=== PATIENT | male | born 1945 | race Caucasian/White ===

== ENCOUNTER → 2017-12-13 14:11 | Outpatient (CLI) | payer MEDICARE, OTHER, SELFPAY ==
[2017-12-13 16:53] LABS: Creatinine, Serum 1.09 mg/dL (0.70-1.30); EST Glomerular Filtration Rate 70 mL/min (>60); Est Glom Filt Rate - Afr Amer 85 mL/min (>60); PSA,Total- Diagnostic 5.99 ng/mL (0.0-4.0)
== END ==
PROVIDERS: Family Provider Internal Medicine; PCP Internal Medicine; Visit Provider Nurse Practitioner Adult Health
DX: R97.20 Elevated prostate specific antigen [PSA] (principal)
CPT/HCPCS: 36415; 82565; 84153

== ENCOUNTER → 2017-12-13 17:25 | Outpatient (CLI) | payer MEDICARE, OTHER, SELFPAY | PROVIDERS: Family Provider Internal Medicine; PCP Internal Medicine; Visit Provider Nurse Practitioner Adult Health | DX: R82.99 Other abnormal findings in urine (principal); R97.20 Elevated prostate specific antigen [PSA] | CPT/HCPCS: 36415; 82565; 84153; 87086; 87088 ==

== ENCOUNTER → 2017-12-17 09:19 | Outpatient (CLI) | payer MEDICARE, OTHER, SELFPAY ==
--- NOTE | 2017-12-17 09:23 | US_ITS ---
STUDY: RENAL ULTRASOUND - COMPLETE REASON FOR EXAM: Male, 72 years old. Chronic urinary retention TECHNIQUE: Ultrasound evaluation of the kidneys was performed with real-time and static aguilera-scale imaging. COMPARISON: None. FINDINGS: RIGHT KIDNEY: Normal location of the right kidney, which is normal in size. The right kidney measures 12.4 x 6 x 7.1 cm. There is a normal cortex of the right kidney. The renal cortex measures 1.6 cm. There is no right renal mass or cyst. There are no right renal calculi. There is an extra-renal pelvis of the right kidney. There is no distention of the renal calyces. DISTAL RIGHT URETER: There is non-visualization of the distal right ureter. There is no demonstrated right ureterovesical junction calculus. There is a visualized right ureteral jet. LEFT KIDNEY: Normal location of the left kidney, which is normal in size. The left kidney measures 12.9 x 4.8 x 7.2 cm. There is a normal cortex of the left kidney. The renal cortex measures 2 cm. There are 2 cysts within the left kidney, the largest measuring 2.2 cm. There are no left renal calculi. There is no left hydronephrosis. DISTAL LEFT URETER: There is non-visualization of the distal left ureter. There is no demonstrated left ureterovesical junction calculus. There is a visualized left ureteral jet. AORTA: Not imaged. I.V.C.: Not imaged. BLADDER: The distended urinary bladder has a volume of 638 ml. The empty urinary bladder has a volume of 430 ml. The bladder wall is thickened. There is no demonstrated mass within the urinary bladder. There is some internal debris within the bladder which may represent stasis or inflammatory cells. The prostate volume is measured at 58 mL. US/Kidney and Bladder IMPRESSION: Small left renal cyst. Bladder distention with a large postvoid residual. Electronically Signed: Roni Hackett DO at 10:08 EDT Tel , Service support ,
== END ==
PROVIDERS: Family Provider Internal Medicine; PCP Internal Medicine; Visit Provider Nurse Practitioner Adult Health
DX: R33.9 Retention of urine, unspecified (principal)
CPT/HCPCS: 76770

== ENCOUNTER → 2018-03-18 09:50 | Outpatient (CLI) | payer MEDICARE, OTHER, SELFPAY ==
[2018-03-18 11:08] LABS: PSA,Total- Diagnostic 5.12 ng/mL (0.0-4.0)
== END ==
PROVIDERS: Family Provider Internal Medicine; PCP Internal Medicine; Visit Provider Nurse Practitioner Adult Health
DX: R97.20 Elevated prostate specific antigen [PSA] (principal)
CPT/HCPCS: 36415; 84153

== ENCOUNTER → 2018-09-19 14:22 | Outpatient (CLI) | payer MEDICARE, OTHER, SELFPAY ==
[2015-08-30 11:07] VITALS: BMI 31.4
[2018-09-19 16:04] LABS: Creatinine, Serum 1.11 mg/dL (0.70-1.30); EST Glomerular Filtration Rate 69 mL/min (>60); Est Glom Filt Rate - Afr Amer 83 mL/min (>60); PSA,Total- Diagnostic 5.94 ng/mL (0.0-4.0)
== END ==
PROVIDERS: Family Provider Internal Medicine; PCP Internal Medicine; Referring Provider Nurse Practitioner Adult Health; Visit Provider Nurse Practitioner Adult Health
DX: R97.20 Elevated prostate specific antigen [PSA] (principal); R33.9 Retention of urine, unspecified
CPT/HCPCS: 36415; 82565; 84153

== ENCOUNTER → 2019-03-03 15:53 | Outpatient (CLI) | payer MEDICARE, OTHER, SELFPAY ==
--- NOTE | 2019-03-03 15:57 | MRI_ITS ---
STUDY: MRI LUMBAR SPINE WITHOUT CONTRAST REASON FOR EXAM: Male, 73 years old. Spinal stenosis low back pain TECHNIQUE: Standardized fat and water weighted pulse sequences were obtained in the sagittal and axial planes. COMPARISON: None FINDINGS: There is grade 1 degenerative anterolisthesis of L4 on L5. Remainder of the spine is aligned. Marrow, paraspinous soft tissues and SI joints are normal. Conus medullaris terminates at T12-L1 with normal cauda equina. Spinal canal is patent at all levels. There is [id number] bilateral L4-L5 foraminal stenosis. Remainder of the levels have no significant foraminal stenosis. Lateral recesses are patent at all levels. MRI/Spine Lumbar (Routine) IMPRESSION: 1. Patent thecal sac. 2. L4-L5 spondylolysis, grade 1 anterolisthesis and mild to moderate bilateral foraminal stenosis. Electronically Signed: Venessa Triana, at 18:02 EDT Tel , Service support ,
== END ==
PROVIDERS: Family Provider Family Medicine; PCP Family Medicine; Referring Provider Family Medicine; Visit Provider Family Medicine
DX: M48.00 Spinal stenosis, site unspecified (principal)
CPT/HCPCS: 72148

== ENCOUNTER → 2019-03-23 17:30 | Outpatient (CLI) | payer MEDICARE, OTHER, SELFPAY ==
[2015-08-30 11:07] VITALS: BMI 31.4
== END ==
PROVIDERS: Family Provider Family Medicine; PCP Family Medicine; Referring Provider Nurse Practitioner Adult Health; Visit Provider Nurse Practitioner Adult Health
DX: R82.998 Other abnormal findings in urine (principal)
CPT/HCPCS: 87086; 87088

== ENCOUNTER → 2019-03-28 13:32 | Outpatient (CLI) | payer MEDICARE, OTHER, SELFPAY ==
[2015-08-30 11:07] VITALS: BMI 31.4
--- NOTE | 2019-03-28 13:36 | CT_ITS ---
STUDY: CT ABDOMEN AND PELVIS WITH AND WITHOUT CONTRAST REASON FOR EXAM: Male, 73 years old. Hematuria RADIATION DOSAGE (If Supplied By Facility): CTDIvol = ( 27.18 ) mGy, DLP = ( 3910.70 ) mGycm TECHNIQUE: Transaxial images were obtained from the dome of the diaphragm to the symphysis pubis without oral contrast. IV Isovue 300 100 was administered. Sagittal and coronal images were reconstructed. Individualized dose optimization techniques were used for this CT. COMPARISON: None. FINDINGS: The lung bases are clear. The visualized portions of the heart and pericardium are within normal limits. There are no calcified gallstones present. The liver, spleen, pancreas and adrenal glands are within normal limits. There is a 3 mm nonobstructing stone in the collecting system of the left kidney. There are no additional urinary calculi. There is mild right hydronephrosis with no cause identified on this study. There is no left hydronephrosis. There is symmetric enhancement and excretion noted in the kidneys following contrast administration. There is a 1.4 cm simple cyst in the left kidney. There are no additional renal lesions. The urinary bladder is unremarkable. There is no bowel obstruction or inflammation. There is no abdominal or pelvic free air, free fluid or lymphadenopathy. The aorta is normal in caliber. There are no destructive osseous lesions. CT/CT Abd/Pelvis W/WO Contrast IMPRESSION: 3 mm nonobstructing stone in the collecting system of the left kidney. No additional urinary calculi. Mild right hydronephrosis with no cause identified on this study. No left hydronephrosis. Simple cyst in the left kidney. No additional renal lesions. Electronically Signed: Willy Alford, at 14:19 EDT Tel , Service support ,
[2019-03-28 13:46] LABS: CREATININE FINGERSTICK 0.8 mg/dL (0.70-1.30); EGFR FINGERSTICK > 60.0000 mL/min (>60)
== END ==
PROVIDERS: Family Provider Family Medicine; PCP Family Medicine; Referring Provider Nurse Practitioner Adult Health; Visit Provider Nurse Practitioner Adult Health
DX: R31.29 Other microscopic hematuria (principal)
CPT/HCPCS: 74178; Q9967

== ENCOUNTER 2019-04-05 15:30 | Outpatient (RCR) | payer MEDICARE, OTHER, SELFPAY ==
--- NOTE | 2019-03-15 12:45 | HP.PTEVAL_ITS ---
Patient's Visit Information ANJUM GILBERT is a 73 year old M referred to Physical Therapy by Reema Myers MD with a diagnosis of BACK PAIN AND FORAMINAL STENOSIS AT L4L5. Date of Evaluation: 03/15/19 Physical Therapist: Landy Daniels, PT, Cert MDT - Visit Plan Frequency: 2-3x /Week Duration: 4-6 Weeks Plan: PT 2X'S A WEEK X 5 VISITS TOTAL. POSTURE CORRECTION/STRENGTHENING, INSTRUCTION IN APPROPRIATE BODY MECHANICS AND ACTIVITY MODIFICATIONS. DLS ST ARTING WITH A NEUTRAL SPINE PROGRESSING ROM TOLERATED. INDY LE ROM, STRETCHING AND STRENGTHENING. FOCUS ON HEP INSTRUCTION WITH WRITTEN INSTRUCTION. - Subjective Findings: Work/Leisure: RETIRED. Disability: YES - LOST HEARING IN [place]. Present symptoms: LOW BACK PAIN. NO LE SX'S. Present since: YEARS. Pain Scale: WORST 7/10, LEAST 0/10. Currently: 0/10. Commenced as a result of: NO APPARENT REASON. Symptoms at onset: LOW BACK. Worse: STANDING AND WALKING. Better: BENDING OVER AT THE WAIST, ALEVE, SITTING. Disturbed sleep: NO. P revious history/Previous treatment: UNREMARKABLE. Coughing/sneezing/straining: NEGATIVE. Gait: DISTANCE AND TIME LIMITED. PATIENET REPORTS HE WALKS A LITTLE BENT FORWARD AND TAKES SHORT STEPS. Difficulty initiating urinatin: YES - SEEING A UROLOGIST. Accidents: NO. Unexplained weight loss: NO. Imaging: LUMBAR MRI - STENOSIS. PMH: HTN, HIGH CHOLESTEROL, HEARING LOSS. Recent major surgery: NO - Objective Sitting/Standing Posture: POOR. Lordosis: REDUCED. Lateral shift: NO. Relevant shift: N/A. Active Correction of posture: NE. Other Observations: T HIS PATIENT AMBULATES INDEP'LY INTO TO PT X APPROX 300 FEET WITH INCREASED TRUNK FLEXION AND DECREASED INDY STRIDE LENGTH. NO LOB. Motor deficit: INDY LE'S 5/5 WITH MMT'ING EXCEPT MILD WEAKNESS NOTED IN HIPS. Sensory deficit: NO. ROM deficit: TIGHT INDY HS'S AND HIP FLEXORS. Reflexes: UNABLE TO ELICIT INDY LE DTR'S. Dural Signs: NEGATIVE. Lumbar mvmt loss: flex - MIN. ext - MOD. R SG - MARINO. L SG - MARINO. Core strength: POOR - Goals Goal 1:: DECREASE C/O LOW BACK PAIN/TIGHTNESS Goal Time Frame: 4-6 Weeks Goal 2:: IMPROVE STANDING AND WALKING FUNCTION Goal Time Frame: 4-6 Weeks Goal 3:: INSTRUCT IN PROPHYLAXIS/INDEP WITH HEP FOR CONTINUED IMPROVEMENT ONCE FORMAL PHYSICAL THERAPY CONCLUDES. Goal Time Frame: 4-6 Weeks - Rehabilitation Potential Rehabilitation Potential: Fair - Anticipated Interventions Patient/Client Instruction: Educate patient on: Condition, Plan of Care, Risk Factors, Benefits of Fitness Program For the Purpose of:: To improve self management Therapeutic Exercise to Include: Strength training, Body mechanics, Postural training, Flexibilty training, Dynamic Lumbar Stabilization For the Purpose of:: To decrease pain, To improve muscle performance and motor function, To increase tolerance to activity/condition/position, To improve ability of physical actions for home/community/work/leisure, To improve gait and locomotor functions Thank you for the opportunity to evaluate your patient. For Medicare and Medicare HMO plans, please review the plan of care and approve it. It will need to be FAXED BACK to us at [phone] for Medicare purposes. For Medicare only, by signing this I certify the plan of care. Please let me know if there are questions or concerns regarding this plan of care. Physician Signature: Date:
--- NOTE | 2019-04-12 16:03 | HP.PTDCSUM ---
HP - PT D/C Summary It has been my pleasure to treat ANJUM GILBERT under orders from Reema Myers MD, for the diagnosis of BACK PAIN AND FORAMINAL STENOSIS AT L4L5 for a total of 4 visit(s). Discharge Date: Please see the following information for a summary of their discharge status. - Subjective Subjective: Pt reports that walking long distance and standing is still bothering him. Pt reports not being compliant w/any of the HEP. Too busy - Pain lumbar Pain Intensity (Out of 10): 0 - Objective Objective/Function: Pt feels that at this time, he doesn't feel like he has time to continue PT. Pt is still having pain w/walking. He hasn't been compliant w/HEP and he hasn't been in PT long enough to see as many results as we would like. Pt reports only 10% at this time. - Goals Goal 1:: DECREASE C/O LOW BACK PAIN/TIGHTNESS Goal 2:: IMPROVE STANDING AND WALKING FUNCTION Goal 3:: INSTRUCT IN PROPHYLAXIS/INDEP WITH HEP FOR CONTINUED IMPROVEMENT ONCE FORMAL PHYSICAL THERAPY CONCLUDES. - Plan Plan: PT recheck is needed but pt defers d/t busy schedule. Pt wants today to be last day d/t time restraints. - D/C Information If there are questions or concerns regarding this patient's physical therapy, please feel free to call me at [phone]. Thank you for the referral of this patient. Sincerely, Landy Daniels, PT, Cert MDT
== END 2019-04-05 19:00 | disposition home or self-care (01) ==
LOC: PT 15:30
PROVIDERS: Family Provider Family Medicine; PCP Family Medicine; Referring Provider Family Medicine; Visit Provider Family Medicine
DX: M54.9 Dorsalgia, unspecified (principal)
CPT/HCPCS: 97110; 97162; 97530

== ENCOUNTER 2019-06-07 08:29 | Day surgery (SDC) | payer MEDICARE, OTHER, SELFPAY ==
[2019-05-31 10:09] VITALS: BP 123/73; PULSE 55; RESP 18; TEMP 36.4; O2SAT 97; BMI 30.8
--- NOTE | 2019-05-31 10:29 | SDCEKG_ITS ---
Test Reason : Blood Pressure : / mmHG Vent. Rate : 055 BPM Atrial Rate : 055 BPM P-R Int : 216 ms QRS Dur : 108 ms QT Int : 424 ms P-R-T Axes : 078 053 054 degrees QTc Int : 405 ms Sinus bradycardia with 1st degree A-V block Otherwise normal ECG Confirmed by NANCY VELASQUEZ, PADMINI ([id number]), senior technical editor GIDEON MESA ([id number]) on 06/04/2019 10:06:16 AM Referred By: Hiram Christianson Confirmed By:FLAVIO CRUZ MD
[2019-05-31 10:50] LABS: Hematocrit 50.2 % (40-54); Hemoglobin 16.8 g/dL (13.0-16.5); Mean Corp Hgb Conc 33.5 g/dL (32-36); Mean Corpuscular Hgb 32.4 pg (27.0-32.0); Mean Corpuscular Volume 96.9 fL (80-94); Mean Platelet Vol. 10.7 fl (6.2-12.0); Platelet Count 143 K/mm3 (150-450); RBC Distribution Width CV 13.5 % (11.6-14.6); Red Blood Count 5.18 M/mm3 (4.6-6.2); White Blood Count 6.4 K/mm3 (4.4-11.0)
[2019-06-07] VITALS (10 sets, daily range): BP systolic 124–159; BP diastolic 66–99; PULSE 50–58; RESP 15–18; TEMP 36.4–36.8; O2SAT 95–100; BMI 30.8; BMI 30.9
[2019-06-07] MEDS: Lactated Ringers 1,000 ML 100 ML IV ×2 (09:07→13:20)
--- NOTE | 2019-06-07 10:30 | PROS_PTH ---
PATIENT: ANJUM GILBERT LOC: [facility] [place] U#:[id number] AGE/SX: 73/M ROOM: RE06/07/[address]: Dr. Hiram Christianson MD : [id number] BED: DIS: 06/08/2019 SPEC #: [id number] RECD: 06/07/19 16:47 STATUS: SHERLEY CINDY #: [id number] ARIC: 06/07/19 10:[address]: Hiram Christianson DEPT: SURGICAL PATHOLOGY RECD BY: Juan Carlos Worthy ENTERED: 06/08/19 09:56 SP TYPE: TURP OTHR DR: Dr. Reema Myers MD Tissues: Prostate, NOS Procedures: Surgery Specimen Level IV HEADER OPERATION: Cysto, TUR prostate, Olympus PRE-OP DIAGNOSIS: BPH with obstruction TISSUE SUBMITTED: Prostate tissue MICROSCOPIC DIAGNOSIS Prostate, transurethral resection: Benign nodular hyperplasia, glandular and stromal types. Mild chronic inflammation. AM:belkis 06/09/19 MICROSCOPIC DESCRIPTION Slides are reviewed. GROSS DESCRIPTION Received is one container labeled with the patient's name and designated prostate tissue. The specimen consists of multiple irregular fragments of pink-cedillo, rubbery, soft tissue that in aggregate weigh 9.3 gm and measure in aggregate 6 x 6 x 0.6 cm. The entire specimen is submitted in nine cassettes. / AM:belkis 06/08/19 TC:3 CPT: 49323
[2019-06-07] MEDS: Cefazolin 2 GM in 0.9% Normal Saline 100 ML IV (12:18)
--- NOTE | 2019-06-07 13:07 | DCINST_ITS ---
Discharge Diet: Light diet - advance as tolerated, Soft diet Discharge Activity: May not drive while taking narcotic pain medications., May Shower Lifting Restrictions: No lifting x 6 weeks. Call your doctor if your incision/area has: Sudden Increased Bleeding Call your doctor if you observe: Fever of 101 or Higher, Inability to urinate Suture Line Care: Avoid Pulling/Pushing, Avoid Pinching/Bending Instructions: Transurethral Resection of the Prostate (TURP): Home Recovery Allergies/Adverse Reactions: Allergies atorvastatin calcium [From Lipitor] Allergy (Verified 06/07/19 08:46) muscle aches Medications to take at Discharge Metoprolol Tartrate [Lopressor (beta xenia)] 25 mg PO BID 08/23/15 Simvastatin [Zocor] 80 mg PO QHS 08/23/15 [place]-3 Fatty Acids/Fish Oil [Fish Oil 1,000 mg Capsule] 3 ea PO BID 05/31/19 Ciprofloxacin [Cipro] 500 mg PO BID #14 tab 06/07/19 Hydrocodone/Acetaminophen [[place] 5-325 Tablet] 1 each PO Q4H PRN PRN 5 Days #14 tablet 06/07/19 The following prescriptions were given: Ciprofloxacin [Cipro] 500 mg PO BID #14 tab Transmission Status: Pending to [facility] Hydrocodone/Acetaminophen [[place] 5-325 Tablet] 1 each PO Q4H PRN PRN 5 Days #14 tablet PRN Reason: Pain Score 1-10/10 Transmission Status: Sent to [facility] Primary Care Physician: Reema Myers MD [Primary Care Provider] - Test Results: Test results from this visit will be discussed in further detail at your follow- up appointment, if applicable. Please Follow Up With: Hiram Christianson MD When: please call to make an appointment. Proposed Discharge Date: 06/08/19
--- NOTE | 2019-06-07 13:12 | OP.PCM_ITS ---
Report of Operation Date of Procedure: 06/07/19 Pre-Operative Diagnosis: BPH with obstruction Post-Operative Diagnosis: Same Surgery/Procedure Performed:: Transurethral resection of the prostate Description of Surgical Findings:: 73-year-old male was taken back to the operating room at the smooth induction of general anesthesia he was placed supine on the table and then in dorsolithotomy position. Legs were in stirrups were made sure the legs were properly padded and we made sure he was properly padded on the table we then prepped and draped the penis and testicle usual sterile fashion I then went into the bladder with a 21 [place] rigid cystourethroscope using a 30 degree lens the entire length urethra is normal the sphincter was intact. Identified the verumontanum. Identified bilateral hypertrophy with obstruction. Inside the bladder he did have a very distended smooth sort of floppy looking atonic bladder. The trigone was identified the right and left ureter orifice was identified there was no tumors or stones within the bladder but again is very smooth non-trabeculated floppy looking bladder when I drained the bladder, flopped over and itself it looks like it from chronic obstruction the bladder is been stretched out the muscle appeared weak. I then removed the cystoscope I went in with a 24 [place] noncontinuous flow flow bipolar resectoscope, I then started resecting the prostate resected the first the floor the prostate all the way back to the verumontanum I then resected the right lobe of the prostate over the beat all the way to the apex of the left lobe prostate all the way to the apex I then very carefully resected the apical tissue made sure that the sphincter mean Moshe remain intact I did not do any resection past the verumontanum I Ellik out all the chips obtained good hemostasis had a nice smooth resection all the way from the verumontanum into the bladder neck a wide open channel I did a flow test because of a weak flow because he had a, floppy looking bladder could not get a really strong flow but there was really no other tissues were resected a nice wide open channel. Obtain hemostasis with electrocautery placed the catheter into the bladder the prostate size a prior about 40 g size prostate resected about 40 g of tissue and then I put a catheter bladder put on continuous bladder irrigation and manually irrigated the urine was nice and clear patient was extubated transferred to the table taken back to PACU in good condition. Type of Anesthesia:: General Drains: 22fr 3 way - Admit VTE Documentation VTE Present on Admission: No VTE Mechan Device Prophylaxis: SCD's
--- NOTE | 2019-06-07 13:16 | HP.PCM_ITS ---
History of Present Illness Date of Admission: 06/07/19 Chief Complaint: bph with obstruction The patient is a 73 year old male with BPH and obstruction presents the hospital today for a TURP to hopefully alleviate urinary symptoms Past Medical History Allergies atorvastatin calcium [From Lipitor] Allergy (Verified 06/07/19 08:46) muscle aches Home Medications: Ambulatory Orders Medication Instructions Recorded Metoprolol Tartrate [Lopressor 25 mg PO BID 08/23/15 (beta xenia)] Simvastatin [Zocor] 80 mg PO QHS 08/23/15 [place]-3 Fatty Acids/Fish Oil [Fish 3 ea PO BID 05/31/19 Oil 1,000 mg Capsule] Ciprofloxacin [Cipro] 500 mg PO BID #14 tab 06/07/19 Hydrocodone/Acetaminophen [[place] 1 each PO Q4H PRN PRN 5 Days #14 06/07/19 5-325 Tablet] tablet Smoking Status: Current every day smoker Tobacco Use: Cigarettes VTE Information - Inpt Only VTE Present on Admission: No - Physical Exam Vitals/I&O's: Vital Signs Temp Pulse Resp BP Pulse Ox 97.7 F L 57 L 15 128/81 H 95 06/07/19 08:47 06/07/19 08:47 06/07/19 08:47 06/07/19 08:47 06/07/19 08:47 Oxygen Delivery Method Room Air Weight: 106.1 kg Body Mass Index (BMI) 30.8 General: Alert, Oriented x3, Cooperative HEENT: Atraumatic, PERRLA, EOMI, Normocephalic Neck: Supple, No JVD, Negative Carotid Bruits Lungs: Clear to auscultation, Normal air movement Cardiovascular: Regular rate, No murmurs Abdomen: Bowel Sounds Present, Soft, Non Tender Extremities: No edema, Capillary Refill Less than 3 Seconds Skin: No rashes, No breakdown Musculoskeletal: No Tenderness to Palpation of Joints or Extremities Neurological: Cranial nerves II-XII grossly intact Psych/Mental Status: Normal Affect, Appropriate Current Medications Acetaminophen (Tylenol) 500 mg PO Q4H PRN PRN PRN Reason: Pain Score 1-10/10 /Headache Belladonna Alkaloids/Opium (B & O) 60 mg RECTAL Q6H PRN PRN PRN Reason: Spasm Docusate Sodium (Colace) 100 mg PO BID DANIELLE Lactated Ringer's () 1,000 mls @ 100 mls/hr IV .Q10H [facility] Last Admin: 06/07/19 09:07 Dose: 100 mls/hr Documented by: Sodium Chloride () 1,000 mls @ 125 mls/hr IV .Q8H [facility] Ciprofloxacin (Cipro) 400 mg in 200 mls @ 200 mls/hr IV Q12 [facility] Stop: 06/08/19 10:59 Ibuprofen (Motrin) 600 mg PO Q6H PRN PRN PRN Reason: Pain Score 1-10/10 Magnesium Hydroxide (Milk Of Magnesia) 15 ml PO DAILY [facility] Metoclopramide HCl (Reglan) 10 mg IV Q8H PRN PRN PRN Reason: Nausea/vomiting Ondansetron HCl (Zofran) 4 mg IV Q6H PRN PRN PRN Reason: Nausea Oxycodone HCl (Oxyir) 5 mg PO Q4H PRN PRN PRN Reason: Pain Score 1-10/10 Pantoprazole Sodium (Protonix) 20 mg PO DAILY [facility] Tolterodine Tartrate (Detrol La) 4 mg PO DAILY PRN PRN PRN Reason: Spasms Assessment/Plan Plan to proceed with a TURP spoke to the patient regarding the surgery risk and benefits were discussed including the risk of incontinence damage to the sphincter, the risk of failure to cure his urinary symptoms failure to relieve symptoms with with surgery. Risk of bleeding, risk of infection he knows he n eed a catheter afterwards and has been 1 night in the hospital also we talked with the risk of anesthesia.
[2019-06-07] MEDS: 0.45% Normal Saline 1,000 ML 125 ML IV ×2 (15:00→21:33)
[2019-06-07] MEDS: Docusate Sodium 100 MG Capsule PO (21:33)
[2019-06-07] MEDS: Ciprofloxacin 400 MG/200 ML BAG 200 MG IV (21:34)
[2019-06-08 02:10] VITALS: BP 115/60; PULSE 51; RESP 16; TEMP 36.7; O2SAT 94
[2019-06-08] MEDS: 0.45% Normal Saline 1,000 ML 125 ML IV (06:22)
[2019-06-08 06:38] LABS: Hematocrit 42.9 % (40-54); Hemoglobin 14.5 g/dL (13.0-16.5); Mean Corp Hgb Conc 33.8 g/dL (32-36); Mean Corpuscular Hgb 32.4 pg (27.0-32.0); Mean Platelet Vol. 10.7 fl (6.2-12.0); Platelet Count 135 K/mm3 (150-450); RBC Distribution Width CV 13.6 % (11.6-14.6); RBC Distribution Width SD 48.5 fl (35.1-43.9); Red Blood Count 4.47 M/mm3 (4.6-6.2); White Blood Count 9.8 K/mm3 (4.4-11.0)
[2019-06-08 07:01] LABS: Anion Gap 5 (5-15); BUN 8 mg/dL (7-18); BUN/Creat Ratio 9.2 RATIO (10-20); Calcium,Total 8.2 mg/dL (8.5-10.1); Chloride 111 mmol/L (98-107); Creatinine, Serum 0.86 mg/dL (0.70-1.30); EST Glomerular Filtration Rate 91 mL/min (>60); Est Glom Filt Rate - Afr Amer 111 mL/min (>60); Estimated Creatinine Clearance 81.46 ml/min; Glucose 99 mg/dL (74-106); Potassium 3.7 mmol/L (3.5-5.1); Sodium Level 142 mmol/L (136-145)
[2019-06-08 07:30] VITALS: BP 130/72; PULSE 64; RESP 16; TEMP 36.8; O2SAT 94
[2019-06-08] MEDS: Ciprofloxacin 400 MG/200 ML BAG 200 MG IV (08:40)
[2019-06-08] MEDS: Docusate Sodium 100 MG Capsule PO (08:41)
[2019-06-08] MEDS: Pantoprazole Sodium 20 MG Tablet PO (08:41)
[2019-06-08 10:27] VITALS: PULSE 65
[2019-06-08] MEDS: Metoprolol Tartrate 25 MG Tablet PO (10:27)
[2019-06-08 12:53] VITALS: BP 152/84; PULSE 60; RESP 16; TEMP 36.3; O2SAT 97
== END 2019-06-08 12:59 | disposition home or self-care (01) ==
LOC: SDC 08:29 → AC 08:31 → MS2 13:14
PROVIDERS: Anesthesiology; Family Provider Family Medicine; PCP Family Medicine; Referring Provider Urology; Visit Provider Urology
PROC: (CPT 52601; principal; 2019-06-07 10:20)
DX: N40.1 Benign prostatic hyperplasia with lower urinary tract symptoms (principal); N13.8 Other obstructive and reflux uropathy; R33.8 Other retention of urine; I10 Essential (primary) hypertension; E78.00 Pure hypercholesterolemia, unspecified; Z79.899 Other long term (current) drug therapy; F17.210 Nicotine dependence, cigarettes, uncomplicated
CPT/HCPCS: 52601; 36415; 80048; 85027; 88305; 93005; J7120; J0744

== ENCOUNTER → 2019-12-26 13:47 | Outpatient (CLI) | payer MEDICARE, OTHER, SELFPAY ==
[2019-06-07 15:06] VITALS: BMI 30.9
[2019-12-26 16:07] LABS: Anion Gap 6 (5-15); BUN 18 mg/dL (7-18); BUN/Creat Ratio 19.8 RATIO (10-20); Calcium,Total 8.8 mg/dL (8.5-10.1); Chloride 110 mmol/L (98-107); Creatinine, Serum 0.91 mg/dL (0.70-1.30); EST Glomerular Filtration Rate 86 mL/min (>60); Est Glom Filt Rate - Afr Amer 104 mL/min (>60); Glucose 97 mg/dL (74-106); PSA,Total- Diagnostic 4.61 ng/mL (0.0-4.0); Potassium 4.1 mmol/L (3.5-5.1); Sodium Level 142 mmol/L (136-145)
== END ==
PROVIDERS: PCP Family Medicine; Referring Provider Urology; Visit Provider Urology
DX: N40.1 Benign prostatic hyperplasia with lower urinary tract symptoms (principal)
CPT/HCPCS: 36415; 80048; 84153

== ENCOUNTER → 2020-04-29 | Outpatient (CLI) | payer MEDICARE, OTHER, SELFPAY ==
[2019-06-07 15:06] VITALS: BMI 30.9
== END | disposition home or self-care (01) ==
LOC: LABSPEC 17:08
PROVIDERS: PCP Family Medicine; Visit Provider Urology
DX: N39.0 Urinary tract infection, site not specified (principal)
CPT/HCPCS: 87077; 87086; 87088; 87186

== ENCOUNTER → 2021-03-31 08:08 | Outpatient (CLI) | payer MEDICARE, OTHER, SELFPAY ==
--- NOTE | 2021-03-31 08:10 | ECHOD_ITS ---
Reason For Study: SFIB Procedure This was a 2D Doppler, Color Flow transthoracic echocardiogram. Exam performed in department. Left Ventricle Normal LV size. Left ventricular systolic function is normal. The estimated ejection fraction is 60 %. No regional wall motion abnormalities noted. Right Ventricle Normal RV size. Normal systolic function. Atria The left atrium is mildly enlarged. Normal right atrium. Mitral Valve Normal mitral valve. Tricuspid Valve Normal tricuspid valve. Normal pulmonary artery pressure. Mild tricuspid valve insufficiency. Pulmonary artery systolic pressure is 30 mmHg. Aortic Valve Trisinus/trileaflet aortic valve. Mild focal aortic valve calcification. Mild (1+) aortic valve insufficiency. Pulmonic Valve Normal pulmonic valve. Great Vessels Mild to moderately dilated aortic root. The pulmonary artery is normal size. Normal inferior vena cava. Pericardium/Pleural No pericardial effusion. MMode/2D Measurements & Calculations LVIDd: 5.0 cm IVSd: 1.1 cm Ao root diam: 4.0 cm LVIDs: 3.5 cm LVPWd: 1.1 cm RVDd: 3.3 cm FS: 31.0 % LAV(MOD-bp): 81.3 ml LVAd ap4: 24.7 cm2 LVAd ap2: 24.9 cm2 LAV(MOD-bp) Indexed: 35.5 ml/m2 LVLd ap4: 7.9 cm LVLd ap2: 8.0 cm LAV(MOD-sp2): 79.8 ml EDV(MOD-sp4): 63.5 ml EDV(MOD-sp2): 66.0 ml LAV(MOD-sp4): 81.0 ml EDV(sp4-el): 65.6 ml EDV(sp2-el): 66.3 ml LVAs ap4: 14.0 cm2 LVAs ap2: 13.5 cm2 LVLs ap4: 6.9 cm LVLs ap2: 6.6 cm ESV(MOD-sp4): 26.3 ml ESV(MOD-sp2): 23.1 ml ESV(sp4-el): 24.2 ml ESV(sp2-el): 23.6 ml EF(MOD-sp4): 58.5 % EF(MOD-sp2): 65.0 % EF(sp4-el): 63.1 % SV(MOD-sp4): 37.2 ml SV(MOD-sp2): 42.9 ml SV(sp4-el): 41.4 ml LA dimension(2D): 4.5 cm LA A4 area: 26.3 cm2 RA A4 area: 20.7 cm2 Doppler Measurements & Calculations MV E max michael: 102.3 cm/sec Ao V2 max: 129.1 cm/sec LV V1 max: 117.1 cm/sec Ao max P.7 mmHg LV V1 max P.5 mmHg PA V2 max: 87.5 cm/sec TR max michael: 258.0 cm/sec TR max P.6 mmHg ECHO/Echo Complete Interpretation Summary Normal LV size. Left ventricular systolic function is normal. The estimated ejection fraction is 60 %. Mild to moderately dilated aortic root. The left atrium is mildly enlarged. Ordering Physician: Matthew Dodd Referring Physician: NOHELIA SOLORIO Performed By: Mojgan Oliver, NAY, RVT
== END ==
PROVIDERS: PCP Family Medicine; Referring Provider Internal Medicine Cardiovascular Disease; Visit Provider Internal Medicine Cardiovascular Disease
DX: R94.31 Abnormal electrocardiogram [ECG] [EKG] (principal); I48.91 Unspecified atrial fibrillation
CPT/HCPCS: 93225; 93226; 93306

== ENCOUNTER → 2021-04-16 06:45 | Outpatient (CLI) | payer MEDICARE, OTHER, SELFPAY ==
--- NOTE | 2021-04-16 13:02 | STRESSREP ---
Stress Test Report Pharmacologic myocardial perfusion stress test. 75-year-old man with a history of new onset atrial fibrillation. Stress protocol: Resting EKG demonstrates atrial fibrillation with a rate of 79 bpm normal intervals are noted resting blood pressure is 142/92 mmHg. 0.4 mg of regadenoson was infused per usual protocol followed by rapid intravenous saline flush injection continuous EKG monitoring was performed. The maximum heart rate attained was 103 bpm which was 72% of maximum predicted heart rate the maximum workload was [address] changes were noted with noted notion of ischemia. The peak blood pressure is 142/92 mmHg. Myocardial perfusion protocol. 14.6 mCi of technetium 99m sestamibi was injected at rest. 0.4 mg of regadenoson was infused per usual protocol. At peak infusion 44.3 mCi of technetium 99m sestamibi was injected stress images were obtained stress and rest images were reconstructed and compared in the short axis vertical long and horizontal long axis. Gated images were also obtained. Perfusion SPECT analysis: Review of the stress images demonstrate normal uptake of tracer noted in all areas of the myocardium. The resting images similarly demonstrate normal uptake of tracer noted in all areas of the myocardium. No areas of reversibility are noted to suggest ischemia and no previous infarct is noted. Gated SPECT analysis: The gated ejection fraction is 58%. Conclusion: Normal pharmacologic myocardial perfusion stress test. Preserved ejection fraction. Atrial fibrillation noted.
== END ==
PROVIDERS: PCP Family Medicine; Referring Provider Internal Medicine Cardiovascular Disease; Visit Provider Internal Medicine Cardiovascular Disease
DX: I48.91 Unspecified atrial fibrillation (principal); R94.31 Abnormal electrocardiogram [ECG] [EKG]
CPT/HCPCS: 78452; 93017; A9500; A4216; J2785

== ENCOUNTER → 2021-10-31 | Outpatient (CLI) | payer MEDICARE, OTHER, SELFPAY ==
[2021-10-31 16:04] LABS: Absolute Lymphocyte Count 1.47 X10^3/uL (0.83-4.51); Absolute Neutrophil Count 3.8 X10^3/uL (2.0-7.7); Basophil# 0.07 X10^3/uL; Basophil% 1.1 % (0-1); Eosinophil# 0.44 X10^3/uL; Eosinophils% 6.6 % (0-5); Hematocrit 39.8 % (40-54); Lymphocyte # 1.47 X10^3/ul (0.83-4.51); Lymphocyte % 22.1 % (19-41); Mean Corp Hgb Conc 32.7 g/dL (32-36); Mean Corpuscular Hgb 31.9 pg (27.0-32.0); Mean Corpuscular Volume 97.5 fL (80-94); Mean Platelet Vol. 10.8 fl (6.2-12.0); Monocyte# 0.58 X10^3/uL; Monocyte% 8.7 % (0-10); NRBC Flagged by Analyzer 0 % (0-5); Neutrophil # 3.84 X10^3/uL (2.7-7.7); Neutrophil % 57.7 % (47-70); Platelet Count 161 K/mm3 (150-450); RBC Distribution Width CV 14.7 % (11.6-14.6); RBC Distribution Width SD 52.8 fl (35.1-43.9); Red Blood Count 4.08 M/mm3 (4.6-6.2); White Blood Count 6.7 K/mm3 (4.4-11.0)
[2021-10-31 17:02] LABS: Anion Gap 3 (5-15); BUN 17 mg/dL (7-18); BUN/Creat Ratio 14.5 RATIO (10-20); Calcium,Total 8.7 mg/dL (8.5-10.1); Chloride 109 mmol/L (98-107); Creatinine, Serum 1.17 mg/dL (0.70-1.30); EST Glomerular Filtration Rate 64 mL/min (>60); Est Glom Filt Rate - Afr Amer 78 mL/min (>60); Glucose 119 mg/dL (74-106); Potassium 4.1 mmol/L (3.5-5.1); Sodium Level 141 mmol/L (136-145); T4 Free Direct 1.01 ng/dL (0.76-1.46); Thyroid Stim Hormone (TSH) 1.68 uIU/mL (0.358-3.74)
== END | disposition home or self-care (01) ==
PROVIDERS: PCP Family Medicine; Referring Provider Nurse Practitioner Gerontology; Visit Provider Nurse Practitioner Gerontology
DX: R53.83 Other fatigue (principal)
CPT/HCPCS: 36415; 80048; 84439; 84443; 85025

== ENCOUNTER → 2021-11-13 | Outpatient (CLI) | payer MEDICARE, OTHER, SELFPAY ==
--- NOTE | 2021-11-13 13:01 | CDU_ITS ---
Reason For Study: dizziness Rt. Velocities/BP Lt. Velocities/BP Prox CCA 73.4/18.6 cm/sec. Prox CCA 79.6/26.7 cm/sec. Mid CCA 55.2/13.4 cm/sec. Mid CCA 77.8/20.1 cm/sec. Dist CCA 52.6/17.3 cm/sec. Dist CCA 61.7/20.1 cm/sec. Prox ICA 39.9/14.6 cm/sec. Prox ICA 54.1/24.8 cm/sec. Mid ICA 57.5/22.3 cm/sec. Mid ICA 50.4/22.0 cm/sec. Dist ICA 45.9/19.6 cm/sec. Dist ICA 77.8/33.3 cm/sec. Rt. ICA/CCA = 1.0. Lt. ICA/CCA = 1.0. Prox ECA 65.6/17.3 cm/sec. Prox ECA 60.7/14.5 cm/sec. Rt. Vert. 26.4/7.2 cm/sec. Lt. Vert. 40.0/17.3 cm/sec. Right Extracranial There is intimal thickening but no significant atherosclerotic plaque noted in the right common carotid artery. There is intimal thickening but no significant atherosclerotic plaque noted in the right internal carotid artery. There is intimal thickening but no significant atherosclerotic plaque noted in the right external carotid artery. Antegrade flow is noted in the right vertebral artery. Left Extracranial There is homogeneous, smooth atherosclerotic plaque noted in the left common carotid artery. There is intimal thickening but no significant atherosclerotic plaque noted in the left internal carotid artery. There is heterogeneous, irregular atherosclerotic plaque noted in the left external carotid artery. Antegrade flow is noted in the left vertebral artery. Procedure Carotid Duplex [id number]. This is a Carotid Duplex examination using B-mode, color flow and specral Doppler. The exam was diagnostic. Exam performed in department. VL/Carotid Duplex Ultrasound Interpretation Summary Mild thickening of the right proximal internal carotid artery with less than 50 % stenosis Less than 50% stenosis right external carotid artery Intimal thickening at the proximal left internal carotid artery with less than 50% stenosis Less than 50% stenosis left external carotid artery Patent and antegrade vertebral arteries bilaterally Ordering Physician: Erin Holland Performed By: Osmar Palumbo RVT
== END | disposition home or self-care (01) ==
LOC: CVS 12:59
PROVIDERS: PCP Family Medicine; Referring Provider Nurse Practitioner Gerontology; Visit Provider Nurse Practitioner Gerontology
DX: R42 Dizziness and giddiness (principal)
CPT/HCPCS: 93880

== ENCOUNTER 2022-02-02 10:27 | Day surgery (SDC) | payer MEDICARE, OTHER, SELFPAY ==
[2022-01-30 08:38] VITALS: BMI 30.9
--- NOTE | 2022-01-30 11:56 | RAD_ITS ---
EXAM: XR CHEST, 2 VIEWS CLINICAL INDICATION: dyspnea TECHNIQUE: Frontal and lateral views of the chest. This report was created using [employer] report generation technology. COMPARISON: None. FINDINGS: LUNGS AND PLEURAL SPACES: Unremarkable. No consolidation or edema. No pneumothorax. No effusion. HEART: Unremarkable. Cardiac silhouette not enlarged. MEDIASTINUM: Central airways and mediastinal contour are unremarkable. BONES/JOINTS: Unremarkable. SOFT TISSUES: Unremarkable. RAD/Chest PA and Lateral IMPRESSION: No radiographic evidence of acute cardiopulmonary disease. Electronically Signed: Aaron Portillo MD at 13:53 EDT ,
[2022-01-30 12:25] LABS: Anion Gap 4 (5-15); BUN 16 mg/dL (7-18); BUN/Creat Ratio 15.2 RATIO (10-20); Chloride 110 mmol/L (98-107); Creatinine, Serum 1.05 mg/dL (0.70-1.30); EST Glomerular Filtration Rate 73 mL/min (>60); Est Glom Filt Rate - Afr Amer 88 mL/min (>60); Estimated Creatinine Clearance 65.53 ml/min; Glucose 98 mg/dL (74-106); Potassium 4.3 mmol/L (3.5-5.1); Sodium Level 142 mmol/L (136-145)
--- NOTE | 2022-02-02 12:43 | PCM.OP.BLANK ---
Problems Associated Problem List Diagnoses (1) Longstanding persistent atrial fibrillation: Operative Report Date of Procedure: 02/02/22 DC cardioversion. 76-year-old man with a history of persistent atrial fibrillation. The patient was brought to the cardiac catheterization lab in the postabsorptive nonsedated state. Patient was seen by Dr. Whittington of the critical care division. Informed consent was obtained. Anterior-posterior pads were applied. 40 mg of intravenous propofol was injected and the patient received 200 J of synchronized DC cardioversion energy with prompt reversal to sinus rhythm. Patient tolerated the procedure well. Successful DC cardioversion from atrial fibrillation to sinus rhythm. Follow-up as per office protocol.
--- NOTE | 2022-02-02 13:20 | PRO.PCM_ITS ---
Procedure Report Date of Procedure: 02/02/22 CONSCIOUS SEDATION REPORT DATE OF SERVICE: February 02, 2022 BRIEF HISTORY OF PRESENT ILLNESS: The patient is a 76-year-old male who presented to [facility] for an elective outpatient cardioversion. He is currently anticoagulated on Eliquis. His last surface echocardiogram demonstrated an ejection fraction of approximately 60%. The patient has never been diagnosed with obstructive sleep apnea. He does have a prior tobacco abuse history, but has never been diagnosed with COPD or asthma. He denies any prior anesthetic complications. PHYSICAL EXAMINATION: VITAL SIGNS: Reviewed and were acceptable. GENERAL: The patient is a male, in no apparent distress, speaking in full sentences. HEENT: Normocephalic, atraumatic. Mucous membranes are moist and pink. Good mouth opening noted. Trachea is midline. MP II CHEST: S1, S2 irregularly irregular. No murmurs, rubs or gallops were noted. LUNGS: Clear to auscultation bilaterally without appreciable wheezes, rales or rhonchi. ABDOMEN: Soft, nontender, nondistended. Positive bowel sounds. EXTREMITIES: There is no clubbing, cyanosis or edema. ASA Class: II DESCRIPTION OF PROCEDURE: After confirmation of informed consent, the patient's anesthesia plan was reviewed in detail. Propofol was chosen. Risks and benefits were reviewed and the patient agreed to proceed. At 1238, the patient was given 40 mg of propofol. The patient achieved an appropriate level of sedation and was given a 200 joule synchronized cardioversion by Dr. Dodd at the bedside. This was successful in achieving normal sinus rhythm. The patient was monitored until 1250, at which time he reached his baseline mental status and function. The patient tolerated the procedure well. COMPLICATIONS: None ESTIMATED BLOOD LOSS: None RECOMMENDATIONS: Okay to recover in usual fashion. Procedures Pulmonary 9xxxx: [id number] Con Sedation
== END 2022-02-02 13:45 | disposition home or self-care (01) ==
LOC: CLSP 10:28
PROVIDERS: Physician Assistant Medical; PCP Family Medicine; Referring Provider Internal Medicine Cardiovascular Disease; Visit Provider Internal Medicine Cardiovascular Disease
DX: I48.11 Longstanding persistent atrial fibrillation (principal); N40.0 Benign prostatic hyperplasia without lower urinary tract symptoms; I10 Essential (primary) hypertension; E78.5 Hyperlipidemia, unspecified; E66.9 Obesity, unspecified; Z79.01 Long term (current) use of 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; Z79.899 Other long term (current) drug therapy; Z87.891 Personal history of nicotine dependence; Z68.31 Body mass index [BMI] 31.0-31.9, adult
CPT/HCPCS: 36415; 71046; 80048; 92960; 93005; J7040

== ENCOUNTER 2022-05-06 10:18 | Day surgery (SDC) | payer MEDICARE, OTHER, SELFPAY ==
[2022-04-27 11:50] LABS: Anion Gap 8 (5-15); BUN 16 mg/dL (7-18); BUN/Creat Ratio 13.1 RATIO (10-20); Calcium,Total 9.2 mg/dL (8.5-10.1); Chloride 107 mmol/L (98-107); Creatinine, Serum 1.22 mg/dL (0.70-1.30); EST Glomerular Filtration Rate 61 mL/min (>60); Est Glom Filt Rate - Afr Amer 74 mL/min (>60); Glucose 198 mg/dL (74-106); Potassium 4.2 mmol/L (3.5-5.1); Sodium Level 145 mmol/L (136-145)
[2022-05-05 08:53] VITALS: BMI 31.5
--- NOTE | 2022-05-06 12:19 | OP.PCM_ITS ---
Operative Report Date of Procedure: 05/06/22 DC cardioversion. 76-year-old man with a history of symptomatic atrial fibrillation. Patient has been appropriately therapeutically anticoagulated. Patient was seen by Dr. Aldrich of the critical care division informed consent was obtained. Anterior- posterior pads were applied. 60 mg of intravenous propofol was then administered. 200 J of synchronized DC cardioversion energy was applied with prompt reversal to sinus rhythm. Patient was noted to be bradycardic. Patient tolerated the procedure well. Conclusion: Successful DC cardioversion from atrial fibrillation to sinus rhythm. Continue current medications except for beta-xenia. Follow-up as per office protocol.
--- NOTE | 2022-05-06 14:55 | PCM.OP.PRO ---
Procedure Report Date of Procedure: 05/06/22 CONSCIOUS SEDATION REPORT BRIEF HISTORY OF PRESENT ILLNESS: The patient is a 76-year-old male who presented to [facility] for an elective outpatient cardioversion due to underlying atrial fibrillation. The patient reports no PO intake since midnight, but is currently therapeutic on anticoagulation. The patient does not have a history of EDEN, but does report snoring at baseline. The patient reports no history of smoking or COPD. The patient denies any recent constitutional symptoms such as fevers, chills, nausea or vomiting. The patient denies previous applicable anesthetic complications. Patient's last known ejection fraction was 60%. Patient did have a cardioversion in January and tolerated propofol well. PHYSICAL EXAMINATION: VITAL SIGNS: Reviewed and were acceptable. GENERAL: The patient is a male, in no apparent distress, speaking in full sentences. HEENT: Normocephalic, atraumatic. Mucous membranes are moist and pink. Good mouth opening noted. Trachea is midline. Good neck mobility. MP IV CHEST: S1, S2 irregularly irregular. No murmurs, rubs or gallops were noted. LUNGS: Clear to auscultation bilaterally without appreciable wheezes, rales or rhonchi. ABDOMEN: Soft, nontender, nondistended. Positive bowel sounds. EXTREMITIES: There is no clubbing, cyanosis or edema. ASA Class: II DESCRIPTION OF PROCEDURE: After confirmation of informed consent, the patient's anesthesia plan was reviewed in detail. Propofol was chosen. Risks and benefits were reviewed and the patient agreed to proceed. At 12:08 PM, the patient was given 40 mg of propofol. The patient required a total of 60 mg of propofol throughout the procedure to achieve appropriate sedation. The patient achieved an appropriate level of sedation and received 1 attempt synchronized cardioversion, at [address] Dodd at the bedside. This was successful in achieving normal sinus rhythm. The patient did have significant sinus bradycardia initially after cardioversion. The patient was monitored until 12:22 PM, at which time the patient reached their baseline mental status and function. The patient tolerated the procedure well. COMPLICATIONS: None ESTIMATED BLOOD LOSS: None RECOMMENDATIONS: Okay to recover in usual fashion. Procedures Pulmonary 9xxxx: [id number] Con Sedation
== END 2022-05-06 13:20 | disposition home or self-care (01) ==
LOC: CLSP 10:19
PROVIDERS: Physician Assistant Medical; PCP Family Medicine; Referring Provider Internal Medicine Cardiovascular Disease; Visit Provider Internal Medicine Cardiovascular Disease
DX: I48.11 Longstanding persistent atrial fibrillation (principal); E78.5 Hyperlipidemia, unspecified; I10 Essential (primary) hypertension; Z79.899 Other long term (current) drug therapy; Z79.01 Long term (current) use of 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; Z87.891 Personal history of nicotine dependence
CPT/HCPCS: 36415; 80048; 92960; 93005; J7040

== ENCOUNTER 2022-05-27 10:26 | Day surgery (SDC) | payer MEDICARE, OTHER, SELFPAY ==
--- NOTE | 2022-05-25 10:49 | PCM.HP.BLA ---
History and Physical Date of Admission: 05/27/22 Aj Serrano is a 76-year-old male that presents today for a cardioversion while on amiodarone. He has a history of? hypertension and hyperlipidemia. He presented to our office for an evaluation.? He had been talking to a friend about atrial fibrillation and mentioned whether he had ever been checked out for atrial fibrillation.? Incidentally he was noted to have an irregular heartbeat and his electrocardiogram which was performed demonstrated atrial fibrillation with a rate of 77 bpm.? His most recent Holter monitor demonstrated atrial fibrillation.? His echocardiogram and stress test results are noted below. In 01/2022, he did undergo an unsuccessful cardioversion.? He was started on amiodarone with plans to attempt a second DCCV if he did not convert to sinus rhythm. Pt does note that he is fatigued with almost anything.? He thinks that his has worsened over the last year.? He does not have any chest pain.? He does have SOB with exertion. He denies Orthopnea, and PND. He does not have bleeding issues; no blood in urine, stool or nosebleeds. He denies myalgias, or claudication.? He does not have edema, or sudden weight gain. He does have dizziness with positional changes- he attributes this to vertigo. He denies lightheadedness, syncopal or near syncopal episodes, and headaches. Intake Vital signs: See EMR Allergies No Known Allergies Allergy (Verified 04/09/22 15:53) Medications omega-3 fatty acids-fish oil 340 mg-1,000 mg capsule 3 ea PO BID supplement 05/31/19 [History Confirmed 04/09/22] apixaban 5 mg tablet (Eliquis) 5 mg PO BID #60 tabs 03/18/21 [Rx Confirmed 04/09/22] atorvastatin 40 mg tablet 40 mg PO QHS 03/18/21 [History Confirmed 04/09/22] metoprolol tartrate 50 mg tablet 25 mg PO BID 03/18/21 [History Confirmed 04/09/22] amiodarone 200 mg tablet 200 mg PO DAILY #30 tabs 02/10/22 [Rx Confirmed 04/09/22] PFSH Medical History? BPH (benign prostatic hyperplasia) Cataracts, bilateral Essential hypertension Hyperlipidemia New onset atrial fibrillation (03/14/21) Obesity Tobacco dependence Surgical History? History of appendectomy History of transurethral resection of prostate Family History? Mother Heart disease Hypertension Thyroid disorderFather Heart diseaseBrother Hypertension Social History Smoking Status:? Former smoker quit date: 02/26/21 alcohol intake:? current alcohol intake frequency: a few times a month ROS Const Const: Positive for fatigue; Negative for weakness, body ache, fever(s), headache(s), chills, frequent falls, night sweats, daytime sleepiness, difficulty sleeping, excessive sweating, weight gain, weight loss, increased appetite, poor appetite, anorexia or other Eyes Eyes: Negative for blurry vision or double vision ENT ENT: Positive for dizziness (with quick movements) and balance problems; Negative for headache(s) Cardio Palpitations: No Edema: None Muscle aches with walking: None Resp Respiratory: Positive for SOB with activity (baseline); Negative for SOB at rest, SOB orthopnea\SOB lying down, Cough, Coughing up blood/hemoptysis, chest congestion, pain on inspiration, snoring, stridor, wheezing, crackles, paroxysmal nocturnal dyspnea or other Musc Musc: Positive for joint pain (Hx arthritis bilat hands) and balance problems; Negative for muscle aches/ myalgia or muscle weakness Neuro Neuro: Positive for dizziness (with quick movements); Negative for lightheadedness, near syncope, syncope, orthostatic symptoms, frequent falls, headache(s), weakness, confusion, memory loss, restless legs, blurry vision, double vision, vertigo, seizures, lack of coordination or other Endo Endo: Positive for fatigue; Negative for excessive sweating Cardiology Exam Const Appearance: cooperative and no acute distress Orientation: alert and oriented x3 Head Head: normal to inspection Ears: hearing grossly normal bilaterally Nose: external nose normal Face and Sinus: face symmetric Eyes General: appearance normal, both eyes and all related structures Eyelids: eyelids normal Conjunctivae: conjunctivae normal Pupils: PERRL and pupil size EOM: EOM intact bilaterally Neck Neck: normal visual inspection Carotids: Negative bruit Chest Chest inspection: normal inspection of the chest and normal respiratory effort Auscultation: Bilateral: Clear to Auscultation Cardio Palpation: normal PMI Rate: regular rate Rhythm: irregularly irregular Heart sounds: S1 normal and S2 normal; Negative rub, gallop or murmur GI GI: normal to inspection and soft; Negative no hepatosplenomegaly Neuro General: patient alert, patient oriented x3 and CN's II-XI intact bilaterally Skin Skin: no rashes or lesions noted Extremities Pulses: Normal: Right Posterior Tibial Pulse, Left Posterior Tibial Pulse, Right Radial Pulse and Left Radial Pulse Lower Extremity Edema: None: Bilateral Psych Psychological: normal affect Supplemental Info Supplemental Information Echocardiogram 03/31/2021: Interpretation Summary Normal LV size. Left ventricular systolic function is normal. The estimated ejection fraction is 60 %. Mild to moderately dilated aortic root. The left atrium is mildly enlarged. Stress test 04/16/2021: Pharmacologic myocardial perfusion stress test. 75-year-old man with a history of new onset atrial fibrillation. Stress protocol: Resting EKG demonstrates atrial fibrillation with a rate of 79 bpm normal intervals are noted resting blood pressure is 142/92 mmHg.? 0.4 mg of regadenoson was infused per usual protocol followed by rapid intravenous saline flush injection continuous EKG monitoring was performed.? The maximum heart rate attained was 103 bpm which was 72% of maximum predicted heart rate the maximum workload was 1 metabolic equivalent.? Nonspecific ST changes were noted with noted notion of ischemia.? The peak blood pressure is 142/92 mmHg. Myocardial perfusion protocol. 14.6 mCi of technetium 99m sestamibi was injected at rest.? 0.4 mg of regadenoson was infused per usual protocol.? At peak infusion 44.3 mCi of technetium 99m sestamibi was injected stress images were obtained stress and rest images were reconstructed and compared in the short axis vertical long and horizontal long axis.? Gated images were also obtained. Perfusion SPECT analysis: Review of the stress images demonstrate normal uptake of tracer noted in all areas of the myocardium.? The resting images similarly demonstrate normal uptake of tracer noted in all areas of the myocardium.? No areas of reversibility are noted to suggest ischemia and no previous infarct is noted. Gated SPECT analysis: The gated ejection fraction is 58%. Conclusion: Normal pharmacologic myocardial perfusion stress test. Preserved ejection fraction. Atrial fibrillation noted. Labs: ?? ? No Data to Display Diagnostics: ?? ? Electrocardiogram ? Echocardiogram ? Stress Test NM ? Stress Test ? Chest X-Ray ? Pulmonary: ?? ? No Data to Display Assessment & Plan Assessment/Plan (1) Longstanding persistent atrial fibrillation: PLAN: Patient does continue to have fatigue, feel that his fatigue and decreased exercise tolerance could be related to his atrial fibrillation. He has been on amiodarone for at least one month since his first DCCV was unsuccessful, agreeable to proceed with a second DCCV. Patient will undergo cardioversion as scheduled. He will continue amiodarone 200mg daily, apixaban 5mg twice daily, and metoprolol 25mg twice daily. Depending on the results of the cardioversion, further recommendations will be made.
[2022-05-26 08:04] VITALS: BMI 31.5
--- NOTE | 2022-05-27 13:01 | PCM.OP.BLANK ---
Operative Report Date of Procedure: 05/27/22 DC cardioversion. 76-year-old man with a history of persistent atrial fibrillation who has been therapeutically anticoagulated. The patient presents for the procedure in the postabsorptive nonsedated state. The patient was seen by Dr. Whittington of the critical care division. Informed consent was obtained. The patient was administered 40 mg of intravenous propofol anterior-posterior pads were applied. 200 J of biphasic DC cardioversion energy were applied with prompt reversal to sinus rhythm. Patient tolerated the procedure well. Conclusion: Successful DC cardioversion from atrial fibrillation to sinus rhythm. Follow-up as per office protocol.
--- NOTE | 2022-05-27 13:03 | PCM.OP.PRO ---
Procedure Report Date of Procedure: 05/27/22 CONSCIOUS SEDATION REPORT DATE OF SERVICE: May 27, 2022 BRIEF HISTORY OF PRESENT ILLNESS: The patient is a 76-year-old male who presented to [facility] for an elective outpatient cardioversion due to underlying atrial fibrillation. The patient did undergo a prior cardioversion on May 06, during which time, he required 60 mg of propofol throughout the entire procedure. The patient denied any prior anesthetic complications. He is systemically anticoagulated on Eliquis. His last surface echocardiogram demonstrated an ejection fraction of 60%. PHYSICAL EXAMINATION: VITAL SIGNS: Reviewed and were acceptable. GENERAL: The patient is a male, in no apparent distress, speaking in full sentences. HEENT: Normocephalic, atraumatic. Mucous membranes are moist and pink. Good mouth opening noted. Trachea is midline. MP IV CHEST: S1, S2 irregularly irregular. No murmurs, rubs or gallops were noted. LUNGS: Clear to auscultation bilaterally without appreciable wheezes, rales or rhonchi. ABDOMEN: Soft, nontender, nondistended. Positive bowel sounds. EXTREMITIES: There is no clubbing, cyanosis or edema. ASA Class: II DESCRIPTION OF PROCEDURE: After confirmation of informed consent, the patient's anesthesia plan was reviewed in detail. Propofol was chosen. Risks and benefits were reviewed and the patient agreed to proceed. At 1249, the patient was given 40 mg of propofol. The patient achieved an appropriate level of sedation and was given a 200 joule synchronized cardioversion by Dr. Dodd at the bedside. This was successful in achieving normal sinus rhythm. The patient was monitored until 1302, at which time he reached his baseline mental status and function. The patient tolerated the procedure well. COMPLICATIONS: None ESTIMATED BLOOD LOSS: None RECOMMENDATIONS: Okay to recover in usual fashion. Procedures Pulmonary 9xxxx: [id number] Con Sedation
== END 2022-05-27 23:59 | disposition home or self-care (01) ==
LOC: CLSP 10:26
PROVIDERS: PCP Family Medicine; Visit Provider Internal Medicine Cardiovascular Disease
DX: I48.11 Longstanding persistent atrial fibrillation (principal); Z87.891 Personal history of nicotine dependence; F10.10 Alcohol abuse, uncomplicated; I10 Essential (primary) hypertension; E78.5 Hyperlipidemia, unspecified; Z79.01 Long term (current) use of 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; Z79.899 Other long term (current) drug therapy; N40.0 Benign prostatic hyperplasia without lower urinary tract symptoms; E66.9 Obesity, unspecified
CPT/HCPCS: 92960; 93005; J7040

== ENCOUNTER → 2022-08-27 | Outpatient (CLI) | payer MEDICARE, OTHER, SELFPAY ==
[2022-08-27 18:35] LABS: T4 Free Direct 1.33 ng/dL (0.76-1.46); Thyroid Stim Hormone (TSH) 1.39 uIU/mL (0.358-3.74)
== END | disposition home or self-care (01) ==
LOC: BFHLAB 16:22
PROVIDERS: PCP Family Medicine; Visit Provider Family Medicine
DX: Z79.899 Other long term (current) drug therapy (principal); E55.9 Vitamin D deficiency, unspecified; R53.83 Other fatigue
CPT/HCPCS: 36415; 84439; 84443

== ENCOUNTER → 2023-02-02 | Outpatient (CLI) | payer MEDICARE, OTHER, SELFPAY ==
[2023-02-02 13:43] LABS: Hematocrit 43.2 % (40-54); Hemoglobin 14.7 g/dL (13.0-16.5); Mean Corpuscular Hgb 33.3 pg (27.0-32.0); Mean Platelet Vol. 10.7 fl (6.2-12.0); Platelet Count 224 K/mm3 (150-450); RBC Distribution Width CV 14.6 % (11.6-14.6); Red Blood Count 4.41 M/mm3 (4.6-6.2); White Blood Count 11.3 K/mm3 (4.4-11.0)
[2023-02-02 14:02] LABS: Anion Gap 5 (5-15); BUN 15 mg/dL (7-18); BUN/Creat Ratio 13.9 RATIO (10-20); Calcium,Total 8.9 mg/dL (8.5-10.1); Chloride 106 mmol/L (98-107); Creatinine, Serum 1.08 mg/dL (0.70-1.30); EST Glomerular Filtration Rate 70 mL/min (>60); Est Glom Filt Rate - Afr Amer 85 mL/min (>60); Glucose 163 mg/dL (74-106); Potassium 4.1 mmol/L (3.5-5.1); Sodium Level 138 mmol/L (136-145)
[2023-02-02 14:03] LABS: BNP,B-Type NATRIURETIC PEPTIDE 115.4 pg/mL (0-100)
== END | disposition home or self-care (01) ==
LOC: LAB 13:02
PROVIDERS: PCP Family Medicine; Referring Provider Internal Medicine Cardiovascular Disease; Visit Provider Internal Medicine Cardiovascular Disease
DX: R60.0 Localized edema (principal); I48.11 Longstanding persistent atrial fibrillation; R06.02 Shortness of breath; Z79.01 Long term (current) use of 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
CPT/HCPCS: 36415; 80048; 83880; 85027

== ENCOUNTER → 2023-02-04 | Outpatient (CLI) | payer MEDICARE, OTHER, SELFPAY ==
--- NOTE | 2023-02-04 08:40 | RAD_ITS ---
STUDY: X-RAY CHEST REASON FOR EXAM: Male, 77 years old. Shortness of breath and productive cough. TECHNIQUE: Frontal and lateral views of the chest. COMPARISON: Chest dated January 2022. FINDINGS: Cardiomegaly with aortic tortuosity and calcification unchanged. Hyperinflation with new patchy opacities randomly distributed in both lung ivey, most marked in the left upper lobe peripherally. Findings compatible with early/developing pneumonia. Follow-up chest imaging to resolution recommended. No abnormality of the visualized soft tissue structures of the upper abdomen. RAD/Chest PA and Lateral IMPRESSION: Cardiomegaly, hyperinflation and patchy opacities in both lung ivey compatible with early/developing pneumonia. Follow-up chest imaging to resolution recommended. Electronically Signed: Aj Christian MD at 9:50 EDT ,
== END | disposition home or self-care (01) ==
LOC: RAD 08:28
PROVIDERS: PCP Family Medicine; Referring Provider Internal Medicine Cardiovascular Disease; Visit Provider Internal Medicine Cardiovascular Disease
DX: R06.02 Shortness of breath (principal); R05.8 Other specified cough; D72.829 Elevated white blood cell count, unspecified
CPT/HCPCS: 71046

== ENCOUNTER → 2023-02-23 | Outpatient (CLI) | payer MEDICARE, OTHER, SELFPAY ==
--- NOTE | 2023-02-23 15:45 | RAD_ITS ---
EXAM: XR CHEST, 2 VIEWS CLINICAL INDICATION: PNEUMONIA TECHNIQUE: Frontal and lateral views of the chest. COMPARISON: XR Chest dated 02/04/2023, XR Chest dated 01/30/2022 FINDINGS: LUNGS AND PLEURAL SPACES: No pneumothorax. No effusion. No significant interval change in the airspace opacification within the left upper lobe and the peribronchial infiltrates noted throughout the right lung. HEART: Heart is normal size. MEDIASTINUM: No mediastinal or hilar mass. BONES/JOINTS: No acute abnormality. RAD/Chest PA and Lateral IMPRESSION: Stable bilateral pulmonary densities consistent with pneumonia. Normal heart size. Electronically Signed: Jonathan Harp MD at 16:30 EDT ,
== END | disposition home or self-care (01) ==
LOC: RAD 15:44
PROVIDERS: PCP Family Medicine; Referring Provider Family Medicine; Visit Provider Family Medicine
DX: J18.9 Pneumonia, unspecified organism (principal)
CPT/HCPCS: 71046

== ENCOUNTER → 2023-06-24 | Outpatient (CLI) | payer MEDICARE, OTHER, SELFPAY ==
--- NOTE | 2023-06-24 14:01 | RAD_ITS ---
EXAM: XR CHEST, 2 VIEWS CLINICAL INDICATION: SOB TECHNIQUE: Frontal and lateral views of the chest. COMPARISON: XR Chest dated 02/23/2023 FINDINGS: LUNGS AND PLEURAL SPACES: Bibasilar pulmonary densities which may represent pneumonia and/or atelectasis. Resolving left upper lobe infiltrate. HEART: Normal heart size. MEDIASTINUM: No mediastinal or hilar mass. BONES/JOINTS: No acute abnormality. RAD/Chest PA and Lateral IMPRESSION: Bibasilar pneumonia/atelectasis. Electronically Signed: Jonathan Harp MD at 15:01 EST ,
--- OUTSIDE RECORDS SUMMARY | 2023-06-24 14:21 | XMS RPT_ITS | CCD ---
Author Name Unknown Address [address] [place] [address] Organization [facility] Care Team Providers Care Resume Writer Name Role Phone Olga Spears Unavailable Erin Mccracken Unavailable Unavailable Anika Umana Unavailable Unavailable Unavailable Unavailable Medications Completed/Discontinued Medications Medication Drug Class(es) Dates Sig (Normalized) Sig (Original) 200 actuat albuterol 0.09 mg/actuat metered dose inhaler (2 sources) beta2-Adrenergic Agonist Start: 07-02-2008 End: 01-04-2009 PROVENTIL HFA, 108 (90 Base)MCG/ACT (Inhalation Aerosol Solution) 2 (two) Aerosol Soln TID for 0 days Quantity: 1 {Aerosol_Soln} Refills: 0 Ordered: 02-Jul-2008 EMILY Payne Start : 02-Jul-2008 End : 04-Jan-2009 Inactive Comments: THAI Problems Active Problems Problem Classification Problem Date Documented Date Episodic/Chronic Chronic obstructive pulmonary disease and bronchiectasis (12 sources) Chronic obstructive lung disease; Translations: [Chronic obstructive pulmonary disease] 05-20-2015 Chronic Chronic obstructive pulmonary disease and bronchiectasis (2 sources) Chronic obstructive pulmonary disease and bronchiectasis Conditions associated with dizziness or vertigo (3 sources) Dizziness; Translations: [Dizziness and giddiness] Resolved: 02-18-2009 05-13-2015 Episodic Past or Other Problems Problem Classification Problem Date Documented Da te Episodic/Chronic Chronic obstructive pulmonary disease and bronchiectasis (1 source) Bronchitis; Translations: [Bronchitis] Resolved: 11-15-2008 04-02-2015 Episodic Conditions associated with dizziness or vertigo (2 sources) Conditions associated with dizziness or vertigo Other inflammatory condition of skin (1 source) Unspecified pruritic disorder; Translations: [PRURITUS OF SKIN, NOS] Resolved: 10-25-2009 07-18-2014 Episodic Results Test Name Value Interpretation Reference Range Facil ity Vital Signs Date Time Vital Sign Value Performing Clinician Facility 05-20-2015 [id number] BMI (Body Mass Index) 32.34 kg/m2 Olga Spears [facility] Work Phone: 05-20-2015 10:55-0500 Body Temperature 97.6 [degF] [facility] Work Phone: Encounters Encounter Date Encounter Type Care Provider Facility Start: 05-20-2015 End: 05-20-2015 Office outpatient visit 25 minutes [facility] Start: 01-18-2015 End: 01-26-2015 Office outpatient visit 5 minutes [facility] Start: 01-16-2015 End: 01-16-2015 Office outpatient visit 25 minutes [facility] Start: 07-18-2014 End: 07-18-2014 Office outpatient visit 25 minutes [facility] Start: 04-13-2013 End: 04-13-2013 Phone Encounter [facility] Start: 04-12-2013 End: 04-12-2013 Phone Encounter [facility] Start: 04-07-2013 End: 04-07-2013 Patient encounter procedure [facility] Start: 10-04-2012 End: 10-04-2012 Patient encounter procedure [facility] Start: 02-05-2012 End: 02-05-2012 Patient encounter procedure [facility] Start: 06-12-2011 End: 06-12-2011 Patient encounter procedure [facility] Start: 06-01-2011 End: 06-01-2011 Annotation/Addendum [facility] Start: 06-01-2011 End: 06-01-2011 Office outpatient visit 15 minutes [facility] Start: 10-27-2010 End: 10-27-2010 Patient encounter procedure [facility] Start: 08-28-2010 End: 08-28-2010 Patient encounter procedure Olga Spears [facility] Start: 04-25-2010 End: 04-25-2010 Patient encounter procedure Olga Spears [facility] Start: 01-10-2010 End: 01-10-2010 Patient encounter procedure Olga Spears [facility] Start: 10-25-2009 End: 10-25-2009 Patient encounter procedure Olga Spears [facility] Start: 04-25-2009 End: 04-25-2009 Patient encounter procedure Olga Spears [facility] Start: 03-01-2009 End: 03-01-2009 Office outpatient visit 25 minutes Olga Tory [facility] Start: 02-22-2009 End: 02-22-2009 Office outpatient visit 10 minutes Olgaannette Spears [facility] Start: 02-18-2009 End: 02-18-2009 Office outpatient visit 25 minutes Olgadave Spears [facility] Start: 01-21-2009 End: 01-21-2009 Historical Summary Olga Tory [facility] Start: 01-21-2009 End: 01-21-2009 Office outpatient visit 15 minutes Olga Tory [facility] Start: 01-04-2009 End: 01-07-2009 Patient encounter procedure Olga Spears [facility] Start: 07-02-2008 End: 07-02-2008 Patient encounter procedure Olga Spears [facility] Start: 09-23-2007 End: 09-23-2007 Office outpatient visit 25 minutes Olga Tory [facility] Start: 09-05-2007 End: 09-05-2007 Patient encounter procedure Olgaannette Spears [facility] Start: 04-12-2007 End: 04-12-2007 Historical Summary Olga Spears [facility] Start: 11-29-2006 End: 11-29-2006 Office outpatient visit 10 minutes Olga Tory [facility] Start: 11-25-2006 End: 11-25-2006 Historical Summary Olga Spears [facility] Start: 10-29-2006 End: 10-31-2006 Office outpatient visit 25 minutes Olga Spears [facility] Start: 04-23-2006 End: 04-23-2006 Office outpatient visit 25 minutes Olga Tory [facility] Start: 03-23-2006 End: 03-23-2006 Historical Summary Olga Spears [facility] Procedures Date Procedure Procedure Detail Performing Clinician Start: 12-17-2017 End: 12-18-2017 Kidney and Bladder Comments: See Note; NOTES: [facility] Imaging Services [address] [place] [address] Kidney and Bladder MR#: [id number] Acct: [id number] Name: ANJUM GILBERT Rep #: [id number] : 1945 M 72 From: Roni Hackett DO PCP: Olga Spears DO Status: REG CLI Study: Kidney and Bladder Date of Exam: 12/17/17 Exam# [id number] Ordering Dr: Grecia Swain [employer]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 Chronic urinary retention TECHNIQUE: Ultrasound evaluation of the kidneys was performed with real-time and static aguilera-scale imaging. COMPARISON: None. FINDINGS: RIGHT KIDNEY: Normal location of the right kidney, which is normal in size. The right kidney measures 12.4 x 6 x 7.1 cm. There is a normal cortex of the right kidney. The renal cortex measures 1.6 cm. There is no right renal mass or cyst. There are no right renal calculi. There is an extra-renal pelvis of the right kidney. There is no distention of the renal calyces. DISTAL RIGHT URETER: There is non-visualization of the distal right ureter. There is no demonstrated right ureterovesical junction calculus. There is a visualized right ureteral jet. LEFT KIDNEY: Normal location of the left kidney, which is normal in size. The left kidney measures 12.9 x 4.8 x 7.2 cm. There is a normal cortex of the left kidney. The renal cortex measures 2 cm. There are 2 cysts within the left kidney, the largest measuring 2.2 cm. There are no left renal calculi. There is no left hydronephrosis. DISTAL LEFT URETER: There is non-visualization of the distal left ureter. There is no demonstrated left ureterovesical junction calculus. There is a visualized left ureteral jet. AORTA: Not imaged. I.V.C.: Not imaged. BLADDER: The distended urinary bladder has a volume of 638 ml. The empty urinary bladder has a volume of 430 ml. The bladder wall is thickened. There is no demonstrated mass within the urinary bladder. There is some internal debris within the bladder which may represent stasis or inflammatory cells. The prostate volume is measured at 58 mL. US/Kidney and Bladder IMPRESSION: Small left renal cyst. Bladder distention with a large postvoid residual. Electronically Signed: Roni Hackett DO at 10:08 EDT Tel , Service support , CC: Olga Spears DO; Grecia Swain NP Creative Strategist: Signed Olga Spears Work Phone: Start: 08-31-2015 End: 08-31-2015 Operative Report Comments: See Note; NOTES: [facility] Medical Records Department [address] [place] [id number] Operative Report MR#: [id number] Acct: [id number] Name: ANJUM GILBERT Rep #: [id number] : 1945 70 From: Almas Villegas MD PCP: Olga Spears DO Status: REG [facility] DATE OF SERVICE: 08/30/2015 DATE OF SERVICE: August 30, 2015 PREOPERATIVE DIAGNOSES: Benign prostatic hypertrophy with outlet obstruction, urinary retention. POSTOPERATIVE DIAGNOSES: Benign prostatic hypertrophy with obstruction, urinary retention. PROCEDURES: Cystoscopy, transurethral resection of prostate. INDICATIONS: A 70-year-old male who has had prior TUR of the prostate, was known to have an atonic bladder. He has recently developed obstruction, retention again and cystoscopy showed significant obstruction. He is known to have somewhat of atonic bladder. DESCRIPTION OF PROCEDURE: The patient was taken to the operating room. He was placed under general anesthesia per LMA by Dr. Aquino and Margo Delaney. He was placed in lithotomy position. He had been prepped and draped in sterile technique. Scuds were in place and had been preloaded with antibiotics. Catheter was removed prior to prep and at this point, cystoscopy showed a normal urethra, significant obstructing prostatic tissue towards the apex as well as moderate vesical neck contracture and after examining the bladder with a 12 and 70-degree lens, finding no other significant pathology. As noted above, the urethra was filled with water-soluble lubricant, dilated to 28 Tajik and then a 26-Tajik resectoscopic sheath was inserted. Then, using the Olympus bipolar method with a loop, transurethral resection of all the obstructing adenomatous tissue was removed, switched over to the button for hemostasis and further electrovaporization of any residual obstructive tissue as well as opening up the vesical neck contracture. This was mostly incised at 6 o'clock as well as the edges, but at this point, all the chips were cleared from the bladder. Hemostasis was obtained. The patient had a wide open stream by Crede maneuver and then a 22 three-way Fitzpatrick catheter was placed to drainage. The patient was then taken to recovery in stable condition. Almas Villegas MD T: NTS JOB: [id number] 08/31/15 1155 <Electronically signed by Almas Villegas MD> Date Almas Villegas MD Cosigner Signature (If Indicated): Date CC: Olga Spears DO; Almas Villegas MD Date Dictated: 08/30/151325 Date Transcribed: 08/30/151325 Creative Strategist: Signed Olga Spears Start: 08-31-2015 End: 08-31-2015 Discharge Instruction Comments: See Note; NOTES: [facility] Medical Records Department [address] [place] [address] Instructions for Home/Discharge Instructions 08/31/15 1150 MR#: [id number] Acct: [id number] Name: ANJUM GILBERT Rep #: [id number] : 1945 70 From: Almas Villegas MD PCP: Olga Spears DO Status: REG [facility] Discharge Diet: No Restrictions - ENCOURAGE FLUIDS Discharge Activity: May Not Drive - FOR A FEW DAYS, May Shower, - - NO STRAINING, LIFTING ETC FOR 2 WEEKS Call your doctor if you observe: Fever of 101 or Higher, Inability to urinate, Uncontrolled pain Allergies/Adverse Reactions: Allergies atorvastatin calcium [From Lipitor] Allergy (Verified 08/30/15 20:50) muscle aches Medications to take at Discharge Aspirin [Aspirin, Baby] 81 mg PO DAILY@0800 08/23/15 Metoprolol Tartrate [Lopressor (Beta Lm)] 50 mg PO BID 08/23/15 Simvastatin [Zocor] 40 mg PO QHS 08/23/15 Please Follow Up With: Almas Villegas - [phone] When: CALL SOON FOR AN APPT IN ABOUT 2 WKS, NO CHANGES, ADDITIONS TO HOME MEDS 08/31/15 1154 <Electronically signed by Almas Villegas MD> Date Almas Villegas MD CC: Olga Martini Start: 08-26-2015 End: 08-26-2015 12 lead ECG Comments: See Note; NOTES: [facility] Cardiovascular Services [address] [place] [address] EKG - [facility] 08/23/15 1425 MR#: [id number] Acct: [id number] Name: ANJUM GILBERT Rep #: [id number] : 1945 70 From: Almas Pierce MD Attending Dr: Almas Villegas MD Status: PRE [facility] Ordering Dr: Almas Villegas MD Date: 08/23/15 Location: [facility] Sex: M C Admitted: Test Reason : Blood Pressure : / mmHG Vent. Rate : 058 BPM Atrial Rate : 058 BPM P-R Int : 192 ms QRS Dur : 098 ms QT Int : 408 ms P-R-T Axes : 045 066 062 degrees QTc Int : 400 ms Sinus bradycardia Otherwise normal ECG Confirmed by ALMAS PIERCE MD ([id number]), editor school photograph GIDEON MESA ([id number]) on 08/26/2015 1:30:14 PM Referred By: RODOLFO VILLEGAS Confirmed By:ALMAS PIERCE MD 08/26/15 5972 Date Almas Pierce MD CC: Olga Tory DO; Almsa Pierce MD Date Dictated: 08/23/15 1425 Date Transcribed: 08/23/151424 Creative Strategist: Signed Olga Perezon Work Phone: Start: 01-16-2015 End: 01-16-2015 Spmtry w/vc expiratory keira w/wo mxml vol vntj _ Olga Spears Work Phone: Plan of Treatment Date Care Activity Detail Author Start: 05-20-2015 Patient Education Flu (Influenza) *: flu shot [facility] Work Phone: Start: 05-20-2015 Provider Instructions for Treatment [facility] Work Phone: Start: 05-20-2015 Assay of prostate specific antigen total PSA (PROSTATE SPECIFIC ANTIGEN) (V76.44) [facility] Work Phone: Start: 05-20-2015 Lipid panel LIPID PANEL (37422) [facility] Work Phone: Start: 05-20-2015 TSH Qn TSH (41096) [facility] Work Phone: Start: 05-20-2015 Urnls dip stick/tablet reagent auto microscopy URINALYSIS, W/ MICRO (37988) [facility] Work Phone: Start: 05-20-2015 Urine albumin quantitative MICROALBUMIN: CREATININE RATIO (86194) AND (12546) [facility] Work Phone: Start: 05-20-2015 Comprehensive metabolic panel METABOLIC PANEL, COMPREHENSIVE (88171) [facility] Work Phone: Start: 05-20-2015 Blood count complete auto&auto difrntl wbc CBC W/AUTO DIFF WBC (14760) [facility] Work Phone: Start: 01-26-2015 Provider Instructions for Treatment *Colon Cancer Screening [facility] Work Phone: Start: 01-16-2015 TSH Qn TSH (54534) [facility] Work Phone: Start: 01-16-2015 Urnls dip stick/tablet reagent auto microscopy URINALYSIS, W/ MICRO (10340) [facility] Work Phone: Start: 01-16-2015 Urine albumin quantitative MICROALBUMIN: CREATININE RATIO (12333) AND (90456) [facility] Work Phone: Start: 01-16-2015 Comprehensive metabolic panel METABOLIC PANEL, COMPREHENSIVE (34620) [facility] Work Phone: Start: 01-16-2015 Lipid panel LIPID PANEL (00943) [facility] Work Phone: Start: 01-16-2015 Blood count complete auto&auto difrntl wbc CBC W/AUTO DIFF WBC (22400) [facility] Work Phone: Start: 01-16-2015 Patient Education Chronic Obstructive Pulmonary Disease (COPD) *: chronic obstructive pulmonary disease [facility] Work Phone: Start: 01-16-2015 Procedure Education Eprescribed prescriptions (G8553) [facility] Work Phone: Start: 01-16-2015 Provider Instructions for Treatment [facility] Work Phone: Start: 07-18-2014 Provider Instructions for Treatment [facility] Work Phone: Start: 07-18-2014 TSH Qn TSH (65109) [facility] Work Phone: Start: 07-18-2014 Urnls dip stick/tablet reagent auto microscopy URINALYSIS, W/ MICRO (48284) [facility] Work Phone: Start: 07-18-2014 Urine albumin quantitative MICROALBUMIN: CREATININE RATIO (26753) AND (69675) [facility] Work Phone: Start: 07-18-2014 Comprehensive metabolic panel METABOLIC PANEL, COMPREHENSIVE (48116) [facility] Work Phone: Start: 07-18-2014 Lipid panel LIPID PANEL (72248) [facility] Work Phone: Start: 07-18-2014 Blood count complete auto&auto difrntl wbc CBC W/AUTO DIFF WBC (77816) [facility] Work Phone: Start: 07-18-2014 Blood occult fecal hgb deter ia qual feces 1-3 FECAL OCCULT- Tubes sent home (37007) [facility] Work Phone: Start: 07-18-2014 Assay of prostate specific antigen total PSA (PROSTATE SPECIFIC ANTIGEN) (V76.44) [facility] Work Phone: Start: 04-13-2013 PSA TOTAL +%FREE 009701 (52243) PSA TOTAL +%FREE 136274 (25858) [facility] Work Phone: Start: 04-12-2013 Lipid panel Lipid Panel (29759) [facility] Work Phone: Start: 04-07-2013 Patient Education Flu (Influenza) *: flu shot [facility] Work Phone: Start: 04-07-2013 Provider Instructions for Treatment [facility] Work Phone: Start: 04-07-2013 Blood occult fecal hgb deter ia qual feces 1-3 FECAL OCCULT- Tubes sent home (26539) [facility] Work Phone: Start: 10-04-2012 Patient Education Blood Pressure: high blood pressure [facility] Work Phone: Start: 10-04-2012 Provider Instructions for Treatment [facility] Work Phone: Start: 02-05-2012 Provider Instructions for Treatment [facility] Work Phone: Start: 06-12-2011 Provider Instructions for Treatment [facility] Work Phone: Start: 06-12-2011 Assay of prostate specific antigen total PSA (PROSTATE SPECIFIC ANTIGEN) (V76.44) [facility] Work Phone: Start: 11-06-2010 Hepatic function panel HEPATIC FUNCTION PANEL (75805) [facility] Work Phone: Start: 11-06-2010 Lipid panel LIPID PANEL (11611) [facility] Work Phone: Start: 10-27-2010 Provider Instructions for Treatment *Antibiotic Usage Education - Male [facility] Work Phone: Start: 08-28-2010 Provider Instructions for Treatment [facility] Work Phone: Start: 04-25-2010 Provider Instructions for Treatment [facility] Work Phone: Start: 04-25-2010 Assay of prostate specific antigen total PSA (PROSTATE SPECIFIC ANTIGEN) (V76.44) [facility] Work Phone: Start: 04-25-2010 TSH Qn TSH (61428) [facility] Work Phone: Start: 04-25-2010 Urnls dip stick/tablet reagent auto microscopy URINALYSIS, W/ MICRO (02272) [facility] Work Phone: Start: 04-25-2010 Urine albumin quantitative MICROALBUMIN: CREATININE RATIO (11304) AND (40418) [facility] Work Phone: Start: 04-25-2010 Comprehensive metabolic panel METABOLIC PANEL, COMPREHENSIVE (81554) [facility] Work Phone: Start: 04-25-2010 Blood count manual cell count each CBC WITH MANUAL DIFF (66440) [facility] Work Phone: Start: 04-25-2010 Lipid panel LIPID PANEL (35412) [facility] Work Phone: Start: 01-10-2010 Provider Instructions for Treatment [facility] Work Phone: Start: 01-10-2010 Lipid panel LIPID PANEL (44878) [facility] Work Phone: Immunizations Immunization Date Immunization Notes Care Provider Benito kaur 03-01-2009 influenza, seasonal, injectable Olga Perezon [facility] Work Phone: Payers Date Payer Category Payer Policy ID Unknown Social History Date Type Detail Facility Alcohol Use Alcohol Use [facility] Work Phone: Instructions Name Dates Details How to access health informa tion online Indication:Need for prophylactic vaccination and inoculation against influenza Start:20-May-2015 Instruction Type:Patient Education How to access health informa tion online - Detail Indication:Need for prophylactic vaccination and inoculation against influenza Start:20-May-2015 Instruction Type:Patient Education Patient Instructions Indication:Need for prophylactic vaccination and inoculation against influenza Start:20-May-2015 Instruction Type:Provider Instructions for Treatment How to access health informa tion online Indication:Chronic obstructive pulmonary disease Start:16-Jan-2015 Instruction Type:Patient Education How to access health informa tion online - Detail Indication:Chronic obstructive pulmonary disease Start:16-Jan-2015 Instruction Type:Patient Education Patient Instructions Indication:Chronic obstructive pulmonary disease Start:16-Jan-2015 Instruction Type:Provider Instructions for Treatment obesity counseling Indication:BMI 33.0-33.9,adult Start:18-Jul-2014 Instruction Type:Provider Instructions for Treatment obesity counseling Indication:BMI 32.0-32.9,adult Start:07-Apr-2013 Instruction Type:Provider Instructions for Treatment Patient Instructions Indication:Benign essential hypertension Start:04-Oct-2012 Instruction Type:Provider Instructions for Treatment Summary Purpose Family History No Family History Records Found Advance Directives No Advanced Directives Records FoundNo Advanced Directives Records Found Additional Source Comments (unrecognized sect ion and content) No Status Records FoundNo Status Records Found INFORMATION SOURCE (unrecogn ized section and content) DATE CREATED AUTHOR AUTHOR'S ORGANIZ ATION 03/31/2020 [facility] FOR RECORDS PERTAINING TO PATIENTS WHO ARE OR HAVE BEEN ENROLLED IN A CHEMICAL DEPENDENCY/SUBSTANCEABUSE PROGRAM, SOME INFORMATION MAY BE OMITTED. This clinical summary was aggregated from multiple sources. Caution should be exercised in using it in the provision of clinical care. This summary normalizes information from multiple sources, and as a consequence, information in this document may materially change the coding, format and clinical context of patient data. In addition, data may be omitted in some cases. CLINICAL DECISIONS SHOULD BE BASED ON THE PRIMARY CLINICAL RECORDS. [facility] [employer] [facility]. provides no warranty or guarantee of the accuracy or completeness of information in this document.
== END | disposition home or self-care (01) ==
LOC: RAD 13:57
PROVIDERS: PCP Family Medicine; Referring Provider Family Medicine; Visit Provider Family Medicine
DX: R06.00 Dyspnea, unspecified (principal)
CPT/HCPCS: 71046

== ENCOUNTER → 2023-06-25 | Outpatient (CLI) | payer MEDICARE, OTHER, SELFPAY ==
--- OUTSIDE RECORDS SUMMARY | 2023-06-25 10:56 | XMS RPT_ITS | CCD ---
Author Name Unknown Address [address] [place] [address] Organization [facility] Care Team Providers Care Pullman Clerk Name Role Phone Olga Spears Unavailable Erin [...] 04-13-2013 End: 04-13-2013 Phone Encounter Olga Roberts [facility] Start: 04-12-2013 End: 04-12-2013 Phone Encounter Olga Roberts [facility] Start: 04-07-2013 End: 04-07-2013 Patient encounter procedure Ol[facility] Start: 10-04-2012 End: 10-04-2012 Patient encounter procedure Olga Roberts [facility] Start: 02-05-2012 End: 02-05-2012 Patient encounter procedure Olga Roberts [facility] Start: 06-12-2011 End: 06-12-2011 Patient encounter procedure Olga Roberts [facility] Start: 06-01-2011 End: 06-01-2011 Annotation/Addendum Olga Roberts [facility] Start: 06-01-2011 End: 06-01-2011 Office outpatient visit 15 minutes Olga Roberts [facility] Start: 10-27-2010 End: 10-27-2010 Patient encounter procedure Olga Roberts [facility] Start: 08-28-2010 End: 08-28-2010 Patient encounter procedure Olga Spears [facility] Start: 04-25-2010 End: 04-25-2010 Patient encounter procedure Olga Spears [facility] Start: 01-10-2010 End: 01-10-2010 Patient encounter procedure Olga Spears [facility] Start: 10-25-2009 End: 10-25-2009 Patient encounter procedure Olga Spears [facility] Start: 04-25-2009 End: 04-25-2009 Patient encounter procedure Olga Spears [facility] Start: 03-01-2009 End: 03-01-2009 Office outpatient visit 25 minutes Olga Tory [facility] Start: 02-22-2009 End: 02-22-2009 Office outpatient visit 10 minutes Olgaannette Spears [facility] Start: 02-18-2009 End: 02-18-2009 Office outpatient visit 25 minutes Olgadave Spears [facility] Start: 01-21-2009 End: 01-21-2009 Historical Summary Olga Tory [facility] Start: 01-21-2009 End: 01-21-2009 Office outpatient visit 15 minutes Olga Tory [facility] Start: 01-04-2009 End: 01-07-2009 Patient encounter procedure Olga Spears [facility] Start: 07-02-2008 End: 07-02-2008 Patient encounter procedure Olga Spears [facility] Start: 09-23-2007 End: 09-23-2007 Office outpatient visit 25 minutes Olga Tory [facility] Start: 09-05-2007 End: 09-05-2007 Patient encounter procedure Olgaannette pSears [facility] Start: 04-12-2007 End: 04-12-2007 Historical Summary Olga Spears [facility] Start: 11-29-2006 End: 11-29-2006 Office outpatient visit 10 minutes Olga Tory [facility] Start: 11-25-2006 End: 11-25-2006 Historical Summary Olga Spears [facility] Start: 10-29-2006 End: 10-31-2006 Office outpatient visit 25 minutes Olga Spears [facility] Start: 04-23-2006 End: 04-23-2006 Office outpatient visit 25 minutes Olga Tory [facility] Start: 03-23-2006 End: 03-23-2006 Historical Summary Olga Spears [facility] Procedures Date Procedure Procedure Detail Performing Clinician Start: 12-17-2017 End: 12-18-2017 Kidney and Bladder Comments: See Note; NOTES: [facility] Imaging Services [address] [place] [address] Kidney and Bladder MR#: [id number] Acct: [id number] Name: ANJUM GILBERT Rep #: [id number] : 1945 M 72 From: Roni Hackett DO PCP: Olga Spears DO Status: REG CLI Study: Kidney and Bladder Date of Exam: 12/17/17 Exam# [id number] Ordering Dr: Grecia Swain [employer]O REFINISHER-C STUDY: RENAL ULTRASOUND - COMPLETE REASON FOR [...] CC: Olga Spears DO; Grecia Swain NP Detention Sergeant: Signed Olga Spears Work Phone: Start: 08-31-2015 End: 08-31-2015 Operative Report Comments: See Note; NOTES: [facility] Medical Records Department [address] [place] [id number] Operative Report MR#: [id number] Acct: [id number] Name: ANJUM GILBERT Rep #: [id number] : 1945 70 From: Almas Villegas MD PCP: Olga Spears DO Status: REG [facility] DATE OF SERVICE: 08/30/2015 DATE OF SERVICE: [...] filled with water-soluble lubricant, dilated to 28 Khmer and then a 26-Khmer resectoscopic sheath was inserted. Then, using the [...] condition. Almas Villegas MD T: NTS JOB: [id number] 08/31/15 1155 <Electronically signed by Almas Villegas MD> Date Almas Villegas MD Cosigner Signature (If Indicated): Date CC: Olga Spears DO; Almas Villegas MD Date Dictated: 08/30/151325 Date Transcribed: 08/30/151325 Detention Sergeant: Signed Olga Spears Start: 08-31-2015 End: 08-31-2015 Discharge Instruction Comments: See Note; NOTES: [facility] Medical Records Department [address] [place] [address] Instructions for Home/Discharge Instructions 08/31/15 1150 MR#: [id number] Acct: [id number] Name: ANJUM GILEBRT Rep #: [id number] : 1945 70 From: Almas Villegas MD PCP: Olga Spears DO Status: REG [facility] Discharge Diet: No Restrictions - ENCOURAGE FLUIDS [...] Please Follow Up With: Almas Villegas - [phone] When: CALL SOON FOR AN APPT IN ABOUT 2 WKS, NO CHANGES, ADDITIONS TO HOME MEDS 08/31/15 1154 <Electronically signed by Almas Villegas MD> Date Almas Villegas MD CC: Olga aMrtini Start: 08-26-2015 End: 08-26-2015 12 lead ECG Comments: See Note; NOTES: [facility] Cardiovascular Services [address] [place] [address] EKG - [facility] 08/23/15 1425 MR#: [id number] Acct: [id number] Name: ANJUM GILBERT Rep #: [id number] : 1945 70 From: Almas Pierce MD Attending Dr: Almas Villegas MD Status: PRE [facility] Ordering Dr: Almas Villegas MD Date: 08/23/15 Location: [facility] Sex: M C Admitted: Test Reason : Blood Pressure : / mmHG Vent. Rate : 058 BPM Atrial Rate : 058 BPM P-R Int : 192 ms QRS Dur : 098 ms QT Int : 408 ms P-R-T Axes : 045 066 062 degrees QTc Int : 400 ms Sinus bradycardia Otherwise normal ECG Confirmed by ALMAS PIERCE MD ([id number]), pictures editor GIDEON MESA ([id number]) on 08/26/2015 1:30:14 PM Referred By: RODOLFO VILLEGAS Confirmed By:ALMAS PIERCE MD 08/26/15 6899 Date Almas Pierce MD CC: Olga Tory DO; Almas Pierce MD Date Dictated: 08/23/15 1425 Date Transcribed: 08/23/151424 Detention Sergeant: Signed Olga Perezon Work Phone: Start: 01-16-2015 [...] Phone: Start: 05-20-2015 Lipid panel LIPID PANEL (20196) [facility] Work Phone: Start: 05-20-2015 TSH Qn TSH (31203) [facility] Work Phone: Start: 05-20-2015 Urnls dip stick/tablet reagent auto microscopy URINALYSIS, W/ MICRO (04492) [facility] Work Phone: Start: 05-20-2015 Urine albumin quantitative MICROALBUMIN: CREATININE RATIO (82104) AND (69868) [facility] Work Phone: Start: 05-20-2015 Comprehensive metabolic panel METABOLIC PANEL, COMPREHENSIVE (35112) [facility] Work Phone: Start: 05-20-2015 Blood count complete auto&auto difrntl wbc CBC W/AUTO DIFF WBC (79110) [facility] Work Phone: Start: 01-26-2015 Provider Instructions for Treatment *Colon Cancer Screening [facility] Work Phone: Start: 01-16-2015 TSH Qn TSH (49781) [facility] Work Phone: Start: 01-16-2015 Urnls dip stick/tablet reagent auto microscopy URINALYSIS, W/ MICRO (28107) [facility] Work Phone: Start: 01-16-2015 Urine albumin quantitative MICROALBUMIN: CREATININE RATIO (31532) AND (60717) [facility] Work Phone: Start: 01-16-2015 Comprehensive metabolic panel METABOLIC PANEL, COMPREHENSIVE (37812) [facility] Work Phone: Start: 01-16-2015 Lipid panel LIPID PANEL (43281) [facility] Work Phone: Start: 01-16-2015 Blood count complete auto&auto difrntl wbc CBC W/AUTO DIFF WBC (98213) [facility] Work Phone: Start: 01-16-2015 Patient Education Chronic Obstructive Pulmonary Disease (COPD) *: chronic obstructive pulmonary disease [facility] Work Phone: Start: 01-16-2015 Procedure Education Eprescribed prescriptions (G8553) [facility] Work Phone: Start: 01-16-2015 Provider Instructions for Treatment [facility] Work Phone: Start: 07-18-2014 Provider Instructions for Treatment [facility] Work Phone: Start: 07-18-2014 TSH Qn TSH (27522) [facility] Work Phone: Start: 07-18-2014 Urnls dip stick/tablet reagent auto microscopy URINALYSIS, W/ MICRO (36473) [facility] Work Phone: Start: 07-18-2014 Urine albumin quantitative MICROALBUMIN: CREATININE RATIO (06718) AND (73846) [facility] Work Phone: Start: 07-18-2014 Comprehensive metabolic panel METABOLIC PANEL, COMPREHENSIVE (83523) [facility] Work Phone: Start: 07-18-2014 Lipid panel LIPID PANEL (31124) [facility] Work Phone: Start: 07-18-2014 Blood count complete auto&auto difrntl wbc CBC W/AUTO DIFF WBC (45551) [facility] Work Phone: Start: 07-18-2014 Blood occult fecal hgb deter ia qual feces 1-3 FECAL OCCULT- Tubes sent home (12142) [facility] Work Phone: Start: 07-18-2014 Assay of prostate specific antigen total PSA (PROSTATE SPECIFIC ANTIGEN) (V76.44) [facility] Work Phone: Start: 04-13-2013 PSA TOTAL +%FREE 280927 (48137) PSA TOTAL +%FREE 934821 (01653) [facility] Work Phone: Start: 04-12-2013 Lipid panel Lipid Panel (63891) [facility] Work Phone: Start: 04-07-2013 Patient Education Flu (Influenza) *: flu shot [facility] Work Phone: Start: 04-07-2013 Provider Instructions for Treatment [facility] Work Phone: Start: 04-07-2013 Blood occult fecal hgb deter ia qual feces 1-3 FECAL OCCULT- Tubes sent home (51440) [facility] Work Phone: Start: 10-04-2012 [...] 11-06-2010 Hepatic function panel HEPATIC FUNCTION PANEL (50968) [facility] Work Phone: Start: 11-06-2010 Lipid panel LIPID PANEL (84607) [facility] Work Phone: Start: 10-27-2010 Provider [...] Work Phone: Start: 04-25-2010 TSH Qn TSH (30454) [facility] Work Phone: Start: 04-25-2010 Urnls dip stick/tablet reagent auto microscopy URINALYSIS, W/ MICRO (17256) [facility] Work Phone: Start: 04-25-2010 Urine albumin quantitative MICROALBUMIN: CREATININE RATIO (97940) AND (34228) [facility] Work Phone: Start: 04-25-2010 Comprehensive metabolic panel METABOLIC PANEL, COMPREHENSIVE (91276) [facility] Work Phone: Start: 04-25-2010 Blood count manual cell count each CBC WITH MANUAL DIFF (87177) [facility] Work Phone: Start: 04-25-2010 Lipid panel LIPID PANEL (22258) [facility] Work Phone: Start: 01-10-2010 Provider Instructions for Treatment [facility] Work Phone: Start: 01-10-2010 Lipid panel LIPID PANEL (08886) [facility] Work Phone: Immunizations Immunization Date Immunization Notes Care Provider Benito kaur 03-01-2009 influenza, seasonal, injectable Olga Perezon [facility] Work Phone: Payers Date Payer [...] DATE CREATED AUTHOR AUTHOR'S ORGANIZ ATION 03/31/2020 [facility] FOR RECORDS PERTAINING TO PATIENTS WHO ARE [...] BE BASED ON THE PRIMARY CLINICAL RECORDS. [facility] [employer] [facility]. provides no warranty or guarantee of the accuracy or completeness of information in this document.
--- NOTE | 2023-06-27 06:51 | PFT ---
INTRODUCTION: The patient is a 77-year-old male who presents for pulmonary function studies secondary to a diagnosis of dyspnea. Respiratory therapy reported good patient effort. Bronchodilators were used during testing. INTERPRETATION: Forced expiration spirometry demonstrates the presence of a mild large airways obstructive ventilatory defect. There was no significant response to aerosolized bronchodilators. Body plethysmography was performed and revealed a decreased TLC to 6.21 L, 78% of predicted, indicative of a mild restrictive ventilatory impairment. Diffusing capacity by single breath CO was reduced to 41% of predicted. IMPRESSION: Irreversible mild mixed ventilatory defect with disproportionate reduction in diffusing capacity.
== END | disposition home or self-care (01) ==
LOC: PSN 10:31
PROVIDERS: PCP Family Medicine; Referring Provider Family Medicine; Visit Provider Family Medicine
DX: R06.00 Dyspnea, unspecified (principal)
CPT/HCPCS: 94060; 94726; 94729

== ENCOUNTER → 2023-06-29 | Outpatient (CLI) | payer MEDICARE, OTHER, SELFPAY ==
[2023-06-29 12:40] VITALS: PULSE 68; PULSE 77; PULSE 86; PULSE 87; O2SAT 90; O2SAT 91; O2SAT 92; O2SAT 94
--- NOTE | 2023-06-30 05:46 | PCM.PSN.6M ---
PSN 6 Minute Walk Test 6 Minute Walk Test 6 Minute Walk Test: 6 Minute Walk Test PSN:6-Minute Walk Test Start: 06/29/23 12:40 Freq: Status: Active Protocol: RESP.6MINW Document 06/29/23 12:40 [email or web address] (Rec: 06/29/23 12:49 [email or web address] [id number]) 6 Minute Walk Test Date Performed 06/29/23 Time Performed 12:30 Height 6 ft 1 in Weight: 99.79 kg Weight in Pounds 220.[address]: Reema Myers Assistive device used: None Pre-test Oxygen Delivery Method Room Air Pulse Ox 94 Pulse Rate (60-100) 77 Dyspnea Victorino Scale (0-10) 1 Exertion Victorino Scale (6-20) 6 1st minute Oxygen Delivery Method Room Air Pulse Ox 94 Pulse Rate (60-100) 87 2nd minute Oxygen Delivery Method Room Air Pulse Ox 92 Pulse Rate (60-100) 87 3rd minute Oxygen Delivery Method Room Air Pulse Ox 91 Pulse Rate (60-100) 86 4th minute Oxygen Delivery Method Room Air Pulse Ox 90 Pulse Rate (60-100) 86 5th minute Oxygen Delivery Method Room Air Pulse Ox 90 Pulse Rate (60-100) 87 6th minute Oxygen Delivery Method Room Air Pulse Ox 91 Pulse Rate (60-100) 86 Dyspnea Victorino Scale (0-10) 3 Exertion Victorino Scale (6-20) 10 Post-test Oxygen Delivery Method Room Air Pulse Ox 94 Pulse Rate (60-100) 68 Full Laps Walked 15 Partial Lap, Number of Tiles Walked 36 Total Distance Walked (ft) 921 Interpretation Interpretation: The patient was able to ambulate 921 feet over the course of 6 minutes on room air with no assistive devices or breaks. The patient did experience significant desaturation from baseline of 94% to as low as 90%, but no significant tachycardia were noted. These findings are consistent with a respiratory limitation exercise tolerance. Recommendations Recommendations: No supplemental oxygen is indicated at this time. However, patient will need to be followed closely given level of desaturation.
== END | disposition home or self-care (01) ==
LOC: PSN 12:18
PROVIDERS: PCP Family Medicine; Referring Provider Family Medicine; Visit Provider Family Medicine
DX: R06.00 Dyspnea, unspecified (principal)
CPT/HCPCS: 94618

== ENCOUNTER → 2023-07-09 | Outpatient (CLI) | payer MEDICARE, OTHER, SELFPAY ==
--- NOTE | 2023-07-09 12:54 | CT_ITS ---
STUDY: LOW DOSE CT LUNG CANCER SCREENING REASON FOR EXAM: Male, 77 years old. h/o TObacco Dependency. Patient smoke 2 packs per day for 50 years. Increasing shortness of breath. RADIATION DOSAGE (If Supplied By Facility): CTDIvol = ( 3.02 ) mGy, DLP = ( 111.36 ) mGycm TECHNIQUE: No contrast was administered. Low dose technique was utilized (average mAS-38 and kVp 120). 1.25 mm axial source images with a slice interval of 1.25-mm were reconstructed in lung windows. 2.5 mm axial source images with a slice interval of 2.5-mm were reconstructed in lung windows. 5.0 mm axial source images with a slice interval of 5.0-mm were reconstructed in soft tissue windows. COMPARISON: None. NODULES: There is a 1.1 cm x 0.8 cm nodule in the peripheral lateral aspect of the right upper lobe abutting the right minor fissure as seen on axial image #120. Scattered nodular densities also seen at the lung bases. The largest measures 9 mm in the superior aspect of the right lower lobe which abuts the pleural surface. These most likely than scarring. Emphysema: Hyperinflation. Emphysematous changes. Increased interstitial markings more prominent at the lung bases with areas of confluence. There is evidence of honeycombing at the lung bases worse in the right lung base. Endobronchial lesion: None Aorta: Atherosclerotic plaque formation. CORONARY ARTERIES: Coronary artery calcification is seen. Heart: Unremarkable Pulmonary artery: Unremarkable Mediastinal nodes: Small mediastinal lymph nodes. Other chest and abdominal findings: CT/Low Dose CT Lung Screening IMPRESSION: Lung-RADS category 3 - Continue screening with LDCT in 6 months. IMPORTANT NOTES FOR USE: ACR Lung-RADS Version 1.1 Assessment Categories Release Date: 2018 Category: Coded 0-4 bases on nodule(s) with highest degree of suspicion. Negative screen is defined as categories 1 and 2; a positive screen is defined as categories 3 and 4. Category 3 and 4A nodules that are unchanged on interval CT should be coded as category 2, and individuals returned to screening in 12 months. Category 4X: Category 3 or 4 nodules with additional imaging findings that increase the suspicion of lung cancer, such as spiculation, GGN that doubles in size in 1 year, enlarged lymph notes, etc. Category Modifiers: S (significant finding unrelated to lung cancer) Electronically Signed: Brian Duran MD at 13:40 EST ,
== END | disposition home or self-care (01) ==
LOC: CT 12:54
PROVIDERS: PCP Family Medicine; Referring Provider Internal Medicine Critical Care Medicine; Visit Provider Internal Medicine Critical Care Medicine
DX: F17.211 Nicotine dependence, cigarettes, in remission (principal)
CPT/HCPCS: 71271

== ENCOUNTER 2023-08-20 20:01 | Outpatient (CLI) | payer MEDICARE, OTHER, SELFPAY ==
--- OUTSIDE RECORDS SUMMARY | 2023-08-20 20:06 | XMS RPT_ITS | CCD ---
Author Name Unknown Address [address] [place] [address] Organization [facility] Care Team Providers Care Bacteriologist Industrial Name Role Phone Olga Spears Unavailable Erin [...] 04-13-2013 End: 04-13-2013 Phone Encounter Olga Roberts [facility] Start: 04-12-2013 End: 04-12-2013 Phone Encounter Olga Roberts [facility] Start: 04-07-2013 End: 04-07-2013 Patient encounter procedure Olga Roberts [facility] Start: 10-04-2012 End: 10-04-2012 Patient encounter procedure Olga Roberts [facility] Start: 02-05-2012 End: 02-05-2012 Patient encounter procedure Olga Roberts [facility] Start: 06-12-2011 End: 06-12-2011 Patient encounter procedure Olga Roberts [facility] Start: 06-01-2011 End: 06-01-2011 Annotation/Addendum Olga Roberts [facility] Start: 06-01-2011 End: 06-01-2011 Office outpatient visit 15 minutes Olga Roberts [facility] Start: 10-27-2010 End: 10-27-2010 Patient encounter procedure Olga Roberts [facility] Start: 08-28-2010 End: 08-28-2010 Patient encounter procedure Olga Spears [facility] Start: 04-25-2010 End: 04-25-2010 Patient encounter procedure Olga Spears [facility] Start: 01-10-2010 End: 01-10-2010 Patient encounter procedure Olga Spears [facility] Start: 10-25-2009 End: 10-25-2009 Patient encounter procedure Olga Spears [facility] Start: 04-25-2009 End: 04-25-2009 Patient encounter procedure Olga Spears [facility] Start: 03-01-2009 End: 03-01-2009 Office outpatient visit 25 minutes Olga Tory [facility] Start: 02-22-2009 End: 02-22-2009 Office outpatient visit 10 minutes Olgaannette Spears [facility] Start: 02-18-2009 End: 02-18-2009 Office outpatient visit 25 minutes Olgadave Spears [facility] Start: 01-21-2009 End: 01-21-2009 Historical Summary Olga Tory [facility] Start: 01-21-2009 End: 01-21-2009 Office outpatient visit 15 minutes Olga Tory [facility] Start: 01-04-2009 End: 01-07-2009 Patient encounter procedure Olga Spears [facility] Start: 07-02-2008 End: 07-02-2008 Patient encounter procedure Olga Spears [facility] Start: 09-23-2007 End: 09-23-2007 Office outpatient visit 25 minutes Olga Tory [facility] Start: 09-05-2007 End: 09-05-2007 Patient encounter procedure Olgaannette Spears [facility] Start: 04-12-2007 End: 04-12-2007 Historical Summary Olga Spears [facility] Start: 11-29-2006 End: 11-29-2006 Office outpatient visit 10 minutes Olga Tory [facility] Start: 11-25-2006 End: 11-25-2006 Historical Summary Olga Spears [facility] Start: 10-29-2006 End: 10-31-2006 Office outpatient visit 25 minutes Olga Spears [facility] Start: 04-23-2006 End: 04-23-2006 Office outpatient visit 25 minutes Olga Tory [facility] Start: 03-23-2006 End: 03-23-2006 Historical Summary Olga Spears [facility] Procedures Date Procedure Procedure Detail Performing Clinician Start: 12-17-2017 End: 12-18-2017 Kidney and Bladder Comments: See Note; NOTES: [facility] Imaging Services [address] [place] [address] Kidney and Bladder MR#: [id number] Acct: [id number] Name: ANJUM GILBERT Rep #: [id number] : 1945 M 72 From: Roni Hackett DO PCP: Olga Spears DO Status: REG CLI Study: Kidney and Bladder Date of Exam: 12/17/17 Exam# [id number] Ordering Dr: Grecia Swain ACCOUNT CLERK-C STUDY: RENAL ULTRASOUND - COMPLETE REASON FOR [...] CC: Olga Spears DO; Grecia Swain NP [employer] Machine Operator: Signed Olga Spears Work Phone: Start: 08-31-2015 End: 08-31-2015 Operative Report Comments: See Note; NOTES: [facility] Medical Records Department [address] [place] [id number] Operative Report MR#: [id number] Acct: [id number] Name: ANJUM GILBERT Rep #: [id number] : 1945 70 From: Almas Villegas MD PCP: Olga Spears DO Status: [place] [facility] [place] OF SERVICE: 08/30/2015 DATE OF SERVICE: [...] filled with water-soluble lubricant, dilated to 28 Korean and then a 26-Korean resectoscopic sheath was inserted. Then, using the [...] condition. Almas Villegas MD T: NTS JOB: [id number] 08/31/15 1155 <Electronically signed by Almas Villegas MD> Date Almas Villegas MD Cosigner Signature (If Indicated): Date CC: Olga Spears DO; Almas Villegas MD Date Dictated: 08/30/151325 Date Transcribed: 08/30/151325 Bearing Press Machine Operator: Signed Olga Spears Start: 08-31-2015 End: 08-31-2015 Discharge Instruction Comments: See Note; NOTES: [facility] Medical Records Department [address] [place] [address] Instructions for Home/Discharge Instructions 08/31/15 1150 MR#: [id number] Acct: [id number] Name: ANJUM GILBERT Rep #: [id number] : 1945 70 From: Almas Villegas MD PCP: Olga Spears DO Status: [place] [facility] [place] Diet: No Restrictions - ENCOURAGE FLUIDS [...] Please Follow Up With: Almas Villegas - [phone] When: CALL SOON FOR AN APPT IN ABOUT 2 WKS, NO CHANGES, ADDITIONS TO HOME MEDS 08/31/15 1154 <Electronically signed by Almas Villegas MD> Date Almas Villegas MD CC: Olga Martini Start: 08-26-2015 End: 08-26-2015 12 lead ECG Comments: See Note; NOTES: [facility] Cardiovascular Services [address] [place] [address] [place] [facility] 08/23/15 1425 MR#: [id number] Acct: [id number] Name: ANJUM GILBERT Rep #: [id number] : 1945 70 From: Almas Pierce MD Attending Dr: Almas Villegas MD Status: PRE [facility] [place]: Almas Villegas MD Date: 08/23/15 [place] [facility] Sex: M C Admitted: Test Reason : Blood Pressure : / mmHG Vent. Rate : 058 BPM Atrial Rate : 058 BPM P-R Int : 192 ms QRS Dur : 098 ms QT Int : 408 ms P-R-T Axes : 045 066 062 degrees QTc Int : 400 ms Sinus bradycardia Otherwise normal ECG Confirmed by ALMAS PIERCE MD ([id number]), tape editor GIEDON MESA ([id number]) on 08/26/2015 1:30:14 PM Referred By: RODOLFO VILLEGAS Confirmed By:ALMAS PIERCE MD 08/26/15 6404 Date Almas Pierce MD CC: Olga Tory DO; Almas Pierce MD Date Dictated: 08/23/15 1425 Date Transcribed: 08/23/151424 Bearing Press Machine Operator: Signed Olga Perezon Work Phone: Start: 01-16-2015 [...] Phone: Start: 05-20-2015 Lipid panel LIPID PANEL (38748) [facility] Work Phone: Start: 05-20-2015 TSH Qn TSH (79348) [facility] Work Phone: Start: 05-20-2015 Urnls dip stick/tablet reagent auto microscopy URINALYSIS, W/ MICRO (95877) [facility] Work Phone: Start: 05-20-2015 Urine albumin quantitative MICROALBUMIN: CREATININE RATIO (64655) AND (01791) [facility] Work Phone: Start: 05-20-2015 Comprehensive metabolic panel METABOLIC PANEL, COMPREHENSIVE (01703) [facility] Work Phone: Start: 05-20-2015 Blood count complete auto&auto difrntl wbc CBC W/AUTO DIFF WBC (74182) [facility] Work Phone: Start: 01-26-2015 Provider Instructions for Treatment *Colon Cancer Screening [facility] Work Phone: Start: 01-16-2015 TSH Qn TSH (99137) [facility] Work Phone: Start: 01-16-2015 Urnls dip stick/tablet reagent auto microscopy URINALYSIS, W/ MICRO (88083) [facility] Work Phone: Start: 01-16-2015 Urine albumin quantitative MICROALBUMIN: CREATININE RATIO (13472) AND (92937) [facility] Work Phone: Start: 01-16-2015 Comprehensive metabolic panel METABOLIC PANEL, COMPREHENSIVE (29145) [facility] Work Phone: Start: 01-16-2015 Lipid panel LIPID PANEL (83955) [facility] Work Phone: Start: 01-16-2015 Blood count complete auto&auto difrntl wbc CBC W/AUTO DIFF WBC (56562) [facility] Work Phone: Start: 01-16-2015 Patient Education Chronic Obstructive Pulmonary Disease (COPD) *: chronic obstructive pulmonary disease [facility] Work Phone: Start: 01-16-2015 Procedure Education Eprescribed prescriptions (G8553) [facility] Work Phone: Start: 01-16-2015 Provider Instructions for Treatment [facility] Work Phone: Start: 07-18-2014 Provider Instructions for Treatment [facility] Work Phone: Start: 07-18-2014 TSH Qn TSH (08115) [facility] Work Phone: Start: 07-18-2014 Urnls dip stick/tablet reagent auto microscopy URINALYSIS, W/ MICRO (08181) [facility] Work Phone: Start: 07-18-2014 Urine albumin quantitative MICROALBUMIN: CREATININE RATIO (64192) AND (51261) [facility] Work Phone: Start: 07-18-2014 Comprehensive metabolic panel METABOLIC PANEL, COMPREHENSIVE (05795) [facility] Work Phone: Start: 07-18-2014 Lipid panel LIPID PANEL (38918) [facility] Work Phone: Start: 07-18-2014 Blood count complete auto&auto difrntl wbc CBC W/AUTO DIFF WBC (42306) [facility] Work Phone: Start: 07-18-2014 Blood occult fecal hgb deter ia qual feces 1-3 FECAL OCCULT- Tubes sent home (55033) [facility] Work Phone: Start: 07-18-2014 Assay of prostate specific antigen total PSA (PROSTATE SPECIFIC ANTIGEN) (V76.44) [facility] Work Phone: Start: 04-13-2013 PSA TOTAL +%FREE 237964 (00435) PSA TOTAL +%FREE 790794 (71892) [facility] Work Phone: Start: 04-12-2013 Lipid panel Lipid Panel (39005) [facility] Work Phone: Start: 04-07-2013 Patient Education Flu (Influenza) *: flu shot [facility] Work Phone: Start: 04-07-2013 Provider Instructions for Treatment [facility] Work Phone: Start: 04-07-2013 Blood occult fecal hgb deter ia qual feces 1-3 FECAL OCCULT- Tubes sent home (01111) [facility] Work Phone: Start: 10-04-2012 [...] 11-06-2010 Hepatic function panel HEPATIC FUNCTION PANEL (54153) [facility] Work Phone: Start: 11-06-2010 Lipid panel LIPID PANEL (39562) [facility] Work Phone: Start: 10-27-2010 Provider [...] Work Phone: Start: 04-25-2010 TSH Qn TSH (71185) [facility] Work Phone: Start: 04-25-2010 Urnls dip stick/tablet reagent auto microscopy URINALYSIS, W/ MICRO (68852) [facility] Work Phone: Start: 04-25-2010 Urine albumin quantitative MICROALBUMIN: CREATININE RATIO (21916) AND (14989) [facility] Work Phone: Start: 04-25-2010 Comprehensive metabolic panel METABOLIC PANEL, COMPREHENSIVE (26992) [facility] Work Phone: Start: 04-25-2010 Blood count manual cell count each CBC WITH MANUAL DIFF (05049) [facility] Work Phone: Start: 04-25-2010 Lipid panel LIPID PANEL (63923) [facility] Work Phone: Start: 01-10-2010 Provider Instructions for Treatment [facility] Work Phone: Start: 01-10-2010 Lipid panel LIPID PANEL (11517) [facility] Work Phone: Immunizations Immunization Date Immunization Notes Care Provider Benito kaur 03-01-2009 influenza, seasonal, injectable Olga Perezon [facility] Work Phone: Payers Date Payer [...] CREATED AUTHOR AUTHOR'S ORGANIZ ATION 03/31/[address] [facility] FOR RECORDS PERTAINING TO PATIENTS WHO ARE [...] BE BASED ON THE PRIMARY CLINICAL RECORDS. [facility] [employer] [facility]. provides no warranty or guarantee of the accuracy or completeness of information in this document.
== END 2023-08-20 23:59 | disposition home or self-care (01) ==
LOC: SL 20:02
PROVIDERS: PCP Family Medicine; Referring Provider Nurse Practitioner Acute Care; Visit Provider Nurse Practitioner Acute Care
DX: G47.33 Obstructive sleep apnea (adult) (pediatric) (principal); G47.10 Hypersomnia, unspecified; R91.1 Solitary pulmonary nodule
CPT/HCPCS: 95811

== ENCOUNTER → 2023-09-09 | Outpatient (CLI) | payer MEDICARE, OTHER, SELFPAY ==
--- NOTE | 2023-09-09 12:35 | RAD_ITS ---
STUDY: X-RAY CHEST REASON FOR EXAM: Male, 78 years old. Shortness of breath. Weight gain. TECHNIQUE: Frontal and lateral views of the chest. COMPARISON: 06/24/2023 FINDINGS: Stable cardiomegaly, aortic tortuosity with calcification, prominent central pulmonary arteries, mild hyperinflation, diffuse interstitial pattern most marked on the right and bilateral pleural effusions/pleural thickening, right greater than left. No new acute or emergent findings. No abnormality of the visualized soft tissue structures of the upper abdomen. RAD/Chest PA and Lateral IMPRESSION: Stable chest with no acute superimposed finding. Electronically Signed: Aj Christian MD at 13:01 EDT ,
[2023-09-09 14:11] LABS: Basophil# 0.05 X10^3/uL; Eosinophil# 0.96 X10^3/uL; Hematocrit 31.6 % (40-54); Hemoglobin 9.8 g/dL (13.0-16.5); Mean Corpuscular Hgb 30.8 pg (27.0-32.0); Mean Corpuscular Volume 99.4 fL (80-94); Mean Platelet Vol. 10.8 fl (6.2-12.0); Monocyte# 0.73 X10^3/uL; NRBC Flagged by Analyzer 0.7 % (0-5); POSITIVE COUNT YES; POSITIVE MORPHOLOGY YES; Platelet Count 178 K/mm3 (150-450); RBC Distribution Width CV 16.8 % (11.6-14.6); RBC Distribution Width SD 61.6 fl (35.1-43.9); Red Blood Count 3.18 M/mm3 (4.6-6.2); White Blood Count 7.1 K/mm3 (4.4-11.0)
[2023-09-09 14:16] LABS: Differential Indicated SCAN CRITERIA MET
[2023-09-09 14:41] LABS: Eosinophil 10 % (0-5); Lymphocyte 19 % (19-41); Metamyelocyte 2 % (0-1); Monocyte 4 % (0-10); Myelocyte 1 % (0-0); Neutrophil-Segmented 64 % (47-70); Platelet Estimate ADEQUATE (ADEQ); Red Cell Morphology NORM C+C NORMAL (NORM C&C); Scan Smear per Review Criteria MANUAL DIFF; Total Cells Counted 100 (MANUAL DIFF)
[2023-09-09 14:42] LABS: Absolute Lymphocyte Count 1.33 X10^3/uL (0.83-4.51); Absolute Neutrophil Count 4.5 X10^3/uL (2.0-7.7); BNP,B-Type NATRIURETIC PEPTIDE 228.6 pg/mL (0-100); Lymphocyte # 1.33 X10^3/ul (0.83-4.51); Neutrophil # 4.51 X10^3/uL (2.7-7.7)
[2023-09-09 14:46] LABS: Anion Gap 6 (5-15); BUN 17 mg/dL (7-18); BUN/Creat Ratio 14.3 RATIO (10-20); Calcium,Total 8.7 mg/dL (8.5-10.1); Chloride 108 mmol/L (98-107); Creatinine, Serum 1.19 mg/dL (0.70-1.30); EST Glomerular Filtration Rate 63 mL/min (>60); Est Glom Filt Rate - Afr Amer 76 mL/min (>60); Glucose 143 mg/dL (74-106); Potassium 4.1 mmol/L (3.5-5.1); Sodium Level 140 mmol/L (136-145)
--- OUTSIDE RECORDS SUMMARY | 2023-09-09 20:41 | XMS RPT_ITS | CCD ---
Author Name Unknown Address [address] [place] [address] Organization [facility] Care Team Providers Care Sheriff'S Detective Name Role Phone Olga pSears Unavailable Erin Mccracken Unavailable Unavailable Anika Umana [...] 04-13-2013 End: 04-13-2013 Phone Encounter Olga Roberts [facility] Start: 04-12-2013 End: 04-12-2013 Phone Encounter Olga Roberts [facility] Start: 04-07-2013 End: 04-07-2013 Patient encounter procedure Olga Roberts [facility] Start: 10-04-2012 End: 10-04-2012 Patient encounter procedure Olga Roberts [facility] Start: 02-05-2012 End: 02-05-2012 Patient encounter procedure Olga Roberts [facility] Start: 06-12-2011 End: 06-12-2011 Patient encounter procedure Olga Roberts [facility] Start: 06-01-2011 End: 06-01-2011 Annotation/Addendum Olga Roberts [facility] Start: 06-01-2011 End: 06-01-2011 Office outpatient visit 15 minutes Olga Roberts [facility] Start: 10-27-2010 End: 10-27-2010 Patient encounter procedure Olga Roberts [facility] Start: 08-28-2010 End: 08-28-2010 Patient encounter procedure Olga Spears [facility] [place] [facility] Start: 04-25-2010 End: 04-25-2010 Patient encounter procedure Olga Spears [facility] [place] [facility] Start: 01-10-2010 End: 01-10-2010 Patient encounter procedure Olga Spears [facility] Start: 10-25-2009 End: 10-25-2009 Patient encounter procedure Olga Spears [facility] Start: 04-25-2009 End: 04-25-2009 Patient encounter procedure Olga Spears [facility] [place] [facility] Start: 03-01-2009 End: 03-01-2009 Office outpatient visit 25 minutes Olga Tory [facility] [place] [facility] Start: 02-22-2009 End: 02-22-2009 Office outpatient visit 10 minutes Olgaannette Spears [facility] [place] [facility] Start: 02-18-2009 End: 02-18-2009 Office outpatient visit 25 minutes Olgadave Spears [facility] [place] [facility] Start: 01-21-2009 End: 01-21-2009 Historical Summary Ogla Tory [facility] [place] Clerk Operator al Medicine Start: 01-21-2009 End: 01-21-2009 Office outpatient visit 15 minutes Olga Tory [facility] [place] [facility] Start: 01-04-2009 End: 01-07-2009 Patient encounter procedure Olga Spears [facility] [place] [facility] Start: 07-02-2008 End: 07-02-2008 Patient encounter procedure Olga Spears [facility] [place] [facility] Start: 09-23-2007 End: 09-23-2007 Office outpatient visit 25 minutes Olga Tory [facility] [place] [facility] Start: 09-05-2007 End: 09-05-2007 Patient encounter procedure Olgaannette Spears [facility] [place] [facility] Start: 04-12-2007 End: 04-12-2007 Historical Summary Olga Spears [facility] [place] Clerk Operator al Medicine Start: 11-29-2006 End: 11-29-2006 Office outpatient visit 10 minutes Olga Tory [facility] [place] [facility] Start: 11-25-2006 End: 11-25-2006 Historical Summary Olga Spears [facility] [place] Clerk Operator al Medicine Start: 10-29-2006 End: 10-31-2006 Office outpatient visit 25 minutes Olga Spears [facility] [place] [facility] Start: 04-23-2006 End: 04-23-2006 Office outpatient visit 25 minutes Olga Troy [facility] [place] [facility] Start: 03-23-2006 End: 03-23-2006 Historical Summary Olga Spears [facility] [place] Clerk Operator al Medicine Procedures Date Procedure Procedure Detail Performing Clinician Start: 12-17-2017 End: 12-18-2017 Kidney and Bladder Comments: See Note; NOTES: [facility] Imaging Services [address] [place] [address] Kidney and Bladder MR#: [id number] Acct: [id number] Name: ANJUM GILBERT Rep #: [id number] : 1945 M 72 From: Roni Hackett DO PCP: Olga Spears DO Status: REG CLI Study: Kidney and Bladder Date of Exam: 12/17/17 Exam# [id number] Ordering Dr: Grecia Swain PLANT ENGINEERING SUPERVISOR-C STUDY: RENAL ULTRASOUND - COMPLETE REASON FOR [...] CC: Olga Spears DO; Grecia Swain NP Food Service Technician: Signed Olga Spears Work Phone: Start: 08-31-2015 End: 08-31-2015 Operative Report Comments: See Note; NOTES: [facility] Medical Records Department [address] [place] [address] Operative Report MR#: [id number] Acct: [id number] Name: ANJUM GILBERT Rep #: [id number] : 1945 70 From: Almas Villegas MD PCP: Olga Spears DO Status: REG [facility] DATE OF SERVICE: 08/30/2015 DATE OF SERVICE: [...] filled with water-soluble lubricant, dilated to 28 Romanian and then a 26-Romanian resectoscopic sheath was inserted. Then, using the [...] condition. Almas Villegas MD T: NTS JOB: [id number] 08/31/15 1155 <Electronically signed by Almas Villegas MD> Date Almas Villegas MD Cosigner Signature (If Indicated): Date CC: Olga Spears DO; Almas Villegas MD Date Dictated: 08/30/151325 Date Transcribed: 08/30/151325 Food Service Technician: Signed Olga Spears Start: 08-31-2015 End: 08-31-2015 Discharge Instruction Comments: See Note; NOTES: [facility] Medical Records Department [address] [place] [address] Instructions for Home/Discharge Instructions 08/31/15 1150 MR#: [id number] Acct: [id number] Name: ANJUM GILBERT Rep #: [id number] : 1945 70 From: Almas Villegas MD PCP: Ogla Spears DO Status: REG [facility] Discharge Diet: No Restrictions - ENCOURAGE FLUIDS [...] Please Follow Up With: Almas Villegas - [phone] When: CALL SOON FOR AN APPT IN ABOUT 2 WKS, NO CHANGES, ADDITIONS TO HOME MEDS 08/31/15 1154 <Electronically signed by Almas Villegas MD> Date Almas Villegas MD CC: Olga Martini Start: 08-26-2015 End: 08-26-2015 12 lead ECG Comments: See Note; NOTES: [facility] Cardiovascular Services [address] [place] [address] EKG - [facility] 08/23/15 1425 MR#: [id number] Acct: [id number] Name: ANJUM GILBERT Rep #: [id number] : 1945 70 From: Almas Pierce MD Attending Dr: Almas Villegas MD Status: PRE [facility] Ordering Dr: Almas Villegas MD Date: 08/23/15 Location: [facility] Sex: M C Admitted: Test Reason : Blood Pressure : / mmHG Vent. Rate : 058 BPM Atrial Rate : 058 BPM P-R Int : 192 ms QRS Dur : 098 ms QT Int : 408 ms P-R-T Axes : 045 066 062 degrees QTc Int : 400 ms Sinus bradycardia Otherwise normal ECG Confirmed by ALMAS PIERCE MD ([id number]), business editor GIDEON MESA ([id number]) on 08/26/2015 1:30:14 PM Referred By: RODOLFO VILLEGAS Confirmed By:ALMAS PIERCE MD 08/26/15 1130 Date Almas Pierce MD CC: Olga Tory DO; Almas Pierce MD Date Dictated: 08/23/15 1425 Date Transcribed: 08/23/151424 Food Service Technician: Signed Olga Perezon Work Phone: Start: 01-16-2015 [...] Phone: Start: 05-20-2015 Lipid panel LIPID PANEL (10199) [facility] Work Phone: Start: 05-20-2015 TSH Qn TSH (02549) [facility] Work Phone: Start: 05-20-2015 Urnls dip stick/tablet reagent auto microscopy URINALYSIS, W/ MICRO (66363) [facility] Work Phone: Start: 05-20-2015 Urine albumin quantitative MICROALBUMIN: CREATININE RATIO (56220) AND (37715) [facility] Work Phone: Start: 05-20-2015 Comprehensive metabolic panel METABOLIC PANEL, COMPREHENSIVE (22347) [facility] Work Phone: Start: 05-20-2015 Blood count complete auto&auto difrntl wbc CBC W/AUTO DIFF WBC (53393) [facility] Work Phone: Start: 01-26-2015 Provider Instructions for Treatment *Colon Cancer Screening [facility] Work Phone: Start: 01-16-2015 TSH Qn TSH (83497) [facility] Work Phone: Start: 01-16-2015 Urnls dip stick/tablet reagent auto microscopy URINALYSIS, W/ MICRO (52597) [facility] Work Phone: Start: 01-16-2015 Urine albumin quantitative MICROALBUMIN: CREATININE RATIO (83235) AND (60964) [facility] Work Phone: Start: 01-16-2015 Comprehensive metabolic panel METABOLIC PANEL, COMPREHENSIVE (37462) [facility] Work Phone: Start: 01-16-2015 Lipid panel LIPID PANEL (92086) [facility] Work Phone: Start: 01-16-2015 Blood count complete auto&auto difrntl wbc CBC W/AUTO DIFF WBC (93561) [facility] Work Phone: Start: 01-16-2015 Patient Education Chronic Obstructive Pulmonary Disease (COPD) *: chronic obstructive pulmonary disease [facility] Work Phone: Start: 01-16-2015 Procedure Education Eprescribed prescriptions (G8553) [facility] Work Phone: Start: 01-16-2015 Provider Instructions for Treatment [facility] Work Phone: Start: 07-18-2014 Provider Instructions for Treatment [facility] Work Phone: Start: 07-18-2014 TSH Qn TSH (20508) [facility] Work Phone: Start: 07-18-2014 Urnls dip stick/tablet reagent auto microscopy URINALYSIS, W/ MICRO (62401) [facility] Work Phone: Start: 07-18-2014 Urine albumin quantitative MICROALBUMIN: CREATININE RATIO (23196) AND (99366) [facility] Work Phone: Start: 07-18-2014 Comprehensive metabolic panel METABOLIC PANEL, COMPREHENSIVE (14084) [facility] Work Phone: Start: 07-18-2014 Lipid panel LIPID PANEL (51361) [facility] Work Phone: Start: 07-18-2014 Blood count complete auto&auto difrntl wbc CBC W/AUTO DIFF WBC (98489) [facility] Work Phone: Start: 07-18-2014 Blood occult fecal hgb deter ia qual feces 1-3 FECAL OCCULT- Tubes sent home (82991) [facility] Work Phone: Start: 07-18-2014 Assay of prostate specific antigen total PSA (PROSTATE SPECIFIC ANTIGEN) (V76.44) [facility] Work Phone: Start: 04-13-2013 PSA TOTAL +%FREE 890973 (33696) PSA TOTAL +%FREE 777191 (10725) [facility] Work Phone: Start: 04-12-2013 Lipid panel Lipid Panel (21275) [facility] Work Phone: Start: 04-07-2013 Patient Education Flu (Influenza) *: flu shot [facility] Work Phone: Start: 04-07-2013 Provider Instructions for Treatment [facility] Work Phone: Start: 04-07-2013 Blood occult fecal hgb deter ia qual feces 1-3 FECAL OCCULT- Tubes sent home (87460) [facility] Work Phone: Start: 10-04-2012 [...] 11-06-2010 Hepatic function panel HEPATIC FUNCTION PANEL (44848) [facility] Work Phone: Start: 11-06-2010 Lipid panel LIPID PANEL (88820) [facility] Work Phone: Start: 10-27-2010 Provider [...] Work Phone: Start: 04-25-2010 TSH Qn TSH (67340) [facility] Work Phone: Start: 04-25-2010 Urnls dip stick/tablet reagent auto microscopy URINALYSIS, W/ MICRO (52848) [facility] Work Phone: Start: 04-25-2010 Urine albumin quantitative MICROALBUMIN: CREATININE RATIO (84645) AND (26442) [facility] Work Phone: Start: 04-25-2010 Comprehensive metabolic panel METABOLIC PANEL, COMPREHENSIVE (20094) [facility] Work Phone: Start: 04-25-2010 Blood count manual cell count each CBC WITH MANUAL DIFF (64936) [facility] Work Phone: Start: 04-25-2010 Lipid panel LIPID PANEL (45198) [facility] Work Phone: Start: 01-10-2010 Provider Instructions for Treatment [facility] Work Phone: Start: 01-10-2010 Lipid panel LIPID PANEL (71604) [facility] Work Phone: Immunizations Immunization Date Immunization Notes Care Provider Benito kaur 03-01-2009 influenza, seasonal, injectable Olga Perezon [facility] Work Phone: Payers Date Payer [...] CREATED AUTHOR AUTHOR'S ORGANIZ ATION 03/31/2020 [facility] FOR RECORDS PERTAINING TO PATIENTS WHO [...] BE BASED ON THE PRIMARY CLINICAL RECORDS. [facility] [employer] [facility]. provides no warranty or guarantee of the accuracy or completeness of information in this document.
[2023-09-10 16:07] LABS: Pathologist Review Reviewed
== END | disposition home or self-care (01) ==
LOC: LAB 12:30
PROVIDERS: PCP Family Medicine; Referring Provider Physician Assistant Medical; Visit Provider Physician Assistant Medical
DX: R63.5 Abnormal weight gain (principal); R60.9 Edema, unspecified; Z79.899 Other long term (current) drug therapy; R06.02 Shortness of breath
CPT/HCPCS: 36415; 71046; 80048; 83880; 85025

== ENCOUNTER → 2023-09-10 | Outpatient (CLI) | payer MEDICARE, OTHER, SELFPAY ==
--- OUTSIDE RECORDS SUMMARY | 2023-09-10 20:03 | XMS RPT_ITS | CCD ---
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 Name Role Phone Olga Spears Unavailable Erin [...] 04-13-2013 End: 04-13-2013 Phone Encounter Olga Roberts Inside Sales Representative [facility] Medicine Start: 04-12-2013 End: 04-12-2013 Phone Encounter Olga Roberts Inside Sales Representative [facility] Start: 04-07-2013 End: 04-07-2013 Patient encounter procedure Olga Roberts [facility] Start: 10-04-2012 End: 10-04-2012 Patient encounter procedure Olga Roberts [facility] Start: 02-05-2012 End: 02-05-2012 Patient encounter procedure Olga Roberts [facility] Start: 06-12-2011 End: 06-12-2011 Patient encounter procedure Olga Roberts [facility] Start: 06-01-2011 End: 06-01-2011 Annotation/Addendum Olga Roberts [facility] Sales [facility] Start: 06-01-2011 End: 06-01-2011 Office outpatient visit 15 minutes Olga Roberts [facility] Start: 10-27-2010 End: 10-27-2010 Patient encounter procedure Olga Roberts [facility] Start: 08-28-2010 End: 08-28-2010 Patient encounter procedure Olga Spears [facility] Start: 04-25-2010 End: 04-25-2010 Patient encounter procedure Olga Spears [facility] Start: 01-10-2010 End: 01-10-2010 Patient encounter procedure Olga Spears [facility] Start: 10-25-2009 End: 10-25-2009 Patient encounter procedure Olga Spears [facility] Start: 04-25-2009 End: 04-25-2009 Patient encounter procedure Olga Spears [facility] Start: 03-01-2009 End: 03-01-2009 Office outpatient visit 25 minutes Olga Tory [facility] Start: 02-22-2009 End: 02-22-2009 Office outpatient visit 10 minutes Olgaannette Spears [facility] Start: 02-18-2009 End: 02-18-2009 Office outpatient visit 25 minutes Olgadave Spears [facility] Start: 01-21-2009 End: 01-21-2009 Historical Summary Olga Tory [facility] Inside Sales Representative al Medicine Start: 01-21-2009 End: 01-21-2009 Office outpatient visit 15 minutes Olga Tory [facility] Start: 01-04-2009 End: 01-07-2009 Patient encounter procedure Olga Spears [facility] Start: 07-02-2008 End: 07-02-2008 Patient encounter procedure Olga Spears [facility] Start: 09-23-2007 End: 09-23-2007 Office outpatient visit 25 minutes Olga Tory [facility] Start: 09-05-2007 End: 09-05-2007 Patient encounter procedure Olgaannette Spears [facility] Internal Medicine Start: 04-12-2007 End: 04-12-2007 Historical Summary Olga Spears [facility] Inside Sales Representative al Medicine Start: 11-29-2006 End: 11-29-2006 Office outpatient visit 10 minutes Olga Tory [facility] Start: 11-25-2006 End: 11-25-2006 Historical Summary Olga Spears [facility] Inside Sales Representative al Medicine Start: 10-29-2006 End: 10-31-2006 Office outpatient visit 25 minutes Olga Spears [facility] Start: 04-23-2006 End: 04-23-2006 Office outpatient visit 25 minutes Olga Toyr [facility] Internal Medicine Start: 03-23-2006 End: 03-23-2006 Historical Summary Olga Spears [facility] Inside Sales Representative al Medicine Procedures Date Procedure Procedure Detail Performing Clinician Start: 12-17-2017 End: 12-18-2017 Kidney and Bladder Comments: See Note; NOTES: [facility] Imaging Services [address] [place] [address] Kidney and Bladder MR#: [id number] Acct: [id number] Name: ANJUM GILBERT Rep #: [id number] : 1945 M 72 From: Roni Hackett DO PCP: Olga Spears DO Status: REG CLI Study: Kidney and Bladder Date of Exam: 12/17/17 Exam# [id number] Ordering Dr: Grecia Swain FIELD [employer]ILL[employer] CANNONEER-C STUDY: RENAL ULTRASOUND - COMPLETE REASON FOR [...] CC: Olga Spears DO; Grecia Swain NP Logistics Planner: Signed Olga Spears Work Phone: Start: 08-31-2015 End: 08-31-2015 Operative Report Comments: See Note; NOTES: [facility] Medical Records Department [address] [place] [address] Operative Report MR#: [id number] Acct: [id number] Name: ANJUM GILBERT Rep #: [id number] : 1945 70 From: Almas Villegas MD PCP: Olga Spears DO Status: REG [facility] DATE OF SERVICE: 08/30/2015 DATE OF SERVICE: [...] filled with water-soluble lubricant, dilated to 28 Macanese and then a 26-Macanese resectoscopic sheath was inserted. Then, using the [...] condition. Almas Villegas MD T: NTS JOB: [id number] 08/31/15 1155 <Electronically signed by Almas Villegas MD> Date Almas Villegas MD Cosigner Signature (If Indicated): Date CC: Olga Spears DO; Almas Villegas MD Date Dictated: 08/30/151325 Date Transcribed: 08/30/151325 Logistics Planner: Signed Olga Spears Start: 08-31-2015 End: 08-31-2015 Discharge Instruction Comments: See Note; NOTES: [facility] Medical Records Department [address] [place] [address] Instructions for Home/Discharge Instructions 08/31/15 1150 MR#: [id number] Acct: [id number] Name: ANJUM GILBERT Rep #: [id number] : 1945 70 From: Almas Villegas MD PCP: Olga Spears DO Status: REG [facility] Discharge Diet: No Restrictions - ENCOURAGE FLUIDS [...] Please Follow Up With: Almas Villegas - [phone] When: CALL SOON FOR AN APPT IN ABOUT 2 WKS, NO CHANGES, ADDITIONS TO HOME MEDS 08/31/15 1154 <Electronically signed by Almas Villegas MD> Date Almas Villegas MD CC: Olga Martini Start: 08-26-2015 End: 08-26-2015 12 lead ECG Comments: See Note; NOTES: [facility] Cardiovascular Services [address] [place] [address] EKG - [facility] 08/23/15 1425 MR#: [id number] Acct: [id number] Name: ANJUM GILBERT Rep #: [id number] : 1945 70 From: Almas Pierce MD Attending Dr: Almas Villegas MD Status: PRE [facility] Ordering Dr: Almas Villegas MD Date: 08/23/15 Location: [facility] Sex: M C Admitted: Test Reason : Blood Pressure : / mmHG Vent. Rate : 058 BPM Atrial Rate : 058 BPM P-R Int : 192 ms QRS Dur : 098 ms QT Int : 408 ms P-R-T Axes : 045 066 062 degrees QTc Int : 400 ms Sinus bradycardia Otherwise normal ECG Confirmed by ALMAS PIERCE MD ([id number]), newspaper editor GIDEON MESA ([id number]) on 08/26/2015 1:30:14 PM Referred By: RODOLFO VILLEGAS Confirmed By:ALMAS PIERCE MD 08/26/15 1205 Date Almas Pierce MD CC: Olga Tory DO; Almas Pierce MD Date Dictated: 08/23/15 1425 Date Transcribed: 08/23/151424 Logistics Planner: Signed Olga Perezon Work Phone: Start: 01-16-2015 [...] Phone: Start: 05-20-2015 Lipid panel LIPID PANEL (23262) [facility] Work Phone: Start: 05-20-2015 TSH Qn TSH (42504) [facility] Work Phone: Start: 05-20-2015 Urnls dip stick/tablet reagent auto microscopy URINALYSIS, W/ MICRO (60662) [facility] Work Phone: Start: 05-20-2015 Urine albumin quantitative MICROALBUMIN: CREATININE RATIO (63036) AND (25818) [facility] Work Phone: Start: 05-20-2015 Comprehensive metabolic panel METABOLIC PANEL, COMPREHENSIVE (69262) [facility] Work Phone: Start: 05-20-2015 Blood count complete auto&auto difrntl wbc CBC W/AUTO DIFF WBC (12831) [facility] Work Phone: Start: 01-26-2015 Provider Instructions for Treatment *Colon Cancer Screening [facility] Work Phone: Start: 01-16-2015 TSH Qn TSH (54011) [facility] Work Phone: Start: 01-16-2015 Urnls dip stick/tablet reagent auto microscopy URINALYSIS, W/ MICRO (60426) [facility] Work Phone: Start: 01-16-2015 Urine albumin quantitative MICROALBUMIN: CREATININE RATIO (29967) AND (05860) [facility] Work Phone: Start: 01-16-2015 Comprehensive metabolic panel METABOLIC PANEL, COMPREHENSIVE (23614) [facility] Work Phone: Start: 01-16-2015 Lipid panel LIPID PANEL (64915) [facility] Work Phone: Start: 01-16-2015 Blood count complete auto&auto difrntl wbc CBC W/AUTO DIFF WBC (31752) [facility] Work Phone: Start: 01-16-2015 Patient Education Chronic Obstructive Pulmonary Disease (COPD) *: chronic obstructive pulmonary disease [facility] Work Phone: Start: 01-16-2015 Procedure Education Eprescribed prescriptions (G8553) [facility] Work Phone: Start: 01-16-2015 Provider Instructions for Treatment [facility] Work Phone: Start: 07-18-2014 Provider Instructions for Treatment [facility] Work Phone: Start: 07-18-2014 TSH Qn TSH (94589) [facility] Work Phone: Start: 07-18-2014 Urnls dip stick/tablet reagent auto microscopy URINALYSIS, W/ MICRO (41570) [facility] Work Phone: Start: 07-18-2014 Urine albumin quantitative MICROALBUMIN: CREATININE RATIO (73939) AND (16316) [facility] Work Phone: Start: 07-18-2014 Comprehensive metabolic panel METABOLIC PANEL, COMPREHENSIVE (53287) [facility] Work Phone: Start: 07-18-2014 Lipid panel LIPID PANEL (78798) [facility] Work Phone: Start: 07-18-2014 Blood count complete auto&auto difrntl wbc CBC W/AUTO DIFF WBC (77186) [facility] Work Phone: Start: 07-18-2014 Blood occult fecal hgb deter ia qual feces 1-3 FECAL OCCULT- Tubes sent home (88944) [facility] Work Phone: Start: 07-18-2014 Assay of prostate specific antigen total PSA (PROSTATE SPECIFIC ANTIGEN) (V76.44) [facility] Work Phone: Start: 04-13-2013 PSA TOTAL +%FREE 083260 (77847) PSA TOTAL +%FREE 499203 (27798) [facility] Work Phone: Start: 04-12-2013 Lipid panel Lipid Panel (26244) [facility] Work Phone: Start: 04-07-2013 Patient Education Flu (Influenza) *: flu shot [facility] Work Phone: Start: 04-07-2013 Provider Instructions for Treatment [facility] Work Phone: Start: 04-07-2013 Blood occult fecal hgb deter ia qual feces 1-3 FECAL OCCULT- Tubes sent home (61973) [facility] Work Phone: Start: 10-04-2012 [...] 11-06-2010 Hepatic function panel HEPATIC FUNCTION PANEL (06554) [facility] Work Phone: Start: 11-06-2010 Lipid panel LIPID PANEL (51157) [facility] Work Phone: Start: 10-27-2010 Provider [...] Work Phone: Start: 04-25-2010 TSH Qn TSH (59765) [facility] Work Phone: Start: 04-25-2010 Urnls dip stick/tablet reagent auto microscopy URINALYSIS, W/ MICRO (49726) [facility] Work Phone: Start: 04-25-2010 Urine albumin quantitative MICROALBUMIN: CREATININE RATIO (84269) AND (09305) [facility] Work Phone: Start: 04-25-2010 Comprehensive metabolic panel METABOLIC PANEL, COMPREHENSIVE (19434) [facility] Work Phone: Start: 04-25-2010 Blood count manual cell count each CBC WITH MANUAL DIFF (22244) [facility] Work Phone: Start: 04-25-2010 Lipid panel LIPID PANEL (29501) [facility] Work Phone: Start: 01-10-2010 Provider Instructions for Treatment [facility] Work Phone: Start: 01-10-2010 Lipid panel LIPID PANEL (31540) [facility] Work Phone: Immunizations Immunization Date Immunization Notes Care Provider Benito kaur 03-01-2009 influenza, seasonal, injectable Olga Perezon [facility] Work Phone: Payers Date Payer [...] DATE CREATED AUTHOR AUTHOR'S ORGANIZ ATION 03/31/2020 [facility] FOR RECORDS PERTAINING TO PATIENTS WHO ARE [...] BE BASED ON THE PRIMARY CLINICAL RECORDS. [facility] [employer] [facility]. provides no warranty or guarantee of the accuracy or completeness of information in this document.
== END | disposition home or self-care (01) ==
LOC: SL 19:47
PROVIDERS: PCP Family Medicine; Referring Provider Nurse Practitioner Acute Care; Visit Provider Nurse Practitioner Acute Care
DX: G47.10 Hypersomnia, unspecified (principal)
CPT/HCPCS: 95810

== ENCOUNTER → 2023-09-13 | Outpatient (CLI) | payer MEDICARE, OTHER, SELFPAY | END | disposition home or self-care (01) | LOC: LABSPEC 12:18 | PROVIDERS: PCP Family Medicine; Referring Provider Physician Assistant Medical; Visit Provider Physician Assistant Medical | DX: R71.0 Precipitous drop in hematocrit (principal); R19.5 Other fecal abnormalities | CPT/HCPCS: 82274 ==

== ENCOUNTER → 2023-09-17 | Outpatient (CLI) | payer MEDICARE, OTHER, SELFPAY ==
--- NOTE | 2023-09-17 15:06 | CT_ITS ---
STUDY: CT CHEST WITHOUT CONTRAST REASON FOR EXAM: Male, 78 years old. New nodule -- RADIATION DOSAGE (If Supplied By Facility): CTDIvol = ( 17.43 ) mGy, DLP = ( 679.57 ) mGycm TECHNIQUE: Transaxial imaging was performed without the administration of intravenous contrast material. Multiplanar coronal and sagittal images were reformatted. Individualized dose optimization techniques were used for this CT. COMPARISON: Comparison is made with prior study dated July 09, 2023. FINDINGS: CHEST Hyperinflation. Emphysematous changes. Persistent scarring in the upper lobes worse on the right side although there has been improvement. Centrilobular emphysematous changes seen in the right upper lobe. Stable 1.1 cm x 0.87 nodule in the peripheral lateral aspect of the right upper lobe abutting the right minor fissure. Persistent scarring with bronchiectasis and subpleural blebs in the right middle lobe and right lower lobe as well as in the left lower lobe. This is acute with chronic interstitial fibrosis. There is no demonstrated pleural abnormality. There are calcifications of the coronary arteries. Normal mediastinum. Normal hilar regions. Normal unenhanced pulmonary arteries. There is atherosclerotic calcification of the aortic arch with tortuosity and elongation of the aortic arch and descending thoracic aorta. There is demineralization of the thoracic spine. There is no demonstrated abnormality of the visualized upper abdomen. CT/Chest without Contrast IMPRESSION: Stable examination. 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 Follow-up in 12 months. Electronically Signed: Brian Duran MD at 15:24 EDT ,
== END | disposition home or self-care (01) ==
LOC: CT 14:57
PROVIDERS: PCP Family Medicine; Referring Provider Nurse Practitioner Acute Care; Visit Provider Nurse Practitioner Acute Care
DX: R91.1 Solitary pulmonary nodule (principal)
CPT/HCPCS: 71250

== ENCOUNTER → 2023-09-27 | Outpatient (CLI) | payer MEDICARE, OTHER, SELFPAY | END | disposition home or self-care (01) | LOC: SL 19:57 | PROVIDERS: PCP Family Medicine; Referring Provider Nurse Practitioner Acute Care; Visit Provider Nurse Practitioner Acute Care | DX: G47.30 Sleep apnea, unspecified (principal) | CPT/HCPCS: 95811 ==

== ENCOUNTER 2023-10-20 07:36 | Day surgery (SDC) | payer MEDICARE, OTHER, SELFPAY ==
[2023-10-20 07:54] VITALS: BP 114/71; PULSE 67; RESP 16; TEMP 36.1; O2SAT 95; BMI 31.1
[2023-10-20] MEDS: Lactated Ringers 1,000 ML 15 ML IV (07:59)
--- NOTE | 2023-10-20 08:03 | PCM.HP.BLA ---
History and Physical Date of Admission: 10/20/23 Date of Service: 09/29/23 MR#: [id number] Acct: [id number] Name: ANJUM GILBERT Rep #: [id number] : 1945 Provider: Dr. Lilly Navarrete MD Age/Sex: 78/M Location: [facility] Status: Signed Intake Vital Signs 08/13/2407:29 09/28/2412:59 Height 6 ft 1 in 6 ft 1 in Weight: 245 lb BMI 32.3 BP 101/67 Blood Pressure Location Rt brachial Position Sitting Respiration 17 Pulse 73 Pulse Source Monitor Pulse Oximetry (%) 95 Oxygen Delivery Method room air Intake Visit Reasons: ANEMIA, SCREENING COLONOSCOPY/EGD Chief Complaint: anemia,screening colonoscopy/egd Is patient in pain?: No Allergies No Known Allergies Allergy (Verified 09/29/23 14:02) Medications omega-3 fatty acids-fish oil 340 mg-1,000 mg capsule 3 ea PO BID supplement 05/31/19 [History Confirmed 09/29/23] apixaban 5 mg tablet (Eliquis) 5 mg PO BID #60 tabs 03/18/21 [Rx Confirmed 09/29/23] atorvastatin 40 mg tablet 40 mg PO QHS 03/18/21 [History Confirmed 09/29/23] amiodarone 200 mg tablet 200 mg PO DAILY #90 tabs 02/02/23 [Rx Confirmed 09/29/23] metoprolol tartrate 50 mg tablet 50 mg PO BID this is a dose increase #180 tabs 02/02/23 [Rx Confirmed 09/29/23] docusate sodium 100 mg capsule 100 mg PO BID 07/01/23 [History Confirmed 09/29/23] furosemide 40 mg tablet 40 mg PO .COMPLEX #5 tabs 09/09/23 [Rx Confirmed 09/29/23] [facility] Medical History (Reviewed 08/13/23 @ 14:05 by Lisa Madrigal WEB PRESS OPERATOR APPRENTICE, WEB PRESS OPERATOR APPRENTICE-C) BPH (benign prostatic hyperplasia) Cataracts, bilateral Essential hypertension Hyperlipidemia New onset atrial fibrillation (03/14/21) Obesity Tobacco dependence Surgical History History of appendectomy History of transurethral resection of prostate Family History Mother Heart disease Hypertension Thyroid disorderFather Heart diseaseBrother Hypertension Social History Smoking Status: Former smoker quit date: 02/26/21 alcohol intake: current alcohol intake frequency: a few times a month HPI HPI HPI: 78-year-old male presents for EGD and colonoscopy due to anemia. Patient's hemoglobin is noted to be 9.8 last check was 14.7 that was in January 2023. Patient is currently on Eliquis due to A-fib currently he is actually off Eliquis due to drop in hemoglobin. Patient states he has bowel movements every other day describes them as dark brown denies black or red stools. Patient states he does typically have problems constipation does take fish oil as well as Colace to help with this. Patient not sure how much fiber he gets in his diet does not think he drinks enough liquids mostly green tea. Patient is currently on iron. Patient does state he noticed some new abdominal bloating and weight gain from 227-240 per patient-did mention snacking could have something to do with that. Patient states he had a colonoscopy 10 or 12 years ago that was negative as far as he remembers. Patient denies any family history of colon cancer. ROS General General: Yes weight change and fatigue; No appetite, colon cancer, breast cancer or weakness HEENT HEENT: No difficulty swallowing, eye injury, eye surgery, swollen glands or hoarseness Endo Endocrine: No thyroid disease, diabetes mellitus, thyroid cancer, Hair loss, heat intolerance or cold intolerance Skin Skin: No rash or changing moles Musc Musculoskeletal: Yes back problems and arthritis; No rheumatoid arthritis, gout or joint pain Cardio Cardiovascular: Yes atrial fibrillation and high blood pressure; No murmur, pacemaker, heart disease, heart attack, heart stent, palpitations, shortness of breat with exertion or chest pain Psych Psychiatric: No depression, anxiety or hearing voices Resp Respiratory: Yes shortness of breath, Yes sleep apnea, Yes cough, Yes COPD, No asthma, No emphysema and No wheezing Gastro Gastrointestinal: No abdominal pain, No nausea or vomiting, No diarrhea, Yes constipation, Yes blood in stool, No acid reflux, No hemorrhoids, No ulcers, No gallbladder problem and No black,tarry stools Jamaal Hematologic: Yes blood thinners, No blood disorders, No bleeding, No anemia and No blood clots Neuro Neurologic: No system reviewed and no additional complaints, except as documented, No as per HPI, No abnormal gait, No abnormal hearing, No abnormal movements, No abnormal speech, No behavioral changes, No burning sensations, No confusion, No convulsions, No disequilibrium, No dizziness, No localized weakness, No frequent falls, No headache(s), No lack of coordination, No loss of vision, No memory loss, No numbness, No other visual disturbances, No radicular pain, No restless legs, No sensory deficit, No syncope, No tingling, No tremor(s), No weakness and No other Exam Const General: cooperative, healthy appearing, comfortable and no acute distress HENMT Head: normocephalic and atraumatic Neck Neck: supple Resp Effort & Inspection: normal respiratory effort Cardio Rate: regular rate GI Inspection: non-distended Palpation: soft, no hernias and nontender Skin General: no rashes or lesions noted Neuro General: CN's II-XI intact bilaterally Extrem General: normal to inspection Psych Mental Status: mental status grossly normal Attitude: cooperative Assessment and Plan Assessment and Plan (1) Anemia: Status: Acute Plan Patient is currently off his Eliquis due to the drop in hemoglobin. Will try to plan on EGD and colonoscopy shortly. Will also have him hold his fish oil. I have discussed the above with the patient. I have offered the patient esophagogastroduodenoscopy and colonoscopy for evaluation. I have explained the risks/benefits of the procedure and described the procedure. I have discussed the risks with the patient, including but not limited to: infection, bleeding, perforation of the GI tract requiring emergency surgery, inability to complete the procedure, injury to any internal organs, complications of anesthesia, etc. - the patient understands and agrees to proceed. I have answered all the patient's questions to the patient's satisfaction and the patient has no further questions. The patient has been given instructions for the colon cleansing preparation. 1 day of clears, MiraLAX Dulcolax prep. Lilly Navarrete M.D. Pager: [phone] [facility] [address] [place] [address], [facility], [address] [place] [address] Office: [phone] Coding Level of Care Code Off vis,new,level 3 Diagnoses Anemia D64.9 09/30/23 1253 <Electronically signed by Lilly Navarrete MD> Date Lilly Navarrete MD
[2023-10-20 08:53] VITALS: BP 114/71; BP 94/65; PULSE 67; RESP 16; TEMP 36.1; O2SAT 100
[2023-10-20 08:55] VITALS: BP 114/71; BP 90/57; PULSE 69; RESP 16; O2SAT 99
--- NOTE | 2023-10-20 08:57 | OP.EGD_ITS ---
Patient Name: Aj Serrano Procedure Date: 10/20/2023 8:09 AM Date of : 1945 Age: 78 Procedure: Upper GI endoscopy Indications: Iron deficiency anemia Providers: Lilly Navarrete MD Medicines: Monitored Anesthesia Care Patient Profile: This is an 78 year old male. Complications: No immediate complications. Procedure: Pre-Anesthesia Assessment: - Prior to the procedure, a History and Physical was performed, and patient medications and allergies were reviewed. The patient's tolerance of previous anesthesia was also reviewed. The risks and benefits of the procedure and the sedation options and risks were discussed with the patient. All questions were answered, and informed consent was obtained. Prior Anticoagulants: The patient has taken no anticoagulant or antiplatelet agents. ASA Grade Assessment: Per anesthesia. After reviewing the risks and benefits, the patient was deemed in satisfactory condition to undergo the procedure. After obtaining informed consent, the endoscope was passed under direct vision. Throughout the procedure, the patient's blood pressure, pulse, and oxygen saturations were monitored continuously. The Colonoscope was introduced through the mouth, and advanced to the second part of duodenum. The upper GI endoscopy was accomplished without difficulty. The patient tolerated the procedure well. Scope In: 8:19:22 AM Scope Out: 8:23:43 AM Total Procedure Duration Time 0 hours 4 minutes 21 seconds Findings: The Z-line was variable and was found 43 cm from the incisors. There was a small lipoma in the gastric antrum. Striped mildly erythematous mucosa without bleeding was found in the gastric antrum. Biopsies were taken with a cold forceps for histology. Biopsies were taken with a cold forceps for Helicobacter pylori testing. The cardia and gastric fundus were normal on retroflexion. Impression: - Z-line variable, 43 cm from the incisors. - Gastric lipoma. - Erythematous mucosa in the antrum. Biopsied. Recommendation: - Await pathology results. - Discharge patient to home. - Resume previous diet. - Continue present medications. Procedure Code(s): --- Professional --- 13958, Esophagogastroduodenoscopy, flexible, transoral; with biopsy, single or multiple Diagnosis Code(s): --- Professional --- K22.89, Other specified disease of esophagus D17.5, Benign lipomatous neoplasm of intra-abdominal organs K31.89, Other diseases of stomach and duodenum D50.9, Iron deficiency anemia, unspecified CPT copyright 2021 [employer]. All rights reserved. The codes documented in this report are preliminary and upon hcc coders review may be revised to meet current compliance requirements. MD Lilly Sebastian MD 10/20/2023 8:57:18 AM This report has been signed electronically. Number of Addenda: 0 Note Initiated On: 10/20/2023 8:09 AM
--- NOTE | 2023-10-20 08:57 | OP.CCLET_ITS ---
10/20/2023 Reema Myers [facility] [address] [address] Re : Upper GI endoscopy procedure for Aj Serrano Dear Dr. Myers This procedure was performed on Friday, October 20, 2023. My impressions and recommendations are as follows: Impressions : - Z-line variable, 43 cm from the incisors. - Gastric lipoma. - Erythematous mucosa in the antrum. Biopsied. Recommendations : - Await pathology results. - Discharge patient to home. - Resume previous diet. - Continue present medications. My findings are described in the full procedure note, which is enclosed. If I can be of further assistance, please feel free to contact me at Doctor phone number(s): , Work: . Sincerely, MD Lilly Sebastian MD 10/20/2023 8:57:18 AM This report has been signed electronically.
[2023-10-20 09:00] VITALS: BP 114/71; BP 80/50; PULSE 71; RESP 16; O2SAT 100
--- NOTE | 2023-10-20 09:03 | OP.COLON_ITS ---
Patient Name: Aj Serrano Procedure Date: 10/20/2023 8:23 AM Date of : 1945 Age: 78 Procedure: Colonoscopy Indications: Iron deficiency anemia Providers: Lilly Navarrete MD Medicines: Monitored Anesthesia Care Patient Profile: This is an 78 year old male. Last Colonoscopy: more than 10 years ago. Complications: No immediate complications. Procedure: Pre-Anesthesia Assessment: - Prior to the procedure, a History and Physical was performed, and patient medications and allergies were reviewed. The patient's tolerance of previous anesthesia was also reviewed. The risks and benefits of the procedure and the sedation options and risks were discussed with the patient. All questions were answered, and informed consent was obtained. Prior Anticoagulants: The patient has taken no anticoagulant or antiplatelet agents. ASA Grade Assessment: Per anesthesia. After reviewing the risks and benefits, the patient was deemed in satisfactory condition to undergo the procedure. After I obtained informed consent, the scope was passed under direct vision. Throughout the procedure, the patient's blood pressure, pulse, and oxygen saturations were monitored continuously. The Colonoscope was introduced through the anus and advanced to the cecum, identified by the appendiceal orifice, ileocecal valve and palpation. The colonoscopy was performed without difficulty. The patient tolerated the procedure well. The quality of the bowel preparation was good. Scope In: 8:25:27 AM Scope Withdrawal Time 0 hours 15 minutes 58 seconds Scope Out: 8:45:56 AM Total Procedure Duration Time 0 hours 20 minutes 29 seconds Findings: Hemorrhoids were found on perianal exam. Non-bleeding external and internal hemorrhoids were found. The hemorrhoids were moderate and Grade I (internal hemorrhoids that do not prolapse). Three semi-pedunculated polyps were found in the transverse colon and ascending colon. The polyps were less than 5 mm in size. These polyps were removed with a hot snare. Resection and retrieval were complete. Four sessile polyps were found in the rectum, transverse colon and ascending colon. The polyps were less than 5 mm in size. These polyps were removed with a cold biopsy forceps. Resection and retrieval were complete. A single small-mouthed diverticulum was found in the sigmoid colon. The exam was otherwise without abnormality. Impression: - Hemorrhoids found on perianal exam. - Non-bleeding external and internal hemorrhoids. - Three less than 5 mm polyps in the transverse colon and in the ascending colon, removed with a hot snare. Resected and retrieved. - Four less than 5 mm polyps in the rectum, in the transverse colon and in the ascending colon, removed with a cold biopsy forceps. Resected and retrieved. - Diverticulosis in the sigmoid colon. - The examination was otherwise normal. Recommendation: - Discharge patient to home. - Resume previous diet. - Continue present medications. - Await pathology results. - Repeat colonoscopy based on pathology and overall health at the time of repeat - Repeat colonoscopy is recommended. The colonoscopy date will be determined after pathology results from today's exam become available for review. Procedure Code(s): --- Professional --- 77007, Colonoscopy, flexible; with removal of tumor(s), polyp(s), or other lesion(s) by snare technique 18637, 59, Colonoscopy, flexible; with biopsy, single or multiple Diagnosis Code(s): --- Professional --- K64.0, First degree hemorrhoids D12.8, Benign neoplasm of rectum D12.3, Benign neoplasm of transverse colon (hepatic flexure or splenic flexure) D12.2, Benign neoplasm of ascending colon D50.9, Iron deficiency anemia, unspecified K57.30, Diverticulosis of large intestine without perforation or abscess without bleeding CPT copyright 2021 [employer]. All rights reserved. The codes documented in this report are preliminary and upon wood and wood products labourer review may be revised to meet current compliance requirements. MD Lilly Sebastian MD 10/20/2023 9:02:58 AM This report has been signed electronically. Number of Addenda: 0 Note Initiated On: 10/20/2023 8:23 AM
--- NOTE | 2023-10-20 09:03 | OP.CCLET_ITS ---
10/20/20[address]ema [address] [facility] [address] [address] Re : Colonoscopy procedure for Aj Serrano Dear Dr. Myers This procedure was performed on Friday, October 20, 2023. My impressions and recommendations are as follows: Impressions : - Hemorrhoids found on perianal exam. - Non-bleeding external and internal hemorrhoids. - Three less than 5 mm polyps in the transverse colon and in the ascending colon, removed with a hot snare. Resected and retrieved. - Four less than 5 mm polyps in the rectum, in the transverse colon and in the ascending colon, removed with a cold biopsy forceps. Resected and retrieved. - Diverticulosis in the sigmoid colon. - The examination was otherwise normal. Recommendations : - Discharge patient to home. - Resume previous diet. - Continue present medications. - Await pathology results. - Repeat colonoscopy based on pathology and overall health at the time of repeat - Repeat colonoscopy is recommended. The colonoscopy date will be determined after pathology results from today's exam become available for review. My findings are described in the full procedure note, which is enclosed. If I can be of further assistance, please feel free to contact me at Doctor phone number(s): , Work: . Sincerely, MD Lilly Sebastian MD 10/20/2023 9:02:58 AM This report has been signed electronically.
[2023-10-20 09:07] VITALS: BP 108/67; BP 114/71; PULSE 72; RESP 16; TEMP 35.9; O2SAT 94
--- NOTE | 2023-10-20 09:15 | IMM_PTH ---
PATIENT: ANJUM GILBERT LOC: EN U#:[id number] AGE/SX: 78/M ROOM: RE10/20/[address]: Dr. Lilly Navarrete MD : 1945 BED: DIS: 10/20/2023 SPEC #: [id number] RECD: 10/20/23 12:03 STATUS: SHERLEY REChelsey #: [id number] ARIC: 10/20/23 09:[address]: Lilly Navarrete DEPT: IMMUNOHISTOCHEMISTRY RECD BY: Kobe Rangel ENTERED: 10/20/23 12:05 SP TYPE: IMMUNO OTHR DR: Dr. Reema Myers MD Tissues: A - Stomach, NOS Procedures: H Pylori (initial) PHYSICIAN & INSTITUTION [place] [address] SPECIMEN INFORMATION: Tissue Source: A- Antrum biopsy Clinical Info: Anemia Specimen Number: [id number] CPT code: 85959 METHODOLOGY: Deparaffinized sections of prefer/formalin-fixed tissue or PAP/DQ stained slides are incubated with monoclonal/polyclonal antibodies/oligonucleotide probes. Localization is made via biotin free immunoperoxidase method. Appropriate controls are performed and reacted as expected. Results on target cell population are indicated in the following table: RESULTS: ANTIBODY / CLONE RESULT Block A H Pylori (polyclonal) negative These tests were developed and their performance characteristics determined by [facility]. They may not have been cleared or approved by the U.S. Food and Drug Administration. The FDA has determined that such clearance or approval is not necessary. The above immunohistochemical/dualISH markers are ordered and reviewed by the Pathologist. INTERPRETATION: A. Antrum, biopsy: Negative for Helicobacter pylori organisms. LAURA/ 10/21/2023
--- NOTE | 2023-10-20 09:15 | EGD_PTH ---
PATIENT: ANJUM GILBERT LOC: EN U#:[id number] AGE/SX: 78/M ROOM: RE10/20/[address]: Dr. Lilly Navarrete MD : 1945 BED: DIS: 10/20/2023 SPEC #: [id number] RECD: 10/20/23 10:43 STATUS: SHERLEY CINDY #: [id number] ARIC: 10/20/23 09:[address]: Lilly Navarrete DEPT: SURGICAL PATHOLOGY RECD BY: Jazmin Bowen ENTERED: 10/20/23 11:37 SP TYPE: EGD BIOPSY AIDE DR: Dr. Reema Myers MD Tissues: A - Gastric mucous membrane B - Ascending colon C - Transverse colon D - Rectum, NOS Procedures: Surgery Specimen Level IV HEADER OPERATION: Colonoscopy with biopsies and polypectomy, EGD with biopsies PRE-OP DIAGNOSIS: Anemia TISSUE SUBMITTED: A- Antrum biopsy, B- Ascending colon polyp x2, C- Transverse colon biopsies and polypectomy, D- Rectum polyp biopsy MICROSCOPIC DIAGNOSIS A. Antrum, biopsy: Mild gastritis. See microscopic description and comment. B. Ascending colon polypx2, polypectomy: Fragments of tubular adenoma. C. Transverse colon, biopsy and polypectomy: Fragments of tubular adenoma. D. Rectum polyp, biopsy: Fragments of hyperplastic polyp. LAURA/ 10/21/2023 COMMENT A. The results of immunohistochemistry for Helicobacter pylori will be reported separately ([id number]). MICROSCOPIC DESCRIPTION Slides are reviewed. A. The specimen shows fragments of gastric mucosa with chronic inflammatory cell infiltrates in the lamina propria consisting of lymphocytes and plasma cells, consistent with mild chronic gastritis. GROSS DESCRIPTION A. Received in fixative is one container labeled with the patient's name and designated Antrum biopsy. The specimen consists of one irregular fragment of light cedillo soft tissue that measures 0.4 x 0.4 x 0.1 cm. The specimen is totally submitted in one cassette. B. Received in fixative is one container labeled with the patient's name and designated Ascending colon polypx2. The specimen consists of multiple irregular fragments of light cedillo soft tissue that in aggregate measure 2.0 x 0.3 x 0.1 cm. The specimen is totally submitted in one cassette. C. Received in fixative is one container labeled with the patient's name and designated Transverse polyp biopsy x4. The specimen consists of multiple irregular fragments of light cedillo soft tissue that in aggregate measure 2.0 x 0.5 x 0.1 cm. The specimen is totally submitted in one cassette. D. Received in fixative is one container labeled with the patient's name and designated Rectum polyp biopsy. The specimen consists of multiple irregular fragments of light cedillo soft tissue that in aggregate measure 1.0 x 0.2 x 0.1 cm. The specimen is totally submitted in one cassette. Govind 10/20/23 TC:1 CPT:71093t0
[2023-10-20 09:23] VITALS: BP 114/71
== END 2023-10-20 09:46 | disposition home or self-care (01) ==
LOC: EN 07:38 → AC 07:39
PROVIDERS: PCP Family Medicine; Referring Provider Family Medicine; Visit Provider Surgery
PROC: 0DJD8ZZ Inspection of Lower Intestinal Tract, Via Natural or Artificial Opening Endoscopic (ICD-10-PCS; CPT 45378; principal; 2023-10-20 09:10)
DX: D50.9 Iron deficiency anemia, unspecified (principal); I48.91 Unspecified atrial fibrillation; Z87.891 Personal history of nicotine dependence; K57.30 Diverticulosis of large intestine without perforation or abscess without bleeding; K22.89 Other specified disease of esophagus; D17.5 Benign lipomatous neoplasm of intra-abdominal organs; K31.89 Other diseases of stomach and duodenum; K64.0 First degree hemorrhoids; D12.8 Benign neoplasm of rectum; D12.3 Benign neoplasm of transverse colon; D12.2 Benign neoplasm of ascending colon; I10 Essential (primary) hypertension; N40.0 Benign prostatic hyperplasia without lower urinary tract symptoms; E78.5 Hyperlipidemia, unspecified; K29.70 Gastritis, unspecified, without bleeding
CPT/HCPCS: 43239; 45385; 45380; 88305; 88342; J7120; J2405

== ENCOUNTER → 2023-10-21 | Outpatient (CLI) | payer MEDICARE, OTHER, SELFPAY ==
--- NOTE | 2023-10-21 13:56 | ECHOD_ITS ---
Reason For Study: SOB Procedure This was a 2D Doppler, Color Flow transthoracic echocardiogram. Exam performed in department. Left Ventricle Normal LV size. Mild concentric left ventricular hypertrophy. The estimated ejection fraction is 55 %. No regional wall motion abnormalities noted. Right Ventricle Normal RV size. Normal systolic function. Atria The left atrium is moderately enlarged. The right atrium is mildly enlarged. Mitral Valve Normal mitral valve. Tricuspid Valve Normal tricuspid valve. Mild to moderate (1-2+) tricuspid valve insufficiency. Pulmonary artery systolic pressure is 45 mmHg. Aortic Valve Trisinus/trileaflet aortic valve. Mild focal aortic valve thickening. Pulmonic Valve Normal pulmonic valve. Mild (1+) pulmonic valve insufficiency. Great Vessels Mild to moderately dilated aortic root. The pulmonary artery is normal size. Inferior vena cava collapse with respiration. Pericardium/Pleural No pericardial effusion. MMode/2D Measurements & Calculations LVIDd: 4.9 cm IVSd: 1.2 cm Ao root diam: 4.0 cm LVIDs: 3.0 cm LVPWd: 1.2 cm RVDd: 3.8 cm FS: 37.6 % LAV(MOD-bp): 121.0 ml LVAd ap4: 29.0 cm2 SV(MOD-sp4): 49.8 ml LAV(MOD-bp) Indexed: 52.6 ml/m2 LVLd ap4: 7.9 cm LAV(MOD-sp2): 118.5 ml EDV(MOD-sp4): 92.4 ml LAV(MOD-sp4): 120.1 ml EDV(sp4-el): 90.4 ml LVAs ap4: 17.8 cm2 LVLs ap4: 6.9 cm ESV(MOD-sp4): 42.7 ml ESV(sp4-el): 39.1 ml EF(MOD-sp4): 53.8 % EF(sp4-el): 56.7 % SV(sp4-el): 51.2 ml LA A4 area: 33.0 cm2 LA dimension(2D): 4.7 cm RA A4 area: 26.1 cm2 TAPSE: 1.9 cm Doppler Measurements & Calculations MV E max dom: 103.0 cm/sec Lat A' dom: 10.7 cm/sec Med Peak E' Dom: 8.6 cm/sec E/E' med: 11.9 Ao V2 max: 120.6 cm/sec LV V1 max: 99.9 cm/sec PA V2 max: 92.1 cm/sec Ao max P.8 mmHg LV V1 max P.0 mmHg PA V2 mean: 59.8 cm/sec Ao V2 mean: 87.7 cm/sec LV V1 mean P.3 mmHg Ao mean P.3 mmHg LV V1 mean: 72.3 cm/sec Ao V2 VTI: 24.7 cm LV V1 VTI: 20.1 cm AV (velocity ratio): 0.81 TR max dom: 318.5 cm/sec PI dec slope: 80.0 cm/sec2 TR max P.6 mmHg ECHO/Echo Complete Interpretation Summary Normal LV size. Mild concentric left ventricular hypertrophy. The estimated ejection fraction is 55 %. No regional wall motion abnormalities noted. Pulmonary artery systolic pressure is 45 mmHg. Mild to moderately dilated aortic root. The left atrium is moderately enlarged. Ordering Physician: Zaira Mccormack Referring Physician: Reema Myers Performed By: Unique Gupta, NAY, RVT
== END | disposition home or self-care (01) ==
LOC: CVS 13:54
PROVIDERS: PCP Family Medicine; Referring Provider Physician Assistant Medical; Visit Provider Physician Assistant Medical
DX: R06.02 Shortness of breath (principal)
CPT/HCPCS: 93306

== ENCOUNTER → 2023-11-01 | Outpatient (CLI) | payer MEDICARE, OTHER, SELFPAY ==
[2023-11-01] MEDS: Zolpidem Tartrate 5 MG Tablet PO (22:00)
== END | disposition home or self-care (01) ==
LOC: SL 20:03
PROVIDERS: PCP Family Medicine; Referring Provider Nurse Practitioner Acute Care; Visit Provider Nurse Practitioner Acute Care
DX: G47.31 Primary central sleep apnea (principal)
CPT/HCPCS: 95811

== ENCOUNTER 2023-11-04 12:15 | Inpatient (IN) | payer MEDICARE, OTHER, SELFPAY ==
[2023-11-04] VITALS (30 sets, daily range): BP systolic 87–124; BP diastolic 57–90; PULSE 63–84; RESP 12–22; TEMP 35.6–37.1; O2SAT 93–100; BMI 22.3; BMI 31.6
--- NOTE | 2023-11-04 12:55 | EX.ED.DYSGE1 ---
HPI <KRISTIAN Lyons - Last Filed: 11/04/23 15:19> History of Present Illness Chief Complaint: GI Bleed Narrative Narrative: Patient presenting due to shortness of breath. He reports that he began feeling short of breath in the summer 2022 and has gotten progressively worse since then, especially over the last few weeks. He recently had a echocardiogram that showed an EF of 55%. He reports that he is now only able to walk about 50 feet without getting short of breath, even showering makes him feel this way. He does have a PMH of hypertension, atrial fibrillation on Eliquis, and EDEN. He recently had a sleep study but has not yet started any treatment for his sleep apnea. He has had intermittent black stools over the past few weeks, he was found to have iron deficiency anemia and had both a colonoscopy and endoscopy recently, several polyps were removed but otherwise was told his tests were unremarkable. He last had a black stool yesterday and this morning it was brown. He also endorses swelling to his bilateral lower extremities that he has had over the past few weeks that started after going on a long car ride to [place]. He denies any fevers, chills, chest pain, abdominal pain, nausea, or vomiting. PFSH <KRISTIAN Lyons - Last Filed: 11/04/23 15:19> PFS Medical History Alcohol use Anemia Arthritis Back pain BPH (benign prostatic hyperplasia) Burning pain Cardiology follow-up encounter COPD (chronic obstructive pulmonary disease) Difficulty swallowing Essential hypertension High cholesterol History of cardioversion History of echocardiogram History of edema History of pain when walking History of stress test Hyperlipidemia New onset atrial fibrillation (03/14/21) Obesity Prostate disease Restless legs Self-catheterizes urinary bladder Shortness of breath on exertion Syncope Tobacco dependence Wears glasses Wears hearing aid Home Medications omega-3 fatty acids-fish oil 340 mg-1,000 mg capsule 3 ea PO BID supplement 05/31/19 [History Last Taken 10/15/23] apixaban 5 mg tablet (Eliquis) 5 mg PO BID #60 tabs 03/18/21 [Rx Last Taken 10/12/23] atorvastatin 40 mg tablet 40 mg PO QHS 03/18/21 [History Last Taken Unknown] amiodarone 200 mg tablet 200 mg PO DAILY #90 tabs 02/02/23 [Rx Last Taken Unknown] metoprolol tartrate 50 mg tablet 50 mg PO BID this is a dose increase #180 tabs 02/02/23 [Rx Last Taken 10/20/23 07:00] docusate sodium 100 mg capsule 100 mg PO BID 07/01/23 [History Last Taken Unknown] Allergy/AdvReac Type Severity Reaction Status Date / Time No Known Allergies Allergy Verified 11/04/23 12:17 Family History Mother Heart disease Hypertension Thyroid disorder Father Heart disease Brother Hypertension Surgical History History of appendectomy History of transurethral resection of prostate Hx of left cataract extraction Hx of right cataract extraction Social History (Updated 11/04/23 @ 13:58 by Suzanna Montenegro) household members: spouse housing: house Smoking Status: Former smoker quit date: 02/26/21 alcohol intake: current alcohol intake frequency: a few times a month ROS <KRISTIAN Lyons - Last Filed: 11/04/23 15:19> ROS ED Constitutional Constitutional ED: Denies chills or fever(s) Cardiovascular Cardiovascular: Denies chest pain or palpitations Respiratory/Chest Respiratory/Chest: Reports dyspnea on exertion; Denies cough or wheezing Gastrointestinal Gastrointestinal: Reports melena; Denies abdominal pain, nausea or vomiting Genitourinary Genitourinary ED: Denies dysuria, hematuria or urinary urgency Musculoskeletal Musculoskeletal: Denies arthralgias or myalgias Integumentary Denies rash Neurologic Neurologic: Denies weakness EXAM <KRISTIAN Lyons - Last Filed: 11/04/23 15:19> Physical Exam Const Vital Signs: 11/04/23 12:16 11/04/23 12:16 11/04/23 13:57 Temperature 96.1 F L Temperature Source Temporal Pulse Rate 67 71 66 Respiratory Rate 14 16 17 Blood Pressure 87/57 L 108/57 L 107/70 Blood Pressure Mean 67 74 82 Pulse Ox 100 100 100 Oxygen Delivery Method Room Air 11/04/23 14:00 11/04/23 15:00 11/04/23 15:20 Temperature 96.1 F L Temperature Source Pulse Rate 70 70 70 Respiratory Rate 20 H 17 17 Blood Pressure 104/65 119/72 119/72 Blood Pressure Mean 78 87 87 Pulse Ox 97 97 97 Oxygen Delivery Method 11/04/23 13:25 11/04/23 13:30 11/04/23 13:45 Temperature Temperature Source Pulse Rate 79 74 73 Respiratory Rate 20 H 18 18 Blood Pressure Blood Pressure Mean Pulse Ox 98 99 100 Oxygen Delivery Method 11/04/23 13:56 11/04/23 14:00 11/04/23 14:15 Temperature Temperature Source Pulse Rate 65 68 72 Respiratory Rate 18 18 20 H Blood Pressure 107/70 104/65 101/77 Blood Pressure Mean 82 77 86 Pulse Ox 100 Oxygen Delivery Method Room Air 11/04/23 14:30 11/04/23 14:45 11/04/23 15:00 Temperature Temperature Source Pulse Rate 67 73 Respiratory Rate 21 H 19 H Blood Pressure 106/77 119/90 H 119/72 Blood Pressure Mean 87 100 86 Pulse Ox Oxygen Delivery Method 11/04/23 15:15 11/04/23 15:30 11/04/23 15:45 Temperature Temperature Source Pulse Rate 79 64 Respiratory Rate 22 H 17 Blood Pressure 101/68 114/71 104/69 Blood Pressure Mean 78 83 81 Pulse Ox Oxygen Delivery Method Room Air 11/04/23 16:00 Temperature Temperature Source Pulse Rate 68 Respiratory Rate 18 Blood Pressure 111/74 Blood Pressure Mean 87 Pulse Ox 93 Oxygen Delivery Method Room Air Positive well nourished, well developed and no apparent distress General Appearance ED: well developed HEENT Reports normocephalic and head/scalp atraumatic Mouth ED: Yes moist mucous membranes normal Eyes PERRL and EOMs intact bilaterally Neck full ROM and supple Chest Wall inspection of chest normal Resp normal respiratory effort and clear to auscultation bilaterally Cardio regular rate and regular rhythm GI soft to palpation, non-tender, non-distended and no masses GI Narrative: Rectal exam: Performed with nurse in the room, normal sphincter tone, brown stool Back/Spine normal ROM and normal to inspection Extremity full ROM Extremity Narrative: Minimal equal nonpitting edema to the bilateral lower extremities at the feet and ankles. Neuro oriented x3, CN's II-XII intact bilaterally, moves all extremities, no focal motor deficits and no sensory deficits noted Sensorium / Orientation: awake and alert Psych mental status grossly normal and thought process normal Skin no rashes or lesions noted and no wounds <Dr. Fitz Олег, DO - Last Filed: 11/04/23 16:41> Physical Exam Const Vital Signs: 11/04/23 12:16 11/04/23 12:16 11/04/23 13:57 Temperature 96.1 F L Temperature Source Temporal Pulse Rate 67 71 66 Respiratory Rate 14 16 17 Blood Pressure 87/57 L 108/57 L 107/70 Blood Pressure Mean 67 74 82 Pulse Ox 100 100 100 Oxygen Delivery Method Room Air 11/04/23 14:00 11/04/23 15:00 11/04/23 15:20 Temperature 96.1 F L Temperature Source Pulse Rate 70 70 70 Respiratory Rate 20 H 17 17 Blood Pressure 104/65 119/72 119/72 Blood Pressure Mean 78 87 87 Pulse Ox 97 97 97 Oxygen Delivery Method 11/04/23 13:25 11/04/23 13:30 11/04/23 13:45 Temperature Temperature Source Pulse Rate 79 74 73 Respiratory Rate 20 H 18 18 Blood Pressure Blood Pressure Mean Pulse Ox 98 99 100 Oxygen Delivery Method 11/04/23 13:56 11/04/23 14:00 11/04/23 14:15 Temperature Temperature Source Pulse Rate 65 68 72 Respiratory Rate 18 18 20 H Blood Pressure 107/70 104/65 101/77 Blood Pressure Mean 82 77 86 Pulse Ox 100 Oxygen Delivery Method Room Air 11/04/23 14:30 11/04/23 14:45 11/04/23 15:00 Temperature Temperature Source Pulse Rate 67 73 Respiratory Rate 21 H 19 H Blood Pressure 106/77 119/90 H 119/72 Blood Pressure Mean 87 100 86 Pulse Ox Oxygen Delivery Method 11/04/23 15:15 11/04/23 15:30 11/04/23 15:45 Temperature Temperature Source Pulse Rate 79 64 Respiratory Rate 22 H 17 Blood Pressure 101/68 114/71 104/69 Blood Pressure Mean 78 83 81 Pulse Ox Oxygen Delivery Method Room Air 11/04/23 16:00 Temperature Temperature Source Pulse Rate 68 Respiratory Rate 18 Blood Pressure 111/74 Blood Pressure Mean 87 Pulse Ox 93 Oxygen Delivery Method Room Air MDM <KRISTIAN Lyons - Last Filed: 11/04/23 15:19> MDM MDM Narrative Medical decision making narrative: Patient presenting with shortness of breath on exertion he has had chronically but has gotten worse over the past few weeks. He is now only able to ambulate about 50 feet before he feels short of breath. He recently had a colonoscopy and endoscopy on 10/[address] Navarrete, I did review these reports, he had several polyps removed and a biopsy was taken. Echo was performed 10/23 with an EF of 55%. Differentials include CHF exacerbation versus GI bleed. Cardiac workup obtained, troponin WNL, BNP slightly elevated at 254, chest x-ray negative for any acute findings. I did perform a rectal examination, brown stool noted but stool occult is positive. H&H is 5.5 and 19.2, he will be transfused 2 units of blood. He is on Eliquis. The attending did speak with Dr. Hussein, he will admit patient under his service for further workup and treatment. Patient admitted in stable condition. Lab Data Attestation: I reviewed the patient's lab results. Lab results narrative: H&H 5.5 and 19.2, BUN 22, BNP 254, troponin 11 Labs: Laboratory Results - last 24 hr 11/04/23 11/04/23 13:45 15:05 WBC 8.7 RBC 1.94 L Hgb 5.5 L* Hct 19.2 L MCV 99.0 H MCH 28.4 MCHC 28.6 L RDW Std Deviation 61.5 H RDW Coeff of Christina 17.2 H Plt Count 160 MPV 10.9 Immature Gran % (Auto) [employer] Neut % (Auto) [employer] Lymph % (Auto) [employer] Hughes % (Auto) [employer] Eos % (Auto) [employer] Baso % (Auto) [employer] Absolute Neuts (auto) 6.1 Absolute Lymphs (auto) 1.00 Total Counted 100 Neutrophils % (Manual) 68 Band Neutrophils % 2 Lymphocytes % (Manual) 12 L Monocytes % (Manual) 4 Eosinophils % (Manual) 5 Basophils % (Manual) 2 H Metamyelocytes % 3 H Myelocytes % 1 H Promyelocytes % 3 H Nucleated RBC % [employer] Diff Path Review May foll Platelet Estimate ADEQUATE RBC Morphology NORM C+C Sodium 140 Potassium 4.3 Chloride 109 H Carbon Dioxide 26.0 Anion Gap 5 BUN 22 H Creatinine 1.17 Est GFR (MDRD) Af Amer 77 Est GFR (MDRD) Non-Af 64 BUN/Creatinine Ratio 18.8 Glucose 165 H Calcium 8.7 Total Bilirubin 0.50 AST 13 L ALT 21 Alkaline Phosphatase 46 Troponin I High Sens 11 B-Natriuretic Peptide 254.7 H Total Protein 6.5 Albumin 3.2 Globulin 3.3 Albumin/Globulin Ratio 1.0 Antibody Screen NEGATIVE Crossmatch See Detail Radiography X-Ray: Read by ED Physician Diagnostic Testing: Clinical Impression(s) from Imaging Studies Chest X-Ray 11/04/23 13:16 IMPRESSION: Hyperinflation. Persistent increased interstitial markings at the lung bases suggestive of scarring although there has been some improvement as compared to prior study. Electronically Signed: Brian Duran MD at 13:38 EDT , EKG Initial EKG: Comments: 76 bpm, atrial fibrillation, no ST elevation, reviewed and interpreted by attending ED physician <Dr. Fitz Denney, DO - Last Filed: 11/04/23 16:41> [facility] MDM Narrative Medical decision making narrative: Patient presenting with shortness of breath on exertion he has had chronically but has gotten worse over the past few weeks. He is now only able to ambulate about 50 feet before he feels short of breath. He recently had a colonoscopy and endoscopy on 10/[address] Navarrete, I did review these reports, he had several polyps removed and a biopsy was taken. Echo was performed 10/23 with an EF of 55%. Differentials include CHF exacerbation versus GI bleed. Cardiac workup obtained, troponin WNL, BNP slightly elevated at 254, chest x-ray negative for any acute findings. I did perform a rectal examination, brown stool noted but stool occult is positive. H&H is 5.5 and 19.2, he will be transfused 2 units of blood. He is on Eliquis. The attending did speak with Dr. Hussein, he will admit patient under his service for further workup and treatment. Patient admitted in stable condition. This patient was seen with a PA/[employer] Individually assessed they patient including history and physical. I have reviewed everything on the chart that is available and agree with the documentation provided by the PA[employer] including discussion about the assessment, treatment plan, discussion, and return precautions. Patient presenting with worsening shortness of breath. Recently had low hemoglobins and saw Dr. Cason from for this. Colonoscopy was performed and several biopsies of polyps were performed as well. Patient with acutely lower hemoglobin worsening symptoms. Patient was typed, screened, crossmatch 2 units. Hemoglobin 5.5. Patient with history of CHF so we did do cardiac evaluation and his BNP is 254.7. High-sensitivity troponin is 11. EKG sinus rhythm 76 bpm without sign ischemic change. Chest x-ray my interpretation shows nothing acute. Radiology interpretation agrees. Discussed the case with Dr. Hussein who is on-call for surgery. Patient will be admitted to medicine. Impression: 1. Acute blood loss anemia 2. GI bleed 3. Dyspnea 4. Lightheadedness Lab Data Labs: Laboratory Results - last 24 hr 11/04/23 11/04/23 13:45 15:05 WBC 8.7 RBC 1.94 L Hgb 5.5 L* Hct 19.2 L MCV 99.0 H MCH 28.4 MCHC 28.6 L RDW Std Deviation 61.5 H RDW Coeff of Christina 17.2 H Plt Count 160 MPV 10.9 Immature Gran % (Auto) [employer] Neut % (Auto) [employer] Lymph % (Auto) [employer] Hughes % (Auto) [employer] Eos % (Auto) [employer] Baso % (Auto) [employer] Absolute Neuts (auto) 6.1 Absolute Lymphs (auto) 1.00 Total Counted 100 Neutrophils % (Manual) 68 Band Neutrophils % 2 Lymphocytes % (Manual) 12 L Monocytes % (Manual) 4 Eosinophils % (Manual) 5 Basophils % (Manual) 2 H Metamyelocytes % 3 H Myelocytes % 1 H Promyelocytes % 3 H Nucleated RBC % [employer] Diff Path Review May foll Platelet Estimate ADEQUATE RBC Morphology NORM C+C Sodium 140 Potassium 4.3 Chloride 109 H Carbon Dioxide 26.0 Anion Gap 5 BUN 22 H Creatinine 1.17 Est GFR (MDRD) Af Amer 77 Est GFR (MDRD) Non-Af 64 BUN/Creatinine Ratio 18.8 Glucose 165 H Calcium 8.7 Total Bilirubin 0.50 AST 13 L ALT 21 Alkaline Phosphatase 46 Troponin I High Sens 11 B-Natriuretic Peptide 254.7 H Total Protein 6.5 Albumin 3.2 Globulin 3.3 Albumin/Globulin Ratio 1.0 Antibody Screen NEGATIVE Crossmatch See Detail Radiography Diagnostic Testing: Clinical Impression(s) from Imaging Studies Chest X-Ray 11/04/23 13:16 IMPRESSION: Hyperinflation. Persistent increased interstitial markings at the lung bases suggestive of scarring although there has been some improvement as compared to prior study. Electronically Signed: Brian Duran MD at 13:38 EDT , Discharge Plan Dx/Rx/DC Orders Clinical Impression: Leg edema, Shortness of breath, longterm current use of anticoagulant, Longstanding persistent atrial fibrillation, Acute GI bleeding Disposition Disposition: Acute Care Hospital [facility]
--- NOTE | 2023-11-04 13:16 | RAD_ITS ---
STUDY: X-RAY CHEST REASON FOR EXAM: Male, 78 years old. SOB TECHNIQUE: Single AP portable view of the chest. COMPARISON: Comparison is made with prior study dated September 09, 2023. FINDINGS: EKG electrodes are seen. Persistent increased markings at the lung bases with areas of confluence suggestive of bibasilar scarring. There has been improvement as compared to prior study. There is blunting of the posterior costophrenic angles bilaterally. Normal size heart. Normal mediastinum and michelle. There is prominence of the pulmonary hilar arteries without peripheral pulmonary vascular congestion, suggesting pulmonary hypertension. There is atherosclerotic calcification of the aortic arch with tortuosity. There are diffuse degenerative changes of the visualized thoracic spine. Normal visualized ribs, clavicles, and shoulders. There is no demonstrated abnormality of the visualized soft tissue structures of the upper abdomen. RAD/Chest PA and Lateral IMPRESSION: Hyperinflation. Persistent increased interstitial markings at the lung bases suggestive of scarring although there has been some improvement as compared to prior study. Electronically Signed: Brian Duran MD at 13:38 EDT ,
[2023-11-04 13:59] LABS: Hematocrit 19.2 % (40-54); Mean Corp Hgb Conc 28.6 g/dL (32-36); Mean Corpuscular Hgb 28.4 pg (27.0-32.0); Mean Platelet Vol. 10.9 fl (6.2-12.0); POSITIVE COUNT YES; POSITIVE MORPHOLOGY YES; Platelet Count 160 K/mm3 (150-450); RBC Distribution Width CV 17.2 % (11.6-14.6); RBC Distribution Width SD 61.5 fl (35.1-43.9); Red Blood Count 1.94 M/mm3 (4.6-6.2); White Blood Count 8.7 K/mm3 (4.4-11.0)
[2023-11-04 14:05] LABS: Hemoglobin 5.5 g/dL (13.0-16.5)
[2023-11-04 14:06] LABS: Differential Indicated MANUAL DIFF
[2023-11-04 14:15] LABS: AST(SGOT) 13 U/L (15-37); Alanine Aminotransfer ALT/SGPT 21 U/L (16-61); Albumin, Serum 3.2 g/dL (3.2-5.0); Alkaline Phosphatase 46 U/L (45-117); Anion Gap 5 (5-15); BUN 22 mg/dL (7-18); BUN/Creat Ratio 18.8 RATIO (10-20); Calcium,Total 8.7 mg/dL (8.5-10.1); Chloride 109 mmol/L (98-107); Creatinine, Serum 1.17 mg/dL (0.70-1.30); EST Glomerular Filtration Rate 64 mL/min (>60); Est Glom Filt Rate - Afr Amer 77 mL/min (>60); Globulin 3.3 g/dL (2.2-4.2); Glucose 165 mg/dL (74-106); Potassium 4.3 mmol/L (3.5-5.1); Protein, Total 6.5 g/dL (6.4-8.2); Sodium Level 140 mmol/L (136-145); Troponin-I HS 11 pg/mL (3.0-78.0)
[2023-11-04 14:29] LABS: BNP,B-Type NATRIURETIC PEPTIDE 254.7 pg/mL (0-100)
--- NOTE | 2023-11-04 14:30 | CON.PCM.HO_ITS ---
Assessment & Plan Assessment/Plan (1) Acute GI bleeding: (2) Anemia: PLAN: Plan Patient is an 78-year-old male who presented [facility] ED on 11/04/2023 with worsening shortness of breath with exertion. Found to be severely anemic presumed secondary to acute blood loss from GI bleed, admitted under the general surgery service. Medicine consulted for medical management. 1. Acute blood loss anemia presumed secondary to GI bleed ? General surgery primary. Hemoglobin 5.5 in ED. S/p 2 units of packed red blood cells, repeat hemoglobin pending. Clear liquid diet for now with plan for n.p.o. at midnight and both EGD and colonoscopy tomorrow. Trend CBC daily. SCDs for DVT prophylaxis. 2. A-fib on Eliquis ? Follows with [facility]. Home medications of amiodarone 200 mg sharmin y, Lopressor 50 mg twice daily and Eliquis. Eliquis notably has been held since August when he was found to have new onset anemia. EKG on admit showed normal sinus rhythm, no ST changes. Continue home amiodarone and Lopressor. 3. Mild COPD ? Follows with pulmonology, last office visit was in July. Was noted to have a mild mixed ventilatory defect, no indication for maintenance inhalers at this time. Stable on room air at rest in the ED, breathing comfortably, not in acute exacerbation. No need to order inhalers at this time. 4. EDEN ? Appears that this was recently diagnosed within the last few months, unclear if he is wearing home PAP therapy at this time. Can order PAP therapy as needed. 5. Obesity ? BMI 31 on admit. Complicates hospital course, care and prognosis. 6. Lung nodule ? Follows with pulmonology as noted above. CT chest in August showed stable nodule with plan for follow-up in 12 months. DVT prophylaxis: SCDs Total clinical time spent by myself addressing the patient's medical issues, reviewing all the data, and collaborating with patient's care team: 35 minutes. HPI Consult Data Date of Consult: 11/04/23 HPI Narrative Reason for Consultation: Medical management HPI Narrative: ANJUM GILBERT, is a 78 M who presented to [facility] ED on 11/04/2023 with worsening shortness of breath. Found to have a hemoglobin of 5.5 in the ED. Has history of A-fib on Eliquis. Was recently found to have iron deficiency anemia and had both colonoscopy and endoscopy done by Dr. Navarrete on 10/19. EGD showed erythematous mucosa in the antrum that was biopsied, was otherwise normal. Colonoscopy showed nonbleeding internal and external hemorrhoids, several small polyps that removed, was otherwise normal. Last hemoglobin was 9.8 back on 09/08. Patient reported intermittent black stools over the past few weeks. Last had a black stool yesterday but notes this was followed by a brown stool. Given acute blood loss anemia presumed secondary to GI bleed and that patient recently saw general surgery here, patient was admitted under the general surgery service and medicine was consulted for medical management. Saw patient at the bedside in the ED, present at bedside. Patient was sitting up comfortably in bed, conversing normally, in no acute distress. Patie nt was very pleasant with conversation. He denied any shortness of breath at rest but states that over the past few days he has had significant shortness of breath with fairly minimal exertion. He denies any other significant symptoms at this time. Denies any fevers/chills, chest pain, abdominal pain, nausea or vomiting. Vitals in ED were unremarkable, heart rate normal sinus rhythm in 60s to 70s, normotensive, good oxygen saturations on room air at rest. Labs notable for hemoglobin 5.5, MCV 99, platelets 160, WBC count 8, creatinine 1.17 (at baseline), BMP otherwise benign, HFP benign, BNP 254 (similar to previous). Chest x-ray showed hyperinflation and persistent increased interstitial markings at lung bases slightly improved from previous. Patient was admitted under general surgery service for further management. [facility] Medical History Alcohol use Anemia Arthritis Back pain BPH (benign prostatic hyperplasia) Burning pain Cardiology follow-up encounter COPD (chronic obstructive pulmonary disease) Difficulty swallowing Essential hypertension High cholesterol History of cardioversion History of echocardiogram History of edema History of pain when walking History of stress test Hyperlipidemia New onset atrial fibrillation (03/14/21) Obesity Prostate disease Restless legs Self-catheterizes urinary bladder Shortness of breath on exertion Syncope Tobacco dependence Wears glasses Wears hearing aid Home Medications omega-3 fatty acids-fish oil 340 mg-1,000 mg capsule 3 ea PO BID supplement 05/31/19 [History Last Taken 10/15/23] apixaban 5 mg tablet (Eliquis) 5 mg PO BID #60 tabs 03/18/21 [Rx Last Taken 10/12/23] atorvastatin 40 mg tablet 40 mg PO QHS 03/18/21 [History Last Taken Unknown] amiodarone 200 mg tablet 200 mg PO DAILY #90 tabs 02/02/23 [Rx Last Taken Unknown] metoprolol tartrate 50 mg tablet 50 mg PO BID this is a dose increase #180 tabs 02/02/23 [Rx Last Taken 10/20/23 07:00] docusate sodium 100 mg capsule 100 mg PO BID 07/01/23 [History Last Taken Unknown] Allergy/AdvReac Type Severity Reaction Status Date / Time No Known Allergies Allergy Verified 11/04/23 12:17 Family History Mother Heart disease Hypertension Thyroid disorder Father Heart disease Brother Hypertension Surgical History History of appendectomy History of transurethral resection of prostate Hx of left cataract extraction Hx of right cataract extraction Social History (Updated 11/04/23 @ 13:58 by Suzanna Montenegro) household members: spouse housing: house Smoking Status: Former smoker quit date: 02/26/21 alcohol intake: current alcohol intake frequency: a few times a month ROS Constitutional Constitutional: Reports fatigue; Denies chills, fever(s) or weakness Cardiovascular Cardiovascular: Reports dyspnea on exertion; Denies chest pain, edema, lightheadedness, orthopnea or palpitations Respiratory/Chest Respiratory/Chest: Denies cough, shortness of breath at rest or wheezing Gastrointestinal Gastrointestinal: Reports melena; Denies abdominal pain, hematochezia, nausea or vomiting Musculoskeletal Musculoskeletal: Denies arthralgias, back pain or myalgias Neurologic Neurologic: Denies dizziness, focal weakness or headache(s) Physical Exam Const alert, oriented x3 and no apparent distress Constitutional Narrative: Pleasant elderly male, mildly pale appearing, obese, otherwise sitting up comfortably in bed, conversing normally, in no acute distress. General Appearance: cooperative and comfortable HEENT normocephalic, head/scalp atraumatic, hearing grossly normal bilaterally and nasal mucous membranes and turbinates normal Eyes PERRL, EOMs intact bilaterally and conjunctivae normal Neck full ROM Chest inspection of chest normal Resp normal respiratory effort, normal air movement, no use of accessory muscles and clear to auscultation bilaterally Cardio regular rate, regular rhythm, no murmurs and peripheral pulses 2+ throughout GI normal to inspection, nondistended, normoactive bowel sounds, soft to palpation, non-tender and non-distended Back/Spine normal ROM Extremity normal to inspection, full ROM and no pedal edema Skin no rashes or lesions noted Neuro moves all extremities and no focal motor deficits Speech: speech normal Psych mental status grossly normal Lab / Micro Data 11/04/23 13:45 11/04/23 13:45 Labs: Laboratory Results - last 24 hr 11/04/23 13:45: WBC 8.7, RBC 1.94 L, Hgb 5.5 L*, Hct 19.2 L, MCV 99.0 H, MCH 28.4, MCHC 28.6 L, RDW Std Deviation 61.5 H, RDW Coeff of Christina 17.2 H, Plt Count 160, MPV 10.9, Immature Gran % (Auto) HEALTH CARE SOCIAL WORKER, Neut % (Auto) HEALTH CARE SOCIAL WORKER, Lymph % (Auto) HEALTH CARE SOCIAL WORKER, [place] % (Auto) HEALTH CARE SOCIAL WORKER, Eos % (Auto) HEALTH CARE SOCIAL WORKER, Baso % (Auto) HEALTH CARE SOCIAL WORKER, Nucleated RBC % HEALTH CARE SOCIAL WORKER, Sodium 140, Potassium 4.3, Chloride 109 H, Carbon Dioxide 26.0, Anion Gap 5, BUN 22 H, Creatinine 1.17, Est GFR (MDRD) Af Amer 77, Est GFR (MDRD) Non-Af 64, BUN/Creatinine Ratio 18.8, Glucose 165 H, Calcium 8.7, Total Bilirubin 0.50, AST 13 L, ALT 21, Alkaline Phosphatase 46, Troponin I High Sens 11, B-Natriuretic Peptide 254.7 H, Total Protein 6.5, Albumin 3.2, Globulin 3.3, Albumin/Globulin Ratio 1.0 Micro: Microbiology 11/04/23 12:48 Stool Stool Occult Blood (FANNY) - Final Occult Blood Positive Imaging Radiology Impression Chest X-Ray 11/04/23 13:16 IMPRESSION: Hyperinflation. Persistent increased interstitial markings at the lung bases suggestive of scarring although there has been some improvement as compared to prior study. Electronically Signed: Brian Duran MD at 13:38 EDT , Charges/Coding Visit Charges Inpatient E&M: 16736 Subs Hosp L2
[2023-11-04 14:45] LABS: Basophil 2 % (0-1); Eosinophil 5 % (0-5); Lymphocyte 12 % (19-41); Metamyelocyte 3 % (0-1); Monocyte 4 % (0-10); Myelocyte 1 % (0-0); Neutrophil-Band 2 % (0-5); Neutrophil-Segmented 68 % (47-70); Promyelocyte 3 % (0-0); Red Cell Morphology NORM C+C NORMAL (NORM C&C); Total Cells Counted 100 (MANUAL DIFF)
[2023-11-04 14:46] LABS: Absolute Neutrophil Count 6.1 X10^3/uL (2.0-7.7); Platelet Estimate ADEQUATE (ADEQ)
--- NOTE | 2023-11-04 15:30 | PCM.HP.STD ---
[facility] - General General Date of Admission: 11/04/23 Date of Service: 11/04/23 Chief Complaint: GI bleed [facility] Narrative ANJUM GILBERT, is a 78 M who presents with new onset of fatigue and shortness of breath for several days. Patient recently had an upper and lower scope by Dr. Navarrete on 10/19 for anemia. Findings included hemorrhoids, polyps and diverticulosis, erythema of the mucosa of the antrum and gastric lipoma. Pathology demonstrated mild gastritis, tubular adenoma x 2 and hyperplastic polyp. Patient notes he was diagnosed with iron deficiency anemia just prior to his scopes and was placed on iron. Patient had stopped his iron 1 week prior to the scope and has not returned to taking it. Patient is also taking Eliquis which he restarted 2 or 3 days after his scopes. Patient is on Eliquis for A fib. He denies previous myocardial infarction, stroke or blood clots. He denies abdominal pain. He notes dark, tarry stool. No bright red rectal bleeding. He notes a history of constipation. he noted last BM was today however very small. he notes feeling abdominal distention. he has a history of urinary retention and self-caths at home. Patient's Hgb is 5.5 upon admission. BNP is 254.7. [facility] Medical History Alcohol use Anemia Arthritis Back pain BPH (benign prostatic hyperplasia) Burning pain Cardiology follow-up encounter COPD (chronic obstructive pulmonary disease) Difficulty swallowing Essential hypertension High cholesterol History of cardioversion History of echocardiogram History of edema History of pain when walking History of stress test Hyperlipidemia New onset atrial fibrillation (03/14/21) Obesity Prostate disease Restless legs Self-catheterizes urinary bladder Shortness of breath on exertion Syncope Tobacco dependence Wears glasses Wears hearing aid Home Medications omega-3 fatty acids-fish oil 340 mg-1,000 mg capsule 3 ea PO BID supplement 05/31/19 [History Last Taken 10/15/23] apixaban 5 mg tablet (Eliquis) 5 mg PO BID #60 tabs 03/18/21 [Rx Last Taken 10/12/23] atorvastatin 40 mg tablet 40 mg PO QHS 03/18/21 [History Last Taken Unknown] amiodarone 200 mg tablet 200 mg PO DAILY #90 tabs 02/02/23 [Rx Last Taken Unknown] metoprolol tartrate 50 mg tablet 50 mg PO BID this is a dose increase #180 tabs 02/02/23 [Rx Last Taken 10/20/23 07:00] docusate sodium 100 mg capsule 100 mg PO BID 07/01/23 [History Last Taken Unknown] Allergy/AdvReac Type Severity Reaction Status Date / Time No Known Allergies Allergy Verified 11/04/23 12:17 Family History Mother Heart disease Hypertension Thyroid disorder Father Heart disease Brother Hypertension Surgical History History of appendectomy History of transurethral resection of prostate Hx of left cataract extraction Hx of right cataract extraction Social History (Updated 11/04/23 @ 13:58 by Suzanna Montenegro) household members: spouse housing: house Smoking Status: Former smoker quit date: 02/26/21 alcohol intake: current alcohol intake frequency: a few times a month ROS Constitutional Constitutional: Reports systems reviewed and no addt'l complaints, except as documented and fatigue Eyes Eyes: Reports systems reviewed and no addt'l complaints, except as documented ENT HEENT: Reports systems reviewed and no addt'l complaints, except as documented Cardiovascular Cardiovascular: Reports systems reviewed and no addt'l complaints, except as documented Respiratory/Chest Respiratory/Chest: Reports systems reviewed and no addt'l complaints, except as documented Gastrointestinal Gastrointestinal: Reports systems reviewed and no addt'l complaints, except as documented Genitourinary Genitourinary: Reports systems reviewed and no addt'l complaints, except as documented Musculoskeletal Musculoskeletal: Reports systems reviewed and no addt'l complaints, except as documented Integumentary Integumentary: Reports systems reviewed and no addt'l complaints, except as documented Neurologic Neurologic: Reports systems reviewed and no addt'l complaints, except as documented Psychiatric Psychiatric: Reports systems reviewed and no addt'l complaints, except as documented Endocrine Endocrinology: Reports systems reviewed and no addt'l complaints, except as documented Hematologic/Lymphatic Hematologic/Lymphatic: Reports systems reviewed and no addt'l complaints, except as documented Allergic/Immunologic Allergic/Immunologic: Reports systems reviewed and no addt'l complaints, except as documented Vital Signs Vital Signs Vital Signs: 11/04/23 12:16 11/04/23 12:16 11/04/23 13:57 Temperature 96.1 F L Temperature Source Temporal Pulse Rate 67 71 66 Respiratory Rate 14 16 17 Blood Pressure 87/57 L 108/57 L 107/70 Blood Pressure Mean 67 74 82 Pulse Ox 100 100 100 Oxygen Delivery Method Room Air 11/04/23 14:00 11/04/23 15:00 11/04/23 15:20 Temperature 96.1 F L Temperature Source Pulse Rate 70 70 70 Respiratory Rate 20 H 17 17 Blood Pressure 104/65 119/72 119/72 Blood Pressure Mean 78 87 87 Pulse Ox 97 97 97 Oxygen Delivery Method Weight Weight: 169 lb 5.04 oz Body Mass Index (BMI) 22.3 Physical Exam Const alert, oriented x3 and no apparent distress HEENT normocephalic and head/scalp atraumatic Eyes PERRL Neck full ROM Lymph Lymphatic: no lymphadenopathy noted Chest inspection of chest normal Resp normal respiratory effort, normal air movement and clear to auscultation bilaterally Cardio regular rate and regular rhythm GI Inspection: abdominal distention Auscultation: hypoactive bowel sounds Palpation: soft and firm; Negative for tender, guarding or rigid Percussion: tympanic to percussion no CVA tenderness Back/Spine no CVA tenderness Extremity normal to inspection Skin no rashes or lesions noted Neuro no focal motor deficits and no sensory deficits noted Psych mental status grossly normal, thought process normal, cooperative and affect normal Results Lab / Micro Data 11/04/23 13:45 11/04/23 13:45 Labs: Laboratory Results - last 24 hr 11/04/23 13:45: WBC 8.7, RBC 1.94 L, Hgb 5.5 L*, Hct 19.2 L, MCV 99.0 H, MCH 28.4, MCHC 28.6 L, RDW Std Deviation 61.5 H, RDW Coeff of Christina 17.2 H, Plt Count 160, MPV 10.9, Immature Gran % (Auto) SECURITY ADMINISTRATOR, Neut % (Auto) SECURITY ADMINISTRATOR, Lymph % (Auto) SECURITY ADMINISTRATOR, [place] % (Auto) SECURITY ADMINISTRATOR, Eos % (Auto) SECURITY ADMINISTRATOR, Baso % (Auto) SECURITY ADMINISTRATOR, Absolute Neuts (auto) 6.1, Absolute Lymphs (auto) 1.00, Total Counted 100, Neutrophils % (Manual) 68, Band Neutrophils % 2, Lymphocytes % (Manual) 12 L, Monocytes % (Manual) 4, Eosinophils % (Manual) 5, Basophils % (Manual) 2 H, Metamyelocytes % 3 H, Myelocytes % 1 H, Promyelocytes % 3 H, Nucleated RBC % SECURITY ADMINISTRATOR, Diff Path Review October, Platelet Estimate ADEQUATE, RBC Morphology NORM C+C, Sodium 140, Potassium 4.3, Chloride 109 H, Carbon Dioxide 26.0, Anion Gap 5, BUN 22 H, Creatinine 1.17, Est GFR (MDRD) Af Amer 77, Est GFR (MDRD) Non-Af 64, BUN/Creatinine Ratio 18.8, Glucose 165 H, Calcium 8.7, Total Bilirubin 0.50, AST 13 L, ALT 21, Alkaline Phosphatase 46, Troponin I High Sens 11, B-Natriuretic Peptide 254.7 H, Total Protein 6.5, Albumin 3.2, Globulin 3.3, Albumin/Globulin Ratio 1.0 11/04/23 15:05: Crossmatch See Detail Micro: Microbiology 11/04/23 12:48 Stool Stool Occult Blood (FANNY) - Final Occult Blood Positive Imaging Radiology Impression Chest X-Ray 11/04/23 13:16 IMPRESSION: Hyperinflation. Persistent increased interstitial markings at the lung bases suggestive of scarring although there has been some improvement as compared to prior study. Electronically Signed: Brian Duran MD at 13:38 EDT , Assessment & Plan Assessment/Plan (1) Acute GI bleeding: PLAN: I am seeing this patient in conjunction with Dr. Navarrete. She will independently evaluate this patient. Patient presents with shortness of breath and fatigue with a Hgb of 5.5. Plan to admit patient, IV fluids, bowel prep, transfuse PRBC. Plan to hold Eliquis. Patient will need straight cathed as needed per his schedule at home. Dr. Navarrete will plan to perform an upper and lower scope with possible biopsies, possible cessation of bleeding. Patient has had the opportunity to ask and have questions answered. Patient verbally understands and agrees with the plan. Thank you for allowing us to participate in this patient's care. Charges/Coding Visit Charges Office Visits / Consults: 83951 IP Consult L3
[2023-11-04] MEDS: Bisacodyl 5 MG Tablet 20 MG PO (18:45)
[2023-11-04] MEDS: Ipratropium/Albuterol Sulfate 3 ML AMPUL.NEB INHALATION (20:00)
[2023-11-04] MEDS: Polyethylene Glycol 3350 BOWEL PREP 1 BOTTLE PO (20:54)
[2023-11-04] MEDS: 0.9% Saline Lock 10 ML Syringe IV (20:54)
[2023-11-04] MEDS: 0.9% Normal Saline (1000mL) 1,000 ML 100 ML IV (23:45)
[2023-11-04] MEDS: Atorvastatin Calcium 40 MG Tablet PO (23:45)
[2023-11-04] MEDS: Metoprolol Tartrate 50 MG Tablet PO (23:45)
[2023-11-04] MEDS: Docusate Sodium 100 MG Capsule PO (23:45)
[2023-11-05] VITALS (14 sets, daily range): BP systolic 78–134; BP diastolic 46–94; PULSE 63–76; RESP 15–18; TEMP 36.2–36.8; O2SAT 94–99; BMI 31.6
[2023-11-05 00:31] LABS: Hematocrit 28.2 % (40-54); Hemoglobin 8.4 g/dL (13.0-16.5)
[2023-11-05] MEDS: Ipratropium/Albuterol Sulfate 3 ML AMPUL.NEB INHALATION ×2 (07:06→19:18)
[2023-11-05 07:31] LABS: Hematocrit 25.2 % (40-54); Hemoglobin 7.6 g/dL (13.0-16.5); Mean Corp Hgb Conc 30.2 g/dL (32-36); Mean Corpuscular Hgb 28.5 pg (27.0-32.0); Mean Corpuscular Volume 94.4 fL (80-94); Mean Platelet Vol. 10.4 fl (6.2-12.0); POSITIVE COUNT YES; POSITIVE MORPHOLOGY YES; Platelet Count 150 K/mm3 (150-450); RBC Distribution Width CV 17.7 % (11.6-14.6); RBC Distribution Width SD 59.3 fl (35.1-43.9); Red Blood Count 2.67 M/mm3 (4.6-6.2); White Blood Count 7.5 K/mm3 (4.4-11.0)
--- NOTE | 2023-11-05 07:44 | PN.SURG_ITS ---
Subjective Subjective Patient tolerated prep well clear per patient. Hemoglobin 8.4 Objective Data Objective Data Vital Signs: Vital Signs Temp Pulse Resp BP Pulse Ox O2 Del Method O2 Flow Rate 97.5 F L 63 18 133/94 H 99 Room Air 2 11/05/23 05:07 11/05/23 05:07 11/05/23 05:07 11/05/23 05:07 11/05/23 05:07 11/05/23 05:07 11/04/23 21:38 Oxygen Flow Rate (L/min) 2 Oxygen Delivery Method Room Air Weight: 240 lb 4.862 oz Body Mass Index (BMI) 31.6 Intake & Output: Intake and Output for Last 24 Hours 11/03/23 11/04/23 11/05/23 23:59 23:59 23:59 Intake Total 2401 2400 / 2400 Output Total 500 / 500 Balance 1901 1900 / 1900 Lab / Micro Data 11/05/23 00:15 11/04/23 13:45 Labs: Laboratory Results - last 24 hr 11/04/23 13:45: WBC 8.7, RBC 1.94 L, Hgb 5.5 L*, Hct 19.2 L, MCV 99.0 H, MCH 28.4, MCHC 28.6 L, RDW Std Deviation 61.5 H, RDW Coeff of Christina 17.2 H, Plt Count 160, MPV 10.9, Immature Gran % (Auto) SUPERINTENDENT ELECTRIC POWER, Neut % (Auto) SUPERINTENDENT ELECTRIC POWER, Lymph % (Auto) SUPERINTENDENT ELECTRIC POWER, [place] % (Auto) SUPERINTENDENT ELECTRIC POWER, Eos % (Auto) SUPERINTENDENT ELECTRIC POWER, Baso % (Auto) SUPERINTENDENT ELECTRIC POWER, Absolute Neuts (auto) 6.1, Absolute Lymphs (auto) 1.00, Total Counted 100, Neutrophils % (Manual) 68, Band Neutrophils % 2, Lymphocytes % (Manual) 12 L, Monocytes % (Manual) 4, Eosinophils % (Manual) 5, Basophils % (Manual) 2 H, Metamyelocytes % 3 H, Myelocytes % 1 H, Promyelocytes % 3 H, Nucleated RBC % SUPERINTENDENT ELECTRIC POWER, Diff Path Review May , Platelet Estimate ADEQUATE, RBC Morphology NORM C+C, Sodium 140, Potassium 4.3, Chloride 109 H, Carbon Dioxide 26.0, Anion Gap 5, BUN 22 H, Creatinine 1.17, Est GFR (MDRD) Af Amer 77, Est GFR (MDRD) Non-Af 64, BUN/Creatinine Ratio 18.8, Glucose 165 H, Calcium 8.7, Total Bilirubin 0.50, AST 13 L, ALT 21, Alkaline Phosphatase 46, Troponin I High Sens 11, B-Natriuretic Peptide 254.7 H, Total Protein 6.5, Albumin 3.2, Globulin 3.3, Albumin/Globulin Ratio 1.0 11/04/23 15:05: Antibody Screen NEGATIVE, Crossmatch See Detail 11/05/23 00:15: Hgb 8.4 L, Hct 28.2 L Micro: Microbiology 11/04/23 12:48 Stool Stool Occult Blood (FANNY) - Final Occult Blood Positive Radiography Diagnostic Testing: Radiology Impression Chest X-Ray 11/04/23 13:16 IMPRESSION: Hyperinflation. Persistent increased interstitial markings at the lung bases suggestive of scarring although there has been some improvement as compared to prior study. Electronically Signed: Brian Duran MD at 13:38 EDT Reading Location ID and State: [facility] / [place] , Service support , Physical Exam Const oriented x3 and no apparent distress Resp normal respiratory effort Cardio regular rate GI soft to palpation and non-tender Inspection: Negative for abdominal distention Assessment & Plan Assessment/Plan (1) Acute GI bleeding: PLAN: Plan EGD and colonoscopy scheduled this morning. Patient had no further questions this time. Eliquis held Hemoglobin 8.4 from 5.5 after 2 units packed red blood cells?AM labs pending Lilly Navarrete M.D. Pager: [phone] [facility] [address] [place] [address], Outpatient [facility]ilion, [address] [place] [address] Office: [phone]
[2023-11-05 08:07] LABS: AST(SGOT) 11 U/L (15-37); Alanine Aminotransfer ALT/SGPT 19 U/L (16-61); Albumin, Serum 3.2 g/dL (3.2-5.0); Alkaline Phosphatase 47 U/L (45-117); Anion Gap 4 (5-15); BUN 14 mg/dL (7-18); BUN/Creat Ratio 12.7 RATIO (10-20); Bilirubin, Direct 0.25 mg/dL (0.00-0.30); Calcium,Total 8.4 mg/dL (8.5-10.1); Chloride 111 mmol/L (98-107); EST Glomerular Filtration Rate 68 mL/min (>60); Est Glom Filt Rate - Afr Amer 83 mL/min (>60); Estimated Creatinine Clearance 69.35 ml/min; Globulin 3.2 g/dL (2.2-4.2); Glucose 112 mg/dL (74-106); Potassium 3.9 mmol/L (3.5-5.1); Protein, Total 6.4 g/dL (6.4-8.2); Sodium Level 141 mmol/L (136-145)
[2023-11-05 08:20] LABS: Differential Indicated MANUAL DIFF
[2023-11-05 08:43] LABS: Eosinophil 6 % (0-5); Lymphocyte 17 % (19-41); Metamyelocyte 2 % (0-1); Monocyte 9 % (0-10); Myelocyte 4 % (0-0); Neutrophil-Band 3 % (0-5); Neutrophil-Segmented 59 % (47-70); Total Cells Counted 100 (MANUAL DIFF)
[2023-11-05 08:44] LABS: Platelet Estimate ADEQUATE (ADEQ)
[2023-11-05 08:45] LABS: Anisocytosis 1+; Red Cell Morphology N CHROM NORMAL (NORM C&C)
[2023-11-05 08:46] LABS: Absolute Neutrophil Count 4.7 X10^3/uL (2.0-7.7); Neutrophil # 4.65 X10^3/uL (2.7-7.7)
[2023-11-05 08:47] LABS: Absolute Lymphocyte Count 1.27 X10^3/uL (0.83-4.51); Lymphocyte # 1.27 X10^3/ul (0.83-4.51)
--- NOTE | 2023-11-05 08:49 | PCM.PN.HOSP ---
Reason for Visit Reason for Visit: Shortness of breath Subjective Subjective Patient has no complaints at this time. He is complaining about the diet that surgery has him on. No other acute needs at this time. Objective Data Objective Data Vital Signs: Vital Signs Temp Pulse Resp BP Pulse Ox O2 Del Method O2 Flow Rate 97.6 F L 63 18 113/71 98 Room Air 2 11/05/23 07:58 11/05/23 07:58 11/05/23 07:58 11/05/23 07:58 11/05/23 07:58 11/05/23 07:58 11/04/23 21:38 Oxygen Flow Rate (L/min) 2 Oxygen Delivery Method Room Air Weight: 109 kg Body Mass Index (BMI) 31.6 Intake & Output: Intake and Output for Last 24 Hours 11/03/23 11/04/23 11/05/23 23:59 23:59 23:59 Intake Total 2401 2400 / 2400 Output Total 500 / 500 Balance 1901 1900 / 1900 Lab / Micro Data 11/05/23 07:20 11/05/23 07:20 Labs: Laboratory Results - last 24 hr 11/04/23 13:45: WBC 8.7, RBC 1.94 L, Hgb 5.5 L*, Hct 19.2 L, MCV 99.0 H, MCH 28.4, MCHC 28.6 L, RDW Std Deviation 61.5 H, RDW Coeff of Christina 17.2 H, Plt Count 160, MPV 10.9, Immature Gran % (Auto) GROOVING MACHINE OPERATOR, Neut % (Auto) GROOVING MACHINE OPERATOR, Lymph % (Auto) GROOVING MACHINE OPERATOR, [place] % (Auto) GROOVING MACHINE OPERATOR, Eos % (Auto) GROOVING MACHINE OPERATOR, Baso % (Auto) GROOVING MACHINE OPERATOR, Absolute Neuts (auto) 6.1, Absolute Lymphs (auto) 1.00, Total Counted 100, Neutrophils % (Manual) 68, Band Neutrophils % 2, Lymphocytes % (Manual) 12 L, Monocytes % (Manual) 4, Eosinophils % (Manual) 5, Basophils % (Manual) 2 H, Metamyelocytes % 3 H, Myelocytes % 1 H, Promyelocytes % 3 H, Nucleated RBC % GROOVING MACHINE OPERATOR, Diff Path Review May , Platelet Estimate ADEQUATE, RBC Morphology NORM C+C, Sodium 140, Potassium 4.3, Chloride 109 H, Carbon Dioxide 26.0, Anion Gap 5, BUN 22 H, Creatinine 1.17, Est GFR (MDRD) Af Amer 77, Est GFR (MDRD) Non-Af 64, BUN/Creatinine Ratio 18.8, Glucose 165 H, Calcium 8.7, Total Bilirubin 0.50, AST 13 L, ALT 21, Alkaline Phosphatase 46, Troponin I High Sens 11, B-Natriuretic Peptide 254.7 H, Total Protein 6.5, Albumin 3.2, Globulin 3.3, Albumin/Globulin Ratio 1.0 11/04/23 15:05: Antibody Screen NEGATIVE, Crossmatch See Detail 11/05/23 00:15: Hgb 8.4 L, Hct 28.2 L 11/05/23 07:20: WBC 7.5, RBC 2.67 L, Hgb 7.6 L, Hct 25.2 L, MCV 94.4 H, MCH 28.5, MCHC 30.2 L D, RDW Std Deviation 59.3 H, RDW Coeff of Christina 17.7 H, Plt Count 150, MPV 10.4, Neut % (Auto) Not Reportable, Absolute Neuts (auto) 4.7, Absolute Lymphs (auto) 1.27, Total Counted 100, Neutrophils % (Manual) 59, Band Neutrophils % 3, Lymphocytes % (Manual) 17 L, Monocytes % (Manual) 9, Eosinophils % (Manual) 6 H, Metamyelocytes % 2 H, Myelocytes % 4 H, Diff Path Review May foll, Platelet Estimate ADEQUATE, RBC Morphology N CHROM, Anisocytosis 1+, Sodium 141, Potassium 3.9, Chloride 111 H, Carbon Dioxide 26.0, Anion Gap 4 L, BUN 14, Creatinine 1.10, Estim Creat Clear Calc 69.35, Est GFR (MDRD) Af Amer 83, Est GFR (MDRD) Non-Af 68, BUN/Creatinine Ratio 12.7, Glucose 112 H, Calcium 8.4 L, Total Bilirubin 0.90, Direct Bilirubin 0.25, AST 11 L, ALT 19, Alkaline Phosphatase 47, Total Protein 6.4, Albumin 3.2, Globulin 3.2 Micro: Microbiology 11/04/23 12:48 Stool Stool Occult Blood (FANNY) - Final Occult Blood Positive Radiography Diagnostic Testing: Radiology Impression Chest X-Ray 11/04/23 13:16 IMPRESSION: Hyperinflation. Persistent increased interstitial markings at the lung bases suggestive of scarring although there has been some improvement as compared to prior study. Electronically Signed: Brian Duran MD at 13:38 EDT , Physical Exam Const alert, oriented x3, no apparent distress, healthy appearing and well nourished Constitutional Narrative: Elderly, obese, white male, sitting up on the edge of the bed, appears comfortable nontoxic HEENT head/scalp atraumatic and moist oral mucous membranes HEENT Narrative: Mallampati 3, no thrush Head and Scalp: normocephalic Resp normal respiratory effort, no retractions, no use of accessory muscles and clear to auscultation bilaterally Auscultation: Negative for rales, rhonchi or wheezes Cardio regular rate, regular rhythm, S1 normal heart sound, S2 normal heart sound, no rub, no gallops and no clicks GI normal to inspection, nondistended, normoactive bowel sounds, soft to palpation and non-tender Extremity no clubbing, cyanosis or edema Extremity Narrative: Pedal pulses are 2+ Neuro oriented x3, moves all extremities and no focal motor deficits Speech: speech normal Psych affect normal Psych Narrative: Eye contact is good, patient interacts appropriately Assessment & Plan Assessment/Plan (1) Acute GI bleeding: (2) Exertional dyspnea: (3) Chronic anticoagulation: PLAN: Plan Acute blood loss anemia secondary to suspected GI bleed -Hemoglobin 5.5 on presentation -Baseline hemoglobin appears to run between 13 and 15 -Status post 2 units packed red blood cells--> hemoglobin now 7.6 -Plan for EGD and colonoscopy today -Hold home Eliquis--> takes for atrial fibrillation -Had recent EGD on 10/20/[address] Navarrete that showed erythematous mucosa in the antrum that was biopsied but was otherwise normal and the colonoscopy done on the same day showed nonbleeding internal and external hemorrhoids, several small polyps that were removed -May need capsule endoscopy as an outpatient if EGD and colonoscopy are not helpful Atrial fibrillation -Patient on top chronic anticoagulation with Eliquis -Continue home metoprolol 50 mg twice daily -Continue home amiodarone -Had recent echocardiogram on 10/24/2023 that showed an EF of 55% with no regional wall motion abnormalities, mild concentric LVH, pulmonary systolic pressure 45 mmHg and mild to moderately dilated aortic root Hypertension/hyperlipidemia -Continue home atorvastatin -Continue home metoprolol Chronic constipation -Continue home docusate EDEN -Continue home CPAP Pulmonary nodules -Continue outpatient pulmonary follow-up -CT from August showed stable nodules with plan for repeat follow-up in 12 months History of tobacco abuse -Continue ongoing cessation BPH without obstruction -Monitor clinically -No current issues DVT prophylaxis -SCDs -Any chemoprophylaxis will be initiated per primary service Charges/Coding Visit Charges Inpatient E&M: 50507 Subs Hosp L2
[2023-11-05 09:28] LABS: International Normalized Ratio 1.2; Partial Thromboplast Time 26.8 Seconds (24.1-36.2); Prothrombin Time (Protime)PT. 15.5 SECONDS (11.7-14.9)
--- NOTE | 2023-11-05 11:55 | OP.EGD_ITS ---
Patient Name: Aj Serrano Procedure Date: 11/05/2023 11:14 AM Date of : 1945 Age: 78 Procedure: Upper GI endoscopy Indications: Heme positive stool, Melena Providers: Lilyl Navarrete MD Medicines: Monitored Anesthesia Care Patient Profile: This is an 78 year old male. Complications: No immediate complications. Procedure: Pre-Anesthesia Assessment: - Prior to the procedure, a History and Physical was performed, and patient medications and allergies were reviewed. The patient's tolerance of previous anesthesia was also reviewed. The risks and benefits of the procedure and the sedation options and risks were discussed with the patient. All questions were answered, and informed consent was obtained. Prior Anticoagulants: The patient has taken Eliquis (apixaban), last dose was 1 day prior to procedure. ASA Grade Assessment: Per anesthesia. After reviewing the risks and benefits, the patient was deemed in satisfactory condition to undergo the procedure. After obtaining informed consent, the endoscope was passed under direct vision. Throughout the procedure, the patient's blood pressure, pulse, and oxygen saturations were monitored continuously. The Colonoscope was introduced through the mouth, and advanced to the second part of duodenum. The upper GI endoscopy was accomplished without difficulty. The patient tolerated the procedure well. Scope In: 11:27:50 AM Scope Out: 11:30:13 AM Total Procedure Duration Time 0 hours 2 minutes 23 seconds Findings: The Z-line was variable and was found 43 cm from the incisors. The examined duodenum was normal. The cardia and gastric fundus were normal on retroflexion. There is no endoscopic evidence of bleeding in the entire examined stomach. Impression: - Z-line variable, 43 cm from the incisors. - Normal examined duodenum. - No specimens collected. Recommendation: - Return patient to hospital [facility] for observation. - Clear liquid diet. - hold anticoagulation - Continue present medications. Procedure Code(s): --- Professional --- 14581, Esophagogastroduodenoscopy, flexible, transoral; diagnostic, including collection of specimen(s) by brushing or washing, when performed (separate procedure) Diagnosis Code(s): --- Professional --- K22.89, Other specified disease of esophagus R19.5, Other fecal abnormalities K92.1, Melena (includes Hematochezia) CPT copyright 2021 [employer]. All rights reserved. The codes documented in this report are preliminary and upon manager unix review may be revised to meet current compliance requirements. MD Lilly Sebastian MD 11/05/2023 11:54:42 AM This report has been signed electronically. Number of Addenda: 0 Note Initiated On: 11/05/2023 11:14 AM
--- NOTE | 2023-11-05 11:55 | OP.CCLET_ITS ---
11/05/2023 Reema Myers [place] [id number] [address] Re : Upper GI endoscopy procedure for Aj Serrano Dear Dr. Myers This procedure was performed on Sunday, November 05, 2023. My impressions and recommendations are as follows: Impressions : - Z-line variable, 43 cm from the incisors. - Normal examined duodenum. - No specimens collected. Recommendations : - Return patient to hospital [facility] for observation. - Clear liquid diet. - hold anticoagulation - Continue present medications. My findings are described in the full procedure note, which is enclosed. If I can be of further assistance, please feel free to contact me at Doctor phone number(s): , Work: . Sincerely, MD Lilly Sebastian MD 11/05/2023 11:54:42 AM This report has been signed electronically.
--- NOTE | 2023-11-05 12:00 | OP.CCLET_ITS ---
11/05/2023 Reema Myers [place] [address] [address] Re : Colonoscopy procedure for Aj Serrano Dear Dr. Myers This procedure was performed on Sunday, November 05, 2023. My impressions and recommendations are as follows: Impressions : - Hemorrhoids found on perianal exam. - Non-bleeding external and internal hemorrhoids. - The examination was otherwise normal on direct and retroflexion views. - The examined portion of the ileum was normal. - No specimens collected. Recommendations : - Return patient to hospital [facility] for ongoing care. - Clear liquid diet. - Continue present medications. - hold anticoagulation - To visualize the small bowel, perform video capsule endoscopy at appointment to be scheduled. - No recommendation at this time regarding repeat colonoscopy. My findings are described in the full procedure note, which is enclosed. If I can be of further assistance, please feel free to contact me at Doctor phone number(s): , Work: . Sincerely, MD Lilly Sebastian MD 11/05/2023 11:59:46 AM This report has been signed electronically.
--- NOTE | 2023-11-05 12:00 | OP.COLON_ITS ---
Patient Name: Aj Serrano Procedure Date: 11/05/2023 11:30 AM Date of : 1945 Age: 78 Procedure: Colonoscopy Indications: Heme positive stool, Melena Providers: Lilly Navarrete MD Medicines: Monitored Anesthesia Care Patient Profile: This is an 78 year old male. Last Colonoscopy: 2 weeks ago. Complications: No immediate complications. Procedure: Pre-Anesthesia Assessment: - Prior to the procedure, a History and Physical was performed, and patient medications and allergies were reviewed. The patient's tolerance of previous anesthesia was also reviewed. The risks and benefits of the procedure and the sedation options and risks were discussed with the patient. All questions were answered, and informed consent was obtained. Prior Anticoagulants: The patient has taken Eliquis (apixaban), last dose was 1 day prior to procedure. ASA Grade Assessment: Per anesthesia. After reviewing the risks and benefits, the patient was deemed in satisfactory condition to undergo the procedure. After I obtained informed consent, the scope was passed under direct vision. Throughout the procedure, the patient's blood pressure, pulse, and oxygen saturations were monitored continuously. The Colonoscope was introduced through the anus and advanced to the terminal ileum. The colonoscopy was performed without difficulty. The patient tolerated the procedure well. The quality of the bowel preparation was good. Scope In: 11:31:56 AM Scope Withdrawal Time 0 hours 11 minutes 5 seconds Scope Out: 11:47:56 AM Total Procedure Duration Time 0 hours 16 minutes 0 seconds Findings: Hemorrhoids were found on perianal exam. Non-bleeding external and internal hemorrhoids were found. The hemorrhoids were small and Grade I (internal hemorrhoids that do not prolapse). The exam was otherwise without abnormality on direct and retroflexion views. The terminal ileum appeared normal. There is no endoscopic evidence of bleeding in the entire colon. Impression: - Hemorrhoids found on perianal exam. - Non-bleeding external and internal hemorrhoids. - The examination was otherwise normal on direct and retroflexion views. - The examined portion of the ileum was normal. - No specimens collected. Recommendation: - Return patient to hospital [facility] for ongoing care. - Clear liquid diet. - Continue present medications. - hold anticoagulation - To visualize the small bowel, perform video capsule endoscopy at appointment to be scheduled. - No recommendation at this time regarding repeat colonoscopy. Procedure Code(s): --- Professional --- 74836, Colonoscopy, flexible; diagnostic, including collection of specimen(s) by brushing or washing, when performed (separate procedure) Diagnosis Code(s): --- Professional --- K64.0, First degree hemorrhoids R19.5, Other fecal abnormalities K92.1, Melena (includes Hematochezia) CPT copyright 2021 [employer]. All rights reserved. The codes documented in this report are preliminary and upon medical records coder review may be revised to meet current compliance requirements. MD Lilly Sebastian MD 11/05/2023 11:59:46 AM This report has been signed electronically. Number of Addenda: 0 Note Initiated On: 11/05/2023 11:30 AM
--- NOTE | 2023-11-05 13:15 | CASEMGMT ---
RN?CM?TEAROOM HOSTESS?CM?to room to meet with patient for initial transition planning/care coordination?assessment.?RN?CM?introduced self and role at [facility].? Pt voices understanding and consents to?assessment?at this time.? Pt resting in bed in no distress at this time.? Pt is A/O at this time and answers all questions appropriately.?? Care providers, pharmacy, and demographics verified/updated at this time. PCP: Dr Myers. Pt also goes to [facility] Specialists: PALAK/cardiology, Dr Christianson-uro, Lsia Madrigal/ELECTRICIAN MANAGER-pulm Preferred Pharmacy: [facility] [place] @ [facility]. Uses [facility] for long-term medications. Insurance: [facility], [place] [employer] [place] Prescription Benefit:?Pt states, I don't know. Rama, MS3 RN CM, made aware. 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 He states if he did do HCPOA, that his would be his POA. LNOK: , Nan. 3 adult children Living Arrangements: Lives w/his in one-story home w/6 steps to enter and pt states he does okay with them. Pt manages his own medications. does most of the home tasks. Transportation:?Pt states drives self and states no transportation concerns at this time.? also drives. DME: Pt states he is in the process of getting a PAP. He S/C's himself, gets the supplies via mail-order, and the [facility] covers the cost. He states has all supplies needed at this time. Pt states no need for further DME at this time.? HHC/SNF: No hx of either. Pt has done OP therapy in the past. Pt declines need for HHC or OP therapy an no needs identified at this time. Pt wishes to return home and states has no concerns with going home at time of discharge. ?CM?to follow for any discharge planning/needs.? Pt voices no further concerns/needs at this time.? Advised pt to ask for?CM?if any further questions/concerns/needs arise.? Voices understanding. PLAN:??Home w/spousal support and discharge plans in place. Sheron BSN?RN?CM
[2023-11-05 14:38] LABS: Pathologist Review Reviewed
[2023-11-05] MEDS: Atorvastatin Calcium 40 MG Tablet PO (23:23)
[2023-11-05] MEDS: Metoprolol Tartrate 50 MG Tablet PO (23:24)
[2023-11-06 03:00] VITALS: RESP 15
[2023-11-06 03:47] VITALS: BP 110/71; PULSE 65; RESP 15; TEMP 36.8; O2SAT 96
[2023-11-06 07:04] LABS: Hematocrit 23.3 % (40-54); Mean Corpuscular Hgb 27.8 pg (27.0-32.0); Mean Corpuscular Volume 92.5 fL (80-94); Mean Platelet Vol. 10.6 fl (6.2-12.0); POSITIVE COUNT YES; POSITIVE MORPHOLOGY YES; Platelet Count 132 K/mm3 (150-450); RBC Distribution Width CV 17.1 % (11.6-14.6); RBC Distribution Width SD 57.5 fl (35.1-43.9); Red Blood Count 2.52 M/mm3 (4.6-6.2)
[2023-11-06 07:18] VITALS: PULSE 80; RESP 18; O2SAT 98
[2023-11-06] MEDS: Ipratropium/Albuterol Sulfate 3 ML AMPUL.NEB INHALATION ×2 (07:18→13:35)
[2023-11-06 08:25] LABS: Differential Indicated MANUAL DIFF
[2023-11-06 08:29] LABS: Basophil 1 % (0-1); Eosinophil 7 % (0-5); Lymphocyte 20 % (19-41); Metamyelocyte 5 % (0-1); Monocyte 8 % (0-10); Myelocyte 11 % (0-0); Neutrophil-Segmented 48 % (47-70); Total Cells Counted 100 (MANUAL DIFF)
[2023-11-06 08:31] LABS: Polychromasia 2+
[2023-11-06 08:32] LABS: Anisocytosis 2+; Ovalocyte 2+; Platelet Estimate SLT DEC (ADEQ); Stomatocyte RARE
[2023-11-06 08:34] LABS: Absolute Neutrophil Count 2.4 X10^3/uL (2.0-7.7)
[2023-11-06 09:00] VITALS: BP 104/80; PULSE 75; RESP 16; TEMP 36.8; O2SAT 98
[2023-11-06] MEDS: Amiodarone 200 MG Tablet PO (09:31)
[2023-11-06] MEDS: Docusate Sodium 100 MG Capsule PO (09:37)
--- NOTE | 2023-11-06 10:00 | PN.SURG_ITS ---
Subjective Subjective Patient seen and examined during AM rounds. He is found sitting out of bed in the chair. He shares that he had a loose bowel movement at approximately 6 PM last evening and has had no further bowel activity. He describes his bowel movement as characterized by mild incontinence and nonbloody. He confirms that he is tolerating his liquid diet without difficulty. Further, he denies any lightheadedness today. Objective Data Objective Data Vital Signs: Vital Signs Temp Pulse Resp BP Pulse Ox O2 Del Method O2 Flow Rate 98.2 F 80 18 110/71 98 Room Air 2 11/06/23 03:47 11/06/23 07:18 11/06/23 07:18 11/06/23 03:47 11/06/23 07:18 11/06/23 07:18 11/04/23 21:38 Oxygen Flow Rate (L/min) 2 Oxygen Delivery Method Room Air Weight: 240 lb 4.862 oz Body Mass Index (BMI) 31.6 Intake & Output: Intake and Output for Last 24 Hours 11/04/23 11/05/23 11/06/23 23:59 23:59 23:59 Intake Total 2 2402 4200.00 / 4200.00 Output Total 1200 / 1200 Balance 2 1902 3000.00 / 3000.00 Lab / Micro Data 11/06/23 06:11 11/05/23 07:20 Labs: Laboratory Results - last 24 hr 11/04/23 13:45: Diff Path Review Reviewed 11/06/23 06:11: WBC 5.0, RBC 2.52 L, Hgb 7.0 L, Hct 23.3 L, MCV 92.5, MCH 27.8, MCHC 30.0 L, RDW Std Deviation 57.5 H, RDW Coeff of Christina 17.1 H, Plt Count 132 L, MPV 10.6, Neut % (Auto) Not Reportable, Absolute Neuts (auto) 2.4, Absolute Lymphs (auto) 1.00, Total Counted 100, Neutrophils % (Manual) 48, Lymphocytes % (Manual) 20, Monocytes % (Manual) 8, Eosinophils % (Manual) 7 H, Basophils % (Manual) 1, Metamyelocytes % 5 H, Myelocytes % 11 H, Diff Path Review May foll, Platelet Estimate SLT DEC, Polychromasia 2+, Anisocytosis 2+, Ovalocytes 2+, Sto matocytes RARE Micro: Microbiology 11/04/23 12:48 Stool Stool Occult Blood (FANNY) - Final Occult Blood Positive Physical Exam Const oriented x3 and no apparent distress Resp normal respiratory effort GI GI Narrative: Mildly distended, tympanic, soft, nontender to palpation x 4 quadrants Assessment & Plan Assessment/Plan (1) Acute GI bleeding: PLAN: Patient admitted for GI bleed status post colonoscopy and EGD with Dr. Landon keane yesterday 11/05/2023. These were negative and their findings, however, patient's hemoglobin has further down trended today (7.6 to 7.0). He is clinically stable and asymptomatic. There are no clinical signs of ongoing blood loss and this may be simply reflected as a late indicator. I have shared this impression with Mr. Serrano and recommended that we would simply repeat his hemoglobin this afternoon. If it is stable at that point we can advance his diet further. However, he is cautioned that if it falls further then we would b e looking for transfer to outside facility and probable transfusion. Transfusion threshold discussed with hospitalist service and they are in agreement that in the absence of ischemic heart disease he does not warrant a transfusion at this time. Will continue to hold patient's Eliquis and have sta rted Protonix empirically. Will reassess this afternoon. Shawn Moore MD General Surgery Endocrine Surgery Pager: [facility] [address] [place] [address], [facility], [address] [place] [address] Office: [phone] Charges/Coding Visit Charges Inpatient E&M: 52629 Subs Hosp L2
--- NOTE | 2023-11-06 11:16 | PN.HOSP_ITS ---
Reason for Visit Reason for Visit: Shortness of breath Subjective Subjective No complaints at this time. Nursing is at the bedside and notes his blood pressure is systolic 107 and he has metoprolol 50 mg do. At this point the patient states he is unclear why he is on 50 mg. 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 I reviewed the most recent cardiology note and there was no indication that the dose was to be increased. The patient states t hat he had not been having elevated blood pressure or heart rate issues and the most recent cardiology note reflects this. I will go ahead and decrease his metoprolol to 25 mg daily and I did discuss this with Dr. Moore so the discharge dose of metoprolol should be 25 mg. Objective Data Objective Data Vital Signs: Vital Signs Temp Pulse Resp BP Pulse Ox O2 Del Method O2 Flow Rate 98.3 F 75 16 104/80 98 Room Air 2 11/06/23 09:00 11/06/23 09:00 11/06/23 09:00 11/06/23 09:00 11/06/23 09:00 11/06/23 09:00 11/04/23 21:38 Oxygen Flow Rate (L/min) 2 Oxygen Delivery Method Room Air Weight: 109 kg Body Mass Index (BMI) 31.6 Intake & Output: Intake and Output for Last 24 Hours 11/04/23 11/05/23 11/06/23 23:59 23:59 23:59 Intake Total 2 2402 4200.00 / 4200.00 Output Total 1200 / 1200 Balance 2 1902 3000.00 / 3000.00 Lab / Micro Data 11/06/23 06:11 11/05/23 07:20 Labs: Laboratory Results - last 24 hr 11/04/23 13:45: Diff Path Review Reviewed 11/06/23 06:11: WBC 5.0, RBC 2.52 L, Hgb 7.0 L, Hct 23.3 L, MCV 92.5, MCH 27.8, MCHC 30.0 L, RDW Std Deviation 57.5 H, RDW Coeff of Christina 17.1 H, Plt Count 132 L, MPV 10.6, Neut % (Auto) Not Reportable, Absolute Neuts (auto) 2.4, Absolute Lymphs (auto) 1.00, Total Counted 100, Neutrophils % (Manual) 48, Lymphocytes % (Manual) 20, Monocytes % (Manual) 8, Eosinophils % (Manual) 7 H, Basophils % (Manual) 1, Metamyelocytes % 5 H, Myelocytes % 11 H, Diff Path Review May foll, Platelet Estimate SLT DEC, Polychromasia 2+, Anisocytosis 2+, Ovalocytes 2+, Stomatocytes RARE Micro: Microbiology 11/04/23 12:48 Stool Stool Occult Blood (FANNY) - Final Occult Blood Positive Physical Exam Const alert, oriented x3, no apparent distress, healthy appearing and well nourished; Negative for average body habitus Constitutional Narrative: Elderly, obese, white male, sitting up on the edge of the bed, appears comfortable, nontoxic, nursing at bedside HEENT normocephalic, head/scalp atraumatic, hearing grossly normal bilaterally and moist oral mucous membranes HEENT Narrative: Mallampati 3, no thrush Resp normal respiratory effort, normal air movement, no retractions, no use of accessory muscles and clear to auscultation bilaterally Auscultation: Negative for rales, rhonchi or wheezes Cardio regular rate, regular rhythm, S1 normal heart sound, S2 normal heart sound, no murmurs, no rub, no gallops and no clicks GI normal to inspection, nondistended, normoactive bowel sounds, soft to palpation and non-tender Extremity no clubbing, cyanosis or edema Extremity Narrative: Pedal pulses are 2+ Neuro oriented x3, moves all extremities and no focal motor deficits Speech: speech normal Psych affect normal Psych Narrative: Eye contact is good, patient interacts appropriately Assessment & Plan Assessment/Plan (1) Acute GI bleeding: (2) Exertional dyspnea: (3) Chronic anticoagulation: PLAN: Plan Acute blood loss anemia secondary to suspected GI bleed -Hemoglobin 5.5 on presentation -Baseline hemoglobin appears to run between 13 and 15 -Status post 2 units packed red blood cells--> posttransfusion hemoglobin was 8.4--> 7.6--> now 7.0 this morning -EGD and colonoscopy done on 11/05/2023 were unremarkable for any identifiable bleeding -Suspect small bowel is recommended however if his hemoglobin is not stabilizing he may need a bleeding scan versus transfer to tertiary center for interventional radiology intervention -Repeat hemoglobin pending for this afternoon and then general surgery w ill make further decision from there -Continue to hold home Eliquis--> takes for atrial fibrillation Atrial fibrillation -Continue to hold Eliquis -Continue metoprolol but decrease to 25 mg p.o. twice daily and I would recommend this being the discharge dose -Patient it is unclear why he is on this dose and appears from his last cardiology note the recommended dose was 25 mg p.o. twice daily -Blood pressures have been soft so holding the 50 mg this morning -Continue home amiodarone -Had recent echocardiogram on 10/24/2023 that showed an EF of 55% with no regional wall motion abnormalities, mild concentric LVH, pulmonary systolic pressure 45 mmHg and mild to moderately dilated aortic root Hypertension/hyperlipidemia -Continue home atorvastatin -Continue home metoprolol but decrease dose as noted above Chronic constipation -Continue home docusate EDEN -Continue home CPAP Pulmonary nodules -Continue outpatient pulmonary follow-up -CT from August showed stable nodules with plan for repeat follow-up in 12 months History of tobacco abuse -Continue ongoing cessation BPH without obstruction -Monitor clinically -No current issues DVT prophylaxis -SCDs -Any chemoprophylaxis will be initiated per primary service Charges/Coding Visit Charges Inpatient E&M: 59035 Subs Hosp L2
[2023-11-06 13:09] LABS: Hematocrit 24.5 % (40-54); Hemoglobin 7.4 g/dL (13.0-16.5); Mean Corp Hgb Conc 30.2 g/dL (32-36); Mean Corpuscular Hgb 28.7 pg (27.0-32.0); Mean Platelet Vol. 10.4 fl (6.2-12.0); POSITIVE COUNT YES; POSITIVE MORPHOLOGY YES; Platelet Count 138 K/mm3 (150-450); RBC Distribution Width SD 58.3 fl (35.1-43.9); Red Blood Count 2.58 M/mm3 (4.6-6.2); White Blood Count 6.1 K/mm3 (4.4-11.0)
[2023-11-06 13:10] LABS: Differential Indicated MANUAL DIFF
[2023-11-06 13:31] LABS: Eosinophil 5 % (0-5); Lymphocyte 16 % (19-41); Metamyelocyte 2 % (0-1); Monocyte 5 % (0-10); Myelocyte 4 % (0-0); Neutrophil-Band 2 % (0-5); Neutrophil-Segmented 66 % (47-70); Total Cells Counted 100 (MANUAL DIFF)
[2023-11-06 13:32] LABS: Platelet Estimate SLT DEC (ADEQ)
[2023-11-06 13:34] LABS: Absolute Lymphocyte Count 0.97 X10^3/uL (0.83-4.51); Absolute Neutrophil Count 4.2 X10^3/uL (2.0-7.7)
[2023-11-06 13:35] VITALS: PULSE 68; RESP 16
--- NOTE | 2023-11-06 15:56 | DCINST_ITS ---
Discharge Instructions Diet Discharge Diet: No restrictions Dressing / Incision Call your doctor if you observe: Inability to have a bowel movement, Uncontrolled pain and - (Sudden bloody or dark stools) Follow Up Care Test Results: Test results from this visit will be discussed in further detail at your follow- up appointment, if applicable. Discharge Plan Admission Admit Date/Time: 11/04/23 14:24 Primary Reason for Your Visit: Acute blood loss anemia with suspected GI source Attending Provider: Roberto Hussein Primary Care Provider: Reema Myers Consulting Providers: Freddie Ortiz; Amber Fang Instructions Additional Instructions / Restrictions: Continue to hold Eliquis and follow-up with PCP early in the week for repeat lab studies (versus order will be placed through hospital) Discharge Orders/Prescriptions Prescriptions: Continued atorvastatin 40 mg tablet 40 mg PO QHS docusate sodium 100 mg capsule 100 mg PO BID omega-3 fatty acids-fish oil 1 EACH capsule 3 ea PO BID metoprolol tartrate 50 mg tablet 50 mg PO BID Qty: 180 11RF Rx Instructions: Decrease to 25mg until follow up with cardiology amiodarone 200 mg tablet 200 mg PO DAILY Qty: 90 3RF Held Eliquis 5 mg tablet 5 mg PO BID Qty: 60 3RF Hold Instructions: Hold until discuss further with PCP, Dr. Villar Other Ambulatory Orders: CBC W/Diff, Automated (Routine) Timeframe: 1 Week Facility: [facility] - Location: Laboratory Ordered By: Dr. Shawn Moore Referrals / Follow Up: Reema Myers MD [Primary Care Provider] - Disposition Disposition (needs filled in before D/C Order can be placed): Home, Self Care
[2023-11-06 16:04] VITALS: BP 119/76; PULSE 80; RESP 18; TEMP 37; O2SAT 98
--- NOTE | 2023-11-06 16:06 | PCM.DC.SUM ---
Providers Date of Admission: 11/04/23 Primary Care Physician: Dr. Reema Myers MD Consultations 11/04/23 18:14 Consult: Hospitalist Routine Consulting Provider: Freddie Ortiz Reason for Consult: medical management EMERGENT Consult: No MD Notified: Yes Date Notified: 11/04/23 Time Notified: 18:14 Method of Notification: Verbal Reason For Visit: GI BLEED Diagnosis Discharge Diagnosis (1) Acute GI bleeding: Status: Acute Code(s): K92.2 - Gastrointestinal hemorrhage, unspecified Plan: Patient admitted for GI bleed status post colonoscopy and EGD with Dr. Landon keane yesterday 11/05/2023. These were negative and their findings, however, patient's hemoglobin has further down trended today (7.6 to 7.0). He is clinically stable and asymptomatic. There are no clinical signs of ongoing blood loss and this may be simply reflected as a late indicator. I have shared this impression with Mr. Serrano and recommended that we would simply repeat his hemoglobin this afternoon. If it is stable at that point we can advance his diet further. However, he is cautioned that if it falls further then we would be looking for transfer to outside facility and probable transfusion. Transfusion threshold discussed with hospitalist service and they are in agreement that in the absence of ischemic heart disease he does not warrant a transfusion at this time. Will continue to hold patient's Eliquis and have started Protonix empirically. Will reassess this afternoon. Shawn Moore MD General Surgery Endocrine Surgery Pager: [facility] [address] [place] [address], [facility], [address] [place] [address] Office: [phone] (2) Exertional dyspnea: Status: Acute Code(s): R06.09 - Other forms of dyspnea (3) Chronic anticoagulation: Status: Acute Code(s): Z79.01 - intermodal customer service (current) use of 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 Medications at Discharge Home Medications omega-3 fatty acids-fish oil 340 mg-1,000 mg capsule 3 ea PO BID supplement 05/31/19 apixaban 5 mg tablet (Eliquis) 5 mg PO BID #60 tabs 03/18/21 atorvastatin 40 mg tablet 40 mg PO QHS 03/18/21 amiodarone 200 mg tablet 200 mg PO DAILY #90 tabs 02/02/23 docusate sodium 100 mg capsule 100 mg PO BID 07/01/23 metoprolol tartrate 50 mg tablet 50 mg PO BID this is a dose increase #180 tabs 11/06/23 Hospital Course Operations None Procedures Colonoscopy (11/05/2023) and EGD (11/05/2023) Summary of Care Provided Hospital Course: Patient 78-year-old male who is admitted 11/04/2023 after presentation to ER with complaints of acute onset shortness of breath, fatigue, and laboratory findings showing profound anemia with hemoglobin of 5.5. Patient was recently status post EGD and colonoscopy with Dr. Landon keane on 10/20/2023 and it was felt that he may have a GI bleed related to these prior scopes and his use of chronic anticoagulation. Thus he was asked to complete a bowel prep and underwent repeat double endoscopy on 11/05/2023. However, the findings of these repeated studies were negative and patient was simply returned to the hospital marks with a diet advancement and continued hold of his anticoagulation. Hospital day 3 patient's hemoglobin had slightly down trended from its posttransfusion level to a hemoglobin of 7 but he was asymptomatic for this anemia and had no clinical signs of ongoing losses. Thus I discussed simply repeating his level later that day and maintained his diet at his present level but also advised him that a further drop in his hemoglobin would warrant transfer to a tertiary facility with advanced endoscopy capabilities plus minus interventional radiology. Patient's hemoglobin on recheck returned higher than the morning draw and he remained asymptomatic without signs of GI distress or bloody output. In fact, patient developed some mild abdominal distention but no abdominal pain. Follow-up investigation with x-ray or prescription of a bowel regimen were both discussed, but patient declined both interventions and wished to allow things to happen naturally. Patient did go on to have a normal?appearing bowel movement and copious flatus. He reported improvements in his abdominal distention and comfort with our discussion on discharge with outpatient follow-up with his PCP. Upon discharge he was advised to continue holding his anticoagulation and present for recheck of his hemoglobin. An outpatient order for this lab was placed, the patient was advised he could just as well follow-up with his PCP if that was his desire. Physical Exam Const alert, oriented x3, no apparent distress and well nourished Resp normal respiratory effort GI GI Narrative: Mild to moderately distended and tympanic without tenderness. Weight / BMI Weight Weight: 240 lb 4.862 oz Body Mass Index (BMI) 31.6 ABG / Lab / Microbiology Data 11/06/23 12:57 11/05/23 07:20 Laboratory: Laboratory Results - last 24 hr 11/06/23 06:11: WBC 5.0, RBC 2.52 L, Hgb 7.0 L, Hct 23.3 L, MCV 92.5, MCH 27.8, MCHC 30.0 L, RDW Std Deviation 57.5 H, RDW Coeff of Christina 17.1 H, Plt Count 132 L, MPV 10.6, Neut % (Auto) Not Reportable, Absolute Neuts (auto) 2.4, Absolute Lymphs (auto) 1.00, Total Counted 100, Neutrophils % (Manual) 48, Lymphocytes % (Manual) 20, Monocytes % (Manual) 8, Eosinophils % (Manual) 7 H, Basophils % (Manual) 1, Metamyelocytes % 5 H, Myelocytes % 11 H, Diff Path Review May nate, Platelet Estimate SLT DEC, Polychromasia 2+, Anisocytosis 2+, Ovalocytes 2+, Stomatocytes RARE 11/06/23 12:57: WBC 6.1, RBC 2.58 L, Hgb 7.4 L, Hct 24.5 L, MCV 95.0 H, MCH 28.7, MCHC 30.2 L, RDW Std Deviation 58.3 H, RDW Coeff of Christina 17.0 H, Plt Count 138 L, MPV 10.4, Neut % (Auto) Not Reportable, Absolute Neuts (auto) 4.2, Absolute Lymphs (auto) 0.97, Total Counted 100, Neutrophils % (Manual) 66, Band Neutrophils % 2, Lymphocytes % (Manual) 16 L, Monocytes % (Manual) 5, Eosinophils % (Manual) 5, Metamyelocytes % 2 H, Myelocytes % 4 H, Diff Path Review May nate, Platelet Estimate SLT DEC Microbiology: Microbiology 11/04/23 12:48 Stool Stool Occult Blood (FANNY) - Final Occult Blood Positive D/C Instructions Discharge Diet: No restrictions Call your doctor if you observe: Inability to have a bowel movement, Uncontrolled pain and - (Sudden bloody or dark stools) Meaningful Use Info Meaningful Use Meaningful Use Diagnoses (Choose all that apply): None applicable Ischemic Stroke Statin Dosing Therapy Reference: STATIN DOSE THERAPY REFERENCE: * Patients > 75 years receive moderate or high dose statin therapy. * Patients 75 years or YOUNGER should receive HIGH intensity statin dose unless contraindicated. You will be required to document reason for non-treatment if statin daily dose does not meet guidelines. HIGH DOSE STATIN THERAPY DAILY Atorvastatin > than or = to 40 mg Rosuvastatin > than or = to 20 mg Amlodipine + Atorvastatin > than or = to 2.5/40 mg Ezetimibe + Simvastatin 10/80 mg Simvastatin 80mg Discharge Plan Admission Admit Date/Time: 11/04/23 14:24 Primary Reason for Your Visit: Acute blood loss anemia with suspected GI source Attending Provider: Roberto Hussein Primary Care Provider: Reema Myers Consulting Providers: Freddie Ortiz; Amber Fang Instructions Additional Instructions / Restrictions: Continue to hold Eliquis and follow-up with PCP early in the week for repeat lab studies (versus order will be placed through hospital) Discharge Orders/Prescriptions Prescriptions: Continued atorvastatin 40 mg tablet 40 mg PO QHS docusate sodium 100 mg capsule 100 mg PO BID omega-3 fatty acids-fish oil 1 EACH capsule 3 ea PO BID metoprolol tartrate 50 mg tablet 50 mg PO BID Qty: 180 11RF Rx Instructions: Decrease to 25mg until follow up with cardiology amiodarone 200 mg tablet 200 mg PO DAILY Qty: 90 3RF Held Eliquis 5 mg tablet 5 mg PO BID Qty: 60 3RF Hold Instructions: Hold until discuss further with PCP, Dr. Villar Other Ambulatory Orders: CBC W/Diff, Automated (Routine) Timeframe: 1 Week Facility: [facility] - Location: Laboratory Ordered By: Dr. Shawn Moore Referrals / Follow Up: Reema Myers MD [Primary Care Provider] - Disposition Disposition (needs filled in before D/C Order can be placed): Home, Self Care Charges/Coding Visit Charges Inpatient E&M: 10938 Disch Hosp
[2023-11-09 10:18] LABS: Pathologist Review Reviewed
[2023-11-09 10:20] LABS: Pathologist Review Reviewed
[2023-11-09 10:33] LABS: Pathologist Review Reviewed
== END 2023-11-06 18:05 | disposition home or self-care (01) | DRG 812 ==
LOC: ED 15:19 → MS3 16:53
PROVIDERS: Anesthesiology; Physician Assistant; Surgery; Admitting Provider Surgery; Emergency Provider Student in an Organized Health Care Education/Training Program; PCP Family Medicine; Visit Provider Surgery
PROC: 0DJD8ZZ Inspection of Lower Intestinal Tract, Via Natural or Artificial Opening Endoscopic (ICD-10-PCS; CPT 45378; principal; 2023-11-05 10:40)
DX: D62 Acute posthemorrhagic anemia (principal); I48.11 Longstanding persistent atrial fibrillation; J44.9 Chronic obstructive pulmonary disease, unspecified; I10 Essential (primary) hypertension; G47.33 Obstructive sleep apnea (adult) (pediatric); E78.5 Hyperlipidemia, unspecified; K59.09 Other constipation; R19.5 Other fecal abnormalities; K22.89 Other specified disease of esophagus; K64.0 First degree hemorrhoids; E66.9 Obesity, unspecified; R60.0 Localized edema; Z87.891 Personal history of nicotine dependence; Z68.31 Body mass index [BMI] 31.0-31.9, adult; Z79.01 Long term (current) use of 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; R91.1 Solitary pulmonary nodule; N40.0 Benign prostatic hyperplasia without lower urinary tract symptoms
CPT/HCPCS: 36415; 71046; 80048; 80053; 80076; 82274; 83880; 84484; 85014; 85018; 85025; 85610; 85730; 86850; 86900; 86901; 86920; 86922; 93005; 94640; 94668; 95811; 99284; J7030; J7040; J7050; J7120; P9016; A4216; J2405

== ENCOUNTER → 2023-11-08 | Outpatient (CLI) | payer MEDICARE, OTHER, SELFPAY ==
[2023-11-08 11:16] LABS: Absolute Lymphocyte Count 0.71 X10^3/uL (0.83-4.51); Basophil# 0.03 X10^3/uL; Basophil% 0.5 % (0-1); Eosinophil# 0.74 X10^3/uL; Eosinophils% 11.9 % (0-5); Hematocrit 27.6 % (40-54); Lymphocyte # 0.71 X10^3/ul (0.83-4.51); Lymphocyte % 11.4 % (19-41); Mean Corpuscular Hgb 27.7 pg (27.0-32.0); Mean Corpuscular Volume 95.5 fL (80-94); Mean Platelet Vol. 11.1 fl (6.2-12.0); NRBC Flagged by Analyzer 1.4 % (0-5); Neutrophil # 3.99 X10^3/uL (2.7-7.7); Platelet Count 166 K/mm3 (150-450); RBC Distribution Width CV 16.1 % (11.6-14.6); RBC Distribution Width SD 55.9 fl (35.1-43.9); Red Blood Count 2.89 M/mm3 (4.6-6.2); White Blood Count 6.2 K/mm3 (4.4-11.0)
== END | disposition home or self-care (01) ==
LOC: LAB 10:28
PROVIDERS: PCP Family Medicine; Referring Provider Surgery; Visit Provider Surgery
DX: K92.2 Gastrointestinal hemorrhage, unspecified (principal)
CPT/HCPCS: 36415; 85025

== ENCOUNTER → 2023-11-09 | Outpatient (CLI) | payer MEDICARE, OTHER, SELFPAY ==
[2023-11-09 10:03] LABS: Platelet Count 185 K/mm3 (150-450); RET-HE 19.3 pg (30-35); Reticulocyte Count 3.77 % (0.5-1.5)
[2023-11-09 10:41] LABS: Erythrocyte Sedimentation Rate 9 mm/hr (0-20)
[2023-11-09 11:09] LABS: CRP < 2.90 mg/L (0.0-3.0); Ferritin 11 ng/mL (26-388); Iron 21 ug/dL (65-175); Iron Binding Capacity,Total 550 ug/dL (250-450); LDH 248 U/L (87-241); Thyroid Stim Hormone (TSH) 2.64 uIU/mL (0.358-3.74)
[2023-11-10 14:10] LABS: Anti-Centromere B Ab <0.2 AI (0.0-0.9); Anti-Chromatin <0.2 AI (0.0-0.9); Anti-Jo <0.2 AI (0.0-0.9); Anti-Mitochondrial AB <20.0 Units (0.0-20.0); Anti-Scleroderma-70 AB <0.2 AI (0.0-0.9); Anti-dsDNA Ab <1 IU/mL (0-9); RNP Ab <0.2 AI (0.0-0.9); SJOGREN'S Anti-SS-A test < 0.2 AI (0.0-0.9); SJOGREN'S Anti-SS-B test < 0.2 AI (0.0-0.9); Smith Ab <0.2 AI (0.0-0.9)
[2023-11-12 19:07] LABS: Albumin 3.7 g/dL (2.9-4.4); Alpha-1-Globulins 0.2 g/dL (0.0-0.4); Alpha-2-Globulins 0.8 g/dL (0.4-1.0); Anti-Smooth Muscle ABS 13 Units (0-19); Cytoplasmic Ab (C-ANCA) <1:20 titer (Neg:<1:20); Endomysial Antibody IgA Negative (Negative); Gamma Globulin 0.7 g/dL (0.4-1.8); Gastrin, Serum 35 pg/mL (0-115); Haptoglobin 164 mg/dL (34-355); Immunoglobulin A 324 mg/dL (61-437); Immunoglobulin E 190 IU/mL (6-495); Immunoglobulin G 818 mg/dL (603-1613); Immunoglobulin M 46 mg/dL (15-143); PROEL- TOTAL PROTEIN 6.6 g/dL (6.0-8.5); Perinuclear Ab (P-ANCA) <1:20 titer (Neg:<1:20); t-Transglutaminase IgA <2 U/mL (0-3)
== END | disposition home or self-care (01) ==
LOC: LAB 09:26
PROVIDERS: PCP Family Medicine; Referring Provider Internal Medicine Gastroenterology; Visit Provider Internal Medicine Gastroenterology
DX: D64.9 Anemia, unspecified (principal)
CPT/HCPCS: 36415; 82728; 82784; 82785; 82941; 83010; 83516; 83540; 83550; 83615; 84165; 84443; 85045; 85652; 86140; 86225; 86235; 86255; 86256; 86334; 86340

== ENCOUNTER → 2023-11-17 | Outpatient (CLI) | payer MEDICARE, OTHER, SELFPAY ==
--- NOTE | 2023-11-17 09:47 | US_ITS ---
STUDY: ABDOMINAL ULTRASOUND - RIGHT UPPER QUADRANT; ELASTOGRAPHY REASON FOR VISIT: Male, 78 years old. Fatty infiltration of the liver. TECHNIQUE: Ultrasound evaluation of the right upper quadrant was performed with real-time and static shipman-scale imaging. Point quantification shear wave elastography was performed ([employer]). TECHNICAL QUALITY: Adequate. COMPARISON: None. FINDINGS: Liver: The liver measures 16.9 cm. There is normal echogenicity of the liver. The bile ducts are within normal limits. There is hepatic color flow. The direction of portal flow is hepatopetal. There is no demonstrated mass lesion. Median liver stiffness measured 6.4 kPa. Gallbladder: Normal distended gallbladder. The gallbladder wall measures 2.1 mm. There is a negative sonographic Eze''s sign. There is no pericholecystic fluid. There are no gallstones. Common Bile Duct (C.B.D.): The common bile duct measures 2.7 mm. Pancreas: There is normal echogenicity of the visualized pancreas. There is no demonstrated pancreatic mass or cyst. Right Kidney: Normal size of the right kidney. The right kidney measures 11.7 cm x 6 cm x 6.2 cm. Normal renal cortex. The right cortex measures 1.5 cm. There is an 8 mm x 6 mm x 6 mm cyst in the midpole. There is no right hydronephrosis. US/ABD Limited w/ Elastography IMPRESSION: 1. Liver stiffness measures 6.4 kPa compatible with F2-F3 (Mild to moderate liver fibrosis) Metavir score. Electronically Signed: Brian Duran MD at 10:56 EDT ,
== END | disposition home or self-care (01) ==
LOC: US 09:46
PROVIDERS: PCP Family Medicine; Referring Provider Internal Medicine Gastroenterology; Visit Provider Internal Medicine Gastroenterology
DX: D64.9 Anemia, unspecified (principal)
CPT/HCPCS: 76705; 76981

== ENCOUNTER → 2023-11-23 | Outpatient (CLI) | payer MEDICARE, OTHER, SELFPAY | END | disposition home or self-care (01) | LOC: SL 13:57 | PROVIDERS: PCP Family Medicine; Visit Provider Nurse Practitioner Acute Care | DX: Z00.00 Encounter for general adult medical examination without abnormal findings (principal) ==

== ENCOUNTER → 2023-12-23 | Outpatient (CLI) | payer MEDICARE, OTHER, SELFPAY ==
[2023-12-23 16:18] LABS: Absolute Lymphocyte Count 0.89 X10^3/uL (0.83-4.51); Absolute Neutrophil Count 2.9 X10^3/uL (2.0-7.7); Basophil# 0.06 X10^3/uL; Eosinophil# 1.06 X10^3/uL; Eosinophils% 18.3 % (0-5); Hematocrit 37.9 % (40-54); Lymphocyte # 0.89 X10^3/ul (0.83-4.51); Lymphocyte % 15.4 % (19-41); Mean Corpuscular Hgb 28.1 pg (27.0-32.0); Mean Corpuscular Volume 96.9 fL (80-94); Mean Platelet Vol. 11.4 fl (6.2-12.0); Monocyte# 0.58 X10^3/uL; NRBC Flagged by Analyzer 0.3 % (0-5); Neutrophil # 2.91 X10^3/uL (2.7-7.7); Neutrophil % 50.5 % (47-70); POSITIVE MORPHOLOGY YES; Platelet Count 159 K/mm3 (150-450); RBC Distribution Width CV 23.5 % (11.6-14.6); Red Blood Count 3.91 M/mm3 (4.6-6.2); White Blood Count 5.8 K/mm3 (4.4-11.0)
[2023-12-23 16:31] LABS: Ferritin 40 ng/mL (26-388); Iron 147 ug/dL (65-175); Iron Binding Capacity,Total 428 ug/dL (250-450); PERCENT IRON SATURATION 34.3 % (15.0-55.0)
[2023-12-23 16:33] LABS: Differential Indicated SCAN CRITERIA MET
[2023-12-23 16:43] LABS: Anisocytosis 2+; Differential Comment SCANNED
[2023-12-23 16:44] LABS: Macrocytosis 1+; Microcytosis 1+; Ovalocyte RARE; Polychromasia RARE
== END | disposition home or self-care (01) ==
LOC: LAB 14:50
PROVIDERS: Internal Medicine Hematology & Oncology; PCP Family Medicine; Visit Provider Internal Medicine Gastroenterology
DX: D50.0 Iron deficiency anemia secondary to blood loss (chronic) (principal)
CPT/HCPCS: 36415; 82728; 83540; 83550; 85025

== ENCOUNTER → 2024-01-10 | Outpatient (CLI) | payer MEDICARE, OTHER, SELFPAY | END | disposition home or self-care (01) | LOC: SL 13:28 | PROVIDERS: PCP Family Medicine; Referring Provider Nurse Practitioner Acute Care; Visit Provider Nurse Practitioner Acute Care | DX: Z46.89 Encounter for fitting and adjustment of other specified devices (principal) ==

== ENCOUNTER → 2024-01-24 | Outpatient (CLI) | payer MEDICARE, OTHER, SELFPAY ==
[2024-01-24 16:03] LABS: Absolute Lymphocyte Count 0.86 X10^3/uL (0.83-4.51); Absolute Neutrophil Count 3.8 X10^3/uL (2.0-7.7); Basophil# 0.04 X10^3/uL; Basophil% 0.6 % (0-1); Eosinophils% 14.1 % (0-5); Hematocrit 36.2 % (40-54); Hemoglobin 11.3 g/dL (13.0-16.5); Lymphocyte # 0.86 X10^3/ul (0.83-4.51); Lymphocyte % 13.5 % (19-41); Mean Corp Hgb Conc 31.2 g/dL (32-36); Mean Corpuscular Volume 99.5 fL (80-94); Mean Platelet Vol. 11.1 fl (6.2-12.0); Monocyte# 0.51 X10^3/uL; NRBC Flagged by Analyzer 0.3 % (0-5); Neutrophil # 3.83 X10^3/uL (2.7-7.7); Neutrophil % 59.9 % (47-70); POSITIVE MORPHOLOGY YES; Platelet Count 129 K/mm3 (150-450); RBC Distribution Width SD 72.4 fl (35.1-43.9); Red Blood Count 3.64 M/mm3 (4.6-6.2); White Blood Count 6.4 K/mm3 (4.4-11.0)
[2024-01-24 16:08] LABS: Differential Indicated SCAN CRITERIA MET
[2024-01-24 16:36] LABS: Ferritin 36 ng/mL (26-388); Iron 59 ug/dL (65-175); Iron Binding Capacity,Total 377 ug/dL (250-450); PERCENT IRON SATURATION 15.6 % (15.0-55.0)
[2024-01-24 17:49] LABS: Anisocytosis 2+
== END | disposition home or self-care (01) ==
LOC: LAB 14:46
PROVIDERS: PCP Family Medicine; Referring Provider Family Medicine; Visit Provider Family Medicine
DX: I48.91 Unspecified atrial fibrillation (principal); K92.2 Gastrointestinal hemorrhage, unspecified
CPT/HCPCS: 36415; 82728; 83540; 83550; 85025

== ENCOUNTER → 2024-04-04 | Outpatient (CLI) | payer MEDICARE, OTHER, SELFPAY ==
[2024-04-04 17:53] LABS: Free T3 8.1 pg/mL (2.18-3.98); Thyroid Stim Hormone (TSH) < 0.005 uIU/mL (0.358-3.740)
[2024-04-06 16:10] LABS: Thyroglobulin Antibody < 1.0 IU/mL (0.0-0.9); Thyroid Peroxidase AB < 9 IU/mL (0-34)
== END | disposition home or self-care (01) ==
LOC: BFHLAB 15:40
PROVIDERS: PCP Family Medicine; Referring Provider Family Medicine; Visit Provider Family Medicine
DX: E05.90 Thyrotoxicosis, unspecified without thyrotoxic crisis or storm (principal)
CPT/HCPCS: 36415; 84439; 84443; 84481; 86376; 86800

== ENCOUNTER → 2024-04-12 | Outpatient (CLI) | payer MEDICARE, OTHER, SELFPAY ==
--- NOTE | 2024-04-12 07:47 | NM_ITS ---
CLINICAL: 78-year-old male with history of clinical hyperthyroidism. I-123 THYROID UPTAKE and SCAN COMPARISON: None available FINDINGS: The patient was administered a 329 uCi I-123 capsule by mouth. The 4-hour I-123 radioactive iodine thyroidal uptake was calculated to be 1.1% (normal 5 to 25 %). The 24-hour I-123 radioactive iodine thyroidal uptake was calculated to be 0.7 % (normal 5 to [dv]%). The I-123 thyroid scan demonstrates relative nonvisualization of the thyroid colloid commensurate with the uptake values. NM/Thyroid Uptake Single or Mult IMPRESSION: 1. ABNORMAL DECREASED 4- and 24-hour I-123 radioactive iodine thyroidal uptakes. 2. The I-123 thyroid scan is consistent with the presence of the injurious phase of subacute or chronic thyroiditis in the setting of clinical hyperthyroidism. (Kenia et al, Endocrinol Rev 1: 411, 1980). Pending Final Proof Editing
== END | disposition home or self-care (01) ==
PROVIDERS: PCP Family Medicine; Referring Provider Family Medicine; Visit Provider Family Medicine
DX: E05.90 Thyrotoxicosis, unspecified without thyrotoxic crisis or storm (principal)
CPT/HCPCS: 78012; A9516

== ENCOUNTER → 2024-05-08 | Outpatient (CLI) | payer MEDICARE, OTHER, SELFPAY ==
[2024-05-08 13:27] LABS: Free T3 1.8 pg/mL (2.18-3.98); T4 Free Direct 1.21 ng/dL (0.76-1.46); Thyroid Stim Hormone (TSH) < 0.005 uIU/mL (0.358-3.740)
== END | disposition home or self-care (01) ==
LOC: LAB 11:23
PROVIDERS: PCP Family Medicine; Referring Provider Internal Medicine Endocrinology, Diabetes & Metabolism; Visit Provider Internal Medicine Endocrinology, Diabetes & Metabolism
DX: E05.90 Thyrotoxicosis, unspecified without thyrotoxic crisis or storm (principal)
CPT/HCPCS: 36415; 84439; 84443; 84481

== ENCOUNTER → 2024-06-15 | Outpatient (CLI) | payer MEDICARE, OTHER, SELFPAY ==
[2024-06-15 13:32] LABS: Free T3 1.8 pg/mL (2.18-3.98); T4 Free Direct 1.03 ng/dL (0.76-1.46)
== END | disposition home or self-care (01) ==
LOC: LAB 12:28
PROVIDERS: PCP Family Medicine; Referring Provider Internal Medicine Endocrinology, Diabetes & Metabolism; Visit Provider Internal Medicine Endocrinology, Diabetes & Metabolism
DX: E05.90 Thyrotoxicosis, unspecified without thyrotoxic crisis or storm (principal)
CPT/HCPCS: 36415; 84439; 84443; 84481

== ENCOUNTER → 2024-08-16 | Outpatient (CLI) | payer MEDICARE, OTHER, SELFPAY ==
[2024-08-16 09:39] LABS: Cholesterol 149 mg/dL (200); High Density Lipoprotein 55 mg/dL; Triglycerides 123 mg/dL; Very Low Density Lipoprotein 25 mg/dL (5-40)
== END | disposition home or self-care (01) ==
PROVIDERS: PCP Family Medicine; Referring Provider Student in an Organized Health Care Education/Training Program; Visit Provider Student in an Organized Health Care Education/Training Program
DX: E78.5 Hyperlipidemia, unspecified (principal)
CPT/HCPCS: 36415; 80061

== ENCOUNTER → 2024-10-23 | Outpatient (CLI) | payer OTHER, SELFPAY ==
--- NOTE | 2024-10-23 18:52 | CT_ITS ---
PROCEDURE: CHEST WITHOUT CONTRAST 10/23/2024 REASON FOR EXAM: LUNG NODULE TECHNIQUE: Chest CT without contrast. Coronal and Sagittal reconstruction series were provided. One or more dose reduction techniques were used (e.g., Automated exposure control, adjustment of the mA and/or kV according to patient size, use of iterative reconstruction technique FINDINGS: Hardware: None Lymph nodes: Unremarkable. Heart and Vasculature: No cardiomegaly. Atherosclerotic calcifications of the thoracic aorta. Thoracic aorta and pulmonary arteries have normal contours; noncontrast technique limits evaluation. Coronary Artery Calcifications: Present Lungs and Airways: Mild emphysema. No change in the 4 mm noncalcified nodule in the periphery of the lingula on image 92 consistent with a noncalcified granuloma. Also no change in the 6 mm noncalcified nodule in the periphery of the left lower lobe of the lungs on image 96 consistent with a noncalcified granuloma. No new noncalcified nodule or mass. Pleura: No pleural effusion. Upper Abdomen: Unremarkable. Bones: Unremarkable. CT/Chest without Contrast IMPRESSION: Coronary artery calcification (CAC) is is present No active disease. Reading Location: [id number]
== END | disposition home or self-care (01) ==
LOC: CT 18:50
PROVIDERS: PCP Family Medicine; Referring Provider Nurse Practitioner Gerontology; Visit Provider Nurse Practitioner Gerontology
DX: R91.1 Solitary pulmonary nodule (principal)
CPT/HCPCS: 71250

== ENCOUNTER → 2024-12-25 | Outpatient (CLI) | payer MEDICARE, OTHER, SELFPAY ==
--- OUTSIDE RECORDS SUMMARY | 2024-12-25 06:39 | XMS RPT_ITS | CCD ---
Author Organization [facility] [place] [facility] Care Team Providers Care Matting Press Tender Name Role Phone Olga Spears Unavailable Erin Mccracken Unavailable Unavailable Anika Umana Unavailable Unavailable Unavailable Unavailable Dr. Reema Myers Primary Care Provider [phone] Skyler NEEDLEWORKER, NEEDLEWORKER-C Erin Attending Provider Dr. Reema Myers Referring Provider [phone] Dr. Patel Luna Attending Provider Skyler NEEDLEWORKER, NEEDLEWORKER-C Erin Referring Provider KRISTIAN Buckley Attending Provider Dr. Matthew Dodd Attending Provider [phone] Matthew Dodd Referring Provider [phone] Matthew Dodd Other Provider KRISTIAN Buckley Other Provider [phone] Dr. Ramesh Whittington Attending Provider Dr. Reema Myers Primary Care Provider [phone] Dr. Reema Myers Referring Provider KRISTIAN Buckley Attending Provider Dr. Matthew Dodd Attending Provider [phone] Matthew Dodd Referring Provider [phone] Matthew Dodd Other Provider KRISTIAN Buckley Other Provider Dr. Ramesh Whittington Attending Provider Dr. Reema Myers Primary Care Provider [phone] Dr. Reema Myers Referring Provider KRISTIAN Buckley Attending Provider Dr. Chemo Aldrich Attending Provider Ruth Bravo Attending Provider Unavailable Skyler NUR, NEEDLEWORKER-C Erin Attending Provider Dr. Reema Myers Primary Care Provider [phone] Dr. Reema Myers Referring Provider Dr. Matthew Dodd Attending Provider [phone] KRISTIAN Buckley Attending Provider Dr. Reema Myers Primary Care Provider [phone] Reema Myers Referring Provider Dr. Reema Myers Other Provider Dr. Ramesh Whittington Attending Provider Dr. Chemo Aldrich Attending Provider Rohan NEEDLEWORKER, NEEDLEWORKER-C Lisa Attending Provider Dr. Reema Myers Primary Care Provider [phone] Dr. Reema Myers Referring Provider Dr. Reema Myers Other Provider Dr. Ramesh Whittington Attending Provider Dr. Chemo Aldrich Attending Provider Rohan NUR, NEEDLEWORKER-C Lisa Attending Provider [phone] Dr. Lilly Navarrete Attending Provider Dr. Lilly Navarrete Other Provider Dr. Reema Myers Primary Care Provider [phone] Dr. Reema Myers Referring Provider Dr. Reema Myers Other Provider Dr. Ramesh Whittington Attending Provider Dr. Matthew Dodd Attending Provider Dr. Reema Myers Primary Care Provider Dr. Reema Myers Referring Provider Dr. Fitz Denney Emergency Provider Maikol TOWNSEND PA-C Marcela Attending Provider Dr. Fitz Denney Emergency Provider [phone] Robreto Hussein Admit Provider Dr. Roberto Hussein Other Provider Dr. Freddie Ortiz Attending Provider Dr. Freddie Ortiz Other Provider Dr. Amber Fang Other Provider Dr. Amber Fang Attending Provider Dr. Shawn Moore Attending Provider REEMA MYERS Primary Care Unavailable JACQUELINE SULLIVAN Referring Unavailab RICK Brooke Attending Unavailable Dr. Reema Myers MD Primary Care Provider Buck Sweeney Attending Provider Buck Sweeney Referring Provider Dr. Reema Myers MD Referring Provider Dr. Tamie Coleman MD Attending Provider Dr. Tamie Coleman MD Referring Provider Rohan NUR-CLisa Other Provider Nate NUR-CJacqueline Attending Provider Nate NUR-CJacqueline Referring Provider Lázaro NUR-CPayal Attending Provider Miedel, Reema Referring Unavailable Payal Sesay Attending Unavailable Miedel, Reema Primary Care Unavailable Miedel, Reema Referring Unavailable Chet, Tariq Attending Unavailable Miedel, Reema Primary Care Unavailable Miedel, Reema Referring Unavailable Buck Larsen Attending Unavailable Miedel, Reema Primary Care Unavailable NateJacqueline N Referring Unavailable Jacqueline Sullivan N Attending Unavailable Rohan NEEDLEWORKER, Lisa Consulting Unavailable Miedel, Reema Primary Care Unavailable Isckarus, Mansour Referring Unavailable Isckarus, Mansour Attending Unavailable Miedel, Reema Primary Care Unavailable Easton PA, Rick Peterson Referring Unavail able Rick Buckley Attending Unavail able Miedel, Reema Attending Unavailable Miedel, Erema Primary Care Unavailable Miedel, Reema Referring Unavailable Chet, Tariq Attending Unavailable Miedel, Reema Primary Care Unavailable Chet, Tariq Referring Unavailable Friend, Kaushal Attending Unavailable Miedel, Reema Primary Care Unavailable Miedel, Reema Referring Unavailable Miedel, Reema Primary Care Unavailable Rohan NEEDLEWORKER, Lisa Attending Unavailable Miedel, Reema Primary Care Unavailable Miedel, Reema Referring Unavailable Isckarus, Mansour Attending Unavailable Miedel, Reema Primary Care Unavailable Chet, Tariq Attending Unavailable Miedel, Reema Referring Unavailable Miedel, Reema Primary Care Unavailable Chet, Tariq Attending Unavailable Miedel, Reema Referring Unavailable Miedel, Reema Primary Care Unavailable Rohan NEEDLEWORKER, Lisa Attending Unavailable Miedel, Reema Referring Unavailable Miedel, Reema Referring Unavailable Miedel, Reema Primary Care Unavailable Erin Holland NP Attending Unavailable Miedel, Reema Referring Unavailable Friend, Kaushal Attending Unavailable Miedel, Reema Primary Care Unavailable Miedel, Reema Primary Care Unavailable Miedel, Reema Referring Unavailable Isckarus, Mansour Attending Unavailable Miedel, Reema Primary Care Unavailable Rohan NEEDLEWORKER, Lisa Referring Unavailable Rohan NEEDLEWORKER, Lisa Attending Unavailable Miedel, Reema Primary Care Unavailable Chet, Tariq Referring Unavailable Chet, Tariq Attending Unavailable Miedel, Reema Attending Unavailable Miedel, Reema Referring Unavailable InReema cervantes Primary Care Unavailable Reema yMers Attending Unavailable InReema cervantes Primary Care Unavailable Reema Myers Referring Unavailable InReema cervantes Primary Care Unavailable Buck Larsen Referring Unavailable Buck Larsen Attending Unavailable Reema Myers Attending Unavailable Reema Myers Primary Care Unavailable Reema Myers Referring Unavailable Medications Current Medications Medication Drug Class(es) Dates Sig (Normalized) Sig (Original) albuterol 0.833 mg/ml / ipratropium bromide 0.167 mg/ml inhalation solution (2 sources) Anticholinergic, beta2-Adrenergic Agonist Start: 12-13-2024 Ipratropium-Albute rol (Combivent Respimat) 20-100 mcg/actuation mist Active INHALATION December 13, 2024 12:00am Start: 12-13-2024 Ipratropium-Al buterol 0.5 mg-3 mg(2.5 mg base)/3 mL solution for nebulization Active mL INHALATION December 13, 2024 12:00am apixaban 2.5 mg oral tablet (20 sources) Factor Xa Inhibitor Start: 03-06-2024 take 1 tablet by mouth twice daily Apixaban (Eliquis) 2.5 mg tablet Active 2.5 mg PO TWICE A DAY March 06, 2024 12:00am Start: 02-10-2024 End: 03-06-2024 take 1 tablet by mouth twice daily Apixaban (Eliquis) 5 mg tablet Discontinued 5 mg PO TWICE A DAY 60 February 10, 2024 3:43pm March 06, 2024 4:22pm Start: 03-18-2021 End: 02-02-2024 take 1 tablet by mouth twice daily Apixaban (Eliquis) 5 mg tablet Discontinued 5 mg PO TWICE A DAY 60 March 18, 2021 12:00am February 02, 2024 10:23am atorvastatin 40 mg oral tablet (20 sources) HMG-CoA Reductase Inhibitor Start: 03-18-2021 take 1 tablet by mouth at bedtime Atorvastatin 40 mg tablet Active 40 mg PO AT BEDTIME March 18, 2021 12:00am Start: 04-29-2011 End: 02-05-2012 take 1 tablet by mouth once daily LIPITOR, 10MG (Oral Tablet) 1 Tablet qd for 0 days Quantity: 90 {Tablet} Refills: 3 Ordered: 29-Apr-2011 Bell Thomas RN Start : 29-Apr-2011 End : 05-Feb-2012 Discontinued docusate sodium 100 mg oral capsule (14 sources) Start: 07-01-2023 take 1 capsule by mouth twice daily Docusate Sodium 100 mg capsule Active 100 mg PO TWICE A DAY July 01, 2023 1:00am ferrous sulfate (2 sources) Start: 12-13-2023 take 1 tablet by mouth once daily Ferrous Sulfate (Feosol) 325 mg (65 mg iron) tablet Active 650 mg PO DAILY December 13, 2023 9:33am Start: 12-08-2023 End: 12-13-2023 take 1 tablet by mouth once daily Ferrous Sulfate (Feosol) 325 mg (65 mg iron) tablet Discontinued 325 mg PO DAILY December 08, 2023 12:00am December 13, 2023 9:34am metoprolol tartrate 25 mg oral tablet (20 sources) beta-Adrenergic Lm Start: 01-11-2024 take 1 tablet by mouth twice daily Metoprolol Tartrate 25 mg tablet Active 25 mg PO TWICE A DAY January 11, 2024 12:00am Start: 11-06-2023 End: 01-11-2024 Metoprolol Tartrate 50 mg ta blet Discontinued 25 mg PO TWICE A DAY November 12, 2023 1:03pm January 11, 2024 9:51am Decrease to 25mg until follow up with cardiology Start: 02-02-2023 End: 11-06-2023 take 1 tablet by mouth twice daily Metoprolol Tartrate 50 mg tablet Discontinued 50 mg PO TWICE A DAY February 02, 2023 12:00am November 06, 2023 4:03pm Start: 03-18-2021 End: 03-18-2021 take 1 tablet by mouth twice daily Metoprolol Tartrate 25 mg tablet Discontinued 25 mg PO TWICE A DAY March 18, 2021 12:00am March 18, 2021 1:08pm Start: 08-23-2015 End: 02-02-2023 Metoprolol Tartrate 50 mg ta blet Discontinued 25 mg PO TWICE A DAY March 18, 2021 12:00am February 02, 2023 10:12am Start: 08-23-2015 End: 02-02-2023 take 25 mg by mouth twice daily Metoprolol Tartrate Di scontinued 25 MG PO TWICE A DAY March 18, 2021 12:00am February 02, 2023 10:12am Start: 02-18-2015 take 0.5 tablet by m outh twice daily LOPRESSOR, 50MG (Oral Tablet) 1/2 Tablet bid for 0 days Quantity: 30 {Tablet} Refills: 6 Ordered: 18-Feb-2015 Olga Spears DO, DO, Kathleen Start : 18-Feb-2015 Active Cherokee-3 Fatty Acids-Fish Oil (20 sources) Start: 05-31-2019 Cherokee-3 Fatty Acids-Fish Oil Active 3 EACH PO TWICE A DAY May 31, 2019 11:06am Start: 05-31-2019 Cherokee-3 Fatty Acids-Fish Oil Active 3 EACH PO TWICE A DAY May 31, 2019 12:00am Start: 05-31-2019 Cherokee-3 Fatty Acids-Fish Oil Active 3 EACH PO TWICE A DAY May 31, 2019 1:00am SITagliptin 50 mg oral tablet (1 source) Dipeptidyl Peptidase 4 Inhibitor Start: 12-13-2024 take 1 tablet by mouth once daily Sitagliptin Phosphate 50 mg tablet Active 50 mg PO DAILY December 13, 2024 12:00am Completed/Discontinued Medications Medication Drug Class(es) Dates Sig (Normalized) Sig (Original) acetaminophen 325 mg / HYDROcodone bitartrate 5 mg oral tablet (20 sources) Opioid Agonist Start: 06-07-2019 End: 06-14-2019 Hydrocodone-Acetami nophen 1 EACH tablet Discontinued 1 NMA PO EVERY 4 HOURS NEEDED as needed for Pain Score 1-10/10 14 5 June 07, 2019 June 11, 2019 1:00am June 14, 2019 1:12am Start: 06-07-2019 End: 06-14-2019 Hydrocodone-Acetaminophen Di scontinued 1 EACH PO EVERY 4 HOURS NEEDED 14 June 07, 2019 June 14, 2019 1:12am 200 actuat albuterol 0.09 mg/actuat metered dose inhaler (2 sources) beta2-Adrenergic Agonist Start: 07-02-2008 End: 01-04-2009 PROVENTIL HFA, 108 (90 Base)MCG/ACT (Inhalation Aerosol Solution) 2 (two) Aerosol Soln TID for 0 days Quantity: 1 {Aerosol_Soln} Refills: 0 Ordered: 02-Jul-2008 EMILY Payne Start : 02-Jul-2008 End : 04-Jan-2009 Inactive Comments: THAI Start: 09-05-2007 End: 09-23-2007 PROAIR HFA, 108 (90 Base)MCG /ACT (Inhalation Aerosol Solution) 2 (two) Aerosol Soln TID PRN for 0 days Quantity: 1 {Aerosol_Soln} Refills: 0 Ordered: 05-Sep-2007 Erin Mccracken LPN Start : 05-Sep-2007 End : 23-Sep-2007 Inactive Comment on above: THAI amiodarone hydrochloride 200 mg oral tablet (20 sources) Antiarrhythmic Start: 02-11-20 End: 11-12-19 24 take 1 tablet by mouth once daily Amiodarone 200 mg tablet Discontinued 200 mg PO DAILY February 02, 2023 4:54pm November 12, 2023 1:17pm amitriptyline hydrochloride 50 mg oral tablet (1 source) Tricyclic Antidepressant End: 10-30-19 07 take 1 tablet by mouth once daily at bedtime AMITRIPTYLINE HCL, 50MG (Oral Tablet) 1 QHS / HS for 0 days Refills: 0 Ordered: 31-Oct-2006 Mast Bell HINES End : 29-Oct-2006 Discontinued amoxicillin 875 mg / clavulanate 125 mg oral tablet (18 sources) Penicillin-class Antibacterial Start: 02-05-20 23 End: 07-01-19 24 Amoxicillin-Pot Clavulanate 875-125 mg tablet Discontinued 1 {tbl} PO TWICE A DAY February 04, 2023 12:00am July 01, 2023 1:41pm Start: 02-04-2023 End: 07-01-2023 take 1 tablet by mouth twice daily Amoxicillin-Pot Clavulanate Discontinued 1 TABLET PO TWICE A DAY February 04, 2023 12:00am July 01, 2023 1:41pm Start: 06-01-2011 End: 06-15-2011 take 1 tablet by mouth twice daily AUGMENTIN, 875-125MG (Oral Tablet) 1 Tablet bid for 14 days Quantity: 28 {Tablet} Refills: 0 Ordered: 01-Jun-2011 Erin Mccracken LPN Start : 01-Jun-2011 End : 15-Jun-2011 Inactive aspirin 81 mg delayed release oral tablet (20 sources) Platelet Aggregation Inhibitor, Nonsteroidal Anti-inflammatory Drug Start: 03-18-2021 End: 03-18-2021 take 1 tablet by mouth once daily Aspirin (Adult Aspirin Regimen) 81 mg tablet,delayed release (DR/EC) Discontinued 81 mg PO DAILY March 18, 2021 12:00am March 18, 2021 1:51pm Start: 05-31-2019 End: 06-07-2019 take 1 tablet by mouth once daily Aspirin 81 MG tablet,delayed release (DR/EC) Discontinued 81 mg PO DAILY May 31, 2019 1:00am June 07, 2019 2:07pm azithromycin 250 mg oral tablet (1 source) Macrolide Antimicrobial Start: 02-02-2024 End: 02-10-2024 take 2-5 tablets by mouth once daily Azithromycin 250 mg tablet Discontinued 0 PO .COMPLEX 6 February 02, 2024 12:00am February 10, 2024 2:36pm take 500 mg today (day 1), then 250 mg for 4 days (days 2-5) PO Blood-Glucose Sensor (Freestyle Kel 3 Plus Sensor) device (1 source) Start: 07-10-2024 End: 07-10-2024 Blood-Glucose Sensor (Freestyle Kel 3 Plus Sensor) device Discontinued 0 .Route 2 July 10, 2024 1:00am July 10, 2024 4:50pm As directed ciprofloxacin 500 mg oral tablet (20 sources) Quinolone Antimicrobial Start: 06-07-2019 End: 03-18-2021 take 1 tablet by mouth twice daily Ciprofloxacin Hcl 500 MG tablet Discontinued 500 mg PO TWICE A DAY June 07, 2019 1:00am March 18, 2021 6:53am diphenhydrAMINE hydrochloride 25 mg oral capsule (1 source) Histamine-1 Receptor Antagonist Start: 04-23-2006 End: 09-23-2007 take 1 capsule by mouth once daily at bedtime BENADRYL, 25MG (Oral Capsule) 1 (one) Capsule QHS / HS for 0 days Refills: 0 Ordered: 23-Apr-2006 Erin Mccracken LPN Start : 23-Apr-2006 End : 23-Sep-2007 Inactive furosemide 40 mg oral tablet (11 sources) Loop Diuretic Start: 09-09-2023 End: 10-19-2023 take 1 tablet by mouth once daily Furosemide 40 mg tablet Discontinued 40 mg PO .COMPLEX 5 September 09, 2023 12:00am October 19, 2023 8:45am 40 mg orally daily for 5 days.; levoFLOXacin 500 mg oral tablet (1 source) Quinolone Antimicrobial Start: 07-02-2008 End: 01-04-2009 take 1 tablet by mouth once daily LEVAQUIN, 500MG (Oral Tablet) 1 Tablet Daily for 0 days Quantity: 14 {Tablet} Refills: 0 Ordered: 02-Jul-2008 EMILY Payne Start : 02-Jul-2008 End : 04-Jan-2009 Inactive nabumetone 750 mg oral tablet (1 source) Nonsteroidal Anti-inflammatory Drug End: 10-29-2006 take 2 tablets by mouth once daily NABUMETONE, 750MG (Oral Tablet) 2 QD for 0 days Refills: 0 Ordered: 31-Oct-2006 Bell Thomas RN End : 29-Oct-2006 Discontinued olmesartan medoxomil 20 mg oral tablet (1 source) Angiotensin 2 Receptor Lm Start: 04-29-2011 End: 02-05-2012 take 1 tablet by mouth once daily BENICAR, 20MG (Oral Tablet) 1 Tablet QD for 0 days Quantity: 90 {Tablet} Refills: 3 Ordered: 29-Apr-2011 Bell Thomas RN Start : 29-Apr-2011 End : 05-Feb-2012 Discontinued Cherokee-3 Fatty Acids-Fish Oil 1 EACH capsule (1 source) Start: 05-31-2019 End: 05-18-2024 Cherokee-3 Fatty Acids-Fish Oil 1 EACH capsule Discontinued 3 NMA PO TWICE A DAY May 31, 2019 1:00am May 18, 2024 3:27pm predniSONE 10 mg oral tablet (3 sources) Start: 04-13-2024 End: 06-06-2024 take 1 tablet by mouth once daily Prednisone 10 mg tablet Discontinued 10 mg PO .COMPLEX 40 April 13, 2024 12:00am June 06, 2024 9:28am 10 mg orally 2 tablets daily for 10 days, then one tablet daily; see taper instructions Start: 02-02-2024 End: 02-10-2024 take 3 tablets by mouth once daily at mealtime Prednisone 20 mg tablet Discontinued 60 mg PO daily February 02, 2024 12:00am February 10, 2024 2:36pm administer with food or milk Start: 09-05-2007 End: 09-23-2007 take 1 tablet by mouth once daily PREDNISONE, 20MG (Oral Tablet) 1 Tablet Daily for 0 days Quantity: 3 {Tablet} Refills: 0 Ordered: 05-Sep-2007 Erin Mccracken LPN Start : 05-Sep-2007 End : 23-Sep-2007 Inactive simvastatin 40 mg oral tablet (20 sources) HMG-CoA Reductase Inhibitor Start: 08-23-2015 End: 03-18-2021 take 2 tablets by mouth at bedtime Simvastatin 40 MG tablet Discontinued 80 mg PO AT BEDTIME August 23, 2015 1:00am March 18, 2021 6:54am Start: 08-23-2015 End: 03-18-2021 take 80 mg by mouth at bedtime Simvastatin Discontinue d 80 MG PO AT BEDTIME August 23, 2015 1:00am March 18, 2021 6:54am Start: 02-18-2015 take 1 tablet by carlitos th once daily at bedtime SIMVASTATIN, 80MG (Oral Tablet) 1 (one) Tablet QHS / HS for 0 days Quantity: 30 {Tablet} Refills: 6 Ordered: 18-Feb-2015 Olga Spears DO, DO, Kathleen Start : 18-Feb-2015 Active tamsulosin hydrochloride 0.4 mg oral capsule (1 source) alpha-Adrenergic Lm End: 09-23-2007 take 2 capsules by mouth once daily FLOMAX, 0.4MG (Oral Capsule Extended Release 24 Hour) 2 qd for 0 days Refills: 0 Ordered: 23-Sep-2007 Erin Mccracken LPN End : 23-Sep-2007 Inactive tiotropium 0.018 mg inhalant powder (1 source) Anticholinergic Start: 08-28-2010 End: 10-04-2012 take 1 capsule by inhalation once daily SPIRIVA HANDIHALER, 18MCG (Inhalation Capsule) 1 Capsule qd for 0 days Quantity: 30 {Capsule} Refills: 3 Ordered: 04-Oct-2012 Erin Mccracken LPN Start : 28-Aug-2010 End : 04-Oct-2012 Inactive Problems Active Problems Problem Classification Problem Date Documented Da te Episodic/Chronic Cardiac dysrhythmias (20 sources) Atrial fibrillation; Translations: [Unspecified atrial fibrillation] Onset: Chronic Chronic obstructive pulmonary disease and bronchiectasis (20 sources) Chronic obstructive lung disease; Translations: [Chronic obstructive pulmonary disease, unspecified] 05-20-2015 Chronic Chronic obstructive pulmonary disease and bronchiectasis (2 sources) Chronic obstructive pulmonary disease and bronchiectasis Conditions associated with dizziness or vertigo (20 sources) Dizziness; Translations: [Dizziness and giddiness] Resolved: 9 05-13-2015 Episodic Comment on above: some orthostatis rae k about increase fliuds some vertigo signs and symptoms and getting better Coronary atherosclerosis and other heart disease (2 sources) Calcification of coronary artery; Translations: [Atherosclerotic heart disease of [place] coronary artery without angina pectoris] Onset: 5 11-24-2024 Chronic Deficiency and other anemia (2 sources) Iron deficiency anemia due to blood loss; Translations: [Iron deficiency anemia secondary to blood loss (chronic)] 12-08-2023 Chronic Deficiency and other anemia (2 sources) Iron deficiency anemia secondary to blood loss (chronic); Translations: [Iron deficiency anemia secondary to blood loss (chronic)] Onset: Chronic Deficiency and other anemia (7 sources) Anemia; Translations: [Anemia, unspecified] 09-29-2023 Episodic Deficiency and other anemia (9 sources) Anemia, unspecified; Translations: [Anemia, unspecified] Onset: 5 09-29-2023 Episodic Diabetes mellitus without complication (7 sources) Abnormal glucose tolerance test; Translations: [Hyperglycemia] Onset: 5 05-20-2015 Episodic Comment on above: new dx-- pt doing ph ase 1diet and dietary chg before meds Diseases of white blood cells (17 sources) Leukocytosis; Translations: [Elevated white blood cell count, unspecified] 02-03-2023 Chronic Disorders of lipid metabolism (20 sources) Hypercholesterolemia; Translations: [Hyperlipidemia] Onset: 5 05-20-2015 Chronic Essential hypertension (20 sources) Benign essential hypertension; Translations: [Essential hypertension] Onset: 05-20-2015 Chronic Comment on above: CONTROLLED WITH MED Gastrointestinal hemorrhage (7 sources) Acute gastrointestinal hemorrhage; Translations: [Gastrointestinal hemorrhage, unspecified] 11-04-2023 Episodic Hyperplasia of prostate (8 sources) Benign prostatic hypertrophy without outflow obstruction; Translations: [Benign prostatic hyperplasia] 05-20-2015 Chronic Comment on above: stable Immunizations and screening for infectious disease (5 sources) Need for prophylactic vaccination and inoculation against influenza Episodic Malaise and fatigue (20 sources) Fatigue; Translations: [Other fatigue] Onset: Episodic Other aftercare (20 sources) Long-term current use of anticoagulant; Translations: [custodial (current) use of 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] 02-02-2023 Episodic Other aftercare (17 sources) Drug therapy finding; Translations: [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) drug therapy] 02-04-2023 Episodic Other aftercare (3 sources) continuing education specialist (current) use of 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; Translations: [Long-term (current) use of 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] 11-04-2023 Episodic Other circulatory disease (1 source) Elevated blood-pressure reading without diagnosis of hypertension; Translations: [Elevated blood-pressure reading without diagnosis of hypertension] 05-20-2015 Episodic Other circulatory disease (2 sources) Abnormal chest sounds; Translations: [Abnormal lung sounds] Resolved: 05-20-2015 Episodic Other gastrointestinal disorders (11 sources) Dark stools; Translations: [Other fecal abnormalities] 09-10-2023 Episodic Other gastrointestinal disorders (4 sources) Swollen abdomen; Translations: [Abdominal distension (gaseous)] 11-04-2023 Episodic Other hematologic conditions (1 source) Secondary polycythemia; Translations: [Polycythemia, secondary] 06-06-2015 Episodic Other hematologic conditions (11 sources) Hemoglobin low; Translations: [Precipitous drop in hematocrit] 09-10-2023 Episodic Other lower respiratory disease (19 sources) Dyspnea; Translations: [Shortness of breath] 05-20-2015 Episodic Other lower respiratory disease (17 sources) Productive cough ; Translations: [Productive cough] 02-03-2023 Episodic Other lower respiratory disease (13 sources) Nodule of lung; Translations: [Solitary pulmonary nodule] 08-13-2023 Episodic Comment on above: 07/09/23 nodules iden tified on LDCT Other lower respiratory disease (12 sources) Solitary pulmonary nodule; Translations: [Solitary pulmonary nodule] Onset: 5 08-13-2023 Episodic Other lower respiratory disease (4 sources) Dyspnea on exertion; Translations: [Other forms of dyspnea] 11-04-2023 Episodic Other lower respiratory disease (4 sources) Shortness of breath; Translations: [Shortness of breath] Onset: 5 11-04-2023 Episodic Other lower respiratory disease (2 sources) Other forms of dyspnea; Translations: [Other respiratory abnormalities] 11-04-2023 Episodic Other male genital disorders (4 sources) Impotence; Translations: [Erectile dysfunction] 05-20-2015 Chronic Other nervous system disorders (2 sources) Tremor Episodic Other nervous system disorders (1 source) Abnormal involuntary movement; Translations: [Unspecified abnormal involuntary movements] 05-22-2015 Episodic Other nutritional; endocrine; and metabolic disorders (2 sources) Body mass index 30+ - obesity; Translations: [BMI 33.0-33.9,adult] 05-21-2015 Chronic Other nutritional; endocrine; and metabolic disorders (20 sources) Obesity; Translations: [Obesity, unspecified] 03-18-2021 Chronic Other nutritional; endocrine; and metabolic disorders (1 source) Excessive thirst; Translations: [Polydipsia] 08-08-2015 Episodic Other nutritional; endocrine; and metabolic disorders (10 sources) Weight gain; Translations: [Abnormal weight gain] 09-09-2023 Episodic Other nutritional; endocrine; and metabolic disorders (1 source) Weight increased; Translations: [Abnormal weight gain] 09-09-2023 Episodic Other screening for suspected conditions (not mental disorders or infectious disease) (2 sources) Blood chemistry abnormal; Translations: [Raised prostate specific antigen] 05-20-2015 Episodic Other upper respiratory disease (2 sources) Allergic rhinitis; Translations: [Allergic rhinitis] 05-20-2015 Chronic Other upper respiratory infections (5 sources) Acute sinusitis; Translations: [Acute sinusitis, unspecified] Onset: 1 05-20-2015 Episodic Pneumonia (except that caused by tuberculosis or sexually transmitted disease) (2 sources) Pneumonia due to other specified bacteria; Translations: [Bacterial pneumonia] Resolved: 9 07-18-2014 Episodic Comment on above: WALKING Rehabilitation care; fitting of prostheses; and adjustment of devices (1 source) Encounter for fitting and adjustment of other specified devices; Translations: [Encounter for fitting and adjustment of other specified devices] Onset: 4 Chronic Residual codes; unclassified (1 source) Organic insomnia, unspecified; Translations: [DISORDERS, ORGANIC INSOMNIA, UNSPECIFIED] 05-20-2015 Chronic Residual codes; unclassified (1 source) Tobacco user; Translations: [Tobacco abuse] 05-20-2015 Chronic Residual codes; unclassified (12 sources) Daytime hypersomnia; Translations: [Hypersomnia, unspecified] 08-13-2023 Chronic Residual codes; unclassified (11 sources) Hypersomnia, unspecified; Translations: [Hypersomnia, unspecified] 08-13-2023 Chronic Residual codes; unclassified (8 sources) Sleep apnea; Translations: [Sleep apnea, unspecified] 09-21-2023 Chronic Residual codes; unclassified (5 sources) Central sleep apnea syndrome; 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] 10-26-2023 Chronic Residual codes; unclassified (1 source) Needs influenza immunization; Translations: [Need for prophylactic vaccination and inoculation against influenza] 05-20-2015 Episodic Residual codes; unclassified (19 sources) History of cardioversion; Translations: [Other specified postprocedural states] 02-09-2022 Episodic Residual codes; unclassified (17 sources) Edema of lower extremity; Translations: [Localized edema] 02-02-2023 Episodic Residual codes; unclassified (3 sources) Localized edema; Translations: [Edema] 11-04-2023 Episodic Substance-related disorders (20 sources) Tobacco dependence syndrome; Translations: [Nicotine dependence, unspecified, uncomplicated] 01-28-2022 Chronic Comment on above: quit 02/2021 Thyroid disorders (3 sources) Thyrotoxicosis; Translations: [Thyrotoxicosis, unspecified without thyrotoxic crisis or storm] 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) Unclassified (4 sources) SCREENING FOR CANCER OF THE PROSTATE (V76.44) Unclassified (2 sources) Screening status; Translations: [Screening for prostate cancer] 05-20-2015 Past or Other Problems Problem Classification Problem Date Documented Date Episodic/Chronic Chronic obstructive pulmonary disease and bronchiectasis (1 source) Bronchitis; Translations: [Bronchitis] Resolved: 11-15-2008 04-02-2015 Episodic Conditions associated with dizziness or vertigo (2 sources) Conditions associated with dizziness or vertigo Other inflammatory condition of skin (1 source) Unspecified pruritic disorder; Translations: [PRURITUS OF SKIN, NOS] Resolved: 10-25-2009 07-18-2014 Episodic Comment on above: i think itching from polycythemia -- rec derm to eval any other etiology - pt declined and will entertain if persistent Pneumonia (except that caused by tuberculosis or sexually transmitted disease) (1 source) Pneumonia (except that caused by tuberculosis or sexually transmitted disease) Residual codes; unclassified (1 source) Requires vaccination; Translations: [Need for vaccination against Streptococcus pneumoniae] 05-20-2015 Unclassified (1 source) Patient encounter status; Translations: [Annual Medicare Physical] 05-20-2015 Unclassified (2 sources) Prostate sx 05-20-2015 Comment on above: 2006 Unclassified (3 sources) PRURITUS OF SKIN, NOS (698.9) Unclassified (1 source) Tobacco abuse (305.1) Unclassified (1 source) DISORDERS, ORGANIC INSOMNIA, UNSPECIFIED (327.00) Unclassified (3 sources) Annual Medicare Physical (V70.0) Unclassified (1 source) BMI 33.0-33.9, ADULT (V85.33) Unclassified (1 source) BMI 32.0-32.9, ADULT (V85.32) Results Test Name Value Interpretation Reference Range Facility Pulmonary Visit Reporton Pulmonary Visit Report [facility] [address] [place] [address] OFFICE VISIT Date of Service: 12/13/24 MR#: [id number] Acct: [id number] Name: ANJUM SERRANO Rep #: [id number] : 1945 Provider: Payal Sesay NP Age/Sex: 79/M Location: [facility].PM[facility] Status: Signed Assessment and Plan Assessment and Plan (1) Central sleep apnea: Status: Acute Plan: Uncontrolled today. I believe that his apnea index is elevated due to the leak identified on the compliance download. I have recommended that he change out his supplies now. If this does not improve the leak then he should follow-up with RT for a mask fit. PAP education has been ordered accordingly. I have also recommended a nocturnal oximetry prior to follow-up in 3 months along with repeating the compliance download at that time. I have discussed the relationship between the cardiovascular disease that is present and sleep apnea. The patient understands the importance of good control of sleep disordered breathing. He is encouraged to continue with good compliance with therapy. (2) COPD (chronic obstructive pulmonary disease): Status: Chronic Qualifiers: COPD type: emphysema Emphysema type: centrilobular Qualified Code(s): J43.2 - Centrilobular emphysema Plan: Not requiring daily maintenance medications at this time. No indication for antibiotics or steroids. No additional testing at this time. He has been encouraged contact the office with any acute symptoms. (3) Lung nodule: Status: Acute Comment: 07/09/23 nodules identified on LDCT Plan: Stable CT. Repeat the noncontrasted chest CT in September 2025, ordered accordingly today, and this will complete the monitoring for the lung nodules that have been identified. Orders: Orders Self Mgmnt Educ Training 01/04/25 G47.31 - Primary central sleep apnea Chest without Contrast 09/26/25 R91.1 - Solitary pulmonary nodule Plan Continue to follow with cardiology. The patient does report that his blood pressure is lower than it usually falls on today's visit. The patient indicates that there are plans to proceed with further cardiac workup. I have recommended that he continue to monitor his blood pressure at home. Plan Details Follow Up: 3 Months (LMR) HPI HPI Comments Details: This patient presents to the office today to discuss test results. He is ambulatory and currently on room air. He has not recently been seen in the ED or urgent care for any respiratory illness. He has not required any antibiotics or prednisone for any breathing problems. He is not currently on any maintenance inhalers. He does use Combivent on occasion. He denies shortness of breath on exertion. He has a cough that is productive of clear-colored sputum. He denies any wheezing, chest tightness, chest pain or palpitations. He denies any fever, chills or body aches. He wakes up feeling rested and refreshed. He has not required naps. He does report some difficulty with mask leaks and dry mouth. He denies morning headaches. He has a urinary catheter. He does nap when he sits down. He is using a FFM. He reports that his supplies are old and outdated and need to be replaced. He has a different style of facemask available at home to utilize. Former smoker and quit 30 years ago then 10 years ago he started again. He has since stopped for 2-3 years. Documentation reviewed with patient today includes: Chest CT without contrast from October 23, 2024 shows coronary artery calcification present, no active pulmonary disease. There is mild emphysema. No change in the 4 mm noncalcified nodule in the peripheral lingula on image 92. Consistent with a noncalcified granuloma. No change of the 6 mm noncalcified nodule in the peripheral left lower lobe consistent with a noncalcified granuloma. Compliance download from December 12, 2023 shows use of ASV device at EPAP of 8 cm, pressure support 6 to 17 cm. 100% compliant with therapy, using the device 6 hours and 58 minutes nightly average. There is a large air leak present. AHI is 14.4. Intake Vital Signs 06/06/24 08:23 12/13/24 08:20 Height 6 ft 1 in 6 ft 1 in Weight: 231 lb BMI 30.4 BP 95/64 Blood Pressure Location Lt brachial Position Sitting Respiration 16 Pulse 74 Pulse Source Monitor Temp 97.4 F L Temperature Source Temporal Artery Pulse Oximetry (%) 93 Oxygen Delivery Method room air Intake Visit Reasons: 6 M FU Chief Complaint: thyrotoxicosis Media Production Support Manager Required: No DME Vendor: [employer] Accompanied by: Self Is patient in pain?: No Allergies No Known Allergies Allergy (Verified 12/13/24 14:15) Medications ???Medication ???Instructions ???Recorded ???Confirmed ???Type atorvastatin 40 mg tablet 40 mg PO QHS 03/18/21 12/13/24 His tory docusate sodi (more content not included)... Normal [facility] Chest without Contraston Chest without Contrast [facility] Imaging Services [facility] [address] [place], [place] [address] Chest without Contrast MR#: [id number] Acct: [id number] Name: ANJUM SERRANO Rep #: [id number] : 1945 M 79 From: William Peter MD PCP: Dr. Reema Myers MD Status: REG CLI Study: Chest without Contrast Date of Exam: 10/23/24 Exam# [id number] Ordering Dr: Lisa Madrigal NP NEEDLEWORKER-C PROCEDURE: CHEST WITHOUT CONTRAST 10/23/2024 REASON FOR EXAM: LUNG NODULE TECHNIQUE: Chest CT without contrast. Coronal and Sagittal reconstruction series were provided. One or more dose reduction techniques were used (e.g., Automated exposure control, adjustment of the mA and/or kV according to patient size, use of iterative reconstruction technique FINDINGS: Hardware: None Lymph nodes: Unremarkable. Heart and Vasculature: No cardiomegaly. Atherosclerotic calcifications of the thoracic aorta. Thoracic aorta and pulmonary arteries have normal contours; noncontrast technique limits evaluation. Coronary Artery Calcifications: Present Lungs and Airways: Mild emphysema. No change in the 4 mm noncalcified nodule in the periphery of the lingula on image 92 consistent with a noncalcified granuloma. Also no change in the 6 mm noncalcified nodule in the periphery of the left lower lobe of the lungs on image 96 consistent with a noncalcified granuloma. No new noncalcified nodule or mass. Pleura: No pleural effusion. Upper Abdomen: Unremarkable. Bones: Unremarkable. CT/Chest without Contrast IMPRESSION: Coronary artery calcification (CAC) is is present No active disease. Reading Location: [facility] CC: NEEDLEWORKER-C Lisa Madrigal; Dr. Reema Myers MD Grocery Department Manager: Signed Normal [facility] BETA-HYDROXYBUTYRATEon 09-26 BETA-HYDROXYBUTYRATE 0.1 mmol/L Normal 0.0-0.3 [facility] Comment on above: Performed By: #### [id number] #### [facility] [address] [place], [place] [address] Jose Francisco Olmstead M.D. [id number] CBC WITH AUTO DIFFERENTIALon 09-26-2024 AUTO NRBC 0.0 % Normal [facility] Comment on above: Performed By: #### L [id number] #### LAB [address] [place] [address] Jose Francisco Olmstead M.D. [id number] AUTO NRBC ABS COUNT 0.00 K/mcL Normal 0.00-0.00 [facility] Comment on above: Performed By: #### L [id number] #### LAB [address] [place] [address] Jose Francisco Olmstead M.D. [id number] Erythrocyte distribution width (RBC) [Ratio] 13.6 % Normal 11.6-14.8 [facility] Comment on above: Performed By: #### L [id number] #### LAB [address] [place] [address] Jose Francisco Olmtsead M.D. [id number] Hematocrit (Bld) [Volume fraction] 42.2 % Normal 41.0-53.0 [facility] Comment on above: Performed By: #### L [id number] #### LAB [address] [place] [address] Jose Francisco Olmstead M.D. [id number] Hemoglobin (Bld) [Mass/Vol] 14.0 g/dL Normal 13.5-17.5 [facility] Comment on above: Performed By: #### L [id number] #### LAB [address] [place] [address] Jose Francisco Olmstead M.D. [id number] MCH (RBC) [Entitic mass] 33.7 pg Normal 26.0-34.0 [facility] Comment on above: Performed By: #### L [id number] #### [facility] [address] [place] [address] Jose Francisco Olmstead M.D. [id number] MCV (RBC) [Entitic vol] 101.7 fL High 80.0-100.0 [facility] Comment on above: Performed By: #### L [id number] #### [facility] [address] [place] [address] Jose Francisco Olmstead M.D. [id number] MEAN CORPUSCULAR HEMOGLOBIN CONC 33.2 g/dL Normal 31.0-37.0 [facility] Comment on above: Performed By: #### L [id number] #### [facility] [address] [place] [address] Jose Francisco Olmstead M.D. [id number] Platelet mean volume (Bld) [Entitic vol] 11.4 fL Normal 9.4-12.4 [facility] Comment on above: Performed By: #### L [id number] #### [facility] [address] [place] [address] Jose Francisco Olmstead M.D. [id number] Platelets (Bld) [#/Vol] 142 10*3/uL Low 150-400 [facility] Comment on above: Performed By: #### L [id number] #### [facility] [address] [place] [address] Jose Francisco Olmstead M.D. [id number] RBC (Bld) [#/Vol] 4.15 10*6/uL Low 4.50-5.90 [facility] Comment on above: Performed By: #### L [id number] #### [facility] [address] [place] [address] Jose Francisco Olmstead M.D. [id number] WBC (Bld) [#/Vol] 7.87 10*3/uL Normal 4.50-11.00 [facility] Comment on above: Performed By: #### L [id number] #### [facility] [address] [place] [address] Jose Francisco Olmstead M.D. [id number] COMPREHENSIVE METABOLIC PANE [facility] 09-26-2024 Albumin [Mass/Vol] 4.4 g/dL Normal 3.2-5.2 [facility] Comment on above: Order Comment: [facility] has implemented the eGFR calculation approach that does not have a coefficient for race that conforms to the NKF-ASN Task Force Recommendations. Performed By: #### [id number] #### [facility] [address] [place] [address] Jose Francisco Olmstead M.D. [id number] ALP [Catalytic activity/Vol] 64 U/L Normal 40-150 [facility] Comment on above: Order Comment: [facility] has implemented the eGFR calculation approach that does not have a coefficient for race that conforms to the NKF-ASN Task Force Recommendations. Performed By: #### 4 [id number] #### LAB [address] [place] [address] Jose Francisco Olmstead M.D. [id number] ALT [Catalytic activity/Vol] 42 U/L Normal 0-50 U/L [facility] Comment on above: Order Comment: [facility] has implemented the eGFR calculation approach that does not have a coefficient for race that conforms to the NKF-ASN Task Force Recommendations. Performed By: #### 4 [id number] #### LAB [address] [place] [address] Jose Francisco Olmstead M.D. [id number] Anion gap [Moles/Vol] 19 mmol/L Normal 10-20 [facility] Comment on above: Order Comment: [facility] has implemented the eGFR calculation approach that does not have a coefficient for race that conforms to the NKF-ASN Task Force Recommendations. Performed By: #### 4 [id number] #### LAB [address] [place] [address] Jose Francisco Olmstead M.D. [id number] AST [Catalytic activity/Vol] 21 U/L Normal 0-50 U/L [facility] Comment on above: Order Comment: [facility] has implemented the eGFR calculation approach that does not have a coefficient for race that conforms to the NKF-ASN Task Force Recommendations. Performed By: #### 4 [id number] #### LAB [address] [place] [address] Jose Francisco Olmstead M.D. [id number] Bilirubin [Mass/Vol] 0.8 mg/dL Normal 0.0-1.3 [facility] Comment on above: Order Comment: [facility] has implemented the eGFR calculation approach that does not have a coefficient for race that conforms to the NKF-ASN Task Force Recommendations. Performed By: #### 4 [id number] #### [facility] [address] [place], [place] [address] Jose Francisco Olmstead M.D. [id number] Calcium [Mass/Vol] 9.3 mg/dL Normal 8.4-10.2 [facility] Comment on above: Order Comment: [facility] has implemented the eGFR calculation approach that does not have a coefficient for race that conforms to the NKF-ASN Task Force Recommendations. Performed By: #### 4 [id number] #### LAB [address] [place] [address] Jose Francisco Olmstead M.D. [id number] Chloride [Moles/Vol] 100 mmol/L Normal 98-108 [facility] Comment on above: Order Comment: [facility] has implemented the eGFR calculation approach that does not have a coefficient for race that conforms to the NKF-ASN Task Force Recommendations. Performed By: #### 4 [id number] #### LAB [address] [place] [address] Jose Francisco Olmstead M.D. [id number] Creatinine [Mass/Vol] 1.24 mg/dL Normal 0.80-1.30 [facility] Comment on above: Order Comment: [facility] has implemented the eGFR calculation approach that does not have a coefficient for race that conforms to the NKF-ASN Task Force Recommendations. Performed By: #### 4 [id number] #### LAB [address] [place] [address] Jose Francisco Olmstead M.D. [id number] EGFR 58 mL/min/1.73 m2 Low >=60 [facility] Comment on above: Order Comment: [facility] has implemented the eGFR calculation approach that does not have a coefficient for race that conforms to the NKF-ASN Task Force Recommendations. Result Comment: Lisa mated GFR was calculated using the 2020 CKD-EPI creatinine equation. Performed By: #### 4 [id number] #### LAB [address] [place] [address] Jose Francisco Olmstead M.D. [id number] Glucose [Mass/Vol] 365 mg/dL High 65-99 [facility] Comment on above: Order Comment: [facility] has implemented the eGFR calculation approach that does not have a coefficient for race that conforms to the NKF-ASN Task Force Recommendations. Performed By: #### 4 [id number] #### LAB [address] [place] [address] Jose Francisco Olmstead M.D. [id number] HCO3 (Bld) [Moles/Vol] 24 mmol/L Normal 21-32 [facility] Comment on above: Order Comment: [facility] has implemented the eGFR calculation approach that does not have a coefficient for race that conforms to the NKF-ASN Task Force Recommendations. Performed By: #### 4 [id number] #### LAB [address] [place] [address] Jose Francisco Olmstead M.D. [id number] Potassium [Moles/Vol] 4.5 mmol/L Normal 3.5-5.1 [facility] Comment on above: Order Comment: [facility] has implemented the eGFR calculation approach that does not have a coefficient for race that conforms to the NKF-ASN Task Force Recommendations. Performed By: #### 4 [id number] #### LAB [address] [place] [address] Jose Francisco Olmstead M.D. [id number] Protein [Mass/Vol] 6.5 g/dL Normal 6.0-8.0 [facility] Comment on above: Order Comment: [facility] has implemented the eGFR calculation approach that does not have a coefficient for race that conforms to the NKF-ASN Task Force Recommendations. Performed By: #### 4 [id number] #### [facility] [address] [place] [address] Jose Francisco Olmstead M.D. [id number] Sodium [Moles/Vol] 138 mmol/L Normal 135-145 [facility] Comment on above: Order Comment: [facility] has implemented the eGFR calculation approach that does not have a coefficient for race that conforms to the NKF-ASN Task Force Recommendations. Performed By: #### 4 [id number] #### LAB [address] [place] [address] Jose Francisco Olmstead M.D. [id number] Urea nitrogen [Mass/Vol] 22 mg/dL Normal 8-25 [facility] Comment on above: Order Comment: [facility] has implemented the eGFR calculation approach that does not have a coefficient for race that conforms to the NKF-ASN Task Force Recommendations. Performed By: #### 4 [id number] #### LAB [address] [place], [place] [address] Jose Francisco Olmstead M.D. [id number] Urea nitrogen/Creatinine [Mass ratio] 17.7 mg/mg Normal 10.0-20.0 [facility] Comment on above: Order Comment: [facility] has implemented the eGFR calculation approach that does not have a coefficient for race that conforms to the NKF-ASN Task Force Recommendations. Performed By: #### 4 [id number] #### LAB [address] [place], [place] [address] Jose Francisco Olmstead M.D. [id number] ED Prov Noteon 09-26-2024 ED Prov Note ED PROVIDER NOTE [facility] EMERGENCY DEPARTMENT NAME: Anjum Serrano AGE: 79 y.o. : 1945 VISIT DATE: 09/26/2024 CSN: [id number] PCP: Reema Myers MD Chief Complaint Patient presents with Hyperglycemia Patient was referred [facility] this ED [facility]. Reports blood sugar at that office was 419. Patient has no history of diabetes. He denies any complaints at this time. He does report that he recently had a cough and just finished several days of prednisone therapy yesterday. Past Medical History: Diagnosis Date Atrial fibrillation (HCC) No past surgical history on file. History reviewed. No pertinent family history. Social History [1] No current outpatient medications on file prior to encounter. Allergies[2] Review of Systems Constitutional: Negative. HENT: Negative. Respiratory: Negative. Cardiovascular: Negative. Gastrointestinal: Negative. Endocrine: Negative. Genitourinary: Negative. Musculoskeletal: Negative. Skin: Negative. Neurological: Negative. Psychiatric/Behavioral: Negative. Patient Vitals for the past 24 hrs: BP Temp Temp src Pulse Resp SpO2 Height Weight 09/26/24 1900 (!) 152/98 -- -- 70 16 -- -- -- 09/26/24 1751 (!) 145/74 -- -- 77 17 97 % -- -- 09/26/24 1436 (!) 143/85 97.5 degrees F (36.4 degrees C) Oral 84 18 95 % -- -- 09/26/24 1428 -- -- -- -- -- -- 6' 1 106.1 kg (234 lb) Physical Exam Constitutional: Appearance: Normal appearance. HENT: Head: Normocephalic. Nose: Nose normal. Mouth/Throat: Mouth: Mucous membranes are moist. Pharynx: Oropharynx is clear. Eyes: Conjunctiva/sclera: Conjunctivae normal. Pupils: Pupils are equal, round, and reactive to light. Cardiovascular: Rate and Rhythm: Normal rate and regular rhythm. Pulses: Normal pulses. Heart sounds: Normal heart sounds. Musculoskeletal: General: Normal range of motion. Cervical back: Normal range of motion and neck supple. Pulmonary: Effort: Pulmonary effort is normal. Breath sounds: Normal breath sounds. Abdominal: General: Bowel sounds are normal. Palpations: Abdomen is soft. Tenderness: There is no abdominal tenderness. Skin: General: Skin is warm and dry. Capillary Refill: Capillary refill takes less than 2 seconds. Neurological: General: No focal deficit present. Mental Status: He is alert and oriented to person, place, and time. Laboratory & Radiographic Imaging (if done): Results for orders placed or performed during the hospital encounter of 09/26/24 Comprehensive Metabolic Panel Result Value Ref Range Sodium 138 135 - 145 mmol/L Potassium 4.5 3.5 - 5.1 mmol/L Chloride 100 98 - 108 mmol/L Bicarbonate 24 21 - 32 mmol/L Anion Gap 19 10 - 20 mmol/L Glucose 365 (H) 65 - 99 mg/dL BUN 22 8 - 25 mg/dL Creatinine 1.24 0.80 - 1.30 mg/dL eGFR 58 (L) >=60 mL/min/1.73 m2 BUN/Creatinine Ratio 17.7 10.0 - 20.0 Total Protein 6.5 6.0 - 8.0 g/dL Albumin 4.4 3.2 - 5.2 g/dL Calcium 9.3 8.4 - 10.2 mg/dL Alkaline Phosphatase 64 40 - 150 U/L AST 21 0-50 U/L U/L ALT 42 0-50 U/L U/L Total Bilirubin 0.8 0.0 - 1.3 mg/dL Beta-Hydroxybutyrate Result Value Ref Range Beta-Hydroxybutyrate 0.1 0.0 - 0.3 mmol/L POC Glucose Result Value Ref Range Glucose 331 (A) 65 - 99 mg/dL POC Glucose Result Value Ref Range Glucose 331 (H) 65 - 99 mg/dL POC Glucose Result Value Ref Range Glucose 187 (H) 65 - 99 mg/dL CBC Auto Differential Result Value Ref Range WBC 7.87 4.50 - 11.00 K/mcL RBC 4.15 (L) 4.50 - 5.90 M/mcL Hemoglobin 14.0 13.5 - 17.5 g/dL Hematocrit 42.2 41.0 - 53.0 % MCV 101.7 (H) 80.0 - 100.0 fL MCH 33.7 26.0 - 34.0 pg MCHC 33.2 31.0 - 37.0 g/dL Platelets 142 (L) 150 - 400 K/mcL RDW - CV 13.6 11.6 - 14.8 % MPV 11.4 9.4 - 12.4 fL Nucleated RBC 0.0 % Nucleated RBC Abs 0.00 0.00 - 0.00 K/mcL CBC and Diff Morphology Result Value Ref Range Platelet Estimate Decreased (A) Normal Polychromia Few Ovalocytes Few RBC Morphology See Comment Manual Differential Result Value Ref Range Neutrophils 70.0 % Lymphocytes 17.0 % Monocytes 7.0 % Eosinophils 0.0 % Basophils 0.0 % Metamyelocytes 1.0 % Myelocyte 5.0 % Neutrophils Abs 5.98 1.70 - 7.00 K/mcL Lymphocytes Abs 1.34 0.90 - 4.00 K/mcL Monocytes Abs 0.55 0.30 - 0.90 K/mcL Eosinophils Abs 0.00 0.00 - 0.50 K/mcL Basophils Abs 0.00 0.00 - 0.30 K/mcL No orders to display Procedures Medical Decision Making Upon examination, patient sitting up in bed, no distress noted. Alert and oriented answer questions appropriate. Vital signs are stable. Patient was referred to this ED by his [place] provider of record for hyperglycemia. Reports blood sugar at that office was 419. Patient has no history of diabetes. He denies any complaints at this time. He does report that he recently had a cough and just finished several days of prednisone therapy yesterday. Differential diagnosis include (more content not included)... Normal [facility] MANUAL DIFFERENTIALon 2024 BASOPHILS - ABS (DIFF) 0.00 K/mcL Normal 0.00-0.30 [facility] Comment on above: Performed By: #### 4 8327 #### LAB [address] [address] Jose Francisco Olmstead M.D. [id number] BASOPHILS - REL (DIFF) 0.0 % Normal [facility] Comment on above: Performed By: #### 4 2089 #### LAB [address] [address] Jose Francisco Olmstead M.D. [id number] EOSINOPHILS - ABS (DIFF) 0.00 K/mcL Normal 0.00-0.50 [facility] Comment on above: Performed By: #### 4 1399 #### LAB [address] [address] Jose Francisco Olmstead M.D. [id number] EOSINOPHILS - REL (DIFF) 0.0 % [facility] Comment on above: Performed By: #### 4 8329 #### LAB [address] [address] Jose Francisco Olmstead M.D. [id number] LYMPHOCYTES - ABS (DIFF) 1.34 K/mcL Normal 0.90-4.00 [facility] Comment on above: Performed By: #### 4 5207 #### LAB [address] [address] Jose Francisco Olmstead M.D. [id number] LYMPHOCYTES - REL (DIFF) 17.0 % [facility] Comment on above: Performed By: #### 4 5246 #### LAB [address] [place] [address] Jose Francisco Olmstead M.D. [id number] METAMYELOCYTES-REL (DIFF) 1.0 % [facility] Comment on above: Performed By: #### 4 3556 #### LAB [address] [address] Jose Francisco Olmstead M.D. [id number] MONOCYTES - ABS (DIFF) 0.55 K/mcL Normal 0.30-0.90 [facility] Comment on above: Performed By: #### 4 5456 #### LAB [address] [address] Jose Francisco Olmstead M.D. [id number] MONOCYTES - REL (DIFF) 7.0 % Normal [facility] Comment on above: Performed By: #### 4 5456 #### LAB [address] [address] Jose Francisco Olmstead M.D. [id number] MYELOCYTES RELATIVE PERCENT 5.0 % [facility] Comment on above: Performed By: #### 4 5456 #### LAB [address] [address] Jose Francisco Olmstead M.D. [id number] NEUTROPHILS - ABS (DIFF) 5.98 K/mcL Normal 1.70-7.00 [facility] Comment on above: Performed By: #### 4 5456 #### LAB [address] [address] Jose Francisco Olmstead M.D. [id number] NEUTROPHILS - REL (DIFF) 70.0 % [facility] Comment on above: Performed By: #### 4 5456 #### LAB [address] [address] Jose Francisco Olmstead M.D. [id number] MORPHOLOGYon 09-26-2024 OVAL SCAN [facility] Comment on above: Performed By: #### L AB295 #### MH LAB [address] [address] Jose Francisco Olmstead M.D. [id number] PLATELET ESTIMATE Decreased Abnormal Normal [facility] Comment on above: Performed By: #### L AB295 #### MH LAB [address] [address] Jose Francisco Olmstead M.D. [id number] POLY SCAN Few [facility] Comment on above: Performed By: #### L AB295 #### MH LAB [address] [place], [place] [address] Jose Francisco Olmstead M.D. [id number] RBC MORPH SCAN See Comment Normal [facility] Comment on above: Result Comment: RBC Indices confirmed with manual peripheral smear review. Performed By: #### L AB295 #### MH LAB [address] [place], [place] [address] Jose Francisco Olmstead M.D. [id number] POC GLUCOSE - [facility] 025 Glucose [Mass/Vol] 187 mg/dL High [address] [place] [address] Comment on above: Performed By: #### 4 6932 #### MH LAB [address] [id number] Jose Francisco Olmstead M.D. [id number] Glucose [Mass/Vol] 331 mg/dL High [address] [place] [address] Comment on above: Performed By: #### 4 6932 #### LAB [address] [address] Jose Francisco Olmstead M.D. [id number] Absolute lymphocyte countOrd ered By: Tamie Coleman on 08-30-2024 Lymphocytes Auto (Unsp spec) [#/Vol] 1.01 10*3/uL 0.83-4.[address] [facility] Absolute neutrophil countOrd ered By: Tamie Coleman on 08-30-2024 Neutrophils (Bld) [#/Vol] 3.4 10*3/uL 2.0-7.[address] [facility] Automated lymphocyte count a s percentage of total leukocytesOrdered By: Tamie Coleman on 08-30-2024 Lymphocytes/100 WBC Auto (Unsp spec) 17.3 % Low 19-[address] [facility] Basophil percentageOrdered B y: Tamie Coleman on 08-30-2024 Basophils/100 WBC (Bld) 0.5 % 0-[address] [facility] CBC W/Diff, Automatedon Absolute Lymph 1.01 X10 3/uL Normal 0.83-4.[address] [facility] Comment on above: Order Comment: DR Jericho ROSENBERG ORDERED TSH, FT4ALL OTHER LABS ARE FOR DR COLEMAN Performed By: #### L 506.0400, L100.0100, L501.9520, L503.6550, L503.6030, L100.9950 ####[facility] [address] [place], [address] Absolute Neut 3.4 X10 3/uL Normal 2.0-7.[address] [facility] Comment on above: Order Comment: DR Jericho ROSENBERG ORDERED TSH, FT4ALL OTHER LABS ARE FOR DR COLEMAN Performed By: #### L 506.0400, L100.0100, L501.9520, L503.6550, L503.6030, L100.9950 ####[facility] [address] [place], [address] Basophils/100 WBC (Bld) 0.5 % Normal 0-[address] [facility] Comment on above: Order Comment: DR Jericho ROSENBERG ORDERED TSH, FT4ALL OTHER LABS ARE FOR DR COLEMAN Performed By: #### L 506.0400, L100.0100, L501.9520, L503.6550, L503.6030, L100.9950 ####[facility] [address] [place], [address] Eosinophils/100 WBC (Bld) 9.4 % High 0-[address] [facility] Comment on above: Order Comment: DR Jericho ROSENBERG ORDERED TSH, FT4ALL OTHER LABS ARE FOR DR COLEMAN Performed By: #### L 506.0400, L100.0100, L501.9520, L503.6550, L503.6030, L100.9950 ####[facility] [address] [place], [address] Erythrocyte distribution width (RBC) [Ratio] 13.1 % Normal 11.6-14.[address] [facility] Comment on above: Order Comment: DR Jericho ROSENBERG ORDERED TSH, FT4ALL OTHER LABS ARE FOR DR COLEMAN Performed By: #### L 506.0400, L100.0100, L501.9520, L503.6550, L503.6030, L100.9950 ####[facility] [address] [place], [address] Hematocrit (Bld) [Volume fraction] 40.9 % Normal 40-[address] [facility] Comment on above: Order Comment: DR Jericho ROSENBERG ORDERED TSH, FT4ALL OTHER LABS ARE FOR DR COLEMAN Performed By: #### L 506.0400, L100.0100, L501.9520, L503.6550, L503.6030, L100.9950 ####[facility] [address] [place], [address] Hemoglobin (Bld) [Mass/Vol] 13.7 g/dL Normal 13.0-16.[address] [facility] Comment on above: Order Comment: DR Jericho ROSENBERG ORDERED TSH, FT4ALL OTHER LABS ARE FOR DR COLEMAN Performed By: #### L 506.0400, L100.0100, L501.9520, L503.6550, L503.6030, L100.9950 ####[facility] [address] [place], [address] IG% 4.300 High 0.0-0.[address] [facility] Comment on above: Order Comment: DR Jericho ROSENBERG ORDERED TSH, FT4ALL OTHER LABS ARE FOR DR COLEMAN Result Comment: IG% - Immature Granulocytes (promyelocytes, myelocytes and metamyelocytes) > 1% indicates that a LEFT SHIFT is Present. Performed By: #### L 506.0400, L100.0100, L501.9520, L503.6550, L503.6030, L100.9950 ####[facility] [address] [place], [address] Lymphocytes/100 WBC (Bld) 17.3 % Low 19-[address] [facility] Comment on above: Order Comment: DR Jericho ROSENBERG ORDERED TSH, FT4ALL OTHER LABS ARE FOR DR COLEMAN Performed By: #### L 506.0400, L100.0100, L501.9520, L503.6550, L503.6030, L100.9950 ####[facility] [address] [place], [address] MCH (RBC) [Entitic mass] 34.0 pg High 27.0-32.[address] [facility] Comment on above: Order Comment: DR Jericho ROSENBERG ORDERED TSH, FT4ALL OTHER LABS ARE FOR DR COLEMAN Performed By: #### L 506.0400, L100.0100, L501.9520, L503.6550, L503.6030, L100.9950 ####[facility] [address] [place], [address] MCHC (RBC) [Mass/Vol] 33.5 g/dL Normal 32-36 [facility] Comment on above: Order Comment: DR Jericho ROSENBERG ORDERED TSH, FT4ALL OTHER LABS ARE FOR DR COLEMAN Performed By: #### L 506.0400, L100.0100, L501.9520, L503.6550, L503.6030, L100.9950 ####[facility] [address] [place], [address] MCV (RBC) [Entitic vol] 101.5 fL High 80-[address] [facility] Comment on above: Order Comment: DR Jericho ROSENBERG ORDERED TSH, FT4ALL OTHER LABS ARE FOR DR COLEMAN Performed By: #### L 506.0400, L100.0100, L501.9520, L503.6550, L503.6030, L100.9950 ####[facility] [address] [place], [address] Monocytes/100 WBC (Bld) 9.4 % Normal 0-[address] [facility] Comment on above: Order Comment: DR Jericho ROSENBERG ORDERED TSH, FT4ALL OTHER LABS ARE FOR DR COLEMAN Performed By: #### L 506.0400, L100.0100, L501.9520, L503.6550, L503.6030, L100.9950 ####[facility] [address] [place], [address] Neutrophils/100 WBC (Bld) 59.1 % Normal 47-[address] [facility] Comment on above: Order Comment: DR Jericho ROSENBERG ORDERED TSH, FT4ALL OTHER LABS ARE FOR DR COLEMAN Performed By: #### L 506.0400, L100.0100, L501.9520, L503.6550, L503.6030, L100.9950 ####[facility] [address] [place], [address] Nucleated RBC (Bld) [#/Vol] 0.3 10*3/uL Normal 0-[address] [facility] Comment on above: Order Comment: DR Jericho ROSENBERG ORDERED TSH, FT4ALL OTHER LABS ARE FOR DR COLEMAN Performed By: #### L 506.0400, L100.0100, L501.9520, L503.6550, L503.6030, L100.9950 ####[facility] [address] [place], [address] Platelet mean volume (Bld) [Entitic vol] 11.4 fL Normal 6.2-12.[address] [facility] Comment on above: Order Comment: DR Jericho ROSENBREG ORDERED TSH, FT4ALL OTHER LABS ARE FOR DR COLEMAN Performed By: #### L 506.0400, L100.0100, L501.9520, L503.6550, L503.6030, L100.9950 ####[facility] [address] [place], [address] Platelets (Bld) [#/Vol] 114 10*3/uL Low 150-[address] [facility] Comment on above: Order Comment: DR Jericho ROSENBERG ORDERED TSH, FT4ALL OTHER LABS ARE FOR DR COLEMAN Performed By: #### L 506.0400, L100.0100, L501.9520, L503.6550, L503.6030, L100.9950 ####[facility] [address] [place], [address] RBC (Bld) [#/Vol] 4.03 10*6/uL Low 4.6-6.2 [facility] Comment on above: Order Comment: DR Jericho ROSENBERG ORDERED TSH, FT4ALL OTHER LABS ARE FOR DR COLEMAN Performed By: #### L 506.0400, L100.0100, L501.9520, L503.6550, L503.6030, L100.9950 ####[facility] [address] [place], [address] RDW SD 48.6 fl High 35.1-43.[address] [facility] Comment on above: Order Comment: DR Jericho ROSENBERG ORDERED TSH, FT4ALL OTHER LABS ARE FOR DR COLEMAN Performed By: #### L 506.0400, L100.0100, L501.9520, L503.6550, L503.6030, L100.9950 ####[facility] [address] [facility], [address] WBC (Bld) [#/Vol] 5.8 10*3/uL Normal 4.4-11.0 [facility] Comment on above: Order Comment: DR Jericho ROSENBERG ORDERED TSH, FT4ALL OTHER LABS ARE FOR DR COLEMAN Performed By: #### L 506.0400, L100.0100, L501.9520, L503.6550, L503.6030, L100.9950 ####[facility] [address] [place], [address] Eosinophil percentageOrdered By: Tamie Coleman on 08-30-2024 Eosinophils/100 WBC (Bld) 9.4 % High 0-[address] [facility] Erythrocyte distribution wid th ratioOrdered By: Tamie Coleman on 08-30-2024 Erythrocyte distribution width (RBC) [Ratio] 13.1 % 11.6-14.[address] [facility] Erythrocyte distribution wid th standard deviationOrdered By: Tamie Coleman on 08-30-2024 Erythrocyte distribution width (RBC) [Ratio] 48.6 fl High 35.1-43.[address] [facility] Ferritinon 08-30-2024 Ferritin [Mass/Vol] 50 ng/mL Normal 37-417 [facility] Comment on above: Order Comment: DR Jericho ROSENBERG ORDERED TSH, FT4ALL OTHER LABS ARE FOR DR COLEMAN Performed By: #### L 506.0400, L100.0100, L501.9520, L503.6550, L503.6030, L100.9950 ####[facility] [address] [place], [place], [address] Hematocrit Auto (Bld) [Volum e fraction]Ordered By: Tamie Coleman on 08-30-2024 Hematocrit (Bld) [Volume fraction] 40.9 % 40-[address] [facility] Hemoglobin measurementOrdere d By: Tamie Coleman on 08-30-2024 Hemoglobin (Bld) [Mass/Vol] 13.7 g/dL 13.0-16.[address] [facility] Immature granulocytes/100 WB C Auto (Bld)Ordered By: Tamie Coleman on 08-30-2024 Immature granulocytes/100 WBC (Bld) 4.300 % High 0.0-0.[address] [facility] Comment on above: IG% - Immature Granu locytes (promyelocytes, myelocytes and metamyelocytes) > 1% indicates that a LEFT SHIFT is Present. Iron measurement (mass/mass) Ordered By: Tamie Coleman on 08-30-2024 Iron (Unsp spec) [Mass/Mass] 67 ug/dL 65-[address] [facility] Iron+Iron Binding Capacityon 08-30-2024 Iron [Mass/Vol] 67 ug/dL Normal 65-[address] [facility] Comment on above: Order Comment: DR Jericho ROSENBERG ORDERED TSH, FT4 ALL OTHER LABS ARE FOR DR COLEMAN Performed By: #### L 506.0400, L100.0100, L501.9520, L503.6550, L503.6030, L100.9950 #### [facility] [address] [place], [place], [id number] ([phone]) IRON SATURATION 18.0 Normal 15.0-55.[address] [facility] Comment on above: Order Comment: DR Jericho ROSENBERG ORDERED TSH, FT4 ALL OTHER LABS ARE FOR DR COLEMAN Performed By: #### L 506.0400, L100.0100, L501.9520, L503.6550, L503.6030, L100.9950 #### [facility] [address] [place], [address] TIBC 378 ug/dL Normal 250-[address] [facility] Comment on above: Order Comment: DR Jericho ROSENBERG ORDERED TSH, FT4 ALL OTHER LABS ARE FOR DR COLEMAN Performed By: #### L 506.0400, L100.0100, L501.9520, L503.6550, L503.6030, L100.9950 #### [facility] [address] [place], [address] UIBC 311 ug/dL Normal 228-[address] [facility] Comment on above: Order Comment: DR Jericho ROSENBERG ORDERED TSH, FT4 ALL OTHER LABS ARE FOR DR COLEMAN Performed By: #### L 506.0400, L100.0100, L501.9520, L503.6550, L503.6030, L100.9950 #### [facility] [address] [place], [address] MCV (mean corpuscular volume ) determinationOrdered By: Tamie Coleman on 08-30-2024 MCV (RBC) [Entitic vol] 101.5 fL High 80-[address] [facility] Mean corpuscular hemoglobin (MCH) determinationOrdered By: Tamie Coleman on 08-30-2024 MCH (RBC) [Entitic mass] 34.0 pg High 27.0-32.[address] [facility] Mean corpuscular hemoglobin concentration (MCHC) determinationOrdered By: Tamie Coleman on 08-30-2024 MCHC (RBC) [Mass/Vol] 33.5 g/dL 32-36 [facility] Mean platelet volume determi nationOrdered By: Tamie Coleman on 08-30-2024 Platelet mean volume (Bld) [Entitic vol] 11.4 fL 6.2-12.[address] [facility] Monocyte percentageOrdered B y: Tamie Coleman on 08-30-2024 Monocytes/100 WBC (Bld) 9.4 % 0-[address] [facility] Neutrophil percentageOrdered By: Tamie Coleman on 08-30-2024 Neutrophils/100 WBC (Bld) 59.1 % 47-[address] [facility] No Panel InformationOrdered By: Tamie Coleman on 08-30-2024 Unsaturated Iron Binding Capacity 311 ug/dL 228-[address] [facility] Nucleated red blood cell per centageOrdered By: Tamie Coleman on 08-30-2024 Nucleated RBC/100 WBC (Bld) [Ratio] 0.3 % 0-[address] [facility] Oncology Visit Reporton Oncology Visit Report [facility] [address] [place] [address] OFFICE VISIT Date of Service: 08/30/24 1402 MR#: [id number] Acct: [id number] Name: ANJUM SERRANO Rep #: [id number] : 1945 From: Tamie Coleman MD Age/Sex: 79/M [place] [facility] [place] HPI Subjective Chief Complaint thyrotoxicosis PFSH Medical History Thyrotoxicosis Iron deficiency anemia due to chronic blood loss Wears hearing aid Wears glasses Alcohol use Burning pain Arthritis Self-catheterizes urinary bladder Prostate disease Anemia High cholesterol Restless legs Back pain Syncope Difficulty swallowing COPD (chronic obstructive pulmonary disease) Shortness of breath on exertion History of pain when walking History of edema History of echocardiogram History of stress test Cardiology follow-up encounter History of cardioversion Obesity New onset atrial fibrillation (03/14/21) BPH (benign prostatic hyperplasia) Tobacco dependence Essential hypertension Hyperlipidemia Surgical History Hx of right cataract extraction Hx of left cataract extraction History of transurethral resection of prostate History of appendectomy Family History Mother Heart disease Hypertension Thyroid disorder Father Heart disease Brother Hypertension Social History household members: spouse housing: house Smoking Status: Former smoker quit date: 02/26/21 alcohol intake: current alcohol intake frequency: a few times a month PILAR Patiño Feels well, unaware of any external bleeding Intake Vital Signs 03/02/24 14:27 08/30/24 14:03 08/30/24 14:04 Height 6 ft 1 in 6 ft 1 in 6 ft 1 in Weight: 107.955 kg BMI 31.4 BP 110/72 Blood Pressure Location Lt brachial Position Sitting Respiration 16 Pulse 99 Pulse Source Monitor Temp 97.8 F Temperature Source Temporal Artery Pulse Oximetry (%) 93 Oxygen Delivery Method room air Intake Is patient in pain?: No Allergies No Known Allergies Allergy (Verified 08/30/24 14:02) Medications ???Medication ???Instructions ???Recorded ???Confirmed ???Type atorvastatin 40 mg tablet 40 mg PO QHS 03/18/21 08/30/24 His tory docusate sodium 100 mg capsule 100 mg PO BID 07/01/23 08/30/24 Hi story ferrous sulfate 325 mg (65 mg 650 mg PO DAILY 12/13/23 08/30/24 History iron) tablet (Feosol) metoprolol tartrate 25 mg tablet 25 mg PO BID 01/11/24 08/30/24 His tory apixaban 2.5 mg tablet (Eliquis) 2.5 mg PO BID 03/06/24 08/30/24 Hi story Have you fallen in the past year?: No Central Venous Access Central Venous Access: No Laboratory Tests 02/02/23 09/09/23 11/04/23 13:04 12:49 13:45 Hgb 14.7 9.8 L 5.5 L* Retic Count TIBC Iron Saturation Ferritin Vitamin B12 11/05/23 11/05/23 11/06/23 00:15 07:20 06:11 Hgb 8.4 L 7.6 L 7.0 L Retic Count TIBC Iron Saturation Ferritin Vitamin B12 11/06/23 11/08/23 11/09/23 12:57 10:38 09:29 Hgb 7.4 L 8.0 L Retic Count 3.77 H TIBC 550 H Iron Saturation Ferritin 11 L Vitamin B12 12/08/23 12/23/23 01/24/24 16:10 15:19 14:53 Hgb 7.7 L 11.0 L 11.3 L Retic Count TIBC Iron Saturation 7.2 L 34.3 15.6 Ferritin 18 L 40 36 Vitamin B12 03/02/24 08/30/24 13:15 13:04 Hgb 11.0 L 13.7 Retic Count TIBC Iron Saturation 24.2 18.0 Ferritin 28 50 Vitamin B12 1092 H Exam Physical Exam Narrative ECOG 1 Const alert, oriented x3 and no apparent distress Nutritional Appearance: obese Coding Level of Care Code Off vis,est,level 3 Exam Problem Focused Diagnoses Iron deficiency anemia due to chronic blood loss D50.0 Assessment and Plan Assessment and Plan (1) Iron deficiency anemia due to chronic blood loss: Status: Chronic Plan 79-year-old gentleman with iron deficiency anemia secondary to chronic GI blood loss with episodic acute bleed (October 2023). Despite extensive GI workup including upper and lower GI endoscopies twice and a capsule study in October 2023 the source of bleeding has not been identified. The patient had been on systemic anticoagulation with Eliquis due to atrial fibrillation. Anticoagulation was temporarily October 2023 because of the bleeding then resume. He has started on oral iron supplement, turned his stools black and caused him some constipation but is managing with a laxative. Anemia has significantly improved Chronic comorbid conditions: Chronic atrial fibrillation, obesity, sleep apnea, COPD secondary to previous smo (more content not included)... Normal [facility] Platelet countOrdered By: Carla Coleman on 08-30-2024 Platelets (Bld) [#/Vol] 114 10*3/uL Low 150-[address] [facility] RBC Auto (Bld) [#/Vol]Ordere d By: Tamie Coleman on 08-30-2024 RBC (Bld) [#/Vol] 4.03 10*6/uL Low 4.6-6.2 [facility] Retic Panelon 08-30-2024 IM RET FRACTION 21.90 High 3.00-15.[address] [facility] Comment on above: Order Comment: DR Jericho ROSENBERG ORDERED TSH, FT4ALL OTHER LABS ARE FOR DR COLEMAN Performed By: #### L 506.0400, L100.0100, L501.9520, L503.6550, L503.6030, L100.9950 ####[facility] [address] [place], [place], [id number] RET-HE 38.0 pg High 30-[address] [facility] Comment on above: Order Comment: DR Jericho ROSENBERG ORDERED TSH, FT4ALL OTHER LABS ARE FOR DR COLEMAN Performed By: #### L 506.0400, L100.0100, L501.9520, L503.6550, L503.6030, L100.9950 ####[facility] [address] [place], [address] Retic Count 2.79 High 0.5-1.[address] [facility] Comment on above: Order Comment: DR Jericho ROSENBERG ORDERED TSH, FT4ALL OTHER LABS ARE FOR DR COLEMAN Performed By: #### L 506.0400, L100.0100, L501.9520, L503.6550, L503.6030, L100.9950 ####[facility] [address] [place], [place], [id number] Reticulocyte hemoglobin equi valent (RET-He) measurementOrdered By: Tamie Coleman on 08-30-2024 Hemoglobin (Reticulocytes) [Entitic mass] 38.0 pg High 30-[address] [facility] Reticulocytes Auto (Bld) [#/ Vol]Ordered By: Tamie Coleman on 08-30-2024 Reticulocytes/100 RBC (Bld) 2.79 % High 0.5-1.[address] [facility] Serum or plasma ferritin sandra surement (mass/volume)Ordered By: Tamie Coleman on 08-30-2024 Ferritin [Mass/Vol] 50 ng/mL 37-417 [facility] Serum or plasma iron saturat ion measurement (mass fraction)Ordered By: Tamie Coleman on 08-30-2024 Iron saturation [Mass fraction] 18.0 % 15.0-55.[address] [facility] T4 Free Directon 08-30-2024 T4 FREE DIRECT 1.10 ng/dL Normal 0.76-1.[address] [facility] Comment on above: Order Comment: DR Jericho ROSENBERG ORDERED TSH, FT4ALL OTHER LABS ARE FOR DR COLEMAN Performed By: #### L 506.0400, L100.0100, L501.9520, L503.6550, L503.6030, L100.9950 ####[facility] [address] [place], [address] T4 freeOrdered By: Tariq Rosenberg on 08-30-2024 Free T4 [Mass/Vol] 1.10 ng/dL 0.76-1.46 [facility] TSH DL <= 0.005 mIU/L QnOrde red By: Tariq Rosenberg on 08-30-2024 TSH Qn 2.840 uIU/mL 0.300-4.[address] [facility] Thyroid Stim Hormone (TSH)on 08-30-2024 TSH 2.840 uIU/mL Normal 0.300-4.[address] [facility] Comment on above: Order Comment: DR Jericho ROSENBERG ORDERED TSH, FT4 ALL OTHER LABS ARE FOR DR COLEMAN Performed By: #### L 506.0400, L100.0100, L501.9520, L503.6550, L503.6030, L100.9950 #### [facility] [address] [place], [place], [id number] White blood cell (WBC) count Ordered By: Tamie Coleman on 08-30-2024 WBC (Bld) [#/Vol] 5.8 10*3/uL 4.4-11.0 [facility] High density lipoprotein (HD L) measurementOrdered By: Buck Larsen on 08-16-2024 Cholesterol in HDL [Mass/Vol] 55 mg/dL >[address] [facility] Comment on above: The drugs N-Acetylcy steine and Metamizole may falsely depress this assay. Reference Range HDL <40 mg/dL Low HDL Cholesterol HDL >or= 60 mg/dL High HDL Cholesterol Lipid Profileon 08-16-2024 Cholesterol [Mass/Vol] 149 mg/dL Normal 200 [facility] Comment on above: Result Comment: <200 mg/dL Desirable 200-240 mg/dL Borderline >240 mg/dL High Risk Performed By: #### L 500.4100 #### [facility] [address] [place], [address] Cholesterol in HDL [Mass/Vol] 55 mg/dL Normal [facility] Comment on above: Result Comment: The drugs N-Acetylcysteine and Metamizole may falsely depress this assay. Reference Range HDL <40 mg/dL Low HDL Cholesterol HDL >or= 60 mg/dL High HDL Cholesterol Performed By: #### L 500.4100 #### [facility] [address] [place], [address] Cholesterol in LDL [Mass/Vol] 69 mg/dL Normal 0-[address] [facility] Comment on above: Performed By: #### L 500.4100 #### [facility] [address] [place], [address] Cholesterol in VLDL [Mass/Vol] 25 mg/dL Normal 5-[address] [facility] Comment on above: Performed By: #### L 500.4100 #### [facility] [address] [place], [address] Triglyceride [Mass/Vol] 123 mg/dL Normal [facility] Comment on above: Result Comment: The drugs N-Acetylcysteine and Metamizole may falsely depress this assay. Serum Triglycerides Reference Interval Normal <150 mg/dL Borderline high 150 - 199 mg/dL High 200 - 499 mg/dL Very High > or = 500 mg/dL Performed By: #### L 500.4100 #### [facility] [address] [place], [address] Low density lipoprotein (LDL ) cholesterol measurementOrdered By: Buck Larsen on 08-16-2024 Cholesterol in LDL [Mass/Vol] 69 mg/dL 0-[address] [facility] Serum or plasma cholesterol measurement (mass/volume)Ordered By: Buck Larsen on 08-16-2024 Cholesterol [Mass/Vol] 149 mg/dL <200 [facility] Comment on above: <200 mg/dL Desirable 200-240 mg/dL Borderline >240 mg/dL High Risk Triglycerides measurementOrd ered By: Buck Larsen on 08-16-2024 Triglyceride [Mass/Vol] 123 mg/dL <[address] [facility] Comment on above: The drugs N-Acetylcy steine and Metamizole may falsely depress this assay.Serum Triglycerides Reference Interval Normal <150 mg/dL Borderline high 150 - 199 mg/dL High 200 - 499 mg/dL Very High > or = 500 mg/dL Very low density lipoprotein (VLDL) cholesterol measurementOrdered By: Buck Larsen on 08-16-2024 Very low density lipoprotein (VLDL) cholesterol measurement 25 mg/dL 5-[address] [facility] Cardiology Visit Reporton Cardiology Visit Report [facility] [address] [place] [address] OFFICE VISIT Date of Service: 08/09/24 MR#: [id number] Acct: [id number] Name: ANJUM SERRANO Rep #: [id number] : 1945 Provider: KRISTIAN Weinstein Age/Sex: 79/M Location: [facility] Status: Signed HPI HPI History of Present Illness Details: Anjum Serrano is a 79-year-old male who presents to the office today for a cardiovascular follow up visit. He has a history of hypertension and hyperlipidemia and atrial fibrillation. He was noted to have a stress test and an echocardiogram both of which were normal attempt at DC cardioversion was performed twice which was unsuccessful. Patient mentioned previously discussing an ablation and is interested in further discussing with Dr Dodd at next visit. Per physical exam, patient remains in irregular rhythm. Patient is asymptomatic. From a cardiac standpoint, the patient is doing well. Patient reports several other comorbidities/medical conditions that he has been following with other doctors with over the last 1 year; however, reports today that this is the best he has felt in a while. See further ROS below. 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: No Is patient in pain?: No Allergies No Known Allergies Allergy (Verified 08/09/24 15:22) Medications ???Medication ???Instructions ???Recorded ???Confirmed ???Type atorvastatin 40 mg tablet 40 mg PO QHS 03/18/21 08/09/24 His tory docusate sodium 100 mg capsule 100 mg PO BID 07/01/23 08/09/24 Hi story ferrous sulfate 325 mg (65 mg 650 mg PO DAILY 12/13/23 08/09/24 History iron) tablet (Feosol) metoprolol tartrate 25 mg tablet 25 mg PO BID 01/11/24 08/09/24 His tory apixaban 2.5 mg tablet (Eliquis) 2.5 mg PO BID 03/06/24 08/09/24 Hi story Ejection fraction %: 55 Have you fallen in the past year?: Yes PFSH Medical History Thyrotoxicosis Iron deficiency anemia due to chronic blood loss Wears hearing aid Wears glasses Alcohol use Burning pain Arthritis Self-catheterizes urinary bladder Prostate disease Anemia High cholesterol Restless legs Back pain Syncope Difficulty swallowing COPD (chronic obstructive pulmonary disease) Shortness of breath on exertion History of pain when walking History of edema History of echocardiogram History of stress test Cardiology follow-up encounter History of cardioversion Obesity New onset atrial fibrillation (03/14/21) BPH (benign prostatic hyperplasia) Tobacco dependence Essential hypertension Hyperlipidemia Surgical History Hx of right cataract extraction Hx of left cataract extraction History of transurethral resection of prostate History of appendectomy Family History Mother Heart disease Hypertension Thyroid disorder Father Heart disease Brother Hypertension Social History household members: spouse housing: house Smoking Status: Former smoker quit date: 02/26/21 alcohol intake: current alcohol intake frequency: a few times a month ROS Const Const: Positive for other (+ occasional lightheadedness when standing too fast); Negative for fatigue, weakness, headache(s) or frequent falls Eyes Eyes: Negative for blurry vision or change in vision ENT ENT: Negative for headache(s), dizziness or Nosebleed/epistaxis Cardio Chest Pain: No Palpitations: No Edema: None Muscle aches with walking: None Resp Respiratory: Negative for SOB with activity, SOB at rest or SOB orthopnea SOB lying down GI GI: Negative nausea, vomiting or bright, red blood in stools : Negative for hematuria Musc Musc: Negative for muscle aches/ myalgia Neuro Neuro: Negative for dizziness, frequent falls, headache(s), weakness or blurry vision Endo Endo: Negative for fatigue Cardiology Exam Const Appearance: no acute distress and well developed; Negative diaphoretic or ill appearing Orientation: alert and oriented x3 Head Head: normocephalic and atraumatic Eyes General: appearance normal, both eyes and all related structures Conjunctivae: Negative scleral icterus EOM: EOM intact bilaterally Neck Carotids: normal carotid upstroke; Negative bruit Chest Chest inspection: normal respiratory effort; Negative respiratory distress, audible wheeze (more content not included)... Normal [facility] Endocrinology Visit Reporton 07-10-2024 Endocrinology Visit Report [facility] [address] [place] [address] OFFICE VISIT Date of Service: 07/10/24 MR#: [id number] Acct: [id number] Name: ANJUM SERRANO Rep #: [id number] : 1945 Provider: Kristen Oleary Age/Sex: 78/M Location: [facility] Status: Signed Intake Vital Signs 04/10/24 11:05 06/06/24 08:23 07/10/24 14:53 Height 6 ft 1 in 6 ft 1 in 6 ft 1 in Weight: 235 lb 240 lb BMI 30.9 31.6 BP 112/76 115/77 Blood Pressure Location Lt brachial Lt brachial Position Sitting Sitting Respiration 20 H Pulse 85 64 Pulse Source Monitor Monitor Temp 96.6 F L Pulse Oximetry (%) 96 95 Oxygen Delivery Method room air room air Intake Visit Reasons: 3 M FU Chief Complaint: thyrotoxicosis Is patient in pain?: No Allergies No Known Allergies Allergy (Verified 07/10/24 14:55) Medications ???Medication ???Instructions ???Recorded ???Confirmed ???Type atorvastatin 40 mg tablet 40 mg PO QHS 03/18/21 07/10/24 History docusate sodium 100 mg capsule 100 mg PO BID 07/01/23 07/10/24 History ferrous sulfate 325 mg (65 mg 650 mg PO DAILY 12/13/23 07/10/24 History iron) tablet (Feosol) metoprolol tartrate 25 mg tablet 25 mg PO BID 01/11/24 07/10/24 History apixaban 2.5 mg tablet (Eliquis) 2.5 mg PO BID 03/06/24 07/10/24 History Have you fallen in the past year?: No PFSH Medical History Thyrotoxicosis Iron deficiency anemia due to chronic blood loss Wears hearing aid Wears glasses Alcohol use Burning pain Arthritis Self-catheterizes urinary bladder Prostate disease Anemia High cholesterol Restless legs Back pain Syncope Difficulty swallowing COPD (chronic obstructive pulmonary disease) Shortness of breath on exertion History of pain when walking History of edema History of echocardiogram History of stress test Cardiology follow-up encounter History of cardioversion Obesity New onset atrial fibrillation (03/14/21) BPH (benign prostatic hyperplasia) Tobacco dependence Essential hypertension Hyperlipidemia Surgical History Hx of right cataract extraction Hx of left cataract extraction History of transurethral resection of prostate History of appendectomy Family History Mother Heart disease Hypertension Thyroid disorder Father Heart disease Brother Hypertension Social History household members: spouse housing: house Smoking Status: Former smoker quit date: 02/26/21 alcohol intake: current alcohol intake frequency: a few times a month HPI HPI Chief Complaint: thyrotoxicosis Details: ANJUM SERRANO, is a 78 M who presents to the office today for His thyrotoxicosis has resolved. No need for this appointment ROS Const Constitutional: No fatigue or weight change ENT ENT: No dizziness/vertigo Cardio Cardiology: No chest pain at rest, chest pain with exertion, shortness of breath or palpitations Skin Skin: No wounds Endo Endocrine: No fatigue or weight change Clinical Quality Measures Falls Risk Screening/Assistive Devices Have you fallen in the past year?: No Assessment and Plan Assessment and Plan Orders: Orders T4 Free Direct 07/10/24 E05.90 - Thyrotoxicosis, unspecified without thyrotoxic crisis or storm Thyroid Stim Hormone (TSH) 07/10/24 E05.90 - Thyrotoxicosis, unspecified without thyrotoxic crisis or storm Coding Level of Care Code No Charge 07/14/24 1422 Date Tariq Rosario Signature: Date (if applicable) CC: Normal [facility] Free T3on 06-15-2024 Free T3 [Mass/Vol] 1.8 pg/mL Low 2.18-3.98 [facility] Comment on above: Performed By: #### L 506.0400, L501.69244, L501.9520 ####[facility] [address] [place], [place], [address] T4 Free Directon 06-15-2024 T4 FREE DIRECT 1.03 ng/dL Normal 0.76-1.[address] [facility] Comment on above: Performed By: #### L 506.0400, L501.59666, L501.9520 ####[facility] [address] [place], [address] Thyroid Stim Hormone (TSH)on 06-15-2024 TSH 2.090 uIU/mL Normal 0.358-3.[address] [facility] Comment on above: Performed By: #### L 506.0400, L501.89049, L501.9520 ####[facility] [address] [place], [address] Pulmonary Visit Reporton Pulmonary Visit Report [facility] [address] [place] [address] OFFICE VISIT Date of Service: 06/06/24 MR#: [id number] Acct: [id number] Name: ANJUM SERRANO Rep #: [id number] : 1945 Provider: SHIRA Madrigal Age/Sex: 78/M Location: [facility] Status: Signed Assessment and Plan Assessment and Plan (1) Central sleep apnea: Status: Acute Plan: Stable, the patient is using and benefiting from PAP therapy. Switching DME company so that the patient will get replacement supplies in a timely manner. I believe that the recent leak on his compliance report is related to the fact that his interface is worn out. No indication for titration study at this time. Follow-up in the office in 6 months. He has been encouraged contact the office with any new or worsening symptoms in the meantime. (2) COPD (chronic obstructive pulmonary disease): Status: Chronic Qualifiers: COPD type: emphysema Emphysema type: centrilobular Qualified Code(s): J43.2 - Centrilobular emphysema Plan: Not requiring maintenance medications at this time. No indication for antibiotics or steroids. No additional testing at this time. He has been encouraged contact the office with any acute symptoms. Follow-up in the office in 6 months. Plan Details Follow Up: 6 Months (LMR) HPI 4 M FU Chief Complaint: Dry mouth HPI Comments Details: This patient presents to the office today to discuss test results. He is ambulatory and currently on room air. He has not recently been seen in the ED or urgent care for any respiratory illness. He has not required any antibiotics or prednisone for any breathing problems. He is not currently on any maintenance inhalers. He does have shortness of breath on exertion. He has a cough that is productive of clear-colored sputum. He denies any wheezing, chest tightness, chest pain or palpitations. He denies any fever, chills or body aches. He does have chronic sinus drainage, not problematic. He wakes up feeling rested and refreshed. He has not required naps. He does report some difficulty with mask leaks and dry mouth. Patient is currently using a nasal interface and it sometimes becomes dislodged when sleeping at night. He reports that is difficult to get appropriate supplies from his current DME company. Compliance report for the past 30 days shows 100% compliance with average use of 6 hours and 51 minutes per night. Current setting is ASV EPAP 8, minimum pressure support 6, maximum pressure support 17. Residual AHI of 14.0 events per hour. Leaks do appear to be problematic. 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 Required: No DME Vendor: pap- Accompanied by: Self Is patient in pain?: No Allergies No Known Allergies Allergy (Verified 05/18/24 14:26) Medications ???Medication ???Instructions ???Recorded ???Confirmed ???Type atorvastatin 40 mg tablet 40 mg PO QHS 03/18/21 06/06/24 History docusate sodium 100 mg capsule 100 mg PO BID 07/01/23 06/06/24 History ferrous sulfate 325 mg (65 mg 650 mg PO DAILY 12/13/23 06/06/24 History iron) tablet (Feosol) metoprolol tartrate 25 mg tablet 25 mg PO BID 01/11/24 06/06/24 History apixaban 2.5 mg tablet (Eliquis) 2.5 mg PO BID 03/06/24 06/06/24 History Have you fallen in the past year?: Yes [facility] Medical History Thyrotoxicosis Iron deficiency anemia due to chronic blood loss Wears hearing aid Wears glasses Alcohol use Burning pain Arthritis Self-catheterizes urinary bladder Prostate disease Anemia High cholesterol Restless legs Back pain Syncope Difficulty swallowing COPD (chronic obstructive pulmonary disease) Shortness of breath on exertion History of pain when walking History of edema History of echocardiogram History of stress test Cardiology follow-up encounter History of cardioversion Obesity New onset atrial fibrillation (03/14/21) BPH (benign prostatic hyperplasia) Tobacco dependence Essential hypertension Hyperlipidemia Surgical History Hx of right cataract extraction Hx of left cataract extraction History of transurethral resection of prostate History of appendectomy Family History Mother Heart disease Hyperte (more content not included)... Normal [facility] Endocrinology Visit Reporton 05-18-2024 Endocrinology Visit Report [facility] [address] [place] [address] OFFICE VISIT Date of Service: 05/18/24 MR#: [id number] Acct: [id number] Name: ANJUM SERRANO Rep #: [id number] : 1945 Provider: Kristen Oleary Age/Sex: 78/M Location: [facility] Status: Signed Intake Vital Signs 04/10/24 11:05 05/18/24 14:22 Height 6 ft 1 in 6 ft 1 in Weight: 242 lb 6 oz 235 lb 6 oz BMI 31.9 31.0 BP 112/71 109/74 Blood Pressure Location Rt brachial Rt brachial Position Sitting Sitting Pulse 93 77 Pulse Source Monitor Monitor Pulse Oximetry (%) 92 96 Oxygen Delivery Method room air room air Intake Visit Reasons: Hyperthyroidism Chief Complaint: thyrotoxicosis Allergies No Known Allergies Allergy (Verified 05/18/24 14:26) Medications ???Medication ???Instructions ???Recorded ???Confirmed ???Type atorvastatin 40 mg tablet 40 mg PO QHS 03/18/21 05/18/24 History docusate sodium 100 mg capsule 100 mg PO BID 07/01/23 05/18/24 History ferrous sulfate 325 mg (65 mg 650 mg PO DAILY 12/13/23 05/18/24 History iron) tablet (Feosol) metoprolol tartrate 25 mg tablet 25 mg PO BID 01/11/24 05/18/24 History apixaban 2.5 mg tablet (Eliquis) 2.5 mg PO BID 03/06/24 05/18/24 History prednisone 10 mg tablet 10 mg PO .COMPLEX #40 tabs 04/13/24 05/18/24 Rx Have you fallen in the past year?: No PFSH Medical History Thyrotoxicosis Iron deficiency anemia due to chronic blood loss Wears hearing aid Wears glasses Alcohol use Burning pain Arthritis Self-catheterizes urinary bladder Prostate disease Anemia High cholesterol Restless legs Back pain Syncope Difficulty swallowing COPD (chronic obstructive pulmonary disease) Shortness of breath on exertion History of pain when walking History of edema History of echocardiogram History of stress test Cardiology follow-up encounter History of cardioversion Obesity New onset atrial fibrillation (03/14/21) BPH (benign prostatic hyperplasia) Tobacco dependence Essential hypertension Hyperlipidemia Surgical History Hx of right cataract extraction Hx of left cataract extraction History of transurethral resection of prostate History of appendectomy Family History Mother Heart disease Hypertension Thyroid disorder Father Heart disease Brother Hypertension Social History household members: spouse housing: house Smoking Status: Former smoker quit date: 02/26/21 alcohol intake: current alcohol intake frequency: a few times a month HPI HPI Chief Complaint: thyrotoxicosis Details: ANJUM SERRANO, is a 78 M who presents to the office today for follow up. 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 He is off of amiodarone. I gave him a course of prednisone and his levels have normalized. He has 2 days left of prednisone 5 mg. He is feeling well. ROS Const Constitutional: No fatigue or weight change ENT ENT: Positive for ear pressure, hearing loss and sinus pressure; No dizziness/vertigo Cardio Cardiology: No chest pain at rest, chest pain with exertion, shortness of breath or palpitations Skin Skin: No wounds Endo Endocrine: No fatigue or weight change Exam Const General: cooperative, healthy appearing, comfortable, no acute distress, well developed and not cushingoid Nutritional Appearance: well nourished Orientation: alert, awake and oriented x3 HENMT Head: normal to inspection Ears: hearing grossly normal bilaterally Nose: external nose normal Mouth: oral mucosae normal Eyes General: appearance normal, both eyes and all related structures Alignment and Position: alignment normal Periorbital: periorbital findings normal Eyelids: eyelids normal Conjunctivae: conjunctivae normal Neck Neck: normal visual inspection Neck mass: No Thyroid: diffusely enlarged Carotids: no bruits Lymphatic: no lymphadenopathy noted Chest Chest palpation inspection: normal inspection of the chest Resp Effort Inspection: normal respiratory effort, able to speak in complete sentences, symmetric chest movement, no audible wheezes and no cough Auscultation: Bilateral: Clear to Auscultation Cardio Rate: regular rate Rhythm: regular rhythm Pulses: posterior tibial pulses present GI Inspection: normal to inspection Auscultation: normal bowel sounds Palpation: soft and no hepatosplenomegaly Skin General: no rashes or lesions noted Neuro General: patient alert, patient awake and patient oriented x3 Cranial Nerves: CN's II-XI intact bilaterally Co (more content not included)... Normal [facility] Free T3on 05-08-2024 Free T3 [Mass/Vol] 1.8 pg/mL Low 2.18-3.98 [facility] Comment on above: Performed By: #### L 506.0400, L501.46713, L501.9520 ####[facility] [address] [place], [address] T4 Free Directon 05-08-2024 T4 FREE DIRECT 1.21 ng/dL Normal 0.76-1.[address] [facility] Comment on above: Performed By: #### L 506.0400, L501.24709, L501.9520 ####[facility] [address] [place], [address] Thyroid Stim Hormone (TSH)on 05-08-2024 TSH Qn m[IU]/L Low 0.358-3.[address] [facility] Comment on above: Performed By: #### L 506.0400, L501.71293, L501.9520 ####[facility] [address] [place], [address] Thyroid Uptake Single or Mul ton 04-12-2024 Thyroid Uptake Single or Mult [facility] [address] [place] [address] Thyroid Uptake Single or Mult MR#: [id number] Acct: [id number] Name: ANJUM SERRANO Rep #: [id number] : 1945 M 78 From: William Arango PCP: Dr. Reema Myers MD Status: REG CLI Study: Thyroid Uptake Single or Mult Date of Exam: 1 Exam# [id number] Ordering [place]: [place] [id number] CLINICAL: 78-year-old male with history of clinical hyperthyroidism. I-123 THYROID UPTAKE and SCAN COMPARISON: None available FINDINGS: The patient was administered a 329 uCi I-123 capsule by mouth. The 4-hour I-123 radioactive iodine thyroidal uptake was calculated to be 1.1% (normal 5 to 25 %). The 24-hour I-123 radioactive iodine thyroidal uptake was calculated to be 0.7 % (normal 5 to [dv]%). The I-123 thyroid scan demonstrates relative nonvisualization of the thyroid colloid commensurate with the uptake values. NM/Thyroid Uptake Single or Mult IMPRESSION: 1. ABNORMAL DECREASED 4- and 24-hour I-123 radioactive iodine thyroidal uptakes. 2. The I-123 thyroid scan is consistent with the presence of the injurious phase of subacute or chronic thyroiditis in the setting of clinical hyperthyroidism. (Kenia et al, Endocrinol Rev 1: 411, 1980). Pending Final Proof Editing CC: Dr. Reema Myers MD Grocery Department Manager: Signed Normal [facility] Endocrinology Visit Reporton 04-10-2024 Endocrinology Visit Report [facility] [address] [place] [address]. [address] [place] [address] OFFICE VISIT Date of Service: 04/10/24 MR#: [id number] Acct: [id number] Name: ANJUM SERRANO Rep #: [id number] : 1945 Provider: Kristen Oleary Age/Sex: 78/M Location: [facility] Status: Signed Intake Vital Signs 03/02/24 14:27 04/10/24 11:05 Height 6 ft 1 in 6 ft 1 in Weight: 236 lb 242 lb 6 oz BMI 31.1 31.9 BP 120/71 112/71 Blood Pressure Location Lt brachial Rt brachial Position Sitting Sitting Respiration 16 Pulse 96 93 Pulse Source Monitor Monitor Temp 97.9 F Pulse Oximetry (%) 96 92 Oxygen Delivery Method room air room air Intake Visit Reasons: Hyperthyroidism Chief Complaint: thyrotoxicosis Allergies No Known Allergies Allergy (Verified 03/02/24 14:26) Medications ???Medication ???Instructions ???Recorded ???Confirmed ???Type omega-3 fatty acids-fish oil 340 3 ea PO BID supplement 05/31/19 04/10/24 History mg-1,000 mg capsule atorvastatin 40 mg tablet 40 mg PO QHS 03/18/21 04/10/24 History docusate sodium 100 mg capsule 100 mg PO BID 07/01/23 04/10/24 History ferrous sulfate 325 mg (65 mg 650 mg PO DAILY 12/13/23 04/10/24 History iron) tablet (Feosol) metoprolol tartrate 25 mg tablet 25 mg PO BID 01/11/24 04/10/24 History apixaban 2.5 mg tablet (Eliquis) 2.5 mg PO BID 03/06/24 04/10/24 History Have you fallen in the past year?: No PFSH Medical History (Updated 04/10/24 @ 12:[address] Tariq Rosenberg MD) Thyrotoxicosis Iron deficiency anemia due to chronic blood loss Wears hearing aid Wears glasses Alcohol use Burning pain Arthritis Self-catheterizes urinary bladder Prostate disease Anemia High cholesterol Restless legs Back pain Syncope Difficulty swallowing COPD (chronic obstructive pulmonary disease) Shortness of breath on exertion History of pain when walking History of edema History of echocardiogram History of stress test Cardiology follow-up encounter History of cardioversion Obesity New onset atrial fibrillation (03/14/21) BPH (benign prostatic hyperplasia) Tobacco dependence Essential hypertension Hyperlipidemia Surgical History Hx of right cataract extraction Hx of left cataract extraction History of transurethral resection of prostate History of appendectomy Family History Mother Heart disease Hypertension Thyroid disorder Father Heart disease Brother Hypertension Social History household members: spouse housing: house Smoking Status: Former smoker quit date: 02/26/21 alcohol intake: current alcohol intake frequency: a few times a month HPI HPI Chief Complaint: thyrotoxicosis Details: ANJUM SERRANO, is a 78 M who presents to the office today for evaluation and management of thyroid disease. He has a family history of Phillip's thyroiditis. His daughter and his mother are/were both on levothyroxine. He has history of a-fib and CHF. He was on Amiodarone last year. He thinks he stopped it in December. He was having blood loss and this was attributed to the medication. He experienced worsening shortness of breath around June. He has been attributing this to anemia. His thyroid levels have been carefully monitored. In Oct, 2023 his TSH was 2.69 This month, his TSH is suppressed T4 is 3.6 and T3 is 8.1. He also reports difficulty falling asleep (also new to CPAP) He reports edema and leg weakness. He has chronic constipation. He is taking metoprolol 25 mg bid. He states this dose is 1/2 of what he used to take. ROS Const Constitutional: Positive for fatigue and decreased energy; No weight change or change in appetite Eyes Eyes: No change in vision ENT ENT: No dizziness/vertigo or difficulty swallowing Cardio Cardiology: Positive for shortness of breath, dyspnea on exertion and generalized swelling; No chest pain at rest, chest pain with exertion or palpitations Musc Musculoskeletal: Positive for muscle weakness; No abnormal gait, joint pain, numbness or tingling Neuro Neurology: Positive for memory loss; No abnormal gait, numbness or tingling Psych Psychiatric: No change in appetite, Positive for memory loss and No Thoughts of harming yourself/Others Resp Respiratory: No cough, chest congestion or shortness of breath Gastro GI: Positive for constipation; No abdominal pain, diarrhea or difficulty swallowing Genitourinary Male: No burning urination Skin Skin: No itchy eyes or wounds Endo Endocrine: Positive for fatigue; No weight change Aller/Imm Allergy/Immunologic: No itchy eyes Exam Const Gener (more content not included)... Normal [facility] Thyroid Antibodieson 10-10-2 024 TG AB < 1.0 Normal 0.0-0.[address] [facility] Comment on above: Result Comment: Thyr oglobulin Antibody measured by [employer] It should be noted that the presence of thyroglobulin antibodies may not be pathogenic nor diagnostic, especially at very low levels. The assay [employer] has found that four percent of individuals without evidence of thyroid disease or autoimmunity will have positive TgAb levels up to 4 IU/mL. Performed at: [address] [id number] [employer] Operator: Prince Ho PhD, Phone: [phone] Performed By: #### L 501.59950, L501.9520, L506.0400, L3300.6750 #### [facility] [address] [place], [address] THYR PEROX AB < 9 Normal 0-[address] [facility] Comment on above: Performed By: #### L 501.10463, L501.9520, L506.0400, L3300.6750 #### [facility] [address] [place], [address] Free T3on 04-04-2024 Free T3 [Mass/Vol] 8.1 pg/mL High 2.18-3.98 [facility] Comment on above: Performed By: #### L 501.45648, L501.9520, L506.0400, L3300.6750 #### [facility] [address] [place], [address] T4 Free Directon 04-04-2024 T4 FREE DIRECT 3.60 ng/dL High 0.76-1.[address] [facility] Comment on above: Performed By: #### L 501.84053, L501.9520, L506.0400, L3300.6750 #### [facility] [address] [place], [address] Thyroid Stim Hormone (TSH)on 04-04-2024 TSH Qn m[IU]/L Low 0.358-3.[address] [facility] Comment on above: Performed By: #### L 501.95514, L501.9520, L506.0400, L3300.6750 #### [facility] [address] [place], [address] CBC W/Diff, Automatedon 09-0 5-4 Absolute Lymph 0.88 X10 3/uL Normal 0.83-4.[address] [facility] Comment on above: Performed By: #### L 100.0100, L503.6550, L503.6030, L503.0105 ####[facility] [address] [place], [address] Absolute Neut 2.4 X10 3/uL Normal 2.0-7.[address] [facility] Comment on above: Performed By: #### L 100.0100, L503.6550, L503.6030, L503.0105 ####[facility] [address] [place], [address] Basophils/100 WBC (Bld) 1.3 % High 0-[address] [facility] Comment on above: Performed By: #### L 100.0100, L503.6550, L503.6030, L503.0105 ####[facility] [address] [place], [address] Eosinophils/100 WBC (Bld) 9.7 % High 0-[address] [facility] Comment on above: Performed By: #### L 100.0100, L503.6550, L503.6030, L503.0105 ####[facility] [address] [place], [address] Erythrocyte distribution width (RBC) [Ratio] 16.2 % High 11.6-14.[address] [facility] Comment on above: Performed By: #### L 100.0100, L503.6550, L503.6030, L503.0105 ####[facility] [address] [place], [address] Hematocrit (Bld) [Volume fraction] 34.0 % Low 40-[address] [facility] Comment on above: Performed By: #### L 100.0100, L503.6550, L503.6030, L503.0105 ####[facility] [address] [place], [address] Hemoglobin (Bld) [Mass/Vol] 11.0 g/dL Low 13.0-16.[address] [facility] Comment on above: Performed By: #### L 100.0100, L503.6550, L503.6030, L503.0105 ####[facility] [address] [place], [address] IG% 4.300 High 0.0-0.[address] [facility] Comment on above: Result Comment: IG% - Immature Granulocytes (promyelocytes, myelocytes and metamyelocytes) > 1% indicates that a LEFT SHIFT is Present. Performed By: #### L 100.0100, L503.6550, L503.6030, L503.0105 ####[facility] [address] [place], [address] Lymphocytes/100 WBC (Bld) 19.8 % Normal 19-[address] [facility] Comment on above: Performed By: #### L 100.0100, L503.6550, L503.6030, L503.0105 ####[facility] [address] [place], [address] MCH (RBC) [Entitic mass] 32.4 pg High 27.0-32.[address] [facility] Comment on above: Performed By: #### L 100.0100, L503.6550, L503.6030, L503.0105 ####[facility] [address] [place], [address] MCHC (RBC) [Mass/Vol] 32.4 g/dL Normal 32-36 [facility] Comment on above: Performed By: #### L 100.0100, L503.6550, L503.6030, L503.0105 ####[facility] [address] [place], [address] MCV (RBC) [Entitic vol] 100.0 fL High 80-[address] [facility] Comment on above: Performed By: #### L 100.0100, L503.6550, L503.6030, L503.0105 ####[facility] [address] [place], [address] Monocytes/100 WBC (Bld) 10.6 % High 0-[address] [facility] Comment on above: Performed By: #### L 100.0100, L503.6550, L503.6030, L503.0105 ####[facility] [address] [place], [address] Neutrophils/100 WBC (Bld) 54.3 % Normal 47-[address] [facility] Comment on above: Performed By: #### L 100.0100, L503.6550, L503.6030, L503.0105 ####[facility] [address] [place], [address] Nucleated RBC (Bld) [#/Vol] 0.4 10*3/uL Normal 0-[address] [facility] Comment on above: Performed By: #### L 100.0100, L503.6550, L503.6030, L503.0105 ####[facility] [address] [place], [address] Platelet mean volume (Bld) [Entitic vol] 10.2 fL Normal 6.2-12.[address] [facility] Comment on above: Performed By: #### L 100.0100, L503.6550, L503.6030, L503.0105 ####[facility] [address] [place], [address] Platelets (Bld) [#/Vol] 135 10*3/uL Low 150-[address] [facility] Comment on above: Performed By: #### L 100.0100, L503.6550, L503.6030, L503.0105 ####[facility] [address] [place], [address] RBC (Bld) [#/Vol] 3.40 10*6/uL Low 4.6-6.2 [facility] Comment on above: Performed By: #### L 100.0100, L503.6550, L503.6030, L503.0105 ####[facility] [address] [place], [address] RDW SD 57.2 fl High 35.1-43.[address] [facility] Comment on above: Performed By: #### L 100.0100, L503.6550, L503.6030, L503.0105 ####[facility] [address] [place], [address] WBC (Bld) [#/Vol] 4.5 10*3/uL Normal 4.4-11.0 [facility] Comment on above: Performed By: #### L 100.0100, L503.6550, L503.6030, L503.0105 ####[facility] [address] [place], [address] Ferritinon 03-02-2024 Ferritin [Mass/Vol] 28 ng/mL Normal 26-388 [facility] Comment on above: Performed By: #### L 100.0100, L503.6550, L503.6030, L503.0105 ####[facility] [address] [place], [address] Iron+Iron Binding Capacityon 03-02-2024 Iron [Mass/Vol] 93 ug/dL Normal 65-[address] [facility] Comment on above: Performed By: #### L 100.0100, L503.6550, L503.6030, L503.0105 ####[facility] [address] [place], [address] IRON SATURATION 24.2 Normal 15.0-55.[address] [facility] Comment on above: Performed By: #### L 100.0100, L503.6550, L503.6030, L503.0105 ####[facility] [address] [place], [address] TIBC 384 ug/dL Normal 250-[address] [facility] Comment on above: Performed By: #### L 100.0100, L503.6550, L503.6030, L503.0105 ####[facility] [address] [place], [address] Oncology Visit Reporton Oncology Visit Report [facility] [address] [place] [address] OFFICE VISIT Date of Service: 03/02/24 1419 MR#: [id number] Acct: [id number] Name: ANJUM SERRANO Rep #: [id number] : 1945 From: Tamie Coleman MD Age/Sex: 78/M [place] [facility] [place]: Signed HPI Subjective Date of Service 03/02/24 Chief Complaint anemia History of Present Illness 78-year-old gentleman medical history notable for chronic atrial fibrillation on chronic anticoagulation with Eliquis (on hold since October 2023) who presented with severe symptomatic anemia hemoglobin down to 5 g per DL and melena. He underwent upper and lower GI endoscopies twice and no active bleeding lesion was identified. Eventually he underwent a capsule study that he was told showed nol bleeding lesion (official report not yet in EMR). During hospital stay he was transfused with packed red blood cells and has started on oral iron supplement, experienced constipation and black discoloration of the stool since then. [facility] Medical History Iron deficiency anemia due to chronic blood loss Wears hearing aid Wears glasses Alcohol use Burning pain Arthritis Self-catheterizes urinary bladder Prostate disease Anemia High cholesterol Restless legs Back pain Syncope Difficulty swallowing COPD (chronic obstructive pulmonary disease) Shortness of breath on exertion History of pain when walking History of edema History of echocardiogram History of stress test Cardiology follow-up encounter History of cardioversion Obesity New onset atrial fibrillation (03/14/21) BPH (benign prostatic hyperplasia) Tobacco dependence Essential hypertension Hyperlipidemia Surgical History Hx of right cataract extraction Hx of left cataract extraction History of transurethral resection of prostate History of appendectomy Family History Mother Heart disease Hypertension Thyroid disorder Father Heart disease Brother Hypertension Social History household members: spouse housing: house Smoking Status: Former smoker quit date: 02/26/21 alcohol intake: current alcohol intake frequency: a few times a month ROS Constitutional Constitutional: Reports systems reviewed and no addt'l complaints, except as documented; Denies fatigue Eyes Eyes: Reports systems reviewed and no addt'l complaints, except as documented ENT HEENT: Reports systems reviewed and no addt'l complaints, except as documented; Denies bleeding gums or epistaxis Cardiovascular Cardiovascular: Reports systems reviewed and no addt'l complaints, except as documented; Denies chest pain Respiratory/Chest Respiratory/Chest: Denies dyspnea Gastrointestinal Gastrointestinal: Reports systems reviewed and no addt'l complaints, except as documented and other Details: Stools have been dark-colored since he started oral iron ; Denies hematochezia or melena Genitourinary Genitourinary: Denies hematuria Integumentary Integumentary: Denies bleeding lesions Intake Vital Signs 12/08/23 15:29 03/02/24 14:20 03/02/24 14:27 Height 6 ft 1 in 6 ft 1 in 6 ft 1 in Weight: 107.048 kg BMI 31.1 BP 120/71 Blood Pressure Location Lt brachial Position Sitting Respiration 16 Pulse 96 Pulse Source Monitor Temp 97.9 F Temperature Source Temporal Artery Pulse Oximetry (%) 96 Oxygen Delivery Method room air Intake Is patient in pain?: No Allergies No Known Allergies Allergy (Verified 03/02/24 14:26) Medications ???Medication ???Instructions ???Recorded ???Confirmed ???Type omega-3 fatty acids-fish oil 340 3 ea PO BID supplement 05/31/19 03/02/24 History mg-1,000 mg capsule atorvastatin 40 mg tablet 40 mg PO QHS 03/18/21 03/02/24 History docusate sodium 100 mg capsule 100 mg PO BID 07/01/23 03/02/24 History ferrous sulfate 325 mg (65 mg 650 mg PO DAILY 12/13/23 03/02/24 History iron) tablet (Feosol) metoprolol tartrate 25 mg tablet 25 mg PO BID 01/11/24 03/02/24 History apixaban 5 mg tablet (Eliquis) 5 mg PO BID #60 tabs 02/10/24 03/02/24 Rx Have you fallen in the past year?: No Central Venous Access Central Venous Access: No Laboratory Results 03/02/24 01/24/24 12/23/23 13:15 14:53 15:19 Hgb 11.0 L 11.3 L 11.0 L Retic Count TIBC Iron Saturation 24.2 Ferritin 28 36 Vitamin B12 1092 H 12/08/23 11/09/23 11/08/23 16:10 09:29 10:38 Hgb 7.7 L 8.0 L Retic Count 3.77 H TIBC 550 H Iron Saturation Ferritin 18 L 11 L Vitamin B12 11/06/23 11/06/23 11/05/23 12:57 06:11 07:20 Hgb 7.4 L 7.0 L (more content not included)... Normal [facility] Vitamin B12on 03-02-2024 Cobalamin (Vitamin B12) [Mass/Vol] 1092 pg/mL High 211-[address] [facility] Comment on above: Performed By: #### L 100.0100, L503.6550, L503.6030, L503.0105 ####[facility] [address] [place], [place], [id number] Vitamin B12 measurementOrder ed By: Tamie Coleman on 03-02-2024 Cobalamin (Vitamin B12) [Mass/Vol] 1092 pg/mL High 211-[address] [facility] Cardiology Visit Reporton Cardiology Visit Report [facility] [address] [place] [address] OFFICE VISIT Date of Service: 02/10/24 MR#: [id number] Acct: [id number] Name: ANJUM SERRANO Rep #: [id number] : 1945 Provider: SHIRA ray Age/Sex: 78/M Location: [facility] Status: Signed HPI HPI History of Present Illness Details: Anjum Serrano is a 78-year-old male who presents to the office today for a cardiovascular follow up visit. He has a history of hypertension and hyperlipidemia and atrial fibrillation. He was noted to have a stress test and an echocardiogram both of which were normal attempt at DC cardioversion was performed twice which was unsuccessful. He currently is maintaining atrial fibrillation but with a controlled ventricular response rate. He is completely asymptomatic. We had mentioned the possibility of an ablation but he does not appear to be particularly interested. From a cardiac standpoint, the patient is doing well. He denies any palpitations, chest pain, pressure or heaviness. He states breathing has improved. He denies SOB, Orthopnea, and PND. He does not have bleeding issues; no blood in urine, stool or nosebleeds. He denies any decrease in energy level, myalgias, or claudication. He does not have edema, or sudden weight gain. He does acknowledge occasional lightheadedness with quick positional changes. He denies dizziness, syncopal or near syncopal episodes, and headaches. Intake Vital Signs 11/12/23 12:57 02/02/24 08:20 02/10/24 15:25 Height 6 ft 1 in 6 ft 1 in 6 ft 1 in Weight: 236 lb BMI 31.1 BP 111/67 Blood Pressure Location Lt brachial Position Sitting Respiration 18 Pulse 87 Pulse Source Monitor Pulse Oximetry (%) 94 Intake Visit Reasons: 3 M FU Media Production Support Manager Required: No Is patient in pain?: No Allergies No Known Allergies Allergy (Verified 02/10/24 15:40) Medications ???Medication ???Instructions ???Recorded ???Confirmed ???Type omega-3 fatty acids-fish oil 340 3 ea PO BID supplement 05/31/19 02/10/24 History mg-1,000 mg capsule atorvastatin 40 mg tablet 40 mg PO QHS 03/18/21 02/10/24 History docusate sodium 100 mg capsule 100 mg PO BID 07/01/23 02/10/24 History ferrous sulfate 325 mg (65 mg 650 mg PO DAILY 12/13/23 02/10/24 History iron) tablet (Feosol) metoprolol tartrate 25 mg tablet 25 mg PO BID 01/11/24 02/10/24 History apixaban 5 mg tablet (Eliquis) 5 mg PO BID #60 tabs 02/10/24 02/10/24 Rx Have you fallen in the past year?: No PFSH Medical History Iron deficiency anemia due to chronic blood loss Wears hearing aid Wears glasses Alcohol use Burning pain Arthritis Self-catheterizes urinary bladder Prostate disease Anemia High cholesterol Restless legs Back pain Syncope Difficulty swallowing COPD (chronic obstructive pulmonary disease) Shortness of breath on exertion History of pain when walking History of edema History of echocardiogram History of stress test Cardiology follow-up encounter History of cardioversion Obesity New onset atrial fibrillation (03/14/21) BPH (benign prostatic hyperplasia) Tobacco dependence Essential hypertension Hyperlipidemia Surgical History Hx of right cataract extraction Hx of left cataract extraction History of transurethral resection of prostate History of appendectomy Family History Mother Heart disease Hypertension Thyroid disorder Father Heart disease Brother Hypertension Social History household members: spouse housing: house Smoking Status: Former smoker quit date: 02/26/21 alcohol intake: current alcohol intake frequency: a few times a month ROS Const Const: Negative for fatigue, weakness, fever(s), headache(s), chills, frequent falls, weight gain or weight loss Eyes Eyes: Negative for blind spots, loss of peripheral vision, transient loss of vision, blurry vision, change in vision, double vision, floaters or tunnel vision ENT ENT: Negative for headache(s), dizziness, Nosebleed/epistaxis, balance problems or neck pain Cardio Chest Pain: No Palpitations: No Edema: None Muscle aches with walking: None Resp Respiratory: Negative for SOB with activity, SOB at rest or SOB orthopnea SOB lying down GI GI: Negative nausea, vomiting, heartburn, bloating, vomiting blood/hematemesis, bright, red blood in stools or black,tarry stools Musc Musc: Negative for muscle aches/ myalgia, muscle weakness, joint pain or balance problems Neuro Neuro: Positive for lightheadedness (occasional with quick positional changes); Negative for dizzine (more content not included)... Normal [facility] Gastroenterology Visit Repor ton 02-10-2024 Gastroenterology Visit Report [facility] [address] [place] [address] OFFICE VISIT Date of Service: 02/10/24 MR#: [id number] Acct: [id number] Name: ANJUM SERRANO Rep #: [id number] : 1945 Provider: Kaushal Jarvis DO Age/Sex: 78/M Location: [facility] [place] Status: Signed Intake Vital Signs 11/09/23 08:16 02/02/24 08:20 Height 6 ft 1 in 6 ft 1 in Weight: 233 lb BMI 30.7 BP 87/64 L Blood Pressure Location Lt brachial Position Sitting Respiration 20 H Pulse 73 Pulse Source Monitor Temp 97.1 F L Pulse Oximetry (%) 95 Oxygen Delivery Method room air Intake Visit Reasons: 3 M FU Chief Complaint: anemia Allergies No Known Allergies Allergy (Verified 02/10/24 15:40) Medications ???Medication ???Instructions ???Recorded ???Confirmed ???Type omega-3 fatty acids-fish oil 340 3 ea PO BID supplement 05/31/19 02/10/24 History mg-1,000 mg capsule atorvastatin 40 mg tablet 40 mg PO QHS 03/18/21 02/10/24 History docusate sodium 100 mg capsule 100 mg PO BID 07/01/23 02/10/24 History ferrous sulfate 325 mg (65 mg 650 mg PO DAILY 12/13/23 02/10/24 History iron) tablet (Feosol) metoprolol tartrate 25 mg tablet 25 mg PO BID 01/11/24 02/10/24 History apixaban 5 mg tablet (Eliquis) 5 mg PO BID #60 tabs 02/10/24 02/10/24 Rx Have you fallen in the past year?: No PFSH Medical History Iron deficiency anemia due to chronic blood loss Wears hearing aid Wears glasses Alcohol use Burning pain Arthritis Self-catheterizes urinary bladder Prostate disease Anemia High cholesterol Restless legs Back pain Syncope Difficulty swallowing COPD (chronic obstructive pulmonary disease) Shortness of breath on exertion History of pain when walking History of edema History of echocardiogram History of stress test Cardiology follow-up encounter History of cardioversion Obesity New onset atrial fibrillation (03/14/21) BPH (benign prostatic hyperplasia) Tobacco dependence Essential hypertension Hyperlipidemia Surgical History Hx of right cataract extraction Hx of left cataract extraction History of transurethral resection of prostate History of appendectomy Family History Mother Heart disease Hypertension Thyroid disorder Father Heart disease Brother Hypertension Social History household members: spouse housing: house Smoking Status: Former smoker quit date: 02/26/21 alcohol intake: current alcohol intake frequency: a few times a month HPI HPI Chief Complaint: anemia Details: ANJUM SERRANO, is a 78 M who presents to the office today for follow up. OV 5.14.24 pt reports a bowel movement every other day to every 3rd day; pt notes dark stool and sometimes notes blood. Pt reports taking daily stool softener and fish oil. Pt notes an increase in gas and bloating, but reports that he is eating less. OV 8.15.24 pt reports that since returning from [place] 2 weeks ago he has been feeling good. States that he has more energy and that he has not had any blood in his stool. Pt states that he has an appointment with Dr Dodd after this appt to discuss restarting Eliquis. ROS Const Constitutional: Positive for fatigue and weakness; No fever(s) or weight change ENT ENT: No difficulty swallowing Gastro GI: Positive for Blood in stool; No abdominal pain, belching, bloating, change in bowel habits, change in stool character, coffee ground emesis, constipation, cramping, diarrhea, heartburn, difficulty swallowing, feeling full early, excessive flatus, incontinent of stools, Vomiting blood/hematemesis, loose stools, Black,tarry stools, nausea/dyspepsia, pain with swallowing, vomiting or other Musc Musculoskeletal: No joint pain Skin Skin: No yellowing of the eye or itchy eyes Neuro Neurology: Positive for weakness Psych Psychiatric: No anxiety and No depression Endo Endocrine: Positive for fatigue; No weight change Aller/Imm Allergy/Immunologic: No itchy eyes Jamaal/Lymp Hematologic/Lymphatic: No easy bleeding or easy bruising Exam Const General: cooperative and comfortable Nutritional Appearance: average body habitus and well nourished HENAL Head: normal to inspection Ears: hearing grossly normal bilaterally Nose: external nose normal Face and sinus: normal facial exam Mouth: oral mucosae normal Throat: posterior oropharynx normal Eyes General: appearance normal, both eyes and all related structures Neck Neck: normal visual inspection Chest Chest palpation inspection: normal inspection of the chest and normal palpatio (more content not included)... Normal [facility] Pulmonary Visit Reporton Pulmonary Visit Report [facility] [place] [address] [place] [address] OFFICE VISIT Date of Service: 02/02/24 MR#: [id number] Acct: [id number] Name: ANJUM SERRANO Rep #: [id number] : 1945 Provider: SHIRA Madrigal Age/Sex: 78/M [facility] Status: Signed Assessment and Plan Assessment and Plan (1) Central sleep apnea: Status: Acute Plan: Improved with the use of ASV ventilation. Continue to monitor with a 4-month follow-up visit. No indication for titration study. The patient is using and benefiting from PAP therapy. (2) Lung nodule: Status: Acute Plan: Stable. Consider repeating CT of the chest in 12 months. (3) COPD (chronic obstructive pulmonary disease): Status: Chronic Qualifiers: COPD type: emphysema Emphysema type: centrilobular Qualified Code(s): J43.2 - Centrilobular emphysema Plan: Deteriorated. The patient appears to be an exacerbation of COPD today. Treating with azithromycin and a prednisone burst. Follow-up in the office in 4 months. No additional testing at this time. He has been encouraged to contact the office if symptoms do not improve after completing the recommended therapies. He conveys understanding. Medications: New azithromycin take 500 mg today (day 1), then 250 mg for 4 days (days 2-5) PO 6 tabs 0RF prednisone administer with food or milk 60 mg (3 x 20 mg) PO QDAY 15 tabs 0RF Plan Details Follow Up: 4 Months ([facility]) HPI 3 M FU Chief Complaint: Routine follow-up HPI Comments Details: This patient presents to the office today to discuss test results. He is ambulatory and currently on room air. He has not recently been seen in the ED or urgent care for any respiratory illness. He has not required any antibiotics or prednisone for any breathing problems. He is not currently on any maintenance inhalers. He does have shortness of breath on exertion, however he believes it has improved recently. He has a cough that is productive of yellow-colored sputum, this has been on and off for a month. It started and he was treated with an antibiotic by his primary care doctor. Symptoms did improve, however he did travel to [facility] and became symptomatic upon his return. He also reports wheezing. He denies any chest tightness, chest pain or palpitations. He denies any fever, chills or body aches. He reports excellent compliance with his PAP device. He does admit that he did not take it to [facility] on vacation, this explains the 1 week of 0 use. Since he has had it for 2 months, he typically uses it every night. He wakes up feeling rested and refreshed. He is not having difficulty with dry mouth or headaches. Test results personally reviewed with the patient: Titration study completed on November 01, 2023. Impression is treatment emergent central sleep apnea. Recommendation is ASV EPAP 8 cmH2O, pressure support minimum 6 cmH2O, pressure support maximum 17 cm of water with auto rate. CT of the chest without contrast completed on September 17, 2023. Noted is hyperinflation. Emphysematous changes. Persistent scarring in the right upper lobe is worse on the right side although there has been improvement. Central lobar emphysematous changes seen in the right upper lobe. Stable 1.1 cm x 0.8 cm nodule in the peripheral lateral aspect of the right upper lobe. Stable examination. Follow-up in 12 months. Compliance report for the past 30 days shows 73% compliance with average use of 6 hours and 9 minutes per night. Current setting is ASV EPAP 8, minimum pressure support 6, maximum pressure support 17. Residual AHI of 8.1 events per hour. Leaks do appear to be problematic. Intake Vital Signs 10/20/23 07:54 12/08/23 15:29 02/02/24 08:20 Height 6 ft 1 in 6 ft 1 in 6 ft 1 in Weight: 233 lb BMI 30.7 BP 87/64 L Blood Pressure Location Lt brachial Position Sitting Respiration 20 H Pulse 73 Pulse Source Monitor Temp 97.1 F L Temperature Source Temporal Artery Pulse Oximetry (%) 95 Oxygen Delivery Method room air Intake Visit Reasons: 3 M FU Chief Complaint: anemia Media Production Support Manager Required: No DME Vendor: pap- Accompanied by: Self Is patient in pain?: No Allergies No Known Allergies Allergy (Verified 02/02/24 10:22) Medications ???Medication ???Instructions ???Recorded ???Confirmed ???Type omega-3 fatty acids-fish oil 340 3 ea PO BID supplement 05/31/19 02/02/24 History mg-1,000 mg capsule atorvastatin 40 mg tablet 40 mg PO QHS 03/18/21 02/02/24 History docusate sodium 100 mg capsule 100 mg PO BID 07/01/23 02/02/24 History ferrous sulfate 325 mg (65 mg 650 mg PO DAILY 12/13/23 02/02/24 History iron) tablet (Feosol) metoprolol tartrate 25 mg tablet 25 mg PO BID 01/11/24 02/02/24 History azithromycin 250 mg tablet S (more content not included)... Normal [facility] CBC W/Diff, Automatedon 12-27 Anisocytosis Ql (Bld) 2+ Normal [facility] Comment on above: Performed By: #### L 100.0100, L503.6550, L503.6030 ####[facility] [address] [place], [address] Ferritinon 01-24-2024 Ferritin [Mass/Vol] 36 ng/mL Normal 26-388 [facility] Comment on above: Performed By: #### L 100.0100, L503.6550, L503.6030 ####[facility] [address] [place], [address] Iron+Iron Binding Capacityon 01-24-2024 Iron [Mass/Vol] 59 ug/dL Low 65-[address] [facility] Comment on above: Performed By: #### L 100.0100, L503.6550, L503.6030 ####[facility] [address] [place], [address] IRON SATURATION 15.6 Normal 15.0-55.[address] [facility] Comment on above: Performed By: #### L 100.0100, [id number], L503.6030 ####[facility] [address] [place], [address] TIBC 377 ug/dL Normal 250-[address] [facility] Comment on above: Performed By: #### L 100.0100, [id number], L503.6030 ####[facility] [address] [place], [address] CBC W/Diff, Automatedon 11-27 MACROCYTOSIS 1+ Normal [facility] Comment on above: Performed By: #### L 500.4100 #### [facility] [address] [place], [address] MICROCYTIC 1+ Normal [facility] Comment on above: Performed By: #### L 500.4100 #### [facility] [address] [place], [address] OVALOCYTE RARE Normal [facility] Comment on above: Performed By: #### L 500.4100 #### [facility] [address] [place], [address] POLYCHROMASIA RARE Normal [facility] Comment on above: Performed By: #### L 500.4100 #### [facility] [address] [place], [address] Anisocytosis Ql (Bld) 2+ Normal [facility] Comment on above: Performed By: #### L 500.4100 #### [facility] [address] [place], [address] SMEAR COMMENT SCANNED Normal [facility] Comment on above: Performed By: #### L 500.4100 #### [facility] [address] [place], [address] Absolute Neut Normal 2.0-7.[address] [facility] Comment on above: Result Comment: DUPL ICATE Performed By: #### L 100.0100 ####[facility] [address] [place], [address] HCT Normal 40-[address] [facility] Comment on above: Result Comment: DUPL ICATE Performed By: #### L 100.0100 ####[facility] [address] [place], [address] HGB Normal 13.0-16.[address] [facility] Comment on above: Result Comment: DUPL ICATE Performed By: #### L 100.0100 ####[facility] [address] [place], [address] MCH Normal 27.0-32.[address] [facility] Comment on above: Result Comment: DUPL ICATE Performed By: #### L 100.0100 ####[facility] [address] [place], [address] MCHC Normal 32-[address] [facility] Comment on above: Result Comment: DUPL ICATE Performed By: #### L 100.0100 ####[facility] [address] [place], [address] MCV Normal 80-[address] [facility] Comment on above: Result Comment: DUPL ICATE Performed By: #### L 100.0100 ####[facility] [address] [place], [address] NEUT% Normal 47-[address] [facility] Comment on above: Result Comment: DUPL ICATE Performed By: #### L 100.0100 ####[facility] [address] [place], [address] PLT Normal 150-[address] [facility] Comment on above: Result Comment: DUPL ICATE Performed By: #### L 100.0100 ####[facility] [address] [place], [address] RBC Normal 4.6-6.[address] [facility] Comment on above: Result Comment: DUPL ICATE Performed By: #### L 100.0100 ####[facility] [address] [place], [address] RDW CV Normal 11.6-14.[address] [facility] Comment on above: Result Comment: DUPL ICATE Performed By: #### L 100.0100 ####[facility] [address] [place], [address] RDW SD Normal 35.1-43.[address] [facility] Comment on above: Result Comment: DUPL ICATE Performed By: #### L 100.0100 ####[facility] [address] [place], [address] WBC Normal 4.4-11.[address] [facility] Comment on above: Result Comment: DUPL ICATE Performed By: #### L 100.0100 ####[facility] [address] [place], [address] Ferritinon 12-23-2023 Ferritin [Mass/Vol] 40 ng/mL Normal 26-388 [facility] Comment on above: Order Comment: DR. Camilo CRAIG ORDERED CBCD Performed By: #### L 500.4100 #### [facility] [address] [place], [address] Iron+Iron Binding Capacityon 12-23-2023 Iron [Mass/Vol] 147 ug/dL Normal 65-[address] [facility] Comment on above: Order Comment: DR. Camilo CRAIG ORDERED CBCD Performed By: #### L 500.4100 #### [facility] [address] [place], [address] IRON SATURATION 34.3 Normal 15.0-55.[address] [facility] Comment on above: Order Comment: DR. Camilo CRAIG ORDERED CBCD Performed By: #### L 500.4100 #### [facility] [address] [place], [address] TIBC 428 ug/dL Normal 250-[address] [facility] Comment on above: Order Comment: DR. Camilo CRAIG ORDERED CBCD Performed By: #### L 500.4100 #### [facility] [address] [place], [address] Absolute lymphocyte countOrd ered By: Shawn Moore on 11-06-2023 Lymphocytes Auto (Unsp spec) [#/Vol] 0.97 10*3/uL 0.83-4.[address] [facility] Basophil percentageOrdered B y: Shawn Moore on 11-06-2023 Basophil percentage Not Reportable [facility] Hemoglobin (Bld) [Mass/Vol] 7.4 g/dL 13.0-16.[address] [facility] Neutrophils (Bld) [#/Vol] 4.2 10*3/uL 2.0-7.[address] [facility] WBC (Bld) [#/Vol] 6.1 10*3/uL 4.4-11.0 [facility] Blood band neutrophil count as percentage of total leukocytesOrdered By: Shawn Moore on 11-06-2023 Band form neutrophils/100 WBC (Bld) 2 % 0-[address] [facility] Blood basophils/100 leukocyt esOrdered By: Lilly Navarrete on 11-06-2023 Basophils/100 WBC (Bld) 1 % 0-[address] [facility] Blood eosinophils/100 leukoc ytesOrdered By: Shawn Moore on 11-06-2023 Eosinophils/100 WBC (Bld) 5 % 0-[address] [facility] Blood lymphocytes/100 leukoc ytesOrdered By: Shawn Moore on 11-06-2023 Lymphocytes/100 WBC (Bld) 16 % 19-[address] [facility] Blood metamyelocytes/100 ken kocytesOrdered By: Shawn Moore on 11-06-2023 Metamyelocytes/100 WBC (Bld) 2 % 0-[address] [facility] Blood monocytes/100 leukocyt esOrdered By: Shawn Moore on 11-06-2023 Monocytes/100 WBC (Bld) 5 % 0-[address] [facility] Blood platelet adequacy dete ction by light microscopyOrdered By: Shawn Moore on 11-06-2023 Platelets LM Ql (Bld) SLT DEC ADEQ [facility] Blood polychromasia detectio n by light microscopyOrdered By: Lilly Navarrete on 11-06-2023 Polychromasia LM Ql (Bld) 2+ [facility] Blood segmented neutrophils/ 100 leukocytesOrdered By: Shawn Moore on 11-06-2023 Segmented neutrophils/100 WBC (Bld) 66 % 47-[address] [facility] Determination of erythrocyte mean corpuscular volume (MCV)Ordered By: Shawn Moore on 11-06-2023 MCV (RBC) [Entitic vol] 95.0 fL 80-[address] [facility] Erythrocyte distribution wid th ratioOrdered By: Shawn Moore on 11-06-2023 Erythrocyte distribution width (RBC) [Ratio] 17.0 % 11.6-14.[address] [facility] Erythrocyte distribution wid th standard deviationOrdered By: Shawn Moore on 11-06-2023 Erythrocyte distribution width (RBC) [Entitic vol] 58.3 fL 35.1-43.[address] [facility] Hematocrit Auto (Bld) [Volum e fraction]Ordered By: Shawn Moore on 11-06-2023 Hematocrit (Bld) [Volume fraction] 24.5 % 40-[address] [facility] - Hematology and Cell countsOrdered By: Shawn Moore on 11-06-2023 MCH (RBC) [Entitic mass] 28.7 pg 27.0-32.[address] [facility] MCHC (RBC) [Mass/Vol] 30.2 g/dL 32-36 [facility] Myelocytes/100 WBC (Bld) 4 % 0-[address] [facility] Platelet mean volume (Bld) [Entitic vol] 10.4 fL 6.2-12.[address] [facility] Platelets (Bld) [#/Vol] 138 10*3/uL 150-[address] [facility] - Hematology and Cell countsOrdered By: Lilly Navarrete on 11-06-2023 Anisocytosis Ql (Bld) 2+ [facility] Ovalocyte detectionOrdered B y: Lilly Navarrete on 11-06-2023 Ovalocytes LM Ql (Bld) 2+ [facility] RBC Auto (Bld) [#/Vol]Ordere d By: Shawn Moore on 11-06-2023 RBC (Bld) [#/Vol] 2.58 10*6/uL 4.6-6.2 [facility] Red blood cell stomatocyte d etectionOrdered By: Lilly Navarrete on 11-06-2023 Stomatocytes LM Ql (Bld) RARE [facility] Review by pathologistOrdered By: Shawn Moore on 11-06-2023 Pathologist review Marcos (Unsp spec) [Interp] October [facility] Total cell countOrdered By: Shawn Moore on 11-06-2023 Cells counted Molgen (Bld/Tiss) [#] [address] [facility] Absolute lymphocyte countOrd ered By: Roberto Hussein on 11-05-2023 Lymphocytes Auto (Unsp spec) [#/Vol] 1.27 10*3/uL 0.83-4.[address] [facility] Activated partial thrombopla stin time (aPTT) in platelet poor plasma by coagulation aOrdered By: Gilberto Aquino on 11-05-2023 aPTT Coag (PPP) [Time] 26.8 s 24.1-36.2 [facility] Basophil percentageOrdered B y: Roberto Hussein on 11-05-2023 Basophil percentage Not Reportable [facility] Chloride [Moles/Vol] 111 mmol/L 98-107 [facility] Glucose [Mass/Vol] 112 mg/dL 74-106 [facility] Comment on above: Fasting Glucose resu lt from 100 to 125 mg/dL suggests IMPAIRED HOMEOSTASIS per A.D.A. criteria. Hemoglobin (Bld) [Mass/Vol] 7.6 g/dL 13.0-16.[address] [facility] Neutrophils (Bld) [#/Vol] 4.7 10*3/uL 2.0-7.[address] [facility] Potassium [Moles/Vol] 3.9 mmol/L 3.5-5.1 [facility] Sodium [Moles/Vol] 141 mmol/L 136-145 [facility] WBC (Bld) [#/Vol] 7.5 10*3/uL 4.4-11.0 [facility] Basophil percentageOrdered B y: Gilberto Aquino on 11-05-2023 Bilirubin [Mass/Vol] 0.90 mg/dL 0.20-1.00 [facility] Comment on above: For patients on eltr ombopag therapy, use of Dimension [place] TBIL is not recommended. Protein [Mass/Vol] 6.4 g/dL 6.4-8.2 [facility] Blood band neutrophil count as percentage of total leukocytesOrdered By: Roberto Hussein on 11-05-2023 Band form neutrophils/100 WBC (Bld) 3 % 0-[address] [facility] Blood eosinophils/100 leukoc ytesOrdered By: Roberto Hussein on 11-05-2023 Eosinophils/100 WBC (Bld) 6 % 0-[address] [facility] Blood lymphocytes/100 leukoc ytesOrdered By: Roberto Hussein on 11-05-2023 Lymphocytes/100 WBC (Bld) 17 % 19-[address] [facility] Blood metamyelocytes/100 ken kocytesOrdered By: Roberto Hussein on 11-05-2023 Metamyelocytes/100 WBC (Bld) 2 % 0-[address] [facility] Blood monocytes/100 leukocyt esOrdered By: Roberto Hussein on 11-05-2023 Monocytes/100 WBC (Bld) 9 % 0-[address] [facility] Blood platelet adequacy dete ction by light microscopyOrdered By: Roberto Hussein on 11-05-2023 Platelets LM Ql (Bld) ADEQUATE ADEQ [facility] Blood segmented neutrophils/ 100 leukocytesOrdered By: Roberto Hussein on 11-05-2023 Segmented neutrophils/100 WBC (Bld) 59 % 47-[address] [facility] Determination of erythrocyte mean corpuscular volume (MCV)Ordered By: Roberto Hussein on 11-05-2023 MCV (RBC) [Entitic vol] 94.4 fL 80-[address] [facility] Direct bilirubinOrdered By: Gilberto Aquino on 11-05-2023 Bilirubin.direct [Mass/Vol] 0.25 mg/dL 0.00-0.[address] [facility] Erythrocyte distribution wid th ratioOrdered By: Roberto Hussein on 11-05-2023 Erythrocyte distribution width (RBC) [Ratio] 17.7 % 11.6-14.[address] [facility] Erythrocyte distribution wid th standard deviationOrdered By: Roberto Hussein on 11-05-2023 Erythrocyte distribution width (RBC) [Entitic vol] 59.3 fL 35.1-43.[address] [facility] Hematocrit Auto (Bld) [Volum e fraction]Ordered By: Roberto Hussein on 11-05-2023 Hematocrit (Bld) [Volume fraction] 25.2 % 40-[address] [facility] - Chemistry and C hemistry - challengeOrdered By: Gilberto Aquino on 11-05-2023 ALP [Catalytic activity/Vol] 47 U/L 45-[address] [facility] ALT [Catalytic activity/Vol] 19 U/L 16-[address] [facility] Globulin (S) [Mass/Vol] 3.2 g/dL 2.2-4.[address] [facility] - Chemistry and C hemistry - challengeOrdered By: Roberto Hussein on 11-05-2023 CO2 [Moles/Vol] 26.0 mmol/L 21.0-32.[address] [facility] Urea nitrogen/Creatinine [Mass ratio] 12.7 mg/mg 10-[address] [facility] - CoagulationOrde red By: Gilberto Aquino on 11-05-2023 INR Coag (Bld) [Relative time] 1.2 {INR} [facility] PT Coag (PPP) [Time] 15.5 s 11.7-14.9 [facility] - Hematology and Cell countsOrdered By: Roberto Hussein on 11-05-2023 Anisocytosis Ql (Bld) 1+ [facility] MCH (RBC) [Entitic mass] 28.5 pg 27.0-32.[address] [facility] MCHC (RBC) [Mass/Vol] 30.2 g/dL 32-36 [facility] Comment on above: Delta: 28.6 on 11/03-1345 Myelocytes/100 WBC (Bld) 4 % 0-[address] [facility] Platelet mean volume (Bld) [Entitic vol] 10.4 fL 6.2-12.[address] [facility] Platelets (Bld) [#/Vol] 150 10*3/uL 150-[address] [facility] No Panel InformationOrdered By: Roberto Hussein on 11-05-2023 Estimated Creatinine Clearance Calc 69.35 ml/min [facility] Estimated GFR (MDRD) Amer 83 mL/min >[address] [facility] Comment on above: GFR Calc Estimated GFR (MDRD) Non-Af Amer 68 mL/min >[address] [facility] Comment on above: Non- GFR Calc RBC Auto (Bld) [#/Vol]Ordere d By: Roberto Hussein on 11-05-2023 RBC (Bld) [#/Vol] 2.67 10*6/uL 4.6-6.2 [facility] RBC morphologyOrdered By: Negrita Hussein on 11-05-2023 RBC morphology finding Nom (Bld) N CHROM NORMAL NORM C&C [facility] Review by pathologistOrdered By: Roberto Hussein on 11-05-2023 Pathologist review Marcos (Unsp spec) [Interp] May foll [facility] Serum or plasma calcium aditya urement (mass/volume)Ordered By: Roberto Hussein on 11-05-2023 Calcium [Mass/Vol] 8.4 mg/dL 8.5-10.1 [facility] Serum or plasma creatinine m easurement (mass/volume)Ordered By: Roberto Hussein on 11-05-2023 Creatinine [Mass/Vol] 1.10 mg/dL 0.70-1.30 [facility] Comment on above: The validity of the calculated GFR & GFRAA in patients over 70 years has not been determined. Clinical correlation is essential. Serum or plasma urea nitroge n measurement (mass/volume)Ordered By: Roberto Hussein on 11-05-2023 Urea nitrogen [Mass/Vol] 14 mg/dL 7-[address] [facility] Thin prep Papanicolaou smear with manual screeningOrdered By: Gilberto Aquino on 11-05-2023 Thin prep Papanicolaou smear with manual screening 3.2 g/dL 3.2-5.[address] [facility] Thin prep Papanicolaou smear with manual screening 11 U/L 15-[address] [facility] Thin prep Papanicolaou smear with manual screeningOrdered By: Roberto Hussein on 11-05-2023 Thin prep Papanicolaou smear with manual screening 4 5-[address] [facility] Total cell countOrdered By: Roberto Hussein on 11-05-2023 Cells counted Molgen (Bld/Tiss) [#] [address] [facility] Absolute lymphocyte countOrd ered By: Rhea Rao on 11-04-2023 Lymphocytes Auto (Unsp spec) [#/Vol] 1.00 10*3/uL 0.83-4.[address] [facility] Comment on above: Previous reported re sult: 1.12 X10^3/uLEdited by: BETTE on 11/04/23:1406 Automated lymphocyte count a s percentage of total leukocytesOrdered By: Rhea Rao on 11-04-2023 Lymphocytes/100 WBC Auto (Unsp spec) [employer] [facility] Comment on above: Previous reported re sult: 12.9 %Edited by: BETTE on 11/04/23:1406 Basophil percentageOrdered B y: Rhea Rao on 11-04-2023 Basophil percentage [employer] [facility] Comment on above: Previous reported re sult: 60.8 %Edited by: BETTE on 11/04/23:1406 Previous reported re sult: 10.5 %Edited by: BETTE on 11/04/23:1406 Previous reported re sult: 7.8 %Edited by: BETTE on 11/04/23:1406 Previous reported re sult: 0.6 %Edited by: BETTE on 11/04/23:1406 Bilirubin [Mass/Vol] 0.50 mg/dL 0.20-1.00 [facility] Comment on above: For patients on eltr ombopag therapy, use of Dimension [place] TBIL is not recommended. Chloride [Moles/Vol] 109 mmol/L 98-107 [facility] Glucose [Mass/Vol] 165 mg/dL 74-106 [facility] Comment on above: Fasting Glucose resu lt greater than or equal to 126 mg/dL suggests DIABETES MELLITUS per A.D.A. criteria. Hemoglobin (Bld) [Mass/Vol] 5.5 g/dL 13.0-16.[address] [facility] Comment on above: RESULTS CALLED TO [facility] 11/04/23 1404 eDnia Grace.REPORT READ BACK BY [facility] Neutrophils (Bld) [#/Vol] 6.1 10*3/uL 2.0-7.[address] [facility] Comment on above: Previous reported re sult: 5.3 X10^3/uLEdited by: BETTE on 11/04/23:140 Potassium [Moles/Vol] 4.3 mmol/L 3.5-5.1 [facility] Protein [Mass/Vol] 6.5 g/dL 6.4-8.2 [facility] Sodium [Moles/Vol] 140 mmol/L 136-145 [facility] WBC (Bld) [#/Vol] 8.7 10*3/uL 4.4-11.0 [facility] Blood band neutrophil count as percentage of total leukocytesOrdered By: Rhea Rao on 11-04-2023 Band form neutrophils/100 WBC (Bld) 2 % 0-[address] [facility] Blood basophils/100 leukocyt esOrdered By: Rhea Rao on 11-04-2023 Basophils/100 WBC (Bld) 2 % 0-[address] [facility] Blood eosinophils/100 leukoc ytesOrdered By: Rhea Rao on 11-04-2023 Eosinophils/100 WBC (Bld) 5 % 0-[address] [facility] Blood lymphocytes/100 leukoc ytesOrdered By: Rhea Rao on 11-04-2023 Lymphocytes/100 WBC (Bld) 12 % 19-[address] [facility] Blood metamyelocytes/100 ken kocytesOrdered By: Rhea Rao on 11-04-2023 Metamyelocytes/100 WBC (Bld) 3 % 0-[address] [facility] Blood monocytes/100 leukocyt esOrdered By: Rhea Rao on 11-04-2023 Monocytes/100 WBC (Bld) 4 % 0-[address] [facility] Blood platelet adequacy dete ction by light microscopyOrdered By: Rhea Rao on 11-04-2023 Platelets LM Ql (Bld) ADEQUATE ADEQ [facility] Blood promyelocytes/100 leuk ocytesOrdered By: Rhea Rao on 11-04-2023 Promyelocytes/100 WBC (Bld) 3 % 0-[address] [facility] Blood segmented neutrophils/ 100 leukocytesOrdered By: Rhea Rao on 11-04-2023 Segmented neutrophils/100 WBC (Bld) 68 % 47-[address] [facility] Determination of erythrocyte mean corpuscular volume (MCV)Ordered By: Rhea Rao on 11-04-2023 MCV (RBC) [Entitic vol] 99.0 fL 80-[address] [facility] Erythrocyte distribution wid th ratioOrdered By: Reha Rao on 11-04-2023 Erythrocyte distribution width (RBC) [Ratio] 17.2 % 11.6-14.[address] [facility] Erythrocyte distribution wid th standard deviationOrdered By: Rhea Rao on 11-04-2023 Erythrocyte distribution width (RBC) [Entitic vol] 61.5 fL 35.1-43.[address] [facility] Hematocrit Auto (Bld) [Volum e fraction]Ordered By: Rhea Rao on 11-04-2023 Hematocrit (Bld) [Volume fraction] 19.2 % 40-[address] [facility] Immature granulocytes/100 WB C Auto (Bld)Ordered By: Rhea Rao on 11-04-2023 Immature granulocytes/100 WBC (Bld) NEEDLEWORKER [facility] Comment on above: Previous reported re sult: 7.400 %Edited by: BETTE on 11/04/23:1406IG% - Immature Granulocytes (promyelocytes, myelocytes and metamyelocytes) > 1% indicates that a LEFT SHIFT is Present. Laboratory - Chemistry and C hemistry - challengeOrdered By: Rhea Rao on 11-04-2023 Albumin/Globulin [Mass ratio] 1.0 {ratio} 0.9-2.[address] [facility] ALP [Catalytic activity/Vol] 46 U/L 45-[address] [facility] ALT [Catalytic activity/Vol] 21 U/L 16-[address] [facility] CO2 [Moles/Vol] 26.0 mmol/L 21.0-32.[address] [facility] Globulin (S) [Mass/Vol] 3.3 g/dL 2.2-4.[address] [facility] Natriuretic peptide B (Bld) [Mass/Vol] 254.7 pg/mL 0-[address] [facility] Urea nitrogen/Creatinine [Mass ratio] 18.8 mg/mg 10-[address] [facility] Laboratory - Hematology and Cell countsOrdered By: Rhea Rao on 11-04-2023 MCH (RBC) [Entitic mass] 28.4 pg 27.0-32.[address] [facility] MCHC (RBC) [Mass/Vol] 28.6 g/dL 32-36 [facility] Myelocytes/100 WBC (Bld) 1 % 0-[address] [facility] Platelet mean volume (Bld) [Entitic vol] 10.9 fL 6.2-12.[address] [facility] Platelets (Bld) [#/Vol] 160 10*3/uL 150-[address] [facility] Lower GI hemoglobin IA Ql (S tl)Ordered By: Rhea Rao on 11-04-2023 Stool Occult Blood (FANNY) Positive [facility] No Panel InformationOrdered By: Rhea Rao on 11-04-2023 Estimated GFR (MDRD) Amer 77 mL/min >[address] [facility] Comment on above: GFR Calc Estimated GFR (MDRD) Non-Af Amer 64 mL/min >[address] [facility] Comment on above: Non- GFR Calc Nucleated Red Blood Cells % NEEDLEWORKER [facility] Comment on above: Previous reported re sult: 1.2 %Edited by: BETTE on 11/04/23:1406 Troponin I High Sensitivity 11 pg/mL 3.0-78.[address] [facility] Comment on above: Please Note: New Laila t Units and Gender Specific Reference Ranges. For more information see Policy Stat Procedure [place] High Sensitivity Troponin (TNIH) and attachments. RBC Auto (Bld) [#/Vol]Ordere d By: Rhea Rao on 11-04-2023 RBC (Bld) [#/Vol] 1.94 10*6/uL 4.6-6.2 [facility] RBC morphologyOrdered By: Isa Rao on 11-04-2023 RBC morphology finding Nom (Bld) NORM C+C NORMAL NORM C&C [facility] Review by pathologistOrdered By: Rhea Rao on 11-04-2023 Pathologist review Marcos (Unsp spec) [Interp] May foll [facility] Serum or plasma calcium aditya urement (mass/volume)Ordered By: Rhea Rao on 11-04-2023 Calcium [Mass/Vol] 8.7 mg/dL 8.5-10.1 [facility] Serum or plasma creatinine m easurement (mass/volume)Ordered By: Rhea Rao on 11-04-2023 Creatinine [Mass/Vol] 1.17 mg/dL 0.70-1.30 [facility] Comment on above: The validity of the calculated GFR & GFRAA in patients over 70 years has not been determined. Clinical correlation is essential. Serum or plasma urea nitroge n measurement (mass/volume)Ordered By: Rhea Rao on 11-04-2023 Urea nitrogen [Mass/Vol] 22 mg/dL 7-[address] [facility] Thin prep Papanicolaou smear with manual screeningOrdered By: Rhea Rao on 11-04-2023 Thin prep Papanicolaou smear with manual screening 3.2 g/dL 3.2-5.[address] [facility] Thin prep Papanicolaou smear with manual screening 13 U/L 15-[address] [facility] Thin prep Papanicolaou smear with manual screening 5 5-[address] [facility] Total cell countOrdered By: Rhea Rao on 11-04-2023 Cells counted Molgen (Bld/Tiss) [#] [address] [facility] Lower GI hemoglobin IA Ql (S tl)Ordered By: Rick Mccormack on 09-13-2023 Stool Occult Blood (FANNY) Positive [facility] Absolute lymphocyte countOrd ered By: Rick Mccormack on 09-09-2023 Lymphocytes Auto (Unsp spec) [#/Vol] 1.33 10*3/uL 0.83-4.[address] [facility] Comment on above: Previous reported re sult: 0.92 X10^3/uLEdited by: DOM on 09/09/23:1442 AMENDED REPORT 09/09/23 144 Absolute Lymph previously reported as: 0.92 X10^3/uL Automated lymphocyte count a s percentage of total leukocytesOrdered By: Rick Mccormack on 09-09-2023 Lymphocytes/100 WBC Auto (Unsp spec) NEEDLEWORKER [facility] Comment on above: Previous reported re sult: 13.0 %Edited by: DOM on 09/09/23:1441 AMENDED REPORT 09/09/23 1441 LY% previously reported as: 13.0 L % Basophil percentageOrdered B y: Rick Mccormack on 09-09-2023 Basophil percentage NEEDLEWORKER [facility] Comment on above: Previous reported re sult: 56.3 %Edited by: DOM on 09/09/23:1441 AMENDED REPORT 09/09/23 1441 NEUT% previously reported as: 56.3 % Previous reported re sult: 10.4 %Edited by: DOM on 09/09/23:1441 AMENDED REPORT 09/09/23 1441 MONO% previously reported as: 10.4 H % Previous reported re sult: 13.6 %Edited by: DOM on 09/09/23:1442 AMENDED REPORT 09/09/23 1442 EO% previously reported as: 13.6 H % Previous reported re sult: 0.7 %Edited by: DOM on 09/09/23:1442 AMENDED REPORT 09/09/23 144 BASO% previously reported as: 0.7 % Chloride [Moles/Vol] 108 mmol/L 98-107 [facility] Glucose [Mass/Vol] 143 mg/dL 74-106 [facility] Comment on above: Fasting Glucose resu lt greater than or equal to 126 mg/dL suggests DIABETES MELLITUS per A.D.A. criteria. Hemoglobin (Bld) [Mass/Vol] 9.8 g/dL 13.0-16.[address] [facility] Neutrophils (Bld) [#/Vol] 4.5 10*3/uL 2.0-7.[address] [facility] Comment on above: Previous reported re sult: 4.0 X10^3/uLEdited by: DOM on 09/09/23:1442 AMENDED REPORT 09/09/23 1442 Absolute Neut previously reported as: 4.0 X10^3/uL Potassium [Moles/Vol] 4.1 mmol/L 3.5-5.1 [facility] Sodium [Moles/Vol] 140 mmol/L 136-145 [facility] WBC (Bld) [#/Vol] 7.1 10*3/uL 4.4-11.0 [facility] Blood eosinophils/100 leukoc ytesOrdered By: Rick Mccormack on 09-09-2023 Eosinophils/100 WBC (Bld) 10 % 0-[address] [facility] Blood lymphocytes/100 leukoc ytesOrdered By: Rick Mccormack on 09-09-2023 Lymphocytes/100 WBC (Bld) 19 % 19-[address] [facility] Blood metamyelocytes/100 ken kocytesOrdered By: Rick Mccormack on 09-09-2023 Metamyelocytes/100 WBC (Bld) 2 % 0-[address] [facility] Blood monocytes/100 leukocyt esOrdered By: Rick Mccormack on 09-09-2023 Monocytes/100 WBC (Bld) 4 % 0-[address] [facility] Blood platelet adequacy dete ction by light microscopyOrdered By: Rick Mccormack on 09-09-2023 Platelets LM Ql (Bld) ADEQUATE ADEQ [facility] Blood segmented neutrophils/ 100 leukocytesOrdered By: Rick Mccormack on 09-09-2023 Segmented neutrophils/100 WBC (Bld) 64 % 47-[address] [facility] Determination of erythrocyte mean corpuscular volume (MCV)Ordered By: Rick Mccormack on 09-09-2023 MCV (RBC) [Entitic vol] 99.4 fL 80-[address] [facility] Erythrocyte distribution wid th ratioOrdered By: Rick Mccormack on 09-09-2023 Erythrocyte distribution width (RBC) [Ratio] 16.8 % 11.6-14.[address] [facility] Erythrocyte distribution wid th standard deviationOrdered By: Rick Mccormack on 09-09-2023 Erythrocyte distribution width (RBC) [Entitic vol] 61.6 fL 35.1-43.[address] [facility] Hematocrit Auto (Bld) [Volum e fraction]Ordered By: Rick Mccormack on 09-09-2023 Hematocrit (Bld) [Volume fraction] 31.6 % 40-[address] [facility] Immature granulocytes/100 WB C Auto (Bld)Ordered By: Rick Mccormack on 09-09-2023 Immature granulocytes/100 WBC (Bld) NEEDLEWORKER [facility] Comment on above: Previous reported re sult: 6.000 %Edited by: DOM on 09/09/23:1442 AMENDED REPORT 09/09/23 1442 IM GRAN % previously reported as: 6.000 H % IG% - Immature Granulocytes (promyelocytes, myelocytes and metamyelocytes) > 1% indicates that a LEFT SHIFT is Present. Laboratory - Chemistry and C hemistry - challengeOrdered By: Rick Mccormack on 09-09-2023 CO2 [Moles/Vol] 26.0 mmol/L 21.0-32.[address] [facility] Natriuretic peptide B (Bld) [Mass/Vol] 228.6 pg/mL 0-[address] [facility] Urea nitrogen/Creatinine [Mass ratio] 14.3 mg/mg 10-[address] [facility] Laboratory - Hematology and Cell countsOrdered By: Rick Mccormack on 09-09-2023 MCH (RBC) [Entitic mass] 30.8 pg 27.0-32.[address] [facility] MCHC (RBC) [Mass/Vol] 31.0 g/dL 32-36 [facility] Myelocytes/100 WBC (Bld) 1 % 0-[address] [facility] Nucleated RBC/100 WBC (Bld) [Ratio] 0.7 % 0-[address] [facility] Platelet mean volume (Bld) [Entitic vol] 10.8 fL 6.2-12.[address] [facility] Platelets (Bld) [#/Vol] 178 10*3/uL 150-[address] [facility] No Panel InformationOrdered By: Rick Mccormack on 09-09-2023 Estimated GFR (MDRD) Amer 76 mL/min >[address] [facility] Comment on above: GFR Calc Estimated GFR (MDRD) Non-Af Amer 63 mL/min >[address] [facility] Comment on above: Non- GFR Calc RBC Auto (Bld) [#/Vol]Ordere d By: Rick Mccormack on 09-09-2023 RBC (Bld) [#/Vol] 3.18 10*6/uL 4.6-6.2 [facility] RBC morphologyOrdered By: Letty Mccormack on 09-09-2023 RBC morphology finding Nom (Bld) NORM C+C NORMAL NORM C&C [facility] Review by pathologistOrdered By: Rick Mccormack on 09-09-2023 Pathologist review Marcos (Unsp spec) [Interp] Reviewed [facility] Comment on above: Previous reported re sult: Tatum sullivan Edited by: RGOOD on 09/10/23:1607Macrocytic anemia.Clinical correlation necessary.Randell Blanchard M.D. 09/10/23 AMENDED REPORT 09/10/23 1607 PATH REV previously reported as: Tatum sullivan Serum or plasma calcium aditya urement (mass/volume)Ordered By: Rick Mccormack on 09-09-2023 Calcium [Mass/Vol] 8.7 mg/dL 8.5-10.1 [facility] Serum or plasma creatinine m easurement (mass/volume)Ordered By: Rick Mccormack on 09-09-2023 Creatinine [Mass/Vol] 1.19 mg/dL 0.70-1.30 [facility] Comment on above: The validity of the calculated GFR & GFRAA in patients over 70 years has not been determined. Clinical correlation is essential. Serum or plasma urea nitroge n measurement (mass/volume)Ordered By: Rick Mccormack on 09-09-2023 Urea nitrogen [Mass/Vol] 17 mg/dL 7-[address] [facility] Thin prep Papanicolaou smear with manual screeningOrdered By: Rick Mccormack on 09-09-2023 Thin prep Papanicolaou smear with manual screening 6 5-[address] [facility] Total cell countOrdered By: Rick Mccormack on 09-09-2023 Cells counted Molgen (Bld/Tiss) [#] [address] [facility] Basophil percentageOrdered B y: Matthew Dodd on 02-02-2023 Chloride [Moles/Vol] 106 mmol/L 98-107 [facility] Glucose [Mass/Vol] 163 mg/dL 74-106 [facility] Comment on above: Fasting Glucose resu lt greater than or equal to 126 mg/dL suggests DIABETES MELLITUS per A.D.A. criteria. Potassium [Moles/Vol] 4.1 mmol/L 3.5-5.1 [facility] Sodium [Moles/Vol] 138 mmol/L 136-145 [facility] WBC (Bld) [#/Vol] 11.3 10*3/uL 4.4-11.0 [facility] Blood erythrocytes count (nu mber/volume)Ordered By: Matthew Dodd on 02-02-2023 RBC (Bld) [#/Vol] 4.41 10*6/uL 4.6-6.2 [facility] Blood hemoglobin measurement (mass/volume)Ordered By: Matthew Dodd on 02-02-2023 Hemoglobin (Bld) [Mass/Vol] 14.7 g/dL 13.0-16.[address] [facility] Blood platelet mean volumeOr dered By: Matthew Dodd on 02-02-2023 Platelet mean volume (Bld) [Entitic vol] 10.7 fL 6.2-12.[address] [facility] Determination of erythrocyte mean corpuscular volume (MCV)Ordered By: Matthew Dodd on 02-02-2023 MCV (RBC) [Entitic vol] 98.0 fL 80-[address] [facility] Hematocrit Auto (Bld) [Volum e fraction]Ordered By: Matthew Dodd on 02-02-2023 Hematocrit (Bld) [Volume fraction] 43.2 % 40-[address] [facility] Laboratory - Chemistry and C hemistry - challengeOrdered By: Matthew Dodd on 02-02-2023 CO2 [Moles/Vol] 27.0 mmol/L 21.0-32.[address] [facility] Natriuretic peptide B (Bld) [Mass/Vol] 115.4 pg/mL 0-[address] [facility] Urea nitrogen/Creatinine [Mass ratio] 13.9 mg/mg 10-[address] [facility] Laboratory - Hematology and Cell countsOrdered By: Matthew Dodd on 02-02-2023 Erythrocyte distribution width (RBC) [Entitic vol] 53.0 fL 35.1-43.[address] [facility] Erythrocyte distribution width (RBC) [Ratio] 14.6 % 11.6-14.[address] [facility] MCH (RBC) [Entitic mass] 33.3 pg 27.0-32.[address] [facility] MCHC Auto (RBC) [Mass/Vol]Or dered By: Matthew Dodd on 02-02-2023 MCHC (RBC) [Mass/Vol] 34.0 g/dL 32-36 [facility] No Panel InformationOrdered By: Matthew Dodd on 02-02-2023 Estimated GFR (MDRD) Amer 85 mL/min >[address] [facility] Comment on above: GFR Calc Estimated GFR (MDRD) Non-Af Amer 70 mL/min >[address] [facility] Comment on above: Non- GFR Calc Platelets bldOrdered By: Kobe Dodd on 02-02-2023 Platelets (Bld) [#/Vol] 224 10*3/uL 150-[address] [facility] Serum or plasma calcium aditya urement (mass/volume)Ordered By: Matthew Dodd on 02-02-2023 Calcium [Mass/Vol] 8.9 mg/dL 8.5-10.1 [facility] Serum or plasma creatinine m easurement (mass/volume)Ordered By: Matthew Dodd on 02-02-2023 Creatinine [Mass/Vol] 1.08 mg/dL 0.70-1.30 [facility] Comment on above: The validity of the calculated GFR & GFRAA in patients over 70 years has not been determined. Clinical correlation is essential. Serum or plasma urea nitroge n measurement (mass/volume)Ordered By: Matthew Dodd on 02-02-2023 Urea nitrogen [Mass/Vol] 15 mg/dL 7-[address] [facility] Thin prep Papanicolaou smear with manual screeningOrdered By: Matthew Dodd on 02-02-2023 Thin prep Papanicolaou smear with manual screening 5 5-[address] [facility] Basophil percentageon 2021 Chloride [Moles/Vol] 107 mmol/L 98-107 [facility] Work Phone: Glucose [Mass/Vol] 198 mg/dL 74-106 [facility] Work Phone: Comment on above: Fasting Glucose resu lt greater than or equal to 126 mg/dL suggests DIABETES MELLITUS per A.D.A. criteria. Potassium [Moles/Vol] 4.2 mmol/L 3.5-5.1 [facility] Work Phone: Sodium [Moles/Vol] 145 mmol/L 136-145 [facility] Work Phone: Laboratory - Chemistry and C hemistry - challengeon 04-27-2022 CO2 [Moles/Vol] 30.0 mmol/L 21.0-32.[address] [facility] Work Phone: Urea nitrogen/Creatinine [Mass ratio] 13.1 mg/mg 10-[address] [facility] Work Phone: No Panel Informationon 04-27 Estimated GFR (MDRD) Amer 74 mL/min >[address] [facility] Work Phone: Comment on above: GFR Calc Estimated GFR (MDRD) Non-Af Amer 61 mL/min >[address] [facility] Work Phone: Comment on above: Non- GFR Calc Serum or plasma calcium adtiya urement (mass/volume)on 04-27-2022 Calcium [Mass/Vol] 9.2 mg/dL 8.5-10.1 [facility] Work Phone: Serum or plasma creatinine m easurement (mass/volume)on 04-27-2022 Creatinine [Mass/Vol] 1.22 mg/dL 0.70-1.30 [facility] Work Phone: Comment on above: The validity of the calculated GFR & GFRAA in patients over 70 years has not been determined. Clinical correlation is essential. Serum or plasma urea nitroge n measurement (mass/volume)on 04-27-2022 Urea nitrogen [Mass/Vol] 16 mg/dL 7-[address] [facility] Work Phone: Thin prep Papanicolaou smear with manual screeningon 04-27-2022 Thin prep Papanicolaou smear with manual screening 8 5-[address] [facility] Work Phone: Basophil percentageon 2021 Chloride [Moles/Vol] 110 mmol/L 98-107 [facility] Work Phone: Glucose [Mass/Vol] 98 mg/dL 74-106 [facility] Work Phone: Potassium [Moles/Vol] 4.3 mmol/L 3.5-5.1 [facility] Work Phone: Sodium [Moles/Vol] 142 mmol/L 136-145 [facility] Work Phone: Laboratory - Chemistry and C hemistry - challengeon 01-30-2022 CO2 [Moles/Vol] 28.0 mmol/L 21.0-32.[address] [facility] Work Phone: Urea nitrogen/Creatinine [Mass ratio] 15.2 mg/mg 10-[address] [facility] Work Phone: No Panel Informationon 01-30 Estimated Creatinine Clearance Calc 65.53 ml/min [facility] Work Phone: Estimated GFR (MDRD) Amer 88 mL/min >[address] [facility] Work Phone: Comment on above: GFR Calc Estimated GFR (MDRD) Non-Af Amer 73 mL/min >[address] [facility] Work Phone: Comment on above: Non- GFR Calc Serum or plasma calcium aditya urement (mass/volume)on 01-30-2022 Calcium [Mass/Vol] 9.0 mg/dL 8.5-10.1 [facility] Work Phone: Serum or plasma creatinine m easurement (mass/volume)on 01-30-2022 Creatinine [Mass/Vol] 1.05 mg/dL 0.70-1.30 [facility] Work Phone: Comment on above: The validity of the calculated GFR & GFRAA in patients over 70 years has not been determined. Clinical correlation is essential. Serum or plasma urea nitroge n measurement (mass/volume)on 01-30-2022 Urea nitrogen [Mass/Vol] 16 mg/dL 7-[address] [facility] Work Phone: Thin prep Papanicolaou smear with manual screeningon 01-30-2022 Thin prep Papanicolaou smear with manual screening 4 5-[address] [facility] Work Phone: Absolute lymphocyte counton 10-31-2021 Lymphocytes Auto (Unsp spec) [#/Vol] 1.47 10*3/uL 0.83-4.[address] [facility] Work Phone: Basophil percentageon 2021 Basophils/100 WBC (Bld) 1.1 % 0-[address] [facility] Work Phone: Chloride [Moles/Vol] 109 mmol/L 98-107 [facility] Work Phone: Eosinophils/100 WBC (Bld) 6.6 % 0-[address] [facility] Work Phone: Glucose [Mass/Vol] 119 mg/dL 74-106 [facility] Work Phone: Comment on above: Fasting Glucose resu lt from 100 to 125 mg/dL suggests IMPAIRED HOMEOSTASIS per A.D.A. criteria. Neutrophils (Bld) [#/Vol] 3.8 10*3/uL 2.0-7.[address] [facility] Work Phone: Neutrophils/100 WBC (Bld) 57.7 % 47-[address] [facility] Work Phone: Potassium [Moles/Vol] 4.1 mmol/L 3.5-5.1 [facility] [place] [place] Work Phone: Sodium [Moles/Vol] 141 mmol/L 136-145 [facility] [place] [place] Work Phone: WBC (Bld) [#/Vol] 6.7 10*3/uL 4.4-11.0 [facility] Work Phone: Blood erythrocytes count (nu mber/volume)on 10-31-2021 RBC (Bld) [#/Vol] 4.08 10*6/uL 4.6-6.2 [facility] [place] [place] Work Phone: Blood hemoglobin measurement (mass/volume)on 10-31-2021 Hemoglobin (Bld) [Mass/Vol] 13.0 g/dL 13.0-16.[address] [facility] Work Phone: Blood lymphocytes/100 leukoc yteson 10-31-2021 Lymphocytes/100 WBC (Bld) 22.1 % 19-[address] [facility] Work Phone: Blood monocytes/100 leukocyt eson 10-31-2021 Monocytes/100 WBC (Bld) 8.7 % 0-[address] [facility] Work Phone: Blood platelet mean volumeon 10-31-2021 Platelet mean volume (Bld) [Entitic vol] 10.8 fL 6.2-12.[address] [facility] Work Phone: Determination of erythrocyte mean corpuscular volume (MCV)on 10-31-2021 MCV (RBC) [Entitic vol] 97.5 fL 80-[address] [facility] Work Phone: Hematocrit Auto (Bld) [Volum e fraction]on 10-31-2021 Hematocrit (Bld) [Volume fraction] 39.8 % 40-[address] [facility] Work Phone: Laboratory - Chemistry and C hemistry - challengeon 10-31-2021 CO2 [Moles/Vol] 29.0 mmol/L 21.0-32.[address] [facility] Work Phone: Free T4 [Mass/Vol] 1.01 ng/dL 0.76-1.46 [facility] Work Phone: Urea nitrogen/Creatinine [Mass ratio] 14.5 mg/mg 10-[address] [facility] Work Phone: Laboratory - Hematology and Cell countson 10-31-2021 Erythrocyte distribution width (RBC) [Entitic vol] 52.8 fL 35.1-43.[address] [facility] Work Phone: Erythrocyte distribution width (RBC) [Ratio] 14.7 % 11.6-14.[address] [facility] Work Phone: Immature granulocytes/100 WBC (Bld) 3.800 % 0.0-0.[address] [facility] Work Phone: Comment on above: IG% - Immature Granu locytes (promyelocytes, myelocytes and metamyelocytes) > 1% indicates that a LEFT SHIFT is Present. MCH (RBC) [Entitic mass] 31.9 pg 27.0-32.[address] [facility] Work Phone: Nucleated RBC/100 WBC (Bld) [Ratio] 0 % 0-[address] [facility] Work Phone: MCHC Auto (RBC) [Mass/Vol]on 10-31-2021 MCHC (RBC) [Mass/Vol] 32.7 g/dL 32-36 [facility] Work Phone: No Panel Informationon 10-31 Estimated GFR (MDRD) Amer 78 mL/min >[address] [facility] Work Phone: Comment on above: GFR Calc Estimated GFR (MDRD) Non-Af Amer 64 mL/min >[address] [facility] Work Phone: Comment on above: Non- GFR Calc Thyroid Stimulating Hormone (TSH) 1.68 uIU/mL 0.358-3.[address] [facility] Work Phone: Platelets bldon 10-31-2021 Platelets (Bld) [#/Vol] 161 10*3/uL 150-[address] [facility] Work Phone: Serum or plasma calcium aditya urement (mass/volume)on 10-31-2021 Calcium [Mass/Vol] 8.7 mg/dL 8.5-10.1 [facility] Work Phone: Serum or plasma creatinine m easurement (mass/volume)on 10-31-2021 Creatinine [Mass/Vol] 1.17 mg/dL 0.70-1.30 [facility] Work Phone: Comment on above: The validity of the calculated GFR & GFRAA in patients over 70 years has not been determined. Clinical correlation is essential. Serum or plasma urea nitroge n measurement (mass/volume)on 10-31-2021 Urea nitrogen [Mass/Vol] 17 mg/dL 7-[address] [facility] Work Phone: Thin prep Papanicolaou smear with manual screeningon 10-31-2021 Thin prep Papanicolaou smear with manual screening 3 5-[address] [facility] Work Phone: HEPATIC FUNCTION PANELon Albumin [Mass/Vol] 4.3 g/dL Normal 3.4 - 5.0 [facility] Comment on above: Performed By: #### H EPFP #### [address] [id number] ALP [Catalytic activity/Vol] 52 U/L Normal 33 - 136 [facility] Comment on above: Performed By: #### H EPFP #### [address] [address] ALT [Catalytic activity/Vol] 22 U/L Normal 10 - 52 [facility] Comment on above: Result Comment: Shantell ents treated with Sulfasalazine may generate falsely decreased results for ALT. Performed By: #### H EPFP #### [address] [address] AST [Catalytic activity/Vol] 15 U/L Normal 9 - 39 [facility] Comment on above: Performed By: #### H EPFP #### [address] [address] Bilirubin [Mass/Vol] 0.7 mg/dL Normal 0.0 - 1.2 [facility] Comment on above: Performed By: #### H EPFP #### [address] [address] Bilirubin.direct [Mass/Vol] 0.1 mg/dL Normal 0.0 - 0.3 [facility] Comment on above: Performed By: #### H EPFP #### [address] [address] Protein [Mass/Vol] 6.4 g/dL Normal 6.4 - 8.2 [facility] Comment on above: Performed By: #### H EPFP #### [place] [id number] CBC AND DIFFERENTIALon 02-28 Basophils (Bld) [#/Vol] 0.00 10*3/uL Normal 0.00 - 0.10 [facility] Comment on above: Performed By: #### C BCDF #### [place] [id number] Basophils/100 WBC (Bld) 0.5 % Normal 0.0 - 2.0 [facility] Comment on above: Performed By: #### C BCDF #### [address] [address] Eosinophils (Bld) [#/Vol] 0.60 10*3/uL High 0.00 - 0.40 [facility] Comment on above: Performed By: #### C BCDF #### [place] [id number] Eosinophils/100 WBC (Bld) 10.1 % Normal 0.0 - 6.0 [facility] Comment on above: Performed By: #### C BCDF #### [address] [address] Erythrocyte distribution width (RBC) [Ratio] 15.4 % High 11.5 - 14.5 [facility] Comment on above: Performed By: #### C BCDF #### [address] [address] Hematocrit (Bld) [Volume fraction] 48.7 % Normal 41.0 - 52.0 [facility] Comment on above: Performed By: #### C BCDF #### [address] [address] Hemoglobin (Bld) [Mass/Vol] 16.3 g/dL Normal 13.5 - 17.5 [facility] Comment on above: Performed By: #### C BCDF #### [address] [address] Lymphocytes (Bld) [#/Vol] 1.30 10*3/uL Normal 0.80 - 3.00 [facility] Comment on above: Performed By: #### C BCDF #### [address] [address] Lymphocytes/100 WBC (Bld) 21.9 % Normal 13.0 - 44.0 [facility] Comment on above: Performed By: #### C BCDF #### [address] [address] MCHC (RBC) [Mass/Vol] 33.5 g/dL Normal 32.0 - 36.0 [facility] Comment on above: Performed By: #### C BCDF #### [address] [address] MCV (RBC) [Entitic vol] 99 fL Normal 80 - 100 [facility] Comment on above: Performed By: #### C BCDF #### [address] [address] Monocytes (Bld) [#/Vol] 0.50 10*3/uL Normal 0.05 - 0.80 [facility] Comment on above: Performed By: #### C BCDF #### [address] [address] Monocytes/100 WBC (Bld) 8.0 % Normal 2.0 - 10.0 [facility] Comment on above: Performed By: #### C BCDF #### [address] [address] Neutrophils (Bld) [#/Vol] 3.60 10*3/uL Normal 1.60 - 5.50 [facility] Comment on above: Result Comment: Perc ent differential counts (%) should be interpreted in the context of the absolute cell counts (cells/L). Performed By: #### C BCDF #### [address] [address] Neutrophils/100 WBC (Bld) 59.5 % Normal 40.0 - 80.0 [facility] Comment on above: Performed By: #### C BCDF #### [address] [address] Nucleated RBC/100 WBC (Bld) [Ratio] 0.1 /100 WBC Normal [facility] Comment on above: Performed By: #### C BCDF #### [address] [address] Platelets (Bld) [#/Vol] 157 10*3/uL Normal 150 - 450 [facility] Comment on above: Performed By: #### C BCDF #### [address] [address] RBC (Bld) [#/Vol] 4.93 x10E12/L Normal 4.50 - 5.90 [facility] Comment on above: Performed By: #### C BCDF #### [address] [address] WBC (Bld) [#/Vol] 6.0 10*3/uL Normal 4.4 - 11.3 [facility] Comment on above: Performed By: #### C BCDF #### [address] [address] COMPREHENSIVE PANELon 2019 Albumin [Mass/Vol] 4.4 g/dL Normal 3.4 - 5.0 [facility] Comment on above: Performed By: #### C MP #### [address] [address] ALP [Catalytic activity/Vol] 51 U/L Normal 33 - 136 [facility] Comment on above: Performed By: #### C MP #### [address] [address] ALT [Catalytic activity/Vol] 21 U/L Normal 10 - 52 [facility] Comment on above: Result Comment: Shantell ents treated with Sulfasalazine may generate falsely decreased results for ALT. Performed By: #### C MP #### [address] [address] Anion gap [Moles/Vol] 10 mmol/L Normal 10 - 20 [facility] Comment on above: Performed By: #### C MP #### [address] [address] AST [Catalytic activity/Vol] 18 U/L Normal 9 - 39 [facility] Comment on above: Performed By: #### C MP #### [address] [address] Bilirubin [Mass/Vol] 0.7 mg/dL Normal 0.0 - 1.2 [facility] Comment on above: Performed By: #### C MP #### [address] [address] Calcium [Mass/Vol] 9.3 mg/dL Normal 8.6 - 10.3 [facility] Comment on above: Performed By: #### C MP #### [address] [address] Chloride [Moles/Vol] 109 mmol/L High 98 - 107 [facility] Comment on above: Performed By: #### C MP #### [address] [address] Creatinine [Mass/Vol] 0.92 mg/dL Normal 0.50 - 1.30 [facility] Comment on above: Performed By: #### C MP #### [address] [address] GFR- AM. >60 Normal >60 [facility] Comment on above: Result Comment: CALC ULATIONS OF ESTIMATED GFR ARE PERFORMED USING THE MDRD STUDY EQUATION FOR THE IDMS-TRACEABLE CREATININE METHODS. CLIN CHEM 2007;53:766-72 Performed By: #### C MP #### [address] [address] GFR-NON AM. >60 Normal >60 [facility] Comment on above: Performed By: #### C MP #### [address] [address] Glucose [Mass/Vol] 118 mg/dL High 74 - 99 [facility] Comment on above: Performed By: #### C MP #### [address] [address] HCO3 (Bld) [Moles/Vol] 28 mmol/L Normal 21 - 32 [facility] Comment on above: Performed By: #### C MP #### [address] [address] Potassium [Moles/Vol] 4.1 mmol/L Normal 3.5 - 5.3 [facility] Comment on above: Performed By: #### C MP #### [address] [address] Protein [Mass/Vol] 6.5 g/dL Normal 6.4 - 8.2 [facility] Comment on above: Performed By: #### C MP #### [address] [address] Sodium [Moles/Vol] 143 mmol/L Normal 136 - 145 [facility] Comment on above: Performed By: #### C MP #### [address] [address] Urea nitrogen [Mass/Vol] 14 mg/dL Normal 6 - 23 [facility] Comment on above: Performed By: #### C MP #### [address] [address] HEMOGLOBIN A1Con 02-29-2020 HbA1c (Bld) [Mass fraction] 128 MG/DL Normal [facility] Comment on above: Performed By: #### H BA1E #### [address] [address] HbA1c (Bld) [Mass fraction] 6.1 % Normal [facility] Comment on above: Result Comment: Diag nosis of Diabetes-Adults Non-Diabetic: < or = 5.6% Increased risk for developing diabetes: 5.7-6.4% Diagnostic of diabetes: > or = 6.5% . Monitoring of Diabetes Age (y) Therapeutic Goal (%) Adults: >18 <7.0 Pediatrics: 13-18 <7.5 7-12 <8.0 0- 6 7.5-8.5 [employer] [employer]. Diabetes Care 33(S1), Jun 2009. Performed By: #### H BA1E #### [address] [address] LIPID PANEL (CORONARY RISK 2 )on 02-29-2020 Cholesterol [Mass/Vol] 169 mg/dL Normal 0 - 199 [facility] Comment on above: Result Comment: . AGE DESIRABLE BORDERLINE HIGH HIGH 0-19 Y 0 - 169 170 - 199 >/= 200 20-24 Y 0 - 189 190 - 224 >/= 225 >24 Y 0 - 199 200 - 239 >/= 240 All ranges are based on fasting samples. Specific therapeutic targets will vary based on patient-specific cardiac risk. . Pediatric guidelines reference:Pediatrics 2011, 128(S5). Adult guidelines reference: NCEP ATPIII Guidelines, ALLAN 2001, 258:2486-97 . Venipuncture immediately after or during the administration of Metamizole may lead to falsely low results. Testing should be performed immediately prior to Metamizole dosing. Performed By: #### L IPID #### [address] [address] Cholesterol in HDL [Mass/Vol] 44.0 mg/dL Normal [facility] Comment on above: Result Comment: . AGE VERY LOW LOW NORMAL HIGH 0-19 Y < 35 < 40 40-45 ---- 20-24 Y ---- < 40 >45 ---- >24 Y ---- < 40 40-60 >60 . Performed By: #### L IPID #### [address] [address] Cholesterol in LDL [Mass/Vol] 103 mg/dL High 0 - 99 [facility] Comment on above: Result Comment: . NEAR BORD AGE DESIRABLE OPTIMAL HIGH HIGH VERY HIGH 0-19 Y 0 - 109 --- 110-129 >/= 130 ---- 20-24 Y 0 - 119 --- 120-159 >/= 160 ---- >24 Y 0 - 99 100-129 130-159 160-189 >/=190 . Performed By: #### L IPID #### [place] [id number] Cholesterol in VLDL [Mass/Vol] 22 mg/dL Normal 0 - 40 [facility] Comment on above: Performed By: #### L IPID #### [place] [id number] Cholesterol.total/Chol esterol in HDL [Mass ratio] 3.8 {ratio} Normal [facility] Comment on above: Result Comment: REF VALUES DESIRABLE < 3.4 HIGH RISK > 5.0 Performed By: #### L IPID #### [place] [address] Triglyceride [Mass/Vol] 110 mg/dL Normal 0 - 149 [facility] Comment on above: Result Comment: . AGE DESIRABLE BORDERLINE HIGH HIGH VERY HIGH 0 D-90 D 19 - 174 ---- ---- ---- 91 D- 9 Y 0 - 74 75 - 99 >/= 100 ---- 10-19 Y 0 - 89 90 - 129 >/= 130 ---- 20-24 Y 0 - 114 115 - 149 >/= 150 ---- >24 Y 0 - 149 150 - 199 200- 499 >/= 500 . Venipuncture immediately after or during the administration of Metamizole may lead to falsely low results. Testing should be performed immediately prior to Metamizole dosing. Performed By: #### L IPID #### [place] [address] .Manual Abson 02-24-2019 Segs Abs Man 4.69 10x3/ Normal 1.4-6.5 [facility] Comment on above: Order Comment: Order Added by Discern Expert. Performed By: #### 3 [id number] #### CY Adhikari [address] [place], [place] [id number] Basophil Abs Man 0.0 10x3/ Normal 0.0-0.2 [facility] Comment on above: Order Comment: Order Added by Discern Expert. Performed By: #### 3 [id number] #### CY DiazHemo [address] [place] [address] Eos Abs Man 0.3 10x3/ Normal 0.0-0.5 [facility] Comment on above: Order Comment: Order Added by Discern Expert. Performed By: #### 3 [id number] #### CY DiazHemo [address] [place] [address] Lymph Abs Man 1.3 10x3/ Normal 1.2-3.4 [facility] Comment on above: Order Comment: Order Added by Discern Expert. Performed By: #### 3 [id number] #### CY RemHemo [address] [place] [address] Hockley Abs Man 0.3 10x3/ Normal 0.0-0.7 [facility] Comment on above: Order Comment: Order Added by Discern Expert. Performed By: #### 3 [id number] #### CY DiazHemo [address] [place] [address] CBC w/ Auto Diffon 9 Erythrocyte distribution width (RBC) [Ratio] 14.7 % High 11.5-14.5 [facility] Comment on above: Performed By: #### 2 [id number] #### CY DiazHemo [address] [place] [address] Hematocrit (Bld) [Volume fraction] 48.5 % Normal 42.0-52.0 [facility] Comment on above: Performed By: #### 2 [id number] #### CY DiazHemo [address] [place] [address] Hemoglobin (Bld) [Mass/Vol] 16.4 g/dL Normal 13.5-18.0 [facility] Comment on above: Performed By: #### 2 [id number] #### CY RemHemo [address] [place] [address] MCH (RBC) [Entitic mass] 32.8 pg High 27.0-31.0 [facility] Comment on above: Performed By: #### 2 [id number] #### CY RemHemo [address] [place] [address] MCHC (RBC) [Mass/Vol] 33.8 g/dL Normal 33.0-37.0 [facility] Comment on above: Performed By: #### 2 [id number] #### CY RemHemo [address] [place] [address] MCV (RBC) [Entitic vol] 97.2 fL Normal 78.0-100.0 [facility] Comment on above: Performed By: #### 2 [id number] #### CY RemHemo [address] [place] [address] Platelet mean volume (Bld) [Entitic vol] 10.0 fL Normal 7.4-11.0 [facility] Comment on above: Performed By: #### 2 [id number] #### CY RemHemo [facility] [place] [address] Platelets (Bld) [#/Vol] 157 E3/mcL Normal 130-400 [facility] Comment on above: Performed By: #### 2 [id number] #### CY RemHemo [address] [place] [address] RBC (Bld) [#/Vol] 4.99 E6/mcL Normal 3.90-6.10 [facility] Comment on above: Performed By: #### 2 706365 #### CY RemHemo [address] [place] [address] WBC (Bld) [#/Vol] 6.7 E3/mcL Normal 3.6-11.0 [facility] Comment on above: Performed By: #### 2 [id number] #### CY RemHemo [address] [place] [address] CMPon 02-24-2019 Albumin [Mass/Vol] 4.2 g/dL Normal 3.4-5.0 [facility] Comment on above: Performed By: #### 2 [id number] #### CY [employer] [address] [place] [address] Albumin/Globulin [Mass ratio] 2.1 {ratio} High 1.1-1.9 [facility] Comment on above: Performed By: #### 2 [id number] #### CY [employer] [address] [place] [address] Alk Phos 48 Int._Unit/L Normal 33-136 [facility] Comment on above: Performed By: #### 2 [id number] #### CY [employer] [address] [place] [address] ALT [Catalytic activity/Vol] 22 Int._Unit/L Normal 10-52 [facility] Comment on above: Performed By: #### 2 [id number] #### CY [employer] [address] [place] [address] Anion gap [Moles/Vol] 10 mmol/L Normal 10-20 [facility] Comment on above: Performed By: #### 2 [id number] #### [facility] [employer] [address] [place] [address] AST [Catalytic activity/Vol] 18 Int._Unit/L Normal 9-39 [facility] Comment on above: Performed By: #### 2 [id number] #### [facility] [employer] [address] [place] [address] Bili Total 0.82 mg/dL Normal 0.00-1.20 [facility] Comment on above: Performed By: #### 2 726745 #### [facility] [employer] [address] [place] [address] Calcium [Mass/Vol] 9.1 mg/dL Normal 8.6-10.3 [facility] Comment on above: Performed By: #### 2 [id number] #### [facility] [employer] [address] [place] [address] Chloride [Moles/Vol] 110 mmol/L High 98-[address] [facility] Comment on above: Performed By: #### 2 240106 #### [facility] [employer] [address] [place] [address] CO2 [Moles/Vol] 25.0 mmol/L Normal 21.0-32.0 [facility] Comment on above: Performed By: #### 2 826860 #### [facility] [employer] [address] [place] [address] Creatinine [Mass/Vol] 0.8 mg/dL Normal 0.5-1.3 [facility] Comment on above: Performed By: #### 2 072762 #### CY [employer] [address] [place] [address] Globulin (S) [Mass/Vol] 2.0 g/dL Normal 2.0-4.0 [facility] Comment on above: Performed By: #### 2 [id number] #### CY [employer] [address] [place] [address] Glucose [Mass/Vol] 122 mg/dL High 70-99 [facility] Comment on above: Performed By: #### 2 184911 #### CY [employer] [address] [place] [address] Potassium [Moles/Vol] 3.8 mmol/L Normal 3.5-5.3 [facility] Comment on above: Performed By: #### 2 836778 #### CY [employer] [address] [place] [address] Protein [Mass/Vol] 6.2 g/dL Low 6.4-8.2 [facility] Comment on above: Performed By: #### 2 [id number] #### CY [employer] [address] [place] [address] Sodium [Moles/Vol] 141 mmol/L Normal 136-145 [facility] Comment on above: Performed By: #### 2 002048 #### CY [employer] [address] [place] [address] Urea nitrogen [Mass/Vol] 14 mg/dL Normal 6-23 [facility] Comment on above: Performed By: #### 2 [id number] #### CY [employer] [address] [place] [address] Urea nitrogen/Creatinine [Mass ratio] 17.5 ratio Normal 5.4-30.0 [facility] Comment on above: Performed By: #### 2 073753 #### CY [employer] [address] [place] [address] Lipid Profileon 02-24-2019 Cholesterol [Mass/Vol] 159 mg/dL Normal 0-199 [facility] Comment on above: Result Comment: TOTA L CHOLEESTEROL: <200 NORMAL 200 - 239 BORDERLINE HIGH >240 HIGH Performed By: #### 3 [id number] #### CY [employer] [address] [place] [address] Cholesterol in HDL [Mass/Vol] 52 mg/dL Normal 40-60 [facility] Comment on above: Performed By: #### 3 [id number] #### CY [employer] [address] [place] [address] Cholesterol in LDL [Mass/Vol] 76 mg/dL Normal 0-130 [facility] Comment on above: Result Comment: <100 OPTIMAL 100-129 NEAR / ABOVE OPTIMAL 130-159 BORDERLINE HIGH 160-189 HIGH >190 VERY HIGH CALC LDL NOT VALID WHEN TRIGLYCERIDE IS >400 MG/DL Performed By: #### 3 [id number] #### CY [employer] [facility] [place] [address] Cholesterol in VLDL [Mass/Vol] 31 mg/dL Normal 0-40 [facility] Comment on above: Performed By: #### 3 [id number] #### CY [employer] [facility] [place] [address] Triglyceride [Mass/Vol] 156 mg/dL High 0-149 [facility] Comment on above: Result Comment: AGE DESIRABLE BORDERLINE HIGH 91 D - 9 Y 0 - 74 75 - 99 > 100 10 - 19 Y 0 - 89 90 - 129 > 130 20 -24 Y 0 - 114 115 - 149 > 150 > 25 0 - 149 150 - 199 200 - 499 Performed By: #### 3 [id number] #### CY [employer] [address] [place] [address] Manual Diffon 02-24-2019 Basophil Man 0 % Normal 0-1 [facility] Comment on above: Order Comment: Order Added by Discern Expert. Performed By: #### 2 [id number] #### CY RemHemo [address] [place] [address] Eosinophils/100 WBC (Bld) 5 % Normal 0-5 [facility] Comment on above: Order Comment: Order Added by Discern Expert. Performed By: #### 2 420181 #### CY RemHemo [address] [place] [address] Lymphocytes/100 WBC (Bld) 20 % Normal 14-48 [facility] Comment on above: Order Comment: Order Added by Discern Expert. Performed By: #### 2 960786 #### CY RemHemo [address] [place] [address] Monocyte Man 5 % Normal 1-11 [facility] Comment on above: Order Comment: Order Added by Discern Expert. Performed By: #### 2 079142 #### CY RemHemo [address] [place] 9486205 RBC morphology finding Nom (Bld) NORMAL Normal [facility] Comment on above: Order Comment: Order Added by Discern Expert. Performed By: #### 2 [id number] #### CY RemHemo [address] [place] 9486205 Segs Man 70 % Normal 37-75 [facility] Comment on above: Order Comment: Order Added by Discern Expert. Performed By: #### 2 140885 #### CY RemHemo [address] [place] [address]486205 eGFRon 02-24-2019 GFR/1.73 sq M predicted among non-blacks MDRD (S/P/Bld) [Vol rate/Area] mL/min/{1.73_m2} Normal [facility] Comment on above: Order Comment: Order added by Discern Expert. Performed By: #### 1 [id number] #### CY [employer] [address] [place] [address] zzplt morphon 02-24-2019 Platelet morphology finding Nom (Bld) NORMAL Normal [facility] Comment on above: Performed By: #### 9 [id number] #### CY RemHemo [facility] [place] [address]486205 Platelets (Bld) [#/Vol] NORMAL Normal [facility] Comment on above: Performed By: #### 9 [id number] #### CY RemHemo [address] [place] [address]486205 Blood Glucose , Office ([phone])Ordered By: Erin Mccracken on 05-20-2015 Glucose Glucometer (BldC) [Moles/Vol] 175 1 Normal [facility] Work Phone: HgA1C , Office ([phone])Ordere d By: Erin Mccracken on 05-20-2015 HbA1c (Bld) [Mass fraction] 6.0 % Normal 4.6 - 7.1 [facility] Work Phone: OCCULT BLOOD FECES SCREEN ([phone])on 01-18-2015 Hemoglobin.gastrointes tinal Ql (Stl) negitive Normal [facility] Work Phone: HgA1C , Office ([phone])on HbA1c (Bld) [Mass fraction] 6.1 % Normal 4.6 - 7.1 [facility] Work Phone: CBC WITH MANUAL DIFF ([phone]) Ordered By: Software Release Manager on 04-07-2013 Basophils (Bld) [#/Vol] 0.0 {x10E3/uL} Normal 0.0-0.2 [facility] Work Phone: Comment on above: PATIENT WAS FASTINGP ERFORMED BY: [place] [id number] [facility] [id number] Information: [id number] Basophils/100 WBC (Bld) 0 % Normal 0-3 [facility] Work Phone: Comment on above: PATIENT WAS FASTINGP ERFORMED BY: Lab[address] [id number] Information: [id number] Eosinophils (Bld) [#/Vol] 0.4 {x10E3/uL} Normal 0.0-0.4 [facility] Work Phone: Comment on above: PATIENT WAS FASTINGP ERFORMED BY: [facility]6370 [facility] [id number] Information: [id number] Eosinophils/100 WBC (Bld) 6 % Abnormal 0-5 [facility] Work Phone: Comment on above: PATIENT WAS FASTINGP ERFORMED BY: [place] [id number] [facility] [id number] Information: [id number] Erythrocyte distribution width (RBC) [Ratio] 13.8 % Normal 12.3-15.4 [facility] Work Phone: Comment on above: PATIENT WAS FASTINGP ERFORMED BY: [facility]6370 [facility] [id number] Information: [id number] Hematocrit (Bld) [Volume fraction] 48.4 % Normal 37.5-51.0 [facility] Work Phone: Comment on above: PATIENT WAS FASTINGP ERFORMED BY: [place] [id number] [facility] [id number] Information: [id number] Hemoglobin (Bld) [Mass/Vol] 16.6 g/dL Normal 12.6-17.7 [facility] Work Phone: Comment on above: PATIENT WAS FASTINGP ERFORMED BY: [address] [id number] Information: [id number] Immature granulocytes (Bld) [#/Vol] 0.0 {x10E3/uL} Normal 0.0-0.1 [facility] Work Phone: Comment on above: PATIENT WAS FASTINGP ERFORMED BY: [address] [id number] Information: [id number] Immature granulocytes/100 WBC (Bld) 0 % Normal 0-2 [facility] Work Phone: Comment on above: PATIENT WAS FASTINGP ERFORMED BY: [address] [id number] Information: [id number] Lymphocytes (Bld) [#/Vol] 1.9 {x10E3/uL} Normal 0.7-3.1 [facility] Work Phone: Comment on above: PATIENT WAS FASTINGP ERFORMED BY: [address] [id number] Information: [id number] Lymphocytes/100 WBC (Bld) 28 % Normal 14-46 [facility] Work Phone: Comment on above: PATIENT WAS FASTINGP ERFORMED BY: [address] [id number] Information: [id number] MCH (RBC) [Entitic mass] 32.0 pg Normal 26.6-33.0 [facility] Work Phone: Comment on above: PATIENT WAS FASTINGP ERFORMED BY: [place] 1858370 [facility] [id number] Information: [id number] MCHC (RBC) [Mass/Vol] 34.3 g/dL Normal 31.5-35.7 [facility] Work Phone: Comment on above: PATIENT WAS FASTINGP ERFORMED BY: [address] [id number] Information: [id number] MCV (RBC) [Entitic vol] 93 fL Normal 79-97 [facility] Work Phone: Comment on above: PATIENT WAS FASTINGP ERFORMED BY: [address] [id number] Information: [id number] Monocytes (Bld) [#/Vol] 0.5 {x10E3/uL} Normal 0.1-0.9 [facility] Work Phone: Comment on above: PATIENT WAS FASTINGP ERFORMED BY: [address] [id number] Information: [id number] Monocytes/100 WBC (Bld) 7 % Normal 4-12 [facility] Work Phone: Comment on above: PATIENT WAS FASTINGP ERFORMED BY: [address] [id number] Information: [id number] Neutrophils (Bld) [#/Vol] 3.9 {x10E3/uL} Normal 1.4-7.0 [facility] Work Phone: Comment on above: PATIENT WAS FASTINGP ERFORMED BY: [place] 1858370 [facility] [id number] Information: [id number] Neutrophils/100 WBC (Bld) 59 % Normal 40-74 [facility] Work Phone: Comment on above: PATIENT WAS FASTINGP ERFORMED BY: L[facility] [id number] [place] [facility] [place] [id number] Information: [id number] Platelets (Bld) [#/Vol] 228 {x10E3/uL} Normal 155-379 [facility] Work Phone: Comment on above: PATIENT WAS FASTINGP ERFORMED BY: CB [facility] Cmtttm3730 [place] [facility] [place] [id number] Information: [id number] RBC (Bld) [#/Vol] 5.19 {x10E6/uL} Normal 4.14-5.80 [facility] Work Phone: Comment on above: PATIENT WAS FASTINGP ERFORMED BY: LARON [facility] [id number] [place] [facility] [place] [id number] Information: [id number] WBC (Bld) [#/Vol] 6.7 {x10E3/uL} Normal 3.4-10.8 [facility] Internal Medicine Work Phone: Comment on above: PATIENT WAS FASTINGP ERFORMED BY: LARON [facility] Qnfxgn65[address] [facility] [place] [id number] Information: [id number] LIPID PANEL ([id number])Ordered B y: Software Release Manager on 04-07-2013 Cholesterol [Mass/Vol] 199 mg/dL Normal 100-199 [facility] Internal Medicine Work Phone: Comment on above: PATIENT WAS FASTINGP ERFORMED BY: CB [facility] Veytbo9781 [facility]in [place] [id number] Cholesterol in HDL [Mass/Vol] 57 mg/dL Normal [facility] Internal Medicine Work Phone: Comment on above: According to ATP-III Guidelines, HDL-C >59 mg/dL is considered anegative risk factor for CHD. PATIENT WAS FASTINGP ERFORMED BY: CB [facility] Swrdfx0974 [facility] [place] [id number] Cholesterol in LDL [Mass/Vol] 111 mg/dL Abnormal 0-99 [facility] Work Phone: Comment on above: PATIENT WAS FASTINGP ERFORMED BY: LARON [facility] Hynjzy4875 Leon RoadDublin [place] [id number] Cholesterol in LDL/Cholesterol in HDL [Mass ratio] 1.9 {ratio_units} Normal 0.0-3.6 [facility] Work Phone: Comment on above: PATIENT WAS FASTINGP ERFORMED BY: LARON [facility] Hcwstl0626 Leon RoadDublin [place] [id number] Cholesterol in VLDL [Mass/Vol] 31 mg/dL Normal 5-40 [facility] Work Phone: Comment on above: PATIENT WAS FASTINGP ERFORMED BY: LARON LabCodarlene Mprawh6698 Leon RoadDublin [place] [id number] Triglyceride [Mass/Vol] 154 mg/dL Abnormal 0-149 [facility] Work Phone: Comment on above: PATIENT WAS FASTINGP ERFORMED BY: LARON [facility] Wbgaot0365 Leon RoadDublin [place] [id number] METABOLIC PANEL, COMPREHENSI VE ([id number])Ordered By: Software Release Manager on 04-07-2013 Albumin [Mass/Vol] 4.7 g/dL Normal 3.6-4.8 [facility] Internal Medicine Work Phone: Comment on above: PATIENT WAS FASTINGP ERFORMED BY: LARON [facility] Dnfazo0665 Leon RoadDublin [place] [id number] Albumin/Globulin [Mass ratio] 2.0 {ratio} Normal 1.1-2.5 [facility] Work Phone: Comment on above: PATIENT WAS FASTINGP ERFORMED BY: LARON [facility] Ewctlz5754 Leon RoadDublin [place] [id number] ALP [Catalytic activity/Vol] 59 [iU]/L Normal 44-103 [facility] Work Phone: Comment on above: PATIENT WAS FASTINGP ERFORMED BY: LARON [facility] Swmslf4965 Leon RoadDublin [place] [id number] ALT [Catalytic activity/Vol] 30 [iU]/L Normal 0-44 [facility] Work Phone: Comment on above: PATIENT WAS FASTINGP ERFORMED BY: [facility] Shngsj8971 Leon RoadDublin [place] [id number] AST [Catalytic activity/Vol] 25 [iU]/L Normal 0-40 [facility] Work Phone: Comment on above: PATIENT WAS FASTINGP ERFORMED BY: [facility] Getqde8270 [address] Roadblin [place] [id number] Bilirubin [Mass/Vol] 0.8 mg/dL Normal 0.0-1.2 [facility] Work Phone: Comment on above: PATIENT WAS FASTINGP ERFORMED BY: [facility] Nogaor5660 Leon RoadNovant Health Mint [facility] Medical Centerin [place] [id number] Calcium [Mass/Vol] 9.9 mg/dL Normal 8.6-10.2 [facility] Internal Medicine Work Phone: Comment on above: PATIENT WAS FASTINGP ERFORMED BY: [facility] Sahajd3592 [facility]in [place] [id number] Chloride [Moles/Vol] 103 mmol/L Normal 97-108 [facility] Work Phone: Comment on above: PATIENT WAS FASTINGP ERFORMED BY: [facility] Xbffcd7274 [facility]in [place] [id number] CO2 [Moles/Vol] 24 mmol/L Normal 19-28 [facility] Internal Medicine Work Phone: Comment on above: PATIENT WAS FASTINGP ERFORMED BY: [facility] Vvrwmc8243 Leon RoadNovant Health Mint [facility] Medical Centerin [place] [id number] Creatinine [Mass/Vol] 1.07 mg/dL Normal 0.76-1.27 [facility] Internal [facility] Work Phone: Comment on above: PATIENT WAS FASTINGP ERFORMED BY: [facility] Bnwdbl1510 [facility] [place] [id number] GFR/1.73 sq M predicted among blacks CKD-EPI (S/P/Bld) [Vol rate/Area] 81 mL/min/1.73 Normal [facility] Internal Medicine Work Phone: Comment on above: PATIENT WAS FASTINGP ERFORMED BY: [facility] Qgmujl1613 [address] RoadDublin [place] [id number] GFR/1.73 sq M predicted among non-blacks CKD-EPI (S/P/Bld) [Vol rate/Area] 70 mL/min/1.73 Normal [facility] Internal Medicine Work Phone: Comment on above: PATIENT WAS FASTINGP ERFORMED BY: [facility] Bgpvkc3880 [address] RoadDublin [place] [id number] Globulin (S) [Mass/Vol] 2.3 g/dL Normal 1.5-4.5 [facility] Internal Medicine Work Phone: Comment on above: PATIENT WAS FASTINGP ERFORMED BY: [facility] Nlsjvd7251 [address] RoadDublin [place] [id number] Glucose [Mass/Vol] 88 mg/dL Normal 65-99 [facility] Internal Medicine Work Phone: Comment on above: PATIENT WAS FASTINGP ERFORMED BY: [facility] Sdmhfp1148 [address] RoadDublin [place] [id number] Potassium [Moles/Vol] 4.3 mmol/L Normal 3.5-5.2 [facility] Internal Medicine Work Phone: Comment on above: PATIENT WAS FASTINGP ERFORMED BY: [facility] Ifmrjy7229 [address] RoadDublin [place] [id number] Protein [Mass/Vol] 7.0 g/dL Normal 6.0-8.5 [facility] Internal Medicine Work Phone: Comment on above: PATIENT WAS FASTINGP ERFORMED BY: [facility] Rprzbh7898 [address] RoadDublin [place] [id number] Sodium [Moles/Vol] 141 mmol/L Normal 134-144 [facility] Internal Medicine Work Phone: Comment on above: PATIENT WAS FASTINGP ERFORMED BY: [facility] Xxqvzo8008 [address] RoadDublin [place] [id number] Urea nitrogen [Mass/Vol] 14 mg/dL Normal 8-27 [facility] Work Phone: Comment on above: PATIENT WAS FASTINGP ERFORMED BY: [employer] Jswkcp6739 Leon Catalog SpreeNovant Health Mint [facility] Medical Centerin [place] [id number] Urea nitrogen/Creatinine [Mass ratio] 13 mg/mg Normal - [facility] Medicine Work Phone: Comment on above: PATIENT WAS FASTINGP ERFORMED BY: [facility] Yguwzs7202 [address] Catalog SpreeNovant Health Mint [facility] Medical Centerin [place] [id number] MICROALBUMINOrdered By: Syst em Survey Project Manager on 04-07-2013 Albumin DL <= 20 mg/L (U) [Mass/Vol] 20.4 ug/mL Abnormal 0.0-17.0 [facility] Work Phone: Comment on above: PATIENT WAS FASTINGP ERFORMED BY: LabSynerZ Medical Acmaae3378 [place] Catalog SpreeCape [facility] [id number] Albumin/Creatinine (U) [Mass ratio] 16.1 {mg/g_creat} Normal 0.0-30.0 [facility] Work Phone: Comment on above: PATIENT WAS FASTINGP ERFORMED BY: LabSynerZ Medical Trljjl4237 [facility]in [place] [id number] Creatinine (U) [Mass/Vol] 126.7 mg/dL Normal 22.0-328.0 [facility] Work Phone: Comment on above: PATIENT WAS FASTINGP ERFORMED BY: LabSy[facility]Z Medical Xiflft[address] [facility] [address]in [place] [id number] PSA (PROSTATE SPECIFIC ANTIG EN) (V76.44)Ordered By: Software Release Manager on 04-07-2013 Prostate specific Ag [Mass/Vol] 4.9 ng/mL Abnormal 0.0-4.0 [facility] Work Phone: Comment on above: Jolanta ECLIA methodol ogy. .According to the [place] [employer], Serum PSA shoulddecrease and remain at undetectable levels after radicalprostatectomy. The AUA defines biochemical recurrence as an initialPSA value 0.2 ng/mL or greater followed by a subsequent confirmatoryPSA value 0.2 ng/mL or greater.Values obtained with different assay methods or kits cannot be usedinterchangeably. Results cannot be interpreted as absolute evidenceof the presence or absence of malignant disease. send dr villegas a co py; PATIENT WAS FASTINGPERFORMED BY: CB [facility] Nrfagh7807 [address] RoadDublin [place] [id number] TSH ([id number])Ordered By: BOLD Guidancee m Survey Project Manager on 04-07-2013 TSH Qn 1.790 {uIU/mL} Normal 0.450-4.500 Comprehen sive Internal Medicine Work Phone: Comment on above: PATIENT WAS FASTINGP ERFORMED BY: CB [facility] Uxxdtl0721 [address] RoadDublin [place] [id number] URINALYSIS, W/ MICRO ([id number]) Ordered By: Software Release Manager on 04-07-2013 Appearance (U) Clear Normal Comprehens kurtis Internal Medicine Work Phone: Comment on above: PATIENT WAS FASTINGP ERFORMED BY: CB [facility] Rxylwo7425 [address] RoadDublin [place] [id number] Bilirubin Ql (U) Negative Normal Comprehe nsive Internal Medicine Work Phone: Comment on above: PATIENT WAS FASTINGP ERFORMED BY: CB [facility] Owmjbc5679 [address] RoadDublin [place] [id number] Color (U) Yellow Normal [facility] Work Phone: Comment on above: PATIENT WAS FASTINGP ERFORMED BY: CB [facility] Uhgbdz9440 [address] RoadDublin [place] [id number] Glucose Ql (U) Negative Normal Comprehens kurtis Internal Medicine Work Phone: Comment on above: PATIENT WAS FASTINGP ERFORMED BY: CB [facility] Jgbvdl6354 [address] RoadDublin [place] [id number] Hemoglobin Ql (U) Negative Normal Compreh ensive Internal Medicine Work Phone: Comment on above: PATIENT WAS FASTINGP ERFORMED BY: CB [facility] Auldoh2022 [address] RoadDublin [place] [id number] Ketones Ql (U) Negative Normal Comprehens kurtis Internal Medicine Work Phone: Comment on above: PATIENT WAS FASTINGP ERFORMED BY: CB [facility] Oorbog3606 [facility]in [place] [id number] Leukocyte esterase Test strip Ql (U) Negative Normal [facility] Work Phone: Comment on above: PATIENT WAS FASTINGP ERFORMED BY: KaylieAscension Standish Hospital6370 [facility]bl[facility] [place] [id number] Microscopic observation LM Nom (Urine sed) MICRON Normal [facility] Work Phone: Comment on above: Microscopic follows if indicated. PATIENT WAS FASTINGP ERFORMED BY: [place] 1858370 [facility]in [place] [id number] Microscopic observation LM Nom (Urine sed) See below: Normal [facility] Work Phone: Comment on above: PATIENT WAS FASTINGP ERFORMED BY: [facility] Ajqgvf9346 [facility]in [place] [id number] Nitrite Ql (U) Negative Normal Comprehens kurtis Internal Medicine Work Phone: Comment on above: PATIENT WAS FASTINGP ERFORMED BY: [place] 1858370 [facility]in [place] [id number] pH (U) 6.5 [pH] Normal 5.0-7.5 [facility] Work Phone: Comment on above: PATIENT WAS FASTINGP ERFORMED BY: [facility]6370 [facility]in [place] [id number] Protein Ql (U) Negative Normal Comprehens kurtis Internal Medicine Work Phone: Comment on above: PATIENT WAS FASTINGP ERFORMED BY: [facility] [facility]in [place] [id number] Specific gravity (U) [Rel density] 1.019 1 Normal 1.005-1.030 [facility] Work Phone: Comment on above: PATIENT WAS FASTINGP ERFORMED BY: [facility]6370 [facility] [place] [id number] Urobilinogen Test strip (U) [Mass/Vol] 1.0 mg/dL Normal 0.0-1.9 Comprehensi ve Internal Medicine Work Phone: Comment on above: PATIENT WAS FASTINGP ERFORMED BY: LARON [place] [id number] [facility] [id number] CBC WITH MANUAL DIFF ([id number]) Ordered By: Software Release Manager on 02-05-2012 Basophils (Bld) [#/Vol] 0.0 {x10E3/uL} Normal 0.0-0.2 [facility] Work Phone: Comment on above: PATIENT NOT FASTINGP ERFORMED BY: LARON LottKayla [place] 0444470 [facility] [id number] Information: [id number] Basophils/100 WBC (Bld) 0 % Normal 0-3 [facility] Work Phone: Comment on above: PATIENT NOT FASTINGP ERFORMED BY: [address] [id number] Information: [id number] Eosinophils (Bld) [#/Vol] 0.7 {x10E3/uL} Abnormal 0.0-0.4 [facility] Work Phone: Comment on above: PATIENT NOT FASTINGP ERFORMED BY: [facility]Gold[facility] Hnrdov0586 [facility] [id number] Information: 552371,Q03840 Eosinophils/100 WBC (Bld) 9 % Abnormal 0-7 [facility] Work Phone: Comment on above: PATIENT NOT FASTINGP ERFORMED BY: [place] 1858370 [facility] [id number] Information: [id number] Erythrocyte distribution width (RBC) [Ratio] 14.2 % Normal 12.3-15.4 [facility] Work Phone: Comment on above: PATIENT NOT FASTINGP ERFORMED BY: [facility]6370 [facility] [id number] Information: [id number],V02224 Hematocrit (Bld) [Volume fraction] 51.3 % Abnormal 37.5-51.0 [facility] Work Phone: Comment on above: PATIENT NOT FASTINGP ERFORMED BY: LARON Garcia Bstokd6036 [facility] [id number] Information: 076243,[id number] Hemoglobin (Bld) [Mass/Vol] 17.7 g/dL Normal 12.6-17.7 [facility] Work Phone: Comment on above: PATIENT NOT FASTINGP ERFORMED BY: LARON LottCo Ojinde504[address] [id number] Information: [id number],[id number] Immature granulocytes (Bld) [#/Vol] 0.0 {x10E3/uL} Normal 0.0-0.1 [facility] Work Phone: Comment on above: PATIENT NOT FASTINGP ERFORMED BY: LARON Garcia Datmkd5396 [facility] [id number] Information: 811221,D14856 Immature granulocytes/100 WBC (Bld) 0 % Normal 0-2 [facility] Work Phone: Comment on above: PATIENT NOT FASTINGP ERFORMED BY: LARON LottGold[facility] Jeidee6308 [facility] [id number] Information: [id number] Lymphocytes (Bld) [#/Vol] 1.8 {x10E3/uL} Normal 0.7-4.5 [facility] Work Phone: Comment on above: PATIENT NOT FASTINGP ERFORMED BY: LARON LottKayla [place] 0444470 [facility] [id number] Information: 522046,[id number] Lymphocytes/100 WBC (Bld) 25 % Normal 14-46 [facility] Work Phone: Comment on above: PATIENT NOT FASTINGP ERFORMED BY: LARON Garcia Jwvlwp1849 [facility] [id number] Information: [id number],[id number] MCH (RBC) [Entitic mass] 32.4 pg Normal 26.6-33.0 [facility] Work Phone: Comment on above: PATIENT NOT FASTINGP ERFORMED BY: LARON Garcia Rmuezy1613 [facility] [id number] Information: [id number] MCHC (RBC) [Mass/Vol] 34.5 g/dL Normal 31.5-35.7 [facility] Internal Medicine Work Phone: Comment on above: PATIENT NOT FASTINGP ERFORMED BY: LARON Garcia Cvkptb[address] [id number] Information: 134950,[id number] MCV (RBC) [Entitic vol] 94 fL Normal 79-97 [facility] Work Phone: Comment on above: PATIENT NOT FASTINGP ERFORMED BY: LARON Yulin6370 [facility] [id number] Information: [id number] Monocytes (Bld) [#/Vol] 0.7 {x10E3/uL} Normal 0.1-1.0 [facility] Work Phone: Comment on above: PATIENT NOT FASTINGP ERFORMED BY: LARON Garcia Iifcro2649 [facility] [id number] Information: [id number],[id number] Monocytes/100 WBC (Bld) 9 % Normal 4-13 [facility] Work Phone: Comment on above: PATIENT NOT FASTINGP ERFORMED BY: LARON GarciaJoseph [place] 8282470 [facility] [id number] Information: 297692,[id number] Neutrophils (Bld) [#/Vol] 4.0 {x10E3/uL} Normal 1.8-7.8 [facility] Work Phone: Comment on above: PATIENT NOT FASTINGP ERFORMED BY: LARON Garcia Fxvcfl5148 [facility] [id number] Information: [id number] Neutrophils/100 WBC (Bld) 57 % Normal 40-74 [facility] Work Phone: Comment on above: PATIENT NOT FASTINGP ERFORMED BY: LARON LabCodarlene YuJlvkow1277 [facility]in [place] [id number] Information: [id number] Platelets (Bld) [#/Vol] 217 {x10E3/uL} Normal 140-415 [facility] Work Phone: Comment on above: PATIENT NOT FASTINGP ERFORMED BY: CB LabCodarlene YuGqqmxg5620 [facility]in [place] [id number] Information: 087001,K18660 RBC (Bld) [#/Vol] 5.47 {x10E6/uL} Normal 4.14-5.80 Co [facility] systemsensive Internal Medicine Work Phone: Comment on above: PATIENT NOT FASTINGP ERFORMED BY: LARON LottCodarlene YuYwdqrs8533 [facility]in [place] [id number] Information: 105559,Q07915 WBC (Bld) [#/Vol] 7.2 {x10E3/uL} Normal 4.0-10.5 [facility] Internal Medicine Work Phone: Comment on above: PATIENT NOT FASTINGP ERFORMED BY: LARON LottCodarlene ParraKvmihv7354 [facility] [id number] Information: 330603,H31617 LIPID PANEL (96541)Ordered B y: Software Release Manager on 02-05-2012 Cholesterol [Mass/Vol] 181 mg/dL Normal 100-199 [facility] Internal Medicine Work Phone: Comment on above: PATIENT NOT FASTINGP ERFORMED BY: CB [facility] Wsmhyh4624 [facility]in [place] [id number] Cholesterol in HDL [Mass/Vol] 47 mg/dL Normal [facility] Internal Medicine Work Phone: Comment on above: According to ATP-III Guidelines, HDL-C >59 mg/dL is considered anegative risk factor for CHD. PATIENT NOT FASTINGP ERFORMED BY: CB [facility] Eiknxu9522 [facility]in [place] [id number] Cholesterol in LDL [Mass/Vol] 98 mg/dL Normal 0-99 [facility] Work Phone: Comment on above: PATIENT NOT FASTINGP ERFORMED BY: CB [facility] Iizthu0988 [address] RoadDublin [place] [id number] Cholesterol in LDL/Cholesterol in HDL [Mass ratio] 2.1 {ratio_units} Normal 0.0-3.6 [facility] Work Phone: Comment on above: PATIENT NOT FASTINGP ERFORMED BY: CB [facility] Qevxqj5242 Leon RoadDublin [place] [id number] Cholesterol in VLDL [Mass/Vol] 36 mg/dL Normal 5-40 [facility] Work Phone: Comment on above: PATIENT NOT FASTINGP ERFORMED BY: CB [facility] Ojhsuh8530 [address] RoadDublin [place] [id number] Triglyceride [Mass/Vol] 179 mg/dL Abnormal 0-149 [facility] Work Phone: Comment on above: PATIENT NOT FASTINGP ERFORMED BY: CB [facility] Raojik2993 [address] RoadDublin [place] [id number] METABOLIC PANEL, COMPREHENSI VE ([id number])Ordered By: Software Release Manager on 02-05-2012 Albumin [Mass/Vol] 4.4 g/dL Normal 3.6-4.8 [facility] Internal Medicine Work Phone: Comment on above: PATIENT NOT FASTINGP ERFORMED BY: CB [facility] Egbham9915 [address] RoadDublin [place] [id number] Albumin/Globulin [Mass ratio] 1.9 {ratio} Normal 1.1-2.5 [facility] Work Phone: Comment on above: PATIENT NOT FASTINGP ERFORMED BY: CB [facility] Wlckew2171 [address] RoadDublin [place] [id number] ALP [Catalytic activity/Vol] 62 [iU]/L Normal 25-160 [facility] Work Phone: Comment on above: PATIENT NOT FASTINGP ERFORMED BY: CB [facility] Euarem8248 [address] RoadDublin [place] [id number] ALT [Catalytic activity/Vol] 28 [iU]/L Normal 0-55 [facility] Work Phone: Comment on above: PATIENT NOT FASTINGP ERFORMED BY: CB [facility] Swktuy4807 [address] RoadDublin [place] [id number] AST [Catalytic activity/Vol] 23 [iU]/L Normal 0-40 [facility] Work Phone: Comment on above: PATIENT NOT FASTINGP ERFORMED BY: CB [facility] Lyoasw2575 [address] RoadDublin [place] [id number] Bilirubin [Mass/Vol] 0.7 mg/dL Normal 0.0-1.2 Comp rehensive Internal Medicine Work Phone: Comment on above: PATIENT NOT FASTINGP ERFORMED BY: CB [facility] Qsmeem3183 [address] RoadDublin [place] [id number] Calcium [Mass/Vol] 9.3 mg/dL Normal 8.6-10.2 [facility] Internal Medicine Work Phone: Comment on above: PATIENT NOT FASTINGP ERFORMED BY: CB [facility] Pvsnym6448 [facility] RoadC[facility] [id number] Chloride [Moles/Vol] 105 mmol/L Normal 97-108 [facility] Work Phone: Comment on above: PATIENT NOT FASTINGP ERFORMED BY: CB [facility] Ckemdn3722 Leon RoadNovant Health Mint [facility] Centerin [place] [id number] CO2 [Moles/Vol] 23 mmol/L Normal 20-32 [facility] Internal Medicine Work Phone: Comment on above: PATIENT NOT FASTINGP ERFORMED BY: CB [facility] Xrrniy9753 Leon RoadNovant Health Mint [facility] Medical Centerin [place] [id number] Creatinine [Mass/Vol] 1.04 mg/dL Normal 0.76-1.27 [facility]erens[facility] Work Phone: Comment on above: PATIENT NOT FASTINGP ERFORMED BY: CB [facility] Rhildf9805 [address] Roadblin [place] [id number] GFR/1.73 sq M predicted among blacks CKD-EPI (S/P/Bld) [Vol rate/Area] 85 mL/min/1.73 Normal [facility] Work Phone: Comment on above: PATIENT NOT FASTINGP ERFORMED BY: CB [facility] Aghyqs0783 [address] RoadDublin [place] [id number] GFR/1.73 sq M predicted among non-blacks CKD-EPI (S/P/Bld) [Vol rate/Area] 73 mL/min/1.73 Normal [facility] Internal Medicine Work Phone: Comment on above: PATIENT NOT FASTINGP ERFORMED BY: CB [facility] Dkzlqb1472 [address] RoadDublin [place] [id number] Globulin (S) [Mass/Vol] 2.3 g/dL Normal 1.5-4.5 [facility] Internal Medicine Work Phone: Comment on above: PATIENT NOT FASTINGP ERFORMED BY: CB [facility] Tqdifb3313 [address] RoadDublin [place] [id number] Glucose [Mass/Vol] 86 mg/dL Normal 65-99 [facility] Internal Medicine Work Phone: Comment on above: PATIENT NOT FASTINGP ERFORMED BY: CB [facility] Hdfuxm3525 [address] RoadDublin [place] [id number] Potassium [Moles/Vol] 4.1 mmol/L Normal 3.5-5.2 [facility] Internal Medicine Work Phone: Comment on above: PATIENT NOT FASTINGP ERFORMED BY: CB [facility] Esjlyo0118 [address] RoadDublin [place] [id number] Protein [Mass/Vol] 6.7 g/dL Normal 6.0-8.5 [facility] Internal Medicine Work Phone: Comment on above: PATIENT NOT FASTINGP ERFORMED BY: CB [facility] Gvbagc3313 [address] RoadDublin [place] [id number] Sodium [Moles/Vol] 142 mmol/L Normal 134-144 [facility] Internal Medicine Work Phone: Comment on above: PATIENT NOT FASTINGP ERFORMED BY: CB [facility] Waxpqw6515 [address] RoadDublin [place] [id number] Urea nitrogen [Mass/Vol] 12 mg/dL Normal 8-27 [facility] Internal Medicine Work Phone: Comment on above: PATIENT NOT FASTINGP ERFORMED BY: LARON LabWestley Fytcyy7002 [facility]in [place] [id number] Urea nitrogen/Creatinine [Mass ratio] 12 mg/mg Normal 10-22 [facility] Work Phone: Comment on above: PATIENT NOT FASTINGP ERFORMED BY: LARON LabEstefani Culhsu5556 [facility]in [place] [id number] MICROALBUMINOrdered By: Syst em Survey Project Manager on 02-05-2012 Albumin DL <= 20 mg/L (U) [Mass/Vol] 21.3 ug/mL Abnormal 0.0-17.0 [facility] Work Phone: Comment on above: PATIENT NOT FASTINGP ERFORMED BY: LARON Yulin6370 [facility] [id number] Albumin/Creatinine (U) [Mass ratio] 18.1 {mg/g_creat} Normal 0.0-30.0 [facility] Work Phone: Comment on above: PATIENT NOT FASTINGP ERFORMED BY: LARON Yulin6370 [address] [facility] [id number] Creatinine (U) [Mass/Vol] 117.9 mg/dL Normal 22.0-328.0 [facility] Internal Medicine Work Phone: Comment on above: PATIENT NOT FASTINGP ERFORMED BY: LARON Yulin6370 [address] [facility] [id number] TSH ([id number])Ordered By: Syste m Survey Project Manager on 02-05-2012 TSH Qn 1.960 {uIU/mL} Normal 0.450-4.500 Comprehen sive Internal Medicine Work Phone: Comment on above: PATIENT NOT FASTINGP ERFORMED BY: LARON LabEstefani Vznljg4564 [facility]in [place] [id number] URINALYSIS, W/ MICRO ([id number]) Ordered By: Software Release Manager on 02-05-2012 Appearance (U) Clear Normal [facility]prehens [facility] Work Phone: Comment on above: PATIENT NOT FASTINGP ERFORMED BY: CB Richard Parra6[address] Leon RoadDublin [place] [id number] Bilirubin Ql (U) Negative Normal Comprehe nsive Internal Medicine Work Phone: Comment on above: PATIENT NOT FASTINGP ERFORMED BY: LARON Yulin6[address] Roadblin [place] [id number] Color (U) Yellow Normal [facility] Work Phone: Comment on above: PATIENT NOT FASTINGP ERFORMED BY: LARON Richard Omkmuw5370 Leon Roadblin [place] [id number] Glucose Ql (U) Negative Normal [facility] Work Phone: Comment on above: PATIENT NOT FASTINGP ERFORMED BY: LARON Richard Zcyznd3436 Leon RoadNovant Health Mint [facility] Medical Centerin [place] [id number] Hemoglobin Ql (U) Negative Normal Compreh ensive Internal Medicine Work Phone: Comment on above: PATIENT NOT FASTINGP ERFORMED BY: LARON Richard Wiqhov6771 [address] [facility] [id number] Ketones Ql (U) Negative Normal [facility] Work Phone: Comment on above: PATIENT NOT FASTINGP ERFORMED BY: LARON Richard Hejmaa3529 [address] [facility] [id number] Leukocyte esterase Test strip Ql (U) Negative Normal [facility] Work Phone: Comment on above: PATIENT NOT FASTINGP ERFORMED BY: LARON Josedarlene YuCbmtyl6311 [address] [facility] [id number] Microscopic observation LM Nom (Urine sed) MICRON Normal [facility] Work Phone: Comment on above: Microscopic follows if indicated. PATIENT NOT FASTINGP ERFORMED BY: LARON Josedarlene Nxbevy7441 Leon RoadDublin [place] [id number] Microscopic observation LM Nom (Urine sed) See below: Normal [facility] Work Phone: Comment on above: PATIENT NOT FASTINGP ERFORMED BY: LARON KaylieWestley YuTgcfxv3388 [address] Roadblin [place] [id number] Nitrite Ql (U) Negative Normal [facility] Work Phone: Comment on above: PATIENT NOT FASTINGP ERFORMED BY: LARON [facility] Plkkuc3204 [facility] [id number] pH (U) 6.5 [pH] Normal 5.0-7.5 [facility] Work Phone: Comment on above: PATIENT NOT FASTINGP ERFORMED BY: LARON [facility] Yxyjpq9199 [address] [facility] [id number] Protein Ql (U) Negative Normal [facility] Work Phone: Comment on above: PATIENT NOT FASTINGP ERFORMED BY: LARON [facility] Geojzk8427 [facility] [id number] Specific gravity (U) [Rel density] 1.016 1 Normal 1.005-1.030 [facility] Work Phone: Comment on above: PATIENT NOT FASTINGP ERFORMED BY: LARON [facility] Xceoae2612 [facility] [id number] Urobilinogen Test strip (U) [Mass/Vol] 0.2 mg/dL Normal 0.0-1.9 [facility]prehen[facility] Medicine Work Phone: Comment on above: PATIENT NOT FASTINGP ERFORMED BY: LARON [facility] Kjxjfm8511 [facility] [id number] Glucose, PP/2 Hour (32463)Or dered By: Software Release Manager on 01-22-2010 Glucose 2 Hr post meal [Mass/Vol] 134 mg/dL Normal 65-139 [facility] Work Phone: Comment on above: SOON POSSIBLE; PATIENT WAS FASTINGPERFORMED BY: LARON [facility] Zkzfvm8123 [facility] [id number] Information: [id number] 75G DRAWN@ 1030AM CARBON MONOXIDE ([id number])Order ed By: Andie Erazo on 04-19-2009 Carboxyhemoglobin (Bld) [Mass fraction] 5.3 % Abnormal 0.0-1.9 [facility] Work Phone: Comment on above: Environmental Exposu re: Nonsmokers <2.0 Smokers <9.0 Occupational Exposure: LINDA 3.5 . Detection Limit = 0.1 PATIENT NOT FASTINGP ERFORMED BY: [employer] [address] [id number] CBC (Auto) (81708)Ordered By : Andie Erazo on 04-19-2009 Erythrocyte distribution width (RBC) [Ratio] 14.4 % Normal 11.7-15.0 [facility] Internal Medicine Work Phone: Comment on above: PATIENT NOT FASTINGC linical Information: [id number] PERFORMED BY: [employer] [id number] Hematocrit (Bld) [Volume fraction] 51.5 % Abnormal 36.0-50.0 [facility] Internal Medicine Work Phone: Comment on above: PATIENT NOT FASTINGC linical Information: [id number] PERFORMED BY: [employer] [id number] Hemoglobin (Bld) [Mass/Vol] 17.3 g/dL Abnormal 12.5-17.0 [facility] Internal Medicine Work Phone: Comment on above: PATIENT NOT FASTINGC linical Information: [id number] PERFORMED BY: [employer] [id number] MCH (RBC) [Entitic mass] 32.3 pg Normal 27.0-34.0 [facility] Internal Medicine Work Phone: Comment on above: PATIENT NOT FASTINGC linical Information: [id number] PERFORMED BY: [employer] [id number] MCHC (RBC) [Mass/Vol] 33.6 g/dL Normal 32.0-36.0 [facility] Internal Medicine Work Phone: Comment on above: PATIENT NOT FASTINGC linical Information: [id number] PERFORMED BY: [employer] [id number] MCV (RBC) [Entitic vol] 96 fL Normal 80-98 [facility] Work Phone: Comment on above: PATIENT NOT FASTINGC linical Information: [id number] PERFORMED BY: [employer] [address] [id number] Platelets (Bld) [#/Vol] 203 {x10E3/uL} Normal 140-415 [facility] Work Phone: Comment on above: PATIENT NOT FASTINGC linical Information: [id number] PERFORMED BY: [employer] [address] [id number] RBC (Bld) [#/Vol] 5.36 {x10E6/uL} Normal 4.10-5.60 [facility] Internal Medicine Work Phone: Comment on above: PATIENT NOT FASTINGC linical Information: [id number] PERFORMED BY: [employer] [address] [id number] WBC (Bld) [#/Vol] 5.8 {x10E3/uL} Normal 4.0-10.5 [facility] Internal Medicine Work Phone: Comment on above: PATIENT NOT FASTINGC linical Information: [id number] PERFORMED BY: [employer] [address] [id number] HEPATIC FUNCTION PANEL (8007 6)Ordered By: Andie Erazo on 04-19-2009 Albumin [Mass/Vol] 4.6 g/dL Normal 3.6-4.8 [facility] Internal Medicine Work Phone: Comment on above: PATIENT NOT FASTINGP ERFORMED BY: [employer] [address] [id number] ALP [Catalytic activity/Vol] 70 [iU]/L Normal 25-160 [facility] Internal Medicine Work Phone: Comment on above: PATIENT NOT FASTINGP ERFORMED BY: [employer] [address] [id number] ALT [Catalytic activity/Vol] 36 [iU]/L Normal 0-55 [facility] Work Phone: Comment on above: PATIENT NOT FASTINGP ERFORMED BY: Lab[address] [id number] AST [Catalytic activity/Vol] 24 [iU]/L Normal 0-40 [facility] Work Phone: Comment on above: PATIENT NOT FASTINGP ERFORMED BY: [facility] [address] [id number] Bilirubin [Mass/Vol] 0.6 mg/dL Normal 0.1-1.2 [facility] Internal Medicine Work Phone: Comment on above: PATIENT NOT FASTINGP ERFORMED BY: Lab[address] [id number] Bilirubin.direct [Mass/Vol] 0.14 mg/dL Normal 0.00-0.40 [facility] Work Phone: Comment on above: PATIENT NOT FASTINGP ERFORMED BY: Lab[address] [id number] Protein [Mass/Vol] 7.1 g/dL Normal 6.0-8.5 [facility] Internal Medicine Work Phone: Comment on above: PATIENT NOT FASTINGP ERFORMED BY: [employer] [id number] Lipid Panel ([id number])Ordered B y: Andie Kacey on 04-19-2009 Cholesterol [Mass/Vol] 248 mg/dL Abnormal 100-199 [facility] Internal Medicine Work Phone: Comment on above: PATIENT NOT FASTINGP ERFORMED BY: Lab[address] [id number] Cholesterol in HDL [Mass/Vol] 46 mg/dL Normal [facility] Internal Medicine Work Phone: Comment on above: According to ATP-III Guidelines, HDL-C >59 mg/dL is considered anegative risk factor for CHD. PATIENT NOT FASTINGP ERFORMED BY: Lab[address] [id number] Cholesterol in LDL [Mass/Vol] 158 mg/dL Abnormal 0-99 [facility] Work Phone: Comment on above: PATIENT NOT FASTINGP ERFORMED BY: [employer] [address] [id number] Cholesterol in LDL/Cholesterol in HDL [Mass ratio] 3.4 {ratio_units} Normal 0.0-3.6 [facility] Work Phone: Comment on above: PATIENT NOT FASTINGP ERFORMED BY: [employer] [address] [id number] Cholesterol in VLDL [Mass/Vol] 44 mg/dL Abnormal 5-40 [facility] Work Phone: Comment on above: PATIENT NOT FASTINGP ERFORMED BY: [employer] [address] [id number] Triglyceride [Mass/Vol] 219 mg/dL Abnormal 0-149 [facility] Work Phone: Comment on above: PATIENT NOT FASTINGP ERFORMED BY: [employer] [address] [id number] CARBON MONOXIDE ([id number])Order ed By: Olga Spears on 02-18-2009 Carboxyhemoglobin (Bld) [Mass fraction] 8.7 % Abnormal 0.0-1.9 [facility] Internal Medicine Work Phone: Comment on above: Environmental Exposu re: Nonsmokers <2.0 Smokers <9.0 Occupational Exposure: LINDA 3.5 . Detection Limit = 0.1 PATIENT NOT FASTINGP ERFORMED BY: [employer] [address] [id number] CBC WITH MANUAL DIFF ([id number]) Ordered By: Olga Spears on 02-18-2009 Basophils (Bld) [#/Vol] 0.0 {x10E3/uL} Normal 0.0-0.2 [facility] Work Phone: Comment on above: PATIENT NOT FASTINGC linical Information: ADD [id number] PERFORMED BY: [employer] [address] [id number] Basophils/100 WBC (Bld) 0 % Normal 0-3 [facility] Work Phone: Comment on above: PATIENT NOT FASTINGC linical Information: ADD [id number] PERFORMED BY: [employer] [address] [id number] Eosinophils (Bld) [#/Vol] 0.6 {x10E3/uL} Abnormal 0.0-0.4 [facility] Work Phone: Comment on above: PATIENT NOT FASTINGC linical Information: ADD [id number] PERFORMED BY: [employer] [address] [id number] Eosinophils/100 WBC (Bld) 8 % Abnormal 0-7 [facility] Work Phone: Comment on above: PATIENT NOT FASTINGC linical Information: ADD [id number] PERFORMED BY: [employer] [address] [id number] Erythrocyte distribution width (RBC) [Ratio] 14.3 % Normal 11.7-15.0 [facility] Work Phone: Comment on above: PATIENT NOT FASTINGC linical Information: ADD [id number],[id number] PERFORMED BY: [employer] [address] [id number] Hematocrit (Bld) [Volume fraction] 52.8 % Abnormal 36.0-50.0 [facility] Work Phone: Comment on above: PATIENT NOT FASTINGC linical Information: ADD [id number] PERFORMED BY: [employer] [address] [id number] Hemoglobin (Bld) [Mass/Vol] 18.0 g/dL Abnormal 12.5-17.0 [facility] Work Phone: Comment on above: PATIENT NOT FASTINGC linical Information: ADD 259636,[id number] PERFORMED BY: [employer] [address] [id number] Lymphocytes (Bld) [#/Vol] 1.7 {x10E3/uL} Normal 0.7-4.5 [facility] Work Phone: Comment on above: PATIENT NOT FASTINGC linical Information: ADD [id number] PERFORMED BY: [employer] [address] [id number] Lymphocytes/100 WBC (Bld) 24 % Normal 14-46 [facility] Work Phone: Comment on above: PATIENT NOT FASTINGC linical Information: ADD [id number] PERFORMED BY: [employer] [address] [id number] MCH (RBC) [Entitic mass] 32.7 pg Normal 27.0-34.0 [facility] Work Phone: Comment on above: PATIENT NOT FASTINGC linical Information: ADD [id number],[id number] PERFORMED BY: [employer] [address] [id number] MCHC (RBC) [Mass/Vol] 34.2 g/dL Normal 32.0-36.0 [facility] Internal Medicine Work Phone: Comment on above: PATIENT NOT FASTINGC linical Information: ADD [id number] PERFORMED BY: [employer] [address] [id number] MCV (RBC) [Entitic vol] 96 fL Normal 80-98 [facility] Work Phone: Comment on above: PATIENT NOT FASTINGC linical Information: ADD [id number],[id number] PERFORMED BY: [employer] [address] [id number] Monocytes (Bld) [#/Vol] 0.4 {x10E3/uL} Normal 0.1-1.0 [facility] Work Phone: Comment on above: PATIENT NOT FASTINGC linical Information: ADD [id number],[id number] PERFORMED BY: [employer] [address] [id number] Monocytes/100 WBC (Bld) 6 % Normal 4-13 [facility] Work Phone: Comment on above: PATIENT NOT FASTINGC linical Information: ADD [id number] PERFORMED BY: [employer] [address] [id number] Neutrophils (Bld) [#/Vol] 4.3 {x10E3/uL} Normal 1.8-7.8 [facility] Work Phone: Comment on above: PATIENT NOT FASTINGC linical Information: ADD [id number],[id number] PERFORMED BY: [employer] [address] [id number] Neutrophils/100 WBC (Bld) 62 % Normal 40-74 [facility] Work Phone: Comment on above: PATIENT NOT FASTINGC linical Information: ADD [id number],[id number] PERFORMED BY: [employer] [id number] Platelets (Bld) [#/Vol] 189 {x10E3/uL} Normal 140-415 [facility] Internal Medicine Work Phone: Comment on above: PATIENT NOT FASTINGC linical Information: ADD [id number] PERFORMED BY: [employer] [address] [id number] RBC (Bld) [#/Vol] 5.51 {x10E6/uL} Normal 4.10-5.60 [facility] Internal Medicine Work Phone: Comment on above: PATIENT NOT FASTINGC linical Information: ADD [id number],[id number] PERFORMED BY: [employer] [address] [id number] WBC (Bld) [#/Vol] 7.0 {x10E3/uL} Normal 4.0-10.5 [facility] Internal Medicine Work Phone: Comment on above: PATIENT NOT FASTINGC linical Information: ADD [id number] PERFORMED BY: [employer] [address] [id number] METABOLIC PANEL, COMPREHENSI VE (75217)Ordered By: Olga Spears on 02-18-2009 Albumin [Mass/Vol] 4.5 g/dL Normal 3.6-4.8 [facility] Internal Medicine Work Phone: Comment on above: PATIENT NOT FASTINGP ERFORMED BY: [facility] [address] [id number] Albumin/Globulin [Mass ratio] 1.8 {ratio} Normal 1.1-2.5 [facility] Work Phone: Comment on above: PATIENT NOT FASTINGP ERFORMED BY: [facility] [address] [id number] ALP [Catalytic activity/Vol] 76 [iU]/L Normal 25-160 [facility] Work Phone: Comment on above: PATIENT NOT FASTINGP ERFORMED BY: [employer] [address] [id number] ALT [Catalytic activity/Vol] 41 [iU]/L Normal 0-55 [facility] Work Phone: Comment on above: PATIENT NOT FASTINGP ERFORMED BY: [employer] [address] [id number] AST [Catalytic activity/Vol] 27 [iU]/L Normal 0-40 [facility] Work Phone: Comment on above: PATIENT NOT FASTINGP ERFORMED BY: [employer] [address] [id number] Bilirubin [Mass/Vol] 0.8 mg/dL Normal 0.1-1.2 Comp rehensive Internal Medicine Work Phone: Comment on above: PATIENT NOT FASTINGP ERFORMED BY: [employer] [address] [id number] Calcium [Mass/Vol] 9.8 mg/dL Normal 8.5-10.6 [facility] Internal Medicine Work Phone: Comment on above: PATIENT NOT FASTINGP ERFORMED BY: [facility] [facility] [id number] Chloride [Moles/Vol] 105 mmol/L Normal 97-108 Comp rehensive Internal Medicine Work Phone: Comment on above: PATIENT NOT FASTINGP ERFORMED BY: [employer] MCI [facility] Stximhbmii[address] [id number] CO2 [Moles/Vol] 24 mmol/L Normal 20-32 Comprehen [facility] Internal Medicine Work Phone: Comment on above: PATIENT NOT FASTINGP ERFORMED BY: [employer]CI LabAltSchoolTfldowveyv[address] [id number] Creatinine [Mass/Vol] 1.20 mg/dL Normal 0.76-1.27 [facility] Internal Medicine Work Phone: Comment on above: PATIENT NOT FASTINGP ERFORMED BY: [employer]CI LabAltSchoolWscadebmlh[address] [id number] GFR/1.73 sq M predicted among blacks MDRD (S/P/Bld) [Vol rate/Area] mL/min/{1.73_m2} Normal [facility] Work Phone: Comment on above: Note: Persistent red uction for 3 months or more in an eGFR<60 mL/min/1.73 m2 defines CKD. Patients with eGFR values>/=60 mL/min/1.73 m2 may also have CKD if evidence of persistentproteinuria is present. Additional information may be found [email or web address]. PATIENT NOT FASTINGP ERFORMED BY: [employer] MCI [facility] Xrtsmfnpnx[address] [id number] GFR/1.73 sq M.predicted MDRD (S/P/Bld) [Vol rate/Area] mL/min/{1.73_m2} Normal [facility] Work Phone: Comment on above: PATIENT NOT FASTINGP ERFORMED BY: [employer] Snliievkkx94[address] [id number] Globulin (S) [Mass/Vol] 2.5 g/dL Normal 1.5-4.5 [facility] Internal Medicine Work Phone: Comment on above: PATIENT NOT FASTINGP ERFORMED BY: [employer] LabAltSchoolDupjlaoeag[address] [id number] Glucose [Mass/Vol] 89 mg/dL Normal 65-99 [facility] Internal Medicine Work Phone: Comment on above: PATIENT NOT FASTINGP ERFORMED BY: [facility] [address] [id number] Potassium [Moles/Vol] 4.3 mmol/L Normal 3.5-5.2 [facility] Internal Medicine Work Phone: Comment on above: PATIENT NOT FASTINGP ERFORMED BY: BN [facility] [address] [id number] Protein [Mass/Vol] 7.0 g/dL Normal 6.0-8.5 [facility] Internal Medicine Work Phone: Comment on above: PATIENT NOT FASTINGP ERFORMED BY: BN [facility] [address] [id number] Sodium [Moles/Vol] 140 mmol/L Normal 135-145 [facility] Internal Medicine Work Phone: Comment on above: PATIENT NOT FASTINGP ERFORMED BY: BN [facility] [address] [id number] Urea nitrogen [Mass/Vol] 14 mg/dL Normal 5-26 [facility] Internal Medicine Work Phone: Comment on above: PATIENT NOT FASTINGP ERFORMED BY: [facility] [address] [id number] Urea nitrogen/Creatinine [Mass ratio] 12 mg/mg Normal 8-27 [facility] Internal Medicine Work Phone: Comment on above: PATIENT NOT FASTINGP ERFORMED BY: [facility] [address] [id number] PSA (PROSTATE SPECIFIC ANTIG EN) (V76.44)Ordered By: Olga Spears on 02-18-2009 Prostate specific Ag [Mass/Vol] 2.8 ng/mL Normal 0.0-4.0 [facility] Internal Medicine Work Phone: Comment on above: Jolanta ECLIA methodol ogy. .According to the [place] [employer], PSA should beundetectable after radical prostatectomy. A PSA of less than0.5 ng/mL (or undetectable) is not likely to be associated withdisease recurrence within five years of treatment.Values obtained with different assay methods or kits cannot be usedinterchangeably. Results cannot be interpreted as absolute evidenceof the presence or absence of malignant disease. PATIENT NOT FASTINGP ERFORMED BY: [employer] Xhllsadlep7368 [facility] [id number] TSH ([id number])Ordered By: Estrellita Spears on 02-18-2009 TSH Qn 1.960 {uIU/mL} Normal 0.450-4.500 [facility] Internal Medicine Work Phone: Comment on above: Effective January 282008, TSH will be changing to the [employer] ECLIA methodology. The reference interval will be changing to: Age (uIU/mL) 0 - 3 days 5.170 - 14.600 4 - 30 days 0.430 - 16.100 31 day - 12 mon 0.620 - 8.050 13 mon - 5 yrs 0.540 - 4.530 6 - 10 yrs 0.660 - 4.140 11 - 19 yrs 0.530 - 3.590 > 19 yrs 0.450 - 4.500 PATIENT NOT FASTINGP ERFORMED BY: [employer]ton1447 [facility] [id number] CBC WITH MANUAL DIFF ([id number]) Ordered By: Andie Erazo on 01-04-2009 Basophils (Bld) [#/Vol] 0.0 {x10E3/uL} Normal 0.0-0.2 [facility] Work Phone: Comment on above: PATIENT WAS FASTINGC linical Information: ADD DRAW FEE 004598 ADD J 18189 PERFORMED BY: Box[employer]6370 [facility] [id number] Basophils/100 WBC (Bld) 0 % Normal 0-3 [facility] Work Phone: Comment on above: PATIENT WAS FASTINGC linical Information: ADD DRAW FEE 909533 ADD J 30797 PERFORMED BY: Boxed6370 [employer] [facility] CompanySouthern [facility] [id number] Eosinophils (Bld) [#/Vol] 0.6 {x10E3/uL} Abnormal 0.0-0.4 [facility] Work Phone: Comment on above: PATIENT WAS FASTINGC linical Information: ADD DRAW FEE [id number] ADD J 85018 PERFORMED BY: [place] 1858370 [facility] [id number] Eosinophils/100 WBC (Bld) 9 % Abnormal 0-7 [facility] Work Phone: Comment on above: PATIENT WAS FASTINGC linical Information: ADD DRAW FEE 007840 ADD J PERFORMED BY: [address] [id number] Erythrocyte distribution width (RBC) [Ratio] 14.5 % Normal 11.7-15.0 [facility] Work Phone: Comment on above: PATIENT WAS FASTINGC linical Information: ADD DRAW FEE 280575 ADD J PERFORMED BY: [address] [id number] Hematocrit (Bld) [Volume fraction] 52.7 % Abnormal 36.0-50.0 [facility] Work Phone: Comment on above: PATIENT WAS FASTINGC linical Information: ADD DRAW FEE 231318 ADD J 30511 PERFORMED BY: [address] [id number] Hemoglobin (Bld) [Mass/Vol] 17.7 g/dL Abnormal 12.5-17.0 [facility] Work Phone: Comment on above: PATIENT WAS FASTINGC linical Information: ADD DRAW FEE 212049 ADD J 73705 PERFORMED BY: [address] [id number] Lymphocytes (Bld) [#/Vol] 1.5 {x10E3/uL} Normal 0.7-4.5 [facility] Work Phone: Comment on above: PATIENT WAS FASTINGC linical Information: ADD DRAW FEE 207931 ADD J 13598 PERFORMED BY: [address] [id number] Lymphocytes/100 WBC (Bld) 23 % Normal 14-46 [facility] Work Phone: Comment on above: PATIENT WAS FASTINGC linical Information: ADD DRAW FEE 527872 ADD J PERFORMED BY: LARON [place] [id number] [facility] [id number] MCH (RBC) [Entitic mass] 32.5 pg Normal 27.0-34.0 [facility] Internal Medicine Work Phone: Comment on above: PATIENT WAS FASTINGC linical Information: ADD DRAW FEE 510692 ADD J PERFORMED BY: LARON [address] [id number] MCHC (RBC) [Mass/Vol] 33.6 g/dL Normal 32.0-36.0 [facility] Internal Medicine Work Phone: Comment on above: PATIENT WAS FASTINGC linical Information: ADD DRAW FEE 299608 ADD J PERFORMED BY: LARON [address] [id number] MCV (RBC) [Entitic vol] 97 fL Normal 80-98 [facility] Work Phone: Comment on above: PATIENT WAS FASTINGC linical Information: ADD DRAW FEE [id number] ADD J PERFORMED BY: LARON [address] [id number] Monocytes (Bld) [#/Vol] 0.4 {x10E3/uL} Normal 0.1-1.0 [facility] Internal Medicine Work Phone: Comment on above: PATIENT WAS FASTINGC linical Information: ADD DRAW FEE 685651 ADD J PERFORMED BY: LARON [place] [id number] [facility] [id number] Monocytes/100 WBC (Bld) 6 % Normal 4-13 [facility] Work Phone: Comment on above: PATIENT WAS FASTINGC linical Information: ADD DRAW FEE [id number] ADD J PERFORMED BY: LARON [address] [id number] Neutrophils (Bld) [#/Vol] 4.0 {x10E3/uL} Normal 1.8-7.8 [facility] Internal Medicine Work Phone: Comment on above: PATIENT WAS FASTINGC linical Information: ADD DRAW FEE 232282 ADD J 48265 PERFORMED BY: LARON [facility]Gold[facility] Bewdjr4488 [address] [employer] [facility]reeC[facility] [id number] Neutrophils/100 WBC (Bld) 62 % Normal 40-74 [facility] Internal Medicine Work Phone: Comment on above: PATIENT WAS FASTINGC linical Information: ADD DRAW FEE 515187 ADD J 62696 PERFORMED BY: LARON BioRelixAsc[facility] Hospital[address] [place] [address] [id number] Platelets (Bld) [#/Vol] 211 {x10E3/uL} Normal 140-415 [facility] Internal Medicine Work Phone: Comment on above: Please note refere nce interval change PATIENT WAS FASTINGC linical Information: ADD DRAW FEE [id number] ADD J [id number] PERFORMED BY: LARON Garcia [id number] [place] [facility] [id number] RBC (Bld) [#/Vol] 5.44 {x10E6/uL} Normal 4.10-5.60 [facility] Internal Medicine Work Phone: Comment on above: PATIENT WAS FASTINGC linical Information: ADD DRAW FEE [id number] ADD J [id number] PERFORMED BY: LARON [employer] Krihrk1682 [place] [facility] [id number] WBC (Bld) [#/Vol] 6.5 {x10E3/uL} Normal 4.0-10.5 [facility] Internal Medicine Work Phone: Comment on above: PATIENT WAS FASTINGC linical Information: ADD DRAW FEE [id number] ADD J [id number] PERFORMED BY: LARON [facility] [place] [address] [id number] LIPID PANEL ([id number])Ordered B y: Andie Gonzalezjackie on 01-04-2009 Cholesterol [Mass/Vol] 225 mg/dL Abnormal 100-199 [facility] Internal Medicine Work Phone: Comment on above: PATIENT WAS FASTINGP ERFORMED BY: LARON LabCoEast Orange VA Medical CenterZmasjs1063 [place] [facility] [id number] Cholesterol in HDL [Mass/Vol] 46 mg/dL Normal [facility] Work Phone: Comment on above: According to ATP-III Guidelines, HDL-C >59 mg/dL is considered anegative risk factor for CHD. PATIENT WAS FASTINGP ERFORMED BY: CB [facility] Ubjiqc6760 [place] [facility] [id number] Cholesterol in LDL [Mass/Vol] 140 mg/dL Abnormal 0-99 [facility] Work Phone: Comment on above: PATIENT WAS FASTINGP ERFORMED BY: CB [facility] Qoppre8321 [place] [facility] [id number] Cholesterol in LDL/Cholesterol in HDL [Mass ratio] 3.0 {ratio_units} Normal 0.0-3.6 [facility] Work Phone: Comment on above: PATIENT WAS FASTINGP ERFORMED BY: CB [facility] Ksizps3026 [place] [facility] [id number] Cholesterol in VLDL [Mass/Vol] 39 mg/dL Normal 5-40 [facility] Work Phone: Comment on above: PATIENT WAS FASTINGP ERFORMED BY: CB [facility] Ctxiom5329 [place] [facility] [id number] Triglyceride [Mass/Vol] 196 mg/dL Abnormal 0-149 [facility] Work Phone: Comment on above: PATIENT WAS FASTINGP ERFORMED BY: CB [facility] Pesamk7465 [place] [facility] [id number] METABOLIC PANEL, COMPREHENSI VE ([id number])Ordered By: Andie Erazo on 01-04-2009 Albumin [Mass/Vol] 4.6 g/dL Normal 3.6-4.8 [facility] Internal Medicine Work Phone: Comment on above: PATIENT WAS FASTINGP ERFORMED BY: CB [facility] Mribpq4057 [place] [facility] [id number] Albumin/Globulin [Mass ratio] 1.8 {ratio} Normal 1.1-2.5 [facility] Work Phone: Comment on above: PATIENT WAS FASTINGP ERFORMED BY: LARON [facility] Yovvnl0299 Leon RoadDublin [place] [id number] ALP [Catalytic activity/Vol] 79 [iU]/L Normal 25-160 [facility] Work Phone: Comment on above: PATIENT WAS FASTINGP ERFORMED BY: LARON [facility] Rmtnbb9860 Leon RoadDublin [place] [id number] ALT [Catalytic activity/Vol] 33 [iU]/L Normal 0-55 [facility] Work Phone: Comment on above: PATIENT WAS FASTINGP ERFORMED BY: [facility] Yfmypt2681 Leon RoadDublin [place] [id number] AST [Catalytic activity/Vol] 24 [iU]/L Normal 0-40 [facility] Work Phone: Comment on above: PATIENT WAS FASTINGP ERFORMED BY: LARON [facility] Etfnkv4706 Leon RoadDublin [place] [id number] Bilirubin [Mass/Vol] 0.7 mg/dL Normal 0.1-1.2 [facility] Work Phone: Comment on above: PATIENT WAS FASTINGP ERFORMED BY: LARON [facility] Nrvtam1987 Leon RoadDublin [place] [id number] Calcium [Mass/Vol] 10.0 mg/dL Normal 8.5-10.6 [facility] Internal Medicine Work Phone: Comment on above: PATIENT WAS FASTINGP ERFORMED BY: CB [facility] Lvfxer1364 Leon RoadDublin [place] [id number] Chloride [Moles/Vol] 103 mmol/L Normal 97-108 [facility] Work Phone: Comment on above: PATIENT WAS FASTINGP ERFORMED BY: CB [facility] Wvpkxs7526 [address] RoadDublin [place] [id number] CO2 [Moles/Vol] 23 mmol/L Normal 20-32 [facility] Internal Medicine Work Phone: Comment on above: PATIENT WAS FASTINGP ERFORMED BY: CB [facility] Zposiw5361 Leon RoadDublin [place] [id number] Creatinine [Mass/Vol] 1.23 mg/dL Normal 0.76-1.27 [facility] prehensive Internal Medicine Work Phone: Comment on above: PATIENT WAS FASTINGP ERFORMED BY: [facility]6370 [facility] [id number] GFR/1.73 sq M predicted among blacks MDRD (S/P/Bld) [Vol rate/Area] mL/min/{1.73_m2} Normal [facility] Work Phone: Comment on above: Note: Persistent red uction for 3 months or more in an eGFR<60 mL/min/1.73 m2 defines CKD. Patients with eGFR values>/=60 mL/min/1.73 m2 may also have CKD if evidence of persistentproteinuria is present. Additional information may be found [email or web address]. PATIENT WAS FASTINGP ERFORMED BY: LabAsc[facility]6370 [facility] [id number] GFR/1.73 sq M.predicted MDRD (S/P/Bld) [Vol rate/Area] 59 mL/min/{1.73_m2} Abnormal Comprehensiv e Internal Medicine Work Phone: Comment on above: PATIENT WAS FASTINGP ERFORMED BY: [facility]RelixAsc[facility] Hospital6370 [facility] [id number] Globulin (S) [Mass/Vol] 2.5 g/dL Normal 1.5-4.5 [facility] Work Phone: Comment on above: PATIENT WAS FASTINGP ERFORMED BY: [facility] Rdzcug1163 [facility] [id number] Glucose [Mass/Vol] 98 mg/dL Normal 65-99 [facility] Internal Medicine Work Phone: Comment on above: PATIENT WAS FASTINGP ERFORMED BY: [facility]Asc[facility]6370 [facility] [id number] Potassium [Moles/Vol] 4.3 mmol/L Normal 3.5-5.2 [facility] prehensive Internal Medicine Work Phone: Comment on above: PATIENT WAS FASTINGP ERFORMED BY: CB [facility] Uatmmr3253 [address] RoadDublin [place] [id number] Protein [Mass/Vol] 7.1 g/dL Normal 6.0-8.5 [facility] Internal Medicine Work Phone: Comment on above: PATIENT WAS FASTINGP ERFORMED BY: CB [facility] Eowtdn1819 Leon RoadDublin [place] [id number] Sodium [Moles/Vol] 141 mmol/L Normal 135-145 [facility] Internal Medicine Work Phone: Comment on above: PATIENT WAS FASTINGP ERFORMED BY: CB [facility] Fapoem0220 [address] RoadDublin [place] [id number] Urea nitrogen [Mass/Vol] 11 mg/dL Normal 5-26 [facility] Work Phone: Comment on above: PATIENT WAS FASTINGP ERFORMED BY: CB [facility] Frxdid0810 [address] RoadD[address] [place] [id number] Urea nitrogen/Creatinine [Mass ratio] 9 mg/mg Normal 8-27 [facility] Work Phone: Comment on above: PATIENT WAS FASTINGP ERFORMED BY: CB [facility] Xycwvn0085 Leon RoadDublin [place] [id number] MICROALBUMINOrdered By: Andie Erazo on 01-04-2009 Albumin DL <= 20 mg/L (U) [Mass/Vol] 25.9 ug/mL Abnormal 0.0-17.0 [facility] Work Phone: Comment on above: PATIENT WAS FASTINGP ERFORMED BY: CB [facility] Yctxwo0622 [address] RoadDublin [place] [id number] Albumin/Creatinine DL <= 20 mg/L (U) [Mass ratio] 15.3 {ug/mg_creat} Normal 0.0-30.0 [facility] Work Phone: Comment on above: PATIENT WAS FASTINGP ERFORMED BY: CB [facility] Qtwxlb8364 Leon RoadDublin [place] [id number] Creatinine (U) [Mass/Vol] 169.4 mg/dL Normal 22.0-328.0 [facility] Work Phone: Comment on above: PATIENT WAS FASTINGP ERFORMED BY: [facility] Cbzcnz8824 [facility] [id number] TSH ([id number])Ordered By: Andie Erazo on 01-04-2009 TSH Qn 1.340 {uIU/mL} Normal 0.450-4.500 [facility] Internal Medicine Work Phone: Comment on above: PATIENT WAS FASTINGP ERFORMED BY: [facility] Uowdka9432 [address] [facility] [id number] Vital Signs Date Time Vital Sign Value Performing Clinician Facility 12-13-2024 08:20-0400 Body mass index (BMI) [Ratio] 30.4 kg/m2 Dr. Reema Myers MD Work Phone: [facility] 12-13-2024 08:20-0400 Body temperature 97.4 [degF] Dr. Reema Myers MD Work Phone: [facility] 12-13-2024 08:20-0400 Body weight 104.[address] Reema Myers MD Work Phone: [facility] 12-13-2024 08:20-0400 Diastolic blood pressure 64 mm[Hg] Dr. Reema Myers MD Work Phone: [facility] 12-13-2024 08:20-0400 Heart rate 74 /min Dr. Reema Myers MD Work Phone: [facility] 12-13-2024 08:20-0400 Respiratory rate 16 /min Dr. Reema Myers MD Work Phone: [facility] 12-13-2024 08:20-0400 SaO2% (BldA) [Mass fraction] 93 % Dr. Reema Myers MD Work Phone: [facility] 12-13-2024 08:20-0400 Systolic blood pressure 95 mm[Hg] Dr. Reema Myers MD Work Phone: [facility] 08-30-2024 14:04-0500 Body height 185.[address] Reema Myers MD Work Phone: [facility] 08-30-2024 14:03-0500 Body mass index (BMI) [Ratio] 31.4 kg/m2 Dr. Reema Myers MD Work Phone: [facility] 08-30-2024 14:03-0500 Body temperature 97.8 [degF] Dr. Reema Myers MD Work Phone: [facility] 08-30-2024 14:03-0500 Body weight 107.[address] Reema Myesr MD Work Phone: [facility] 08-30-2024 14:03-0500 Diastolic blood pressure 72 mm[Hg] Dr. Reema Myers MD Work Phone: [facility] 08-30-2024 14:03-0500 Heart rate 99 /min Dr. Reema Myers MD Work Phone: [facility] 08-30-2024 14:03-0500 Respiratory rate 16 /min Dr. Reema Myers MD Work Phone: [facility] 08-30-2024 14:03-0500 SaO2% (BldA) [Mass fraction] 93 % Dr. Reema Myers MD Work Phone: [facility] 08-30-2024 14:03-0500 Systolic blood pressure 110 mm[Hg] Dr. Reema Myers MD Work Phone: [facility] 11-06-2023 16:04-0400 Body temperature 98.6 [degF] Dr. Reema Myers Work Phone: [facility] 11-06-2023 16:04-0400 Diastolic blood pressure 76 mm[Hg] Dr. Reema Myers Work Phone: [facility] 11-06-2023 16:04-0400 Heart rate 80 /min Dr. Reema Myers Work Phone: [facility] 11-06-2023 16:04-0400 Respiratory rate 18 /min Dr. Reema Myers Work Phone: [facility] 11-06-2023 16:04-0400 SaO2% (BldA) [Mass fraction] 98 % Dr. Reema Myers Work Phone: [facility] 11-06-2023 16:04-0400 Systolic blood pressure 119 mm[Hg] Dr. Reema Myers Work Phone: [facility] 11-05-2023 15:19-0400 Body height 185.[address] Reema Myers Work Phone: [facility] 11-05-2023 15:19-0400 Body weight [address] Reema Myers Work Phone: [facility] 11-05-2023 08:04-0400 Body height 185.[address] Reema Myers Work Phone: [facility] 11-05-2023 08:04-0400 Body mass index (BMI) [Ratio] 31.6 kg/m2 Dr. Reema Myers Work Phone: [facility] 11-05-2023 08:04-0400 Body weight [address] Reema Myers Work Phone: [facility] 11-05-2023 07:58-0400 Body temperature 97.6 [degF] Dr. Reema Myers Work Phone: [facility] 11-05-2023 07:58-0400 Diastolic blood pressure 71 mm[Hg] Dr. Reema Myers Work Phone: [facility] 11-05-2023 07:58-0400 Heart rate 63 /min Dr. Reema Myers Work Phone: [facility] 11-05-2023 07:58-0400 Respiratory rate 18 /min Dr. Reema Myers Work Phone: [facility] 11-05-2023 07:58-0400 SaO2% (BldA) [Mass fraction] 98 % Dr. Reema Myers Work Phone: [facility] 11-05-2023 07:58-0400 Systolic blood pressure 113 mm[Hg] Dr. Reema Myers Work Phone: [facility] 11-04-2023 21:38-0400 Inhaled oxygen flow rate 2 L/min Dr. Reema Myers Work Phone: [facility] 11-04-2023 17:30-0400 Body temperature 97.9 [degF] Dr. Reema Myers Work Phone: [facility] 11-04-2023 17:30-0400 Diastolic blood pressure 58 mm[Hg] Dr. Reema Myers Work Phone: [facility] 11-04-2023 17:30-0400 Heart rate 65 /min Dr. Reema Myers Work Phone: [facility] 11-04-2023 17:30-0400 Respiratory rate 18 /min Dr. Reema Myers Work Phone: [facility] 11-04-2023 17:30-0400 SaO2% (BldA) [Mass fraction] 98 % Dr. Reema Myers Work Phone: [facility] 11-04-2023 17:30-0400 Systolic blood pressure 90 mm[Hg] Dr. Reema Myers Work Phone: [facility] 05-09-2024 14:58-0400 Body mass index (BMI) [Ratio] 22.3 kg/m2 Dr. Reema Myers Work Phone: [facility] 11-04-2023 14:58-0400 Body weight 76.[address] Reema Myers Work Phone: [facility] 11-04-2023 12:16-0400 Body height 185.[address] Reema Myers Work Phone: [facility] 10-20-2023 09:07-0400 Body temperature 96.7 [degF] Dr. Reema Myers Work Phone: [facility] 10-20-2023 09:07-0400 Diastolic blood pressure 67 mm[Hg] Dr. Reema Myers Work Phone: [facility] 10-20-2023 09:07-0400 Heart rate 72 /min Dr. Reema Myers Work Phone: [facility] 10-20-2023 09:07-0400 Respiratory rate 16 /min Dr. Reema Myers Work Phone: [facility] 10-20-2023 09:07-0400 SaO2% (BldA) [Mass fraction] 94 % Dr. Reema Myers Work Phone: [facility] 10-20-2023 09:07-0400 Systolic blood pressure 108 mm[Hg] Dr. Reema Myers Work Phone: [facility] 10-20-2023 07:54-0400 Body height 185.[address] Reema Myers Work Phone: [facility] 10-20-2023 07:54-0400 Body mass index (BMI) [Ratio] 31.1 kg/m2 Dr. Reema Myers Work Phone: [facility] 10-20-2023 07:54-0400 Body weight [address] Reema Myers Work Phone: [facility] 09-29-2023 13:59-0400 Body height 185.[address] Reema Myers Work Phone: [facility] 09-29-2023 13:59-0400 Body mass index (BMI) [Ratio] 32.3 kg/m2 Dr. Reema Myers Work Phone: [facility] 09-29-2023 13:59-0400 Body weight 111.[address] Reema Myers Work Phone: [facility] 09-29-2023 13:59-0400 Diastolic blood pressure 67 mm[Hg] Dr. Reema Myers Work Phone: [facility] 09-29-2023 13:59-0400 Heart rate 73 /min Dr. Reema Myers Work Phone: [facility] 09-29-2023 13:59-0400 Respiratory rate 17 /min Dr. Reema Myers Work Phone: [facility] 09-29-2023 13:59-0400 SaO2% (BldA) [Mass fraction] 95 % Dr. Reema Myers Work Phone: [facility] 09-29-2023 13:59-0400 Systolic blood pressure 101 mm[Hg] Dr. Reema Myers Work Phone: [facility] 08-13-2023 08:29-0500 Body height 185.[address] Reema Myers Work Phone: [facility] 08-13-2023 08:29-0500 Body mass index (BMI) [Ratio] 30.7 kg/m2 Dr. Reema Myers Work Phone: [facility] 08-13-2023 08:29-0500 Body temperature 97.8 [degF] Dr. Reema Myers Work Phone: [facility] 08-13-2023 08:29-0500 Body weight 105.[address] Reema Myers Work Phone: [facility] 08-13-2023 08:29-0500 Diastolic blood pressure 83 mm[Hg] Dr. Reema Myers Work Phone: [facility] 08-13-2023 08:29-0500 Heart rate 76 /min Dr. Reema Myers Work Phone: [facility] 08-13-2023 08:29-0500 Respiratory rate 18 /min Dr. Reema Myers Work Phone: [facility] 08-13-2023 08:29-0500 SaO2% (BldA) [Mass fraction] 95 % Dr. Reema Myers Work Phone: [facility] 08-13-2023 08:29-0500 Systolic blood pressure 124 mm[Hg] Dr. Reema Myers Work Phone: [facility] 07-01-2023 11:33-0500 Body height 185.[address] Reema Myers Work Phone: [facility] 07-01-2023 11:33-0500 Body mass index (BMI) [Ratio] 29.9 kg/m2 Dr. Reema Myers Work Phone: [facility] 07-01-2023 11:33-0500 Body temperature 96.9 [degF] Dr. Reema Myers Work Phone: [facility] 07-01-2023 11:33-0500 Body weight 103.[address] Reema Myers Work Phone: [facility] 07-01-2023 11:33-0500 Diastolic blood pressure 68 mm[Hg] Dr. Reema Myers Work Phone: [facility] 07-01-2023 11:33-0500 Heart rate 84 /min Dr. Reema Myers Work Phone: [facility] 07-01-2023 11:33-0500 Respiratory rate 18 /min Dr. Reema Myers Work Phone: [facility] 07-01-2023 11:33-0500 SaO2% (BldA) [Mass fraction] 94 % Dr. Reema Myers Work Phone: [facility] 07-01-2023 11:33-0500 Systolic blood pressure 107 mm[Hg] Dr. Reema Myers Work Phone: [facility] 06-29-2023 12:40-0500 Body height 185.[address] Reema Myers Work Phone: [facility] 06-29-2023 12:40-0500 Body weight 99.[address] Reema Myers Work Phone: [facility] 06-29-2023 12:40-0500 Heart rate 77 /min Dr. Reema Myers Work Phone: [facility] 06-29-2023 12:40-0500 SaO2% (BldA) [Mass fraction] 94 % Dr. Reema Myers Work Phone: [facility] 02-03-2023 18:23-0400 Body height 185.[address] Reema Myers Work Phone: [facility] 11-26-2022 08:58-0400 Body weight 106.[address] Reema Myers Work Phone: [facility] 11-26-2022 08:58-0400 Diastolic blood pressure 73 mm[Hg] Dr. Reema Myers Work Phone: [facility] 11-26-2022 08:58-0400 Heart rate 79 /min Dr. Reema Myers Work Phone: [facility] 11-26-2022 08:58-0400 Respiratory rate 24 /min Dr. Reema Myers Work Phone: [facility] 11-26-2022 08:58-0400 Systolic blood pressure 113 mm[Hg] Dr. Reema Myers Work Phone: [facility] 05-27-2022 10:42-0500 Body height 185.[address] Reema Myers Work Phone: [facility] Work Phone: 05-27-2022 10:42-0500 Body weight 108.[address] Reema Myers Work Phone: [facility] Work Phone: 05-26-2022 08:04-0500 Body mass index (BMI) [Ratio] 31.5 kg/m2 Dr. Reema Myers Work Phone: [facility] Work Phone: 05-06-2022 10:43-0500 Body height 185.[address] Reema Myers Work Phone: [facility] Work Phone: 05-06-2022 10:43-0500 Body weight 108.[address] Reema Myers Work Phone: [facility] Work Phone: 05-05-2022 08:53-0500 Body mass index (BMI) [Ratio] 31.5 kg/m2 Dr. Reema Myers Work Phone: [facility] Work Phone: 04-09-2022 15:50-0400 Body mass index (BMI) [Ratio] 31.5 kg/m2 Dr. Reema Myers Work Phone: [facility] Work Phone: 04-09-2022 15:50-0400 Body weight 108.[address] Reema Myers Work Phone: [facility] Work Phone: 04-09-2022 15:50-0400 Diastolic blood pressure 83 mm[Hg] Dr. Reema Myers Work Phone: [facility] Work Phone: 04-09-2022 15:50-0400 Heart rate 73 /min Dr. Reema Myers Work Phone: [facility] Work Phone: 04-09-2022 15:50-0400 Respiratory rate 18 /min Dr. Reema Myers Work Phone: [facility] Work Phone: 04-09-2022 15:50-0400 SaO2% (BldA) [Mass fraction] 95 % Dr. Reema Myers Work Phone: [facility] Work Phone: 04-09-2022 15:50-0400 Systolic blood pressure 131 mm[Hg] Dr. Reema Myers Work Phone: [facility] Work Phone: 02-09-2022 11:24-0400 Diastolic blood pressure 80 mm[Hg] Dr. Reema Myers Work Phone: [facility] Work Phone: 02-09-2022 11:24-0400 Heart rate 81 /min Dr. Reema Myers Work Phone: [facility] Work Phone: 02-09-2022 11:24-0400 Respiratory rate 18 /min Dr. Reema Myers Work Phone: [facility] Work Phone: 02-09-2022 11:24-0400 Systolic blood pressure 126 mm[Hg] Dr. Reema Myers Work Phone: [facility] Work Phone: 02-02-2022 10:58-0400 Body height 185.[address] Reema Myers Work Phone: [facility] Work Phone: 02-02-2022 10:58-0400 Body weight 106.[address] Reema Myers Work Phone: [facility] Work Phone: 01-30-2022 08:38-0400 Body mass index (BMI) [Ratio] 30.9 kg/m2 Dr. Reema Myers Work Phone: [facility] Work Phone: 01-26-2022 15:14-0400 Body mass index (BMI) [Ratio] 31 kg/m2 Dr. Reema Myers Work Phone: [facility] Work Phone: 01-26-2022 15:14-0400 Body weight 106.[address] Reema Myers Work Phone: [facility] Work Phone: 01-26-2022 15:14-0400 Diastolic blood pressure 62 mm[Hg] Dr. Reema Myers Work Phone: [facility] Work Phone: 01-26-2022 15:14-0400 Heart rate 76 /min Dr. Reema Myers Work Phone: [facility] Work Phone: 01-26-2022 15:14-0400 Respiratory rate 16 /min Dr. Reema Myers Work Phone: [facility] Work Phone: 01-26-2022 15:14-0400 Systolic blood pressure 108 mm[Hg] Dr. Reema Myers Work Phone: [facility] Work Phone: 10-31-2021 14:54-0400 Body mass index (BMI) [Ratio] 31.5 kg/m2 Dr. Reema Myers Work Phone: [facility] Work Phone: 10-31-2021 14:54-0400 Body weight 108.[address] Reema Myers Work Phone: [facility] Work Phone: 10-31-2021 14:54-0400 Diastolic blood pressure 77 mm[Hg] Dr. Reema Myers Work Phone: [facility] Work Phone: 10-31-2021 14:54-0400 Heart rate 85 /min Dr. Reema Myers Work Phone: [facility] Work Phone: 10-31-2021 14:54-0400 Respiratory rate 18 /min Dr. Reema Myers Work Phone: [facility] Work Phone: 10-31-2021 14:54-0400 SaO2% (BldA) [Mass fraction] 95 % Dr. Reema Myers Work Phone: [facility] Work Phone: 10-31-2021 14:54-0400 Systolic blood pressure 121 mm[Hg] Dr. Reema Myers Work Phone: [facility] Work Phone: 10-31-2021 14:54-0400 Body height 185.[address] Reema Myers Work Phone: [facility] Work Phone: 10-31-2021 14:54-0400 Body mass index (BMI) [Ratio] 31.5 kg/m2 Dr. Reema Myers Work Phone: [facility] Work Phone: 10-31-2021 14:54-0400 Body weight 108.[address] Reema Myers Work Phone: [facility] Work Phone: 10-31-2021 14:54-0400 Diastolic blood pressure 77 mm[Hg] Dr. Reema Myers Work Phone: [facility] Work Phone: 10-31-2021 14:54-0400 Heart rate 85 /min Dr. Reema Myers Work Phone: [facility] Work Phone: 10-31-2021 14:54-0400 Respiratory rate 18 /min Dr. Reema Myers Work Phone: [facility] Work Phone: 10-31-2021 14:54-0400 SaO2% (BldA) [Mass fraction] 95 % Dr. Reema Myers Work Phone: [facility] Work Phone: 10-31-2021 14:54-0400 Systolic blood pressure 121 mm[Hg] Dr. Reema Myers Work Phone: [facility] Work Phone: 05-20-2015 10:55-0500 BMI (Body Mass Index) 32.34 kg/m2 Olga Spears [facility] Internal Medicine Work Phone: 05-20-2015 10:55-0500 Body Temperature 97.6 [degF] Olga Spears [facility] Work Phone: Comment on above: Method: Oral 05-20-2015 10:55-0500 Body weight 104.44 kg Olga Spears [facility] Internal Medicine Work Phone: 05-20-2015 10:55-0500 BP Diastolic 70 mm[Hg] Olga Spears [facility] Internal Medicine Work Phone: Comment on above: Patient Position: Sitting; Cuff Location : Left Arm; Cuff Size: Large 05-20-2015 10:55-0500 BP Systolic 115 mm[Hg] Olga Spears [facility] Internal Medicine Work Phone: Comment on above: Patient Position: Sitting; Cuff Location : Left Arm; Cuff Size: Large 05-20-2015 10:55-0500 BSA (Body Surface Area) 2.23 m2 Olga Spears [facility] Internal Medicine Work Phone: 05-20-2015 10:55-0500 Height 179.71 cm Olga Spears [facility] Internal Medicine Work Phone: 05-20-2015 10:55-0500 Pulse (Heart Rate) 57 /min Olga Spears [facility] Internal Medicine Work Phone: Comment on above: Pattern: Regular 05-20-2015 10:55-0500 Pulse Oximetry 96 % Olga Spears [facility] Internal Medicine Work Phone: Comment on above: Room air 05-20-2015 10:55-0500 Respiratory Rate 18 /min Olga Spears [facility] Internal Medicine Work Phone: Comment on above: Pattern: Unlabored 01-16-2015 15:15-0400 BMI (Body Mass Index) 33.18 kg/m2 Olga Spears [facility] Internal Medicine Work Phone: 01-16-2015 15:15-0400 Body Temperature 97.9 [degF] Olga Spears [facility] Internal Medicine Work Phone: Comment on above: Method: Temporal 01-16-2015 15:15-0400 Body weight 107.16 kg Olga Spears [facility] Internal Medicine Work Phone: 01-16-2015 15:15-0400 BP Diastolic 62 mm[Hg] Olga Spears [facility] Internal Medicine Work Phone: Comment on above: Patient Position: Sitting; Cuff Location : Left Arm; Cuff Size: Standard 01-16-2015 15:15-0400 BP Systolic 132 mm[Hg] Olga Spears [facility] Internal Medicine Work Phone: Comment on above: Patient Position: Sitting; Cuff Location : Left Arm; Cuff Size: Standard 01-16-2015 15:15-0400 BSA (Body Surface Area) 2.26 m2 Olga Spears [facility] Internal Medicine Work Phone: 01-16-2015 15:15-0400 Height 179.71 cm Olga Spears [facility] Internal Medicine Work Phone: 01-16-2015 15:15-0400 Pulse (Heart Rate) 65 /min Olga Spears [facility] Internal Medicine Work Phone: Comment on above: Pattern: Regular 01-16-2015 15:15-0400 Pulse Oximetry 96 % Olga Spears [facility] Internal Medicine Work Phone: Comment on above: Room air 01-16-2015 15:15-0400 Respiratory Rate 18 /min Olga Spears [facility] Internal Medicine Work Phone: Comment on above: Pattern: Unlabored 07-18-2014 12:04-0500 BMI (Body Mass Index) 33.34 kg/m2 Olga Spears [facility] Internal Medicine Work Phone: Comment on above: hearing impairedhas an eye doc but don't know the name DR. Carr 07-18-2014 12:04-0500 Body Temperature 97.3 [degF] Olga Spears [facility] Internal Medicine Work Phone: Comment on above: Method: Oral hearing impairedhas an eye doc but don't know the name DR. Carr 07-18-2014 12:04-0500 Body weight 107.67 kg Olga Spears [facility] Internal Medicine Work Phone: Comment on above: hearing impairedhas an eye doc but don't know the name DR. Carr 07-18-2014 12:04-0500 BP Diastolic 72 mm[Hg] Olga Spears [facility] Internal Medicine Work Phone: Comment on above: Patient Position: Sitting; Cuff Location : Left Arm; Cuff Size: Large hearing impairedhas an eye doc but don't know the name DR. Carr 07-18-2014 12:04-0500 BP Systolic 110 mm[Hg] Olga Tory [facility] Internal Medicine Work Phone: Comment on above: Patient Position: Sitting; Cuff Location : Left Arm; Cuff Size: Large hearing impairedhas an eye doc but don't know the name DR. Carr 07-18-2014 12:04-0500 BSA (Body Surface Area) 2.26 m2 Olga Tory [facility] Internal Medicine Work Phone: Comment on above: hearing impairedhas an eye doc but don't know the name DR. Carr 07-18-2014 12:04-0500 Height 179.71 cm Olga Tory [facility] Internal Medicine Work Phone: Comment on above: hearing impairedhas an eye doc but don't know the name DR. Carr 07-18-2014 12:04-0500 Pulse (Heart Rate) 50 /min Olga Spears [facility] Internal Medicine Work Phone: Comment on above: Pattern: Regular hearing impairedhas an eye doc but don't know the name DR. Carr 07-18-2014 12:04-0500 Pulse Oximetry 97 % Olga Tory [facility] Internal Medicine Work Phone: Comment on above: Room air hearing impairedhas an eye doc but don't know the name DR. Carr 07-18-2014 12:04-0500 Respiratory Rate 18 /min Olga Spears [facility] Internal Medicine Work Phone: Comment on above: Pattern: Unlabored hearing impairedhas an eye doc but don't know the name DR. Carr 04-07-2013 10:31-0400 BMI (Body Mass Index) 32.31 kg/m2 Olga Spears [facility] Internal Medicine Work Phone: 04-07-2013 10:31-0400 Body weight 104.33 kg Olga Spears [facility] Internal Medicine Work Phone: 04-07-2013 10:31-0400 BP Diastolic 82 mm[Hg] Olga Spears [facility] Internal Medicine Work Phone: Comment on above: Patient Position: Sitting; Cuff Location : Left Arm; Cuff Size: Large 04-07-2013 10:31-0400 BP Systolic 120 mm[Hg] Olga Spears [facility] Internal Medicine Work Phone: Comment on above: Patient Position: Sitting; Cuff Location : Left Arm; Cuff Size: Large 04-07-2013 10:31-0400 BSA (Body Surface Area) 2.23 m2 Olga Spears [facility] Internal Medicine Work Phone: 04-07-2013 10:31-0400 Height 179.71 cm Olga Spears [facility] Internal Medicine Work Phone: 04-07-2013 10:31-0400 Pulse (Heart Rate) 53 /min Olga Spears [facility] Internal Medicine Work Phone: Comment on above: Pattern: Regular 04-07-2013 10:31-0400 Pulse Oximetry 95 % Olga Spears [facility] Internal Medicine Work Phone: Comment on above: Room air 04-07-2013 10:31-0400 Respiratory Rate 18 /min Olga Spears [facility] Internal Medicine Work Phone: Comment on above: Pattern: Unlabored 10-04-2012 09:34-0400 BMI (Body Mass Index) 32.75 kg/m2 Olga Spears [facility] Internal Medicine Work Phone: 10-04-2012 09:34-0400 Body Temperature 97.8 [degF] Olga Spears [facility] Internal Medicine Work Phone: Comment on above: Method: Oral 10-04-2012 09:34-0400 Body weight 105.77 kg Olga Spears [facility] Internal Medicine Work Phone: 10-04-2012 09:34-0400 BP Diastolic 62 mm[Hg] Olga Spears [facility] Internal Medicine Work Phone: Comment on above: Patient Position: Sitting; Cuff Location : Left Arm; Cuff Size: Large 10-04-2012 09:34-0400 BP Systolic 122 mm[Hg] Olga Spears [facility] Medicine Work Phone: Comment on above: Patient Position: Sitting; Cuff Location : Left Arm; Cuff Size: Large 10-04-2012 09:34-0400 BSA (Body Surface Area) 2.25 m2 Olga Spears [facility] Internal Medicine Work Phone: 10-04-2012 09:34-0400 Height 179.71 cm Olga Spears [facility] Medicine Work Phone: 10-04-2012 09:34-0400 Pulse (Heart Rate) 64 /min Olga Spears [facility] Internal Medicine Work Phone: Comment on above: Pattern: Regular 10-04-2012 09:34-0400 Respiratory Rate 20 /min Olga Spears [facility] Internal Medicine Work Phone: Comment on above: Pattern: Unlabored 02-05-2012 09:52-0400 BMI (Body Mass Index) 31.6 kg/m2 Olga Spears [facility] Internal Medicine Work Phone: 02-05-2012 09:52-0400 Body weight 102.06 kg Olga Spears [facility] Medicine Work Phone: 02-05-2012 09:52-0400 BP Diastolic 78 mm[Hg] Olga Spears [facility] Medicine Work Phone: Comment on above: Patient Position: Sitting; Cuff Location : Left Arm; Cuff Size: Large 02-05-2012 09:52-0400 BP Systolic 110 mm[Hg] [facility]: Comment on above: Patient Position: Sitting; Cuff Location : Left Arm; Cuff Size: Large 02-05-2012 09:52-0400 BSA (Body Surface Area) 2.21 m2 Olga Spears [facility] Work Phone: 02-05-2012 09:52-0400 Height 179.71 cm Olga Spears [facility] Medicine Work Phone: 02-05-2012 09:52-0400 Pulse (Heart Rate) 60 /[facility]: Comment on above: Pattern: Regular 02-05-2012 09:52-0400 Respiratory Rate 16 /min Olga Spears [facility] Internal Medicine Work Phone: Comment on above: Pattern: Unlabored 06-12-2011 11:11-0500 BMI (Body Mass Index) 31.68 kg/m2 Olga Spears [facility] Internal Medicine Work Phone: 06-12-2011 11:11-0500 Body Temperature 97.9 [degF] Olga Spears [facility] Internal Medicine Work Phone: Comment on above: Method: Oral 06-12-2011 11:11-0500 Body weight 102.32 kg Olga Spears [facility] Work Phone: 06-12-2011 11:11-0500 BP Diastolic 80 mm[Hg] Olga Spears [facility] Medicine Work Phone: Comment on above: Patient Position: Sitting; Cuff Location : Left Arm; Cuff Size: Large 06-12-2011 11:11-0500 BP Systolic 124 mm[Hg] Olga Spears [facility] Internal Medicine Work Phone: Comment on above: Patient Position: Sitting; Cuff Location : Left Arm; Cuff Size: Large 06-12-2011 11:11-0500 BSA (Body Surface Area) 2.21 m2 Olga Spears [facility] Internal Medicine Work Phone: 06-12-2011 11:11-0500 Height 179.71 cm Olga Spears [facility] Internal Medicine Work Phone: 06-12-2011 11:11-0500 Pulse (Heart Rate) 72 /min Olga Spears [facility] Internal Medicine Work Phone: Comment on above: Pattern: Regular 06-12-2011 11:11-0500 Respiratory Rate 20 /min Olga Spears [facility] Internal Medicine Work Phone: Comment on above: Pattern: Unlabored 06-01-2011 13:40-0500 BMI (Body Mass Index) 32.16 kg/m2 [facility] Work Phone: 06-01-2011 13:40-0500 Body Temperature 98.4 [degF] Olga Spears [facility] Internal Medicine Work Phone: Comment on above: Method: Oral 06-01-2011 13:40-0500 Body weight 103.87 kg Olga Spears [facility] Internal Medicine Work Phone: 06-01-2011 13:40-0500 BP Diastolic 76 mm[Hg] Olga Spears [facility] Internal Medicine Work Phone: Comment on above: Patient Position: Sitting; Cuff Location : Left Arm; Cuff Size: Standard 06-01-2011 13:40-0500 BP Systolic 116 mm[Hg] Olga Spears [facility] Internal Medicine Work Phone: Comment on above: Patient Position: Sitting; Cuff Location : Left Arm; Cuff Size: Standard 06-01-2011 13:40-0500 BSA (Body Surface Area) 2.23 m2 Olga Spears [facility] Internal Medicine Work Phone: 06-01-2011 13:40-0500 Height 179.71 cm Olga Spears [facility] Internal Medicine Work Phone: 06-01-2011 13:40-0500 Pulse (Heart Rate) 62 /min Olga Spears [facility] Internal Medicine Work Phone: Comment on above: Pattern: Regular 06-01-2011 13:40-0500 Pulse Oximetry 95 % Olga Spears [facility] Internal Medicine Work Phone: Comment on above: Room air 06-01-2011 13:40-0500 Respiratory Rate 17 /min Olga Spears [facility] Internal Medicine Work Phone: 10-27-2010 13:45-0400 BMI (Body Mass Index) 32.16 kg/m2 Olga Spears [facility] Internal Medicine Work Phone: 10-27-2010 13:45-0400 Body Temperature 96.5 [degF] Olga Spears [facility] Internal Medicine Work Phone: 10-27-2010 13:45-0400 Body weight 103.87 kg Olga Spears [facility] Internal Medicine Work Phone: 10-27-2010 13:45-0400 BP Diastolic 78 mm[Hg] Olga Spears [facility] Internal Medicine Work Phone: Comment on above: Patient Position: Sitting; Cuff Location : Left Arm; Cuff Size: Large 10-27-2010 13:45-0400 BP Systolic 120 mm[Hg] Olga Spears [facility] Internal Medicine Work Phone: Comment on above: Patient Position: Sitting; Cuff Location : Left Arm; Cuff Size: Large 10-27-2010 13:45-0400 BSA (Body Surface Area) 2.23 m2 Olga Spears [facility] Internal Medicine Work Phone: 10-27-2010 13:45-0400 Height 179.71 cm Olga Spears [facility] Internal Medicine Work Phone: 10-27-2010 13:45-0400 Pulse (Heart Rate) 68 /min Olga Spears [facility] Internal Medicine Work Phone: Comment on above: Pattern: Regular 10-27-2010 13:45-0400 Pulse Oximetry 94 % Olga Spears [facility] Internal Medicine Work Phone: Comment on above: Room air 10-27-2010 13:45-0400 Respiratory Rate 20 /min Olga Spears [facility] Internal Medicine Work Phone: Comment on above: Pattern: Unlabored 08-28-2010 09:21-0500 BMI (Body Mass Index) 29.72 kg/m2 Olga Spears [facility] Internal Medicine Work Phone: 08-28-2010 09:21-0500 Body Temperature 97.2 [degF] Olga Spears [facility] Internal Medicine Work Phone: Comment on above: Method: Oral 08-28-2010 09:21-0500 Body weight 102.17 kg Olga Spears [facility] Internal Medicine Work Phone: 08-28-2010 09:21-0500 BP Diastolic 78 mm[Hg] Olga Spears [facility] Internal Medicine Work Phone: Comment on above: Patient Position: Sitting; Cuff Location : Left Arm; Cuff Size: Large 08-28-2010 09:21-0500 BP Systolic 122 mm[Hg] Olga Spears [facility] Internal Medicine Work Phone: Comment on above: Patient Position: Sitting; Cuff Location : Left Arm; Cuff Size: Large 08-28-2010 09:21-0500 BSA (Body Surface Area) 2.26 m2 Olga Spears [facility] Internal Medicine Work Phone: 08-28-2010 09:21-0500 Height 185.42 cm Olga Spears [facility] Internal Medicine Work Phone: 08-28-2010 09:21-0500 Pulse (Heart Rate) 60 /min Olga Spears [facility] Internal Medicine Work Phone: Comment on above: Pattern: Regular 08-28-2010 09:21-0500 Respiratory Rate 18 /min Olga Spears [facility] Internal Medicine Work Phone: Comment on above: Pattern: Unlabored 04-25-2010 11:07-0400 Body Temperature 97.3 [degF] Olga Spears [facility] Internal Medicine Work Phone: Comment on above: Method: Oral 04-25-2010 11:07-0400 Body weight 100.25 kg Olga Spears [facility] Internal Medicine Work Phone: 04-25-2010 11:07-0400 BP Diastolic 82 mm[Hg] Olga Spears [facility] Internal Medicine Work Phone: Comment on above: Patient Position: Sitting; Cuff Location : Left Arm; Cuff Size: Standard 04-25-2010 11:07-0400 BP Systolic 126 mm[Hg] [facility] Work Phone: Comment on above: Patient Position: Sitting; Cuff Location : Left Arm; Cuff Size: Standard 04-25-2010 11:07-0400 Pulse (Heart Rate) 60 /min Olga Spears [facility] Internal Medicine Work Phone: Comment on above: Pattern: Regular 04-25-2010 11:07-0400 Respiratory Rate 16 /min Olga Spears [facility] Internal Medicine Work Phone: Comment on above: Pattern: Unlabored 01-10-2010 10:37-0400 BMI (Body Mass Index) 29.58 kg/m2 [facility] Work Phone: 01-10-2010 10:37-0400 Body weight 101.69 kg Olga Spears [facility] Internal Medicine Work Phone: 01-10-2010 10:37-0400 BP Diastolic 72 mm[Hg] Olga Spears [facility] Internal Medicine Work Phone: Comment on above: Patient Position: Sitting; Cuff Location : Left Arm; Cuff Size: Large 01-10-2010 10:37-0400 BP Systolic 128 mm[Hg] Olga Spears [facility] Internal Medicine Work Phone: Comment on above: Patient Position: Sitting; Cuff Location : Left Arm; Cuff Size: Large 01-10-2010 10:37-0400 BSA (Body Surface Area) 2.26 m2 Olga Spears [facility] Internal Medicine Work Phone: 01-10-2010 10:37-0400 Height 185.42 cm [facility]: 01-10-2010 10:37-0400 Pulse (Heart Rate) 64 /min Olga Spears [facility] Internal Medicine Work Phone: Comment on above: Pattern: Regular 01-10-2010 10:37-0400 Respiratory Rate 20 /min Olga Spears [facility] Internal Medicine Work Phone: Comment on above: Pattern: Unlabored 10-25-2009 09:57-0400 BMI (Body Mass Index) 29.5 kg/m2 [facility] Work Phone: 10-25-2009 09:57-0400 Body weight 101.41 kg Olga Spears [facility] Internal Medicine Work Phone: 10-25-2009 09:57-0400 BP Diastolic 82 mm[Hg] [facility] Work [facility]: Comment on above: Patient Position: Sitting; Cuff Location : Left Arm; Cuff Size: Large 10-25-2009 09:57-0400 BP Systolic 122 mm[Hg] Olga Spears [facility] Internal Medicine Work Phone: Comment on above: Patient Position: Sitting; Cuff Location : Left Arm; Cuff Size: Large 10-25-2009 09:57-0400 BSA (Body Surface Area) 2.26 m2 Olga Spears [facility] Internal Medicine Work Phone: 10-25-2009 09:57-0400 Height 185.42 cm [facility] Work [facility]: 10-25-2009 09:57-0400 Pulse (Heart Rate) 60 /min Olga Spears [facility] Internal Medicine Work Phone: Comment on above: Pattern: Regular 10-25-2009 09:57-0400 Respiratory Rate 20 /min Olga Spears [facility] Internal Medicine Work Phone: Comment on above: Pattern: Unlabored 04-25-2009 10:36-0400 BMI (Body Mass Index) 30.09 kg/m2 Olga Spears [facility] Internal Medicine Work Phone: 04-25-2009 10:36-0400 Body weight 103.45 kg Olga Spears [facility] Internal Medicine Work Phone: 04-25-2009 10:36-0400 BP Diastolic 82 mm[Hg] Olga Spears [facility] Internal Medicine Work Phone: Comment on above: Patient Position: Sitting; Cuff Location : Left Arm; Cuff Size: Standard 04-25-2009 10:36-0400 BP Systolic 128 mm[Hg] [facility] Work [facility]: Comment on above: Patient Position: Sitting; Cuff Location : Left Arm; Cuff Size: Standard 04-25-2009 10:36-0400 BSA (Body Surface Area) 2.28 m2 Olga Spears [facility] Internal Medicine Work Phone: 04-25-2009 10:36-0400 Head Circumference 0 cm [facility] Work Phone: 04-25-2009 10:36-0400 Height 185.42 cm Olga Spears [facility] Internal Medicine Work Phone: 04-25-2009 10:36-0400 Pulse (Heart Rate) 60 /min Olga Spears [facility] Internal Medicine Work Phone: Comment on above: Pattern: Regular 04-25-2009 10:36-0400 Respiratory Rate 18 /min Olga Spears [facility] Internal Medicine Work Phone: Comment on above: Pattern: Unlabored 03-01-2009 10:56-0400 BMI (Body Mass Index) 29.27 kg/m2 Olga Spears [facility] Internal Medicine Work Phone: 03-01-2009 10:56-0400 Body weight 99.96 kg Olga Spears [facility] Internal Medicine Work Phone: 03-01-2009 10:56-0400 BP Diastolic 84 mm[Hg] Olga Spears [facility] Internal Medicine Work Phone: Comment on above: Patient Position: Sitting; Cuff Location : Left Arm; Cuff Size: Large 03-01-2009 10:56-0400 BP Systolic 118 mm[Hg] Olga Spears [facility] Internal Medicine Work Phone: Comment on above: Patient Position: Sitting; Cuff Location : Left Arm; Cuff Size: Large 03-01-2009 10:56-0400 BSA (Body Surface Area) 2.24 m2 Olga Spears [facility] Internal Medicine Work Phone: 03-01-2009 10:56-0400 Head Circumference 0 cm Olga Spears [facility] Internal Medicine Work Phone: 03-01-2009 10:56-0400 Height 184.78 cm Olga Spears [facility] Internal Medicine Work Phone: 03-01-2009 10:56-0400 Pulse (Heart Rate) 64 /min Olga Spears [facility] Internal Medicine Work Phone: Comment on above: Pattern: Regular 03-01-2009 10:56-0400 Respiratory Rate 20 /min Olga Spears [facility] Internal Medicine Work Phone: Comment on above: Pattern: Unlabored 02-22-2009 11:02-0400 BMI (Body Mass Index) 29.27 kg/m2 Olga Spears [facility] Internal Medicine Work Phone: 02-22-2009 11:02-040 Body weight 99.96 kg Olga Spears [facility] Internal Medicine Work Phone: 02-22-2009 11:02-0400 BP Diastolic 80 mm[Hg] Olga Spears [facility] Internal Medicine Work Phone: Comment on above: Patient Position: Sitting; Cuff Location : Left Arm; Cuff Size: Large 02-22-2009 11:02-0400 BP Systolic 128 mm[Hg] Olga Spears [facility] Internal Medicine Work Phone: Comment on above: Patient Position: Sitting; Cuff Location : Left Arm; Cuff Size: Large 02-22-2009 11:020400 BSA (Body Surface Area) 2.24 m2 Olga Spears [facility] Internal Medicine Work Phone: 02-22-2009 11:02-0400 Head Circumference 0 cm Olga Spears [facility] Internal Medicine Work Phone: 02-22-2009 11:02-0400 Height 184.78 cm Olga Spears [facility] Work Phone: 02-22-2009 11:02-0400 Pulse (Heart Rate) 72 /min Olga Spears [facility] Internal Medicine Work Phone: Comment on above: Pattern: Regular 02-22-2009 11:02-0400 Respiratory Rate 20 /min Olga Spears [facility] Internal Medicine Work Phone: Comment on above: Pattern: Unlabored 02-18-2009 12:09-0400 Body weight 100.25 kg Olga Spears [facility] Internal Medicine Work Phone: 02-18-2009 12:09-0400 BP Diastolic 86 mm[Hg] Olga Spears [facility] Internal Medicine Work Phone: Comment on above: Patient Position: Sitting; Cuff Location : Left Arm; Cuff Size: Large 02-18-2009 12:09-0400 BP Systolic 130 mm[Hg] Olga Spears [facility] Internal Medicine Work Phone: Comment on above: Patient Position: Sitting; Cuff Location : Left Arm; Cuff Size: Large 02-18-2009 12:09-0400 Head Circumference 0 cm Olga Spears [facility] Internal Medicine Work Phone: 02-18-2009 12:09-0400 Height 0 cm Olga Spears [facility] Work Phone: 02-18-2009 12:09-0400 Pulse (Heart Rate) 68 /min Olga Spears [facility] Internal Medicine Work Phone: Comment on above: Pattern: Regular 02-18-2009 12:09-0400 Respiratory Rate 18 /min Olga Spears [facility] Internal Medicine Work Phone: Comment on above: Pattern: Unlabored 01-21-2009 09:58-0400 Body weight 100.25 kg Olga Spears [facility] Internal Medicine Work Phone: 01-21-2009 09:58-0400 BP Diastolic 94 mm[Hg] Olga Spears [facility] Internal Medicine Work Phone: Comment on above: Patient Position: Sitting; Cuff Location : Left Arm; Cuff Size: Standard 01-21-2009 09:58-0400 BP Systolic 136 mm[Hg] Olga Spears [facility] Internal Medicine Work Phone: Comment on above: Patient Position: Sitting; Cuff Location : Left Arm; Cuff Size: Standard 01-21-2009 09:58-0400 Head Circumference 0 cm Olga Spears [facility] Internal Medicine Work Phone: 01-21-2009 09:58-0400 Height 0 cm Olga Spears [facility] Work Phone: 01-21-2009 09:58-0400 Pulse (Heart Rate) 68 /min Olga Spears [facility] Internal Medicine Work Phone: Comment on above: Pattern: Regular 01-21-2009 09:58-0400 Respiratory Rate 16 /min Olga Spears [facility] Internal Medicine Work Phone: Comment on above: Pattern: Unlabored 01-04-2009 09:14-0400 Body weight 0 kg Olga Spears [facility] Internal Medicine Work Phone: 01-04-2009 09:14-0400 BP Diastolic 84 mm[Hg] Olga Spears [facility] Internal Medicine Work Phone: Comment on above: Patient Position: Standing; Cuff Locatio n: Left Arm; Cuff Size: Standard 01-04-2009 09:14-0400 BP Systolic 110 mm[Hg] [facility] Work Phone: Comment on above: Patient Position: Standing; Cuff Locatio n: Left Arm; Cuff Size: Standard 01-04-2009 09:140400 Head Circumference 0 cm [facility] Work Phone: 01-04-2009 09:14-0400 Height 0 cm [facility] Work Phone: 01-04-2009 09:14-0400 Pulse (Heart Rate) 74 /min [facility] Work Phone: Comment on above: Pattern: Regular 01-04-2009 09:13-0400 Body weight 0 kg Olga Spears [facility] Medicine Work Phone: 01-04-2009 09:13-0400 BP Diastolic 100 mm[Hg] Olga Spears [facility] Internal Medicine Work Phone: Comment on above: Patient Position: Supine; Cuff Location: Left Arm; Cuff Size: Standard Patient Position: Si tting; Cuff Location: Left Arm; Cuff Size: Standard 01-04-2009 09:13-0400 BP Systolic 134 mm[Hg] [facility] Work Phone: Comment on above: Patient Position: Supine; Cuff Location: Left Arm; Cuff Size: Standard 01-04-2009 09:13-0400 BP Systolic 140 mm[Hg] [facility] Work Phone: Comment on above: Patient Position: Sitting; Cuff Location : Left Arm; Cuff Size: Standard 01-04-2009 09:13-0400 Head Circumference 0 cm Olga Spears [facility] Medicine Work Phone: 01-04-2009 09:13-0400 Height 0 cm Olga Spears [facility] Work Phone: 01-04-2009 09:13-0400 Pulse (Heart Rate) 64 /min Olga Spears [facility] [facility] Work Phone: Comment on above: Pattern: Regular 01-04-2009 09:13-0400 Pulse (Heart Rate) 66 /min Olga Spears [facility] Internal Medicine Work Phone: Comment on above: Pattern: Regular 01-04-2009 09:13-0400 Respiratory Rate 16 /min Olga Spears [facility] Internal Medicine Work Phone: Comment on above: Pattern: Unlabored 07-02-2008 15:59-0500 BMI (Body Mass Index) 29.27 kg/m2 Olga Spears [facility] Internal Medicine Work Phone: 07-02-2008 15:59-0500 Body Temperature 96.9 [degF] Olga Spears [facility] Internal Medicine Work Phone: Comment on above: Method: Oral 07-02-2008 15:59-0500 Body weight 99.96 kg Olga Spears [facility] Internal Medicine Work Phone: 07-02-2008 15:59-0500 BP Diastolic 78 mm[Hg] [facility]: Comment on above: Patient Position: Sitting; Cuff Location : Left Arm; Cuff Size: Large 07-02-2008 15:59-0500 BP Systolic 128 mm[Hg] Olga Spears [facility] Internal Medicine Work Phone: Comment on above: Patient Position: Sitting; Cuff Location : Left Arm; Cuff Size: Large 07-02-2008 15:59-0500 BSA (Body Surface Area) 2.24 m2 Olga Spears [facility] Internal Medicine Work Phone: 07-02-2008 15:59-0500 Head Circumference 0 cm [facility] Phone: 07-02-2008 15:59-0500 Height 184.78 cm Olga Spears [facility] Internal Medicine Work Phone: 07-02-2008 15:59-0500 Pulse (Heart Rate) 64 /min Olga Spears [facility] Internal Medicine Work Phone: Comment on above: Pattern: Regular 07-02-2008 15:59-0500 Respiratory Rate 20 /min Olga Spears [facility] Internal Medicine Work Phone: Comment on above: Pattern: Unlabored 09-23-2007 13:21-0400 BMI (Body Mass Index) 29.27 kg/m2 Olga Spears [facility] Internal Medicine Work Phone: 09-23-2007 13:21-0400 Body weight 99.96 kg Olga Spears [facility] Internal Medicine Work Phone: 09-23-2007 13:21-0400 BP Diastolic 82 mm[Hg] Olga Spears [facility] Internal Medicine Work Phone: Comment on above: Patient Position: Sitting; Cuff Location : Right Arm; Cuff Size: Large 09-23-2007 13:21-0400 BP Systolic 128 mm[Hg] Olga Spears [facility] Internal Medicine Work Phone: Comment on above: Patient Position: Sitting; Cuff Location : Right Arm; Cuff Size: Large 09-23-2007 13:21-0400 BSA (Body Surface Area) 2.24 m2 Olga Spears [facility] Internal Medicine Work Phone: 09-23-2007 13:21-0400 Head Circumference 0 cm Olga Spears [facility] Internal Medicine Work Phone: 09-23-2007 13:21-0400 Height 184.78 cm Olga Spears [facility] Internal Medicine Work Phone: 09-23-2007 13:21-0400 Pulse (Heart Rate) 72 /min Olga Spears [facility] Internal Medicine Work Phone: Comment on above: Pattern: Regular 09-23-2007 13:21-0400 Respiratory Rate 16 /min Olga Spears [facility] Internal Medicine Work Phone: Comment on above: Pattern: Unlabored 09-05-2007 17:14-0400 BMI (Body Mass Index) 29.09 kg/m2 Olga Gardner [employer] [employer] [facility] Internal Medicine Work Phone: 09-05-2007 17:14-0400 Body Temperature 99.2 [degF] Olga Spears [facility] Internal Medicine Work Phone: Comment on above: Method: Oral 09-05-2007 17:14-0400 Body weight 99.34 kg Olga Spears [facility] Internal Medicine Work Phone: 09-05-2007 17:14-0400 BP Diastolic 76 mm[Hg] Olga Spears [facility] Internal Medicine Work Phone: Comment on above: Patient Position: Sitting; Cuff Location : Left Arm; Cuff Size: Standard 09-05-2007 17:14-0400 BP Systolic 122 mm[Hg] Olga Spears [facility] Internal Medicine Work Phone: Comment on above: Patient Position: Sitting; Cuff Location : Left Arm; Cuff Size: Standard 09-05-2007 17:14-0400 BSA (Body Surface Area) 2.23 m2 Olga Spears [facility] Internal Medicine Work Phone: 09-05-2007 17:14-0400 Head Circumference 0 cm Olga Spears [facility] Internal Medicine Work Phone: 09-05-2007 17:14-0400 Height 184.78 cm Olga Spears [facility] Internal Medicine Work Phone: 09-05-2007 17:14-0400 Pulse (Heart Rate) 72 /min Olga Spears [facility] Internal Medicine Work Phone: Comment on above: Pattern: Regular 09-05-2007 17:14-0400 Respiratory Rate 20 /min Olga Spears [facility] Internal Medicine Work Phone: Comment on above: Pattern: Unlabored 11-29-2006 14:39-0400 BMI (Body Mass Index) 29.09 kg/m2 Olga Gardner [employer] [facility] Internal Medicine Work Phone: 11-29-2006 14:39-0400 Body Temperature 97.9 [degF] Olga Spears [facility] Internal Medicine Work Phone: Comment on above: Method: Oral 11-29-2006 14:39-0400 Body weight 99.34 kg Olga Spears [facility] Internal Medicine Work Phone: 11-29-2006 14:39-0400 BP Diastolic 82 mm[Hg] Olga Spears [facility] Internal Medicine Work Phone: Comment on above: Patient Position: Sitting; Cuff Location : Left Arm; Cuff Size: Standard 11-29-2006 14:39-0400 BP Systolic 124 mm[Hg] Olga Spears [facility] Internal Medicine Work Phone: Comment on above: Patient Position: Sitting; Cuff Location : Left Arm; Cuff Size: Standard 11-29-2006 14:39-0400 BSA (Body Surface Area) 2.23 m2 Olga Spears [facility] Internal Medicine Work Phone: 11-29-2006 14:39-0400 Head Circumference 0 cm lOga Spears [facility] Work Phone: 11-29-2006 14:39-0400 Height 184.78 cm Olga Spears [facility] Internal Medicine Work Phone: 11-29-2006 14:39-0400 Pulse (Heart Rate) 88 /min Olga Spears [facility] Internal Medicine Work Phone: Comment on above: Pattern: Regular 11-29-2006 14:39-0400 Respiratory Rate 20 /min Olga Spears [facility] Internal Medicine Work Phone: Comment on above: Pattern: Unlabored 10-29-2006 12:04-0400 BMI (Body Mass Index) 29.76 kg/m2 Olga Spears [facility] Internal Medicine Work Phone: 10-29-2006 12:04-0400 Body Temperature 97.9 [degF] Olga Spears [facility] Internal Medicine Work Phone: Comment on above: Method: Oral 10-29-2006 12:04-0400 Body weight 101.61 kg Olga Spears [facility] Work Phone: 10-29-2006 12:04-0400 BP Diastolic 86 mm[Hg] Olga Spears [facility] Internal Medicine Work Phone: Comment on above: Patient Position: Sitting; Cuff Location : Left Arm; Cuff Size: Standard 10-29-2006 12:04-0400 BP Systolic 160 mm[Hg] Olga Spears [facility] Internal Medicine Work Phone: Comment on above: Patient Position: Sitting; Cuff Location : Left Arm; Cuff Size: Standard 10-29-2006 12:04-0400 BSA (Body Surface Area) 2.25 m2 Olga Spears [facility] Internal Medicine Work Phone: 10-29-2006 12:04-0400 Head Circumference 0 cm Olga Spears [facility] Medicine Work Phone: 10-29-2006 12:04-0400 Height 184.78 cm Olga Spears [facility] Medicine Work Phone: 10-29-2006 12:04-0400 Pulse (Heart Rate) 68 /min Olga Spears [facility] Internal Medicine Work Phone: Comment on above: Pattern: Regular 10-29-2006 12:04-0400 Respiratory Rate 16 /min Olga Spears [facility] Internal Medicine Work Phone: Comment on above: Pattern: Unlabored 04-23-2006 13:12-0400 Body Temperature 98.7 [degF] Olga Separs [facility] Internal Medicine Work Phone: Comment on above: Method: Undefined 04-23-2006 13:12-0400 Body weight 99.54 kg Olga Spears [facility] Internal Medicine Work Phone: 04-23-2006 13:12-0400 BP Diastolic 82 mm[Hg] Olga Spears [facility] Internal Medicine Work Phone: Comment on above: Patient Position: Sitting; Cuff Location : Right Arm; Cuff Size: Standard 04-23-2006 13:12-0400 BP Systolic 118 mm[Hg] Olga Spears [facility] Internal Medicine Work Phone: Comment on above: Patient Position: Sitting; Cuff Location : Right Arm; Cuff Size: Standard 04-23-2006 13:120400 Head Circumference 0 cm [facility] Work Phone: 04-23-2006 13:120400 Height 0 cm Olga Spears [facility] Medicine Work Phone: 04-23-2006 13:120400 Pulse (Heart Rate) 72 /min [facility] Work Phone: Comment on above: Pattern: Regular 04-23-2006 13:12-0400 Respiratory Rate 16 /min Olga Spears [facility] Internal Medicine Work Phone: Comment on above: Pattern: Undefined Encounters Encounter Date Encounter Type Care Provider Facility Start: 12-13-2024 End: 12-13-2024 Patient encounter procedure NEEDLEWORKER Payal Sesay -[facility] Work Phone: Start: 12-13-2024 End: 12-13-[address] Reema Myers MD Work Phone: [facility] Work Phone: Start: 10-23-2024 End: 10-23-2024 Patient encounter procedure Jacqueline Sullivan NEEDLEWORKER-C -Cat Scan [facility] Work Phone: Start: 10-23-2024 End: 10-23-2024 ambulatory [facility] Facility:[facility] Start: 09-26-2024 End: 09-26-2024 Emergency department patient visit [facility] Start: 08-30-[address] Gloira Coleman MD -[facility] Start: 08-30-2024 End: 08-30-[address] Tamie Coleman MD -[facility] Work Phone: Start: 08-30-2024 End: 08-30-2024 ambulatory [facility] Facility:[facility] Start: 08-16-2024 End: 08-16-2024 Patient encounter procedure Buck Larsen PA -Laboratory Work Phone: Start: 08-16-2024 End: 08-16-2024 ambulatory Reema Miedel Facility:[facility] Start: 08-09-2024 End: 08-09-2024 ambulatory Reema Miedel Facility:[facility] Start: 07-10-2024 ambulatory Reema Miedel Facility: [facility] Start: 06-15-2024 End: 06-15-2024 ambulatory Tariq Chet Facility:[facility] Start: 06-06-2024 End: 06-06-2024 ambulatory Reema Miedel Facility:[facility] Start: 05-18-2024 End: 05-18-2024 ambulatory Reema Miedel Facility:[facility] Start: 05-08-2024 End: 05-08-2024 ambulatory Reema Miedel Facility:[facility] Start: 04-13-2024 ambulatory Reema Miedel Facility: [facility] Start: 04-12-2024 End: 04-12-2024 ambulatory Reema Miedel Facility:[facility] Start: 04-10-2024 End: 04-10-2024 ambulatory Reema Miedel Facility:[facility] Start: 04-04-2024 End: 04-04-2024 ambulatory Reema Miedel Facility:[facility] Start: 03-02-2024 End: 03-02-2024 ambulatory Reema Miedel Facility:[facility] Start: 02-10-2024 End: 02-10-2024 ambulatory Reema Miedel Facility:[facility] Start: 02-02-2024 End: 02-02-2024 ambulatory Reema Miedel Facility:[facility] Start: 01-24-2024 End: 01-24-2024 ambulatory Reema Miedel Facility:[facility] Start: 01-10-2024 End: 01-10-2024 ambulatory Reema Miedel Facility:[facility] Start: 12-23-2023 End: 12-23-2023 ambulatory Kaushal Matheus Facility:[facility] Start: 11-06-2023 Non-patient / Non-visit Dr. Reema Myers Work Phone: [facility] Work Phone: Start: 11-05-2023 Non-patient / Non-visit Dr. Reema Myers Work Phone: [facility] Work Phone: Start: 11-05-2023 Non-patient / Non-visit Dr. Reema Myers Work Phone: [facility] Start: 11-04-2023 Non-patient / Non-visit Dr. Reema Myers Work Phone: [facility] Start: 11-04-2023 End: 11-06-2023 Evaluation and management of inpatient [facility] Work Phone: Start: 11-01-2023 End: 11-01-[address] Reema Myers Work Phone: [facility] Work Phone: Start: 11-01-2023 End: 11-01-[address] Reema Myers Work Phone: [facility]-Sleep Lab Work Phone: Start: 10-21-2023 Non-patient / Non-visit Dr. Reema Myers Work Phone: [facility] Start: 10-21-2023 End: 10-21-[address] Reema Myers Work Phone: [facility] Work Phone: Start: 10-21-2023 End: 10-21-[address] [facility] Work [facility]: Start: 10-20-2023 Non-patient / Non-visit Dr. Reema Myers Work Phone: [facility] Start: 10-20-2023 End: 10-20-2023 Admission to same day surgery center Dr. Reema Myers Work Phone: [facility]-Endoscopy Work Phone: Start: 10-20-2023 End: 10-20-[address] Reema Myers Work Phone: [facility] Work Phone: Start: 09-29-2023 End: 09-29-[address] Reema Myers Work Phone: [facility] Work Phone: Start: 09-27-2023 End: 09-27-[address] Reema Myers Work Phone: [facility] Work Phone: Start: 09-27-2023 End: 09-27-[address] Reema Myers Work Phone: [facility]-Sleep Lab Work Phone: Start: 09-17-2023 End: 09-17-[address] Reema Myers Work Phone: [facility] Work Phone: Start: 09-17-2023 End: 09-17-[address] Reema Myers Work Phone: [facility] Work Phone: Start: 09-13-2023 End: 09-13-[address] Reema Myers Work Phone: [facility] Work Phone: Start: 09-13-2023 End: 09-13-[address] Reema Myers Work Phone: [facility]-Laboratory, Specimen Work Phone: Start: 09-10-2023 End: 09-10-[address] Reema Myers Work Phone: [facility] Work Phone: Start: 09-10-2023 End: 09-10-[address] Reema Myers Work Phone: [facility]-Sleep Lab Work Phone: Start: 09-09-2023 End: 09-09-[address] Reema Myers Work Phone: [facility] Work Phone: Start: 09-09-2023 End: 09-09-[address] Reema Myers Work Phone: [facility]-Laboratory Work Phone: Start: 08-20-2023 End: 08-20-[address] Reema Myers Work Phone: [facility] Work Phone: Start: 08-20-2023 End: 08-20-[address] Reema Myers Work Phone: [facility]-Sleep Lab Work Phone: Start: 08-13-2023 End: 08-13-[address] Reema Myers Work Phone: [facility] [place] Work Phone: Start: 07-09-2023 End: 07-09-[address] Reema Myers Work Phone: [facility] Work Phone: Start: 07-09-2023 End: 07-09-[address] Reema Myers Work Phone: [facility]-Cat Scan, [facility] Work Phone: Start: 07-01-2023 End: 07-01-[address] Reema Myers Work Phone: [facility]-Pulmonary Medicine [facility] Work Phone: Start: 06-30-2023 Non-patient / Non-visit Dr. Reema Myers Work Phone: [facility] Start: 06-29-2023 End: 06-29-[address] Reema Myers Work Phone: [facility] Work Phone: Start: 06-29-2023 End: 06-29-[address] Reema Myers Work Phone: [facility]-Pulmonary Services/Neurology Work Phone: Start: 06-27-2023 Non-patient / Non-visit Dr. Reema Myers Work Phone: [facility] Start: 06-25-2023 End: 06-25-[address] Reema Myers Work Phone: [facility] Work Phone: Start: 06-25-2023 End: 06-25-[address] Reema Myers Work Phone: [facility]-Pulmonary Services/Neurology Work Phone: Start: 06-24-2023 End: 06-24-[address] Reema Myers Work Phone: [facility] Work Phone: Start: 06-24-2023 End: 06-24-[address] Reema Myers Work Phone: [facility]-Radiology, [facility] Work Phone: Start: 02-04-2023 End: 02-04-[address] Reema Myers Work Phone: [facility] Work Phone: Start: 02-04-2023 End: 02-04-[address] Reema Myers Work Phone: [facility] Work Phone: Start: 02-02-2023 End: 02-02-[address] Reema Myers Work Phone: [facility]-Laboratory Work Phone: Start: 11-26-2022 End: 11-26-[address] Reema Myers Work Phone: [facility] Work Phone: Start: 05-27-2022 Non-patient / Non-visit Dr. Reema Myers Work Phone: [facility] Start: 05-27-2022 End: 05-27-2022 Admission to same day surgery center Dr. Reema Myers Work Phone: [facility]-Farm Worker/Special Procedures Start: 05-27-2022 End: 05-27-[address] Reema Myers Work Phone: [facility] Work Phone: Start: 05-25-2022 Non-patient / Non-visit Dr. Reema Myers Work Phone: [facility] Start: 05-13-2022 End: 05-13-[address] Reema Myers Work Phone: [facility] Start: 05-06-2022 Non-patient / Non-visit Dr. Reema Myers Work Phone: [facility] Start: 05-06-2022 Non-patient / Non-visit Dr. Reema Myers Work Phone: [facility] Start: 05-06-2022 End: 05-06-2022 Admission to same day surgery center [facility] Start: 05-06-2022 End: 05-06-[address] Reema Myers Work Phone: [facility] Work Phone: Start: 04-09-2022 End: 04-09-[address] Reema Myers Work Phone: [facility] Start: 02-09-2022 End: 02-09-[address] Reema Myers Work Phone: [facility] Start: 02-02-2022 Non-patient / Non-visit Dr. Reema Myers Work Phone: [facility] Start: 02-02-2022 End: 02-02-2022 Admission to same day surgery center [facility] Reema Myers [facility] Start: 01-26-2022 End: 01-26-[address] Reema Myers Work Phone: [facility] Start: 11-13-2021 Non-patient / Non-visit Dr. Reema Myers Work Phone: [facility] Start: 11-13-2021 End: 11-13-[address] Reema Myers Work Phone: [facility]-Cardiovascular Services Start: 10-31-2021 End: 10-31-[address] Reema Myers Work Phone: [facility] Start: 10-30-2021 Non-patient / Non-visit Dr. Reema Myers Work Phone: [facility] Start: 05-20-2015 End: 05-20-2015 Office outpatient visit 25 minutes Olga Roberts [facility] Start: 01-18-2015 End: 01-26-2015 Office outpatient visit 5 minutes Olga Roberts [facility] Start: 01-16-2015 End: 01-16-2015 Office outpatient visit 25 minutes Olga Roberts [facility] Start: 07-18-2014 End: 07-18-2014 Office outpatient visit 25 minutes Olga Roberts [facility] Start: 04-13-2013 End: 04-13-2013 Phone Encounter Olga Roberts Ob/Gyn Physician al Medicine Start: 04-12-2013 End: 04-12-2013 Phone Encounter Olga Roberts [facility]/G[facility] Physician al Medicine Start: 04-07-2013 End: 04-07-2013 Patient encounter procedure Olga Roberts [facility] Start: 10-04-2012 End: 10-04-2012 Patient encounter procedure Olga Roberts [facility] Start: 02-05-2012 End: 02-05-2012 Patient encounter procedure Olga Roberts [facility] Start: 06-12-2011 End: 06-12-2011 Patient encounter procedure Olga Roberts [facility] Start: 06-01-2011 End: 06-01-2011 Annotation/Addendum Olga Roberts [facility] Physician [facility] Medicine Start: 06-01-2011 End: 06-01-2011 Office outpatient visit 15 minutes Olga Roberts [facility] Start: 10-27-2010 End: 10-27-2010 Patient encounter procedure Olga Roberts [facility] Start: 08-28-2010 End: 08-28-2010 Patient encounter procedure Olga Roberts [facility] Start: 04-25-2010 End: 04-25-2010 Patient encounter procedure Olga Roberts [facility] Start: 01-10-2010 End: 01-10-2010 Patient encounter procedure Olga Roberts [facility] Start: 10-25-2009 End: 10-25-2009 Patient encounter procedure Olga Spears [facility] Start: 04-25-2009 End: 04-25-2009 Patient encounter procedure Olga Spears [facility] Start: 03-01-2009 End: 03-01-2009 Office outpatient visit 25 minutes Olgaannette Perezon [facility] Start: 02-22-2009 End: 02-22-2009 Office outpatient visit 10 minutes Olga Tory [facility] Start: 02-18-2009 End: 02-18-2009 Office outpatient visit 25 minutes Olga Spears [facility] Start: 01-21-2009 End: 01-21-2009 Historical Summary Olga Tory [facility]/Gyn Physician al Medicine Start: 01-21-2009 End: 01-21-2009 Office outpatient visit 15 minutes Olgaannette Perezon [facility] Start: 01-04-2009 End: 01-07-2009 Patient encounter procedure Olgaannette Perezon [facility] Start: 07-02-2008 End: 07-02-2008 Patient encounter procedure Olga Perezon [facility] Start: 09-23-2007 End: 09-23-2007 Office outpatient visit 25 minutes Olgaannette Perezon [facility] Start: 09-05-2007 End: 09-05-2007 Patient encounter procedure Olgaannette Perezon [facility] Start: 04-12-2007 End: 04-12-2007 Historical Summary Olga Tory [facility]/Gyn Physician al Medicine Start: 11-29-2006 End: 11-29-2006 Office outpatient visit 10 minutes Olga Tory [facility] Start: 11-25-2006 End: 11-25-2006 Historical Summary Olga Spears [facility] Ob/Gyn Physician al Medicine Start: 10-29-2006 End: 10-31-2006 Office outpatient visit 25 minutes Olga Tory [facility] Start: 04-23-2006 End: 04-23-2006 Office outpatient visit 25 minutes Olga Tory [facility] Start: 03-23-2006 End: 03-23-2006 Historical Summary Olga Spears [facility] Ob/Gyn Physician al Medicine Procedures Date Procedure Procedure Detail Performing Clinician Start: 10-23-2024 CT of chest without contrast Dr. Reema Myers MD Work Phone: Start: 08-30-[address] fraction Dr. Reema Myers MD Work Phone: Start: 08-30-2024 Total iron binding capacity measurement Dr. Reema Myers MD Work Phone: Start: 11-05-[address] Reema Myers Work Phone: Start: 11-04-2023 Measurement of occul t blood in stool specimen using immunoassay Dr. Reema Myers Work Phone: Start: 11-04-2023 Plain chest X-ray Dr. Quinton Myers Work Phone: Start: 10-20-[address] Reema Myers Work Phone: Start: 09-17-2023 CT of chest without contrast Dr. Reema Myers Work Phone: Start: 09-13-2023 Measurement of occul t blood in stool specimen using immunoassay Dr. Reema Myers Work Phone: Start: 09-09-2023 Plain chest X-ray Dr. Quinton Myers Work Phone: Start: 07-09-[address] Reema Myers Work Phone: Start: 06-24-2023 Plain chest X-ray Dr. Quinton Myers Work Phone: Start: 02-04-2023 Plain chest X-ray Dr. Quinton Myers Work Phone: Start: 01-30-2022 Plain chest X-ray Dr. Quinton Myers Work Phone: Start: 12-17-2017 End: 12-18-2017 Kidney and Bladder Comments: See Note; NOTES: [facility] Imaging Services [address] [place] [address] Kidney and Bladder MR#: [id number] Acct: [id number] Name: ANJUM SERRANO Rep #: [id number] : [id number] M [id number] From: Roni Hackett DO PCP: Olga Spears DO Status: REG CLI Study: Kidney and Bladder Date of Exam: 12/17/17 Exam# [id number] Ordering Dr: Grecia Swain NEEDLEWORKER-C STUDY: RENAL ULTRASOUND - COMPLETE REASON FOR [...] a large postvoid residual. Electronically Signed: Roni HackettDO at 10:08 EDT Tel , Service support , CC: Olga Spears DO; Gercia Swain NP Grocery Department Manager: Signed Olga Tory Work Phone: Start: 08-31-2015 End: 08-31-2015 Operative Report Comments: See Note; NOTES: [facility] Medical Records Department [address] [place] [id number] Operative Report MR#: [id number] Acct: [id number] Name: ANJUM SERRANO Rep #: [id number] : 1945 70 From: Almas Villegas MD PCP: Olga Spears DO Status: REG [facility] DATE OF SERVICE: 08/30/2015 DATE [...] filled with water-soluble lubricant, dilated to 28 Senegalese and then a 26-Senegalese resectoscopic sheath was inserted. Then, using the [...] condition. Almas Villegas MD T: NTS JOB: [id number] 08/31/15 1155 <Electronically signed by Almas Villegas MD> Date Almas Villegas MD Cosigner Signature (If Indicated): Date CC: Olga Spears DO; Almas Villegas MD Date Dictated: 08/30/15 132 Date Transcribed: 08/30/151325 Grocery Department Manager: Signed Olga Spears Start: 08-31-2015 End: 08-31-2015 Discharge Instruction Comments: See Note; NOTES: [facility] Medical Records Department [address] [place] [address] Instructions for Home/Discharge Instructions 08/31/15 1150 MR#: [id number] Acct: [id number] Name: ANJUM SERRANO Rep #: [id number] : 1945 70 From: Almas Villegas MD PCP: Olga Spears DO Status: REG [facility] Discharge Diet: No Restrictions - [...] Please Follow Up With: Almas Villegas - [phone] When: CALL SOON FOR AN APPT IN ABOUT 2 WKS, NO CHANGES, ADDITIONS TO HOME MEDS 08/31/15 1154 <Electronically signed by Almas Villegas MD> Date Almas Villegas MD CC: Olga Martini Start: 08-26-2015 End: 08-26-2015 12 lead ECG Comments: See Note; NOTES: [facility] Cardiovascular Services [address] [place] [address] EKG - SDC 08/23/15 1425 MR#: [id number] Acct: [id number] Name: ANJUM SERRANO Rep #: [id number] : 1945 70 From: Almas Rodriguez MD Attending Dr: Almas Villegas MD Status: PRE [facility] Ordering Dr: Almas Villegas MD Date: 08/23/15 Location: [facility] Sex: M C Admitted: Test Reason : Blood Pressure : / mmHG Vent. Rate : 058 BPM Atrial Rate : 058 BPM P-R Int : 192 ms QRS Dur : 098 ms QT Int : 408 ms P-R-T Axes : 045 066 062 degrees QTc Int : 400 ms Sinus bradycardia Otherwise normal ECG Confirmed by KARI VELASQUEZ, ALMAS ([id number]), assistant production editor GIDEON MESA ([id number]) on 08/26/2015 1:30:14 PM Referred By: RODOLFO VILLEGAS Confirmed By:ALMAS RODRIGUEZ MD 08/26/15 9800 Date Almas Rodriguez MD CC: Olga Spears DO; Almas Rodriguez MD Date Dictated: 08/23/151424 Date Transcribed: 08/23/151424 Grocery Department Manager: Signed Olga Spears Work Phone: Start: 01-16-2015 End: 01-16-2015 Spmtry w/vc expiratory keira w/wo mxml vol vntj _ Olga Spears Work Phone: Comment on above: obtruction present Start: 07-18-2014 End: 07-18-2014 Spmtry w/vc expiratory keira w/wo mxml vol vntj _ Olga Spears Work Phone: Comment on above: mild obstruction - a sx Sigmoidoscopy Sigmoidoscopy Olga espinoza Comment on above: 1999 Plan of Treatment Date Care Activity Detail Author Start: 12-25-2024 ambulatory Ambulatory Facility:[facility] Start: 11-06-2023 Patient discharge [facility] Start: 11-05-2023 Referral to occupati onal therapist [facility] Start: 11-05-2023 Referral to service [facility] Start: 11-05-2023 Colonoscopy Colonoscopy,EG D (Not Applicable) [facility] Start: 11-05-2023 Partial thromboplast in time, activated [facility] Start: 11-05-2023 Prothrombin time [facility] Start: 11-05-[address] [facility] Start: 11-05-2023 Application of intermittent pneumatic compression device [facility] Start: 11-04-2023 Following clinical pathway protocol [facility] Start: 11-04-2023 Transfusion of blood product [facility] Start: 11-04-2023 Consultation [facility] Start: 11-04-2023 Ambulation without limitation [facility] Start: 11-04-2023 Following clinical pathway protocol [facility] Start: 11-04-2023 Incentive spirometry [facility] Start: 11-04-2023 Inhalation therapy procedure [facility] Start: 11-04-2023 Introduction of urin prosper catheter [facility] Start: 11-04-2023 Taking patient vital signs [facility] Start: 11-04-2023 [facility] Start: 11-04-2023 Administration of bl ood product [facility] Start: 11-04-2023 Leukocyte reduced re d blood cells [facility] Start: 11-04-2023 End: 11-04-[address] [facility] Start: 11-04-2023 Admission procedure [facility] Start: 11-04-2023 End: 11-04-2023 Administration of blood product [facility] Start: 10-20-2023 Colonoscopy w/biopsy single/multiple COLONOSCOPY AND BIOPSY [facility] Start: 10-20-2023 Colsc flx w/rmvl of tumor polyp lesion snare tq COLONOSCOPY W/LESION REMOVAL [facility] Start: 10-20-2023 Egd transoral biopsy single/multiple EGD BIOPSY SINGLE/MULTIPLE [facility] Start: 10-20-2023 Patient discharge [facility] Start: 05-20-2015 Patient Education Flu (Influen za) *: flu shot [facility] Work Phone: Start: 05-20-2015 Provider Instruction s for Treatment [facility] Work Phone: Start: 05-20-2015 Assay of prostate specific antigen total PSA (PROSTATE SPECIFIC ANTIGEN) (V76.44) [facility] Work Phone: Start: 05-20-2015 Lipid panel LIPID PANEL (20506) [facility] Work Phone: Start: 05-20-2015 TSH Qn TSH (03641) [facility] Work Phone: Start: 05-20-2015 Urnls dip stick/tabl et reagent auto microscopy URINALYSIS, W/ MICRO (23890) [facility] Work Phone: Start: 05-20-2015 Urine albumin quantitative MICROALBUMIN: CREATININE RATIO (61921) AND (99700) [facility] Work Phone: Start: 05-20-2015 Comprehensive metabo lic panel METABOLIC PANEL, COMPREHENSIVE (13852) [facility] Work Phone: Start: 05-20-2015 Blood count complete auto&auto difrntl wbc CBC W/AUTO DIFF WBC (21490) [facility] Work Phone: Start: 01-26-2015 Provider Instruction s for Treatment *Colon Cancer Screening [facility] Work Phone: Start: 01-16-2015 TSH Qn TSH (62293) [facility] Work Phone: Start: 01-16-2015 Urnls dip stick/tabl et reagent auto microscopy URINALYSIS, W/ MICRO (81403) [facility] Work Phone: Start: 01-16-2015 Urine albumin quantitative MICROALBUMIN: CREATININE RATIO (70216) AND (71985) [facility] Work Phone: Start: 01-16-2015 Comprehensive metabo lic panel METABOLIC PANEL, COMPREHENSIVE (52629) [facility] Work Phone: Start: 01-16-2015 Lipid panel LIPID PANEL (92472) [facility] Work Phone: Start: 01-16-2015 Blood count complete auto&auto difrntl wbc CBC W/AUTO DIFF WBC (62374) [facility] Work Phone: Start: 01-16-2015 Patient Education Chronic Obst ructive Pulmonary Disease (COPD) *: chronic obstructive pulmonary disease [facility] Work Phone: Start: 01-16-2015 Procedure Education Eprescribe d prescriptions (G8553) [facility] Work Phone: Start: 01-16-2015 Provider Instruction s for Treatment [facility] Work Phone: Start: 07-18-2014 Provider Instruction s for Treatment [facility] Work Phone: Start: 07-18-2014 TSH Qn TSH (06768) [facility] Work Phone: Start: 07-18-2014 Urnls dip stick/tabl et reagent auto microscopy URINALYSIS, W/ MICRO (69768) [facility] Work Phone: Start: 07-18-2014 Urine albumin quantitative MICROALBUMIN: CREATININE RATIO (62281) AND (47809) [facility] Work Phone: Start: 07-18-2014 Comprehensive metabo lic panel METABOLIC PANEL, COMPREHENSIVE (03765) [facility] Work Phone: Start: 07-18-2014 Lipid panel LIPID PANEL (83118) [facility] Work Phone: Start: 07-18-2014 Blood count complete auto&auto difrntl wbc CBC W/AUTO DIFF WBC (33525) [facility] Work Phone: Start: 07-18-2014 Blood occult fecal h gb deter ia qual feces 1-3 FECAL OCCULT- Tubes sent home (54328) [facility] Work Phone: Start: 07-18-2014 Assay of prostate specific antigen total PSA (PROSTATE SPECIFIC ANTIGEN) (V76.44) [facility] Work Phone: Start: 04-13-2013 PSA TOTAL +%FREE [phone] (12639) PSA TOTAL +%FREE 109344 (73740) [facility] Work Phone: Start: 04-12-2013 Lipid panel Lipid Panel (68072) [facility] Work Phone: Start: 04-07-2013 Patient Education Flu (Influen za) *: flu shot [facility] Work Phone: Start: 04-07-2013 Provider Instruction s for Treatment [facility] Work Phone: Start: 04-07-2013 Blood occult fecal h gb deter ia qual feces 1-3 FECAL OCCULT- Tubes sent home (63190) [facility] Work Phone: Start: 10-04-2012 Patient Education Blood Pressu re: high blood pressure [facility] Work Phone: Start: 10-04-2012 Provider Instruction s for Treatment [facility] Work Phone: Start: 02-05-2012 Provider Instruction s for Treatment [facility] Work Phone: Start: 06-12-2011 Provider Instruction s for Treatment [facility] Work Phone: Start: 06-12-2011 Assay of prostate specific antigen total PSA (PROSTATE SPECIFIC ANTIGEN) (V76.44) [facility] Work Phone: Start: 11-06-2010 Hepatic function panel HEPATIC FUNCTION PANEL (80598) [facility] Work Phone: Start: 11-06-2010 Lipid panel LIPID PANEL (97054) [facility] Work Phone: Start: 10-27-2010 Provider Instruction s for Treatment *Antibiotic Usage Education - Male [facility] Work Phone: Start: 08-28-2010 Provider Instruction s for Treatment [facility] Work Phone: Start: 04-25-2010 Provider Instruction s for Treatment [facility] Work Phone: Start: 04-25-2010 Assay of prostate specific antigen total PSA (PROSTATE SPECIFIC ANTIGEN) (V76.44) [facility] Work Phone: Start: 04-25-2010 TSH Qn TSH (63068) [facility] Work Phone: Start: 04-25-2010 Urnls dip stick/tabl et reagent auto microscopy URINALYSIS, W/ MICRO (10088) [facility] Work Phone: Start: 04-25-2010 Urine albumin quantitative MICROALBUMIN: CREATININE RATIO (82509) AND (08599) [facility] Work Phone: Start: 04-25-2010 Comprehensive metabo lic panel METABOLIC PANEL, COMPREHENSIVE (91711) [facility] Work Phone: Start: 04-25-2010 Blood count manual c ell count each CBC WITH MANUAL DIFF (28271) [facility] Work Phone: Start: 04-25-2010 Lipid panel LIPID PANEL (18854) [facility] Work Phone: Start: 01-10-2010 Provider Instruction s for Treatment [facility] Work Phone: Start: 01-10-2010 Lipid panel LIPID PANEL (78112) [facility] Work Phone: Comment on above: DO IN 6 MONTHS Start: 10-25-2009 Provider Instruction s for Treatment [facility] Work Phone: Start: 10-25-2009 TSH Qn TSH (35658) [facility] Work Phone: Start: 10-25-2009 Urnls dip stick/tabl et reagent auto microscopy URINALYSIS, W/ MICRO (31277) [facility] Work Phone: Start: 10-25-2009 Urine albumin quantitative MICROALBUMIN: CREATININE RATIO (73877) AND (05730) [facility] Work Phone: Start: 10-25-2009 Comprehensive metabo lic panel METABOLIC PANEL, COMPREHENSIVE (77065) [facility] Work Phone: Start: 10-25-2009 Lipid panel LIPID PANEL (64136) [facility] Work Phone: Start: 10-25-2009 Blood count manual c ell count each CBC WITH MANUAL DIFF (70690) [facility] Work Phone: Start: 04-25-2009 Provider Instruction s for Treatment [facility] Work Phone: Start: 04-25-2009 Hepatic function panel HEPATIC FUNCTION PANEL (33432) [facility] Work Phone: Start: 04-25-2009 Lipid panel LIPID PANEL (90328) [facility] Work Phone: Comment on above: do in 3 months Start: 02-22-2009 Provider Instruction s for Treatment Reviewed Lab [facility] Work Phone: Start: 02-22-2009 Blood gases any combination ph pco2 po2 co2 hco3 BLOOD GAS PH PCO2 PO2 H/CO2 (ABG) (00396) [facility] Work Phone: Start: 07-02-2008 Provider Instruction s for Treatment [facility] Work Phone: Start: 09-23-2007 Provider Instruction s for Treatment [facility] Work Phone: Start: 09-23-2007 TSH Qn TSH (68864) [facility] Work Phone: Start: 09-23-2007 Hepatic function panel HEPATIC FUNCTION PANEL (52757) [facility] Work Phone: Start: 09-23-2007 Lipid panel LIPID PANEL (13177) [facility] Work Phone: Start: 09-05-2007 Provider Instruction s for Treatment [facility] Work Phone: Start: 10-29-2006 Provider Instruction s for Treatment [facility] Work Phone: Start: 10-29-2006 Glucose [Mass/Vol] Glucose, PP /2 Hour (41269) [facility] Work Phone: Start: 04-23-2006 Assay of prostate specific antigen total PSA (PROSTATE SPECIFIC ANTIGEN) (23416) [facility] Work Phone: Start: 04-23-2006 TSH Qn TSH (65440) [facility] Work Phone: Start: 04-23-2006 Lipid panel LIPID PANEL (98270) [facility] Work Phone: Start: 04-23-2006 Hepatic function panel HEPATIC FUNCTION PANEL (35728) [facility] Work Phone: Anion gap measurement [facility] BUN/Creatinine ratio [facility] Calcium [Mass/volume ] in Serum or Plasma [facility] Carbon dioxide, tota l [Moles/volume] in Serum or Plasma [facility] Cardioversion [facility] Work Phone: CBC W Auto Different ial panel - Blood [facility] Chloride [Moles/volu me] in Serum or Plasma [facility] Colonoscopy [facility] Creatinine [Moles/volume] in Serum or Plasma [facility] CT Chest [facility] CT Chest WO contrast [facility] Erythrocyte mean corpuscular volume determination [facility] Glucose [Mass/volume ] in Serum or Plasma [facility] Hematocrit [Volume Fraction] of Blood [facility] Hematocrit [Volume Fraction] of Blood [facility] Hemoglobin [Mass/vol ume] in Blood [facility] Hemoglobin [Mass/vol ume] in Blood [facility] INR in Blood by Coagulation assay [facility] Leukocytes [#/volume ] in Blood [facility] Mean corpuscular hemoglobin concentration determination [facility] Mean corpuscular hemoglobin determination [facility] Measurement of renal function [facility] Neutrophil count [facility] Neutrophil percent differential count [facility] Patient referral [facility] Work Phone: Platelets [#/volume] in Blood [facility] Potassium [Moles/vol ume] in Serum or Plasma [facility] Red blood cell count [facility] Red cell distributio n width determination [facility] Sodium [Moles/volume ] in Serum or Plasma [facility] Urea nitrogen [Mass/volume] in Serum or Plasma [facility] Work Phone: [facility] Work Phone: [facility] Work Phone: [facility] Work Phone: [facility] Work Phone: [facility] Work Phone[facility] Work Phone: [facility] Work Phone: [facility] Work Phone: [facility] Work Phone: [facility] Work Phone: [facility] Work Phone: [facility] Work Phone: [facility] Work Phone: [facility] Work Phone: [facility] Work Phone: [facility] Work Phone: [facility] Work Phone: [facility] Work Phone[facility] Work Phone: [facility] Work Phone: [facility] Work Phone: [facility] Work Phone: [facility] Immunizations Immunization Date Immunization Notes Care Provider Fa vincent 05-11-2023 Covid (Spikevax) Dr. Reema Myers Work Phone: [facility] 05-11-2023 RSV Adult BiValent (Abrysvo) Dr. Reema Myers Work Phone: [facility] 03-25-2023 Influenza High-Dose Quadrivalent Dr. Reema Myers Work Phone: [facility] 04-22-2022 Covid Pfizer Bivalen t Booster Dr. Reema Myers Work Phone: [facility] 04-07-2022 influenza, injectabl e, quadrivalent, preservative free Dr. Reema Myers Work Phone: [facility] 10-27-2021 Covid (Pfizer) Dr. Reema cervantes Work Phone: [facility] 03-27-2021 Covid (Pfizer) Dr. Reema cervantes Work Phone: [facility] 08-21-2020 Covid (Pfizer) Dr. Reema cervantes Work Phone: [facility] 08-02-2020 Covid (Pfizer) Dr. Reema cervantes Work Phone: [facility] 08-01-2019 Influenza, high dose seasonal Dr. Reema Myers MD Work Phone: [facility] 08-01-2019 influenza, high dose seasonal, preservative-free Dr. Reema Myers Work Phone: [facility] 07-04-2009 novel [id number], preservative-free, injectable Dr. Reema Myers Work Phone: [facility] 03-01-2009 influenza, seasonal, injectable Olga Spears [facility] Work Phone: Comment on above: Given in right delto idLot # [id number] 10/2009[facility] Payers Date Payer Category Payer Unknown [id number] 18 2023 Self-pay [id number] 2023 Unknown [id number] 2008 Medicare [id number] 1945 Unknown [id number] 2.16. [id number] Unknown Unknown [id number] Unknown [id number] 2.16.8 40.1.463982.3.579.2.462 Unknown [id number] 2.16.8 40.1.260881.3.579.2.462 Unknown [id number] 2.16.8 40.1.189703.3.579.2.462 Unknown [id number] 2.16.8 40.1.134783.3.579.2.462 Unknown [id number] 2.16.8 40.1.942664.3.579.2.462 Unknown [id number] 2.16.8 40.1.045854.3.579.2.462 Unknown [id number] 2.16.8 40.1.929921.3.579.2.462 Unknown [id number] 2.16.8 40.1.158804.3.579.2.462 Unknown [id number] 2.16.8 40.1.745840.3.579.2.462 Unknown [id number] 2.16.8 40.1.804289.3.579.2.462 Unknown [id number] 2.16.8 40.1.459263.3.579.2.462 Unknown [id number] 2.16.8 40.1.736630.3.579.2.462 Unknown [id number] 2.16.8 40.1.721337.3.579.2.462 Unknown [id number] 2.16.8 40.1.122657.3.579.2.462 Unknown [id number] 2.16.8 40.1.303425.3.579.2.462 Unknown [id number] 2.16.8 40.1.954273.3.579.2.462 Unknown [id number] 2.16.8 40.1.531001.3.579.2.462 Unknown [id number] 2.16.8 40.1.223626.3.579.2.462 Unknown [id number] 2.16.8 40.1.955971.3.579.2.462 Unknown [id number] 2.16.8 40.1.215784.3.579.2.462 Unknown [id number] 2.16.8 40.1.045472.3.579.2.462 Unknown [id number] 2.16.8 40.1.509422.3.579.2.462 Unknown [id number] 2.16.8 40.1.656160.3.579.2.462 Social History Date Type Detail Facility Alcohol Use [facility] Work Phone: Comment on above: Drinks wine, Drinks beer. 1 glass wine with dinner and couple beers a week 6-8 cups coffee qd Self-employed Inactive , lives with spouse Smokes < 1 pack of c igarettes per day, recently fell off the wagon started again 01-04-09 Tobacco use: Tobacco use: [facility] Work Phone: Comment on above: 06/12/11 Start: 10-31-2021 End: 11-04-2023 Tobacco smoking status NHIS Unknown if ever smoked [facility] Start: 05-31-2019 Cigarettes [facility] Start: 1945 Sex Assigned At Male W [facility] Start: 08-09-2024 Tobacco smoking stat us NHIS Ex-smoker (finding) [facility] Medical Equipment Procedure Code Equipment Code Equipment Origin al Text Equipment Identifier Dates Blood Sugar Diagnostic (Onetouch Verio Test Strips) strip Start: 07-10-2024 End: 07-10-2024 Goals Date Patient Goal Desired Activity /State Functional Status Date Assessment Result Facility 11-06-2023 [facility]: 11-05-2023 Functional status Ambulates;Bedside [facility] Work Phone: Mental Status Date Assessment Result Facility 11-06-2023 Cognitive function Appropriate;[facility] Work Phone: 11-04-2023 Cognitive function Appropriate;[facility] Work Phone: 10-20-2023 Cognitive function Voice/Name [facility] Work Phone: Clinical Notes 03-14-2021 to 08-30-2024 Note Date & Type Note Facility 08-30-2024 Evaluation note Diagnosis Onset Date Resolution Iron deficiency anemia due to chronic blood loss chronic August 30, 2024 1:01pm Central sleep apnea acute December 13, 2024 2:06pm Lung nodule acute December 13 2:06pm COPD (chronic obstructive pulmonary disease) chronic December 13, 2024 2:06pm [facility] Work Phone: 1(637) 475-662905-11-2024 Progress note Author Amber Fang [facility] November 06, 2023 11:23am Note Date/Time November 06, 2023 11:24 am [facility] Medical Records Department [address] [place] [address] Progress Note - Hospitalist 11/06/23 1116 MR#: [id number] Acct: [id number] Name: ANJUM SERRANO Rep #:[id number] : 1945 78 From: Amber Fang DO PCP: Dr. Reema Myers MD Status:ADM IN Location: [place] [id number] Reason for Visit Reason for Visit: Shortness of breath Subjective Subjective No complaints at this time. Nursing is at the bedside and notes his blood pressure is systolic 107 and he has metoprolol 50 mg do. At this point the patient states he is unclear why he is on 50 mg. He is not sure why his prescription benefit specialist increase the dose. I reviewed the most recent cardiology note and there was no indication that the dose was to be increased. The patient states that he had not been having elevated blood pressure or heart rate issues and the most recentcardiology note reflects this. I will go ahead and decrease his metoprolol to 25 mg daily and I did discuss this with Dr. Moore so the discharge dose of metoprolol should be 25 mg. Objective Data Objective Data Vital Signs: Vital Signs Temp Pulse Resp BP Pulse Ox O2 Del Method O2 Flow Rate 98.3 F 75 16 104/80 98 Room Air 2 11/06/23 09:00 11/06/23 09:00 11/06/23 09:00 11/06/23 09:00 11/06/23 09:00 11/06/23 09:00 11/04/23 21:38 Oxygen Flow Rate (L/min) 2 Oxygen Delivery Method Room Air Weight: 109 kg Body Mass Index (BMI) 31.6 Intake & Output: Intake and Output for Last 24 Hours 11/04/23 11/05/23 11/06/23 23:59 23:59 23:59 Intake Total 2402 4200.00 / 4200.00 Output Total 1200 / 1200 Balance 1902 3000.00 / 3000.00 Lab / Micro Data 11/06/23 06:11 11/05/23 07:20 Labs: Laboratory Results - last 24 hr 11/04/23 13:45: Diff Path Review Reviewed 11/06/23 06:11: WBC 5.0, RBC 2.52 L, Hgb 7.0 L, Hct 23.3 L, MCV 92.5, MCH 27.8, MCHC 30.0 L, RDW Std Deviation 57.5 H, RDW Coeff of Christina 17.1 H, Plt Count 132 L,MPV 10.6, Neut % (Auto) Not Reportable, Absolute Neuts (auto) 2.4, Absolute Lymphs (auto) 1.00, Total Counted 100, Neutrophils % (Manual) 48, Lymphocytes % (Manual) 20, Monocytes % (Manual) 8, Eosinophils % (Manual) 7 H, Basophils % (Manual) 1, Metamyelocytes % 5 H, Myelocytes % 11 H, Diff Path Review October foll, Platelet Estimate SLT DEC, Polychromasia 2+, Anisocytosis 2+, Ovalocytes 2+, Stomatocytes RARE Micro: Microbiology 11/04/23 12:48 Stool Stool Occult Blood (FANNY) - Final Occult Blood Positive Physical Exam Const alert, oriented x3, no apparent distress, healthy appearing and well nourished; Negative for average body habitus Constitutional Narrative: Elderly, obese, white male, sitting up on the edge of the bed, appears comfortable, nontoxic, nursing at bedside HEENT normocephalic, head/scalp atraumatic, hearing grossly normal bilaterally and moist oral mucous membranes HEENT Narrative: Mallampati 3, no thrush Resp normal respiratory effort, normal air movement, no retractions, no use of accessory muscles and clear to auscultation bilaterally Auscultation: Negative for rales, rhonchi or wheezes Cardio regular rate, regular rhythm, S1 normal heart sound, S2 normal heart sound, no murmurs, no rub, no gallops and no clicks GI normal to inspection, nondistended, normoactive bowel sounds, soft to palpation and non-tender Extremity no clubbing, cyanosis or edema Extremity Narrative: Pedal pulses are 2+ Neuro oriented x3, moves all extremities and no focal motor deficits Speech: speech normal Psych affect normal Psych Narrative: Eye contact is good, patient interacts appropriately Assessment & Plan Assessment/Plan (1) Acute GI bleeding: (2) Exertional dyspnea: (3) Chronic anticoagulation: PLAN: Plan Acute blood loss anemia secondary to suspected GI bleed -Hemoglobin 5.5 on presentation -Baseline hemoglobin appears to run between 13 and 15 -Status post 2 units packed red blood cells--> posttransfusion hemoglobin was 8.4--> 7.6--> now 7.0 this morning -EGD and colonoscopy done on 11/05/2023 were unremarkable for any identifiable bleeding -Suspect small bowel is recommended however if his hemoglobin is not stabilizing he may need a bleeding scan versus transfer to tertiary center for interventional radiology intervention -Repeat hemoglobin pending for this afternoon and then general surgery will make further decision from there -Continue to hold home Eliquis--> takes for atrial fibrillation Atrial fibrillation -Continue to hold Eliquis -Continue metoprolol but decrease to 25 mg p.o. twice daily and I would recommend this being the discharge dose -Patient it is unclear why he is on this dose and appears from his last cardiology note the recommended dose was 25 mg p.o. twice daily -Blood pressures have been soft so holding the 50 mg this morning -Continue home amiodarone -Had recent echocardiogram on 10/24/2023 that showed an EF of 55% with no regional wall motion abnormalities, mild concentric LVH, pulmonary systolic pressure 45mmHg and mild to moderately dilated aortic root Hypertension/hyperlipidemia -Continue home atorvastatin -Continue home metoprolol but decrease dose as noted above Chronic constipation -Continue home docusate EDEN -Continue home CPAP Pulmonary nodules -Continue outpatient pulmonary follow-up -CT from August showed stable nodules with plan for repeat follow-up in 12 months History of tobacco abuse -Continue ongoing cessation BPH without obstruction -Monitor clinically -No current issues DVT prophylaxis -SCDs -Any chemoprophylaxis will be initiated per primary service Charges/Coding Visit Charges Inpatient E&M: 60228 Subs Hosp L2 11/06/23 1123 <Electronically signed by Amber Fang DO> Cosigner Signature (if applicable): CC: ~ Signed [facility] Work Phone: 1(608) 472-911605-11-2024 Progress note Author Shawn Moore [facility] November 06, 2023 11:17am Note Date/Time November 06, 2023 10:[address] [facility] Medical Records Department [address] [place] [address] Progress Note - Surgery 11/06/23 1000 MR#: [id number] Acct: [id number] Name: ANJUM SERRANO Rep #:[id number] : 1945 78 From: Shawn Couch PCP: Dr. Reema Myers MD Status:ADM IN [place] [facility] [id number] Subjective Subjective Patient seen and examined during AM rounds. He is found sitting out of bed in the chair. He shares that he had a loose bowel movement at approximately 6 PM last evening and has had no further bowel activity. He describes his bowel movement as characterized by mild incontinence and nonbloody. He confirms that he is tolerating his liquid diet without difficulty. Further, he denies any lightheadedness today. Objective Data Objective Data Vital Signs: Vital Signs Temp Pulse Resp BP Pulse Ox O2 Del Method O2 Flow Rate 98.2 F 80 18 110/71 98 Room Air 2 11/06/23 03:47 11/06/23 07:18 11/06/23 07:18 11/06/23 03:47 11/06/23 07:18 11/06/23 07:18 11/04/23 21:38 Oxygen Flow Rate (L/min) 2 Oxygen Delivery Method Room Air Weight: 240 lb 4.862 oz Body Mass Index (BMI) 31.6 Intake & Output: Intake and Output for Last 24 Hours 11/04/23 11/05/23 11/06/23 23:59 23:59 23:59 Intake Total 2 2402 4200.00 / 4200.00 Output Total 1200 / 1200 Balance 2 1902 3000.00 / 3000.00 Lab / Micro Data 11/06/23 06:11 11/05/23 07:20 Labs: Laboratory Results - last 24 hr 11/04/23 13:45: Diff Path Review Reviewed 11/06/23 06:11: WBC 5.0, RBC 2.52 L, Hgb 7.0 L, Hct 23.3 L, MCV 92.5, MCH 27.8, MCHC 30.0 L, RDW Std Deviation 57.5 H, RDW Coeff of Christina 17.1 H, Plt Count 132 L,MPV 10.6, Neut % (Auto) Not Reportable, Absolute Neuts (auto) 2.4, Absolute Lymphs (auto) 1.00, Total Counted 100, Neutrophils % (Manual) 48, Lymphocytes % (Manual) 20, Monocytes % (Manual) 8, Eosinophils % (Manual) 7 H, Basophils % (Manual) 1, Metamyelocytes % 5 H, Myelocytes % 11 H, Diff Path Review May foll, Platelet Estimate SLT DEC, Polychromasia 2+, Anisocytosis 2+, Ovalocytes 2+, Stomatocytes RARE Micro: Microbiology 11/04/23 12:48 Stool Stool Occult Blood (FANNY) - Final Occult Blood Positive Physical Exam Const oriented x3 and no apparent distress Resp normal respiratory effort GI GI Narrative: Mildly distended, tympanic, soft, nontender to palpation x 4 quadrants Assessment & Plan Assessment/Plan (1) Acute GI bleeding: PLAN: Patient admitted for GI bleed status post colonoscopy and EGD with Dr. Landon keane yesterday 11/05/2023. These were negative and their findings, however, patient's hemoglobin has further down trended today (7.6 to 7.0). He is clinically stable and asymptomatic. There are no clinical signs of ongoing blood loss and this may be simply reflected as a late indicator. I have shared this impression with Mr. Serrano and recommended that we would simply repeat his hemoglobin this afternoon. If it is stable at that point we can advance hisdiet further. However, he is cautioned that if it falls further then we would be looking for transfer to outside facility and probable transfusion. Transfusion threshold discussed with hospitalist service and they are in agreement that in the absence of ischemic heart disease he does not warrant a transfusion at this time. Will continue to hold patient's Eliquis and have started Protonix empirically. Will reassess this afternoon. Shawn Moore MD General Surgery Endocrine Surgery Pager: [facility] [address] [place] [address], [address] [place] [address] Office: [phone] Charges/Coding Visit Charges Inpatient E&M: 26662 Subs Hosp L2 11/06/23 1117 <Electronically signed by Shawn Moore MD> Cosigner Signature (if applicable): CC: ~ Signed [facility] Work Phone: 1(152) 926-152405-10-2024 Progress note Author Amber Fang [facility] November 05, 2023 5:34pm Note Date/Time November 05, 2023 8:56a m [facility] Medical Records Department [address] [place], [place] [id number] Progress Note - Hospitalist 11/05/23 0849 MR#: [id number] Acct: [id number] Name: ANJUM SERRANO Rep #:[id number] : 1945 78 From: Amber Fang DO PCP: Dr. Reema Myers MD Status:ADM IN Location: MS3 AK525-2 Reason for Visit Reason for Visit: Shortness of breath Subjective Subjective Patient has no complaints at this time. He is complaining about the diet that surgery has him on. No other acute needs at this time. Objective Data Objective Data Vital Signs: Vital Signs Temp Pulse Resp BP Pulse Ox O2 Del Method O2 Flow Rate 97.6 F L 63 18 113/71 98 Room Air 2 11/05/23 07:58 11/05/23 07:58 11/05/23 07:58 11/05/23 07:58 11/05/23 07:58 11/05/23 07:58 11/04/23 21:38 Oxygen Flow Rate (L/min) 2 Oxygen Delivery Method Room Air Weight: 109 kg Body Mass Index (BMI) 31.6 Intake & Output: Intake and Output for Last 24 Hours 11/03/23 11/04/23 11/05/23 23:59 23:59 23:59 Intake Total 2402 2400 / 2400 Output Total 500 / 500 Balance 2 1902 1900 / 1900 Lab / Micro Data 11/05/23 07:20 11/05/23 07:20 Labs: Laboratory Results - last 24 hr 11/04/23 13:45: WBC 8.7, RBC 1.94 L, Hgb 5.5 L*, Hct 19.2 L, MCV 99.0 H, MCH 28.4, MCHC 28.6 L, RDW Std Deviation 61.5 H, RDW Coeff of Christina 17.2 H, Plt Count 160, MPV 10.9, Immature Gran % (Auto) NEEDLEWORKER, Neut % (Auto) NEEDLEWORKER, Lymph % (Auto) NEEDLEWORKER, Hockley % (Auto) NEEDLEWORKER, Eos % (Auto) NEEDLEWORKER, Baso % (Auto) NEEDLEWORKER, Absolute Neuts (auto) 6.1, Absolute Lymphs (auto) 1.00, Total Counted 100, Neutrophils % (Manual) 68, Band Neutrophils % 2, Lymphocytes % (Manual) 12 L, Monocytes % (Manual) 4, Eosinophils % (Manual) 5, Basophils % (Manual) 2 H, Metamyelocytes % 3 H, Myelocytes % 1 H, Promyelocytes % 3 H, Nucleated RBC % NEEDLEWORKER, Diff Path Review May nate, Platelet Estimate ADEQUATE, RBC Morphology NORM C+C, Sodium 140, Potassium4.3, Chloride 109 H, Carbon Dioxide 26.0, Anion Gap 5, BUN 22 H, Creatinine 1.17, Est GFR (MDRD) Af Amer 77, Est GFR (MDRD) Non-Af 64, BUN/Creatinine Ratio 18.8, Glucose 165 H, Calcium 8.7, Total Bilirubin 0.50, AST 13 L, ALT 21, Alkaline Phosphatase 46, Troponin I High Sens 11, B-Natriuretic Peptide 254.7 H,Total Protein 6.5, Albumin 3.2, Globulin 3.3, Albumin/Globulin Ratio 1.0 11/04/23 15:05: Antibody Screen NEGATIVE, Crossmatch See Detail 11/05/23 00:15: Hgb 8.4 L, Hct 28.2 L 11/05/23 07:20: WBC 7.5, RBC 2.67 L, Hgb 7.6 L, Hct 25.2 L, MCV 94.4 H, MCH 28.5, MCHC 30.2 L D, RDW Std Deviation 59.3 H, RDW Coeff of Christina 17.7 H, Plt Count 150, MPV 10.4, Neut % (Auto) Not Reportable, Absolute Neuts (auto) 4.7, Absolute Lymphs (auto) 1.27, Total Counted 100, Neutrophils % (Manual) 59, Band Neutrophils % 3, Lymphocytes % (Manual) 17 L, Monocytes % (Manual) 9, Eosinophils % (Manual) 6 H, Metamyelocytes % 2 H, Myelocytes % 4 H, Diff Path Review October nate Platelet Estimate ADEQUATE, RBC Morphology N CHROM, Anisocytosis 1+, Sodium 141, Potassium 3.9, Chloride 111 H, Carbon Dioxide 26.0, Anion Gap 4 L, BUN 14, Creatinine 1.10, Estim Creat Clear Calc 69.35, Est GFR (MDRD) Af Amer83, Est GFR (MDRD) Non-Af 68, BUN/Creatinine Ratio 12.7, Glucose 112 H, Calcium 8.4 L, Total Bilirubin 0.90, Direct Bilirubin 0.25, AST 11 L, ALT 19, Alkaline Phosphatase 47, Total Protein 6.4, Albumin 3.2, Globulin 3.2 Micro: Microbiology 11/04/23 12:48 Stool Stool Occult Blood (FANNY) - Final Occult Blood Positive Radiography Diagnostic Testing: Radiology Impression Chest X-Ray 11/04/23 13:16 IMPRESSION: Hyperinflation. Persistent increased interstitial markings at the lung bases suggestive of scarring although there has been some improvement as compared to prior study. Electronically Signed: Brian Duran MD at 13:38 EDT , Physical Exam Const alert, oriented x3, no apparent distress, healthy appearing and well nourished Constitutional Narrative: Elderly, obese, white male, sitting up on the edge of the bed, appears comfortable nontoxic HEENT head/scalp atraumatic and moist oral mucous membranes HEENT Narrative: Mallampati 3, no thrush Head and Scalp: normocephalic Resp normal respiratory effort, no retractions, no use of accessory muscles and clearto auscultation bilaterally Auscultation: Negative for rales, rhonchi or wheezes Cardio regular rate, regular rhythm, S1 normal heart sound, S2 normal heart sound, no rub, no gallops and no clicks GI normal to inspection, nondistended, normoactive bowel sounds, soft to palpation and non-tender Extremity no clubbing, cyanosis or edema Extremity Narrative: Pedal pulses are 2+ Neuro oriented x3, moves all extremities and no focal motor deficits Speech: speech normal Psych affect normal Psych Narrative: Eye contact is good, patient interacts appropriately Assessment & Plan Assessment/Plan (1) Acute GI bleeding: (2) Exertional dyspnea: (3) Chronic anticoagulation: PLAN: Plan Acute blood loss anemia secondary to suspected GI bleed -Hemoglobin 5.5 on presentation -Baseline hemoglobin appears to run between 13 and 15 -Status post 2 units packed red blood cells--> hemoglobin now 7.6 -Plan for EGD and colonoscopy today -Hold home Eliquis--> takes for atrial fibrillation -Had recent EGD on 10/20/[address] Navarrete that showed erythematous mucosa in the antrum that was biopsied but was otherwise normal and the colonoscopy done on the same day showed nonbleeding internal and external hemorrhoids, several small polyps that were removed -May need capsule endoscopy as an outpatient if EGD and colonoscopy are not helpful Atrial fibrillation -Patient on top chronic anticoagulation with Eliquis -Continue home metoprolol 50 mg twice daily -Continue home amiodarone -Had recent echocardiogram on 10/24/2023 that showed an EF of 55% with no regional wall motion abnormalities, mild concentric LVH, pulmonary systolic pressure 45 mmHg and mild to moderately dilated aortic root Hypertension/hyperlipidemia -Continue home atorvastatin -Continue home metoprolol Chronic constipation -Continue home docusate EDEN -Continue home CPAP Pulmonary nodules -Continue outpatient pulmonary follow-up -CT from August showed stable nodules with plan for repeat follow-up in 12 months History of tobacco abuse -Continue ongoing cessation BPH without obstruction -Monitor clinically -No current issues DVT prophylaxis -SCDs -Any chemoprophylaxis will be initiated per primary service Charges/Coding Visit Charges Inpatient E&M: 46554 Subs Hosp L2 11/05/23 6274 <Electronically signed by Amber Fang DO> Cosigner Signature (if applicable): CC: ~ Signed [facility] Work Phone: 1(547) 197-447405-10-2024 Procedure [facility] 11-05-2023 Procedure [facility]05-10-[address] [facility]05-10-2024 Procedure [facility] 11-05-2023 Progress note Author Lilly Navarrete [facility] November 05, 2023 7:47am Note Date/Time November 05, 2023 7:46a m [facility] Medical Records Department [address] [place] [id number] Progress Note - Surgery 11/05/23 0744 MR#: [id number] Acct: [id number] Name: ANJUM SERRANO Rep #:[id number] : 1945 78 From: Lilly Navarrete MD PCP: Dr. Reema Myers MD Status:ADM IN [id number] Subjective Subjective Patient tolerated prep well clear per patient. Hemoglobin 8.4 Objective Data Objective Data Vital Signs: Vital Signs Temp Pulse Resp BP Pulse Ox O2 Del Method O2 Flow Rate 97.5 F L 63 18 133/94 H 99 Room Air 2 11/05/23 05:07 11/05/23 05:07 11/05/23 05:07 11/05/23 05:07 11/05/23 05:07 11/05/23 05:07 11/04/23 21:38 Oxygen Flow Rate (L/min) 2 Oxygen Delivery Method Room Air Weight: 240 lb 4.862 oz Body Mass Index (BMI) 31.6 Intake & Output: Intake and Output for Last 24 Hours 11/03/23 11/04/23 11/05/23 23:59 23:59 23:59 Intake Total 2401 240 / 240 Output Total 500 / 500 Balance 1901 190 / 1899 Lab / Micro Data 11/05/23 00:15 11/04/23 13:45 Labs: Laboratory Results - last 24 hr 11/04/23 13:45: WBC 8.7, RBC 1.94 L, Hgb 5.5 L*, Hct 19.2 L, MCV 99.0 H, MCH 28.4, MCHC 28.6 L, RDW Std Deviation 61.5 H, RDW Coeff of Christina 17.2 H, Plt Count 160, MPV 10.9, Immature Gran % (Auto) NEEDLEWORKER, Neut % (Auto) NEEDLEWORKER, Lymph % (Auto) NEEDLEWORKER, [place]ock[place] % (Auto) NEEDLEWORKER, Eos % (Auto) NEEDLEWORKER, Baso % (Auto) NEEDLEWORKER, Absolute Neuts (auto) 6.1, Absolute Lymphs (auto) 1.00, Total Counted 100, Neutrophils % (Manual) 68, Band Neutrophils % 2, Lymphocytes % (Manual) 12 L, Monocytes % (Manual) 4, Eosinophils % (Manual) 5, Basophils % (Manual) 2 H, Metamyelocytes % 3 H, Myelocytes % 1 H, Promyelocytes % 3 H, Nucleated RBC % NEEDLEWORKER, Diff Path Review October, Platelet Estimate ADEQUATE, RBC Morphology NORM C+C, Sodium 140, Potassium4.3, Chloride 109 H, Carbon Dioxide 26.0, Anion Gap 5, BUN 22 H, Creatinine 1.17, Est GFR (MDRD) Af Amer 77, Est GFR (MDRD) Non-Af 64, BUN/Creatinine Ratio 18.8, Glucose 165 H, Calcium 8.7, Total Bilirubin 0.50, AST 13 L, ALT 21, Alkaline Phosphatase 46, Troponin I High Sens 11, B-Natriuretic Peptide 254.7 H,Total Protein 6.5, Albumin 3.2, Globulin 3.3, Albumin/Globulin Ratio 1.0 11/04/23 15:05: Antibody Screen NEGATIVE, Crossmatch See Detail 11/05/23 00:15: Hgb 8.4 L, Hct 28.2 L Micro: Microbiology 11/04/23 12:48 Stool Stool Occult Blood (FANNY) - Final Occult Blood Positive Radiography Diagnostic Testing: Radiology Impression Chest X-Ray 11/04/23 13:16 IMPRESSION: Hyperinflation. Persistent increased interstitial markings at the lung bases suggestive of scarring although there has been some improvement as compared to prior study. Electronically Signed: Brian Duran MD at 13:38 EDT , Physical Exam Const oriented x3 and no apparent distress Resp normal respiratory effort Cardio regular rate GI soft to palpation and non-tender Inspection: Negative for abdominal distention Assessment & Plan Assessment/Plan (1) Acute GI bleeding: PLAN: Plan EGD and colonoscopy scheduled this morning. Patient had no further questions this time. Eliquis held Hemoglobin 8.4 from 5.5 after 2 units packed red blood cells?AM labs pending Lilly Navarrete M.D. Pager: [phone] [facility] [address] [place] [address], [address] [place] [address] Office: [phone] 11/05/23 0747 <Electronically signed by Lilly Navarrete MD> Cosigner Signature (if applicable): CC: ~ Signed [facility] Work Phone: 1(815) 284-533905-10-2024 Consult note Author Freddie Ortiz [facility] November 04, 2023 10:15pm Note Date/Time November 04, 2023 2:30pm [facility] Medical Records Department [address] [place], [place] [id number] Consultation - Hospitalist 11/04/23 1430 MR#: [id number] Acct: [id number] Name: ANJUM SERRANOD Rep #:[id number] : 1945 78 From: Freddie anderson DO PCP: Dr. Reema Myers MD Status:ADM IN Location: [facility] [id number] Assessment & Plan Assessment/Plan (1) Acute GI bleeding: (2) Anemia: PLAN: Plan Patient is an 78-year-old male who presented [facility] ED on 11/04/2023 with worsening shortness of breath with exertion. Found to be severelyanemic presumed secondary to acute blood loss from GI bleed, admitted under the general surgery service. Medicine consulted for medical management. 1. Acute blood loss anemia presumed secondary to GI bleed ? General surgery primary. Hemoglobin 5.5 in ED. S/p 2 units of packed red blood cells, repeat hemoglobin pending. Clear liquid diet for now with plan forn.p.o. at midnight and both EGD and colonoscopy tomorrow. Trend CBC daily. SCDs for DVT prophylaxis. 2. A-fib on Eliquis ? Follows with [facility]. Home medications of amiodarone 200 mg daily, Lopressor 50 mg twice daily and Eliquis. Eliquis notably has been held since August when he was found to have new onset anemia. EKG on admit showed normal sinus rhythm, no ST changes. Continue home amiodarone and Lopressor. 3. Mild COPD ? Follows with pulmonology, last office visit was in July. Was noted to have a mild mixed ventilatory defect, no indication for maintenance inhalers at this time. Stable on room air at rest in the ED, breathing comfortably, not in acute exacerbation. No need to order inhalers at this time. 4. EDEN ? Appears that this was recently diagnosed within the last few months, unclear if he is wearing home PAP therapy at this time. Can order PAP therapy as needed. 5. Obesity ? BMI 31 on admit. Complicates hospital course, care and prognosis. 6. Lung nodule ? Follows with pulmonology as noted above. CT chest in August showed stable nodule with plan for follow-up in 12 months. DVT prophylaxis: SCDs Total clinical time spent by myself addressing the patient's medical issues, reviewing all the data, and collaborating with patient's care team: 35 minutes. HPI Consult Data Date of Consult: 11/04/23 HPI Narrative Reason for Consultation: Medical management HPI Narrative: ANJUM SERRANO, is a 78 M who presented to [facility] ED on 11/04/2023 with worsening shortness of breath. Found to have a hemoglobin of 5.5 in the ED. Has history of A-fib on Eliquis. Was recently found to have iron deficiency anemia and had both colonoscopy and endoscopy done by Dr. Navarrete on10/19. EGD showed erythematous mucosa in the antrum that was biopsied, was otherwise normal. Colonoscopy showed nonbleeding internal and external hemorrhoids, several small polyps that removed, was otherwise normal. Last hemoglobin was 9.8 back on 09/08. Patient reported intermittent black stools over the past few weeks. Last had a black stool yesterday but notes this was followed by a brown stool. Given acute blood loss anemia presumed secondary to GI bleed and that patient recently saw general surgery here, patient was admitted under the general surgery service and medicine was consulted for medical management. Saw patient at the bedside in the ED, present at bedside. Patient was sitting up comfortably in bed, conversing normally, in no acute distress. Patient was very pleasant with conversation. He denied any shortness of breath at rest but states that over the past few days he has had significant shortness of breath with fairly minimal exertion. He denies any other significant symptoms at this time. Denies any fevers/chills, chest pain, abdominal pain, nausea or vomiting. Vitals in ED were unremarkable, heart rate normal sinus rhythm in 60s to 70s, normotensive, good oxygen saturations on room air at rest. Labs notable for hemoglobin 5.5, MCV 99, platelets 160, WBC count 8, creatinine 1.17 (at baseline), BMP otherwise benign, HFP benign, BNP 254 (similar to previous). Chest x-ray showed hyperinflation and persistent increased interstitial markingsat lung bases slightly improved from previous. Patient was admitted under general surgery service for further management. [facility] Medical History Alcohol use Anemia Arthritis Back pain BPH (benign prostatic hyperplasia) Burning pain Cardiology follow-up encounter COPD (chronic obstructive pulmonary disease) Difficulty swallowing Essential hypertension High cholesterol History of cardioversion History of echocardiogram History of edema History of pain when walking History of stress test Hyperlipidemia New onset atrial fibrillation (03/14/21) Obesity Prostate disease Restless legs Self-catheterizes urinary bladder Shortness of breath on exertion Syncope Tobacco dependence Wears glasses Wears hearing aid Home Medications omega-3 fatty acids-fish oil 340 mg-1,000 mg capsule 3 ea PO BID supplement 05/31/19 [History Last Taken 10/15/23] apixaban 5 mg tablet (Eliquis) 5 mg PO BID #60 tabs 03/18/21 [Rx Last Taken 10/12/23] atorvastatin 40 mg tablet 40 mg PO QHS 03/18/21 [History Last Taken Unknown] amiodarone 200 mg tablet 200 mg PO DAILY #90 tabs 02/02/23 [Rx Last Taken Unknown] metoprolol tartrate 50 mg tablet 50 mg PO BID this is a dose increase #180 tabs 02/02/23 [Rx Last Taken 10/20/23 07:00] docusate sodium 100 mg capsule 100 mg PO BID 07/01/23 [History Last Taken Unknown] Allergy/AdvReac Type Severity Reaction Status Date / Time No Known Allergies Allergy Verified 11/04/23 12:17 Family History Mother Heart disease Hypertension Thyroid disorder Father Heart disease Brother Hypertension Surgical History History of appendectomy History of transurethral resection of prostate Hx of left cataract extraction Hx of right cataract extraction Social History (Updated 11/04/23 @ 13:58 by Suzanna Montenegro) household members: spouse housing: house Smoking Status: Former smoker quit date: 02/26/21 alcohol intake: current alcohol intake frequency: a few times a month ROS Constitutional Constitutional: Reports fatigue; Denies chills, fever(s) or weakness Cardiovascular Cardiovascular: Reports dyspnea on exertion; Denies chest pain, edema, lightheadedness, orthopnea or palpitations Respiratory/Chest Respiratory/Chest: Denies cough, shortness of breath at rest or wheezing Gastrointestinal Gastrointestinal: Reports melena; Denies abdominal pain, hematochezia, nausea orvomiting Musculoskeletal Musculoskeletal: Denies arthralgias, back pain or myalgias Neurologic Neurologic: Denies dizziness, focal weakness or headache(s) Physical Exam Const alert, oriented x3 and no apparent distress Constitutional Narrative: Pleasant elderly male, mildly pale appearing, obese, otherwise sitting up comfortably in bed, conversing normally, in no acute distress. General Appearance: cooperative and comfortable HEENT normocephalic, head/scalp atraumatic, hearing grossly normal bilaterally and nasal mucous membranes and turbinates normal Eyes PERRL, EOMs intact bilaterally and conjunctivae normal Neck full ROM Chest inspection of chest normal Resp normal respiratory effort, normal air movement, no use of accessory muscles and clear to auscultation bilaterally Cardio regular rate, regular rhythm, no murmurs and peripheral pulses 2+ throughout GI normal to inspection, nondistended, normoactive bowel sounds, soft to palpation,non-tender and non-distended Back/Spine normal ROM Extremity normal to inspection, full ROM and no pedal edema Skin no rashes or lesions noted Neuro moves all extremities and no focal motor deficits Speech: speech normal Psych mental status grossly normal Lab / Micro Data 11/04/23 13:45 11/04/23 13:45 Labs: Laboratory Results - last 24 hr 11/04/23 13:45: WBC 8.7, RBC 1.94 L, Hgb 5.5 L*, Hct 19.2 L, MCV 99.0 H, MCH 28.4, MCHC 28.6 L, RDW Std Deviation 61.5 H, RDW Coeff of Christina 17.2 H, Plt Count 160, MPV 10.9, Immature Gran % (Auto) NEEDLEWORKER, Neut % (Auto) NEEDLEWORKER, Lymph % (Auto) NEEDLEWORKER, Hockley % (Auto) NEEDLEWORKER, Eos % (Auto) NEEDLEWORKER, Baso % (Auto) NEEDLEWORKER, Nucleated RBC % NEEDLEWORKER, Sodium 140, Potassium 4.3, Chloride 109 H, Carbon Dioxide 26.0, Anion Gap 5, BUN 22 H, Creatinine 1.17, Est GFR (MDRD) Af Amer 77, Est GFR (MDRD) Non-Af 64, BUN/Creatinine Ratio 18.8, Glucose 165 H, Calcium 8.7, Total Bilirubin 0.50, AST13 L, ALT 21, Alkaline Phosphatase 46, Troponin I High Sens 11, B-Natriuretic Peptide 254.7 H, Total Protein 6.5, Albumin 3.2, Globulin 3.3, Albumin/Globulin Ratio 1.0 Micro: Microbiology 11/04/23 12:48 Stool Stool Occult Blood (FANNY) - Final Occult Blood Positive Imaging Radiology Impression Chest X-Ray 11/04/23 13:16 IMPRESSION: Hyperinflation. Persistent increased interstitial markings at the lung bases suggestive of scarring although there has been some improvement as compared to prior study. Electronically Signed: Brian Duran MD at 13:38 EDT , Charges/Coding Visit Charges Inpatient E&M: 44677 Subs Hosp L2 11/04/23 2215 <Electronically signed by Freddie Ortiz DO> Cosigner Signature (if applicable): CC: Dr. Reema Myers MD~ Signed [facility] Work Phone: 1(709) 663-266905-09-2024 Discharge summary Author Fitz Denney [facility] November 04, 2023 4:41pm Note Date/Time November 04, 2023 1:00pm [facility] Medical Records Department [address] [place] [address] Emergency Department Summary 11/04/23 MR#: [id number] Acct: [id number] Name: ANJUM SERRANO Rep #:[id number] : 1945 78 From: Rhea TOWNSEND PCP: Dr. Reema Myers MD Status:REG ER Location: ED HPI <KRISTIAN Lyons - Last Filed: 11/04/23 15:19> History of Present Illness Chief Complaint: GI Bleed Narrative Narrative: Patient presenting due to shortness of breath. He reports that he began feelingshort of breath in the summer 2022 and has gotten progressively worse since then, especially over the last few weeks. He recently had a echocardiogram thatshowed an EF of 55%. He reports that he is now only able to walk about 50 feet without getting short of breath, even showering makes him feel this way. He does have a PMH of hypertension, atrial fibrillation on Eliquis, and EDEN. He recently had a sleep study but has not yet started any treatment for his sleep apnea. He has had intermittent black stools over the past few weeks, he was found to have iron deficiency anemia and had both a colonoscopy and endoscopy recently, several polyps were removed but otherwise was told his tests were unremarkable. He last had a black stool yesterday and this morning it was brown. He also endorses swelling to his bilateral lower extremities that he hashad over the past few weeks that started after going on a long car ride to [place]. He denies any fevers, chills, chest pain, abdominal pain, nausea, or vomiting. [facility] <KRISTIAN Lyons - Last Filed: 11/04/23 15:19> [facility] Medical History Alcohol use Anemia Arthritis Back pain BPH (benign prostatic hyperplasia) Burning pain Cardiology follow-up encounter COPD (chronic obstructive pulmonary disease) Difficulty swallowing Essential hypertension High cholesterol History of cardioversion History of echocardiogram History of edema History of pain when walking History of stress test Hyperlipidemia New onset atrial fibrillation (03/14/21) Obesity Prostate disease Restless legs Self-catheterizes urinary bladder Shortness of breath on exertion Syncope Tobacco dependence Wears glasses Wears hearing aid Home Medications omega-3 fatty acids-fish oil 340 mg-1,000 mg capsule 3 ea PO BID supplement 05/31/19 [History Last Taken 10/15/23] apixaban 5 mg tablet (Eliquis) 5 mg PO BID #60 tabs 03/18/21 [Rx Last Taken 10/12/23] atorvastatin 40 mg tablet 40 mg PO QHS 03/18/21 [History Last Taken Unknown] amiodarone 200 mg tablet 200 mg PO DAILY #90 tabs 02/02/23 [Rx Last Taken Unknown] metoprolol tartrate 50 mg tablet 50 mg PO BID this is a dose increase #180 tabs 02/02/23 [Rx Last Taken 10/20/23 07:00] docusate sodium 100 mg capsule 100 mg PO BID 07/01/23 [History Last Taken Unknown] Allergy/AdvReac Type Severity Reaction Status Date / Time No Known Allergies Allergy Verified 11/04/23 12:17 Family History Mother Heart disease Hypertension Thyroid disorder Father Heart disease Brother Hypertension Surgical History History of appendectomy History of transurethral resection of prostate Hx of left cataract extraction Hx of right cataract extraction Social History (Updated 11/04/23 @ 13:58 by Suzanna Montenegro) household members: spouse housing: house Smoking Status: Former smoker quit date: 02/26/21 alcohol intake: current alcohol intake frequency: a few times a month ROS <KRISTIAN Lyons - Last Filed: 11/04/23 15:19> ROS ED Constitutional Constitutional ED: Denies chills or fever(s) Cardiovascular Cardiovascular: Denies chest pain or palpitations Respiratory/Chest Respiratory/Chest: Reports dyspnea on exertion; Denies cough or wheezing Gastrointestinal Gastrointestinal: Reports melena; Denies abdominal pain, nausea or vomiting Genitourinary Genitourinary ED: Denies dysuria, hematuria or urinary urgency Musculoskeletal Musculoskeletal: Denies arthralgias or myalgias Integumentary Denies rash Neurologic Neurologic: Denies weakness EXAM <KRISTIAN Lyons - Last Filed: 11/04/23 15:19> Physical Exam Const Vital Signs: 11/04/23 12:16 11/04/23 12:16 11/04/23 13:57 Temperature 96.1 F L Temperature Source Temporal Pulse Rate 67 71 66 Respiratory Rate 14 16 17 Blood Pressure 87/57 L 108/57 L 107/70 Blood Pressure Mean 67 74 82 Pulse Ox 100 100 100 Oxygen Delivery Method Room Air 11/04/23 14:00 11/04/23 15:00 11/04/23 15:20 Temperature 96.1 F L Temperature Source Pulse Rate 70 70 70 Respiratory Rate 20 H 17 17 Blood Pressure 104/65 119/72 119/72 Blood Pressure Mean 78 87 87 Pulse Ox 97 97 97 Oxygen Delivery Method 11/04/23 13:25 11/04/23 13:30 11/04/23 13:45 Temperature Temperature Source Pulse Rate 79 74 73 Respiratory Rate 20 H 18 18 Blood Pressure Blood Pressure Mean Pulse Ox 98 99 100 Oxygen Delivery Method 11/04/23 13:56 11/04/23 14:00 11/04/23 14:15 Temperature Temperature Source Pulse Rate 65 68 72 Respiratory Rate 18 18 20 H Blood Pressure 107/70 104/65 101/77 Blood Pressure Mean 82 77 86 Pulse Ox 100 Oxygen Delivery Method Room Air 11/04/23 14:30 11/04/23 14:45 11/04/23 15:00 Temperature Temperature Source Pulse Rate 67 73 Respiratory Rate 21 H 19 H Blood Pressure 106/77 119/90 H 119/72 Blood Pressure Mean 87 100 86 Pulse Ox Oxygen Delivery Method 11/04/23 15:15 11/04/23 15:30 11/04/23 15:45 Temperature Temperature Source Pulse Rate 79 64 Respiratory Rate 22 H 17 Blood Pressure 101/68 114/71 104/69 Blood Pressure Mean 78 83 81 Pulse Ox Oxygen Delivery Method Room Air 11/04/23 16:00 Temperature Temperature Source Pulse Rate 68 Respiratory Rate 18 Blood Pressure 111/74 Blood Pressure Mean 87 Pulse Ox 93 Oxygen Delivery Method Room Air Positive well nourished, well developed and no apparent distress General Appearance ED: well developed HEENT Reports normocephalic and head/scalp atraumatic Mouth ED: Yes moist mucous membranes normal Eyes PERRL and EOMs intact bilaterally Neck full ROM and supple Chest Wall inspection of chest normal Resp normal respiratory effort and clear to auscultation bilaterally Cardio regular rate and regular rhythm GI soft to palpation, non-tender, non-distended and no masses GI Narrative: Rectal exam: Performed with nurse in the room, normal sphincter tone, brown stool Back/Spine normal ROM and normal to inspection Extremity full ROM Extremity Narrative: Minimal equal nonpitting edema to the bilateral lower extremities at the feet and ankles. Neuro oriented x3, CN's II-XII intact bilaterally, moves all extremities, no focal motor deficits and no sensory deficits noted Sensorium / Orientation: awake and alert Psych mental status grossly normal and thought process normal Skin no rashes or lesions noted and no wounds <Dr. Fitz Denney, DO - Last Filed: 11/04/23 16:41> Physical Exam Const Vital Signs: 11/04/23 12:16 11/04/23 12:16 11/04/23 13:57 Temperature 96.1 F L Temperature Source Temporal Pulse Rate 67 71 66 Respiratory Rate 14 16 17 Blood Pressure 87/57 L 108/57 L 107/70 Blood Pressure Mean 67 74 82 Pulse Ox 100 100 100 Oxygen Delivery Method Room Air 11/04/23 14:00 11/04/23 15:00 11/04/23 15:20 Temperature 96.1 F L Temperature Source Pulse Rate 70 70 70 Respiratory Rate 20 H 17 17 Blood Pressure 104/65 119/72 119/72 Blood Pressure Mean 78 87 87 Pulse Ox 97 97 97 Oxygen Delivery Method 11/04/23 13:25 11/04/23 13:30 11/04/23 13:45 Temperature Temperature Source Pulse Rate 79 74 73 Respiratory Rate 20 H 18 18 Blood Pressure Blood Pressure Mean Pulse Ox 98 99 100 Oxygen Delivery Method 11/04/23 13:56 11/04/23 14:00 11/04/23 14:15 Temperature Temperature Source Pulse Rate 65 68 72 Respiratory Rate 18 18 20 H Blood Pressure 107/70 104/65 101/77 Blood Pressure Mean 82 77 86 Pulse Ox 100 Oxygen Delivery Method Room Air 11/04/23 14:30 11/04/23 14:45 11/04/23 15:00 Temperature Temperature Source Pulse Rate 67 73 Respiratory Rate 21 H 19 H Blood Pressure 106/77 119/90 H 119/72 Blood Pressure Mean 87 100 86 Pulse Ox Oxygen Delivery Method 11/04/23 15:15 11/04/23 15:30 11/04/23 15:45 Temperature Temperature Source Pulse Rate 79 64 Respiratory Rate 22 H 17 Blood Pressure 101/68 114/71 104/69 Blood Pressure Mean 78 83 81 Pulse Ox Oxygen Delivery Method Room Air 11/04/23 16:00 Temperature Temperature Source Pulse Rate 68 Respiratory Rate 18 Blood Pressure 111/74 Blood Pressure Mean 87 Pulse Ox 93 Oxygen Delivery Method Room Air [facility] <KRISTIAN Lyons - Last Filed: 11/04/23 15:19> [facility] Narrative Medical decision making narrative: Patient presenting with shortness of breath on exertion he has had chronically but has gotten worse over the past few weeks. He is now only able to ambulate about 50 feet before he feels short of breath. He recently had a colonoscopy and endoscopy on 10/[address] Navarrete, I did review these reports, he had several polyps removed and a biopsy was taken. Echo was performed 10/23 with an EF of 55%. Differentials include CHF exacerbation versus GI bleed. Cardiac workup obtained, troponin WNL, BNP slightly elevated at 254, chest x-ray negative for any acute findings. I did perform a rectal examination, brown stoolnoted but stool occult is positive. H&H is 5.5 and 19.2, he will be transfused 2 units of blood. He is on Eliquis. The attending did speak with Dr. Hussein, he will admit patient under his service for further workup and treatment. Patient admitted in stable condition. Lab Data Attestation: I reviewed the patient's lab results. Lab results narrative: H&H 5.5 and 19.2, BUN 22, BNP 254, troponin 11 Labs: Laboratory Results - last 24 hr 11/04/23 11/04/23 13:45 15:05 WBC 8.7 RBC 1.94 L Hgb 5.5 L* Hct 19.2 L MCV 99.0 H MCH 28.4 MCHC 28.6 L RDW Std Deviation 61.5 H RDW Coeff of Christina 17.2 H Plt Count 160 MPV 10.9 Immature Gran % (Auto) NEEDLEWORKER Neut % (Auto) NEEDLEWORKER Lymph % (Auto) NEEDLEWORKER Hockley % (Auto) NEEDLEWORKER Eos % (Auto) NEEDLEWORKER Baso % (Auto) NEEDLEWORKER Absolute Neuts (auto) 6.1 Absolute Lymphs (auto) 1.00 Total Counted 100 Neutrophils % (Manual) 68 Band Neutrophils % 2 Lymphocytes % (Manual) 12 L Monocytes % (Manual) 4 Eosinophils % (Manual) 5 Basophils % (Manual) 2 H Metamyelocytes % 3 H Myelocytes % 1 H Promyelocytes % 3 H Nucleated RBC % NEEDLEWORKER Diff Path Review May foll Platelet Estimate ADEQUATE RBC Morphology NORM C+C Sodium 140 Potassium 4.3 Chloride 109 H Carbon Dioxide 26.0 Anion Gap 5 BUN 22 H Creatinine 1.17 Est GFR (MDRD) Af Amer 77 Est GFR (MDRD) Non-Af 64 BUN/Creatinine Ratio 18.8 Glucose 165 H Calcium 8.7 Total Bilirubin 0.50 AST 13 L ALT 21 Alkaline Phosphatase 46 Troponin I High Sens 11 B-Natriuretic Peptide 254.7 H Total Protein 6.5 Albumin 3.2 Globulin 3.3 Albumin/Globulin Ratio 1.0 Antibody Screen NEGATIVE Crossmatch See Detail Radiography X-Ray: Read by ED Physician Diagnostic Testing: Clinical Impression(s) from Imaging Studies Chest X-Ray 11/04/23 13:16 IMPRESSION: Hyperinflation. Persistent increased interstitial markings at the lung bases suggestive of scarring although there has been some improvement as compared to prior study. Electronically Signed: Brian Duran MD at 13:38 EDT , EKG Initial EKG: Comments: 76 bpm, atrial fibrillation, no ST elevation, reviewed and interpreted by attending ED physician <Dr. Fitz Denney, DO - Last Filed: 11/04/23 16:41> [facility] Narrative Medical decision making narrative: Patient presenting with shortness of breath on exertion he has had chronically but has gotten worse over the past few weeks. He is now only able to ambulate about 50 feet before he feels short of breath. He recently had a colonoscopy and endoscopy on 10/[address] Navarrete, I did review these reports, he had several polyps removed and a biopsy was taken. Echo was performed 10/23 with an EF of 55%. Differentials include CHF exacerbation versus GI bleed. Cardiac workup obtained, troponin WNL, BNP slightly elevated at 254, chest x-ray negative for any acute findings. I did perform a rectal examination, brown stoolnoted but stool occult is positive. H&H is 5.5 and 19.2, he will be transfused 2 units of blood. He is on Eliquis. The attending did speak with Dr. Hussein, he will admit patient under his service for further workup and treatment. Patient admitted in stable condition. This patient was seen with a PA/NEEDLEWORKER Individually assessed they patient including history and physical. I have reviewed everything on the chart that is availableand agree with the documentation provided by the PA/NEEDLEWORKER including discussion about the assessment, treatment plan, discussion, and return precautions. Patient presenting with worsening shortness of breath. Recently had low hemoglobins and saw Dr. Cason from for this. Colonoscopy was performed and several biopsies of polyps were performed as well. Patient with acutely lower hemoglobin worsening symptoms. Patient was typed, screened, crossmatch 2 units. Hemoglobin 5.5. Patient with history of CHF so we did do cardiac evaluation and his BNP is 254.7. High-sensitivity troponin is 11. EKG sinus rhythm 76 bpmwithout sign ischemic change. Chest x-ray my interpretation shows nothing acute. Radiology interpretation agrees. Discussed the case with Dr. Husseinwho is on-call for surgery. Patient will be admitted to medicine. Impression: 1. Acute blood loss anemia 2. GI bleed 3. Dyspnea 4. Lightheadedness Lab Data Labs: Laboratory Results - last 24 hr 11/04/23 11/04/23 13:45 15:05 WBC 8.7 RBC 1.94 L Hgb 5.5 L* Hct 19.2 L MCV 99.0 H MCH 28.4 MCHC 28.6 L RDW Std Deviation 61.5 H RDW Coeff of Christina 17.2 H Plt Count 160 MPV 10.9 Immature Gran % (Auto) NEEDLEWORKER Neut % (Auto) NEEDLEWORKER Lymph % (Auto) NEEDLEWORKER [place]ockley % (Auto) NEEDLEWORKER Eos % (Auto) NEEDLEWORKER Baso % (Auto) NEEDLEWORKER Absolute Neuts (auto) 6.1 Absolute Lymphs (auto) 1.00 Total Counted 100 Neutrophils % (Manual) 68 Band Neutrophils % 2 Lymphocytes % (Manual) 12 L Monocytes % (Manual) 4 Eosinophils % (Manual) 5 Basophils % (Manual) 2 H Metamyelocytes % 3 H Myelocytes % 1 H Promyelocytes % 3 H Nucleated RBC % NEEDLEWORKER Diff Path Review May foll Platelet Estimate ADEQUATE RBC Morphology NORM C+C Sodium 140 Potassium 4.3 Chloride 109 H Carbon Dioxide 26.0 Anion Gap 5 BUN 22 H Creatinine 1.17 Est GFR (MDRD) Af Amer 77 Est GFR (MDRD) Non-Af 64 BUN/Creatinine Ratio 18.8 Glucose 165 H Calcium 8.7 Total Bilirubin 0.50 AST 13 L ALT 21 Alkaline Phosphatase 46 Troponin I High Sens 11 B-Natriuretic Peptide 254.7 H Total Protein 6.5 Albumin 3.2 Globulin 3.3 Albumin/Globulin Ratio 1.0 Antibody Screen NEGATIVE Crossmatch See Detail Radiography Diagnostic Testing: Clinical Impression(s) from Imaging Studies Chest X-Ray 11/04/23 13:16 IMPRESSION: Hyperinflation. Persistent increased interstitial markings at the lung bases suggestive of scarring although there has been some improvement as compared to prior study. 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 Call [facility] ([phone]) or report to the closest Emergency Room. Call 911 if necessary. 11/04/23 1519 <Electronically signed by Rhea TOWNSEND> Cosigner Signature (if applicable): 11/04/23 1641 <Electronically signed by Fitz Denney DO> CC: Dr. Reema Myers MD ~ Signed [facility] Work Phone: [phone]) 813-588205-09-2024 History and physical note Author Marcela Lassiter [facility] November 04, 2023 3:52pm Note Date/Time November 04, 2023 3:48pm [facility] Medical Records Department [address] [place] [address] History & Physical Exam 11/04/23 1530 MR#: [id number] Acct: [id number] Name: ANJUM SERRANO Rep #:[id number] : 1945 78 From: Marcela TOWNSEND PA-C PCP: Dr. Reema Myers MD Status:REG ER Location: ED HPI - General General Date of Admission: 11/04/23 Date of Service: 11/04/23 Chief Complaint: GI bleed HPI Narrative ANJUM SERRANO, is a 78 M who presents with new onset of fatigue and shortness of breath for several days. Patient recently had an upper and lower scope by on 10/19 for anemia. Findings included hemorrhoids, polyps and diverticulosis, erythema of the mucosa of the antrum and gastric lipoma. Pathology demonstrated mild gastritis, tubular adenoma x 2 and hyperplastic polyp. Patient notes he was diagnosed with iron deficiency anemia just prior to his scopes and was placed on iron. Patient had stopped his iron 1 week prior to the scope and has not returned to taking it. Patient is also taking Eliquis which he restarted 2 or 3 days after his scopes. Patient is on Eliquis for A fib. He denies previous myocardial infarction, stroke or blood clots. He denies abdominal pain. He notes dark, tarry stool. No bright red rectal bleeding. He notes a history of constipation. he noted last BM was today however very small. he notes feeling abdominal distention. he has a history of urinary retention andself-caths at home. Patient's Hgb is 5.5 upon admission. BNP is 254.7. PFSH Medical History Alcohol use Anemia Arthritis Back pain BPH (benign prostatic hyperplasia) Burning pain Cardiology follow-up encounter COPD (chronic obstructive pulmonary disease) Difficulty swallowing Essential hypertension High cholesterol History of cardioversion History of echocardiogram History of edema History of pain when walking History of stress test Hyperlipidemia New onset atrial fibrillation (03/14/21) Obesity Prostate disease Restless legs Self-catheterizes urinary bladder Shortness of breath on exertion Syncope Tobacco dependence Wears glasses Wears hearing aid Home Medications omega-3 fatty acids-fish oil 340 mg-1,000 mg capsule 3 ea PO BID supplement 05/31/19 [History Last Taken 10/15/23] apixaban 5 mg tablet (Eliquis) 5 mg PO BID #60 tabs 03/18/21 [Rx Last Taken 10/12/23] atorvastatin 40 mg tablet 40 mg PO QHS 03/18/21 [History Last Taken Unknown] amiodarone 200 mg tablet 200 mg PO DAILY #90 tabs 02/02/23 [Rx Last Taken Unknown] metoprolol tartrate 50 mg tablet 50 mg PO BID this is a dose increase #180 tabs 02/02/23 [Rx Last Taken 10/20/23 07:00] docusate sodium 100 mg capsule 100 mg PO BID 07/01/23 [History Last Taken Unknown] Allergy/AdvReac Type Severity Reaction Status Date / Time No Known Allergies Allergy Verified 11/04/23 12:17 Family History Mother Heart disease Hypertension Thyroid disorder Father Heart disease Brother Hypertension Surgical History History of appendectomy History of transurethral resection of prostate Hx of left cataract extraction Hx of right cataract extraction Social History (Updated 11/04/23 @ 13:58 by Suzanna Montenegro) household members: spouse housing: house Smoking Status: Former smoker quit date: 02/26/21 alcohol intake: current alcohol intake frequency: a few times a month ROS Constitutional Constitutional: Reports systems reviewed and no addt'l complaints, except as documented and fatigue Eyes Eyes: Reports systems reviewed and no addt'l complaints, except as documented ENT HEENT: Reports systems reviewed and no addt'l complaints, except as documented Cardiovascular Cardiovascular: Reports systems reviewed and no addt'l complaints, except as documented Respiratory/Chest Respiratory/Chest: Reports systems reviewed and no addt'l complaints, except as documented Gastrointestinal Gastrointestinal: Reports systems reviewed and no addt'l complaints, except as documented Genitourinary Genitourinary: Reports systems reviewed and no addt'l complaints, except as documented Musculoskeletal Musculoskeletal: Reports systems reviewed and no addt'l complaints, except as documented Integumentary Integumentary: Reports systems reviewed and no addt'l complaints, except as documented Neurologic Neurologic: Reports systems reviewed and no addt'l complaints, except as documented Psychiatric Psychiatric: Reports systems reviewed and no addt'l complaints, except as documented Endocrine Endocrinology: Reports systems reviewed and no addt'l complaints, except as documented Hematologic/Lymphatic Hematologic/Lymphatic: Reports systems reviewed and no addt'l complaints, exceptas documented Allergic/Immunologic Allergic/Immunologic: Reports systems reviewed and no addt'l complaints, except as documented Vital Signs Vital Signs Vital Signs: 11/04/23 12:16 11/04/23 12:16 11/04/23 13:57 Temperature 96.1 F L Temperature Source Temporal Pulse Rate 67 71 66 Respiratory Rate 14 16 17 Blood Pressure 87/57 L 108/57 L 107/70 Blood Pressure Mean 67 74 82 Pulse Ox 100 100 100 Oxygen Delivery Method Room Air 11/04/23 14:00 11/04/23 15:00 11/04/23 15:20 Temperature 96.1 F L Temperature Source Pulse Rate 70 70 70 Respiratory Rate 20 H 17 17 Blood Pressure 104/65 119/72 119/72 Blood Pressure Mean 78 87 87 Pulse Ox 97 97 97 Oxygen Delivery Method Weight Weight: 169 lb 5.04 oz Body Mass Index (BMI) 22.3 Physical Exam Const alert, oriented x3 and no apparent distress HEENT normocephalic and head/scalp atraumatic Eyes PERRL Neck full ROM Lymph Lymphatic: no lymphadenopathy noted Chest inspection of chest normal Resp normal respiratory effort, normal air movement and clear to auscultation bilaterally Cardio regular rate and regular rhythm GI Inspection: abdominal distention Auscultation: hypoactive bowel sounds Palpation: soft and firm; Negative for tender, guarding or rigid Percussion: tympanic to percussion no CVA tenderness Back/Spine no CVA tenderness Extremity normal to inspection Skin no rashes or lesions noted Neuro no focal motor deficits and no sensory deficits noted Psych mental status grossly normal, thought process normal, cooperative and affect normal Results Lab / Micro Data 11/04/23 13:45 11/04/23 13:45 Labs: Laboratory Results - last 24 hr 11/04/23 13:45: WBC 8.7, RBC 1.94 L, Hgb 5.5 L*, Hct 19.2 L, MCV 99.0 H, MCH 28.4, MCHC 28.6 L, RDW Std Deviation 61.5 H, RDW Coeff of Christina 17.2 H, Plt Count 160, MPV 10.9, Immature Gran % (Auto) NEEDLEWORKER, Neut % (Auto) NEEDLEWORKER, Lymph % (Auto) NEEDLEWORKER, Hockley % (Auto) NEEDLEWORKER, Eos % (Auto) NEEDLEWORKER, Baso % (Auto) NEEDLEWORKER, Absolute Neuts (auto) 6.1, Absolute Lymphs (auto) 1.00, Total Counted 100, Neutrophils % (Manual) 68, Band Neutrophils % 2, Lymphocytes % (Manual) 12 L, Monocytes % (Manual) 4, Eosinophils % (Manual) 5, Basophils % (Manual) 2 H, Metamyelocytes % 3 H, Myelocytes % 1 H, Promyelocytes % 3 H, Nucleated RBC % NEEDLEWORKER, Diff Path Review May foll, Platelet Estimate ADEQUATE, RBC Morphology NORM C+C, Sodium 140, Potassium4.3, Chloride 109 H, Carbon Dioxide 26.0, Anion Gap 5, BUN 22 H, Creatinine 1.17, Est GFR (MDRD) Af Amer 77, Est GFR (MDRD) Non-Af 64, BUN/Creatinine Ratio 18.8, Glucose 165 H, Calcium 8.7, Total Bilirubin 0.50, AST 13 L, ALT 21, Alkaline Phosphatase 46, Troponin I High Sens 11, B-Natriuretic Peptide 254.7 H,Total Protein 6.5, Albumin 3.2, Globulin 3.3, Albumin/Globulin Ratio 1.0 11/04/23 15:05: Crossmatch See Detail Micro: Microbiology 11/04/23 12:48 Stool Stool Occult Blood (FANNY) - Final Occult Blood Positive Imaging Radiology Impression Chest X-Ray 11/04/23 13:16 IMPRESSION: Hyperinflation. Persistent increased interstitial markings at the lung bases suggestive of scarring although there has been some improvement as compared to prior study. Electronically Signed: Brian Duran MD at 13:38 EDT , Assessment & Plan Assessment/Plan (1) Acute GI bleeding: PLAN: I am seeing this patient in conjunction with Dr. Navarrete. She will independently evaluate this patient. Patient presents with shortness of breath and fatigue with a Hgb of 5.5. Plan to admit patient, IV fluids, bowel prep, transfuse PRBC. Plan to hold Eliquis. Patient will need straight cathed as needed per his schedule at home. Dr. Navarrete will plan to perform an upper and lower scope with possible biopsies, possible cessation of bleeding. Patient has had the opportunity to ask and have questions answered. Patient verbally understands and agrees with the plan. Thank you for allowing us to participate in this patient's care. Charges/Coding Visit Charges Office Visits / Consults: 37027 IP Consult L3 11/04/23 8160 <Electronically signed by Marcela TOWNSEND PA-C> Cosigner Signature (if applicable): CC: MOLLY Lassiter; Dr. Reema Myers MD~ Signed [facility] Work Phone: [phone]) 493-758405-09-2024 History and physical note Author Marcela Lassiter [facility] November 04, 2023 3:52pm Note Date/Time November 04, 2023 3:48pm [facility] Medical Records Department [address] [place] [address] History & Physical Exam 11/04/23 1530 MR#: [id number] Acct: [id number] Name: ANJUM SERRANO Rep #:[id number] : 1945 78 From: Marcela TOWNSEND PA-C PCP: Dr. Reema Myers MD Status:REG ER Location: ED HPI - General General Date of Admission: 11/04/23 Date of Service: 11/04/23 Chief Complaint: GI bleed HPI Narrative ANJUM SERRANO, is a 78 M who presents with new onset of fatigue and shortness of breath for several days. Patient recently had an upper and lower scope by on 10/19 for anemia. Findings included hemorrhoids, polyps and diverticulosis, erythema of the mucosa of the antrum and gastric lipoma. Pathology demonstrated mild gastritis, tubular adenoma x 2 and hyperplastic polyp. Patient notes he was diagnosed with iron deficiency anemia just prior to his scopes and was placed on iron. Patient had stopped his iron 1 week prior to the scope and has not returned to taking it. Patient is also taking Eliquis which he restarted 2 or 3 days after his scopes. Patient is on Eliquis for A fib. He denies previous myocardial infarction, stroke or blood clots. He denies abdominal pain. He notes dark, tarry stool. No bright red rectal bleeding. He notes a history of constipation. he noted last BM was today however very small. he notes feeling abdominal distention. he has a history of urinary retention andself-caths at home. Patient's Hgb is 5.5 upon admission. BNP is 254.7. [facility] Medical History Alcohol use Anemia Arthritis Back pain BPH (benign prostatic hyperplasia) Burning pain Cardiology follow-up encounter COPD (chronic obstructive pulmonary disease) Difficulty swallowing Essential hypertension High cholesterol History of cardioversion History of echocardiogram History of edema History of pain when walking History of stress test Hyperlipidemia New onset atrial fibrillation (03/14/21) Obesity Prostate disease Restless legs Self-catheterizes urinary bladder Shortness of breath on exertion Syncope Tobacco dependence Wears glasses Wears hearing aid Home Medications omega-3 fatty acids-fish oil 340 mg-1,000 mg capsule 3 ea PO BID supplement 05/31/19 [History Last Taken 10/15/23] apixaban 5 mg tablet (Eliquis) 5 mg PO BID #60 tabs 03/18/21 [Rx Last Taken 10/12/23] atorvastatin 40 mg tablet 40 mg PO QHS 03/18/21 [History Last Taken Unknown] amiodarone 200 mg tablet 200 mg PO DAILY #90 tabs 02/02/23 [Rx Last Taken Unknown] metoprolol tartrate 50 mg tablet 50 mg PO BID this is a dose increase #180 tabs 02/02/23 [Rx Last Taken 10/20/23 07:00] docusate sodium 100 mg capsule 100 mg PO BID 07/01/23 [History Last Taken Unknown] Allergy/AdvReac Type Severity Reaction Status Date / Time No Known Allergies Allergy Verified 11/04/23 12:17 Family History Mother Heart disease Hypertension Thyroid disorder Father Heart disease Brother Hypertension Surgical History History of appendectomy History of transurethral resection of prostate Hx of left cataract extraction Hx of right cataract extraction Social History (Updated 11/04/23 @ 13:58 by Suzanna Montenegro) household members: spouse housing: house Smoking Status: Former smoker quit date: 02/26/21 alcohol intake: current alcohol intake frequency: a few times a month ROS Constitutional Constitutional: Reports systems reviewed and no addt'l complaints, except as documented and fatigue Eyes Eyes: Reports systems reviewed and no addt'l complaints, except as documented ENT HEENT: Reports systems reviewed and no addt'l complaints, except as documented Cardiovascular Cardiovascular: Reports systems reviewed and no addt'l complaints, except as documented Respiratory/Chest Respiratory/Chest: Reports systems reviewed and no addt'l complaints, except as documented Gastrointestinal Gastrointestinal: Reports systems reviewed and no addt'l complaints, except as documented Genitourinary Genitourinary: Reports systems reviewed and no addt'l complaints, except as documented Musculoskeletal Musculoskeletal: Reports systems reviewed and no addt'l complaints, except as documented Integumentary Integumentary: Reports systems reviewed and no addt'l complaints, except as documented Neurologic Neurologic: Reports systems reviewed and no addt'l complaints, except as documented Psychiatric Psychiatric: Reports systems reviewed and no addt'l complaints, except as documented Endocrine Endocrinology: Reports systems reviewed and no addt'l complaints, except as documented Hematologic/Lymphatic Hematologic/Lymphatic: Reports systems reviewed and no addt'l complaints, exceptas documented Allergic/Immunologic Allergic/Immunologic: Reports systems reviewed and no addt'l complaints, except as documented Vital Signs Vital Signs Vital Signs: 11/04/23 12:16 11/04/23 12:16 11/04/23 13:57 Temperature 96.1 F L Temperature Source Temporal Pulse Rate 67 71 66 Respiratory Rate 14 16 17 Blood Pressure 87/57 L 108/57 L 107/70 Blood Pressure Mean 67 74 82 Pulse Ox 100 100 100 Oxygen Delivery Method Room Air 11/04/23 14:00 11/04/23 15:00 11/04/23 15:20 Temperature 96.1 F L Temperature Source Pulse Rate 70 70 70 Respiratory Rate 20 H 17 17 Blood Pressure 104/65 119/72 119/72 Blood Pressure Mean 78 87 87 Pulse Ox 97 97 97 Oxygen Delivery Method Weight Weight: 169 lb 5.04 oz Body Mass Index (BMI) 22.3 Physical Exam Const alert, oriented x3 and no apparent distress HEENT normocephalic and head/scalp atraumatic Eyes PERRL Neck full ROM Lymph Lymphatic: no lymphadenopathy noted Chest inspection of chest normal Resp normal respiratory effort, normal air movement and clear to auscultation bilaterally Cardio regular rate and regular rhythm GI Inspection: abdominal distention Auscultation: hypoactive bowel sounds Palpation: soft and firm; Negative for tender, guarding or rigid Percussion: tympanic to percussion no CVA tenderness Back/Spine no CVA tenderness Extremity normal to inspection Skin no rashes or lesions noted Neuro no focal motor deficits and no sensory deficits noted Psych mental status grossly normal, thought process normal, cooperative and affect normal Results Lab / Micro Data 11/04/23 13:45 11/04/23 13:45 Labs: Laboratory Results - last 24 hr 11/04/23 13:45: WBC 8.7, RBC 1.94 L, Hgb 5.5 L*, Hct 19.2 L, MCV 99.0 H, MCH 28.4, MCHC 28.6 L, RDW Std Deviation 61.5 H, RDW Coeff of Christina 17.2 H, Plt Count 160, MPV 10.9, Immature Gran % (Auto) NEEDLEWORKER, Neut % (Auto) NEEDLEWORKER, Lymph % (Auto) NEEDLEWORKER, [place]ock[place] % (Auto) NEEDLEWORKER, Eos % (Auto) NEEDLEWORKER, Baso % (Auto) NEEDLEWORKER, Absolute Neuts (auto) 6.1, Absolute Lymphs (auto) 1.00, Total Counted 100, Neutrophils % (Manual) 68, Band Neutrophils % 2, Lymphocytes % (Manual) 12 L, Monocytes % (Manual) 4, Eosinophils % (Manual) 5, Basophils % (Manual) 2 H, Metamyelocytes % 3 H, Myelocytes % 1 H, Promyelocytes % 3 H, Nucleated RBC % NEEDLEWORKER, Diff Path Review May foll, Platelet Estimate ADEQUATE, RBC Morphology NORM C+C, Sodium 140, Potassium4.3, Chloride 109 H, Carbon Dioxide 26.0, Anion Gap 5, BUN 22 H, Creatinine 1.17, Est GFR (MDRD) Af Amer 77, Est GFR (MDRD) Non-Af 64, BUN/Creatinine Ratio 18.8, Glucose 165 H, Calcium 8.7, Total Bilirubin 0.50, AST 13 L, ALT 21, Alkaline Phosphatase 46, Troponin I High Sens 11, B-Natriuretic Peptide 254.7 H,Total Protein 6.5, Albumin 3.2, Globulin 3.3, Albumin/Globulin Ratio 1.0 11/04/23 15:05: Crossmatch See Detail Micro: Microbiology 11/04/23 12:48 Stool Stool Occult Blood (FANNY) - Final Occult Blood Positive Imaging Radiology Impression Chest X-Ray 11/04/23 13:16 IMPRESSION: Hyperinflation. Persistent increased interstitial markings at the lung bases suggestive of scarring although there has been some improvement as compared to prior study. Electronically Signed: Brian Duran MD at 13:38 EDT , Assessment & Plan Assessment/Plan (1) Acute GI bleeding: PLAN: I am seeing this patient in conjunction with Dr. Navarrete. She will independently evaluate this patient. Patient presents with shortness of breath and fatigue with a Hgb of 5.5. Plan to admit patient, IV fluids, bowel prep, transfuse PRBC. Plan to hold Eliquis. Patient will need straight cathed as needed per his schedule at home. Dr. Navarrete will plan to perform an upper and lower scope with possible biopsies, possible cessation of bleeding. Patient has had the opportunity to ask and have questions answered. Patient verbally understands and agrees with the plan. Thank you for allowing us to participate in this patient's care. Charges/Coding Visit Charges Office Visits / Consults: 99472 IP Consult L3 11/04/23 9705 <Electronically signed by Marcela TOWNSEND PA-C> Cosigner Signature (if applicable): CC: MOLLY Lassiter; Dr. Reema Myers MD~ Signed [facility] Work Phone: 1(104) 304-510305-09-2024 Discharge summary Author Fitz Denney [facility] November 04, 2023 4:41pm Note Date/Time November 04, 2023 1:00pm [facility] Medical Records Department [address] [place] [address] Emergency Department Summary 11/04/23 MR#: [id number] Acct: [id number] Name: ANJUM SERRANO Rep #:[id number] : 1945 78 From: Rhea TOWNSEND PCP: Dr. Reema Myers MD Status:REG ER Location: ED HPI <KRISTIAN Lyons - Last Filed: 11/04/23 15:19> History of Present Illness Chief Complaint: GI Bleed Narrative Narrative: Patient presenting due to shortness of breath. He reports that he began feelingshort of breath in the summer 2022 and has gotten progressively worse since then, especially over the last few weeks. He recently had a echocardiogram thatshowed an EF of 55%. He reports that he is now only able to walk about 50 feet without getting short of breath, even showering makes him feel this way. He does have a PMH of hypertension, atrial fibrillation on Eliquis, and EDEN. He recently had a sleep study but has not yet started any treatment for his sleep apnea. He has had intermittent black stools over the past few weeks, he was found to have iron deficiency anemia and had both a colonoscopy and endoscopy recently, several polyps were removed but otherwise was told his tests were unremarkable. He last had a black stool yesterday and this morning it was brown. He also endorses swelling to his bilateral lower extremities that he hashad over the past few weeks that started after going on a long car ride to [place]. He denies any fevers, chills, chest pain, abdominal pain, nausea, or vomiting. PFSH <KRISTIAN Lyons - Last Filed: 11/04/23 15:19> [facility] Medical History Alcohol use Anemia Arthritis Back pain BPH (benign prostatic hyperplasia) Burning pain Cardiology follow-up encounter COPD (chronic obstructive pulmonary disease) Difficulty swallowing Essential hypertension High cholesterol History of cardioversion History of echocardiogram History of edema History of pain when walking History of stress test Hyperlipidemia New onset atrial fibrillation (03/14/21) Obesity Prostate disease Restless legs Self-catheterizes urinary bladder Shortness of breath on exertion Syncope Tobacco dependence Wears glasses Wears hearing aid Home Medications omega-3 fatty acids-fish oil 340 mg-1,000 mg capsule 3 ea PO BID supplement 05/31/19 [History Last Taken 10/15/23] apixaban 5 mg tablet (Eliquis) 5 mg PO BID #60 tabs 03/18/21 [Rx Last Taken 10/12/23] atorvastatin 40 mg tablet 40 mg PO QHS 03/18/21 [History Last Taken Unknown] amiodarone 200 mg tablet 200 mg PO DAILY #90 tabs 02/02/23 [Rx Last Taken Unknown] metoprolol tartrate 50 mg tablet 50 mg PO BID this is a dose increase #180 tabs 02/02/23 [Rx Last Taken 10/20/23 07:00] docusate sodium 100 mg capsule 100 mg PO BID 07/01/23 [History Last Taken Unknown] Allergy/AdvReac Type Severity Reaction Status Date / Time No Known Allergies Allergy Verified 11/04/23 12:17 Family History Mother Heart disease Hypertension Thyroid disorder Father Heart disease Brother Hypertension Surgical History History of appendectomy History of transurethral resection of prostate Hx of left cataract extraction Hx of right cataract extraction Social History (Updated 11/04/23 @ 13:58 by Suzanna Montenegro) household members: spouse housing: house Smoking Status: Former smoker quit date: 02/26/21 alcohol intake: current alcohol intake frequency: a few times a month ROS <KRISTIAN Lyons - Last Filed: 11/04/23 15:19> ROS ED Constitutional Constitutional ED: Denies chills or fever(s) Cardiovascular Cardiovascular: Denies chest pain or palpitations Respiratory/Chest Respiratory/Chest: Reports dyspnea on exertion; Denies cough or wheezing Gastrointestinal Gastrointestinal: Reports melena; Denies abdominal pain, nausea or vomiting Genitourinary Genitourinary ED: Denies dysuria, hematuria or urinary urgency Musculoskeletal Musculoskeletal: Denies arthralgias or myalgias Integumentary Denies rash Neurologic Neurologic: Denies weakness EXAM <KRISTIAN Lyons - Last Filed: 11/04/23 15:19> Physical Exam Const Vital Signs: 11/04/23 12:16 11/04/23 12:16 11/04/23 13:57 Temperature 96.1 F L Temperature Source Temporal Pulse Rate 67 71 66 Respiratory Rate 14 16 17 Blood Pressure 87/57 L 108/57 L 107/70 Blood Pressure Mean 67 74 82 Pulse Ox 100 100 100 Oxygen Delivery Method Room Air 11/04/23 14:00 11/04/23 15:00 11/04/23 15:20 Temperature 96.1 F L Temperature Source Pulse Rate 70 70 70 Respiratory Rate 20 H 17 17 Blood Pressure 104/65 119/72 119/72 Blood Pressure Mean 78 87 87 Pulse Ox 97 97 97 Oxygen Delivery Method 11/04/23 13:25 11/04/23 13:30 11/04/23 13:45 Temperature Temperature Source Pulse Rate 79 74 73 Respiratory Rate 20 H 18 18 Blood Pressure Blood Pressure Mean Pulse Ox 98 99 100 Oxygen Delivery Method 11/04/23 13:56 11/04/23 14:00 11/04/23 14:15 Temperature Temperature Source Pulse Rate 65 68 72 Respiratory Rate 18 18 20 H Blood Pressure 107/70 104/65 101/77 Blood Pressure Mean 82 77 86 Pulse Ox 100 Oxygen Delivery Method Room Air 11/04/23 14:30 11/04/23 14:45 11/04/23 15:00 Temperature Temperature Source Pulse Rate 67 73 Respiratory Rate 21 H 19 H Blood Pressure 106/77 119/90 H 119/72 Blood Pressure Mean 87 100 86 Pulse Ox Oxygen Delivery Method 11/04/23 15:15 11/04/23 15:30 11/04/23 15:45 Temperature Temperature Source Pulse Rate 79 64 Respiratory Rate 22 H 17 Blood Pressure 101/68 114/71 104/69 Blood Pressure Mean 78 83 81 Pulse Ox Oxygen Delivery Method Room Air 11/04/23 16:00 Temperature Temperature Source Pulse Rate 68 Respiratory Rate 18 Blood Pressure 111/74 Blood Pressure Mean 87 Pulse Ox 93 Oxygen Delivery Method Room Air Positive well nourished, well developed and no apparent distress General Appearance ED: well developed HEENT Reports normocephalic and head/scalp atraumatic Mouth ED: Yes moist mucous membranes normal Eyes PERRL and EOMs intact bilaterally Neck full ROM and supple Chest Wall inspection of chest normal Resp normal respiratory effort and clear to auscultation bilaterally Cardio regular rate and regular rhythm GI soft to palpation, non-tender, non-distended and no masses GI Narrative: Rectal exam: Performed with nurse in the room, normal sphincter tone, brown stool Back/Spine normal ROM and normal to inspection Extremity full ROM Extremity Narrative: Minimal equal nonpitting edema to the bilateral lower extremities at the feet and ankles. Neuro oriented x3, CN's II-XII intact bilaterally, moves all extremities, no focal motor deficits and no sensory deficits noted Sensorium / Orientation: awake and alert Psych mental status grossly normal and thought process normal Skin no rashes or lesions noted and no wounds <Dr. Fitz Denney, DO - Last Filed: 11/04/23 16:41> Physical Exam Const Vital Signs: 11/04/23 12:16 11/04/23 12:16 11/04/23 13:57 Temperature 96.1 F L Temperature Source Temporal Pulse Rate 67 71 66 Respiratory Rate 14 16 17 Blood Pressure 87/57 L 108/57 L 107/70 Blood Pressure Mean 67 74 82 Pulse Ox 100 100 100 Oxygen Delivery Method Room Air 11/04/23 14:00 11/04/23 15:00 11/04/23 15:20 Temperature 96.1 F L Temperature Source Pulse Rate 70 70 70 Respiratory Rate 20 H 17 17 Blood Pressure 104/65 119/72 119/72 Blood Pressure Mean 78 87 87 Pulse Ox 97 97 97 Oxygen Delivery Method 11/04/23 13:25 11/04/23 13:30 11/04/23 13:45 Temperature Temperature Source Pulse Rate 79 74 73 Respiratory Rate 20 H 18 18 Blood Pressure Blood Pressure Mean Pulse Ox 98 99 100 Oxygen Delivery Method 11/04/23 13:56 11/04/23 14:00 11/04/23 14:15 Temperature Temperature Source Pulse Rate 65 68 72 Respiratory Rate 18 18 20 H Blood Pressure 107/70 104/65 101/77 Blood Pressure Mean 82 77 86 Pulse Ox 100 Oxygen Delivery Method Room Air 11/04/23 14:30 11/04/23 14:45 11/04/23 15:00 Temperature Temperature Source Pulse Rate 67 73 Respiratory Rate 21 H 19 H Blood Pressure 106/77 119/90 H 119/72 Blood Pressure Mean 87 100 86 Pulse Ox Oxygen Delivery Method 11/04/23 15:15 11/04/23 15:30 11/04/23 15:45 Temperature Temperature Source Pulse Rate 79 64 Respiratory Rate 22 H 17 Blood Pressure 101/68 114/71 104/69 Blood Pressure Mean 78 83 81 Pulse Ox Oxygen Delivery Method Room Air 11/04/23 16:00 Temperature Temperature Source Pulse Rate 68 Respiratory Rate 18 Blood Pressure 111/74 Blood Pressure Mean 87 Pulse Ox 93 Oxygen Delivery Method Room Air [facility] <KRISTIAN Lyons - Last Filed: 11/04/23 15:19> [facility] Narrative Medical decision making narrative: Patient presenting with shortness of breath on exertion he has had chronically but has gotten worse over the past few weeks. He is now only able to ambulate about 50 feet before he feels short of breath. He recently had a colonoscopy and endoscopy on 10/[address] Navarrete, I did review these reports, he had several polyps removed and a biopsy was taken. Echo was performed 10/23 with an EF of 55%. Differentials include CHF exacerbation versus GI bleed. Cardiac workup obtained, troponin WNL, BNP slightly elevated at 254, chest x-ray negative for any acute findings. I did perform a rectal examination, brown stoolnoted but stool occult is positive. H&H is 5.5 and 19.2, he will be transfused 2 units of blood. He is on Eliquis. The attending did speak with Dr. Hussein, he will admit patient under his service for further workup and treatment. Patient admitted in stable condition. Lab Data Attestation: I reviewed the patient's lab results. Lab results narrative: H&H 5.5 and 19.2, BUN 22, BNP 254, troponin 11 Labs: Laboratory Results - last 24 hr 11/04/23 11/04/23 13:45 15:05 WBC 8.7 RBC 1.94 L Hgb 5.5 L* Hct 19.2 L MCV 99.0 H MCH 28.4 MCHC 28.6 L RDW Std Deviation 61.5 H RDW Coeff of Christina 17.2 H Plt Count 160 MPV 10.9 Immature Gran % (Auto) NEEDLEWORKER Neut % (Auto) NEEDLEWORKER Lymph % (Auto) NEEDLEWORKER Hockley % (Auto) NEEDLEWORKER Eos % (Auto) NEEDLEWORKER Baso % (Auto) NEEDLEWORKER Absolute Neuts (auto) 6.1 Absolute Lymphs (auto) 1.00 Total Counted 100 Neutrophils % (Manual) 68 Band Neutrophils % 2 Lymphocytes % (Manual) 12 L Monocytes % (Manual) 4 Eosinophils % (Manual) 5 Basophils % (Manual) 2 H Metamyelocytes % 3 H Myelocytes % 1 H Promyelocytes % 3 H Nucleated RBC % NEEDLEWORKER Diff Path Review May foll Platelet Estimate ADEQUATE RBC Morphology NORM C+C Sodium 140 Potassium 4.3 Chloride 109 H Carbon Dioxide 26.0 Anion Gap 5 BUN 22 H Creatinine 1.17 Est GFR (MDRD) Af Amer 77 Est GFR (MDRD) Non-Af 64 BUN/Creatinine Ratio 18.8 Glucose 165 H Calcium 8.7 Total Bilirubin 0.50 AST 13 L ALT 21 Alkaline Phosphatase 46 Troponin I High Sens 11 B-Natriuretic Peptide 254.7 H Total Protein 6.5 Albumin 3.2 Globulin 3.3 Albumin/Globulin Ratio 1.0 Antibody Screen NEGATIVE Crossmatch See Detail Radiography X-Ray: Read by ED Physician Diagnostic Testing: Clinical Impression(s) from Imaging Studies Chest X-Ray 11/04/23 13:16 IMPRESSION: Hyperinflation. Persistent increased interstitial markings at the lung bases suggestive of scarring although there has been some improvement as compared to prior study. Electronically Signed: Brian Duran MD at 13:38 EDT , EKG Initial EKG: Comments: 76 bpm, atrial fibrillation, no ST elevation, reviewed and interpreted by attending ED physician <Dr. Fitz Denney, DO - Last Filed: 11/04/23 16:41> [facility] MDM Narrative Medical decision making narrative: Patient presenting with shortness of breath on exertion he has had chronically but has gotten worse over the past few weeks. He is now only able to ambulate about 50 feet before he feels short of breath. He recently had a colonoscopy and endoscopy on 10/[address] Navarrete, I did review these reports, he had several polyps removed and a biopsy was taken. Echo was performed 10/23 with an EF of 55%. Differentials include CHF exacerbation versus GI bleed. Cardiac workup obtained, troponin WNL, BNP slightly elevated at 254, chest x-ray negative for any acute findings. I did perform a rectal examination, brown stoolnoted but stool occult is positive. H&H is 5.5 and 19.2, he will be transfused 2 units of blood. He is on Eliquis. The attending did speak with Dr. Hussein, he will admit patient under his service for further workup and treatment. Patient admitted in stable condition. This patient was seen with a PA/NEEDLEWORKER Individually assessed they patient including history and physical. I have reviewed everything on the chart that is availableand agree with the documentation provided by the PA/NEEDLEWORKER including discussion about the assessment, treatment plan, discussion, and return precautions. Patient presenting with worsening shortness of breath. Recently had low hemoglobins and saw Dr. Cason from for this. Colonoscopy was performed and several biopsies of polyps were performed as well. Patient with acutely lower hemoglobin worsening symptoms. Patient was typed, screened, crossmatch 2 units. Hemoglobin 5.5. Patient with history of CHF so we did do cardiac evaluation and his BNP is 254.7. High-sensitivity troponin is 11. EKG sinus rhythm 76 bpmwithout sign ischemic change. Chest x-ray my interpretation shows nothing acute. Radiology interpretation agrees. Discussed the case with Dr. Husseinwho is on-call for surgery. Patient will be admitted to medicine. Impression: 1. Acute blood loss anemia 2. GI bleed 3. Dyspnea 4. Lightheadedness Lab Data Labs: Laboratory Results - last 24 hr 11/04/23 11/04/23 13:45 15:05 WBC 8.7 RBC 1.94 L Hgb 5.5 L* Hct 19.2 L MCV 99.0 H MCH 28.4 MCHC 28.6 L RDW Std Deviation 61.5 H RDW Coeff of Christina 17.2 H Plt Count 160 MPV 10.9 Immature Gran % (Auto) NEEDLEWORKER Neut % (Auto) NEEDLEWORKER Lymph % (Auto) NEEDLEWORKER Hockley % (Auto) NEEDLEWORKER Eos % (Auto) NEEDLEWORKER Baso % (Auto) NEEDLEWORKER Absolute Neuts (auto) 6.1 Absolute Lymphs (auto) 1.00 Total Counted 100 Neutrophils % (Manual) 68 Band Neutrophils % 2 Lymphocytes % (Manual) 12 L Monocytes % (Manual) 4 Eosinophils % (Manual) 5 Basophils % (Manual) 2 H Metamyelocytes % 3 H Myelocytes % 1 H Promyelocytes % 3 H Nucleated RBC % NEEDLEWORKER Diff Path Review May foll Platelet Estimate ADEQUATE RBC Morphology NORM C+C Sodium 140 Potassium 4.3 Chloride 109 H Carbon Dioxide 26.0 Anion Gap 5 BUN 22 H Creatinine 1.17 Est GFR (MDRD) Af Amer 77 Est GFR (MDRD) Non-Af 64 BUN/Creatinine Ratio 18.8 Glucose 165 H Calcium 8.7 Total Bilirubin 0.50 AST 13 L ALT 21 Alkaline Phosphatase 46 Troponin I High Sens 11 B-Natriuretic Peptide 254.7 H Total Protein 6.5 Albumin 3.2 Globulin 3.3 Albumin/Globulin Ratio 1.0 Antibody Screen NEGATIVE Crossmatch See Detail Radiography Diagnostic Testing: Clinical Impression(s) from Imaging Studies Chest X-Ray 11/04/23 13:16 IMPRESSION: Hyperinflation. Persistent increased interstitial markings at the lung bases suggestive of scarring although there has been some improvement as compared to prior study. Electronically Signed: Brian uDran MD at 13:38 EDT Reading Location ID and State: [facility] / [place] , Service support , Discharge Plan Dx/Rx/DC Orders Clinical Impression: Leg edema, Shortness of breath, custodial current use of anticoagulant, Longstanding persistent atrial fibrillation, Acute GI bleeding Disposition Disposition: Acute Care Hospital [facility] What to do if you have Problems For any increased pain, shortness of breath, bleeding, nausea or vomiting, chestpain, or any unexpected problems, contact your Primary Care Provider. Call [facility] ([phone]) or report to the closest Emergency Room. Call 911 if necessary. 11/04/23 1519 <Electronically signed by Rhea TOWNSEND> Cosigner Signature (if applicable): 11/04/23 1641 <Electronically signed by Fitz Denney DO> CC: Dr. Reema Myers MD ~ Signed [facility] Work Phone: 1(480) 124-866704-24-2024 Procedure [facility] 10-20-2023 Procedure [facility]04-24-[address] [facility]04-24-2024 Procedure [facility] 06-30-2023 Procedure [facility]12-31-[address] [facility]09-17-2021 Evaluation note* Diagnosis Onset Date Resolution Status Dizziness acute Fatigue acute New onset atrial fibrillation March 14, 2021 acute Essential hypertension chron ic Hyperlipidemia [facility] Work Phone: 1(419) 317-993909-17-2021 Evaluation note* Diagnosis Onset Date Resolution Status Dizziness acute Fatigue acute New onset atrial fibrillation March 14, 2021 acute Essential hypertension chron ic Hyperlipidemia chronic Longstanding persistent atrial fibrillation acute Essential hypertension chron ic Hyperlipidemia chronic Longstanding persistent atrial fibrillation acute [facility] Work Phone: 1(833) 221-146409-17-2021 Evaluation note* Diagnosis Onset Date Resolution Status Daytime hypersomnia acute Lung nodule acute COPD (chronic obstructive pulmonary disease) chronic New onset atrial fibrillation March 14, 2021 chronic Anemia acute Acute GI bleeding acute Leg edema acute 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 acute Longstanding persistent atrial fibrillation acute Shortness of breath acute [facility] Work Phone: 1(485) 822-923709-17-2021 Evaluation note* Diagnosis Onset Date Resolution Status Daytime hypersomnia acute Lung nodule acute COPD (chronic obstructive pulmonary disease) chronic New onset atrial fibrillation March 14, 2021 chronic Anemia acute Acute GI bleeding acute Anemia acute custodial current use of anticoagulant acute Exertional dyspnea acute Leg edema acute Longstanding persistent atrial fibrillation acute Shortness of breath acute [facility] Work Phone: Evaluation note* Diagnosis Onset Date Resolution Status Longstanding persistent atrial fibrillation acute Essential hypertension chron ic Hyperlipidemia chronic Longstanding persistent atrial fibrillation acute Longstanding persistent atrial fibrillation acute Essential hypertension chron ic Hyperlipidemia [facility] Work Phone: Evaluation note* Diagnosis Onset Date Resolution Status Longstanding persistent atrial fibrillation acute Longstanding persistent atrial fibrillation acute Essential hypertension chron ic Hyperlipidemia chronic Longstanding persistent atrial fibrillation acute [facility] Work Phone: Evaluation note* Diagnosis Onset Date Resolution Status Longstanding persistent atrial fibrillation acute Essential hypertension chron ic Hyperlipidemia [facility] Work Phone: Evaluation noteNo assessment information available [facility] Work Phone: Evaluation note* Diagnosis Onset Date Resolution Status Longstanding persistent atrial fibrillation acute COPD (chronic obstructive pulmonary disease) chronic Nicotine dependence, cigarettes, in remission chronic [facility] Work Phone: Evaluation note* Diagnosis Onset Date Resolution Status Longstanding persistent atrial fibrillation acute COPD (chronic obstructive pulmonary disease) chronic Nicotine dependence, cigarettes, in remission chronic Daytime hypersomnia acute Lung nodule acute COPD (chronic obstructive pulmonary disease) chronic New onset atrial fibrillation March 14, [address] [facility] Work Phone: Evaluation note* Diagnosis Onset Date Resolution Status Longstanding persistent atrial fibrillation acute COPD (chronic obstructive pulmonary disease) chronic Nicotine dependence, cigarettes, in remission chronic Daytime hypersomnia acute Lung nodule acute COPD (chronic obstructive pulmonary disease) chronic New onset atrial fibrillation March 14, 2021 chronic [address] acute [facility] Work Phone: History and physical note Author Lilly Navarrete [facility] October 20, 2023 8:03am Note Date/Time October 20, 2023 8:0 3am [facility] Medical Records Department [address] [place] [id number] History & Physical Exam 10/20/23 0803 MR#: [id number] Acct: [id number] Name: ANJUM SERRANO Rep #:[id number] : 1945 78 From: Lilly Navarrete MD PCP: Dr. Reema Myers MD Status:[facility] Location: [place] [address] History and Physical Date of Admission: 10/20/23 Date of Service: 09/29/23 MR#: [id number] Acct: [id number] Name: ANJUM SERRANO Rep #: [id number] : 1945 Provider: Dr. Lilly Navarrete MD Age/Sex: 78/M Location: [facility] Status: Signed Intake Vital Signs 08/13/2407:29 09/28/2412:59 Height 6 ft 1 in 6 ft 1 in Weight: 245 lb BMI 32.3 BP 101/67 Blood Pressure Location Rt brachial Position Sitting Respiration 17 Pulse 73 Pulse Source Monitor Pulse Oximetry (%) 95 Oxygen Delivery Method room air Intake Visit Reasons: ANEMIA, SCREENING COLONOSCOPY/EGD Chief Complaint: anemia,screening colonoscopy/egd Is patient in pain?: No Allergies No Known Allergies Allergy (Verified 09/29/23 14:02) Medications omega-3 fatty acids-fish oil 340 mg-1,000 mg capsule 3 ea PO BID supplement 05/31/19 [History Confirmed 09/29/23] apixaban 5 mg tablet (Eliquis) 5 mg PO BID #60 tabs 03/18/21 [Rx Confirmed 09/29/23] atorvastatin 40 mg tablet 40 mg PO QHS 03/18/21 [History Confirmed 09/29/23] amiodarone 200 mg tablet 200 mg PO DAILY #90 tabs 02/02/23 [Rx Confirmed 09/29/23] metoprolol tartrate 50 mg tablet 50 mg PO BID this is a dose increase #180 tabs 02/02/23 [Rx Confirmed 09/29/23] docusate sodium 100 mg capsule 100 mg PO BID 07/01/23 [History Confirmed 09/29/23] furosemide 40 mg tablet 40 mg PO .COMPLEX #5 tabs 09/09/23 [Rx Confirmed 09/29/23] PFSH Medical History BPH (benign prostatic hyperplasia) Cataracts, bilateral Essential hypertension Hyperlipidemia New onset atrial fibrillation (03/14/21) Obesity Tobacco dependence Surgical History History of appendectomy History of transurethral resection of prostate Family History Mother Heart disease Hypertension Thyroid disorderFather Heart diseaseBrother Hypertension Social History Smoking Status: Former smoker quit date: 02/26/21 alcohol intake: current alcohol intake frequency: a few times a month HPI HPI HPI: 78-year-old male presents for EGD and colonoscopy due to anemia. Patient's hemoglobin is noted to be 9.8 last check was 14.7 that was in January 2023. Patient is currently on Eliquis due to A-fib currently he is actually off Eliquis due to drop in hemoglobin. Patient states he has bowel movements every other day describes them as dark brown denies black or red stools. Patient states he does typically have problems constipation does take fish oil as well as Colace to help with this. Patient not sure how much fiber he gets in his diet does not think he drinks enough liquids mostly green tea. Patient is currently on iron. Patient does state he noticed some new abdominal bloating and weight gain from 227-240 per patient-did mention snacking could have something to do with that. Patient states he had a colonoscopy 10 or 12 years ago that was negative as far as he remembers. Patient denies any family historyof colon cancer. ROS General General: Yes weight change and fatigue; No appetite, colon cancer, breast cancer or weakness HEENT HEENT: No difficulty swallowing, eye injury, eye surgery, swollen glands or hoarseness Endo Endocrine: No thyroid disease, diabetes mellitus, thyroid cancer, Hair loss, heat intolerance or cold intolerance Skin Skin: No rash or changing moles Musc Musculoskeletal: Yes back problems and arthritis; No rheumatoid arthritis, gout or joint pain Cardio Cardiovascular: Yes atrial fibrillation and high blood pressure; No murmur, pacemaker, heart disease, heart attack, heart stent, palpitations, shortness of breat with exertion or chest pain Psych Psychiatric: No depression, anxiety or hearing voices Resp Respiratory: Yes shortness of breath, Yes sleep apnea, Yes cough, Yes COPD, No asthma, No emphysema and No wheezing Gastro Gastrointestinal: No abdominal pain, No nausea or vomiting, No diarrhea, Yes constipation, Yes blood in stool, No acid reflux, No hemorrhoids, No ulcers, No gallbladder problem and No black,tarry stools Jamaal Hematologic: Yes blood thinners, No blood disorders, No bleeding, No anemia and No blood clots Neuro Neurologic: No system reviewed and no additional complaints, except as documented, No as per HPI, No abnormal gait, No abnormal hearing, No abnormal movements, No abnormal speech, No behavioral changes, No burning sensations, No confusion, No convulsions, No disequilibrium, No dizziness, No localized weakness, No frequent falls, No headache(s), No lack of coordination, No loss ofvision, No memory loss, No numbness, No other visual disturbances, No radicular pain, No restless legs, No sensory deficit, No syncope, No tingling, No tremor(s), No weakness and No other Exam Const General: cooperative, healthy appearing, comfortable and no acute distress [facility] Head: normocephalic and atraumatic Neck Neck: supple Resp Effort & Inspection: normal respiratory effort Cardio Rate: regular rate GI Inspection: non-distended Palpation: soft, no hernias and nontender Skin General: no rashes or lesions noted Neuro General: CN's II-XI intact bilaterally Extrem General: normal to inspection Psych Mental Status: mental status grossly normal Attitude: cooperative Assessment and Plan Assessment and Plan (1) Anemia: Status: Acute Plan Patient is currently off his Eliquis due to the drop in hemoglobin. Will try toplan on EGD and colonoscopy shortly. Will also have him hold his fish oil. I have discussed the above with the patient. I have offered the patient esophagogastroduodenoscopy and colonoscopy for evaluation. I have explained the risks/benefits of the procedure and described the procedure. I have discussed the risks with the patient, including but not limited to: infection, bleeding, perforation of the GI tract requiring emergency surgery, inability to complete the procedure, injury to any internal organs, complications of anesthesia, etc. - the patient understands and agrees to proceed. I have answered all the patient's questions to the patient's satisfaction and the patient has no further questions. The patient has been given instructions for the colon cleansing preparation. 1 day of clears, MiraLAX Dulcolax prep. Lilly Navarrete M.D. Pager: [phone] [facility] [address] [place] [address], [facility], [address] [place] [address] Office: [phone] Coding Level of Care Code Off vis,new,level 3 Diagnoses Anemia D64.9 09/30/23 1253 <Electronically signed by Lilly Navarrete MD> Date Lilly Navarrete MD 10/20/23 08 <Electronically signed by Lilly Navarrete MD> Cosigner Signature (if applicable): CC: Dr. Reema Myers MD; Dr. Lilly Navarrete MD~ Signed ADDENDUM by Dr. Lilly Navarrete MD on 10/20/23 at 0803 Addendum I have examined the patient and the H&P has been reviewed. There are no clinicalchanges since date of exam. 10/20/23802<Electronically signed by Lilly Navarrete MD> Cosigner Signature (if applicable): cc: Dr. Reema Myers MD; Dr. Lilly Navarrete MD ~* Signed [facility] Work Phone: Reason for referral (narrative)No reason for referral [facility]: Instructions Name Dates Details How [...] Instructions for Treatment Summary Purpose Family History Relationship Condition Age at Onset Recorded Date/T quentin mother Cardiac disease Unknown Hypertension Unknown Disorder of thyroid Unknown father Cardiac disease Unknown brother Hypertension Unknown No Family History Records Found Advance Directives No Advanced Directives Records Found Advance Directive Response Recorded Date/ Time Advance Directives No July 3:15pm Living Will No June 07 019 4:04pm Power of Solutions Architect Consultant No June 07, 2019 4:04pm Advance Directive Response Recorded Date/ Time Advance Directives on File Yes 2021 10:58am Name of Medical Power of Solutions Architect Consultant Nan Montano n- February 02, 2022 10:58am Advance Directives Yes February 02 022 10:58am Living Will Yes February 02, 2022 10:58am Power of Solutions Architect Consultant Yes February 02 10:58am Advance Directive Response Recorded Date/ Time Advance Directives on File Yes 2021 9:58am Name of Medical Power of Solutions Architect Consultant Nan Montano n- February 02, 2022 9:58am Advance Directives No May 06, 2022 10:43am Living Will No May 06 10:43am Power of Solutions Architect Consultant No May 06, 2022 10:43am Advance Directive Response Recorded Date/ Time Advance Directives on File Yes Augus t 2021 9:58am Name of Medical Power of Solutions Architect Consultant Nan Montano n- February 02, 2022 9:58am Advance Directives No April 10:42am Living Will No May 27 10:42am Power of Solutions Architect Consultant No May 27, 2022 10:42am Advance Directive Response Recorded Date/ Time Advance Directives No February 03 6:23pm Living Will No February 03, 2023 6:23pm Power of Solutions Architect Consultant No February 03 6:23pm Advance Directive Response Recorded Date/ Time Advance Directives No February 03 5:23pm Living Will No February 03, 2023 5:23pm Power of Solutions Architect Consultant No February 03 5:23pm Advance Directive Response Recorded Date/ Time Name of Medical Power of Solutions Architect Consultant SPOUSE October 19, 2023 8:46am Advance Directives No February 03 6:23pm Living Will Yes October 19, 2023 8:46am Power of Solutions Architect Consultant Yes October 18 8:46am Advance Directive Response Recorded Date/ Time Name of Medical Power of Solutions Architect Consultant SPOUSE October 19, 2023 8:46am Name of Medical Power of Solutions Architect Consultant November 04, 2023 3:20pm Advance Directives No February 03 6:23pm Living Will Yes November 04, 2023 3: 20pm Power of Solutions Architect Consultant Yes November 04, 2023 3:20pm Advance Directive Response Recorded Date/ Time Name of Medical Power of Solutions Architect Consultant SPOUSE October 19, 2023 8:46am Name of Medical Power of Solutions Architect Consultant November 04, 2023 6:23pm Advance Directives No February 03 6:23pm Living Will Yes November 04, 2023 6: 23pm Power of Solutions Architect Consultant Yes November 04, 2023 6:23pm Advance Directive Response Recorded Date/ Time Living Will Yes November 04, 2023 6: 23pm Do you have a Healthcare Power of Solutions Architect Consultant? Yes November 04, 2023 6:23pm Advance Directives No February 03 6:23pm Chief Complaint and Reason for Visit Chief Complaint Amb Documentation 6 M FU/WE RS FROM MANAGER EMERGENCY 4/5 E-ORDER Reason for Visit Dizziness Fatigue New onset atrial fibrillation Essential hypertension Hyperlipidemia Chief Complaint Amb Documentation 6 M FU/WE RS FROM MANAGER EMERGENCY 4/5 E-ORDER DIZZINESS Reason for Visit Dizziness Fatigue New onset atrial fibrillation Essential hypertension Hyperlipidemia Chief Complaint Amb Documentation 6 M FU/WE RS FROM MANAGER EMERGENCY 4/5 E-ORDER DIZZINESS 2-3 MO F/U PERSISTENT A-FIB PERSISTENT A-FIB PERSISTENT A-FIB Reason for Visit Dizziness Fatigue New onset atrial fibrillation Essential hypertension Hyperlipidemia Longstanding persistent atrial fibrillation Essential hypertension Hyperlipidemia Longstanding persistent atrial fibrillation Chief Complaint 2-3 MO F/U PERSISTENT A-FIB PERSISTENT A-FIB PERSISTENT A-FIB repeat ekg PER MSG FROM MMM AFIB Atrial fibrillation Reason for Visit Longstanding persist ent atrial fibrillation Essential hypertension Hyperlipidemia Longstanding persistent atrial fibrillation Longstanding persistent atrial fibrillation Essential hypertension Hyperlipidemia Chief Complaint PERSISTENT A-FIB PERSISTENT A-FIB PERSISTENT A-FIB repeat ekg PER MSG FROM MMM AFIB Atrial fibrillation Atrial fibrillation 1 wk ekg s/p DCCV afib afib afib afib Reason for Visit Longstanding persist ent atrial fibrillation Longstanding persistent atrial fibrillation Essential hypertension Hyperlipidemia Longstanding persistent atrial fibrillation Chief Complaint 1 Y FU E ORDER eorder BP and ekg Geremias Reason for Visit Longstanding persist ent atrial fibrillation Essential hypertension Hyperlipidemia Chief Complaint Dyspnea, unspecified Dyspnea, unspecified Dyspnea, unspecified Dyspnea, unspecified Dyspnea, unspecified Chief Complaint Dyspnea, unspecified Dyspnea, unspecified Dyspnea, unspecified Dyspnea, unspecified Dyspnea, unspecified Abnormal PFT Reason for Visit Longstanding persist ent atrial fibrillation COPD (chronic obstructive pulmonary disease) Nicotine dependence, cigarettes, in remission Chief Complaint Dyspnea, unspecified Dyspnea, unspecified Dyspnea, unspecified Dyspnea, unspecified Dyspnea, unspecified Abnormal PFT SMOKER Reason for Visit Longstanding persist ent atrial fibrillation COPD (chronic obstructive pulmonary disease) Nicotine dependence, cigarettes, in remission Chief Complaint Dyspnea, unspecified Dyspnea, unspecified Dyspnea, unspecified Dyspnea, unspecified Dyspnea, unspecified Abnormal PFT SMOKER 6 wk FU Hypersomnia, unspecified Reason for Visit Longstanding persist ent atrial fibrillation COPD (chronic obstructive pulmonary disease) Nicotine dependence, cigarettes, in remission Daytime hypersomnia Lung nodule COPD (chronic obstructive pulmonary disease) New onset atrial fibrillation Chief Complaint Dyspnea, unspecified Dyspnea, unspecified Dyspnea, unspecified Dyspnea, unspecified Dyspnea, unspecified Abnormal PFT SMOKER 6 wk FU Hypersomnia, unspecified E ORDERS HYPERSOMNIA E ORDER Reason for Visit Longstanding persist ent atrial fibrillation COPD (chronic obstructive pulmonary disease) Nicotine dependence, cigarettes, in remission Daytime hypersomnia Lung nodule COPD (chronic obstructive pulmonary disease) New onset atrial fibrillation Chief Complaint Dyspnea, unspecified Dyspnea, unspecified Dyspnea, unspecified Dyspnea, unspecified Dyspnea, unspecified Abnormal PFT SMOKER 6 wk FU Hypersomnia, unspecified E ORDERS HYPERSOMNIA E ORDER R91.1 Solitary pulmonary nodule Reason for Visit Longstanding persist ent atrial fibrillation COPD (chronic obstructive pulmonary disease) Nicotine dependence, cigarettes, in remission Daytime hypersomnia Lung nodule COPD (chronic obstructive pulmonary disease) New onset atrial fibrillation Chief Complaint Dyspnea, unspecified Dyspnea, unspecified Dyspnea, unspecified Dyspnea, unspecified Dyspnea, unspecified Abnormal PFT SMOKER 6 wk FU Hypersomnia, unspecified E ORDERS HYPERSOMNIA E ORDER R91.1 Solitary pulmonary nodule Sleep apnea, unspecified ANEMIA, SCREENING COLONOSCOPY/EGD Reason for Visit Longstanding persist ent atrial fibrillation COPD (chronic obstructive pulmonary disease) Nicotine dependence, cigarettes, in remission Daytime hypersomnia Lung nodule COPD (chronic obstructive pulmonary disease) New onset atrial fibrillation Anemia Chief Complaint Dyspnea, unspecified Dyspnea, unspecified Abnormal PFT SMOKER 6 wk FU Hypersomnia, unspecified E ORDERS HYPERSOMNIA E ORDER R91.1 Solitary pulmonary nodule Sleep apnea, unspecified ANEMIA, SCREENING COLONOSCOPY/EGD SOB Reason for Visit Longstanding persist ent atrial fibrillation COPD (chronic obstructive pulmonary disease) Nicotine dependence, cigarettes, in remission Daytime hypersomnia Lung nodule COPD (chronic obstructive pulmonary disease) New onset atrial fibrillation Anemia Chief Complaint SMOKER 6 wk FU Hypersomnia, unspecified E ORDERS HYPERSOMNIA E ORDER R91.1 Solitary pulmonary nodule Sleep apnea, unspecified ANEMIA, SCREENING COLONOSCOPY/EGD SOB SLEEP APNEA GI BLEED Shortness of breath Reason for Visit Daytime hypersomnia Lung nodule COPD (chronic obstructive pulmonary disease) New onset atrial fibrillation Anemia Acute GI bleeding Leg edema 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 Longstanding persistent atrial fibrillation Shortness of breath Chief Complaint SMOKER 6 wk FU Hypersomnia, unspecified E ORDERS HYPERSOMNIA E ORDER R91.1 Solitary pulmonary nodule Sleep apnea, unspecified ANEMIA, SCREENING COLONOSCOPY/EGD SOB SLEEP APNEA GI BLEED GI BLEED Shortness of breath GI BLEED Reason for Visit Daytime hypersomnia Lung nodule COPD (chronic obstructive pulmonary disease) New onset atrial fibrillation Anemia Acute GI bleeding Anemia 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 Exertional dyspnea Leg edema Longstanding persistent atrial fibrillation Shortness of breath Chief Complaint SMOKER 6 wk FU Hypersomnia, unspecified E ORDERS HYPERSOMNIA E ORDER R91.1 Solitary pulmonary nodule Sleep apnea, unspecified ANEMIA, SCREENING COLONOSCOPY/EGD SOB SLEEP APNEA GI BLEED GI BLEED Shortness of breath GI BLEED GI BLEED GI BLEED GI BLEED Reason for Visit Daytime hypersomnia Lung nodule COPD (chronic obstructive pulmonary disease) New onset atrial fibrillation Anemia Acute GI bleeding Anemia custodial current use of anticoagulant Exertional dyspnea Leg edema Longstanding persistent atrial fibrillation Shortness of breath Chief Complaint Admit Date INT LABS August 16, 2024 8:32am 6 MO - LABS August 30, 2024 1:01 pm 3 MO - LABS August 30, 2024 1:15 pm LUNG NODULE October 23, 2024 6:5 0pm 6 M FU December 13, 2024 2:06 pm Reason for Visit Admit Date Iron deficiency anemia due to chronic bl ood loss August 30, 2024 1:01pm Central sleep apnea December 13, 2024 2:06 pm Lung nodule December 13, 2024 2:06 pm COPD (chronic obstructive pulmonary dise ase) December 13, 2024 2:06pm Additional Source Comments (unrecognized sect ion and content) No Status Records FoundNo Status Records FoundNo Status Records FoundNo Status Records Found INFORMATION SOURCE (unrecogn ized section and content) DATE CREATED AUTHOR 02/26/2019 [facility] DATE CREATED AUTHOR AUTHOR'S ORGANIZ ATION 03/31/2020 [facility] DATE CREATED AUTHOR AUTHOR'S ORGANIZ ATION 09/29/2024 [facility] DATE CREATED AUTHOR AUTHOR'S ORGANIZ ATION 12/15/2024 [facility] Goals (unrecognized section and content) Goals may be documented in a n alternate sectionGoals may be documented in an alternate sectionGoals may be documented in an alternate sectionGoals may be documented in an alternate sectionGoals may be documented in an alternate sectionGoals may be documented in an alternate sectionGoals may be documented in an alternate sectionGoals may be documented in an alternate sectionGoals may be documented in an alternate sectionGoals may be documented in an alternate sectionGoals may be documented in an alternate sectionGoals may be documented in an alternate sectionGoals may be documented in an alternate sectionGoals may be documented in an alternate sectionGoals may be documented in an alternate sectionGoals may be documented in an alternate sectionGoals may be documented in an alternate section Care Teams (unrecognized sec tion and content) Team Status: Active Member Role Status Dates Dr. Reema Myers MD Family Provider Active Dr. Reema Myers MD Primary Care Provider Active Team Status: Inactive Member Role Status Dates Dr. Reema Myers MD Primary Care Provider, Referrin g Provider Active Dr. Matthew Dodd MD Attending Provider Active Team Status: Inactive Member Role Status Dates Dr. Reema Myers MD Primary Care Provider, Referrin g Provider Active Rick Mccormack PA, PA Attending Provider Active Team Status: Inactive Member Role Status Dates Dr. Reema Myers MD Primary Care Provider Active Dr. Matthew Dodd MD Attending Provider, Referring Pro vider Active Team Status: Active Member Role Status Dates Dr. Reema Myers MD Primary Care Prov ider, Referring Provider, Other Provider Active Dr. Ramesh Whittington DO Attending Provider Active Team Status: Active Member Role Status Dates Dr. Reema Myers MD Primary Care Prov ider, Referring Provider, Other Provider Active Dr. Chemo Aldrich MD Attending Provider Active Team Status: Active Member Role Status Dates Dr. Reema Myers MD Primary Care Prov ider, Attending Provider, Referring Provider Active Team Status: Inactive Member Role Status Dates Dr. Reema Myers MD Primary Care Prov ider, Attending Provider, Referring Provider Active Team Status: Inactive Member Role Status Dates Dr. Reema Myers MD Primary Care Provider, Referrin g Provider Active Dr. Ramesh Whittington DO Attending Provider Active Team Status: Inactive Member Role Status Dates Dr. Reema Myers MD Primary Care Provider Active Dr. Ramesh Whittington DO Attending Provider, Referring Pro vider Active Team Status: Inactive Member Role Status Dates Dr. Reema Myers MD Primary Care Provider, Referrin g Provider Active Lisa Madrigal NEEDLEWORKER, NEEDLEWORKER-C Attending Provider Active Team Status: Inactive Member Role Status Dates Dr. Reema Myers MD Primary Care Provider Active Lisa Madrigal NEEDLEWORKER, NEEDLEWORKER-C Attending Provider, Referrin g Provider Active Team Status: Active Member Role Status Dates Dr. Reema Myers MD Primary Care Provider Active Lisa Madrigal NEEDLEWORKER, NEEDLEWORKER-C Attending Provider, Referrin g Provider Active Team Status: Inactive Member Role Status Dates Dr. Reema Myers MD Primary Care Provider Active Rick Mccormack PA, PA Attending Provider, Referr ing Provider Active Team Status: Active Member Role Status Dates Dr. Reema Myers MD Primary Care Provider Active Rick Mccormack PA, PA Attending Provider, Referr ing Provider Active Team Status: Inactive Member Role Status Dates Dr. Reema Myers MD Primary Care Provider, Referrin g Provider Active Dr. Lilly Navarrete MD Attending Provider Active Team Status: Active Member Role Status Dates Dr. Reema Myers MD Primary Care Provider, Referrin g Provider Active Dr. Lilly Navarrete MD Attending Provider, Other Pro vider Active Team Status: Active Member Role Status Dates Dr. Reema Myers MD Primary Care Provider Active Dr. Matthew Dodd MD Attending Provider Active Team Status: Active Member Role Status Dates Dr. Reema Myers MD Primary Care Provider Active Dr. Fitz Denney DO Emergency Provider Active Marcela TOWNSEND PA-C Attending Provider Active Team Status: Active Member Role Status Dates Dr. Reema Myers MD Primary Care Provider Active Dr. Fitz Denney , Emergency Provider Active Dr. Roberto Hussein MD Admit Provider, Attending Provider Active Dr. Freddie Ortiz , DO Other Provider Active Team Status: Active Member Role Status Dates Dr. Reema Myers MD Primary Care Provider Active Dr. Fitz Denney , DO Emergency Provider Active Dr. Roberto Husseni MD Admit Provider, Other Prov ider Active Dr. Freddie Ortiz , DO Attending Provider, Other Provider Active Team Status: Active Member Role Status Dates Dr. Reema Myers MD Primary Care Provider Active Dr. Fitz Denney DO Emergency Provider Active Dr. Roberto Hussein MD Admit Provider, Other Prov ider Active Dr. Freddie Ortiz , DO Other Provider Active Dr. Amber Fang , DO Other Provider Active Dr. Lilly Navarrete MD Attending Provider Active Team Status: Active Member Role Status Dates Dr. Reema Myers MD Primary Care Provider Active Dr. Fitz Denney , DO Emergency Provider Active Dr. Roberto Hussein MD Admit Provider, Attending Provider Active Dr. Freddie Ortiz , DO Other Provider Active Dr. Amber Fang , DO Other Provider Active Team Status: Active Member Role Status Dates Dr. Reema Myers MD Primary Care Provider Active Dr. Fitz Denney , DO Emergency Provider Active Dr. Roberto Hussein MD Admit Provider, Other Prov ider Active Dr. Freddie Ortiz , DO Other Provider Active Dr. Amber Fang , DO Attending Provider, Other Provide r Active Team Status: Active Member Role Status Dates Dr. Reema Myers MD Primary Care Provider Active Dr. Fitz Denney , DO Emergency Provider Active Dr. Roberto Hussein MD Admit Provider, Other Prov ider Active Dr. Freddie Ortiz , DO Other Provider Active Dr. Amber Fang , DO Other Provider Active Dr. Shawn Moore MD Attending Provider Active Team Status: Inactive Member Role Status Dates Dr. Reema Myers MD Primary Care Provider Active Dr. Fitz Denney , DO Emergency Provider Active Dr. Roberto Hussein MD Admit Provider, Attending Provider Active Dr. Freddie Ortiz , DO Other Provider Active Dr. Amber Fang , DO Other Provider Active Team Status: Inactive Member Role Status Dates Dr. Reema Myers MD Primary Care Provider Active Start: August 16, 2024 End: August 16, 2024 KRISTIAN Weinstein Attending Provider Active St art: August 16, 2024 End: August 16, 2024 KRISTIAN Weinstein Referring Provider Active St art: August 16, 2024 End: August 16, 2024 Team Status: Inactive Member Role Status Dates Dr. Reema Myers MD Primary Care Provider Active Start: August 30, 2024 End: August 30, 2024 Dr. Reema Myers MD Referring Provider Active Start: August 30, 2024 End: August 30, 2024 Dr. Tamie Coleman MD Attending Provider Active Start: August 30, 2024 End: August 30, 2024 Team Status: Active Member Role Status Dates Dr. Reema Myers MD Primary Care Provider Active Start: August 30, 2024 Dr. Tamie Coleman MD Attending Provider Active Start: August 30, 2024 Dr. Tamie Coleman MD Referring Provider Active Start: August 30, 2024 Team Status: Inactive Member Role Status Dates Dr. Reema Myers MD Primary Care Provider Active Start: October 23, 2024 End: October 23, 2024 Lisa Madrigal NP, NEEDLEWORKER-C Other Provider Active Start: October 23, 2024 End: October 23, 2024 SHIRA Yates Attending Provider Active Start: October 23, 2024 End: October 23, 2024 SHIRA Yates Referring Provider Active Start: October 23, 2024 End: October 23, 2024 Team Status: Inactive Member Role Status Dates Dr. Reema Myers MD Referring Provider Active Start: December 13, 2024 End: December 13, 2024 SHIRA Bonilla Attending Provider Active Start: December 13, 2024 End: December 13, 2024 FOR RECORDS PERTAINING TO PATIENTS WHO ARE [...] BE BASED ON THE PRIMARY CLINICAL RECORDS. [facility] [employer] provides no warranty or guarantee of the accuracy or completeness of information in this document.
--- NOTE | 2024-12-26 06:41 | STRESSREP ---
Stress Test Report Pharmacologic myocardial perfusion stress test. 79-year-old man with a history of A-fib Resting EKG demonstrates atrial fibrillation with a rate of 76 bpm. Resting blood pressure is 124/70 mmHg. 0.4 mg of regadenoson was infused per usual protocol followed by rapid intravenous saline flush injection. Continuous EKG monitoring was performed. The maximum heart rate was 81 bpm which was 58% of max impacted heart rate the maximum workload was 1 metabolic equivalent. At rest there were no ST or T wave changes noted to suggest ischemia and at peak infusion nonspecific ST changes were noted which did not meet the criteria for ischemia. No clinical angina is noted. The final blood pressure was 124/70 mmHg. Myocardial perfusion protocol. 14.7 mCi of technetium 99m sestamibi was injected at rest. 0.4 mg of regadenoson was infused per usual protocol. At peak infusion 44.4 mCi of technetium 99m sestamibi was injected stress images were obtained stress and rest images were reconstructed and compared in the short axis vertical long and horizontal long axis. Gated images were also obtained. Perfusion SPECT analysis: Review of the stress images demonstrate normal uptake of tracer noted in all areas of the myocardium. The resting images similar demonstrated normal uptake of tracer noted in all areas of the myocardium. No areas of reversibility are noted to suggest ischemia and no previous infarct is noted. Gated SPECT analysis: The gated ejection fraction is 62%. Conclusion: Normal pharmacologic myocardial perfusion stress test. Preserved ejection fraction.
== END | disposition home or self-care (01) ==
LOC: CVS 06:36
PROVIDERS: PCP Family Medicine; Referring Provider Physician Assistant Medical; Visit Provider Physician Assistant Medical
DX: R06.02 Shortness of breath (principal); R53.83 Other fatigue; I25.10 Atherosclerotic heart disease of native coronary artery without angina pectoris
CPT/HCPCS: 78452; 93017; A9500; A4216; J2785

== ENCOUNTER → 2025-01-04 | Outpatient (CLI) | payer MEDICARE, OTHER, SELFPAY | END | disposition home or self-care (01) | LOC: SL 13:36 | PROVIDERS: PCP Family Medicine; Referring Provider Nurse Practitioner Family; Visit Provider Nurse Practitioner Family | DX: G47.31 Primary central sleep apnea (principal) | CPT/HCPCS: 98960; G0463 ==

== ENCOUNTER 2025-01-17 16:04 | Inpatient (IN) | payer MEDICARE, OTHER, SELFPAY ==
[2025-01-17] VITALS (9 sets, daily range): BP systolic 92–127; BP diastolic 63–90; PULSE 66–124; RESP 16–21; TEMP 36.1–36.6; O2SAT 96–100; BMI 30.8; BMI 31.4
--- NOTE | 2025-01-17 16:23 | EX.ED.DYSGE1 ---
HPI History of Present Illness Chief Complaint: Abn Labs Narrative Narrative: 79-year-old male past medical history of chronic anemia, atrial fibrillation on Eliquis, had workup for GI bleeding which was negative last year and has received blood transfusions in the past was sent in by his primary care provider for hemoglobin of 7 today. He states that over the last 3 to 4 days he has felt very weak, tired, and short of breath. He denies any chest pain, and he always has dark stool because he is on iron. He states he has had 2 colonoscopies, and even swallowed a camera, and they have not found any source of GI bleeding but he received blood transfusion last year for the same problem. Since he was feeling weak and tired again, he called his primary care provider to have blood work performed. He had it done this morning and he was called and told that he had a hemoglobin of 7 and that he needed to come to the emergency department. He denies any exacerbating or alleviating factors. [facility] Medical History Thyrotoxicosis Iron deficiency anemia due to chronic blood loss Wears hearing aid Wears glasses Alcohol use Burning pain Arthritis Self-catheterizes urinary bladder Prostate disease Anemia High cholesterol Restless legs Back pain Syncope Difficulty swallowing COPD (chronic obstructive pulmonary disease) Shortness of breath on exertion History of pain when walking History of edema History of echocardiogram History of stress test Cardiology follow-up encounter History of cardioversion Obesity New onset atrial fibrillation (03/14/21) BPH (benign prostatic hyperplasia) Tobacco dependence Essential hypertension Hyperlipidemia Home Medications ?Medication ?Instructions ?Recorded ?Last Taken ?Type atorvastatin 40 mg tablet 40 mg PO QHS 03/18/21 01/16/25 History docusate sodium 100 mg capsule 100 mg PO BID 07/01/23 01/17/25 History metoprolol tartrate 25 mg tablet 25 mg PO BID 01/11/24 01/17/25 History apixaban 2.5 mg tablet (Eliquis) 2.5 mg PO BID 03/06/24 01/17/25 History sitagliptin phosphate 50 mg tablet 50 mg PO DAILY Control sugar level 12/13/24 01/16/25 History finasteride 5 mg tablet 5 mg PO DAILY 01/17/25 01/16/25 History Allergy/AdvReac Type Severity Reaction Status Date / Time No Known Allergies Allergy Verified 12/13/24 14:15 Family History Mother Heart disease Hypertension Thyroid disorder Father Heart disease Brother Hypertension Surgical History Hx of right cataract extraction Hx of left cataract extraction History of transurethral resection of prostate History of appendectomy Social History household members: spouse housing: house Smoking Status: Former smoker quit date: 02/26/21 alcohol intake: current alcohol intake frequency: a few times a month ROS ROS ED ROS Narrative Review of systems positive for chronic black stool. Positive for generalized weakness and fatigue, with shortness of breath. No fevers or chills, no nausea or vomiting, no hematemesis, or cough. No exacerbating or alleviating factors. EXAM Physical Exam Narrative Exam Narrative: Afebrile. Vital signs noted. Nontoxic-appearing. Cardiovascular examination reveals mild tachycardia. Lungs are clear to auscultation bilaterally. Abdomen is soft and nontender without guarding or rebound. Neurological examination nonfocal, nonlateralizing. Mild pallor of skin especially on palms. Mild subconjunctival pallor. No central cyanosis. Const Vital Signs: 01/17/25 16:06 01/17/25 18:08 01/17/25 18:34 Temperature 97.7 F L Temperature Source Oral Pulse Rate 124 H 79 Respiratory Rate 16 21 H Respiratory Effort Normal Respiratory Pattern Normal Blood Pressure 92/63 113/76 Blood Pressure Mean 72 88 Pulse Ox 96 100 Oxygen Delivery Method Room Air Room Air MDM MDM MDM Narrative Medical decision making narrative: Differential diagnosis includes but not limited to GI bleeding versus anemia of chronic disease requiring transfusions. I will repeat his CBC without differential, and perform type and screen as well as type and crossmatch and transfuse him 2 units as he has history of coronary artery disease. He will be consented for transfusion of blood products. I reviewed his laboratory work from today, and his hemoglobin was 7.2. Given his age and that he is symptomatic and on Eliquis, I repeated his CBC and his hemoglobin dropped to 6.2 with hematocrit 20.5 and platelet count low at 128. Given his significant drop in hemoglobin from today, and that he has a soft blood pressure, he is not currently tachycardic, but I did perform a rectal examination that was chaperoned. It was sent for Hemoccult status, and it is positive. Hence, I suspect that he is having GI bleeding again. Patient was discussed with Dr. Wen Ortega for admission to the PCU for GI bleeding. Once again, he is on a blood thinner for atrial fibrillation. Disposition is admitted in stable condition. History & Record Review Discussion w/independent historian: Patient and Family () Lab Data Attestation: I reviewed the patient's lab results. Labs: Laboratory Results - last 24 hr 01/17/25 01/17/25 17:35 17:43 WBC 5.4 RBC 1.89 L Hgb 6.2 L Hct 20.5 L MCV 108.5 H MCH 32.8 H MCHC 30.2 L RDW Std Deviation 60.0 H RDW Coeff of Christina 15.4 H Plt Count 128 L MPV 11.5 Crossmatch See Detail Management Discussion w/another healthcare provider: Hospitalist (Dr. Wen Ortega) Discharge Plan Dx/Rx/DC Orders Clinical Impression: Anemia requiring transfusions, SOB (shortness of breath), GI bleeding, Generalized weakness Disposition Disposition: Acute Care Hospital [facility]
[2025-01-17 18:01] LABS: Hematocrit 20.5 % (40-54); Hemoglobin 6.2 g/dL (13.0-16.5); Mean Corp Hgb Conc 30.2 g/dL (32-36); Mean Corpuscular Volume 108.5 fL (80-94); Mean Platelet Vol. 11.5 fl (6.2-12.0); Platelet Count 128 K/mm3 (150-450); RBC Distribution Width CV 15.4 % (11.6-14.6); RBC Distribution Width SD 60.0 fl (35.1-43.9); Red Blood Count 1.89 M/mm3 (4.6-6.2); White Blood Count 5.4 K/mm3 (4.4-11.0)
--- NOTE | 2025-01-17 18:42 | PCM.HP.STD ---
HPI - General General Date of Admission: 01/17/25 Date of Service: 01/17/25 Chief Complaint: Shortness of breath, weak, lightheaded HPI Narrative ANJUM GILBERT, is a 80-year-old male history of iron deficiency anemia, self catheterizes urinary bladder, A-fib, BPH presented to [facility] ED 01/17/2025 for low hemoglobin. Last year he had a workup for GI bleeding and transfusions but workup was negative even after 2 colonoscopies and capsule endoscopy on he stabilized. Now however he has been weak, short of breath, and dizzy over the past 4 to 5 days. ECP checked his hemoglobin was 7.2. In the ED it was noted to be 6.2 and fecal occult was positive. Temperature 97.7, initially heart rate 124 and blood pressure 92/63 however repeat 2 hours later with heart rate of 79 and blood pressure 113/76. Respiratory rate 21 pulse ox 100% on room air. White blood cell count within normal limits, platelet count 128 and BMP fairly benign aside from a elevated BUN of 26. Hospitalist contacted for admission. Patient evaluated at bedside. Patient notes history as above with 4 to 5 days of shortness of breath on exertion, lightheadedness and generalized weakness. He has dark stool but notes he takes iron so he is unsure if there are any changes but denies any bright red blood. No abdominal pain, no fever. Chronically self caths without any changes. Has some ankle swelling has been present over the past few months but no other new acute complaints. [facility] Medical History Thyrotoxicosis Iron deficiency anemia due to chronic blood loss Wears hearing aid Wears glasses Alcohol use Burning pain Arthritis Self-catheterizes urinary bladder Prostate disease Anemia High cholesterol Restless legs Back pain Syncope Difficulty swallowing COPD (chronic obstructive pulmonary disease) Shortness of breath on exertion History of pain when walking History of edema History of echocardiogram History of stress test Cardiology follow-up encounter History of cardioversion Obesity New onset atrial fibrillation (03/14/21) BPH (benign prostatic hyperplasia) Tobacco dependence Essential hypertension Hyperlipidemia Home Medications ?Medication ?Instructions ?Recorded ?Last Taken ?Type atorvastatin 40 mg tablet 40 mg PO QHS 03/18/21 01/16/25 History docusate sodium 100 mg capsule 100 mg PO BID 07/01/23 01/17/25 History metoprolol tartrate 25 mg tablet 25 mg PO BID 01/11/24 01/17/25 History apixaban 2.5 mg tablet (Eliquis) 2.5 mg PO BID 03/06/24 01/17/25 History sitagliptin phosphate 50 mg tablet 50 mg PO DAILY Control sugar level 12/13/24 01/16/25 History finasteride 5 mg tablet 5 mg PO DAILY 01/17/25 01/16/25 History Allergy/AdvReac Type Severity Reaction Status Date / Time No Known Allergies Allergy Verified 12/13/24 14:15 Family History Mother Heart disease Hypertension Thyroid disorder Father Heart disease Brother Hypertension Surgical History Hx of right cataract extraction Hx of left cataract extraction History of transurethral resection of prostate History of appendectomy Social History household members: spouse housing: house Smoking Status: Former smoker quit date: 02/26/21 alcohol intake: current alcohol intake frequency: a few times a month ROS ROS Narrative General: Denies fever/chills HENT: Denies headache, denies stuffy nose, denies sore throat EYES: Denies changes in vision Resp: Denies cough, does have shortness of breath on exertion Cardiac: Denies chest pain GI: Denies abdominal pain, dark stool but chronically takes iron, denies nausea/vomiting : Self catheterizes Extremity: Some ankle swelling over the past couple months MSK: Generalized weakness Neuro: Denies any numbness/tingling Heme: Denies any bleeding or bruising Skin: Denies rashes Psychiatric: No complaints voiced Vital Signs Vital Signs Vital Signs: 01/17/25 16:06 01/17/25 18:08 01/17/25 18:34 Temperature 97.7 F L Temperature Source Oral Pulse Rate 124 H 79 Respiratory Rate 16 21 H Respiratory Effort Normal Respiratory Pattern Normal Blood Pressure 92/63 113/76 Blood Pressure Mean 72 88 Pulse Ox 96 100 Oxygen Delivery Method Room Air Room Air Weight Weight: 106.05 kg Body Mass Index (BMI) 30.8 Physical Exam Narrative General: Alert, oriented, no apparent distress HEENT: Atraumatic, normocephalic Eyes: Anicteric, normal conjunctiva, extraocular movements grossly intact Neck: Supple Respiratory: Scattered wheezes, normal respiratory effort Cardiovascular: Now regular rate GI: Soft, nontender, nondistended Extremities: 1+ lower extremity edema Musculoskeletal: Moving all extremities Neuro: No overt focal neurological deficits Skin: No rashes appreciated Psych: Cooperative Results Lab / Micro Data 01/17/25 17:43 01/17/25 18:09 Labs: Laboratory Results - last 24 hr 01/17/25 17:43: WBC 5.4, RBC 1.89 L, Hgb 6.2 L, Hct 20.5 L, MCV 108.5 H, MCH 32.8 H, MCHC 30.2 L, RDW Std Deviation 60.0 H, RDW Coeff of Christina 15.4 H, Plt Count 128 L, MPV 11.5 Assessment & Plan Assessment/Plan (1) Symptomatic anemia: PLAN: Plan # Symptomatic anemia with concern for GI bleed - Patient with dark stool though chronically is due to iron however hemoglobin of 6.2 in the ED and elevated BUN concerning more for an upper GI pathology - IV PPI - Trend H&H - Will consult GI - Patient to be transfused, already typed and crossed in the ED - Hold home anticoagulation -Patient be admitted to PCU as he was initially somewhat tachycardic with low blood pressure -Patient symptoms have been over 4 to 5 days, presently vitally stable, do not think patient needs acutely reversed but will monitor hemoglobin after transfusion, if necessary can consider reversal #Paroxysmal Atrial Fibrillation -Rate control: Patient on metoprolol -Anticoagulation: Holding Eliquis #Chronic BPH with obstruction -Continue home medications - Patient self catheterizes #Type 2 diabetes mellitus -Glucose checks and sliding scale insulin #DVT ppx: SCDs Wen Ortega MD Time spent in the patient's overall evaluation, decision-making process, review of diagnostic data, adjustment of management, discussion with other providers, nursing and ancillary staff involved in patient's care documentation, 57 Minutes Charges/Coding Visit Charges Inpatient E&M: 41237 Init Hosp L2
[2025-01-17 19:07] LABS: Anion Gap 10 (5-15); BUN 26 mg/dL (4-19); BUN/Creat Ratio 23.5 RATIO (10-20); Calcium,Total 8.3 mg/dL (7.6-11.0); Carbon Dioxide 22.8 mmol/L (21.0-32.0); Chloride 107 mmol/L (98-108); Estimated Creatinine Clearance 67.93 ml/min (50-250); Glucose 107 mg/dL (70-99); Potassium 4.4 mmol/L (3.3-5.1)
--- OUTSIDE RECORDS SUMMARY | 2025-01-17 20:29 | XMS RPT_ITS | CCD ---
Author Organization [facility] CliniSywy Care Team Providers Care Psychologist Engineering Name Role Phone Olga Spears Unavailable Erin Mccracken Unavailable Unavailable Anika Umana Unavailable Unavailable Unavailable Unavailable Dr. Reema Myers Primary Care Provider [phone] APPLICATION SECURITY ARCHITECT, APPLICATION SECURITY ARCHITECT-C Erin Attending Provider Dr. Reema Myers Referring Provider [phone] Patel Luna Attending Provider [phone] Skyler APPLICATION SECURITY ARCHITECT, APPLICATION SECURITY ARCHITECT-C Erin Referring Provider KRISTIAN Buckley Attending Provider Dr. Matthew Dodd Attending Provider [phone] Dr. Matthew Dodd Referring Provider [phone] Matthew Dodd Other Provider KRISTIAN Buckley Other Provider [phone] Dr. Ramesh Whittington Attending Provider Dr. Reema Myers Primary Care Provider [phone] Dr. Reema Myers Referring Provider [phone] KRISTIAN Buckley Attending Provider Dr. Matthew Dodd Attending Provider [phone] Matthew Dodd Referring Provider [phone] Matthew Dodd Other Provider KRISTIAN Buckley Other Provider [phone] Dr. Ramesh Whittington Attending Provider Dr. Reema Myers Primary Care Provider [phone] Dr. Reema Myers Referring Provider [place], [place] Rick Peterson Attending Provider Dr. Chemo Aldrich Attending Provider Ruth Bravo Attending Provider Unavailable Skyler NUR, APPLICATION SECURITY ARCHITECT-C Erin Attending Provider Dr. Reema Myers Primary Care Provider [phone] Reema Myers Referring Provider Dr. Matthew Dodd Attending Provider [place], [place] Rick Peterson Attending Provider Dr. Reema Myers Primary Care Provider [phone] Reema Myers Referring Provider Dr. Reema Myers Other Provider Dr. Ramesh Whittington Attending Provider Dr. Chemo Aldrich Attending Provider Rohan APPLICATION SECURITY ARCHITECT, APPLICATION SECURITY ARCHITECT-C Lisa Attending Provider Dr. Reema Myers Primary Care Provider [phone] Dr. Reema Myers Referring Provider Dr. Reema Myers Other Provider Dr. Ramesh Whittington Attending Provider Dr. Chemo Aldrich Attending Provider Rohan APPLICATION SECURITY ARCHITECT, APPLICATION SECURITY ARCHITECT-C Lisa Attending Provider [phone] Dr. Lilly Navarrete Attending Provider Dr. Lilly Navarrete Other Provider Dr. Reema Myers Primary Care Provider [phone] Reema Myers Referring Provider Dr. Reema yMers Other Provider Dr. Ramesh Whittington Attending Provider Dr. Matthew Dodd Attending Provider Dr. Reema Myers Primary Care Provider Dr. Reema Myers Referring Provider Dr. Fitz Denney Emergency Provider Maikol TOWNSEND PA-C Marcela Attending Provider Dr. Fitz Denney Emergency Provider [phone] Roberto Husseinit Provider Dr. Roberto Hussein Other Provider Dr. [...] Other Provider Nate NUR-CJacqueline Attending Provider Nate APPLICATION SECURITY ARCHITECT-CJacqueline Referring Provider Lázaro NUR-CPayal Attending Provider Dr. Reema Myers MD Primary Care Provider Rick Buckley Attending Provider [phone] Rick Buckley Referring Provider [phone] Rick Buckley Other Provider Ju VELASQUEZ, Dr. Castro Attending Provider [phone] Louis VELASQUEZ, Dr. Benavidez Primary Care Provider Louis VELASQUEZ, Dr. Benavidez Referring Provider Ju VELASQUEZ, Dr. Castro Attending Provider [phone] Rick Buckley Referring Provider [phone] Lázaro NUR-CPayal Referring Provider Miedel, Reema Referring Unavailable Buck Larsen Attending Unavailable Miedel, Reema Primary Care Unavailable Miedel, Reema Referring Unavailable Miedel, Reema Primary Care Unavailable Lisa Madrigal Attending Unavailable Miedel, Reema Referring Unavailable Miedel, Reema Primary Care Unavailable Erin Holland NP Attending Unavailable Miedel, Reema Referring Unavailable Chet, Tariq Attending Unavailable Miedel, Reema Primary Care Unavailable Miedel, Reema Primary Care Unavailable Isckarus, Mansour Referring Unavailable Isckarus, Mansour Attending Unavailable Miedel, Reema Referring Unavailable Miedel, Reema Attending Unavailable Miedel, Reema Primary Care Unavailable Miedel, Reema Primary Care Unavailable Rick Buckley Referring Unavail able Rick Buckley Attending Unavail able Chet, Tariq Attending Unavailable Miedel, Reema Primary Care Unavailable , Tariq Referring Unavailable Miedel, Reema Primary Care Unavailable Payal Sesay Referring Unavailable Payal Sesay Attending Unavailable Miedel, Reema Referring Unavailable Miedel, Reema Primary Care Unavailable Lisa Madrigal Attending Unavailable Miedel, Reema Referring Unavailable Chet, Tariq Attending Unavailable Miedel, Reema Primary Care Unavailable Miedel, Reema Primary Care Unavailable Matthew Dodd Attending Unavailable Rick Buckley Referring Unavail able Miedel, Reema Primary Care Unavailable Matthew Dodd Attending Unavailable Rick Buckley Referring Unavail able Rick Buckley Consulting Unavail able Miedel, Reema Referring Unavailable Kaushal Jarvis Attending Unavailable Miedel, Reema Primary Care Unavailable Miedel, Reema Referring Unavailable Miedel, Reema Primary Care Unavailable Tamie Coleamn Attending Unavailable Miedel, Reema Primary Care Unavailable Tariq Rosenberg Attending Unavailable Miedel, Reema Referring Unavailable Miedel, Reema Referring Unavailable Payal Sesay Attending Unavailable Miedel, Reema Attending Unavailable Miedel, Reema Primary Care Unavailable Miedel, Reema Referring Unavailable Miedel, Reema Attending Unavailable Miedel, Reema Primary Care Unavailable Miedel, Reema Referring Unavailable Magen Rosenbergi Attending Unavailable Miedel, Reema Primary Care Unavailable Tariq Rosenberg Referring Unavailable Miedel, Reema Primary Care Unavailable Luciaiter Buck Referring Unavailable LuciaiterTylorBuck Attending Unavailable Miedel, Reema Attending Unavailable Miedel, Reema Referring Unavailable Miedel, Reema Primary Care Unavailable Miedel, Reema Primary Care Unavailable Jacqueline Sullivan Referring Unavailable Jacqueline Sullivan Attending Unavailable Lisa Madrigal Unavailable Miedel, Reema Primary Care Unavailable Miedel, Reema Referring Unavailable Tamie Coleman Attending Unavailable Medications Current Medications Medication Drug Class(es) Dates Sig (Normalized) Sig (Original) albuterol 0.833 mg/ml / ipratropium bromide 0.167 mg/ml inhalation solution (6 sources) Anticholinergic, beta2-Adrenergic Agonist Start: 12-13-2024 Ipratropium-Albute rol (Combivent Respimat) 20-100 mcg/actuation mist Active INHALATION December 13, 2024 12:00am For shortness of breath Start: 12-13-2024 Ipratropium-Al buterol 0.5 mg-3 mg(2.5 mg base)/3 mL solution for nebulization Active mL INHALATION December 13, 2024 12:00am Lung issues apixaban 2.5 mg oral tablet (20 sources) Factor Xa Inhibitor Start: 03-06-2024 take 1 tablet by mouth twice daily Apixaban (Eliquis) 2.5 mg tablet Active 2.5 mg PO TWICE A DAY March 06, 2024 12:00am Start: 02-10-2024 End: 03-06-2024 take 1 tablet by mouth twice daily Apixaban (Eliquis) 5 mg tablet Discontinued 5 mg PO TWICE A DAY 60 3 February 10, 2024 3:43pm March 06, 2024 4:22pm Start: 03-18-2021 End: 02-02-2024 take 1 tablet by mouth twice daily Apixaban (Eliquis) 5 mg tablet Discontinued 5 mg PO TWICE A DAY 60 3 March 18, 2021 12:00am February 02, 2024 [...] Discontinued docusate sodium 100 mg oral capsule (16 sources) Start: 07-01-2023 take 1 capsule by mouth twice daily Docusate Sodium 100 mg capsule Active 100 mg PO TWICE A DAY July 01, 2023 1:00am ferrous sulfate (6 sources) Start: 12-13-2023 take 1 tablet by [...] 12, 2023 1:03pm January 11, 2024 9:51am this is a dose increase Decrease to 25mg until follow up with cardiology Start: 02-02-2023 End: 11-06-2023 take 1 tablet by mouth twice daily Metoprolol Tartrate 50 mg tablet Discontinued 50 mg PO TWICE A DAY February 02, 2023 12:00am November 06, 2023 4:03pm this is a dose increase Start: 03-18-2021 End: 03-18-2021 take 1 tablet [...] DO, DO, Kathleen Start : 18-Feb-2015 Active Dry Prong-3 Fatty Acids-Fish Oil (20 sources) Start: 05-31-2019 Dry Prong-3 Fatty Acids-Fish Oil Active 3 EACH PO TWICE A DAY May 31, 2019 11:06am Start: 05-31-2019 Dry Prong-3 Fatty Acids-Fish Oil Active 3 EACH PO TWICE A DAY May 31, 2019 12:00am Start: 05-31-2019 Dry Prong-3 Fatty Acids-Fish Oil Active 3 EACH PO TWICE A DAY May 31, 2019 1:00am SITagliptin 50 mg oral tablet (3 sources) Dipeptidyl Peptidase 4 Inhibitor Start: 12-13-2024 take 1 tablet by mouth once daily Sitagliptin Phosphate 50 mg tablet Active 50 mg PO DAILY December 13, 2024 12:00am Control sugar level Completed/Discontinued Medications Medication Drug Class(es) Dates Sig (Normalized) Sig (Original) acetaminophen 325 mg / HYDROcodone bitartrate 5 mg oral tablet (20 sources) Opioid Agonist Start: 06-07-2019 End: 06-14-2019 Hydrocodone-Acetami nophen 1 EACH tablet Discontinued 1 NMA PO EVERY 4 HOURS NEEDED as needed for Pain Score 14 5 0 June 07, 2019 June 11, 2019 1:00am June 14, 2019 1:12am Benign neoplasm of prostate Start: 06-07-2019 End: 06-14-2019 Hydrocodone-Acetaminophen Di scontinued 1 EACH PO EVERY 4 HOURS NEEDED 14 5 June 07, 2019 June 14, 2019 1:12am [...] mg tablet Discontinued 200 mg PO DAILY 90 3 February 02, 2023 4:54pm November 12, 2023 1:17pm amitriptyline hydrochloride 50 mg oral tablet (1 source) Tricyclic Antidepressant End: 10-30-19 take 1 tablet by mouth once daily at bedtime AMITRIPTYLINE HCL, 50MG (Oral Tablet) 1 QHS / HS for 0 days Refills: 0 Ordered: 31-Oct-2006 Mast Bell HINES End : 29-Oct-2006 Discontinued amoxicillin 875 mg / clavulanate 125 mg oral tablet (20 sources) Penicillin-class Antibacterial Start: 02-05-20 End: 07-01-19 Amoxicillin-Pot Clavulanate 875-125 mg tablet Discontinued 1 [...] 31, 2019 1:00am June 07, 2019 2:07pm [facility] azithromycin 250 mg oral tablet (3 sources) Macrolide Antimicrobial Start: 02-02-2024 End: 02-10-2024 take 2-5 tablets by mouth once daily Azithromycin 250 mg tablet Discontinued 0 PO .COMPLEX 6 0 February 02, 2024 12:00am February 10, 2024 2:36pm take 500 mg today (day 1), then 250 mg for 4 days (days 2-5) PO Blood-Glucose Sensor (Freestyle Kel 3 Plus Sensor) device (3 sources) Start: 07-10-2024 End: 07-10-2024 Blood-Glucose Sensor (Freestyle Kel 3 Plus Sensor) device Discontinued 0 .Route 2 July 10, 2024 1:00am July 10, 2024 4:50pm As directed Start: 07-10-2024 End: 07-10-2024 Blood-Glucose Sensor (Freest yle Kel 3 Plus Sensor) device Discontinued 0 .Route 2 July 10, 2024 1:00am July 10, 2024 4:50pm As directed ciprofloxacin 500 mg oral tablet (20 sources) Quinolone Antimicrobial Start: 06-07-2019 End: 03-18-2021 take 1 tablet by mouth twice daily Ciprofloxacin Hcl 500 MG tablet Discontinued 500 mg PO TWICE A DAY 14 0 June 07, 2019 1:00am March 18, 2021 [...] 23-Sep-2007 Inactive furosemide 40 mg oral tablet (13 sources) Loop Diuretic Start: 09-09-2023 End: 10-19-2023 [...] Start : 29-Apr-2011 End : 05-Feb-2012 Discontinued Dry Prong-3 Fatty Acids-Fish Oil 1 EACH capsule (3 sources) Start: 05-31-2019 End: 05-18-2024 Dry Prong-3 Fatty Acids-Fish Oil 1 EACH capsule Discontinued 3 NMA PO TWICE A DAY May 31, 2019 1:00am May 18, 2024 3:27pm supplement Start: 05-31-2019 End: 05-18-2024 Dry Prong-3 Fatty Acids-Fish Oil 1 EACH capsule Discontinued 3 NMA PO TWICE A DAY May 31, 2019 1:00am May 18, 2024 3:27pm predniSONE 10 mg oral tablet (7 sources) Start: 04-13-2024 End: 06-06-2024 take 1 tablet by mouth once daily Prednisone 10 mg tablet Discontinued 10 mg PO .COMPLEX 40 2 April 13, 2024 12:00am June 06, 2024 9:28am 10 mg orally 2 tablets daily for 10 days, then one tablet daily; see taper instructions Start: 02-02-2024 End: 02-10-2024 take 3 tablets by mouth once daily at mealtime Prednisone 20 mg tablet Discontinued 60 mg PO daily 15 February 02, 2024 12:00am February 10, 2024 [...] sources) HMG-CoA Reductase Inhibitor Start: 08-23-2015 End: 09-21-2021 take 2 tablets by mouth at bedtime Simvastatin 40 MG tablet Discontinued 80 mg PO AT BEDTIME August 23, 2015 1:00am March 18, 2021 6:54am cholesterol Start: 08-23-2015 End: 03-18-2021 take 80 mg [...] better Coronary atherosclerosis and other heart disease (4 sources) Calcification of coronary artery; Translations: [Atherosclerotic heart disease of [place] coronary artery without angina pectoris] Onset: 5 11-24-2024 Chronic Deficiency and other anemia (5 sources) Iron deficiency anemia due to blood loss; Translations: [Iron deficiency anemia secondary to blood loss (chronic)] 12-08-2023 Chronic Deficiency and other anemia (2 sources) Iron deficiency anemia secondary to blood loss (chronic); Translations: [Iron deficiency anemia secondary to blood loss (chronic)] Onset: 5 Chronic Deficiency and other anemia (9 sources) Anemia; Translations: [Anemia, unspecified] 09-29-2023 Episodic Diabetes mellitus without complication (7 sources) Abnormal glucose tolerance test; Translations: [Hyperglycemia] Onset: 5 05-20-2015 Episodic Comment on above: new dx-- pt doing ph ase 1diet and dietary chg before meds Diseases of white blood cells (19 sources) Leukocytosis; Translations: [Elevated white blood cell count, unspecified] 02-03-2023 Chronic Disorders of lipid metabolism (20 sources) Hypercholesterolemia; Translations: [Hyperlipidemia] Onset: 5 05-20-2015 Chronic Essential hypertension (20 sources) Benign essential hypertension; Translations: [Essential hypertension] Onset: 5 05-20-2015 Chronic Comment on above: CONTROLLED WITH MED Gastrointestinal hemorrhage (9 sources) Acute gastrointestinal hemorrhage; Translations: [Gastrointestinal hemorrhage, unspecified] 11-04-2023 Episodic Hyperplasia of prostate (8 sources) Benign prostatic hypertrophy without outflow obstruction; Translations: [Benign prostatic hyperplasia] 05-20-2015 Chronic Comment on above: stable Immunizations and screening for infectious disease (5 sources) Need for prophylactic vaccination and inoculation against influenza Episodic Malaise and fatigue (20 sources) Fatigue; Translations: [Other fatigue] Onset: 5 Episodic Other aftercare (20 sources) Long-term current use of anticoagulant; Translations: [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] 02-02-2023 Episodic Other aftercare (19 sources) Drug therapy finding; Translations: [Other nursing home (current) drug therapy] 02-04-2023 Episodic Other aftercare (3 sources) longterm (current) use of 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; Translations: [Long-term (current) use of 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] 11-04-2023 Episodic Other circulatory disease (1 source) Elevated blood-pressure reading without diagnosis of hypertension; Translations: [Elevated blood-pressure reading without diagnosis of hypertension] 05-20-2015 Episodic Other circulatory disease (2 sources) Abnormal chest sounds; Translations: [Abnormal lung sounds] Resolved: 9 05-20-2015 Episodic Other gastrointestinal disorders (13 sources) Dark stools; Translations: [Other fecal abnormalities] 09-10-2023 Episodic Other gastrointestinal disorders (6 sources) Swollen abdomen; Translations: [Abdominal distension (gaseous)] 11-04-2023 Episodic Other hematologic conditions (1 source) Secondary polycythemia; Translations: [Polycythemia, secondary] 06-06-2015 Episodic Other hematologic conditions (13 sources) Hemoglobin low; Translations: [Precipitous drop in hematocrit] 09-10-2023 Episodic Other lower respiratory disease (20 sources) Dyspnea; Translations: [Shortness of breath] 05-20-2015 Episodic Other lower respiratory disease (19 sources) Productive cough ; Translations: [Productive cough] 02-03-2023 Episodic Other lower respiratory disease (17 sources) Nodule of lung; Translations: [Solitary pulmonary nodule] 08-13-2023 Episodic Comment on above: 07/09/23 nodules iden tified on LDCT Other lower respiratory disease (12 sources) Solitary pulmonary nodule; Translations: [Solitary pulmonary nodule] Onset: 5 08-13-2023 Episodic Other lower respiratory disease (6 sources) Dyspnea on exertion; Translations: [Other forms of dyspnea] 11-04-2023 Episodic Other lower respiratory disease (5 sources) Shortness of breath; Translations: [Shortness of [...] Episodic Other nutritional; endocrine; and metabolic disorders (3 sources) Weight increased; Translations: [Abnormal weight gain] 09-09-2023 [...] 9 07-18-2014 Episodic Comment on above: WALKING Residual codes; unclassified (1 source) Organic insomnia, unspecified; Translations: [DISORDERS, ORGANIC INSOMNIA, UNSPECIFIED] 05-20-2015 Chronic Residual codes; unclassified (1 source) Tobacco user; Translations: [Tobacco abuse] 05-20-2015 Chronic Residual codes; unclassified (14 sources) Daytime hypersomnia; Translations: [Hypersomnia, unspecified] 08-13-2023 Chronic Residual codes; unclassified (11 sources) Hypersomnia, unspecified; Translations: [Hypersomnia, unspecified] 08-13-2023 Chronic Residual codes; unclassified (10 sources) Sleep apnea; Translations: [Sleep apnea, unspecified] 09-21-2023 Chronic Residual codes; unclassified (9 sources) Central sleep apnea syndrome; 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] 10-26-2023 Chronic Residual codes; unclassified (1 source) Primary central sleep apnea; 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] Onset: Chronic Residual codes; unclassified (1 source) Needs influenza immunization; Translations: [Need for prophylactic vaccination and inoculation against influenza] 05-20-2015 Episodic Residual codes; unclassified (20 sources) History of cardioversion; Translations: [Other specified postprocedural states] 02-09-2022 Episodic Residual codes; unclassified (19 sources) Edema of lower extremity; Translations: [Localized edema] 02-02-2023 Episodic Residual codes; unclassified (3 sources) Localized edema; Translations: [Edema] 11-04-2023 Episodic Substance-related disorders (20 sources) Tobacco dependence syndrome; Translations: [Nicotine dependence, unspecified, uncomplicated] 01-28-2022 Chronic Comment on above: quit 02/2021 Thyroid disorders (5 sources) Thyrotoxicosis; Translations: [Thyrotoxicosis, unspecified without thyrotoxic [...] sources) Conditions associated with dizziness or vertigo Deficiency and other anemia (9 sources) Anemia, unspecified; Translations: [Anemia, unspecified] Onset: 09-17-2024 09-29-2023 Episodic Other inflammatory condition of skin (1 source) [...] Test Name Value Interpretation Reference Range Facility Cardiovascular stress test r eportOrdered By: Matthew Dodd on 12-26-2024 Study report [facility] [address] [place] [id number] MR#: [id number] Acct: [id number] Name: ANJUM SERRANO Rep #: [id number] : 1945 79 From: Matthew Dodd MD Primary Care: Dr. Reema Myers MD Statu s: REG CLI Referring Dr: Rick Mccormack PA Sex : M C Stress Test Report Pharmacologic myocardial perfusion stress test. 79-year-old man with a history of A-fib Resting EKG demonstrates atrial fibrillation with a rate of 76 bpm. Resting blood pressure is 124/70 mmHg. 0.4 mg of regadenoson was infused per usual protocol followed by rapid intravenous saline flush injection. Continuous EKG monitoring was performed. The maximum heart rate was 81 bpm which was 58% of max impacted heart rate the maximum workload was 1 metabolic equivalent. At rest there were no ST or T wave changes noted to suggest ischemia and at peak infusion nonspecific ST changes were noted which did not meet the criteria for ischemia. No clinical angina is noted. The final blood pressure was 124/70 mmHg. Myocardial perfusion protocol. 14.7 mCi of technetium 99m sestamibi was injected at rest. 0.4 mg of regadenoson was infused per usual protocol. At peak infusion 44.4 mCi of technetium 99m sestamibi was injected stress images were obtained stress and rest images were reconstructed and compared in the short axis vertical long and horizontal long axis. Gated images were also obtained. Perfusion SPECT analysis: Review of the stress images demonstrate normal uptake of tracer noted in all areas of the myocardium. The resting images similar demonstrated normal uptake of tracer noted in all areas of the myocardium. No areas of reversibility are noted to suggest ischemia and no previous infarct is noted. Gated SPECT analysis: The gated ejection fraction is 62%. Conclusion: Normal pharmacologic myocardial perfusion stress test. Preserved ejection fraction. 12/26/24641 Date _ Mathtew Dodd MD CC: Dr. 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 Reema Myers MD Status: REG CLI Referring Dr: Rick Mccormack Sex: M C Stress Test Report Pharmacologic myocardial perfusion stress test. 79-year-old man with a history of A-fib Resting EKG demonstrates atrial fibrillation with a rate of 76 bpm. Resting blood pressure is 124/70 mmHg. 0.4 mg of regadenoson was infused per usual protocol followed by rapid intravenous saline flush injection. Continuous EKG monitoring was performed. The maximum heart rate was 81 bpm which was 58% of max impacted heart rate the maximum workload was 1 metabolic equivalent. At rest there were no ST or T wave changes noted to suggest ischemia and at peak infusion nonspecific ST changes were noted which did not meet the criteria for ischemia. No clinical angina is noted. The final blood pressure was 124/70 mmHg. Myocardial perfusion protocol. 14.7 mCi of technetium 99m sestamibi was injected at rest. 0.4 mg of regadenoson was infused per usual protocol. At peak infusion 44.4 mCi of technetium 99m sestamibi was injected stress images were obtained stress and rest images were reconstructed and compared in the short axis vertical long and horizontal long axis. Gated images were also obtained. Perfusion SPECT analysis: Review of the stress images demonstrate normal uptake of tracer noted in all areas of the myocardium. The resting images similar demonstrated normal uptake of tracer noted in all areas of the myocardium. No areas of reversibility are noted to suggest ischemia and no previous infarct is noted. Gated SPECT analysis: The gated ejection fraction is 62%. Conclusion: Normal pharmacologic myocardial perfusion stress test. Preserved ejection fraction. 12/26/2442 Date Matthew Dodd MD CC: Dr. 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 [place] [address] OFFICE VISIT Date of Service: 12/13/24 MR#: [id number] Acct: [id number] Name: ANJUM SERRANO Rep #: [id number] : 1945 Provider: Payal Sesay NP Age/Sex: 79/M [place] [facility] [place] Status: Signed Assessment and Plan Assessment and [...] Reasons: 6 M FU Chief Complaint: thyrotoxicosis Respite Provider Required: No DME Vendor: [employer] Accompanied by: Self Is patient in pain?: No Allergies No Known Allergies Allergy (Verified 12/13/24 14:15) Medications ???Medication ???Instructions ???Recorded ???Confirmed ???Type atorvastatin 40 mg tablet 40 mg PO QHS 03/18/21 12/13/24 His tory docusate sodi (more content not included)... Normal [facility] Chest without Contraston Chest without Contrast [facility] Imaging Services [address] [place] [address] Chest without Contrast MR#: [id number] Acct: [id number] Name: SERRANOANJUM MCCONNELLD Rep #: [id number] : 1945 M 79 From: William Peter MD PCP: Dr. Reema Myers MD Status: REG CLI Study: Chest without Contrast Date of Exam: 10/23/24 Exam# [id number] Ordering Dr: Lisa Madrigal NP APPLICATION SECURITY ARCHITECT-C PROCEDURE: CHEST WITHOUT CONTRAST 10/23/2024 REASON FOR [...] is present No active disease. Reading Location: [facility] CC: APPLICATION SECURITY ARCHITECT-C Lisa Madrigal; Dr. Reema Myers MD Brake Repair Supervisor: Signed Normal [facility] BETA-HYDROXYBUTYRATEon 09-26 BETA-HYDROXYBUTYRATE 0.1 mmol/L Normal 0.0-0.3 [facility] Comment on above: Performed By: #### 4 5139 #### [facility] [address] [place], [place] [address] Jose Francisco Olmstead M.D. [id number] CBC WITH AUTO DIFFERENTIALon 09-26-2024 AUTO NRBC 0.0 % Normal [facility] Comment on above: Performed By: #### L [id number] #### [facility] [address] [place], [place] [address] Jose Francisco Olmstead M.D. [id number] AUTO NRBC ABS COUNT 0.00 K/mcL Normal 0.00-0.00 [facility] Comment on above: Performed By: #### L [id number] #### LAB [address] [place] [address] Jose Francisco Olmstead M.D. [id number] Erythrocyte distribution width (RBC) [Ratio] 13.6 % Normal 11.6-14.8 [facility] Comment on above: Performed By: #### L [id number] #### [facility] [address] [address] Jose Francisco Olmstead M.D. [id number] Hematocrit (Bld) [Volume fraction] 42.2 % Normal 41.0-53.0 [facility] Comment on above: Performed By: #### L [id number] #### LAB [address] [address] Jose Francisco Olmstead M.D. [id number] Hemoglobin (Bld) [Mass/Vol] 14.0 g/dL Normal 13.5-17.5 [facility] Comment on above: Performed By: #### L [id number] #### [facility] [address] [address] Jose Francisco Olmstead M.D. [id number] MCH (RBC) [Entitic mass] 33.7 pg Normal 26.0-34.0 [facility] Comment on above: Performed By: #### L [id number] #### LAB [address] [address] Jose Francisco Olmstead M.D. [id number] MCV (RBC) [Entitic vol] 101.7 fL High 80.0-100.0 [facility] Comment on above: Performed By: #### L [id number] #### [facility] [address] [address] Jose Francisco Olmstead M.D. [id number] MEAN CORPUSCULAR HEMOGLOBIN CONC 33.2 g/dL Normal 31.0-37.0 [facility] Comment on above: Performed By: #### L [id number] #### [facility] [address] [address] Jose Francisco Olmstead M.D. [id number] Platelet mean volume (Bld) [Entitic vol] 11.4 fL Normal 9.4-12.4 [facility] Comment on above: Performed By: #### L [id number] #### [facility] [address] [address] Jose Francisco Olmstead M.D. [id number] Platelets (Bld) [#/Vol] 142 10*3/uL Low 150-400 [facility] Comment on above: Performed By: #### L [id number] #### [facility] LAB [address] [address] Jose Francisco Olmstead M.D. [id number] RBC (Bld) [#/Vol] 4.15 10*6/uL Low 4.50-5.90 [facility] Comment on above: Performed By: #### L [id number] #### [facility] LAB [address] [address] Jose Francisco Olmstead M.D. [id number] WBC (Bld) [#/Vol] 7.87 10*3/uL Normal 4.50-11.00 [facility] Comment on above: Performed By: #### L [id number] #### [facility] [address] [address] Jose Francisco Olmstead M.D. [id number] COMPREHENSIVE METABOLIC PANE Fahad 09-26-2024 Albumin [Mass/Vol] 4.4 g/dL Normal 3.2-5.2 [facility] Comment on above: Order Comment: [facility] has implemented the eGFR calculation approach that does not have a coefficient for race that conforms to the NKF-ASN Task Force Recommendations. Performed By: #### 4 6126 #### MH LAB [address] [address] Jose Francisco Olmstead M.D. [id number] ALP [Catalytic activity/Vol] 64 U/L Normal 40-150 [facility] Comment on above: Order Comment: [facility] has implemented the eGFR calculation approach that does not have a coefficient for race that conforms to the NKF-ASN Task Force Recommendations. Performed By: #### 4 6126 #### LAB [address] [address] Jose Francisco Olmstead M.D. [id number] ALT [Catalytic activity/Vol] 42 U/L Normal 0-50 U/L [facility] Comment on above: Order Comment: [facility] has implemented the eGFR calculation approach that does not have a coefficient for race that conforms to the NKF-ASN Task Force Recommendations. Performed By: #### 4 6126 #### LAB [address] [address] Jose Francisco Olmstead M.D. [id number] Anion gap [Moles/Vol] 19 mmol/L Normal 10-[address] [facility] Comment on above: Order Comment: [facility] has implemented the eGFR calculation approach that does not have a coefficient for race that conforms to the NKF-ASN Task Force Recommendations. Performed By: #### 4 6126 #### LAB [address] [address] Jose Francisco Olmstead M.D. [id number] AST [Catalytic activity/Vol] 21 U/L Normal 0-50 U/L [facility] Comment on above: Order Comment: [facility] has implemented the eGFR calculation approach that does not have a coefficient for race that conforms to the NKF-ASN Task Force Recommendations. Performed By: #### 4 6126 #### LAB [address] [address] Jose Francisco Olmstead M.D. [id number] Bilirubin [Mass/Vol] 0.8 mg/dL Normal 0.0-1.3 [facility] Comment on above: Order Comment: [facility] has implemented the eGFR calculation approach that does not have a coefficient for race that conforms to the NKF-ASN Task Force Recommendations. Performed By: #### 4 6126 #### LAB [address] [address] Jose Francisco Olmstead M.D. [id number] Calcium [Mass/Vol] 9.3 mg/dL Normal 8.4-10.2 [facility] Comment on above: Order Comment: [facility] has implemented the eGFR calculation approach that does not have a coefficient for race that conforms to the NKF-ASN Task Force Recommendations. Performed By: #### 4 6126 #### LAB [address] [place] [address] Jose Francisco Olmstead M.D. [id number] Chloride [Moles/Vol] 100 mmol/L Normal 98-108 [facility] Comment on above: Order Comment: [facility] has implemented the eGFR calculation approach that does not have a coefficient for race that conforms to the NKF-ASN Task Force Recommendations. Performed By: #### 4 6126 #### LAB [address] [address] Jose Francisco Olmstead M.D. [id number] Creatinine [Mass/Vol] 1.24 mg/dL Normal 0.80-1.[address] [facility] Comment on above: Order Comment: [facility] has implemented the eGFR calculation approach that does not have a coefficient for race that conforms to the NKF-ASN Task Force Recommendations. Performed By: #### 4 6126 #### LAB [address] [address] Jose Francisco Olmstead M.D. [id number] EGFR 58 mL/min/1.73 m2 Low >=60 [facility] Comment on above: Order Comment: [facility] has implemented the eGFR calculation approach that does not have a coefficient for race that conforms to the NKF-ASN Task Force Recommendations. Result Comment: Lisa mated GFR was calculated using the 2020 CKD-EPI creatinine equation. Performed By: #### 4 6126 #### LAB [address] [address] Jose Francisco Olmstead M.D. [id number] Glucose [Mass/Vol] 365 mg/dL High 65-99 [facility] Comment on above: Order Comment: [facility] has implemented the eGFR calculation approach that does not have a coefficient for race that conforms to the NKF-ASN Task Force Recommendations. Performed By: #### 4 6126 #### LAB [address] [address] Jose Francisco Olmstead M.D. [id number] HCO3 (Bld) [Moles/Vol] 24 mmol/L Normal 21-32 [facility] Comment on above: Order Comment: [facility] has implemented the eGFR calculation approach that does not have a coefficient for race that conforms to the NKF-ASN Task Force Recommendations. Performed By: #### 4 6126 #### LAB [address] [address] Jose Francisco Olmstead M.D. [id number] Potassium [Moles/Vol] 4.5 mmol/L Normal 3.5-5.[address] [facility] Comment on above: Order Comment: [facility] has implemented the eGFR calculation approach that does not have a coefficient for race that conforms to the NKF-ASN Task Force Recommendations. Performed By: #### 4 6126 #### LAB [address] [address] Jose Francisco Olmstead M.D. [id number] Protein [Mass/Vol] 6.5 g/dL Normal 6.0-8.0 [facility] Comment on above: Order Comment: [facility] has implemented the eGFR calculation approach that does not have a coefficient for race that conforms to the NKF-ASN Task Force Recommendations. Performed By: #### 4 6126 #### LAB [address] [address] Jose Francisco Olmstead M.D. [id number] Sodium [Moles/Vol] 138 mmol/L Normal 135-145 [facility] Comment on above: Order Comment: [facility] has implemented the eGFR calculation approach that does not have a coefficient for race that conforms to the NKF-ASN Task Force Recommendations. Performed By: #### 4 6126 #### LAB [address] [address] Jose Francisco Olmstead M.D. [id number] Urea nitrogen [Mass/Vol] 22 mg/dL Normal 8-25 [facility] Comment on above: Order Comment: [facility] has implemented the eGFR calculation approach that does not have a coefficient for race that conforms to the NKF-ASN Task Force Recommendations. Performed By: #### 4 6126 #### LAB [address] [place], [place] [address] Jose Francisco Olmstead M.D. [id number] Urea nitrogen/Creatinine [Mass ratio] 17.7 mg/mg Normal 10.0-20.0 [facility] Comment on above: Order Comment: [facility] has implemented the eGFR calculation approach that does not have a coefficient for race that conforms to the NKF-ASN Task Force Recommendations. Performed By: #### 4 6126 #### LAB [address] [place], [place] [address] Jose Francisco Olmstead M.D. [id number] ED Prov Noteon 09-26-2024 ED Prov Note ED PROVIDER NOTE [facility] EM[facility]ENCY [facility] NAME: Anjum Serrano AGE: 79 y.o. : 1945 VISIT DATE: 09/26/2024 CSN: [id number] PCP: Reema Myers MD Chief Complaint Patient [...] was referred to this ED by his [place] provider of record for hyperglycemia. Reports blood sugar at that office was 419. Patient has no history of diabetes. He denies any complaints at this time. He does report that he recently had a cough and just finished several days of prednisone therapy yesterday. Differential diagnosis include (more content not included)... Normal [facility] MANUAL DIFFERENTIALon 2024 BASOPHILS - ABS (DIFF) 0.00 K/mcL Normal 0.00-0.30 [facility] Comment on above: Performed By: #### 4 5426 #### LAB [address] [address] Jose Francisco Olmstead M.D. [id number] BASOPHILS - REL (DIFF) 0.0 % Normal [facility] Comment on above: Performed By: #### 4 5456 #### LAB [address] [address] Jose Francisco Olmstead M.D. [id number] EOSINOPHILS - ABS (DIFF) 0.00 K/mcL Normal 0.00-0.50 [facility] Comment on above: Performed By: #### 4 5456 #### LAB [address] [address] Jose Francisco Olmstead M.D. [id number] EOSINOPHILS - REL (DIFF) 0.0 % [facility] Comment on above: Performed By: #### 4 5499 #### LAB [address] [address] Jose Francisco Olmstead M.D. [id number] LYMPHOCYTES - ABS (DIFF) 1.34 K/mcL Normal 0.90-4.00 [facility] Comment on above: Performed By: #### 4 6498 #### LAB [address] [address] Jose Francisco Olmstead M.D. [id number] LYMPHOCYTES - REL (DIFF) 17.0 % [facility] Comment on above: Performed By: #### 4 3981 #### LAB [address] [address] Jose Francisco Olmstead M.D. [id number] METAMYELOCYTES-REL (DIFF) 1.0 % [facility] Comment on above: Performed By: #### 4 2722 #### LAB [address] [address] Jose Francisco Olmstead M.D. [id number] MONOCYTES - ABS (DIFF) 0.55 K/mcL Normal 0.30-0.90 [facility] Comment on above: Performed By: #### 4 5456 #### LAB [address] [place] [address] Jose Francisco Olmstead M.D. [id number] MONOCYTES - REL (DIFF) 7.0 % Normal [facility] Comment on above: Performed By: #### 4 5456 #### LAB [address] [address] Jose Francisco Olmstead M.D. [id number] MYELOCYTES RELATIVE PERCENT 5.0 % [facility] Comment on above: Performed By: #### 4 5456 #### LAB [address] [address] Jose Francisco Olmstead M.D. [id number] NEUTROPHILS - ABS (DIFF) 5.98 K/mcL Normal 1.70-7.00 [facility] Comment on above: Performed By: #### 4 5456 #### LAB [address] [address] Jose Francisco Olmstead M.D. [id number] NEUTROPHILS - REL (DIFF) 70.0 % [facility] Comment on above: Performed By: #### 4 5456 #### LAB [address] [address] Jose Francisco Olmstead M.D. [id number] MORPHOLOGYon 09-26-2024 OVAL SCAN Few [facility] Comment on above: Performed By: #### L [id number] #### [facility] LAB [address] [address] Jose Francisco Olmstead M.D. [id number] PLATELET ESTIMATE Decreased Abnormal Normal [facility] Comment on above: Performed By: #### L AB295 #### MH LAB [address] [place] [address] Jose Francisco Olmstead M.D. [id number] POLY SCAN Few [facility] Comment on above: Performed By: #### L AB295 #### MH LAB [address] [address] Jose Francisco Olmstead M.D. [id number] RBC MORPH SCAN See Comment Normal [facility] Comment on above: Result Comment: RBC Indices confirmed with manual peripheral smear review. Performed By: #### L AB295 #### MH LAB [address] [place], [place] [address] Jose Francisco Olmstead M.D. [id number] POC GLUCOSE - [facility] 025 Glucose [Mass/Vol] 187 mg/dL High [address] [place] [address] Comment on above: Performed By: #### 4 6932 #### MH LAB [address] [place] [address] Jose Francisco Olmstead M.D. [id number] Glucose [Mass/Vol] 331 mg/dL High [address] [place] [address] Comment on above: Performed By: #### 4 6932 #### LAB [address] [place], [place] [address] Jose Francisco Olmstead M.D. [id number] Absolute lymphocyte countOrd ered By: Tamie Coleman on 08-30-2024 Lymphocytes Auto (Unsp spec) [#/Vol] 1.01 10*3/uL 0.83-4.51 [facility] Absolute neutrophil countOrd ered By: Tamie Coleman on 08-30-2024 Neutrophils (Bld) [#/Vol] 3.4 10*3/uL 2.0-7.7 [facility] Automated lymphocyte count a s percentage of total leukocytesOrdered By: Tamie Coleman on 08-30-2024 Lymphocytes/100 WBC Auto (Unsp spec) 17.3 % Low 19-41 [facility] Basophil percentageOrdered B y: Tamie Coleman on 08-30-2024 Basophils/100 WBC (Bld) 0.5 % 0-1 [facility] CBC W/Diff, Automatedon Absolute Lymph 1.01 X10 3/uL Normal 0.83-4.51 [facility] Comment on above: Order Comment: DR Jericho ROSENBERG ORDERED TSH, FT4ALL OTHER LABS ARE FOR DR COLEMAN Performed By: #### L 506.0400, L100.0100, L501.9520, L503.6550, L503.6030, L100.9950 ####[facility] [address] [place], [address] Absolute Neut 3.4 X10 3/uL Normal 2.0-7.7 [facility] Comment on above: Order Comment: DR Jericho ROSENBERG ORDERED TSH, FT4ALL OTHER LABS ARE FOR DR COLEMAN Performed By: #### L 506.0400, L100.0100, L501.9520, L503.6550, L503.6030, L100.9950 ####[facility] [address] [place], [address] Basophils/100 WBC (Bld) 0.5 % Normal 0-1 [facility] Comment on above: Order Comment: DR Jericho ROSENBERG ORDERED TSH, FT4ALL OTHER LABS ARE FOR DR COLEMAN Performed By: #### L 506.0400, L100.0100, L501.9520, L503.6550, L503.6030, L100.9950 ####[facility] [address] [place], [address] Eosinophils/100 WBC (Bld) 9.4 % High 0-5 [facility] Comment on above: Order Comment: DR Jericho ROSENBERG ORDERED TSH, FT4ALL OTHER LABS ARE FOR DR COLEMAN Performed By: #### L 506.0400, L100.0100, L501.9520, L503.6550, L503.6030, L100.9950 ####[facility] [address] [place], [address] Erythrocyte distribution width (RBC) [Ratio] 13.1 % Normal 11.6-14.6 [facility] Comment on above: Order Comment: DR Jericho ROSENBERG ORDERED TSH, FT4ALL OTHER LABS ARE FOR DR COLEMAN Performed By: #### L 506.0400, L100.0100, L501.9520, L503.6550, L503.6030, L100.9950 ####[facility] [address] [place], [address] Hematocrit (Bld) [Volume fraction] 40.9 % Normal 40-54 [facility] Comment on above: Order Comment: DR Jericho ROSENBERG ORDERED TSH, FT4ALL OTHER LABS ARE FOR DR COLEMAN Performed By: #### L 506.0400, L100.0100, L501.9520, L503.6550, L503.6030, L100.9950 ####[facility] [address] [place], [address] Hemoglobin (Bld) [Mass/Vol] 13.7 g/dL Normal 13.0-16.5 [facility] Comment on above: Order Comment: DR Jericho ROSENBERG ORDERED TSH, FT4ALL OTHER LABS ARE FOR DR COLEMAN Performed By: #### L 506.0400, L100.0100, L501.9520, L503.6550, L503.6030, L100.9950 ####[facility] [address] [place], [address] IG% 4.300 High 0.0-0.9 [facility] Comment on above: Order Comment: DR Jericho ROSENBERG ORDERED TSH, FT4ALL OTHER LABS ARE FOR DR COLEMAN Result Comment: IG% - Immature Granulocytes (promyelocytes, myelocytes and metamyelocytes) > 1% indicates that a LEFT SHIFT is Present. Performed By: #### L 506.0400, L100.0100, L501.9520, L503.6550, L503.6030, L100.9950 ####[facility] [address] [place], [address] Lymphocytes/100 WBC (Bld) 17.3 % Low 19-41 [facility] Comment on above: Order Comment: DR Jericho ROSENBERG ORDERED TSH, FT4ALL OTHER LABS ARE FOR DR COLEMAN Performed By: #### L 506.0400, L100.0100, L501.9520, L503.6550, L503.6030, L100.9950 ####[facility] [address] [place], [address] MCH (RBC) [Entitic mass] 34.0 pg High 27.0-32.0 [facility] Comment on above: Order Comment: DR Jericho ROSENBERG ORDERED TSH, FT4ALL OTHER LABS ARE FOR DR COLEMAN Performed By: #### L 506.0400, L100.0100, L501.9520, L503.6550, L503.6030, L100.9950 ####[facility] [address] [place], [address] MCHC (RBC) [Mass/Vol] 33.5 g/dL Normal 32-36 [facility] Comment on above: Order Comment: DR Jericho ROSENBERG ORDERED TSH, FT4ALL OTHER LABS ARE FOR DR COLEMAN Performed By: #### L 506.0400, L100.0100, L501.9520, L503.6550, L503.6030, L100.9950 ####[facility] [address] [place], [address] MCV (RBC) [Entitic vol] 101.5 fL High 80-94 [facility] Comment on above: Order Comment: DR Jericho ROSENBERG ORDERED TSH, FT4ALL OTHER LABS ARE FOR DR COLEMAN Performed By: #### L 506.0400, L100.0100, L501.9520, L503.6550, L503.6030, L100.9950 ####[facility] [address] [place], [address] Monocytes/100 WBC (Bld) 9.4 % Normal 0-10 [facility] Comment on above: Order Comment: DR Jericho ROSENBERG ORDERED TSH, FT4ALL OTHER LABS ARE FOR DR COLEMAN Performed By: #### L 506.0400, L100.0100, L501.9520, L503.6550, L503.6030, L100.9950 ####[facility] [address] [place], [address] Neutrophils/100 WBC (Bld) 59.1 % Normal 47-70 [facility] Comment on above: Order Comment: DR Jericho ROSENBERG ORDERED TSH, FT4ALL OTHER LABS ARE FOR DR COLEMAN Performed By: #### L 506.0400, L100.0100, L501.9520, L503.6550, L503.6030, L100.9950 ####[facility] [address] [place], [address] Nucleated RBC (Bld) [#/Vol] 0.3 10*3/uL Normal 0-5 [facility] Comment on above: Order Comment: DR Jericho ROSENBERG ORDERED TSH, FT4ALL OTHER LABS ARE FOR DR COLEMAN Performed By: #### L 506.0400, L100.0100, L501.9520, L503.6550, L503.6030, L100.9950 ####[facility] [address] [place], [address] Platelet mean volume (Bld) [Entitic vol] 11.4 fL Normal 6.2-12.0 [facility] Comment on above: Order Comment: DR Jericho ROSENBERG ORDERED TSH, FT4ALL OTHER LABS ARE FOR DR COLEMAN Performed By: #### L 506.0400, L100.0100, L501.9520, L503.6550, L503.6030, L100.9950 ####[facility] [address] [place], [address] Platelets (Bld) [#/Vol] 114 10*3/uL Low 150-450 [facility] Comment on above: Order Comment: DR Jericho ROSENBERG ORDERED TSH, FT4ALL OTHER LABS ARE FOR DR COLEMAN Performed By: #### L 506.0400, L100.0100, L501.9520, L503.6550, L503.6030, L100.9950 ####[facility] [address] [place], [address] RBC (Bld) [#/Vol] 4.03 10*6/uL Low 4.6-6.2 [facility] Comment on above: Order Comment: DR Jericho ROSENBERG ORDERED TSH, FT4ALL OTHER LABS ARE FOR DR COLEMAN Performed By: #### L 506.0400, L100.0100, L501.9520, L503.6550, L503.6030, L100.9950 ####[facility] [address] [place], [address] RDW SD 48.6 fl High 35.1-43.9 [facility] Comment on above: Order Comment: DR Jericho ROSENBERG ORDERED TSH, FT4ALL OTHER LABS ARE FOR DR COLEMAN Performed By: #### L 506.0400, L100.0100, L501.9520, L503.6550, L503.6030, L100.9950 ####[facility] [address] [place], [address] WBC (Bld) [#/Vol] 5.8 10*3/uL Normal 4.4-11.0 [facility] Comment on above: Order Comment: DR Jericho ROSENBERG ORDERED TSH, FT4ALL OTHER LABS ARE FOR DR COLEMAN Performed By: #### L 506.0400, L100.0100, L501.9520, L503.6550, L503.6030, L100.9950 ####[facility] [address] [place], [address] Eosinophil percentageOrdered By: Tamie Coleman on 08-30-2024 Eosinophils/100 WBC (Bld) 9.4 % High 0-5 [facility] Erythrocyte distribution wid th ratioOrdered By: Tamie Coleman on 08-30-2024 Erythrocyte distribution width (RBC) [Ratio] 13.1 % 11.6-14.6 [facility] Erythrocyte distribution wid th standard deviationOrdered By: Tamie Coleman on 08-30-2024 Erythrocyte distribution width (RBC) [Ratio] 48.6 fl High 35.1-43.9 [facility] Ferritinon 08-30-2024 Ferritin [Mass/Vol] 50 ng/mL Normal 37-417 [facility] Comment on above: Order Comment: DR Jericho ROSENBERG ORDERED TSH, FT4ALL OTHER LABS ARE FOR DR COLEMAN Performed By: #### L 506.0400, L100.0100, L501.9520, L503.6550, L503.6030, L100.9950 ####[facility] [address] [place], [place], [address] Hematocrit Auto (Bld) [Volum e fraction]Ordered By: Tamie Coleman on 08-30-2024 Hematocrit (Bld) [Volume fraction] 40.9 % 40-54 [facility] Hemoglobin measurementOrdere d By: Tamie Coleman on 08-30-2024 Hemoglobin (Bld) [Mass/Vol] 13.7 g/dL 13.0-16.5 [facility] Immature granulocytes/100 WB C Auto (Bld)Ordered By: Tamie Coleman on 08-30-2024 Immature granulocytes/100 WBC (Bld) 4.300 % High 0.0-0.9 [facility] Comment on above: IG% - Immature Granu locytes (promyelocytes, myelocytes and metamyelocytes) > 1% indicates that a LEFT SHIFT is Present. Iron measurement (mass/mass) Ordered By: Tamie Coleman on 08-30-2024 Iron (Unsp spec) [Mass/Mass] 67 ug/dL 65-175 [facility] Iron+Iron Binding Capacityon 08-30-2024 Iron [Mass/Vol] 67 ug/dL Normal 65-175 [facility] Comment on above: Order Comment: DR Jericho ROSENBERG ORDERED TSH, FT4ALL OTHER LABS ARE FOR DR COLEMAN Performed By: #### L 506.0400, L100.0100, L501.9520, L503.6550, L503.6030, L100.9950 ####[facility] [address] [place], [place], [id number]) IRON SATURATION 18.0 Normal 15.0-55.0 [facility] Comment on above: Order Comment: DR Jericho ROSENBERG ORDERED TSH, FT4ALL OTHER LABS ARE FOR DR COLEMAN Performed By: #### L 506.0400, L100.0100, L501.9520, L503.6550, L503.6030, L100.9950 ####[facility] [address] [place], [address] TIBC 378 ug/dL Normal 250-450 [facility] Comment on above: Order Comment: DR Jericho ROSENBERG ORDERED TSH, FT4ALL OTHER LABS ARE FOR DR COLEMAN Performed By: #### L 506.0400, L100.0100, L501.9520, L503.6550, L503.6030, L100.9950 ####[facility] [address] [place], [address] UIBC 311 ug/dL Normal 228-428 [facility] Comment on above: Order Comment: DR Jericho ROSENBERG ORDERED TSH, FT4ALL OTHER LABS ARE FOR DR COLEMAN Performed By: #### L 506.0400, L100.0100, L501.9520, L503.6550, L503.6030, L100.9950 ####[facility] [address] [facility] [facility] [address] [place], [address] MCV (mean corpuscular volume ) determinationOrdered By: Tamie Coleman on 08-30-2024 MCV (RBC) [Entitic vol] 101.5 fL High 80-94 [facility] Mean corpuscular hemoglobin (MCH) determinationOrdered By: Tamie Coleman on 08-30-2024 MCH (RBC) [Entitic mass] 34.0 pg High 27.0-32.0 [facility] Mean corpuscular hemoglobin concentration (MCHC) determinationOrdered By: Tamie Coleman on 08-30-2024 MCHC (RBC) [Mass/Vol] 33.5 g/dL 32-36 [facility] Mean platelet volume determi nationOrdered By: Tamie Coleman on 08-30-2024 Platelet mean volume (Bld) [Entitic vol] 11.4 fL 6.2-12.0 [facility] Monocyte percentageOrdered B y: Tamie Coleman on 08-30-2024 Monocytes/100 WBC (Bld) 9.4 % 0-10 [facility] Neutrophil percentageOrdered By: Tamie Coleman on 08-30-2024 Neutrophils/100 WBC (Bld) 59.1 % 47-70 [facility] No Panel InformationOrdered By: Tamie Coleman on 08-30-2024 Unsaturated Iron Binding Capacity 311 ug/dL 228-428 [facility] Nucleated red blood cell per centageOrdered By: Tamie Coleman on 08-30-2024 Nucleated RBC/100 WBC (Bld) [Ratio] 0.3 % 0-5 [facility] Oncology Visit Reporton Oncology Visit Report [facility] [address] [place] [address] OFFICE VISIT Date of Service: 08/30/24 1402 MR#: [id number] Acct: [id number] Name: OFELIAANJUM SIMMONS Rep #: [id number] : 1945 From: Tamie Coleman MD Age/Sex: 79/M Location: [facility] Status: Signed HPI Subjective Chief Complaint thyrotoxicosis [...] previous smo (more content not included)... Normal [facility] Platelet countOrdered By: Carla Coleman on 08-30-2024 Platelets (Bld) [#/Vol] 114 10*3/uL Low 150-450 [facility] RBC Auto (Bld) [#/Vol]Ordere d By: Tamie Coleman on 08-30-2024 RBC (Bld) [#/Vol] 4.03 10*6/uL Low 4.6-6.2 [facility] Retic Panelon 08-30-2024 IM RET FRACTION 21.90 High 3.00-15.90 [facility] Comment on above: Order Comment: DR Jericho ROSENBERG ORDERED TSH, FT4ALL OTHER LABS ARE FOR DR COLEMAN Performed By: #### L 506.0400, L100.0100, L501.9520, L503.6550, L503.6030, L100.9950 ####[facility] [address] [place], [place], [id number] RET-HE 38.0 pg High 30-35 [facility] Comment on above: Order Comment: DR Jericho ROSENBERG ORDERED TSH, FT4ALL OTHER LABS ARE FOR DR COLEMAN Performed By: #### L 506.0400, L100.0100, L501.9520, L503.6550, L503.6030, L100.9950 ####[facility] [address] [place], [address] Retic Count 2.79 High 0.5-1.5 [facility] Comment on above: Order Comment: DR Jericho ROSENBERG ORDERED TSH, FT4ALL OTHER LABS ARE FOR DR COLEMAN Performed By: #### L 506.0400, L100.0100, L501.9520, L503.6550, L503.6030, L100.9950 ####[facility] [address] [place], [address] Reticulocyte hemoglobin equi valent (RET-He) measurementOrdered By: Tamie Coleman on 08-30-2024 Hemoglobin (Reticulocytes) [Entitic mass] 38.0 pg High 30-35 [facility] Reticulocytes Auto (Bld) [#/ Vol]Ordered By: Tamie Coleman on 08-30-2024 Reticulocytes/100 RBC (Bld) 2.79 % High 0.5-1.5 [facility] Serum or plasma ferritin sandra surement (mass/volume)Ordered By: Tamie Coleman on 08-30-2024 Ferritin [Mass/Vol] 50 ng/mL 37-417 [facility] Serum or plasma iron saturat ion measurement (mass fraction)Ordered By: Tamie Coleman on 08-30-2024 Iron saturation [Mass fraction] 18.0 % 15.0-55.0 [facility] T4 Free Directon 08-30-2024 T4 FREE DIRECT 1.10 ng/dL Normal 0.76-1.46 [facility] Comment on above: Order Comment: DR Jericho ROSENBERG ORDERED TSH, FT4ALL OTHER LABS ARE FOR DR COLEMAN Performed By: #### L 506.0400, L100.0100, L501.9520, L503.6550, L503.6030, L100.9950 ####[facility] [address] [place], [place], [id number] T4 freeOrdered By: Tariq Rosenberg on 08-30-2024 Free T4 [Mass/Vol] 1.10 ng/dL 0.76-1.46 [facility] TSH DL <= 0.005 mIU/L QnOrde red By: Tariq Rosenberg on 08-30-2024 TSH Qn 2.840 uIU/mL 0.300-4.200 [facility] Thyroid Stim Hormone (TSH)on 08-30-2024 TSH 2.840 uIU/mL Normal 0.300-4.200 [facility] Comment on above: Order Comment: DR Jericho ROSENBERG ORDERED TSH, FT4 ALL OTHER LABS ARE FOR DR COLEMAN Performed By: #### L 506.0400, L100.0100, L501.9520, L503.6550, L503.6030, L100.9950 #### [facility] [address] [place], [place], [phone] White blood cell (WBC) count Ordered By: Tamie Coleman on 08-30-2024 WBC (Bld) [#/Vol] 5.8 10*3/uL 4.4-11.0 [facility] High density lipoprotein (HD L) measurementOrdered By: Buck Larsen on 08-16-2024 Cholesterol in HDL [Mass/Vol] 55 mg/dL >40 [facility] Comment on above: The drugs N-Acetylcy steine and Metamizole may falsely depress this assay. Reference Range HDL <40 mg/dL Low HDL Cholesterol HDL >or= 60 mg/dL High HDL Cholesterol Lipid Profileon 08-16-2024 Cholesterol [Mass/Vol] 149 mg/dL Normal 200 [facility] Comment on above: Result Comment: <200 mg/dL Desirable 200-240 mg/dL Borderline >240 mg/dL High Risk Performed By: Madelin### L 500.4100 ####[facility] [address] [place], [address] Cholesterol in HDL [Mass/Vol] 55 mg/dL Normal [facility] Comment on above: Result Comment: The drugs N-Acetylcysteine and Metamizole may falsely depress this assay. Reference Range HDL <40 mg/dL Low HDL Cholesterol HDL >or= 60 mg/dL High HDL Cholesterol Performed By: #### L 500.4100 ####[facility] [address] [place], [address] Cholesterol in LDL [Mass/Vol] 69 mg/dL Normal 0-130 [facility] Comment on above: Performed By: #### L 500.4100 ####[facility] [address] [place], [address] Cholesterol in VLDL [Mass/Vol] 25 mg/dL Normal 5-40 [facility] Comment on above: Performed By: #### L 500.4100 ####[facility] [address] [place], [address] Triglyceride [Mass/Vol] 123 mg/dL Normal [facility] Comment on above: Result Comment: The drugs N-Acetylcysteine and Metamizole may falsely depress this assay. Serum Triglycerides Reference Interval Normal <150 mg/dL Borderline high 150 - 199 mg/dL High 200 - 499 mg/dL Very High > or = 500 mg/dL Performed By: #### L 500.4100 ####[facility] [address] [place], [address] Low density lipoprotein (LDL ) cholesterol measurementOrdered By: Buck Larsen on 08-16-2024 Cholesterol in LDL [Mass/Vol] 69 mg/dL 0-130 [facility] Serum or plasma cholesterol measurement (mass/volume)Ordered By: Buck Larsen on 08-16-2024 Cholesterol [Mass/Vol] 149 mg/dL <200 [facility] Comment on above: <200 mg/dL Desirable 200-240 mg/dL Borderline >240 mg/dL High Risk Triglycerides measurementOrd ered By: Buck Larsen on 08-16-2024 Triglyceride [Mass/Vol] 123 mg/dL <199 [facility] Comment on above: The drugs N-Acetylcy steine and Metamizole may falsely depress this assay.Serum Triglycerides Reference Interval Normal <150 mg/dL Borderline high 150 - 199 mg/dL High 200 - 499 mg/dL Very High > or = 500 mg/dL Very low density lipoprotein (VLDL) cholesterol measurementOrdered By: Buck Larsen on 08-16-2024 Very low density lipoprotein (VLDL) cholesterol measurement 25 mg/dL 5-40 [facility] Cardiology Visit Reporton Cardiology Visit Report [facility] [place] [address] OFFICE VISIT Date of Service: 08/09/24 MR#: [id number] Acct: [id number] Name: ANJUM SERRANO Rep #: [id number] : 1945 Provider: KRISTIAN Weinstein Age/Sex: 79/M [place] Status: Signed HPI HPI History of [...] 94 Intake Visit Reasons: 6 M FU Respite Provider Required: No Is patient in pain?: No [...] Tobacco dependence Essential hypertension Hyperlipidemia Surgical History (Reviewed 06/06/24 @ 08:39 by Lisa Madrigal APPLICATION SECURITY ARCHITECT, APPLICATION SECURITY ARCHITECT-C) Hx of right cataract extraction Hx of [...] audible wheeze (more content not included)... Normal [facility] Endocrinology Visit Reporton 07-10-2024 Endocrinology Visit Report [facility] [address] [place] [address] OFFICE VISIT Date of Service: 07/10/24 MR#: [id number] Acct: [id number] Name: ANJUM SERRANO Rep #: [id number] : 1945 Provider: Kristen Oleary Age/Sex: 78/M Location: [facility] Status: Signed Intake Vital Signs 04/10/24 11:05 [...] the past year?: No PFSH Medical History (Reviewed 06/06/24 @ 08:39 by Lisa Madrigal APPLICATION SECURITY ARCHITECT, APPLICATION SECURITY ARCHITECT-C) Thyrotoxicosis Iron deficiency anemia due to chronic [...] Rosario Signature: Date (if applicable) CC: Normal [facility] Free T3on 06-15-2024 Free T3 [Mass/Vol] 1.8 pg/mL Low 2.18-3.98 [facility] Comment on above: Performed By: #### L 506.0400, L501.93167, L501.9520 ####[facility] [address] [place], [place], [id number] T4 Free Directon 06-15-2024 T4 FREE DIRECT 1.03 ng/dL Normal 0.76-1.46 [facility] Comment on above: Performed By: #### L 506.0400, L501.95681, L501.9520 ####[facility] [address] [place], [place], [id number] Thyroid Stim Hormone (TSH)on 06-15-2024 TSH 2.090 uIU/mL Normal 0.358-3.740 [facility] Comment on above: Performed By: #### L 506.0400, L501.01618, L501.9520 ####[facility] [address] [place], [place], [address] Pulmonary Visit Reporton Pulmonary Visit Report [facility] [address] [place] [address] OFFICE VISIT Date of Service: 06/06/24 MR#: [id number] Acct: [id number] Name: ANJUM SERRANO Rep #: [id number] : 1945 Provider: SHIRA Madrigal Age/Sex: 78/M [place] [facility] Status: Signed Assessment and Plan Assessment and [...] air Intake Visit Reasons: 4 M FU Respite Provider Required: No DME Vendor: pap- Accompanied by: [...] you fallen in the past year?: Yes [facility] Medical History (Reviewed 06/06/24 @ 08:39 by Lisa Madrigal APPLICATION SECURITY ARCHITECT, APPLICATION SECURITY ARCHITECT-C) Thyrotoxicosis Iron deficiency anemia due to chronic [...] Tobacco dependence Essential hypertension Hyperlipidemia Surgical History (Reviewed 06/06/24 @ 08:39 by Lisa Madrigal APPLICATION SECURITY ARCHITECT, APPLICATION SECURITY ARCHITECT-C) Hx of right cataract extraction Hx of left cataract extraction History of transurethral resection of prostate History of appendectomy Family History (Reviewed 06/06/24 @ 08:39 by Lisa Madrigal APPLICATION SECURITY ARCHITECT, APPLICATION SECURITY ARCHITECT-C) Mother Heart disease Hyperte (more content not included)... Normal [facility] Endocrinology Visit Reporton 05-18-2024 Endocrinology Visit Report [facility] [address] [place] [address] OFFICE VISIT Date of Service: 05/18/24 MR#: [id number] Acct: [id number] Name: ANJUM SERRANO Rep #: [id number] : 1945 Provider: Kristen Oleary Age/Sex: 78/M Location: [facility] Status: Signed Intake Vital Signs 04/10/24 11:05 [...] bilaterally Co (more content not included)... Normal [facility] Free T3on 05-08-2024 Free T3 [Mass/Vol] 1.8 pg/mL Low 2.18-3.98 [facility] Comment on above: Performed By: #### L 506.0400, L501.06907, L501.9520 ####[facility] [address] [place], [address] T4 Free Directon 05-08-2024 T4 FREE DIRECT 1.21 ng/dL Normal 0.76-1.46 [facility] Comment on above: Performed By: #### L 506.0400, L501.79236, L501.9520 ####[facility] [address] [place], [address] Thyroid Stim Hormone (TSH)on 05-08-2024 TSH Qn m[IU]/L Low 0.358-3.740 [facility] Comment on above: Performed By: #### L 506.0400, L501.67117, L501.9520 ####[facility] [address] [place], [address] Thyroid Uptake Single or Mul ton 04-12-2024 Thyroid Uptake Single or Mult [facility] [address] [place] [address] Thyroid Uptake Single or Mult MR#: [id number] Acct: [id number] Name: ANJUM SERRANO Rep #: [id number] : 1945 M 78 From: William Arango PCP: Dr. Reema Myers MD Status: REG CLI Study: Thyroid Uptake Single or Mult Date of Exam: 1 Exam# [id number] Ordering [place]: [place] [id number] CLINICAL: 78-year-old male with history of clinical [...] Proof Editing CC: Dr. Reema Myers MD Brake Repair Supervisor: Signed Normal [facility] Endocrinology Visit Reporton 04-10-2024 Endocrinology Visit Report [facility] [address] [place] [address] OFFICE VISIT Date of Service: 04/10/24 MR#: [id number] Acct: [id number] Name: ANJUM SERRANO Rep #: [id number] : 1945 Provider: Kristen Oleary Age/Sex: 78/M Location: [facility] Status: Signed Intake Vital Signs 03/02/24 14:27 [...] Const Gener (more content not included)... Normal [facility] Thyroid Antibodieson 024 TG AB < 1.0 Normal 0.0-0.9 [facility] Comment on above: Result Comment: Thyr oglobulin Antibody measured by Lalitha Emely Methodology It should be noted that the presence of thyroglobulin antibodies may not be pathogenic nor diagnostic, especially at very low levels. The assay drug counselor has found that four percent of individuals without evidence of thyroid disease or autoimmunity will have positive TgAb levels up to 4 IU/mL. Performed at: [address] [id number] [place] Operator: Prince Ho PhD, Phone: [phone] Performed By: #### L 501.06243, L501.9520, L506.0400, L3300.6750 #### [facility] [address] [facility] [place], [address] THYR PEROX AB < 9 Normal 0-34 [facility] Comment on above: Performed By: #### L 501.58974, L501.9520, L506.0400, L3300.6750 #### [facility] [address] [place], [address] Free T3on 04-04-2024 Free T3 [Mass/Vol] 8.1 pg/mL High 2.18-3.98 [facility] Comment on above: Performed By: #### L 501.40945, L501.9520, L506.0400, L3300.6750 #### [facility] [address] [place] [place], [address] T4 Free Directon 04-04-2024 T4 FREE DIRECT 3.60 ng/dL High 0.76-1.46 [facility] Comment on above: Performed By: #### L 501.01883, L501.9520, L506.0400, L3300.6750 #### [facility] [address] [place], [address] Thyroid Stim Hormone (TSH)on 04-04-2024 TSH Qn m[IU]/L Low 0.358-3.740 [facility] Comment on above: Performed By: #### L 501.64243, L501.9520, L506.0400, L3300.6750 #### [facility] [address] [place], [address] CBC W/Diff, Automatedon 09-0 5-2023 Absolute Lymph 0.88 X10 3/uL Normal 0.83-4.51 [facility] Comment on above: Performed By: #### L 100.0100, L503.6550, L503.6030, L503.0105 ####[facility] [address] [place], [address] Absolute Neut 2.4 X10 3/uL Normal 2.0-7.7 [facility] Comment on above: Performed By: #### L 100.0100, L503.6550, L503.6030, L503.0105 ####[facility] [address] [place], [address] Basophils/100 WBC (Bld) 1.3 % High 0-1 [facility] Comment on above: Performed By: #### L 100.0100, L503.6550, L503.6030, L503.0105 ####[facility] [address] [place], [address] Eosinophils/100 WBC (Bld) 9.7 % High 0-5 [facility] Comment on above: Performed By: #### L 100.0100, L503.6550, L503.6030, L503.0105 ####[facility] [address] [place], [address] Erythrocyte distribution width (RBC) [Ratio] 16.2 % High 11.6-14.6 [facility] Comment on above: Performed By: #### L 100.0100, L503.6550, L503.6030, L503.0105 ####[facility] [address] [place], [address] Hematocrit (Bld) [Volume fraction] 34.0 % Low 40-54 [facility] Comment on above: Performed By: #### L 100.0100, L503.6550, L503.6030, L503.0105 ####[facility] [address] [place], [address] Hemoglobin (Bld) [Mass/Vol] 11.0 g/dL Low 13.0-16.5 [facility] Comment on above: Performed By: #### L 100.0100, L503.6550, L503.6030, L503.0105 ####[facility] [address] [place], [address] IG% 4.300 High 0.0-0.9 [facility] Comment on above: Result Comment: IG% - Immature Granulocytes (promyelocytes, myelocytes and metamyelocytes) > 1% indicates that a LEFT SHIFT is Present. Performed By: #### L 100.0100, L503.6550, L503.6030, L503.0105 ####[facility] [address] [place], [address] Lymphocytes/100 WBC (Bld) 19.8 % Normal 19-41 [facility] Comment on above: Performed By: #### L 100.0100, L503.6550, L503.6030, L503.0105 ####[facility] [address] [place], [address] MCH (RBC) [Entitic mass] 32.4 pg High 27.0-32.0 [facility] Comment on above: Performed By: #### L 100.0100, L503.6550, L503.6030, L503.0105 ####[facility] [address] [place], [address] MCHC (RBC) [Mass/Vol] 32.4 g/dL Normal 32-36 [facility] Comment on above: Performed By: #### L 100.0100, L503.6550, L503.6030, L503.0105 ####[facility] [address] [place], [address] MCV (RBC) [Entitic vol] 100.0 fL High 80-94 [facility] Comment on above: Performed By: #### L 100.0100, L503.6550, L503.6030, L503.0105 ####[facility] [address] [place], [address] Monocytes/100 WBC (Bld) 10.6 % High 0-10 [facility] Comment on above: Performed By: #### L 100.0100, L503.6550, L503.6030, L503.0105 ####[facility] [address] [place], [address] Neutrophils/100 WBC (Bld) 54.3 % Normal 47-70 [facility] Comment on above: Performed By: #### L 100.0100, L503.6550, L503.6030, L503.0105 ####[facility] [address] [place], [address] Nucleated RBC (Bld) [#/Vol] 0.4 10*3/uL Normal 0-5 [facility] Comment on above: Performed By: #### L 100.0100, L503.6550, L503.6030, L503.0105 ####[facility] [address] [place], [address] Platelet mean volume (Bld) [Entitic vol] 10.2 fL Normal 6.2-12.0 [facility] Comment on above: Performed By: #### L 100.0100, L503.6550, L503.6030, L503.0105 ####[facility] [address] [place], [address] Platelets (Bld) [#/Vol] 135 10*3/uL Low 150-450 [facility] Comment on above: Performed By: #### L 100.0100, L503.6550, L503.6030, L503.0105 ####[facility] [address] [place], [address] RBC (Bld) [#/Vol] 3.40 10*6/uL Low 4.6-6.2 [facility] Comment on above: Performed By: #### L 100.0100, L503.6550, L503.6030, L503.0105 ####[facility] [address] [place], [address] RDW SD 57.2 fl High 35.1-43.9 [facility] Comment on above: Performed By: #### L 100.0100, L503.6550, L503.6030, L503.0105 ####[facility] [address] [place], [address] WBC (Bld) [#/Vol] 4.5 10*3/uL Normal 4.4-11.0 [facility] Comment on above: Performed By: #### L 100.0100, L503.6550, L503.6030, L503.0105 ####[facility] [address] [place], [address] Ferritinon 03-02-2024 Ferritin [Mass/Vol] 28 ng/mL Normal 26-388 [facility] Comment on above: Performed By: #### L 100.0100, L503.6550, L503.6030, L503.0105 ####[facility] [address] [place], [address] Iron+Iron Binding Capacityon 03-02-2024 Iron [Mass/Vol] 93 ug/dL Normal 65-175 [facility] Comment on above: Performed By: #### L 100.0100, L503.6550, L503.6030, L503.0105 ####[facility] [address] [place], [address] IRON SATURATION 24.2 Normal 15.0-55.0 [facility] Comment on above: Performed By: #### L 100.0100, L503.6550, L503.6030, L503.0105 ####[facility] [address] [place], [address] TIBC 384 ug/dL Normal 250-450 [facility] Comment on above: Performed By: #### L 100.0100, L503.6550, L503.6030, L503.0105 ####[facility] [address] [place], [address] Oncology Visit Reporton Oncology Visit Report [facility] [address] [place] [address] OFFICE VISIT Date of Service: 03/02/24 1419 MR#: [id number] Acct: [id number] Name: ANJUM SERRANO Rep #: [id number] : 1945 From: Tamie Coleman MD Age/Sex: 78/M [place] [facility] Status: Signed HPI Subjective Date of Service [...] black discoloration of the stool since then. [facility] Medical History Iron deficiency anemia due to [...] 7.0 L (more content not included)... Normal [facility] Vitamin B12on 03-02-2024 Cobalamin (Vitamin B12) [Mass/Vol] 1092 pg/mL High 211-911 [facility] Comment on above: Performed By: #### L 100.0100, L503.6550, L503.6030, L503.0105 ####[facility] [address] [place], [address] Vitamin B12 measurementOrder ed By: Tamie Coleman on 03-02-2024 Cobalamin (Vitamin B12) [Mass/Vol] 1092 pg/mL High 211-911 [facility] Cardiology Visit Reporton Cardiology Visit Report [facility] [address] [place], [place] [address] OFFICE VISIT Date of Service: 02/10/24 MR#: [id number] Acct: [id number] Name: ANJUM SERRANO Rep #: [id number] : 1945 Provider: SHIRA ray Age/Sex: 78/M Location: [facility] Status: Signed HPI [facility] History of Present Illness Details: Anjum Serrano [...] 94 Intake Visit Reasons: 3 M FU Respite Provider Required: No Is patient in pain?: No [...] for dizzine (more content not included)... Normal [facility] Gastroenterology Visit Repor ton 02-10-2024 Gastroenterology Visit Report [facility] [address] [place] [address] OFFICE VISIT Date of Service: 02/10/24 MR#: [id number] Acct: [id number] Name: ANJUM SERRANO Rep #: [id number] [...] 8.15.24 pt reports that since returning from [place] 2 weeks ago he has been feeling [...] Appearance: average body habitus and well nourished HENOK Head: normal to inspection Ears: hearing grossly normal bilaterally Nose: external nose normal Face and sinus: normal facial exam Mouth: oral mucosae normal Throat: posterior oropharynx normal Eyes General: appearance normal, both eyes and all related structures Neck Neck: normal visual inspection Chest Chest palpation inspection: normal inspection of the chest and normal palpatio (more content not included)... Normal [facility] Pulmonary Visit Reporton Pulmonary Visit Report [facility] [place] [facility] [address] [place] [address] OFFICE VISIT Date of Service: 02/02/24 MR#: [id number] Acct: [id number] Name: ANJUM SERRANO Rep #: [id number] : 1945 Provider: SHIRA Madrigal Age/Sex: 78/M [place] [facility] Status: Signed Assessment and Plan Assessment and [...] 0RF Plan Details Follow Up: 4 Months ([facility]) HPI 3 M FU Chief Complaint: [...] did improve, however he did travel to [facility] and became symptomatic upon his return. He also reports wheezing. He denies any chest tightness, chest pain or palpitations. He denies any fever, chills or body aches. He reports excellent compliance with his PAP device. He does admit that he did not take it to [facility] on vacation, this explains the 1 week [...] Reasons: 3 M FU Chief Complaint: anemia Respite Provider Required: No DME Vendor: pap- Accompanied by: [...] tablet S (more content not included)... Normal [facility] CBC W/Diff, Automatedon 12-27 Anisocytosis Ql (Bld) 2+ Normal [facility] Comment on above: Performed By: #### L 503.4259, L100.0100, L503.6030 ####[facility] [address] [place], [address] Ferritinon 01-24-2024 Ferritin [Mass/Vol] 36 ng/mL Normal 26-388 [facility] Comment on above: Performed By: #### L 503.6550, L100.0100, L503.6030 ####[facility] [address] [place], [address] Iron+Iron Binding Capacityon 01-24-2024 Iron [Mass/Vol] 59 ug/dL Low 65-175 [facility] Comment on above: Performed By: #### L 503.6550, L100.0100, L503.6030 ####[facility] [address] [place], [address] IRON SATURATION 15.6 Normal 15.0-55.0 [facility] Comment on above: Performed By: #### L 503.6550, L100.0100, L503.6030 ####[facility] [address] [place], [address] TIBC 377 ug/dL Normal 250-450 [facility] Comment on above: Performed By: #### L 503.6550, L100.0100, L503.6030 ####[facility] [id number] [place], [address] Absolute lymphocyte countOrd ered By: Shawn Moroe on 11-06-2023 Lymphocytes Auto (Unsp spec) [#/Vol] 0.97 10*3/uL 0.83-4.51 [facility] Basophil percentageOrdered B y: Shawn Moore on 11-06-2023 Basophil percentage Not Reportable [facility] Hemoglobin (Bld) [Mass/Vol] 7.4 g/dL 13.0-16.5 [facility] Neutrophils (Bld) [#/Vol] 4.2 10*3/uL 2.0-7.7 [facility] WBC (Bld) [#/Vol] 6.1 10*3/uL 4.4-11.0 [facility] Blood band neutrophil count as percentage of total leukocytesOrdered By: Shawn Moore on 11-06-2023 Band form neutrophils/100 WBC (Bld) 2 % 0-5 [facility] Blood basophils/100 leukocyt esOrdered By: Lilly Navarrete on 11-06-2023 Basophils/100 WBC (Bld) 1 % 0-1 [facility] Blood eosinophils/100 leukoc ytesOrdered By: Shawn Moore on 11-06-2023 Eosinophils/100 WBC (Bld) 5 % 0-5 [facility] Blood lymphocytes/100 leukoc ytesOrdered By: Shawn Moore on 11-06-2023 Lymphocytes/100 WBC (Bld) 16 % 19-41 [facility] Blood metamyelocytes/100 ken kocytesOrdered By: Shawn Moore on 11-06-2023 Metamyelocytes/100 WBC (Bld) 2 % 0-1 [facility] Blood monocytes/100 leukocyt esOrdered By: Shawn Moore on 11-06-2023 Monocytes/100 WBC (Bld) 5 % 0-10 [facility] Blood platelet adequacy dete ction by light microscopyOrdered By: Shawn Moore on 11-06-2023 Platelets LM Ql (Bld) SLT DEC ADEQ [facility] Blood polychromasia detectio n by light microscopyOrdered By: Lilly Navarrete on 11-06-2023 Polychromasia LM Ql (Bld) 2+ [facility] Blood segmented neutrophils/ 100 leukocytesOrdered By: Shawn Moore on 11-06-2023 Segmented neutrophils/100 WBC (Bld) 66 % 47-70 [facility] Determination of erythrocyte mean corpuscular volume (MCV)Ordered By: Shawn Moore on 11-06-2023 MCV (RBC) [Entitic vol] 95.0 fL 80-94 [facility] Erythrocyte distribution wid th ratioOrdered By: Shawn Moore on 11-06-2023 Erythrocyte distribution width (RBC) [Ratio] 17.0 % 11.6-14.6 [facility] Erythrocyte distribution wid th standard deviationOrdered By: Shawn Moore on 11-06-2023 Erythrocyte distribution width (RBC) [Entitic vol] 58.3 fL 35.1-43.9 [facility] Hematocrit Auto (Bld) [Volum e fraction]Ordered By: Shawn Moore on 11-06-2023 Hematocrit (Bld) [Volume fraction] 24.5 % 40-54 [facility] Laboratory - Hematology and Cell countsOrdered By: Shawn Moore on 11-06-2023 MCH (RBC) [Entitic mass] 28.7 pg 27.0-32.0 [facility] MCHC (RBC) [Mass/Vol] 30.2 g/dL 32-36 [facility] Myelocytes/100 WBC (Bld) 4 % 0-0 [facility] Platelet mean volume (Bld) [Entitic vol] 10.4 fL 6.2-12.0 [facility] Platelets (Bld) [#/Vol] 138 10*3/uL 150-450 [facility] - Hematology and Cell countsOrdered By: Lilly Navarrete on 11-06-2023 Anisocytosis Ql (Bld) 2+ [facility] Ovalocyte detectionOrdered B y: Lilly Navarrete on 11-06-2023 Ovalocytes LM Ql (Bld) 2+ [facility] RBC Auto (Bld) [#/Vol]Ordere d By: Shawn Moore on 11-06-2023 RBC (Bld) [#/Vol] 2.58 10*6/uL 4.6-6.2 [facility] Red blood cell stomatocyte d etectionOrdered By: Lilly Navarrete on 11-06-2023 Stomatocytes LM Ql (Bld) RARE [facility] Review by pathologistOrdered By: Shawn Moore on 11-06-2023 Pathologist review Marcos (Unsp spec) [Interp] October [facility] Total cell countOrdered By: Shawn Moore on 11-06-2023 Cells counted Molgen (Bld/Tiss) [#] 100 MANUAL DIFF [facility] Absolute lymphocyte countOrd ered By: Roberto Hussein on 11-05-2023 Lymphocytes Auto (Unsp spec) [#/Vol] 1.27 10*3/uL 0.83-4.51 [facility] Activated partial thrombopla stin time (aPTT) in platelet poor plasma by coagulation aOrdered By: Gilberto Aquino on 11-05-2023 aPTT Coag (PPP) [Time] 26.8 s 24.1-36.2 [facility] Basophil percentageOrdered B y: Roberto Hussein on 11-05-2023 Basophil percentage Not Reportable [facility] Chloride [Moles/Vol] 111 mmol/L 98-107 [facility] Glucose [Mass/Vol] 112 mg/dL 74-106 [facility] Comment on above: Fasting Glucose resu lt from 100 to 125 mg/dL suggests IMPAIRED HOMEOSTASIS per A.D.A. criteria. Hemoglobin (Bld) [Mass/Vol] 7.6 g/dL 13.0-16.5 [facility] Neutrophils (Bld) [#/Vol] 4.7 10*3/uL 2.0-7.7 [facility] Potassium [Moles/Vol] 3.9 mmol/L 3.5-5.1 [facility] Sodium [Moles/Vol] 141 mmol/L 136-145 [facility] WBC (Bld) [#/Vol] 7.5 10*3/uL 4.4-11.0 [facility] Basophil percentageOrdered B y: Gilberto Aquino on 11-05-2023 Bilirubin [Mass/Vol] 0.90 mg/dL 0.20-1.00 [facility] Comment on above: For patients on eltr ombopag therapy, use of Dimension [place] TBIL is not recommended. Protein [Mass/Vol] 6.4 g/dL 6.4-8.2 [facility] Blood band neutrophil count as percentage of total leukocytesOrdered By: Roberto Hussein on 11-05-2023 Band form neutrophils/100 WBC (Bld) 3 % 0- [facility] Blood eosinophils/100 leukoc ytesOrdered By: Roberto Hussein on 11-05-2023 Eosinophils/100 WBC (Bld) 6 % 0-5 [facility] Blood lymphocytes/100 leukoc ytesOrdered By: Roberto Hussein on 11-05-2023 Lymphocytes/100 WBC (Bld) 17 % 19-41 [facility] Blood metamyelocytes/100 ken kocytesOrdered By: Roberto Hussein on 11-05-2023 Metamyelocytes/100 WBC (Bld) 2 % 0-1 [facility] Blood monocytes/100 leukocyt esOrdered By: Roberto Hussein on 11-05-2023 Monocytes/100 WBC (Bld) 9 % 0-10 [facility] Blood platelet adequacy dete ction by light microscopyOrdered By: Roberto Hussein on 11-05-2023 Platelets LM Ql (Bld) ADEQUATE ADEQ [facility] Blood segmented neutrophils/ 100 leukocytesOrdered By: Roberto Hussein on 11-05-2023 Segmented neutrophils/100 WBC (Bld) 59 % 47-70 [facility] Determination of erythrocyte mean corpuscular volume (MCV)Ordered By: Roberto Hussein on 11-05-2023 MCV (RBC) [Entitic vol] 94.4 fL 80-94 [facility] Direct bilirubinOrdered By: Gilberto Aquino on 11-05-2023 Bilirubin.direct [Mass/Vol] 0.25 mg/dL 0.00-0.30 [facility] Erythrocyte distribution wid th ratioOrdered By: Roberto Hussein on 11-05-2023 Erythrocyte distribution width (RBC) [Ratio] 17.7 % 11.6-14.6 [facility] Erythrocyte distribution wid th standard deviationOrdered By: Roberto Hussein on 11-05-2023 Erythrocyte distribution width (RBC) [Entitic vol] 59.3 fL 35.1-43.9 [facility] Hematocrit Auto (Bld) [Volum e fraction]Ordered By: Roberto Hussein on 11-05-2023 Hematocrit (Bld) [Volume fraction] 25.2 % 40-54 [facility] Laboratory - Chemistry and C hemistry - challengeOrdered By: Gilberto Aquino on 11-05-2023 ALP [Catalytic activity/Vol] 47 U/L 45-117 [facility] ALT [Catalytic activity/Vol] 19 U/L 16-61 [facility] Globulin (S) [Mass/Vol] 3.2 g/dL 2.2-4.2 [facility] - Chemistry and C hemistry - challengeOrdered By: Roberto Hussein on 11-05-2023 CO2 [Moles/Vol] 26.0 mmol/L 21.0-32.0 [facility] Urea nitrogen/Creatinine [Mass ratio] 12.7 mg/mg 10-20 [facility] Laboratory - CoagulationOrde red By: Gilberto Aquino on 05-10-2024 INR Coag (Bld) [Relative time] 1.2 {INR} [facility] PT Coag (PPP) [Time] 15.5 s 11.7-14.9 [facility] Laboratory - Hematology and Cell countsOrdered By: Roberto Hussein on 11-05-2023 Anisocytosis Ql (Bld) 1+ [facility] MCH (RBC) [Entitic mass] 28.5 pg 27.0-32.0 [facility] MCHC (RBC) [Mass/Vol] 30.2 g/dL 32-36 [facility] Comment on above: Delta: 28.6 on 11/03-1345 Myelocytes/100 WBC (Bld) 4 % 0-0 [facility] Platelet mean volume (Bld) [Entitic vol] 10.4 fL 6.2-12.0 [facility] Platelets (Bld) [#/Vol] 150 10*3/uL 150-450 [facility] No Panel InformationOrdered By: Roberto Hussein on 11-05-2023 Estimated Creatinine Clearance Calc 69.35 ml/min [facility] Estimated GFR (MDRD) Amer 83 mL/min >60 [facility] Comment on above: GFR Calc Estimated GFR (MDRD) Non-Af Amer 68 mL/min >60 [facility] Comment on above: Non- GFR Calc RBC Auto (Bld) [#/Vol]Ordere d By: Roberto Hussein on 11-05-2023 RBC (Bld) [#/Vol] 2.67 10*6/uL 4.6-6.2 [facility] RBC morphologyOrdered By: Negrita Hussein on 11-05-2023 RBC morphology finding Nom (Bld) N CHROM NORMAL NORM C&C [facility] Review by pathologistOrdered By: Roberto Hussein on 11-05-2023 Pathologist review Marcos (Unsp spec) [Interp] May foll [facility] Serum or plasma calcium aditya urement (mass/volume)Ordered By: Roberto Hussein on 11-05-2023 Calcium [Mass/Vol] 8.4 mg/dL 8.5-10.1 [facility] Serum or plasma creatinine m easurement (mass/volume)Ordered By: Roberto Hussein on 11-05-2023 Creatinine [Mass/Vol] 1.10 mg/dL 0.70-1.30 [facility] Comment on above: The validity of the calculated GFR & GFRAA in patients over 70 years has not been determined. Clinical correlation is essential. Serum or plasma urea nitroge n measurement (mass/volume)Ordered By: Roberto Hussein on 11-05-2023 Urea nitrogen [Mass/Vol] 14 mg/dL 7-18 [facility] Thin prep Papanicolaou smear with manual screeningOrdered By: Gilberto Aquino on 11-05-2023 Thin prep Papanicolaou smear with manual screening 3.2 g/dL 3.2-5.0 [facility] Thin prep Papanicolaou smear with manual screening 11 U/L 15-37 [facility] Thin prep Papanicolaou smear with manual screeningOrdered By: Roberto Hussein on 11-05-2023 Thin prep Papanicolaou smear with manual screening 4 5-15 [facility] Total cell countOrdered By: Roberto Hussein on 11-05-2023 Cells counted Molgen (Bld/Tiss) [#] 100 MANUAL DIFF [facility] Absolute lymphocyte countOrd ered By: Rhea Rao on 11-04-2023 Lymphocytes Auto (Unsp spec) [#/Vol] 1.00 10*3/uL 0.83-4.51 [facility] Comment on above: Previous reported re sult: 1.12 X10^3/uLEdited by: BETTE on 11/04/23:1406 Automated lymphocyte count a s percentage of total leukocytesOrdered By: Rhea Rao on 11-04-2023 Lymphocytes/100 WBC Auto (Unsp spec) APPLICATION SECURITY ARCHITECT [facility] Comment on above: Previous reported re sult: 12.9 %Edited by: BETTE on 11/04/23:1406 Basophil percentageOrdered B y: Rhea Rao on 11-04-2023 Basophil percentage APPLICATION SECURITY ARCHITECT [facility] Comment on above: Previous reported re sult: 60.8 %Edited by: BETTE on 11/04/23:1406 Previous reported re sult: 10.5 %Edited by: BETTE on 11/04/23:1406 Previous reported re sult: 7.8 %Edited by: BETTE on 11/04/23:1406 Previous reported re sult: 0.6 %Edited by: BETTE on 11/04/23:1406 Bilirubin [Mass/Vol] 0.50 mg/dL 0.20-1.00 [facility] Comment on above: For patients on eltr ombopag therapy, use of Dimension [place] TBIL is not recommended. Chloride [Moles/Vol] 109 mmol/L 98-107 [facility] Glucose [Mass/Vol] 165 mg/dL 74-106 [facility] Comment on above: Fasting Glucose resu lt greater than or equal to 126 mg/dL suggests DIABETES MELLITUS per A.D.A. criteria. Hemoglobin (Bld) [Mass/Vol] 5.5 g/dL 13.0-16.5 [facility] Comment on above: RESULTS CALLED TO GEOFF 11/04/23 1404 Denia Grace.REPORT READ BACK BY DANIS. Neutrophils (Bld) [#/Vol] 6.1 10*3/uL 2.0-7.7 [facility] Comment on above: Previous reported re sult: 5.3 X10^3/uLEdited by: BETTE on 11/04/23:140 Potassium [Moles/Vol] 4.3 mmol/L 3.5-5.1 [facility] Protein [Mass/Vol] 6.5 g/dL 6.4-8.2 [facility] Sodium [Moles/Vol] 140 mmol/L 136-145 [facility] WBC (Bld) [#/Vol] 8.7 10*3/uL 4.4-11.0 [facility] Blood band neutrophil count as percentage of total leukocytesOrdered By: Rhea Rao on 11-04-2023 Band form neutrophils/100 WBC (Bld) 2 % 0-5 [facility] Blood basophils/100 leukocyt esOrdered By: Rhea Rao on 11-04-2023 Basophils/100 WBC (Bld) 2 % 0-1 [facility] Blood eosinophils/100 leukoc ytesOrdered By: Rhea Rao on 11-04-2023 Eosinophils/100 WBC (Bld) 5 % 0-5 [facility] Blood lymphocytes/100 leukoc ytesOrdered By: Rhea Rao on 11-04-2023 Lymphocytes/100 WBC (Bld) 12 % 19-41 [facility] Blood metamyelocytes/100 ken kocytesOrdered By: Rhea Rao on 11-04-2023 Metamyelocytes/100 WBC (Bld) 3 % 0-1 [facility] Blood monocytes/100 leukocyt esOrdered By: Rhea Rao on 11-04-2023 Monocytes/100 WBC (Bld) 4 % 0-10 [facility] Blood platelet adequacy dete ction by light microscopyOrdered By: Rhea Rao on 11-04-2023 Platelets LM Ql (Bld) ADEQUATE ADEQ [facility] Blood promyelocytes/100 leuk ocytesOrdered By: Rhea Rao on 11-04-2023 Promyelocytes/100 WBC (Bld) 3 % 0-0 [facility] Blood segmented neutrophils/ 100 leukocytesOrdered By: Rhea Rao on 11-04-2023 Segmented neutrophils/100 WBC (Bld) 68 % 47-70 [facility] Determination of erythrocyte mean corpuscular volume (MCV)Ordered By: Rhea Rao on 11-04-2023 MCV (RBC) [Entitic vol] 99.0 fL 80-94 [facility] Erythrocyte distribution wid th ratioOrdered By: Rhea Rao on 11-04-2023 Erythrocyte distribution width (RBC) [Ratio] 17.2 % 11.6-14.6 [facility] Erythrocyte distribution wid th standard deviationOrdered By: Rhea Rao on 11-04-2023 Erythrocyte distribution width (RBC) [Entitic vol] 61.5 fL 35.1-43.9 [facility] Hematocrit Auto (Bld) [Volum e fraction]Ordered By: Rhea Rao on 11-04-2023 Hematocrit (Bld) [Volume fraction] 19.2 % 40-54 [facility] Immature granulocytes/100 WB C Auto (Bld)Ordered By: Rhea Rao on 11-04-2023 Immature granulocytes/100 WBC (Bld) APPLICATION SECURITY ARCHITECT [facility] Comment on above: Previous reported re sult: 7.400 %Edited by: BETTE on 11/04/23:1406IG% - Immature Granulocytes (promyelocytes, myelocytes and metamyelocytes) > 1% indicates that a LEFT SHIFT is Present. Laboratory - Chemistry and C hemistry - challengeOrdered By: Rhea Rao on 11-04-2023 Albumin/Globulin [Mass ratio] 1.0 {ratio} 0.9-2.4 [facility] ALP [Catalytic activity/Vol] 46 U/L 45-117 [facility] ALT [Catalytic activity/Vol] 21 U/L 16-61 [facility] CO2 [Moles/Vol] 26.0 mmol/L 21.0-32.0 [facility] Globulin (S) [Mass/Vol] 3.3 g/dL 2.2-4.2 [facility] Natriuretic peptide B (Bld) [Mass/Vol] 254.7 pg/mL 0-100 [facility] Urea nitrogen/Creatinine [Mass ratio] 18.8 mg/mg 10-20 [facility] Laboratory - Hematology and Cell countsOrdered By: Rhea Rao on 11-04-2023 MCH (RBC) [Entitic mass] 28.4 pg 27.0-32.0 [facility] MCHC (RBC) [Mass/Vol] 28.6 g/dL 32-36 [facility] Myelocytes/100 WBC (Bld) 1 % 0-0 [facility] Platelet mean volume (Bld) [Entitic vol] 10.9 fL 6.2-12.0 [facility] Platelets (Bld) [#/Vol] 160 10*3/uL 150-450 [facility] Lower GI hemoglobin IA Ql (S tl)Ordered By: Rhea Rao on 11-04-2023 Stool Occult Blood (FANNY) Positive [facility] No Panel InformationOrdered By: Rhea Rao on 11-04-2023 Estimated GFR (MDRD) Amer 77 mL/min >60 [facility] Comment on above: GFR Calc Estimated GFR (MDRD) Non-Af Amer 64 mL/min >60 [facility] Comment on above: Non- GFR Calc Nucleated Red Blood Cells % APPLICATION SECURITY ARCHITECT [facility] Comment on above: Previous reported re sult: 1.2 %Edited by: BETTE on 11/04/23:1406 Troponin I High Sensitivity 11 pg/mL 3.0-78.0 [facility] Comment on above: Please Note: New Laila t Units and Gender Specific Reference Ranges. For more information see Policy Stat Procedure [place] High Sensitivity Troponin (TNIH) and attachments. RBC Auto (Bld) [#/Vol]Ordere d By: Rhea Rao on 11-04-2023 RBC (Bld) [#/Vol] 1.94 10*6/uL 4.6-6.2 [facility] RBC morphologyOrdered By: Isa Rao on 11-04-2023 RBC morphology finding Nom (Bld) NORM C+C NORMAL NORM C&C [facility] Review by pathologistOrdered By: Rhea Rao on 11-04-2023 Pathologist review Marcos (Unsp spec) [Interp] October [facility] Serum or plasma calcium aditya urement (mass/volume)Ordered By: Rhea Rao on 11-04-2023 Calcium [Mass/Vol] 8.7 mg/dL 8.5-10.1 [facility] Serum or plasma creatinine m easurement (mass/volume)Ordered By: Rhea Rao on 11-04-2023 Creatinine [Mass/Vol] 1.17 mg/dL 0.70-1.30 [facility] Comment on above: The validity of the calculated GFR & GFRAA in patients over 70 years has not been determined. Clinical correlation is essential. Serum or plasma urea nitroge n measurement (mass/volume)Ordered By: Rhea Rao on 11-04-2023 Urea nitrogen [Mass/Vol] 22 mg/dL 7-18 [facility] Thin prep Papanicolaou smear with manual screeningOrdered By: Rhea Rao on 11-04-2023 Thin prep Papanicolaou smear with manual screening 3.2 g/dL 3.2-5.0 [facility] Thin prep Papanicolaou smear with manual screening 13 U/L 15-37 [facility] Thin prep Papanicolaou smear with manual screening 5 5-15 [facility] Total cell countOrdered By: Rhea Rao on 11-04-2023 Cells counted Molgen (Bld/Tiss) [#] 100 MANUAL DIFF [facility] Lower GI hemoglobin IA Ql (S tl)Ordered By: Rick Mccormack on 09-13-2023 Stool Occult Blood (FANNY) Positive [facility] Absolute lymphocyte countOrd ered By: Rick Torresonnell on 09-09-2023 Lymphocytes Auto (Unsp spec) [#/Vol] 1.33 10*3/uL 0.83-4.51 [facility] Comment on above: Previous reported re sult: 0.92 X10^3/uLEdited by: DOM on 09/09/23:1442 AMENDED REPORT 09/09/231441 Absolute Lymph previously reported as: 0.92 X10^3/uL Automated lymphocyte count a s percentage of total leukocytesOrdered By: Rick Mccormack on 09-09-2023 Lymphocytes/100 WBC Auto (Unsp spec) APPLICATION SECURITY ARCHITECT [facility] Comment on above: Previous reported re sult: 13.0 %Edited by: DOM on 09/09/23:1441 AMENDED REPORT 09/09/23 144 LY% previously reported as: 13.0 L % Basophil percentageOrdered B y: Rick Mccormack on 09-09-2023 Basophil percentage APPLICATION SECURITY ARCHITECT [facility] Comment on above: Previous reported re sult: 56.3 %Edited by: DOM on 09/09/23:1441 AMENDED REPORT 09/09/23 144 NEUT% previously reported as: 56.3 % Previous reported re sult: 10.4 %Edited by: DOM on 09/09/23:1441 AMENDED REPORT 09/09/23 1441 MONO% previously reported as: 10.4 H % Previous reported re sult: 13.6 %Edited by: DOM on 09/09/23:1442 AMENDED REPORT 09/09/23 144 EO% previously reported as: 13.6 H % Previous reported re sult: 0.7 %Edited by: DOM on 09/09/23:1442 AMENDED REPORT 09/09/23 144 BASO% previously reported as: 0.7 % Chloride [Moles/Vol] 108 mmol/L 98-107 [facility] Glucose [Mass/Vol] 143 mg/dL 74-106 [facility] Comment on above: Fasting Glucose resu lt greater than or equal to 126 mg/dL suggests DIABETES MELLITUS per A.D.A. criteria. Hemoglobin (Bld) [Mass/Vol] 9.8 g/dL 13.0-16.5 [facility] Neutrophils (Bld) [#/Vol] 4.5 10*3/uL 2.0-7.7 [facility] Comment on above: Previous reported re sult: 4.0 X10^3/uLEdited by: DOM on 09/09/23:1442 AMENDED REPORT 09/09/23 1442 Absolute Neut previously reported as: 4.0 X10^3/uL Potassium [Moles/Vol] 4.1 mmol/L 3.5-5.1 [facility] Sodium [Moles/Vol] 140 mmol/L 136-145 [facility] WBC (Bld) [#/Vol] 7.1 10*3/uL 4.4-11.0 [facility] Blood eosinophils/100 leukoc ytesOrdered By: Rick Mccormack on 09-09-2023 Eosinophils/100 WBC (Bld) 10 % 0-5 [facility] Blood lymphocytes/100 leukoc ytesOrdered By: Rick Mccormack on 09-09-2023 Lymphocytes/100 WBC (Bld) 19 % 19-41 [facility] Blood metamyelocytes/100 ken kocytesOrdered By: Rick Mccormack on 09-09-2023 Metamyelocytes/100 WBC (Bld) 2 % 0-1 [facility] Blood monocytes/100 leukocyt esOrdered By: Rick Mccormack on 09-09-2023 Monocytes/100 WBC (Bld) 4 % 0-10 [facility] Blood platelet adequacy dete ction by light microscopyOrdered By: Rick Mccormack on 09-09-2023 Platelets LM Ql (Bld) ADEQUATE ADEQ [facility] Blood segmented neutrophils/ 100 leukocytesOrdered By: Rick Mccormack on 09-09-2023 Segmented neutrophils/100 WBC (Bld) 64 % 47-70 [facility] Determination of erythrocyte mean corpuscular volume (MCV)Ordered By: Rick Mccormack on 09-09-2023 MCV (RBC) [Entitic vol] 99.4 fL 80-94 [facility] Erythrocyte distribution wid th ratioOrdered By: Rick Mccormack on 09-09-2023 Erythrocyte distribution width (RBC) [Ratio] 16.8 % 11.6-14.6 [facility] Erythrocyte distribution wid th standard deviationOrdered By: Rick Mccormack on 09-09-2023 Erythrocyte distribution width (RBC) [Entitic vol] 61.6 fL 35.1-43.9 [facility] Hematocrit Auto (Bld) [Volum e fraction]Ordered By: Rick Mccormack on 09-09-2023 Hematocrit (Bld) [Volume fraction] 31.6 % 40-54 [facility] Immature granulocytes/100 WB C Auto (Bld)Ordered By: Rick Mccormack on 09-09-2023 Immature granulocytes/100 WBC (Bld) APPLICATION SECURITY ARCHITECT [facility] Comment on above: Previous reported re sult: 6.000 %Edited by: DOM on 09/09/23:1442 AMENDED REPORT 09/09/23 1442 IM GRAN % previously reported as: 6.000 H % IG% - Immature Granulocytes (promyelocytes, myelocytes and metamyelocytes) > 1% indicates that a LEFT SHIFT is Present. Laboratory - Chemistry and C hemistry - challengeOrdered By: Rick Mccormack on 09-09-2023 CO2 [Moles/Vol] 26.0 mmol/L 21.0-32.0 [facility] Natriuretic peptide B (Bld) [Mass/Vol] 228.6 pg/mL 0-100 [facility] Urea nitrogen/Creatinine [Mass ratio] 14.3 mg/mg 10-20 [facility] Laboratory - Hematology and Cell countsOrdered By: Rick Mccormack on 09-09-2023 MCH (RBC) [Entitic mass] 30.8 pg 27.0-32.0 [facility] MCHC (RBC) [Mass/Vol] 31.0 g/dL 32-36 [facility] Myelocytes/100 WBC (Bld) 1 % 0-0 [facility] Nucleated RBC/100 WBC (Bld) [Ratio] 0.7 % 0-5 [facility] Platelet mean volume (Bld) [Entitic vol] 10.8 fL 6.2-12.0 [facility] Platelets (Bld) [#/Vol] 178 10*3/uL 150-450 [facility] No Panel InformationOrdered By: Rick Mccormack on 09-09-2023 Estimated GFR (MDRD) Amer 76 mL/min >60 [facility] Comment on above: GFR Calc Estimated GFR (MDRD) Non-Af Amer 63 mL/min >60 [facility] Comment on above: Non- GFR Calc RBC Auto (Bld) [#/Vol]Ordere d By: Rick Mccormack on 09-09-2023 RBC (Bld) [#/Vol] 3.18 10*6/uL 4.6-6.2 [facility] RBC morphologyOrdered By: Letty Mccormack on 09-09-2023 RBC morphology finding Nom (Bld) NORM C+C NORMAL NORM C&C [facility] Review by pathologistOrdered By: Rick Mccormack on 09-09-2023 Pathologist review Marcos (Unsp spec) [Interp] Reviewed [facility] Comment on above: Previous reported re sult: Tatum sullivan Edited by: RGOCHACE on 09/10/23:1607Macrocytic anemia.Clinical correlation necessary.Randell Blanchard M.D. 09/10/23 AMENDED REPORT 09/10/23 1607 PATH REV previously reported as: Tatum sullivan Serum or plasma calcium aditya urement (mass/volume)Ordered By: Rick Mccormack on 09-09-2023 Calcium [Mass/Vol] 8.7 mg/dL 8.5-10.1 [facility] Serum or plasma creatinine m easurement (mass/volume)Ordered By: Rick Mccormack on 09-09-2023 Creatinine [Mass/Vol] 1.19 mg/dL 0.70-1.30 [facility] Comment on above: The validity of the calculated GFR & GFRAA in patients over 70 years has not been determined. Clinical correlation is essential. Serum or plasma urea nitroge n measurement (mass/volume)Ordered By: Rick Mccormack on 09-09-2023 Urea nitrogen [Mass/Vol] 17 mg/dL 7-18 [facility] Thin prep Papanicolaou smear with manual screeningOrdered By: Rick Mccormack on 09-09-2023 Thin prep Papanicolaou smear with manual screening 6 5-15 [facility] Total cell countOrdered By: Rick Mccormack on 09-09-2023 Cells counted Molgen (Bld/Tiss) [#] 100 MANUAL DIFF [facility] Basophil percentageOrdered B y: Matthew Dodd on 02-02-2023 Chloride [Moles/Vol] 106 mmol/L 98-107 [facility] Glucose [Mass/Vol] 163 mg/dL 74-106 [facility] Comment on above: Fasting Glucose resu lt greater than or equal to 126 mg/dL suggests DIABETES MELLITUS per A.D.A. criteria. Potassium [Moles/Vol] 4.1 mmol/L 3.5-5.1 [facility] Sodium [Moles/Vol] 138 mmol/L 136-145 [facility] [facility] WBC (Bld) [#/Vol] 11.3 10*3/uL 4.4-11.0 [facility] Blood erythrocytes count (nu mber/volume)Ordered By: Matthew Dodd on 02-02-2023 RBC (Bld) [#/Vol] 4.41 10*6/uL 4.6-6.2 [facility] Blood hemoglobin measurement (mass/volume)Ordered By: Matthew Dodd on 02-02-2023 Hemoglobin (Bld) [Mass/Vol] 14.7 g/dL 13.0-16.5 [facility] Blood platelet mean volumeOr dered By: Matthew Dodd on 02-02-2023 Platelet mean volume (Bld) [Entitic vol] 10.7 fL 6.2-12.0 [facility] Determination of erythrocyte mean corpuscular volume (MCV)Ordered By: Matthew Dodd on 02-02-2023 MCV (RBC) [Entitic vol] 98.0 fL 80-94 [facility] Hematocrit Auto (Bld) [Volum e fraction]Ordered By: Matthew Dodd on 02-02-2023 Hematocrit (Bld) [Volume fraction] 43.2 % 40-54 [facility] Laboratory - Chemistry and C hemistry - challengeOrdered By: Matthew Dodd on 02-02-2023 CO2 [Moles/Vol] 27.0 mmol/L 21.0-32.0 [facility] Natriuretic peptide B (Bld) [Mass/Vol] 115.4 pg/mL 0-100 [facility] Urea nitrogen/Creatinine [Mass ratio] 13.9 mg/mg 10-20 [facility] - Hematology and Cell countsOrdered By: Matthew Dodd on 02-02-2023 Erythrocyte distribution width (RBC) [Entitic vol] 53.0 fL 35.1-43.9 [facility] Erythrocyte distribution width (RBC) [Ratio] 14.6 % 11.6-14.6 [facility] MCH (RBC) [Entitic mass] 33.3 pg 27.0-32.0 [facility] MCHC Auto (RBC) [Mass/Vol]Or dered By: Matthew Dodd on 02-02-2023 MCHC (RBC) [Mass/Vol] 34.0 g/dL 32-36 [facility] No Panel InformationOrdered By: Matthew Dodd on 02-02-2023 Estimated GFR (MDRD) Amer 85 mL/min >60 [facility] Comment on above: GFR Calc Estimated GFR (MDRD) Non-Af Amer 70 mL/min >60 [facility] Comment on above: Non- GFR Calc Platelets bldOrdered By: Kobe Dodd on 02-02-2023 Platelets (Bld) [#/Vol] 224 10*3/uL 150-450 [facility] Serum or plasma calcium aditya urement (mass/volume)Ordered By: Matthew Dodd on 02-02-2023 Calcium [Mass/Vol] 8.9 mg/dL 8.5-10.1 [facility] Serum or plasma creatinine m easurement (mass/volume)Ordered By: Matthew Dodd on 02-02-2023 Creatinine [Mass/Vol] 1.08 mg/dL 0.70-1.30 [facility] Comment on above: The validity of the calculated GFR & GFRAA in patients over 70 years has not been determined. Clinical correlation is essential. Serum or plasma urea nitroge n measurement (mass/volume)Ordered By: Matthew Dodd on 02-02-2023 Urea nitrogen [Mass/Vol] 15 mg/dL 7-18 [facility] Thin prep Papanicolaou smear with manual screeningOrdered By: Matthew Ju on 02-02-2023 Thin prep Papanicolaou smear with manual screening 5 5-15 [facility] Basophil percentageon 2021 Chloride [Moles/Vol] 107 mmol/L 98-107 [facility] Work Phone: Glucose [Mass/Vol] 198 mg/dL 74-106 [facility] Work Phone: Comment on above: Fasting Glucose resu lt greater than or equal to 126 mg/dL suggests DIABETES MELLITUS per A.D.A. criteria. Potassium [Moles/Vol] 4.2 mmol/L 3.5-5.1 [facility] Work Phone: Sodium [Moles/Vol] 145 mmol/L 136-145 [facility] Work Phone: Laboratory - Chemistry and C hemistry - challengeon 04-27-2022 CO2 [Moles/Vol] 30.0 mmol/L 21.0-32.0 [facility] Work Phone: Urea nitrogen/Creatinine [Mass ratio] 13.1 mg/mg 10-20 [facility] Work Phone: No Panel Informationon 04-27 Estimated GFR (MDRD) Amer 74 mL/min >60 [facility] Work Phone: Comment on above: GFR Calc Estimated GFR (MDRD) Non-Af Amer 61 mL/min >60 [facility] Work Phone: Comment on above: Non- GFR Calc Serum or plasma calcium aditya urement (mass/volume)on 04-27-2022 Calcium [Mass/Vol] 9.2 mg/dL 8.5-10.1 [facility] Work Phone: Serum or plasma creatinine m easurement (mass/volume)on 04-27-2022 Creatinine [Mass/Vol] 1.22 mg/dL 0.70-1.30 [facility] Work Phone: Comment on above: The validity of the calculated GFR & GFRAA in patients over 70 years has not been determined. Clinical correlation is essential. Serum or plasma urea nitroge n measurement (mass/volume)on 04-27-2022 Urea nitrogen [Mass/Vol] 16 mg/dL 7-18 [facility] Work Phone: Thin prep Papanicolaou smear with manual screeningon 04-27-2022 Thin prep Papanicolaou smear with manual screening 8 5-15 [facility] Work Phone: Basophil percentageon 2021 Chloride [Moles/Vol] 110 mmol/L 98-107 [facility] Work Phone: Glucose [Mass/Vol] 98 mg/dL 74-106 [facility] Work Phone: Potassium [Moles/Vol] 4.3 mmol/L 3.5-5.1 [facility] Work Phone: Sodium [Moles/Vol] 142 mmol/L 136-145 [facility] Work Phone: Laboratory - Chemistry and C hemistry - challengeon 01-30-2022 CO2 [Moles/Vol] 28.0 mmol/L 21.0-32.0 [facility] Work Phone: Urea nitrogen/Creatinine [Mass ratio] 15.2 mg/mg 10-20 [facility] Work Phone: No Panel Informationon 01-30 Estimated Creatinine Clearance Calc 65.53 ml/min [facility] Work Phone: Estimated GFR (MDRD) Amer 88 mL/min >60 [facility] Work Phone: Comment on above: GFR Calc Estimated GFR (MDRD) Non-Af Amer 73 mL/min >60 [facility] Work Phone: Comment on above: Non- GFR Calc Serum or plasma calcium aditya urement (mass/volume)on 01-30-2022 Calcium [Mass/Vol] 9.0 mg/dL 8.5-10.1 [facility] Work Phone: Serum or plasma creatinine m easurement (mass/volume)on 01-30-2022 Creatinine [Mass/Vol] 1.05 mg/dL 0.70-1.30 [facility] Work Phone: Comment on above: The validity of the calculated GFR & GFRAA in patients over 70 years has not been determined. Clinical correlation is essential. Serum or plasma urea nitroge n measurement (mass/volume)on 01-30-2022 Urea nitrogen [Mass/Vol] 16 mg/dL 7-18 [facility] Work Phone: Thin prep Papanicolaou smear with manual screeningon 01-30-2022 Thin prep Papanicolaou smear with manual screening 4 5-15 [facility] Work Phone: Absolute lymphocyte counton 10-31-2021 Lymphocytes Auto (Unsp spec) [#/Vol] 1.47 10*3/uL 0.83-4.51 [facility] Work Phone: Basophil percentageon 2021 Basophils/100 WBC (Bld) 1.1 % 0-1 [facility] Work Phone: Chloride [Moles/Vol] 109 mmol/L 98-107 [facility] Work Phone: Eosinophils/100 WBC (Bld) 6.6 % 0-5 [facility] Work Phone: Glucose [Mass/Vol] 119 mg/dL 74-106 [facility] Work Phone: Comment on above: Fasting Glucose resu lt from 100 to 125 mg/dL suggests IMPAIRED HOMEOSTASIS per A.D.A. criteria. Neutrophils (Bld) [#/Vol] 3.8 10*3/uL 2.0-7.7 [facility] Work Phone: Neutrophils/100 WBC (Bld) 57.7 % 47-70 [facility] Work Phone: Potassium [Moles/Vol] 4.1 mmol/L 3.5-5.1 [facility] Work Phone: Sodium [Moles/Vol] 141 mmol/L 136-145 [facility] Work Phone: WBC (Bld) [#/Vol] 6.7 10*3/uL 4.4-11.0 [facility] Work Phone: Blood erythrocytes count (nu mber/volume)on 10-31-2021 RBC (Bld) [#/Vol] 4.08 10*6/uL 4.6-6.2 [facility] Work Phone: Blood hemoglobin measurement (mass/volume)on 10-31-2021 Hemoglobin (Bld) [Mass/Vol] 13.0 g/dL 13.0-16.5 [facility] Work Phone: Blood lymphocytes/100 leukoc yteson 10-31-2021 Lymphocytes/100 WBC (Bld) 22.1 % 19-41 [facility] Work Phone: Blood monocytes/100 leukocyt eson 10-31-2021 Monocytes/100 WBC (Bld) 8.7 % 0-10 [facility] Work Phone: Blood platelet mean volumeon 10-31-2021 Platelet mean volume (Bld) [Entitic vol] 10.8 fL 6.2-12.0 [facility] Work Phone: Determination of erythrocyte mean corpuscular volume (MCV)on 10-31-2021 MCV (RBC) [Entitic vol] 97.5 fL 80-94 [facility] Work Phone: Hematocrit Auto (Bld) [Volum e fraction]on 10-31-2021 Hematocrit (Bld) [Volume fraction] 39.8 % 40-54 [facility] Work Phone: Laboratory - Chemistry and C hemistry - challengeon 10-31-2021 CO2 [Moles/Vol] 29.0 mmol/L 21.0-32.0 [facility] Work Phone: Free T4 [Mass/Vol] 1.01 ng/dL 0.76-1.46 [facility] Work Phone: Urea nitrogen/Creatinine [Mass ratio] 14.5 mg/mg 10-20 [facility] Work Phone: Laboratory - Hematology and Cell countson 10-31-2021 Erythrocyte distribution width (RBC) [Entitic vol] 52.8 fL 35.1-43.9 [facility] Work Phone: Erythrocyte distribution width (RBC) [Ratio] 14.7 % 11.6-14.6 [facility] Work Phone: Immature granulocytes/100 WBC (Bld) 3.800 % 0.0-0.9 [facility] Work Phone: Comment on above: IG% - Immature Granu locytes (promyelocytes, myelocytes and metamyelocytes) > 1% indicates that a LEFT SHIFT is Present. MCH (RBC) [Entitic mass] 31.9 pg 27.0-32.0 [facility] Work Phone: Nucleated RBC/100 WBC (Bld) [Ratio] 0 % 0-5 [facility] Work Phone: MCHC Auto (RBC) [Mass/Vol]on 10-31-2021 MCHC (RBC) [Mass/Vol] 32.7 g/dL 32-36 [facility] Work Phone: No Panel Informationon 10-31 Estimated GFR (MDRD) Amer 78 mL/min >60 [facility] Work Phone: Comment on above: GFR Calc Estimated GFR (MDRD) Non-Af Amer 64 mL/min >60 [facility] Work Phone: Comment on above: Non- GFR Calc Thyroid Stimulating Hormone (TSH) 1.68 uIU/mL 0.358-3.74 [facility] Work Phone: Platelets bldon 10-31-2021 Platelets (Bld) [#/Vol] 161 10*3/uL 150-450 [facility] Work Phone: Serum or plasma calcium aditya urement (mass/volume)on 10-31-2021 Calcium [Mass/Vol] 8.7 mg/dL 8.5-10.1 [facility] Work Phone: Serum or plasma creatinine m easurement (mass/volume)on 10-31-2021 Creatinine [Mass/Vol] 1.17 mg/dL 0.70-1.30 [facility] Work Phone: Comment on above: The validity of the calculated GFR & GFRAA in patients over 70 years has not been determined. Clinical correlation is essential. Serum or plasma urea nitroge n measurement (mass/volume)on 10-31-2021 Urea nitrogen [Mass/Vol] 17 mg/dL 7-18 [facility] Work Phone: Thin prep Papanicolaou smear with manual screeningon 10-31-2021 Thin prep Papanicolaou smear with manual screening 3 5-15 [facility] Work Phone: HEPATIC FUNCTION PANELon Albumin [Mass/Vol] 4.3 g/dL Normal 3.4 - 5.0 [facility] Comment on above: Performed By: #### H EPFP #### [address] [address] ALP [Catalytic activity/Vol] 52 U/L Normal 33 - 136 [facility] Comment on above: Performed By: #### H EPFP #### [address] [address] ALT [Catalytic activity/Vol] 22 U/L Normal 10 - 52 [facility] Comment on above: Result Comment: Shantell ents treated with Sulfasalazine may generate falsely decreased results for ALT. Performed By: #### H EPFP #### [address] [address] AST [Catalytic activity/Vol] 15 U/L Normal 9 - 39 [facility] Comment on above: Performed By: #### H EPFP #### [address] [address] Bilirubin [Mass/Vol] 0.7 mg/dL Normal 0.0 - 1.2 [facility] Comment on above: Performed By: #### H EPFP #### [address] [address] Bilirubin.direct [Mass/Vol] 0.1 mg/dL Normal 0.0 - 0.3 [facility] Comment on above: Performed By: #### H EPFP #### [address] [address] Protein [Mass/Vol] 6.4 g/dL Normal 6.4 - 8.2 [facility] Comment on above: Performed By: #### H EPFP #### [address] [address] CBC AND DIFFERENTIALon 02-28 Basophils (Bld) [#/Vol] 0.00 10*3/uL Normal 0.00 - 0.10 [facility] Comment on above: Performed By: #### C BCDF #### [address] [address] Basophils/100 WBC (Bld) 0.5 % Normal 0.0 - 2.0 [facility] Comment on above: Performed By: #### C BCDF #### [address] [address] Eosinophils (Bld) [#/Vol] 0.60 10*3/uL High 0.00 - 0.40 [facility] Comment on above: Performed By: #### C BCDF #### [address] [address] Eosinophils/100 WBC (Bld) 10.1 % Normal 0.0 - 6.0 [facility] Comment on above: Performed By: #### C BCDF #### [address] [address] Erythrocyte distribution width (RBC) [Ratio] 15.4 % High 11.5 - 14.5 [facility] Comment on above: Performed By: #### C BCDF #### [address] [address] Hematocrit (Bld) [Volume fraction] 48.7 % Normal 41.0 - 52.0 [facility] Comment on above: Performed By: #### C BCDF #### [address] [address] Hemoglobin (Bld) [Mass/Vol] 16.3 g/dL Normal 13.5 - 17.5 [facility] Comment on above: Performed By: #### C BCDF #### [address] [address] Lymphocytes (Bld) [#/Vol] 1.30 10*3/uL Normal 0.80 - 3.00 [facility] Comment on above: Performed By: #### C BCDF #### [address] [address] Lymphocytes/100 WBC (Bld) 21.9 % Normal 13.0 - 44.0 [facility] Comment on above: Performed By: #### C BCDF #### [address] [address] MCHC (RBC) [Mass/Vol] 33.5 g/dL Normal 32.0 - 36.0 [facility] Comment on above: Performed By: #### C BCDF #### [address] [address] MCV (RBC) [Entitic vol] 99 fL Normal 80 - 100 [facility] Comment on above: Performed By: #### C BCDF #### [address] [address] Monocytes (Bld) [#/Vol] 0.50 10*3/uL Normal 0.05 - 0.80 [facility] Comment on above: Performed By: #### C BCDF #### [address] [address] Monocytes/100 WBC (Bld) 8.0 % Normal 2.0 - 10.0 [facility] Comment on above: Performed By: #### C BCDF #### [address] [address] Neutrophils (Bld) [#/Vol] 3.60 10*3/uL Normal 1.60 - 5.50 [facility] Comment on above: Result Comment: Perc ent differential counts (%) should be interpreted in the context of the absolute cell counts (cells/L). Performed By: #### C BCDF #### [address] [address] Neutrophils/100 WBC (Bld) 59.5 % Normal 40.0 - 80.0 [facility] Comment on above: Performed By: #### C BCDF #### [address] [address] Nucleated RBC/100 WBC (Bld) [Ratio] 0.1 /100 WBC Normal [facility] Comment on above: Performed By: #### C BCDF #### [address] [address] Platelets (Bld) [#/Vol] 157 10*3/uL Normal 150 - 450 [facility] Comment on above: Performed By: #### C BCDF #### [address] [address] RBC (Bld) [#/Vol] 4.93 x10E12/L Normal 4.50 - 5.90 [facility] Comment on above: Performed By: #### C BCDF #### [address] [address] WBC (Bld) [#/Vol] 6.0 10*3/uL Normal 4.4 - 11.3 [facility] Comment on above: Performed By: #### C BCDF #### [address] [address] COMPREHENSIVE PANELon 2019 Albumin [Mass/Vol] 4.4 g/dL Normal 3.4 - 5.0 [facility] Comment on above: Performed By: #### C MP #### [address] [address] ALP [Catalytic activity/Vol] 51 U/L Normal 33 - 136 [facility] Comment on above: Performed By: #### C MP #### [address] [address] ALT [Catalytic activity/Vol] 21 U/L Normal 10 - 52 [facility] Comment on above: Result Comment: Shantell ents treated with Sulfasalazine may generate falsely decreased results for ALT. Performed By: #### C MP #### [place] [id number] Anion gap [Moles/Vol] 10 mmol/L Normal 10 - 20 [facility] Comment on above: Performed By: #### C MP #### [place] [id number] AST [Catalytic activity/Vol] 18 U/L Normal 9 - 39 [facility] Comment on above: Performed By: #### C MP #### [place] [id number] Bilirubin [Mass/Vol] 0.7 mg/dL Normal 0.0 - 1.2 [facility] Comment on above: Performed By: #### C MP #### [place] [address] Calcium [Mass/Vol] 9.3 mg/dL Normal 8.6 - 10.3 [facility] Comment on above: Performed By: #### C MP #### [place] [id number] Chloride [Moles/Vol] 109 mmol/L High 98 - 107 [facility] Comment on above: Performed By: #### C MP #### [place] [id number] Creatinine [Mass/Vol] 0.92 mg/dL Normal 0.50 - 1.30 [facility] Comment on above: Performed By: #### C MP #### [place] [id number] GFR- AM. >60 Normal >60 [facility] Comment on above: Result Comment: CALC ULATIONS OF ESTIMATED GFR ARE PERFORMED USING THE MDRD STUDY EQUATION FOR THE IDMS-TRACEABLE CREATININE METHODS. CLIN CHEM 2007;53:766-72 Performed By: #### C MP #### [place] [id number] GFR-NON AM. >60 Normal >60 [facility] Comment on above: Performed By: #### C MP #### [address] [address] Glucose [Mass/Vol] 118 mg/dL High 74 - 99 [facility] Comment on above: Performed By: #### C MP #### [address] [address] HCO3 (Bld) [Moles/Vol] 28 mmol/L Normal 21 - 32 [facility] Comment on above: Performed By: #### C MP #### [address] [address] Potassium [Moles/Vol] 4.1 mmol/L Normal 3.5 - 5.3 [facility] Comment on above: Performed By: #### C MP #### [address] [address] Protein [Mass/Vol] 6.5 g/dL Normal 6.4 - 8.2 [facility] Comment on above: Performed By: #### C MP #### [address] [address] Sodium [Moles/Vol] 143 mmol/L Normal 136 - 145 [facility] Comment on above: Performed By: #### C MP #### [address] [address] Urea nitrogen [Mass/Vol] 14 mg/dL Normal 6 - 23 [facility] Comment on above: Performed By: #### C MP #### [address] [address] HEMOGLOBIN A1Con 02-29-2020 HbA1c (Bld) [Mass fraction] 128 MG/DL Normal [facility] Comment on above: Performed By: #### H BA1E #### [address] [address] HbA1c (Bld) [Mass fraction] 6.1 % Normal [facility] Comment on above: Result Comment: Diag nosis of Diabetes-Adults Non-Diabetic: < or = 5.6% Increased risk for developing diabetes: 5.7-6.4% Diagnostic of diabetes: > or = 6.5% . Monitoring of Diabetes Age (y) Therapeutic Goal (%) Adults: >18 <7.0 Pediatrics: 13-18 <7.5 7-12 <8.0 0- 6 7.5-8.5 [employer]. Diabetes Care 33(S1), Jun 2009. Performed By: #### H BA1E #### [address] [address] LIPID PANEL (CORONARY RISK 2 )on 02-29-2020 Cholesterol [Mass/Vol] 169 mg/dL Normal 0 - 199 [facility] Comment on above: Result Comment: . [...] dosing. Performed By: #### L IPID #### [address] [address] Cholesterol in HDL [Mass/Vol] 44.0 mg/dL Normal [facility] Comment on above: Result Comment: . AGE VERY LOW LOW NORMAL HIGH 0-19 Y < 35 < 40 40-45 ---- 20-24 Y ---- < 40 >45 ---- >24 Y ---- < 40 40-60 >60 . Performed By: #### L IPID #### [address] [address] Cholesterol in LDL [Mass/Vol] 103 mg/dL High 0 - 99 [facility] Comment on above: Result Comment: . NEAR BORD AGE DESIRABLE OPTIMAL HIGH HIGH VERY HIGH 0-19 Y 0 - 109 --- 110-129 >/= 130 ---- 20-24 Y 0 - 119 --- 120-159 >/= 160 ---- >24 Y 0 - 99 100-129 130-159 160-189 >/=190 . Performed By: #### L IPID #### [place] [id number] Cholesterol in VLDL [Mass/Vol] 22 mg/dL Normal 0 - 40 [facility] Comment on above: Performed By: #### L IPID #### [place] [id number] Cholesterol.total/Chol esterol in HDL [Mass ratio] 3.8 {ratio} Normal [facility] Comment on above: Result Comment: REF VALUES DESIRABLE < 3.4 HIGH RISK > 5.0 Performed By: #### L IPID #### [place] [id number] Triglyceride [Mass/Vol] 110 mg/dL Normal 0 - 149 [facility] Comment on above: Result Comment: . [...] dosing. Performed By: #### L IPID #### [place] [address] .Manual Abson 02-24-2019 Segs Abs Man 4.69 10x3/ Normal 1.4-6.5 [facility] Comment on above: Order Comment: Order Added by Discern Expert. Performed By: #### 3 [id number] #### CY Adhikari [address] [place], [place] [id number] Basophil Abs Man 0.0 10x3/ Normal 0.0-0.2 [facility] Comment on above: Order Comment: Order Added by Discern Expert. Performed By: #### 3 [id number] #### CY Adhikari [facility] [place] [address] Eos Abs Man 0.3 10x3/ Normal 0.0-0.5 [facility] Comment on above: Order Comment: Order Added by Discern Expert. Performed By: #### 3 [id number] #### CY DiazHemo [address] [place] [address] Lymph Abs Man 1.3 10x3/ Normal 1.2-3.4 [facility] Comment on above: Order Comment: Order Added by Discern Expert. Performed By: #### 3 [id number] #### CY DiazHemo [address] [place] [address] [place] Abs Man 0.3 10x3/ Normal 0.0-0.7 [facility] Comment on above: Order Comment: Order Added by Discern Expert. Performed By: #### 3 [id number] #### CY DiazHemo [address] [place] [address] CBC w/ Auto Diffon 9 Erythrocyte distribution width (RBC) [Ratio] 14.7 % High 11.5-14.5 [facility] Comment on above: Performed By: #### 2 [id number] #### CY DiazHemo [facility] [place] [address] Hematocrit (Bld) [Volume fraction] 48.5 % Normal 42.0-52.0 [facility] Comment on above: Performed By: #### 2 [id number] #### YCElder DiazHemo [address] [place] [address] Hemoglobin (Bld) [Mass/Vol] 16.4 g/dL Normal 13.5-18.0 [facility] Comment on above: Performed By: #### 2 [id number] #### CY DiazHemo [address] [place] [address] MCH (RBC) [Entitic mass] 32.8 pg High 27.0-31.0 [facility] Comment on above: Performed By: #### 2 [id number] #### CY DiazHemo [address] [place] [address] MCHC (RBC) [Mass/Vol] 33.8 g/dL Normal 33.0-37.0 [facility] Comment on above: Performed By: #### 2 [id number] #### CY RemHemo [address] [place] [address] MCV (RBC) [Entitic vol] 97.2 fL Normal 78.0-100.0 [facility] Comment on above: Performed By: #### 2 [id number] #### CY RemHemo [address] [place] [address] Platelet mean volume (Bld) [Entitic vol] 10.0 fL Normal 7.4-11.0 [facility] Comment on above: Performed By: #### 2 [id number] #### YC RemHemo [address] [place] [address] Platelets (Bld) [#/Vol] 157 E3/mcL Normal 130-400 [facility] Comment on above: Performed By: #### 2 [id number] #### CY RemHemo [facility] [place] [address] RBC (Bld) [#/Vol] 4.99 E6/mcL Normal 3.90-6.10 [facility] Comment on above: Performed By: #### 2 [id number] #### CY RemHemo [facility] [place] [address] WBC (Bld) [#/Vol] 6.7 E3/mcL Normal 3.6-11.0 [facility] Comment on above: Performed By: #### 2 [id number] #### CY RemHemo [address] [place] [address] CMPon 02-24-2019 Albumin [Mass/Vol] 4.2 g/dL Normal 3.4-5.0 [facility] Comment on above: Performed By: #### 2 [id number] #### CY [employer] [facility] [place] [address] Albumin/Globulin [Mass ratio] 2.1 {ratio} High 1.1-1.9 [facility] Comment on above: Performed By: #### 2 [id number] #### CY [employer] [facility] [place] [address] Alk Phos 48 Int._Unit/L Normal 33-136 [facility] Comment on above: Performed By: #### 2 [id number] #### CY [employer] [address] [place] [address] ALT [Catalytic activity/Vol] 22 Int._Unit/L Normal 10-52 [facility] Comment on above: Performed By: #### 2 [id number] #### CY [employer] [address] [place] [address] Anion gap [Moles/Vol] 10 mmol/L Normal 10-20 [facility] Comment on above: Performed By: #### 2 [id number] #### CY [employer] [address] [place] [address] AST [Catalytic activity/Vol] 18 Int._Unit/L Normal 9-39 [facility] Comment on above: Performed By: #### 2 [id number] #### CY [employer] [address] [place] [address] Bili Total 0.82 mg/dL Normal 0.00-1.20 [facility] Comment on above: Performed By: #### 2 [id number] #### CY [employer] [address] [place] [address] Calcium [Mass/Vol] 9.1 mg/dL Normal 8.6-10.3 [facility] Comment on above: Performed By: #### 2 [id number] #### CY [employer] [address] [place] [address] Chloride [Moles/Vol] 110 mmol/L High 98-107 [facility] Comment on above: Performed By: #### 2 [id number] #### CY [employer] [address] [place] [address] CO2 [Moles/Vol] 25.0 mmol/L Normal 21.0-32.0 [facility] Comment on above: Performed By: #### 2 [id number] #### [employer] [address] [place] [address] Creatinine [Mass/Vol] 0.8 mg/dL Normal 0.5-1.3 [facility] Comment on above: Performed By: #### 2 [id number] #### CY [employer] [address] [place] [address] Globulin (S) [Mass/Vol] 2.0 g/dL Normal 2.0-4.0 [facility] Comment on above: Performed By: #### 2 [id number] #### [employer] [address] [place] [address] Glucose [Mass/Vol] 122 mg/dL High 70-99 [facility] Comment on above: Performed By: #### 2 [id number] #### [place] [employer] [address] [place] [address] 38547 Potassium [Moles/Vol] 3.8 mmol/L Normal 3.5-5.3 [facility] Comment on above: Performed By: #### 2 [id number] #### [place] [employer] [address] [place] [address] 81004 Protein [Mass/Vol] 6.2 g/dL Low 6.4-8.2 [facility] Comment on above: Performed By: #### 2 [id number] #### [place] [employer] [address] [place] [address] 65804 Sodium [Moles/Vol] 141 mmol/L Normal 136-145 [facility] Comment on above: Performed By: #### 2 [id number] #### [place] [employer] [address] [place] [address] 15807 Urea nitrogen [Mass/Vol] 14 mg/dL Normal 6-23 [facility] Comment on above: Performed By: #### 2 [id number] #### [place] [employer] [address] [place] [address] 98024 Urea nitrogen/Creatinine [Mass ratio] 17.5 ratio Normal 5.4-30.0 [facility] Comment on above: Performed By: #### 2 815014 #### [place] [employer] [address] [place] [address] 90918 Lipid Profileon 02-24-2019 Cholesterol [Mass/Vol] 159 mg/dL Normal 0-199 [facility] Comment on above: Result Comment: TOTA L CHOLEESTEROL: <200 NORMAL 200 - 239 BORDERLINE HIGH >240 HIGH Performed By: #### 3 [id number] #### [place] [employer] [address] [place] [address] 16850 Cholesterol in HDL [Mass/Vol] 52 mg/dL Normal 40-60 [facility] Comment on above: Performed By: #### 3 [id number] #### [place] [employer] [address] [place] [address] Cholesterol in LDL [Mass/Vol] 76 mg/dL Normal 0-130 [facility] Comment on above: Result Comment: <100 OPTIMAL 100-129 NEAR / ABOVE OPTIMAL 130-159 BORDERLINE HIGH 160-189 HIGH >190 VERY HIGH CALC LDL NOT VALID WHEN TRIGLYCERIDE IS >400 MG/DL Performed By: #### 3 [id number] #### [place] [employer] [facility] [place] [address] Cholesterol in VLDL [Mass/Vol] 31 mg/dL Normal 0-40 [facility] Comment on above: Performed By: #### 3 [id number] #### [employer] [facility] [place] [address] Triglyceride [Mass/Vol] 156 mg/dL High 0-149 [facility] Comment on above: [...] 200 - 499 Performed By: #### 3 [id number] #### [place] [employer] [address] [place] [address] 67337 Manual Diffon 02-24-2019 Basophil Man 0 % Normal 0-1 [facility] Comment on above: Order Comment: Order Added by Discern Expert. Performed By: #### 2 709814 #### CY [employer] [address] [place] [address] Eosinophils/100 WBC (Bld) 5 % Normal 0-5 [facility] Comment on above: Order Comment: Order Added by Discern Expert. Performed By: #### 2 770540 #### CY [employer] [address] [place] [address] Lymphocytes/100 WBC (Bld) 20 % Normal 14-48 [facility] Comment on above: Order Comment: Order Added by Discern Expert. Performed By: #### 2 007522 #### CY [employer] [address] [place] [address] Monocyte Man 5 % Normal 1-11 [facility] Comment on above: Order Comment: Order Added by Discern Expert. Performed By: #### 2 673805 #### CY [employer] [address] [place] 1468805 RBC morphology finding Nom (Bld) NORMAL Normal [facility] Comment on above: Order Comment: Order Added by Discern Expert. Performed By: #### 2 015969 #### CY [employer] [address] [place] 1468805 Segs Man 70 % Normal 37-75 [facility] Comment on above: Order Comment: Order Added by Discern Expert. Performed By: #### 2 136782 #### CY [employer] [address] [place] 1468805 eGFRon 02-24-2019 GFR/1.73 sq M predicted among non-blacks MDRD (S/P/Bld) [Vol rate/Area] mL/min/{1.73_m2} Normal [facility] Comment on above: Order Comment: Order added by Discern Expert. Performed By: #### 1 [id number] #### CY [employer] [address] [place] [address] zzplt morphon 02-24-2019 Platelet morphology finding Nom (Bld) NORMAL Normal [facility] Comment on above: Performed By: #### 9 [id number] #### CY [employer] [facility] [place] [address] Platelets (Bld) [#/Vol] NORMAL Normal [facility] Comment on above: Performed By: #### 9 [id number] #### CY [employer] [facility] [place] 1468805 Blood Glucose , Office ([phone])Ordered By: Erin Mccracken on 05-20-2015 Glucose Glucometer (BldC) [Moles/Vol] 175 1 Normal [facility] Work Phone: HgA1C , Office ([phone])Ordere d By: Erin Mccracken on 05-20-2015 HbA1c (Bld) [Mass fraction] 6.0 % Normal 4.6 - 7.1 [facility] Work Phone: OCCULT BLOOD FECES SCREEN ([phone])on 01-18-2015 Hemoglobin.gastrointes tinal Ql (Stl) negitive Normal [facility] Work Phone: HgA1C , Office ([phone])on HbA1c (Bld) [Mass fraction] 6.1 % Normal 4.6 - 7.1 [facility] Work Phone: CBC WITH MANUAL DIFF ([phone]) Ordered By: Deicer Repairer on 04-07-2013 Basophils (Bld) [#/Vol] 0.0 {x10E3/uL} Normal 0.0-0.2 [facility] Work Phone: Comment on above: PATIENT WAS FASTINGP ERFORMED BY: [facility] Yuahxy3882 [facility] [id number] Information: [id number] Basophils/100 WBC (Bld) 0 % Normal 0-3 [facility] Work Phone: Comment on above: PATIENT WAS FASTINGP ERFORMED BY: [facility] Bsbjud4490 [facility] [id number] Information: [id number] Eosinophils (Bld) [#/Vol] 0.4 {x10E3/uL} Normal 0.0-0.4 [facility] Work Phone: Comment on above: PATIENT WAS FASTINGP ERFORMED BY: [facility] Rhzuiq0120 [facility] [id number] Information: 054507,[id number] Eosinophils/100 WBC (Bld) 6 % Abnormal 0-5 [facility] Work Phone: Comment on above: PATIENT WAS FASTINGP ERFORMED BY: [facility] Bzifhg9350 [facility] [id number] Information: 042884,[id number] Erythrocyte distribution width (RBC) [Ratio] 13.8 % Normal 12.3-15.4 [facility] Work Phone: Comment on above: PATIENT WAS FASTINGP ERFORMED BY: [facility] Giohxv8868 [facility] [id number] Information: [id number],[id number] Hematocrit (Bld) [Volume fraction] 48.4 % Normal 37.5-51.0 [facility] Work Phone: Comment on above: PATIENT WAS FASTINGP ERFORMED BY: [place] 1024170 [facility] [id number] Information: 129417,[id number] Hemoglobin (Bld) [Mass/Vol] 16.6 g/dL Normal 12.6-17.7 [facility] Work Phone: Comment on above: PATIENT WAS FASTINGP ERFORMED BY: [address] [id number] Information: 281304,[id number] Immature granulocytes (Bld) [#/Vol] 0.0 {x10E3/uL} Normal 0.0-0.1 [facility] Work Phone: Comment on above: PATIENT WAS FASTINGP ERFORMED BY: [address] [id number] Information: 750531,[id number] Immature granulocytes/100 WBC (Bld) 0 % Normal 0-2 [facility] Work Phone: Comment on above: PATIENT WAS FASTINGP ERFORMED BY: [address] [id number] Information: 329074,[id number] Lymphocytes (Bld) [#/Vol] 1.9 {x10E3/uL} Normal 0.7-3.1 [facility] Work Phone: Comment on above: PATIENT WAS FASTINGP ERFORMED BY: [address] [id number] Information: [id number],[id number] Lymphocytes/100 WBC (Bld) 28 % Normal 14-46 [facility] Work Phone: Comment on above: PATIENT WAS FASTINGP ERFORMED BY: [address] [id number] Information: 152334,[id number] MCH (RBC) [Entitic mass] 32.0 pg Normal 26.6-33.0 [facility] Work Phone: Comment on above: PATIENT WAS FASTINGP ERFORMED BY: LARON [facility] Aagxah7926 [facility] [id number] Information: 735501,[id number] MCHC (RBC) [Mass/Vol] 34.3 g/dL Normal 31.5-35.7 [facility] prehensive [facility] Work Phone: Comment on above: PATIENT WAS FASTINGP ERFORMED BY: [address] [id number] Information: 737133,[id number] MCV (RBC) [Entitic vol] 93 fL Normal 79-97 [facility] Work Phone: Comment on above: PATIENT WAS FASTINGP ERFORMED BY: [address] [id number] Information: 851522,[id number] Monocytes (Bld) [#/Vol] 0.5 {x10E3/uL} Normal 0.1-0.9 [facility] Work Phone: Comment on above: PATIENT WAS FASTINGP ERFORMED BY: [address] [id number] Information: 918431,[id number] Monocytes/100 WBC (Bld) 7 % Normal 4-12 [facility] Work Phone: Comment on above: PATIENT WAS FASTINGP ERFORMED BY: [place] 1024170 [facility] [id number] Information: 453803,[id number] Neutrophils (Bld) [#/Vol] 3.9 {x10E3/uL} Normal 1.4-7.0 [facility] Work Phone: Comment on above: PATIENT WAS FASTINGP ERFORMED BY: [place] 1024170 [facility] [id number] Information: 257793,[id number] Neutrophils/100 WBC (Bld) 59 % Normal 40-74 [facility] Work Phone: Comment on above: PATIENT WAS FASTINGP ERFORMED BY: LARON LabCodarlene ParraNsadpm9419 [address] [facility] HospitalCarlinin [place] [id number] Information: 539054,[id number] Platelets (Bld) [#/Vol] 228 {x10E3/uL} Normal 155-379 [facility] Work Phone: Comment on above: PATIENT WAS FASTINGP ERFORMED BY: CB [facility] Njjmln4941 [facility] [id number] Information: 921620,[id number] RBC (Bld) [#/Vol] 5.19 {x10E6/uL} Normal 4.14-5.80 [facility] Work Phone: Comment on above: PATIENT WAS FASTINGP ERFORMED BY: LARON [facility] Kwbzdo1059 [facility] [id number] Information: 196159,[id number] WBC (Bld) [#/Vol] 6.7 {x10E3/uL} Normal 3.4-10.8 [facility] Work Phone: Comment on above: PATIENT WAS FASTINGP ERFORMED BY: LARON KaylieCodarlene ParraKqvdrf7966 [facility] [id number] Information: 932130,[id number] LIPID PANEL (67532)Ordered B y: Deicer Repairer on 04-07-2013 Cholesterol [Mass/Vol] 199 mg/dL Normal 100-199 [facility] Work Phone: Comment on above: PATIENT WAS FASTINGP ERFORMED BY: LARON [facility] Pjvipb9096 [address] [facility] [place] [id number] Cholesterol in HDL [Mass/Vol] 57 mg/dL Normal [facility] Work Phone: Comment on above: According to ATP-III Guidelines, HDL-C >59 mg/dL is considered anegative risk factor for CHD. PATIENT WAS FASTINGP ERFORMED BY: LARON [facility] Hrolfs1396 [facility]in [place] [id number] Cholesterol in LDL [Mass/Vol] 111 mg/dL Abnormal 0-99 [facility] Work Phone: Comment on above: PATIENT WAS FASTINGP ERFORMED BY: LARON LabCodarlene Uzvfid3770 Leon RoadDublin [place] [id number] Cholesterol in LDL/Cholesterol in HDL [Mass ratio] 1.9 {ratio_units} Normal 0.0-3.6 [facility] Work Phone: Comment on above: PATIENT WAS FASTINGP ERFORMED BY: LARON LabCodarlene YuCpmrwv5199 Leon RoadDublin [place] [id number] Cholesterol in VLDL [Mass/Vol] 31 mg/dL Normal 5-40 [facility] Work Phone: Comment on above: PATIENT WAS FASTINGP ERFORMED BY: LARON LabEstefanidarlene Qqfzeb9263 Leon RoadDublin [place] [id number] Triglyceride [Mass/Vol] 154 mg/dL Abnormal 0-149 [facility] Work Phone: Comment on above: PATIENT WAS FASTINGP ERFORMED BY: LARON LabEstefani Gawupi5813 Leon RoadDublin [place] [id number] METABOLIC PANEL, COMPREHENSI VE (06574)Ordered By: Deicer Repairer on 04-07-2013 Albumin [Mass/Vol] 4.7 g/dL Normal 3.6-4.8 [facility] Work Phone: Comment on above: PATIENT WAS FASTINGP ERFORMED BY: LARON [facility] Agxmme1548 Leon RoadDublin [place] [id number] Albumin/Globulin [Mass ratio] 2.0 {ratio} Normal 1.1-2.5 [facility] Work Phone: Comment on above: PATIENT WAS FASTINGP ERFORMED BY: LARON [facility] Aiewld0098 Leon RoadDublin [place] [id number] ALP [Catalytic activity/Vol] 59 [iU]/L Normal 44-103 [facility] Work Phone: Comment on above: PATIENT WAS FASTINGP ERFORMED BY: LARON [facility] Iqvryi4002 [address] RoadDublin [place] [id number] ALT [Catalytic activity/Vol] 30 [iU]/L Normal 0-44 [facility] Internal [facility] Work Phone: Comment on above: PATIENT WAS FASTINGP ERFORMED BY: LARON [facility] Dnmipp2168 Leon RoadDublin [place] [id number] AST [Catalytic activity/Vol] 25 [iU]/L Normal 0-40 [facility] Internal [facility] Work Phone: Comment on above: PATIENT WAS FASTINGP ERFORMED BY: CB [facility] Mbwdov8173 Leon RoadDublin [place] [id number] Bilirubin [Mass/Vol] 0.8 mg/dL Normal 0.0-1.2 [facility] Work Phone: Comment on above: PATIENT WAS FASTINGP ERFORMED BY: LARON [facility] Iyaysl5671 Leon RoadDublin [place] [id number] Calcium [Mass/Vol] 9.9 mg/dL Normal 8.6-10.2 [facility] Work Phone: Comment on above: PATIENT WAS FASTINGP ERFORMED BY: [facility] Xajupy3522 Leon RoadDublin [place] [id number] Chloride [Moles/Vol] 103 mmol/L Normal 97-108 [facility] Internal [facility] Work Phone: Comment on above: PATIENT WAS FASTINGP ERFORMED BY: [facility] Jlhhxh4130 Leon RoadDublin [place] [id number] CO2 [Moles/Vol] 24 mmol/L Normal 19-[address] [facility] Internal [facility] Work Phone: Comment on above: PATIENT WAS FASTINGP ERFORMED BY: CB [facility] Afbvmg4279 Leon RoadDublin [place] [id number] Creatinine [Mass/Vol] 1.07 mg/dL Normal 0.76-1.27 [facility] Work Phone: Comment on above: PATIENT WAS FASTINGP ERFORMED BY: CB [facility] Vkrats9361 [address] RoadDublin [place] [id number] GFR/1.73 sq M predicted among blacks CKD-EPI (S/P/Bld) [Vol rate/Area] 81 mL/min/1.[address] [facility] Work Phone: Comment on above: PATIENT WAS FASTINGP ERFORMED BY: LARON [facility] Zgpvxc6807 [address] RoadDublin [place] [id number] GFR/1.73 sq M predicted among non-blacks CKD-EPI (S/P/Bld) [Vol rate/Area] 70 mL/min/1.[address] [facility] Work Phone: Comment on above: PATIENT WAS FASTINGP ERFORMED BY: LARON [facility] Djqqke3335 [address] RoadDublin [place] [id number] Globulin (S) [Mass/Vol] 2.3 g/dL Normal 1.5-4.5 [facility] Internal [facility] Work Phone: Comment on above: PATIENT WAS FASTINGP ERFORMED BY: LARON [facility] Uimbhr6053 [address] RoadDublin [place] [id number] Glucose [Mass/Vol] 88 mg/dL Normal 65-99 [facility] Work Phone: Comment on above: PATIENT WAS FASTINGP ERFORMED BY: [facility] Iyoezp8381 [address] RoadDublin [place] [id number] Potassium [Moles/Vol] 4.3 mmol/L Normal 3.5-5.2 [facility] Work Phone: Comment on above: PATIENT WAS FASTINGP ERFORMED BY: [facility] Ydcurl7204 [address] RoadDublin [place] [id number] Protein [Mass/Vol] 7.0 g/dL Normal 6.0-8.5 [facility] Work Phone: Comment on above: PATIENT WAS FASTINGP ERFORMED BY: [facility] Lsvibl9412 [address] RoadDublin [place] [id number] Sodium [Moles/Vol] 141 mmol/L Normal 134-144 [facility] Work Phone: Comment on above: PATIENT WAS FASTINGP ERFORMED BY: [facility] Xbzzgj2657 [address] RoadDublin [place] [id number] Urea nitrogen [Mass/Vol] 14 mg/dL Normal 8-27 [facility] Work Phone: Comment on above: PATIENT WAS FASTINGP ERFORMED BY: LARON [employer]Comp[employer] Vfrkfz9351 OomnitzaUNC [facility] [id number] Urea nitrogen/Creatinine [Mass ratio] 13 mg/mg Normal 10-22 [facility] Work Phone: Comment on above: PATIENT WAS FASTINGP ERFORMED BY: English Helper Aohrqp7412 OomnitzaUNC Health Blue Ridge [id number] MICROALBUMINOrdered By: Syst em Material Attendant on 04-07-2013 Albumin DL <= 20 mg/L (U) [Mass/Vol] 20.4 ug/mL Abnormal 0.0-17.0 [facility] Work Phone: Comment on above: PATIENT WAS FASTINGP ERFORMED BY: English Helper Srkeuq2143 OomnitzaUNC Health Blue [facility] [id number] Albumin/Creatinine (U) [Mass ratio] 16.1 {mg/g_creat} Normal 0.0-30.0 [facility] Work Phone: Comment on above: PATIENT WAS FASTINGP ERFORMED BY: Anyone Home Ixhzkg2797 OomnitzaUNC Health [facility] [id number] Creatinine (U) [Mass/Vol] 126.7 mg/dL Normal 22.0-328.0 [facility] Work Phone: Comment on above: PATIENT WAS FASTINGP ERFORMED BY: Anyone Home Ewfcto2335 Leon SiteminisAtrium Health [facility] [id number] PSA (PROSTATE SPECIFIC ANTIG EN) (V76.44)Ordered By: Deicer Repairer on 04-07-2013 Prostate specific Ag [Mass/Vol] 4.9 ng/mL Abnormal 0.0-4.0 [facility] Work Phone: Comment on above: Jolanta ECLIA methodol ogy. .According to the [place] [employer], Serum PSA shoulddecrease and remain [...] py; PATIENT WAS FASTINGPERFORMED BY: CB [facility] Wzdvje6237 [address] RoadDublin [place] [id number] TSH ([id number])Ordered By: PostSharp Technologiese m Material Attendant on 04-07-2013 TSH Qn 1.790 {uIU/mL} Normal 0.450-4.500 Comprehen sive [facility] Medicine Work Phone: Comment on above: PATIENT WAS FASTINGP ERFORMED BY: CB [facility] Lxcdbg6466 Leon RoadDublin [place] [id number] URINALYSIS, W/ MICRO (08525) Ordered By: Deicer Repairer on 04-07-2013 Appearance (U) Clear Normal Comprehens kurtis [facility] Work Phone: Comment on above: PATIENT WAS FASTINGP ERFORMED BY: CB [facility] Jimuwl0576 [address] RoadDublin [place] [id number] Bilirubin Ql (U) Negative Normal Comprehe nsive [facility] Work Phone: Comment on above: PATIENT WAS FASTINGP ERFORMED BY: CB [facility] Mntche1786 [address] RoadDublin [place] [id number] Color (U) Yellow Normal [facility] Work Phone: Comment on above: PATIENT WAS FASTINGP ERFORMED BY: CB [facility] Eldaiq7618 [address] RoadDublin [place] [id number] Glucose Ql (U) Negative Normal Comprehens kurtis [facility] Work Phone: Comment on above: PATIENT WAS FASTINGP ERFORMED BY: CB [facility] Kwhvqe7115 [address] RoadDublin [place] [id number] Hemoglobin Ql (U) Negative Normal Compreh ensive [facility] Work Phone: Comment on above: PATIENT WAS FASTINGP ERFORMED BY: CB [facility] Msuseq5985 [address] RoadDublin [place] [id number] Ketones Ql (U) Negative Normal Comprehens kurtis [facility] Work Phone: Comment on above: PATIENT WAS FASTINGP ERFORMED BY: LARON [facility] Fjxqyo2977 [address] RoadDublin [place] [id number] Leukocyte esterase Test strip Ql (U) Negative Normal [facility] Work Phone: Comment on above: PATIENT WAS FASTINGP ERFORMED BY: LARON LabWestley YuWwqolf1524 [address] RoadDublin [place] [id number] Microscopic observation LM Nom (Urine sed) MICRON Normal [facility] Work Phone: Comment on above: Microscopic follows if indicated. PATIENT WAS FASTINGP ERFORMED BY: LARON LabCodarlene YuOoiset4108 [address] RoadDublin [place] [id number] Microscopic observation LM Nom (Urine sed) See below: Normal [facility] Work Phone: Comment on above: PATIENT WAS FASTINGP ERFORMED BY: LARON Yulin6370 [address] RoadDublin [place] [id number] Nitrite Ql (U) Negative Normal Comprehens kurtis [facility] Work Phone: Comment on above: PATIENT WAS FASTINGP ERFORMED BY: LARON Yulin6370 [address] RoadDublin [place] [id number] pH (U) 6.5 [pH] Normal 5.0-7.5 [facility] Work Phone: Comment on above: PATIENT WAS FASTINGP ERFORMED BY: LARON Yulin6370 [address] RoadDublin [place] [id number] Protein Ql (U) Negative Normal Comprehens kurtis [facility] Work Phone: Comment on above: PATIENT WAS FASTINGP ERFORMED BY: LARON [facility] Bskqvq8820 [address] RoadDublin [place] [id number] Specific gravity (U) [Rel density] 1.019 1 Normal 1.005-1.030 [facility] Work Phone: Comment on above: PATIENT WAS FASTINGP ERFORMED BY: LARON [facility] Ghufjl3300 [address] RoadDublin [place] [id number] Urobilinogen Test strip (U) [Mass/Vol] 1.0 mg/dL Normal 0.0-1.9 Comprehensi Internal Medicine Work Phone: Comment on above: PATIENT WAS FASTINGP ERFORMED BY: LARON [facility]6370 [facility] [id number] CBC WITH MANUAL DIFF (45005) Ordered By: Deicer Repairer on 02-05-2012 Basophils (Bld) [#/Vol] 0.0 {x10E3/uL} Normal 0.0-0.2 [facility] Work Phone: Comment on above: PATIENT NOT FASTINGP ERFORMED BY: [address] [id number] Information: 469482,[id number] Basophils/100 WBC (Bld) 0 % Normal 0-3 [facility] Work Phone: Comment on above: PATIENT NOT FASTINGP ERFORMED BY: [address] [id number] Information: [id number] Eosinophils (Bld) [#/Vol] 0.7 {x10E3/uL} Abnormal 0.0-0.4 [facility] Work Phone: Comment on above: PATIENT NOT FASTINGP ERFORMED BY: [place]He[place] 9278870 [facility] [id number] Information: 003687,[id number] Eosinophils/100 WBC (Bld) 9 % Abnormal 0-7 [facility] Work Phone: Comment on above: PATIENT NOT FASTINGP ERFORMED BY: [place] 1024170 [facility] [id number] Information: [id number] Erythrocyte distribution width (RBC) [Ratio] 14.2 % Normal 12.3-15.4 [facility] Work Phone: Comment on above: PATIENT NOT FASTINGP ERFORMED BY: [place] 1024170 [facility] [id number] Information: [id number],[id number] Hematocrit (Bld) [Volume fraction] 51.3 % Abnormal 37.5-51.0 [facility] Work Phone: Comment on above: PATIENT NOT FASTINGP ERFORMED BY: LARON Yulin6370 [facility] [id number] Information: 082134,[id number] Hemoglobin (Bld) [Mass/Vol] 17.7 g/dL Normal 12.6-17.7 [facility] Work Phone: Comment on above: PATIENT NOT FASTINGP ERFORMED BY: LARON Garcia Tmdksg[address] [id number] Information: [id number] Immature granulocytes (Bld) [#/Vol] 0.0 {x10E3/uL} Normal 0.0-0.1 [facility] Work Phone: Comment on above: PATIENT NOT FASTINGP ERFORMED BY: [address] [id number] Information: 571253,G82093 Immature granulocytes/100 WBC (Bld) 0 % Normal 0-2 [facility] Work Phone: Comment on above: PATIENT NOT FASTINGP ERFORMED BY: LARON Garcia Tnswpx7747 [facility] [id number] Information: 053514,[id number] Lymphocytes (Bld) [#/Vol] 1.8 {x10E3/uL} Normal 0.7-4.5 [facility] Work Phone: Comment on above: PATIENT NOT FASTINGP ERFORMED BY: [place] 1024170 [facility] [id number] Information: 157136,[id number] Lymphocytes/100 WBC (Bld) 25 % Normal 14-46 [facility] Work Phone: Comment on above: PATIENT NOT FASTINGP ERFORMED BY: LARON [place] 8295970 [facility] [id number] Information: [id number] MCH (RBC) [Entitic mass] 32.4 pg Normal 26.6-33.0 [facility] Work Phone: Comment on above: PATIENT NOT FASTINGP ERFORMED BY: LARON Parra6370 [facility] [id number] Information: [id number] MCHC (RBC) [Mass/Vol] 34.5 g/dL Normal 31.5-35.7 [facility] prehensive Internal Medicine Work Phone: Comment on above: PATIENT NOT FASTINGP ERFORMED BY: LARON Parra6370 [facility] [id number] Information: [id number] MCV (RBC) [Entitic vol] 94 fL Normal 79-97 [facility] Work Phone: Comment on above: PATIENT NOT FASTINGP ERFORMED BY: LARON Yulin6370 [facility] [id number] Information: [id number] Monocytes (Bld) [#/Vol] 0.7 {x10E3/uL} Normal 0.1-1.0 [facility] Work Phone: Comment on above: PATIENT NOT FASTINGP ERFORMED BY: LARON Parra6370 [facility] [id number] Information: [id number] Monocytes/100 WBC (Bld) 9 % Normal 4-13 [facility] Work Phone: Comment on above: PATIENT NOT FASTINGP ERFORMED BY: LARON Garcia Isnmne7438 [facility] [id number] Information: [id number] Neutrophils (Bld) [#/Vol] 4.0 {x10E3/uL} Normal 1.8-7.8 [facility] Work Phone: Comment on above: PATIENT NOT FASTINGP ERFORMED BY: LARON Yulin6370 [facility] [id number] Information: [id number] Neutrophils/100 WBC (Bld) 57 % Normal 40-74 [facility] Work Phone: Comment on above: PATIENT NOT FASTINGP ERFORMED BY: LARON [facility] Hnbijx9284 Leon RoadDublin [place] [id number] Information: [id number] Platelets (Bld) [#/Vol] 217 {x10E3/uL} Normal 140-415 [facility] Internal Medicine Work Phone: Comment on above: PATIENT NOT FASTINGP ERFORMED BY: CB [facility] Talmst6513 Leon RoadDublin [place] [id number] Information: [id number] RBC (Bld) [#/Vol] 5.47 {x10E6/uL} Normal 4.14-5.80 [facility] Internal Medicine Work Phone: Comment on above: PATIENT NOT FASTINGP ERFORMED BY: LARON LottCodarlene YuWkbcqf6000 Leon RoadDublin [place] [id number] Information: [id number] WBC (Bld) [#/Vol] 7.2 {x10E3/uL} Normal 4.0-10.5 [facility] Internal Medicine Work Phone: Comment on above: PATIENT NOT FASTINGP ERFORMED BY: LARON LabCodarlene ParraAojllq9644 Leon Roadblin [place] [id number] Information: [id number] LIPID PANEL (88170)Ordered B y: Deicer Repairer on 02-05-2012 Cholesterol [Mass/Vol] 181 mg/dL Normal 100-199 [facility] Internal Medicine Work Phone: Comment on above: PATIENT NOT FASTINGP ERFORMED BY: CB [facility] Igiovb6239 Leon RoadDublin [place] [id number] Cholesterol in HDL [Mass/Vol] 47 mg/dL Normal [facility] Internal Medicine Work Phone: Comment on above: According to ATP-III Guidelines, HDL-C >59 mg/dL is considered anegative risk factor for CHD. PATIENT NOT FASTINGP ERFORMED BY: CB [facility] Ynnhmb4741 Leon RoadDublin [place] [id number] Cholesterol in LDL [Mass/Vol] 98 mg/dL Normal 0-99 [facility] Work Phone: Comment on above: PATIENT NOT FASTINGP ERFORMED BY: LARON [facility] Rdwfnu1028 Leon RoadDublin [place] [id number] Cholesterol in LDL/Cholesterol in HDL [Mass ratio] 2.1 {ratio_units} Normal 0.0-3.6 [facility] Work Phone: Comment on above: PATIENT NOT FASTINGP ERFORMED BY: CB [facility] Osotzf4016 Leon RoadDublin [place] [id number] Cholesterol in VLDL [Mass/Vol] 36 mg/dL Normal 5-40 [facility] Work Phone: Comment on above: PATIENT NOT FASTINGP ERFORMED BY: LARON [facility] Mqnzsl3374 Leon RoadDublin [place] [id number] Triglyceride [Mass/Vol] 179 mg/dL Abnormal 0-149 [facility] Work Phone: Comment on above: PATIENT NOT FASTINGP ERFORMED BY: LARON [facility] Rbbvub8131 Leon Roadblin [place] [id number] METABOLIC PANEL, COMPREHENSI VE (14462)Ordered By: Deicer Repairer on 02-05-2012 Albumin [Mass/Vol] 4.4 g/dL Normal 3.6-4.8 [facility] Internal Medicine Work Phone: Comment on above: PATIENT NOT FASTINGP ERFORMED BY: LARON [facility] Nfcajz6321 Leon RoadDublin [place] [id number] Albumin/Globulin [Mass ratio] 1.9 {ratio} Normal 1.1-2.5 [facility] Work Phone: Comment on above: PATIENT NOT FASTINGP ERFORMED BY: CB [facility] Pkfrje2847 Leon RoadDublin [place] [id number] ALP [Catalytic activity/Vol] 62 [iU]/L Normal 25-160 [facility] Work Phone: Comment on above: PATIENT NOT FASTINGP ERFORMED BY: CB [facility] Nvakjv8103 Leon RoadDublin [place] [id number] ALT [Catalytic activity/Vol] 28 [iU]/L Normal 0-55 [facility] Internal Medicine Work Phone: Comment on above: PATIENT NOT FASTINGP ERFORMED BY: CB [facility] Fkephq0034 Leon RoadDublin [place] [id number] AST [Catalytic activity/Vol] 23 [iU]/L Normal 0-40 [facility] Internal Medicine Work Phone: Comment on above: PATIENT NOT FASTINGP ERFORMED BY: CB [facility] Eoobyh4820 Leon RoadDublin [place] [id number] Bilirubin [Mass/Vol] 0.7 mg/dL Normal 0.0-1.2 [facility] Work Phone: Comment on above: PATIENT NOT FASTINGP ERFORMED BY: CB [facility] Wpwsll1866 Leon RoadDublin [place] [id number] Calcium [Mass/Vol] 9.3 mg/dL Normal 8.6-10.2 [facility] Internal Medicine Work Phone: Comment on above: PATIENT NOT FASTINGP ERFORMED BY: CB [facility] Tdnypo2775 Leon RoadDublin [place] [id number] Chloride [Moles/Vol] 105 mmol/L Normal 97-108 [facility] Work Phone: Comment on above: PATIENT NOT FASTINGP ERFORMED BY: CB [facility] Xaszgo3741 Leon RoadDublin [place] [id number] CO2 [Moles/Vol] 23 mmol/L Normal 20-[address] [facility] Internal Medicine Work Phone: Comment on above: PATIENT NOT FASTINGP ERFORMED BY: CB [facility] Nvprdj5871 Leon RoadDublin [place] [id number] Creatinine [Mass/Vol] 1.04 mg/dL Normal 0.76-1.27 [facility] Internal Medicine Work Phone: Comment on above: PATIENT NOT FASTINGP ERFORMED BY: CB [facility] Uquluh5069 Leon RoadDublin [place] [id number] GFR/1.73 sq M predicted among blacks CKD-EPI (S/P/Bld) [Vol rate/Area] 85 mL/min/1.[address] [facility] Internal Medicine Work Phone: Comment on above: PATIENT NOT FASTINGP ERFORMED BY: CB [facility] Weofic2533 [address] RoadDublin [place] [id number] GFR/1.73 sq M predicted among non-blacks CKD-EPI (S/P/Bld) [Vol rate/Area] 73 mL/min/1.[address] [facility] Internal Medicine Work Phone: Comment on above: PATIENT NOT FASTINGP ERFORMED BY: CB [facility] Ukwkyg2593 [address] RoadDublin [place] [id number] Globulin (S) [Mass/Vol] 2.3 g/dL Normal 1.5-4.5 [facility] Internal Medicine Work Phone: Comment on above: PATIENT NOT FASTINGP ERFORMED BY: CB [facility] Willde5540 [address] RoadDublin [place] [id number] Glucose [Mass/Vol] 86 mg/dL Normal 65-99 [facility] Internal Medicine Work Phone: Comment on above: PATIENT NOT FASTINGP ERFORMED BY: CB [facility] Kxymdh7258 Leon RoadDublin [place] [id number] Potassium [Moles/Vol] 4.1 mmol/L Normal 3.5-5.2 [facility] Internal Medicine Work Phone: Comment on above: PATIENT NOT FASTINGP ERFORMED BY: CB [facility] Ljmdjz1463 Leon RoadDublin [place] [id number] Protein [Mass/Vol] 6.7 g/dL Normal 6.0-8.5 [facility] Internal Medicine Work Phone: Comment on above: PATIENT NOT FASTINGP ERFORMED BY: CB [facility] Odfmgi1902 Leon RoadDublin [place] [id number] Sodium [Moles/Vol] 142 mmol/L Normal 134-144 [facility] Internal Medicine Work Phone: Comment on above: PATIENT NOT FASTINGP ERFORMED BY: CB [facility] Iqdtxd9132 [address] RoadDublin [place] [id number] Urea nitrogen [Mass/Vol] 12 mg/dL Normal 8-27 [facility] Work Phone: Comment on above: PATIENT NOT FASTINGP ERFORMED BY: LARON Parra6370 [facility] [id number] Urea nitrogen/Creatinine [Mass ratio] 12 mg/mg Normal 10-22 [facility] Work Phone: Comment on above: PATIENT NOT FASTINGP ERFORMED BY: LARON LabWestely Parra6370 [facility] [id number] MICROALBUMINOrdered By: Syst em Material Attendant on 02-05-2012 Albumin DL <= 20 mg/L (U) [Mass/Vol] 21.3 ug/mL Abnormal 0.0-17.0 [facility] Work Phone: Comment on above: PATIENT NOT FASTINGP ERFORMED BY: LARON Richard Rshijz7368 [facility] [id number] Albumin/Creatinine (U) [Mass ratio] 18.1 {mg/g_creat} Normal 0.0-30.0 [facility] Work Phone: Comment on above: PATIENT NOT FASTINGP ERFORMED BY: LARON Richard Yulin6370 [address] [facility] [id number] Creatinine (U) [Mass/Vol] 117.9 mg/dL Normal 22.0-328.0 [facility] Work Phone: Comment on above: PATIENT NOT FASTINGP ERFORMED BY: LARON Jose Vlnxna7313 [facility] [id number] TSH (89925)Ordered By: Syste m Material Attendant on 02-05-2012 TSH Qn 1.960 {uIU/mL} Normal 0.450-4.500 Comprehen s[facility] Work Phone: Comment on above: PATIENT NOT FASTINGP ERFORMED BY: LARON LabEstefanidarlene Cbcpnv6419 [address] [facility] [id number] URINALYSIS, W/ MICRO (07357) Ordered By: Deicer Repairer on 02-05-2012 Appearance (U) Clear Normal Comprehens kurits Internal Medicine Work Phone: Comment on above: PATIENT NOT FASTINGP ERFORMED BY: LARON [facility] Vpkxld7558 Leon RoadDublin [place] [id number] Bilirubin Ql (U) Negative Normal Comprehe nsive Internal Medicine Work Phone: Comment on above: PATIENT NOT FASTINGP ERFORMED BY: LARON [facility] Tsgadc8196 [address] RoadDublin [place] [id number] Color (U) Yellow Normal [facility] Work Phone: Comment on above: PATIENT NOT FASTINGP ERFORMED BY: CB [facility] Hdqnvz9361 [address] RoadDublin [place] [id number] Glucose Ql (U) Negative Normal Comprehens kurtis Internal Medicine Work Phone: Comment on above: PATIENT NOT FASTINGP ERFORMED BY: LARON [facility] Tyeqhj0624 Leon RoadDublin [place] [id number] Hemoglobin Ql (U) Negative Normal Compreh ensive Internal Medicine Work Phone: Comment on above: PATIENT NOT FASTINGP ERFORMED BY: LARON [facility] Cgmzaz8446 [address] RoadDublin [place] [id number] Ketones Ql (U) Negative Normal Comprehens k[facility] Internal [facility] Work Phone: Comment on above: PATIENT NOT FASTINGP ERFORMED BY: LARON [facility] Otshqi5382 [address] RoadDublin [place] [id number] Leukocyte esterase Test strip Ql (U) Negative Normal [facility] Work Phone: Comment on above: PATIENT NOT FASTINGP ERFORMED BY: CB [facility] Yfaded9068 Leon RoadDublin [place] [id number] Microscopic observation LM Nom (Urine sed) MICRON Normal [facility] Work Phone: Comment on above: Microscopic follows if indicated. PATIENT NOT FASTINGP ERFORMED BY: LARON [facility] Rujsfu2430 Leon RoadDublin [place] [id number] Microscopic observation LM Nom (Urine sed) See below: Normal [facility] Work Phone: Comment on above: PATIENT NOT FASTINGP ERFORMED BY: CB [facility] Sarwkt9912 [address] RoadDublin [place] [id number] Nitrite Ql (U) Negative Normal Comprehens [facility] Work Phone: Comment on above: PATIENT NOT FASTINGP ERFORMED BY: LARON LabWestley YuTojrfs7202 [facility] [id number] pH (U) 6.5 [pH] Normal 5.0-7.5 [facility] Work Phone: Comment on above: PATIENT NOT FASTINGP ERFORMED BY: LARON LabCodarlene YuQkbshk6975 [facility] [id number] Protein Ql (U) Negative Normal Comprehens [facility] Internal [facility] Work Phone: Comment on above: PATIENT NOT FASTINGP ERFORMED BY: LARON Yulin6370 [facility] [id number] Specific gravity (U) [Rel density] 1.016 1 Normal 1.005-1.030 [facility] Work Phone: Comment on above: PATIENT NOT FASTINGP ERFORMED BY: LARON Garcia Mkwltj8008 [facility] [id number] Urobilinogen Test strip (U) [Mass/Vol] 0.2 mg/dL Normal 0.0-1.9 Comprehensi [facility] Medicine Work Phone: Comment on above: PATIENT NOT FASTINGP ERFORMED BY: LARON [facility] Wtfxps5901 [facility] [id number] Glucose, PP/2 Hour (36471)Or dered By: Deicer Repairer on 01-22-2010 Glucose 2 Hr post meal [Mass/Vol] 134 mg/dL Normal 65-139 [facility] Work Phone: Comment on above: SOON POSSIBLE; PATIENT WAS FASTINGPERFORMED BY: LARON [facility]Re[facility] Vfewqa0580 [facility] [id number] Information: [id number] 75G DRAWN@ 1030AM CARBON MONOXIDE (13041)Order ed By: Andie Erazo on 04-19-2009 Carboxyhemoglobin (Bld) [Mass fraction] 5.3 % Abnormal 0.0-1.9 Comprehens [facility] Internal Medicine Work Phone: Comment on above: Environmental Exposu re: Nonsmokers <2.0 Smokers <9.0 Occupational Exposure: LINDA 3.5 . Detection Limit = 0.1 PATIENT NOT FASTINGP ERFORMED BY: [employer] [address] [id number] CBC (Auto) (62083)Ordered By : Andie Erazo on 04-19-2009 Erythrocyte distribution width (RBC) [Ratio] 14.4 % Normal 11.7-15.0 [facility] Internal Medicine Work Phone: Comment on above: PATIENT NOT FASTINGC linical Information: [id number] PERFORMED BY: [employer] [address] [id number] Hematocrit (Bld) [Volume fraction] 51.5 % Abnormal 36.0-50.0 [facility] Internal Medicine Work Phone: Comment on above: PATIENT NOT FASTINGC linical Information: [id number] PERFORMED BY: [employer] [address] [id number] Hemoglobin (Bld) [Mass/Vol] 17.3 g/dL Abnormal 12.5-17.0 [facility] Internal Medicine Work Phone: Comment on above: PATIENT NOT FASTINGC linical Information: [id number] PERFORMED BY: [address] [id number] MCH (RBC) [Entitic mass] 32.3 pg Normal 27.0-34.0 [facility] Internal Medicine Work Phone: Comment on above: PATIENT NOT FASTINGC linical Information: [id number] PERFORMED BY: [address] [id number] MCHC (RBC) [Mass/Vol] 33.6 g/dL Normal 32.0-36.0 [facility] Internal Medicine Work Phone: Comment on above: PATIENT NOT FASTINGC linical Information: [id number] PERFORMED BY: BN [facility] [id number] MCV (RBC) [Entitic vol] 96 fL Normal 80-98 [facility] Work Phone: Comment on above: PATIENT NOT FASTINGC linical Information: [id number] PERFORMED BY: [employer] [id number] Platelets (Bld) [#/Vol] 203 {x10E3/uL} Normal 140-415 [facility] Work Phone: Comment on above: PATIENT NOT FASTINGC linical Information: [id number],[id number] PERFORMED BY: [employer] [id number] RBC (Bld) [#/Vol] 5.36 {x10E6/uL} Normal 4.10-5.60 [facility] Internal Medicine Work Phone: Comment on above: PATIENT NOT FASTINGC linical Information: [id number],[id number] PERFORMED BY: [employer] [id number] WBC (Bld) [#/Vol] 5.8 {x10E3/uL} Normal 4.0-10.5 [facility] Internal Medicine Work Phone: Comment on above: PATIENT NOT FASTINGC linical Information: [id number] PERFORMED BY: [employer] [id number] HEPATIC FUNCTION PANEL (8007 6)Ordered By: Andie Erazo on 04-19-2009 Albumin [Mass/Vol] 4.6 g/dL Normal 3.6-4.8 [facility] Internal Medicine Work Phone: Comment on above: PATIENT NOT FASTINGP ERFORMED BY: [employer] [id number] ALP [Catalytic activity/Vol] 70 [iU]/L Normal 25-160 [facility] Internal Medicine Work Phone: Comment on above: PATIENT NOT FASTINGP ERFORMED BY: [employer] [id number] ALT [Catalytic activity/Vol] 36 [iU]/L Normal 0-55 [facility] Work Phone: Comment on above: PATIENT NOT FASTINGP ERFORMED BY: [facility] [id number] AST [Catalytic activity/Vol] 24 [iU]/L Normal 0-40 [facility] Work Phone: Comment on above: PATIENT NOT FASTINGP ERFORMED BY: Lab[address] [id number] Bilirubin [Mass/Vol] 0.6 mg/dL Normal 0.1-1.2 [facility] Internal Medicine Work Phone: Comment on above: PATIENT NOT FASTINGP ERFORMED BY: Lab[address] [id number] Bilirubin.direct [Mass/Vol] 0.14 mg/dL Normal 0.00-0.40 [facility] Work Phone: Comment on above: PATIENT NOT FASTINGP ERFORMED BY: Lab[address] [id number] Protein [Mass/Vol] 7.1 g/dL Normal 6.0-8.5 [facility] Internal Medicine Work Phone: Comment on above: PATIENT NOT FASTINGP ERFORMED BY: [employer] [id number] Lipid Panel ([id number])Ordered B y: Andie Erazo on 04-19-2009 Cholesterol [Mass/Vol] 248 mg/dL Abnormal 100-199 [facility] Internal Medicine Work Phone: Comment on above: PATIENT NOT FASTINGP ERFORMED BY: Lab[address] [id number] Cholesterol in HDL [Mass/Vol] 46 mg/dL Normal [facility] Work Phone: Comment on above: According to ATP-III Guidelines, HDL-C >59 mg/dL is considered anegative risk factor for CHD. PATIENT NOT FASTINGP ERFORMED BY: BN [facility] [address] [id number] Cholesterol in LDL [Mass/Vol] 158 mg/dL Abnormal 0-99 [facility] Work Phone: Comment on above: PATIENT NOT FASTINGP ERFORMED BY: [employer] [address] [id number] Cholesterol in LDL/Cholesterol in HDL [Mass ratio] 3.4 {ratio_units} Normal 0.0-3.6 [facility] Work Phone: Comment on above: PATIENT NOT FASTINGP ERFORMED BY: [address] [id number] Cholesterol in VLDL [Mass/Vol] 44 mg/dL Abnormal 5-40 [facility] Work Phone: Comment on above: PATIENT NOT FASTINGP ERFORMED BY: [address] [id number] Triglyceride [Mass/Vol] 219 mg/dL Abnormal 0-149 [facility] Work Phone: Comment on above: PATIENT NOT FASTINGP ERFORMED BY: [employer] [address] [id number] CARBON MONOXIDE (05452)Order ed By: Olga Spears on 02-18-2009 Carboxyhemoglobin (Bld) [Mass fraction] 8.7 % Abnormal 0.0-1.9 [facility] Internal Medicine Work Phone: Comment on above: Environmental Exposu re: Nonsmokers <2.0 Smokers <9.0 Occupational Exposure: LINDA 3.5 . Detection Limit = 0.1 PATIENT NOT FASTINGP ERFORMED BY: [employer] [id number] CBC WITH MANUAL DIFF (77892) Ordered By: Olga Spears on 02-18-2009 Basophils (Bld) [#/Vol] 0.0 {x10E3/uL} Normal 0.0-0.2 [facility] Work Phone: Comment on above: PATIENT NOT FASTINGC linical Information: ADD [id number] PERFORMED BY: [employer] [address] [id number] Basophils/100 WBC (Bld) 0 % Normal 0-3 [facility] Work Phone: Comment on above: PATIENT NOT FASTINGC linical Information: ADD [id number] PERFORMED BY: [employer] [address] [id number] Eosinophils (Bld) [#/Vol] 0.6 {x10E3/uL} Abnormal 0.0-0.4 [facility] Work Phone: Comment on above: PATIENT NOT FASTINGC linical Information: ADD 738316,[id number] PERFORMED BY: [employer] [address] [id number] Eosinophils/100 WBC (Bld) 8 % Abnormal 0-7 [facility] Work Phone: Comment on above: PATIENT NOT FASTINGC linical Information: ADD [id number],[id number] PERFORMED BY: [employer] [address] [id number] Erythrocyte distribution width (RBC) [Ratio] 14.3 % Normal 11.7-15.0 [facility] Work Phone: Comment on above: PATIENT NOT FASTINGC linical Information: ADD [id number],[id number] PERFORMED BY: [employer] [address] [id number] Hematocrit (Bld) [Volume fraction] 52.8 % Abnormal 36.0-50.0 [facility] Work Phone: Comment on above: PATIENT NOT FASTINGC linical Information: ADD [id number],[id number] PERFORMED BY: [employer] [address] [id number] Hemoglobin (Bld) [Mass/Vol] 18.0 g/dL Abnormal 12.5-17.0 [facility] Work Phone: Comment on above: PATIENT NOT FASTINGC linical Information: ADD [id number],[id number] PERFORMED BY: [employer] [address] [id number] Lymphocytes (Bld) [#/Vol] 1.7 {x10E3/uL} Normal 0.7-4.5 [facility] Work Phone: Comment on above: PATIENT NOT FASTINGC linical Information: ADD [id number],[id number] PERFORMED BY: [employer] [address] [id number] Lymphocytes/100 WBC (Bld) 24 % Normal 14-46 [facility] Work Phone: Comment on above: PATIENT NOT FASTINGC linical Information: ADD [id number] PERFORMED BY: [employer] [address] [id number] MCH (RBC) [Entitic mass] 32.7 pg Normal 27.0-34.0 [facility] Internal Medicine Work Phone: Comment on above: PATIENT NOT FASTINGC linical Information: ADD [id number],[id number] PERFORMED BY: [employer] [address] [id number] MCHC (RBC) [Mass/Vol] 34.2 g/dL Normal 32.0-36.0 [facility] Internal Medicine Work Phone: Comment on above: PATIENT NOT FASTINGC linical Information: ADD [id number] PERFORMED BY: [employer] [address] [id number] MCV (RBC) [Entitic vol] 96 fL Normal 80-98 [facility] Work Phone: Comment on above: PATIENT NOT FASTINGC linical Information: ADD [id number],[id number] PERFORMED BY: [employer] [address] [id number] Monocytes (Bld) [#/Vol] 0.4 {x10E3/uL} Normal 0.1-1.0 [facility] Internal Medicine Work Phone: Comment on above: PATIENT NOT FASTINGC linical Information: ADD [id number] PERFORMED BY: [employer] [address] [id number] Monocytes/100 WBC (Bld) 6 % Normal 4-13 [facility] Work Phone: Comment on above: PATIENT NOT FASTINGC linical Information: ADD [id number],[id number] PERFORMED BY: [employer] [address] [id number] Neutrophils (Bld) [#/Vol] 4.3 {x10E3/uL} Normal 1.8-7.8 [facility] Work Phone: Comment on above: PATIENT NOT FASTINGC linical Information: ADD 748393,[id number] PERFORMED BY: [employer] [address] [id number] Neutrophils/100 WBC (Bld) 62 % Normal 40-74 [facility] Work Phone: Comment on above: PATIENT NOT FASTINGC linical Information: ADD [id number],[id number] PERFORMED BY: [employer] [address] [id number] Platelets (Bld) [#/Vol] 189 {x10E3/uL} Normal 140-415 [facility] Work Phone: Comment on above: PATIENT NOT FASTINGC linical Information: ADD [id number] PERFORMED BY: [employer] [address] [id number] RBC (Bld) [#/Vol] 5.51 {x10E6/uL} Normal 4.10-5.60 [facility] Internal Medicine Work Phone: Comment on above: PATIENT NOT FASTINGC linical Information: ADD [id number] PERFORMED BY: [employer] [address] [id number] WBC (Bld) [#/Vol] 7.0 {x10E3/uL} Normal 4.0-10.5 [facility] Internal Medicine Work Phone: Comment on above: PATIENT NOT FASTINGC linical Information: ADD [id number] PERFORMED BY: [address] [id number] METABOLIC PANEL, COMPREHENSI VE (44716)Ordered By: Olga Spears on 02-18-2009 Albumin [Mass/Vol] 4.5 g/dL Normal 3.6-4.8 [facility] Internal Medicine Work Phone: Comment on above: PATIENT NOT FASTINGP ERFORMED BY: BN [facility] Nunazwlhrt[address] [id number] Albumin/Globulin [Mass ratio] 1.8 {ratio} Normal 1.1-2.5 [facility] Work Phone: Comment on above: PATIENT NOT FASTINGP ERFORMED BY: BN [facility] Jrnirwuhwi[address] [id number] ALP [Catalytic activity/Vol] 76 [iU]/L Normal 25-160 [facility] Work Phone: Comment on above: PATIENT NOT FASTINGP ERFORMED BY: BN [facility] Ebgvvebugw[address] [id number] ALT [Catalytic activity/Vol] 41 [iU]/L Normal 0-55 [facility] Work Phone: Comment on above: PATIENT NOT FASTINGP ERFORMED BY: BN [facility] Nokztsmviu[address] [id number] AST [Catalytic activity/Vol] 27 [iU]/L Normal 0-40 [facility] Work Phone: Comment on above: PATIENT NOT FASTINGP ERFORMED BY: BN [facility] [id number] [address] [id number] Bilirubin [Mass/Vol] 0.8 mg/dL Normal 0.1-1.2 [facility] Internal Medicine Work Phone: Comment on above: PATIENT NOT FASTINGP ERFORMED BY: BN [facility] [address] [id number] Calcium [Mass/Vol] 9.8 mg/dL Normal 8.5-10.6 [facility] Internal Medicine Work Phone: Comment on above: PATIENT NOT FASTINGP ERFORMED BY: BN [facility] Ry[address]xpuuas[address] [id number] Chloride [Moles/Vol] 105 mmol/L Normal 97-108 [facility]: Comment on above: PATIENT NOT FASTINGP ERFORMED BY: [address] [id number] CO2 [Moles/Vol] 24 mmol/L Normal 20-32 [facility] Internal Medicine Work Phone: Comment on above: PATIENT NOT FASTINGP ERFORMED BY: [employer] [address] [id number] Creatinine [Mass/Vol] 1.20 mg/dL Normal 0.76-1.27 [facility]: Comment on above: PATIENT NOT FASTINGP ERFORMED BY: [address] [id number] GFR/1.73 sq M predicted among blacks MDRD (S/P/Bld) [Vol rate/Area] mL/min/{1.73_m2} Normal [facility] Work Phone: Comment on above: Note: Persistent red uction for 3 months or more in an eGFR<60 mL/min/1.73 m2 defines CKD. Patients with eGFR values>/=60 mL/min/1.73 m2 may also have CKD if evidence of persistentproteinuria is present. Additional information may be found [email or web address]. PATIENT NOT FASTINGP ERFORMED BY: [address] [id number] GFR/1.73 sq M.predicted MDRD (S/P/Bld) [Vol rate/Area] mL/min/{1.73_m2} Normal [facility] Work Phone: Comment on above: PATIENT NOT FASTINGP ERFORMED BY: [employer] [address] [id number] Globulin (S) [Mass/Vol] 2.5 g/dL Normal 1.5-4.5 [facility] Work Phone: Comment on above: PATIENT NOT FASTINGP ERFORMED BY: [employer] [address] [id number] Glucose [Mass/Vol] 89 mg/dL Normal 65-99 [facility] Internal Medicine Work Phone: Comment on above: PATIENT NOT FASTINGP ERFORMED BY: BN [facility] [address] [id number] Potassium [Moles/Vol] 4.3 mmol/L Normal 3.5-5.2 [facility] Internal Medicine Work Phone: Comment on above: PATIENT NOT FASTINGP ERFORMED BY: BN [facility] [address] [id number] Protein [Mass/Vol] 7.0 g/dL Normal 6.0-8.5 [facility] Internal Medicine Work Phone: Comment on above: PATIENT NOT FASTINGP ERFORMED BY: BN [facility] [address] [id number] Sodium [Moles/Vol] 140 mmol/L Normal 135-145 [facility] Internal Medicine Work Phone: Comment on above: PATIENT NOT FASTINGP ERFORMED BY: BN [facility] [address] [id number] Urea nitrogen [Mass/Vol] 14 mg/dL Normal 5-26 [facility] Internal Medicine Work Phone: Comment on above: PATIENT NOT FASTINGP ERFORMED BY: BN [facility] Advnfjjzxo5707 [facility] [id number] Urea nitrogen/Creatinine [Mass ratio] 12 mg/mg Normal 8-27 [facility] Internal Medicine Work Phone: Comment on above: PATIENT NOT FASTINGP ERFORMED BY: BN [facility] [address] [id number] PSA (PROSTATE SPECIFIC ANTIG EN) (V76.44)Ordered By: Olga Spears on 02-18-2009 Prostate specific Ag [Mass/Vol] 2.8 ng/mL Normal 0.0-4.0 [facility] Internal Medicine Work Phone: Comment on above: Jolanta ECLIA methodol ogy. .According to the [employer], PSA should beundetectable after radical prostatectomy. A PSA of less than0.5 ng/mL (or undetectable) is not likely to be associated withdisease recurrence within five years of treatment.Values obtained with different assay methods or kits cannot be usedinterchangeably. Results cannot be interpreted as absolute evidenceof the presence or absence of malignant disease. PATIENT NOT FASTINGP ERFORMED BY: [employer] Wssxqqpqsg1535 [facility] [id number] TSH ([id number])Ordered By: Estrellita Spears on 02-18-2009 TSH Qn 1.960 {uIU/mL} Normal 0.450-4.[address] [facility] Internal Medicine Work Phone: Comment on above: Effective January 282008, TSH will be changing to the [employer] ECLIA methodology. The reference interval will be [...] - 4.500 PATIENT NOT FASTINGP ERFORMED BY: [employer] Tukrymqqgo8616 [facility] [id number] CBC WITH MANUAL DIFF ([id number]) Ordered By: Andie Erazo on 01-04-2009 Basophils (Bld) [#/Vol] 0.0 {x10E3/uL} Normal 0.0-0.2 [facility] Work Phone: Comment on above: PATIENT WAS FASTINGC linical Information: ADD DRAW FEE [id number] ADD J [id number] PERFORMED BY: [facility] [id number] Basophils/100 WBC (Bld) 0 % Normal 0-3 [facility] Work Phone: Comment on above: PATIENT WAS FASTINGC linical Information: ADD DRAW FEE [id number] ADD J 30191 PERFORMED BY: [facility] [id number] Eosinophils (Bld) [#/Vol] 0.6 {x10E3/uL} Abnormal 0.0-0.4 [facility] Work Phone: Comment on above: PATIENT WAS FASTINGC linical Information: ADD DRAW FEE [id number] ADD J 07497 PERFORMED BY: [place] 1024170 [facility] [id number] Eosinophils/100 WBC (Bld) 9 % Abnormal 0-7 [facility] Work Phone: Comment on above: PATIENT WAS FASTINGC linical Information: ADD DRAW FEE [id number] ADD J PERFORMED BY: [address] [id number] Erythrocyte distribution width (RBC) [Ratio] 14.5 % Normal 11.7-15.0 [facility] Work Phone: Comment on above: PATIENT WAS FASTINGC linical Information: ADD DRAW FEE [id number] ADD J PERFORMED BY: [address] [id number] Hematocrit (Bld) [Volume fraction] 52.7 % Abnormal 36.0-50.0 [facility] Work Phone: Comment on above: PATIENT WAS FASTINGC linical Information: ADD DRAW FEE [id number] ADD J PERFORMED BY: [place] 1024170 [facility] [id number] Hemoglobin (Bld) [Mass/Vol] 17.7 g/dL Abnormal 12.5-17.0 [facility] Work Phone: Comment on above: PATIENT WAS FASTINGC linical Information: ADD DRAW FEE [id number] ADD J 11621 PERFORMED BY: [address] [id number] Lymphocytes (Bld) [#/Vol] 1.5 {x10E3/uL} Normal 0.7-4.5 [facility] Work Phone: Comment on above: PATIENT WAS FASTINGC linical Information: ADD DRAW FEE 507542 ADD J 22102 PERFORMED BY: [address] [id number] Lymphocytes/100 WBC (Bld) 23 % Normal 14-46 [facility] Internal Medicine Work Phone: Comment on above: PATIENT WAS FASTINGC linical Information: ADD DRAW FEE [id number] ADD J 86618 PERFORMED BY: [facility]6370 [facility] [id number] MCH (RBC) [Entitic mass] 32.5 pg Normal 27.0-34.0 [facility] Internal Medicine Work Phone: Comment on above: PATIENT WAS FASTINGC linical Information: ADD DRAW FEE 513609 ADD J 17739 PERFORMED BY: [address] [id number] MCHC (RBC) [Mass/Vol] 33.6 g/dL Normal 32.0-36.0 [facility] Internal Medicine Work Phone: Comment on above: PATIENT WAS FASTINGC linical Information: ADD DRAW FEE 928110 ADD J 75390 PERFORMED BY: [address] [id number] MCV (RBC) [Entitic vol] 97 fL Normal 80-98 [facility] Internal Medicine Work Phone: Comment on above: PATIENT WAS FASTINGC linical Information: ADD DRAW FEE 187214 [place] 98209 PERFORMED BY: [address] [id number] Monocytes (Bld) [#/Vol] 0.4 {x10E3/uL} Normal 0.1-1.0 [facility] Internal Medicine Work Phone: Comment on above: PATIENT WAS FASTINGC linical Information: ADD DRAW FEE 712142 ADD J 80301 PERFORMED BY: [address] [id number] Monocytes/100 WBC (Bld) 6 % Normal 4-13 [facility] Work Phone: Comment on above: PATIENT WAS FASTINGC linical Information: ADD DRAW FEE 937979 [place] J 71122 PERFORMED BY: [address] [id number] Neutrophils (Bld) [#/Vol] 4.0 {x10E3/uL} Normal 1.8-7.8 [facility] Internal Medicine Work Phone: Comment on above: PATIENT WAS FASTINGC linical Information: ADD DRAW FEE 021088 ADD J 80956 PERFORMED BY: LARON [employer] Yddvsj2556 [facility] [id number] Neutrophils/100 WBC (Bld) 62 % Normal 40-74 [facility] Internal Medicine Work Phone: Comment on above: PATIENT WAS FASTINGC linical Information: ADD DRAW FEE 848612 ADD J 62939 PERFORMED BY: English [employer] Abctss683[address] [id number] Platelets (Bld) [#/Vol] 211 {x10E3/uL} Normal 140-415 [facility] Internal Medicine Work Phone: Comment on above: Please note refere nce interval change PATIENT WAS FASTINGC linical Information: ADD DRAW FEE 032212 ADD J 55438 PERFORMED BY: LARON [employer] Gtybvd8751 [facility] [id number] RBC (Bld) [#/Vol] 5.44 {x10E6/uL} Normal 4.10-5.60 [facility] Internal Medicine Work Phone: Comment on above: PATIENT WAS FASTINGC linical Information: ADD DRAW FEE 891210 ADD J 22248 PERFORMED BY: English [employer] Fpwslh8569 [facility] [id number] WBC (Bld) [#/Vol] 6.5 {x10E3/uL} Normal 4.0-10.5 [facility] Internal Medicine Work Phone: Comment on above: PATIENT WAS FASTINGC linical Information: ADD DRAW FEE 760723 ADD J 98408 PERFORMED BY: English [employer]per Ywodsg8778 [facility] [id number] LIPID PANEL ([id number])Ordered B y: Andie Kacey on 01-04-2009 Cholesterol [Mass/Vol] 225 mg/dL Abnormal 100-199 [facility] Internal Medicine Work Phone: Comment on above: PATIENT WAS FASTINGP ERFORMED BY: [facility] Csvuqj7175 [facility] [id number] Cholesterol in HDL [Mass/Vol] 46 mg/dL Normal [facility] Work Phone: Comment on above: According to ATP-III Guidelines, HDL-C >59 mg/dL is considered anegative risk factor for CHD. PATIENT WAS FASTINGP ERFORMED BY: [facility] Bjadub5426 [facility] [id number] Cholesterol in LDL [Mass/Vol] 140 mg/dL Abnormal 0-99 [facility] Work Phone: Comment on above: PATIENT WAS FASTINGP ERFORMED BY: [facility] Zmoakg3625 [facility] [id number] Cholesterol in LDL/Cholesterol in HDL [Mass ratio] 3.0 {ratio_units} Normal 0.0-3.6 [facility] Work Phone: Comment on above: PATIENT WAS FASTINGP ERFORMED BY: [facility] Ledkqi9028 [facility] [id number] Cholesterol in VLDL [Mass/Vol] 39 mg/dL Normal 5-40 [facility] Work Phone: Comment on above: PATIENT WAS FASTINGP ERFORMED BY: [facility] Hlqwxa1627 [facility] [id number] Triglyceride [Mass/Vol] 196 mg/dL Abnormal 0-149 [facility] Work Phone: Comment on above: PATIENT WAS FASTINGP ERFORMED BY: [facility] Hiydaw0586 [facility] [id number] METABOLIC PANEL, COMPREHENSI VE ([id number])Ordered By: Andie Erazo on 01-04-2009 Albumin [Mass/Vol] 4.6 g/dL Normal 3.6-4.8 [facility] Internal Medicine Work Phone: Comment on above: PATIENT WAS FASTINGP ERFORMED BY: [facility] Apnozr3107 [facility] [id number] Albumin/Globulin [Mass ratio] 1.8 {ratio} Normal 1.1-2.5 [facility] Work Phone: Comment on above: PATIENT WAS FASTINGP ERFORMED BY: LARON [facility]6370 [facility] [id number] ALP [Catalytic activity/Vol] 79 [iU]/L Normal 25-160 [facility] Work Phone: Comment on above: PATIENT WAS FASTINGP ERFORMED BY: LARON [place] 8295970 [facility] [id number] ALT [Catalytic activity/Vol] 33 [iU]/L Normal 0-55 [facility] Work Phone: Comment on above: PATIENT WAS FASTINGP ERFORMED BY: LARON [facility]6370 [facility] [id number] AST [Catalytic activity/Vol] 24 [iU]/L Normal 0-40 [facility] Work Phone: Comment on above: PATIENT WAS FASTINGP ERFORMED BY: LARON [facility] Xicppa0912 [facility] [id number] Bilirubin [Mass/Vol] 0.7 mg/dL Normal 0.1-1.2 [facility] Work Phone: Comment on above: PATIENT WAS FASTINGP ERFORMED BY: LARON L[facility]Prom[facility]6370 [facility] [id number] Calcium [Mass/Vol] 10.0 mg/dL Normal 8.5-10.6 [facility] Internal Medicine Work Phone: Comment on above: PATIENT WAS FASTINGP ERFORMED BY: [facility]6370 [facility] [id number] Chloride [Moles/Vol] 103 mmol/L Normal 97-108 [facility] Work Phone: Comment on above: PATIENT WAS FASTINGP ERFORMED BY: [facility]6370 [facility] [id number] CO2 [Moles/Vol] 23 mmol/L Normal 20-32 [facility] Internal Medicine Work Phone: Comment on above: PATIENT WAS FASTINGP ERFORMED BY: [facility]6370 [facility] [id number] Creatinine [Mass/Vol] 1.23 mg/dL Normal 0.76-1.27 [facility] Internal Medicine Work Phone: Comment on above: PATIENT WAS FASTINGP ERFORMED BY: LARON [facility]6370 [facility] [id number] GFR/1.73 sq M predicted among blacks MDRD (S/P/Bld) [Vol rate/Area] mL/min/{1.73_m2} Normal [facility] Work Phone: Comment on above: Note: Persistent red uction for 3 months or more in an eGFR<60 mL/min/1.73 m2 defines CKD. Patients with eGFR values>/=60 mL/min/1.73 m2 may also have CKD if evidence of persistentproteinuria is present. Additional information may be found [email or web address]. PATIENT WAS FASTINGP ERFORMED BY: [facility]6370 [facility] [id number] GFR/1.73 sq M.predicted MDRD (S/P/Bld) [Vol rate/Area] 59 mL/min/{1.73_m2} Abnormal [facility] Internal Medicine Work Phone: Comment on above: PATIENT WAS FASTINGP ERFORMED BY: [facility]6370 [facility] [id number] Globulin (S) [Mass/Vol] 2.5 g/dL Normal 1.5-4.5 [facility] Internal Medicine Work Phone: Comment on above: PATIENT WAS FASTINGP ERFORMED BY: [facility]6370 [facility] [id number] Glucose [Mass/Vol] 98 mg/dL Normal 65-99 [facility] Internal Medicine Work Phone: Comment on above: PATIENT WAS FASTINGP ERFORMED BY: [facility]6370 [facility] [id number] Potassium [Moles/Vol] 4.3 mmol/L Normal 3.5-5.2 [facility] Internal Medicine Work Phone: Comment on above: PATIENT WAS FASTINGP ERFORMED BY: CB [facility] Tjacjg7661 [facility] [place] [id number] Protein [Mass/Vol] 7.1 g/dL Normal 6.0-8.5 [facility] Internal Medicine Work Phone: Comment on above: PATIENT WAS FASTINGP ERFORMED BY: CB [facility] Fadray3158 [facility] [id number] Sodium [Moles/Vol] 141 mmol/L Normal 135-145 [facility] Internal Medicine Work Phone: Comment on above: PATIENT WAS FASTINGP ERFORMED BY: CB [facility] Dleeco0431 [facility] [id number] Urea nitrogen [Mass/Vol] 11 mg/dL Normal 5-26 [facility] Internal Medicine Work Phone: Comment on above: PATIENT WAS FASTINGP ERFORMED BY: CB [facility] Wzmqah3164 [facility] [id number] Urea nitrogen/Creatinine [Mass ratio] 9 mg/mg Normal 8-27 [facility] Internal Medicine Work Phone: Comment on above: PATIENT WAS FASTINGP ERFORMED BY: LARON [facility] Noqyms1398 [facility] [id number] MICROALBUMINOrdered By: Andie Erazo on 01-04-2009 Albumin DL <= 20 mg/L (U) [Mass/Vol] 25.9 ug/mL Abnormal 0.0-17.0 [facility] Work Phone: Comment on above: PATIENT WAS FASTINGP ERFORMED BY: CB [facility] Pyqfdl9041 [facility] [place] [id number] Albumin/Creatinine DL <= 20 mg/L (U) [Mass ratio] 15.3 {ug/mg_creat} Normal 0.0-30.0 [facility] Work Phone: Comment on above: PATIENT WAS FASTINGP ERFORMED BY: CB [facility] Voudhc5411 [facility] [id number] Creatinine (U) [Mass/Vol] 169.4 mg/dL Normal 22.0-328.0 [facility] Work Phone: Comment on above: PATIENT WAS FASTINGP ERFORMED BY: [facility] Qhushg7895 [facility] [id number] TSH ([id number])Ordered By: Andie Erazo on 01-04-2009 TSH Qn 1.340 {uIU/mL} Normal 0.450-4.[address] [facility] Internal Medicine Work Phone: Comment on above: PATIENT WAS FASTINGP ERFORMED BY: [facility] Emxmfx6217 [facility] [id number] Vital Signs Date Time Vital Sign Value Performing Clinician Facility 12-13-2024 08:20-0400 Body mass index (BMI) [Ratio] 30.4 kg/m2 Dr. Reema Myers MD Work Phone: [facility] 12-13-2024 08:20-0400 Body temperature 97.4 [degF] Dr. Reema Myers MD Work Phone: [facility] 12-13-2024 08:20-0400 Body weight 104.[address] Reema Myers MD Work Phone: [facility] 12-13-2024 08:20-0400 Diastolic blood pressure 64 mm[Hg] Dr. Reema Myers MD Work Phone: [facility] 12-13-2024 08:20-0400 Heart rate 74 /min Dr. Reema Myers MD Work Phone: [facility] 12-13-2024 08:20-0400 Respiratory rate 16 /min Dr. Reema Myers MD Work Phone: [facility] 12-13-2024 08:20-0400 SaO2% (BldA) [Mass fraction] 93 % Dr. Reema Myers MD Work Phone: [facility] 12-13-2024 08:20-0400 Systolic blood pressure 95 mm[Hg] Dr. Reema Myers MD Work Phone: [facility] 08-30-2024 14:04-0500 Body height 185.[address] Reema Myers MD Work Phone: [facility] 08-30-2024 14:03-0500 Body mass index (BMI) [Ratio] 31.4 kg/m2 Dr. Reema Myers MD Work Phone: [facility] 08-30-2024 14:03-0500 Body temperature 97.8 [degF] Dr. Reema Myers MD Work Phone: [facility] 08-30-2024 14:03-0500 Body weight 107.[address] Reema Myers MD Work Phone: [facility] 08-30-2024 14:03-0500 Diastolic blood pressure 72 mm[Hg] Dr. Reema Myers MD Work Phone: [facility] 08-30-2024 14:03-0500 Heart rate 99 /min Dr. Reema Myers MD Work Phone: [facility] 08-30-2024 14:03-0500 Respiratory rate 16 /min Dr. Reema Myers MD Work Phone: [facility] 08-30-2024 14:03-0500 SaO2% (BldA) [Mass fraction] 93 % Dr. Reema Myers MD Work Phone: [facility] 08-30-2024 14:03-0500 Systolic blood pressure 110 mm[Hg] Dr. Reema Myers MD Work Phone: [facility] 11-06-2023 16:04-0400 Body temperature 98.6 [degF] Dr. Reema Myers Work Phone: [facility] 11-06-2023 16:04-0400 Diastolic blood pressure 76 mm[Hg] Dr. Reema Myers Work Phone: [facility] 11-06-2023 16:04-0400 Heart rate 80 /min Dr. Reema Myers Work Phone: [facility] 11-06-2023 16:04-0400 Respiratory rate 18 /min Dr. Reeam Myers Work Phone: [facility] 11-06-2023 16:04-0400 SaO2% (BldA) [Mass fraction] 98 % Dr. Reema Myers Work Phone: [facility] 11-06-2023 16:04-0400 Systolic blood pressure 119 mm[Hg] Dr. Reema Myers Work Phone: [facility] 11-05-2023 15:19-0400 Body height 185.[address] Reema Myers Work Phone: [facility] 11-05-2023 15:19-0400 Body weight [address] Reema Myers Work Phone: [facility] 11-05-2023 08:04-0400 Body height 185.[address] Reema Myers Work Phone: [facility] 11-05-2023 08:04-0400 Body mass index (BMI) [Ratio] 31.6 kg/m2 Dr. Reema Myers Work Phone: [facility] 11-05-2023 08:04-0400 Body weight [address] Reema Myers Work Phone: [facility] 11-05-2023 07:58-0400 Body temperature 97.6 [degF] Dr. Reema Myers Work Phone: [facility] 11-05-2023 07:58-0400 Diastolic blood pressure 71 mm[Hg] Dr. Reema Myers Work Phone: [facility] 11-05-2023 07:58-0400 Heart rate 63 /min Dr. Reema Myers Work Phone: [facility] 11-05-2023 07:58-0400 Respiratory rate 18 /min Dr. Reema Myers Work Phone: [facility] 11-05-2023 07:58-0400 SaO2% (BldA) [Mass fraction] 98 % Dr. Reema Myers Work Phone: [facility] 11-05-2023 07:58-0400 Systolic blood pressure 113 mm[Hg] Dr. Reema Myers Work Phone: [facility] 11-04-2023 21:38-0400 Inhaled oxygen flow rate 2 L/min Dr. Reema Myers Work Phone: [facility] 11-04-2023 17:30-0400 Body temperature 97.9 [degF] Dr. Reema Myers Work Phone: [facility] 11-04-2023 17:30-0400 Diastolic blood pressure 58 mm[Hg] Dr. Reema Myers Work Phone: [facility] 11-04-2023 17:30-0400 Heart rate 65 /min Dr. Reema Myers Work Phone: [facility] 11-04-2023 17:30-0400 Respiratory rate 18 /min Dr. Reema Myers Work Phone: [facility] 11-04-2023 17:30-0400 SaO2% (BldA) [Mass fraction] 98 % Dr. Reema Myers Work Phone: [facility] 11-04-2023 17:30-0400 Systolic blood pressure 90 mm[Hg] Dr. Reema Myers Work Phone: [facility] 11-04-2023 14:58-0400 Body mass index (BMI) [Ratio] 22.3 kg/m2 Dr. Reema Myers Work Phone: [facility] 11-04-2023 14:58-0400 Body weight 76.[address] Reema Myers Work Phone: [facility] 11-04-2023 12:16-0400 Body height 185.[address] Reema Myers Work Phone: [facility] 10-20-2023 09:07-0400 Body temperature 96.7 [degF] Dr. Reema Myers Work Phone: [facility] 10-20-2023 09:07-0400 Diastolic blood pressure 67 mm[Hg] Dr. Reema Myers Work Phone: [facility] 10-20-2023 09:07-0400 Heart rate 72 /min Dr. Reema Myers Work Phone: [facility] 10-20-2023 09:07-0400 Respiratory rate 16 /min Dr. Reema Myers Work Phone: [facility] 10-20-2023 09:07-0400 SaO2% (BldA) [Mass fraction] 94 % Dr. Reema Myers Work Phone: [facility] 10-20-2023 09:07-0400 Systolic blood pressure 108 mm[Hg] Dr. Reema Myers Work Phone: [facility] 10-20-2023 07:54-0400 Body height 185.[address] Reema Myers Work Phone: [facility] 10-20-2023 07:54-0400 Body mass index (BMI) [Ratio] 31.1 kg/m2 Dr. Reema Myers Work Phone: [facility] 10-20-2023 07:54-0400 Body weight [address] Reema Myers Work Phone: [facility] 09-29-2023 13:59-0400 Body height 185.[address] Reema Myers Work Phone: [facility] 09-29-2023 13:59-0400 Body mass index (BMI) [Ratio] 32.3 kg/m2 Dr. Reema Myers Work Phone: [facility] 09-29-2023 13:59-0400 Body weight 111.[address] Reema Myers Work Phone: [facility] 09-29-2023 13:59-0400 Diastolic blood pressure 67 mm[Hg] Dr. Reema Myers Work Phone: [facility] 09-29-2023 13:59-0400 Heart rate 73 /min Dr. Reema Myers Work Phone: [facility] 09-29-2023 13:59-0400 Respiratory rate 17 /min Dr. Reema Myers Work Phone: [facility] 09-29-2023 13:59-0400 SaO2% (BldA) [Mass fraction] 95 % Dr. Reema Myers Work Phone: [facility] 09-29-2023 13:59-0400 Systolic blood pressure 101 mm[Hg] Dr. Reema Myers Work Phone: [facility] 08-13-2023 08:29-0500 Body height 185.[address] Reema Myers Work Phone: [facility] 08-13-2023 08:29-0500 Body mass index (BMI) [Ratio] 30.7 kg/m2 Dr. Reema Myers Work Phone: [facility] 08-13-2023 08:29-0500 Body temperature 97.8 [degF] Dr. Reema Myers Work Phone: [facility] 08-13-2023 08:29-0500 Body weight 105.[address] Reema Myers Work Phone: [facility] 08-13-2023 08:29-0500 Diastolic blood pressure 83 mm[Hg] Dr. Reema Myers Work Phone: [facility] 08-13-2023 08:29-0500 Heart rate 76 /min Dr. Reema Myers Work Phone: [facility] 08-13-2023 08:29-0500 Respiratory rate 18 /min Dr. Reema Myers Work Phone: [facility] 08-13-2023 08:29-0500 SaO2% (BldA) [Mass fraction] 95 % Dr. Reema Myers Work Phone: [facility] 08-13-2023 08:29-0500 Systolic blood pressure 124 mm[Hg] Dr. Reema Myers Work Phone: [facility] 07-01-2023 11:33-0500 Body height 185.[address] Reema Myers Work Phone: [facility] 07-01-2023 11:33-0500 Body mass index (BMI) [Ratio] 29.9 kg/m2 Dr. Reema Myers Work Phone: [facility] 07-01-2023 11:33-0500 Body temperature 96.9 [degF] Dr. Reema Myers Work Phone: [facility] 07-01-2023 11:33-0500 Body weight 103.[address] Reema Myers Work Phone: [facility] 07-01-2023 11:33-0500 Diastolic blood pressure 68 mm[Hg] Dr. Reema Myers Work Phone: [facility] 07-01-2023 11:33-0500 Heart rate 84 /min Dr. Reema Myers Work Phone: [facility] 07-01-2023 11:33-0500 Respiratory rate 18 /min Dr. Reema Myers Work Phone: [facility] 07-01-2023 11:33-0500 SaO2% (BldA) [Mass fraction] 94 % Dr. Reema Myers Work Phone: [facility] 07-01-2023 11:33-0500 Systolic blood pressure 107 mm[Hg] Dr. Reema Myers Work Phone: [facility] 06-29-2023 12:40-0500 Body height 185.[address] Reema Myers Work Phone: [facility] 06-29-2023 12:40-0500 Body weight 99.[address] Reema Myers Work Phone: [facility] 06-29-2023 12:40-0500 Heart rate 77 /min Dr. Reema Myers Work Phone: [facility] 06-29-2023 12:40-0500 SaO2% (BldA) [Mass fraction] 94 % Dr. Reema Myers Work Phone: [facility] 02-03-2023 18:23-0400 Body height 185.[address] Reema Myers Work Phone: [facility] 11-26-2022 08:58-0400 Body weight 106.[address] Reema Myers Work Phone: [facility] 11-26-2022 08:58-0400 Diastolic blood pressure 73 mm[Hg] Dr. Reema Myers Work Phone: [facility] 11-26-2022 08:58-0400 Heart rate 79 /min Dr. Reema Myers Work Phone: [facility] 11-26-2022 08:58-0400 Respiratory rate 24 /min Dr. Reema Myers Work Phone: [facility] 11-26-2022 08:58-0400 Systolic blood pressure 113 mm[Hg] Dr. Reema Myers Work Phone: [facility] 05-27-2022 10:42-0500 Body height 185.[address] Reema Myers Work Phone: [facility] Work Phone: 05-27-2022 10:42-0500 Body weight 108.[address] Reema Myers Work Phone: [facility] Work Phone: 05-26-2022 08:04-0500 Body mass index (BMI) [Ratio] 31.5 kg/m2 Dr. Reema Myers Work Phone: [facility] Work Phone: 05-06-2022 10:43-0500 Body height 185.[address] Reema Myers Work Phone: [facility] Work Phone: 05-06-2022 10:43-0500 Body weight 108.[address] Reema Myers Work Phone: [facility] Work Phone: 05-05-2022 08:53-0500 Body mass index (BMI) [Ratio] 31.5 kg/m2 Dr. Reema Myers Work Phone: [facility] Work Phone: 04-09-2022 15:50-0400 Body mass index (BMI) [Ratio] 31.5 kg/m2 Dr. Reema Myers Work Phone: [facility] Work Phone: 04-09-2022 15:50-0400 Body weight 108.[address] Reema Myers Work Phone: [facility] Work Phone: 04-09-2022 15:50-0400 Diastolic blood pressure 83 mm[Hg] Dr. Reema Myers Work Phone: [facility] Work Phone: 04-09-2022 15:50-0400 Heart rate 73 /min Dr. Reema Myers Work Phone: [facility] Work Phone: 04-09-2022 15:50-0400 Respiratory rate 18 /min Dr. Reema Myers Work Phone: [facility] Work Phone: 04-09-2022 15:50-0400 SaO2% (BldA) [Mass fraction] 95 % Dr. Reema Myers Work Phone: [facility] Work Phone: 04-09-2022 15:50-0400 Systolic blood pressure 131 mm[Hg] Dr. Reema Myers Work Phone: [facility] Work Phone: 02-09-2022 11:24-0400 Diastolic blood pressure 80 mm[Hg] Dr. Reema Myers Work Phone: [facility] Work Phone: 02-09-2022 11:24-0400 Heart rate 81 /min Dr. Reema Myers Work Phone: [facility] Work Phone: 02-09-2022 11:24-0400 Respiratory rate 18 /min Dr. Reema Myers Work Phone: [facility] Work Phone: 02-09-2022 11:24-0400 Systolic blood pressure 126 mm[Hg] Dr. Reema Myers Work Phone: [facility] Work Phone: 02-02-2022 10:58-0400 Body height 185.[address] Reema Myers Work Phone: [facility] Work Phone: 02-02-2022 10:58-0400 Body weight 106.[address] Reema Myers Work Phone: [facility] Work Phone: 01-30-2022 08:38-0400 Body mass index (BMI) [Ratio] 30.9 kg/m2 Dr. Reema Myers Work Phone: [facility] Work Phone: 01-26-2022 15:14-0400 Body mass index (BMI) [Ratio] 31 kg/m2 Dr. Reema Myers Work Phone: [facility] Work Phone: 01-26-2022 15:14-0400 Body weight 106.[address] Reema Myers Work Phone: [facility] Work Phone: 01-26-2022 15:14-0400 Diastolic blood pressure 62 mm[Hg] Dr. Reema Myers Work Phone: [facility] Work Phone: 01-26-2022 15:14-0400 Heart rate 76 /min Dr. Reema Myers Work Phone: [facility] Work Phone: 01-26-2022 15:14-0400 Respiratory rate 16 /min Dr. Reema Myers Work Phone: [facility] Work Phone: 01-26-2022 15:14-0400 Systolic blood pressure 108 mm[Hg] Dr. Reema Myers Work Phone: [facility] Work Phone: 10-31-2021 14:54-0400 Body mass index (BMI) [Ratio] 31.5 kg/m2 Dr. Reema Myers Work Phone: [facility] Work Phone: 10-31-2021 14:54-0400 Body weight 108.[address] Reema Myers Work Phone: [facility] Work Phone: 10-31-2021 14:54-0400 Diastolic blood pressure 77 mm[Hg] Dr. Reema Myers Work Phone: [facility] Work Phone: 10-31-2021 14:54-0400 Heart rate 85 /min Dr. Reema Myers Work Phone: [facility] Work Phone: 10-31-2021 14:54-0400 Respiratory rate 18 /min Dr. Reema Myers Work Phone: [facility] Work Phone: 10-31-2021 14:54-0400 SaO2% (BldA) [Mass fraction] 95 % Dr. Reema Myers Work Phone: [facility] Work Phone: 10-31-2021 14:54-0400 Systolic blood pressure 121 mm[Hg] Dr. Reema Myers Work Phone: [facility] Work Phone: 10-31-2021 14:54-0400 Body height 185.[address] Reema Myers Work Phone: [facility] Work Phone: 10-31-2021 14:54-0400 Body mass index (BMI) [Ratio] 31.5 kg/m2 Dr. Reema Myers Work Phone: [facility] Work Phone: 10-31-2021 14:54-0400 Body weight 108.[address] Reema Myers Work Phone: [facility] Work Phone: 10-31-2021 14:54-0400 Diastolic blood pressure 77 mm[Hg] Dr. Reema Myers Work Phone: [facility] Work Phone: 10-31-2021 14:54-0400 Heart rate 85 /min Dr. Reema Myers Work Phone: [facility] Work Phone: 10-31-2021 14:54-0400 Respiratory rate 18 /min Dr. Reema Myers Work Phone: [facility] Work Phone: 10-31-2021 14:54-0400 SaO2% (BldA) [Mass fraction] 95 % Dr. Reema Myers Work Phone: [facility] Work Phone: 10-31-2021 14:54-0400 Systolic blood pressure 121 mm[Hg] Dr. Reema Myers Work Phone: [facility] Work Phone: 05-20-2015 10:55-0500 BMI (Body Mass Index) 32.34 kg/m2 Olga Spears [facility] Work Phone: 05-20-2015 10:55-0500 Body Temperature 97.6 [degF] Olga Spears [facility] Work Phone: Comment on above: Method: Oral 05-20-2015 10:55-0500 Body weight 104.[address] Work Phone: 05-20-2015 10:55-0500 BP Diastolic 70 mm[Hg] Olga Spears [facility] Work Phone: Comment on above: Patient Position: Sitting; Cuff Location : Left Arm; Cuff Size: Large 05-20-2015 10:55-0500 BP Systolic 115 mm[Hg] Olga Spears [facility] Work Phone: Comment on above: Patient Position: Sitting; Cuff Location : Left Arm; Cuff Size: Large 05-20-2015 10:55-0500 BSA (Body Surface Area) 2.[address] [facility] Work Phone: 05-20-2015 10:55-0500 Height 179.[address] Work Phone: 05-20-2015 10:55-0500 Pulse (Heart Rate) 57 /min Olga Spears [facility] Work Phone: Comment on above: Pattern: Regular 05-20-2015 10:55-0500 Pulse Oximetry 96 % Olga Spears [facility] Work Phone: Comment on above: Room air 05-20-2015 10:55-0500 Respiratory Rate 18 /min Olga Spears [facility] Work Phone: Comment on above: Pattern: Unlabored 01-16-2015 15:15-0400 BMI (Body Mass Index) 33.18 kg/m2 Olga Spears [facility] Work Phone: 01-16-2015 15:15-0400 Body Temperature 97.9 [degF] Olga Spears [facility] Work Phone: Comment on above: Method: Temporal 01-16-2015 15:15-0400 Body weight 107.[address] Work Phone: 01-16-2015 15:15-0400 BP Diastolic 62 mm[Hg] Olga Spears [facility] Work Phone: Comment on above: Patient Position: Sitting; Cuff Location : Left Arm; Cuff Size: Standard 01-16-2015 15:15-0400 BP Systolic 132 mm[Hg] Olga Spears [facility] Work Phone: Comment on above: Patient Position: Sitting; Cuff Location : Left Arm; Cuff Size: Standard 01-16-2015 15:15-0400 BSA (Body Surface Area) 2.[address] Work Phone: 01-16-2015 15:15-0400 Height 179.[address] Work Phone: 01-16-2015 15:15-0400 Pulse (Heart Rate) 65 /min Olga Spears [facility] Work Phone: Comment on above: Pattern: Regular 01-16-2015 15:15-0400 Pulse Oximetry 96 % Olga Spears [facility] Work Phone: Comment on above: Room air 01-16-2015 15:15-0400 Respiratory Rate 18 /min Olga Spears [facility] Work Phone: Comment on above: Pattern: Unlabored 07-18-2014 12:04-0500 BMI (Body Mass Index) 33.34 kg/m2 Olga Spears [facility] Work Phone: Comment on above: hearing impairedhas an eye doc but don't know the name DR. Carr 07-18-2014 12:04-0500 Body Temperature 97.3 [degF] Olga Spears [facility] Work Phone: Comment on above: Method: Oral hearing impairedhas an eye doc but don't know the name DR. Carr 07-18-2014 12:04-0500 Body weight 107.[address] Work Phone: Comment on above: hearing impairedhas an eye doc but don't know the name DR. Carr 07-18-2014 12:04-0500 BP Diastolic 72 mm[Hg] Olga Spears [facility] Work Phone: Comment on above: Patient Position: Sitting; Cuff Location : Left Arm; Cuff Size: Large hearing impairedhas an eye doc but don't know the name DR. Carr 07-18-2014 12:04-0500 BP Systolic 110 mm[Hg] Olga Perezon [facility] Work Phone: Comment on above: Patient Position: Sitting; Cuff Location : Left Arm; Cuff Size: Large hearing impairedhas an eye doc but don't know the name DR. Carr 07-18-2014 12:04-0500 BSA (Body Surface Area) 2.[address] [facility] Work Phone: Comment on above: hearing impairedhas an eye doc but don't know the name DR. Carr 07-18-2014 12:04-0500 Height 179.[address] [facility] Work Phone: Comment on above: hearing impairedhas an eye doc but don't know the name DR. Carr 07-18-2014 12:04-0500 Pulse (Heart Rate) 50 /min Olga Tory [facility] Work Phone: Comment on above: Pattern: Regular hearing impairedhas an eye doc but don't know the name DR. Carr 07-18-2014 12:04-0500 Pulse Oximetry 97 % Olga Tory [facility] Work Phone: Comment on above: Room air hearing impairedhas an eye doc but don't know the name DR. Carr 07-18-2014 12:04-0500 Respiratory Rate 18 /min Olga Tory [facility] Work Phone: Comment on above: Pattern: Unlabored hearing impairedhas an eye doc but don't know the name DR. Carr 04-07-2013 [id number] BMI (Body Mass Index) 32.31 kg/m2 Olga Tory [facility] Work Phone: 04-07-2013 [id number] Body weight 104.[address] Work Phone: 04-07-2013 10:31-0400 BP Diastolic 82 mm[Hg] Olga Spears [facility] Work Phone: Comment on above: Patient Position: Sitting; Cuff Location : Left Arm; Cuff Size: Large 04-07-2013 10:31-0400 BP Systolic 120 mm[Hg] Olga Spears [facility] Work Phone: Comment on above: Patient Position: Sitting; Cuff Location : Left Arm; Cuff Size: Large 04-07-2013 10:31-0400 BSA (Body Surface Area) 2.[address] Work Phone: 04-07-2013 10:31-0400 Height 179.[address] Work Phone: 04-07-2013 10:31-0400 Pulse (Heart Rate) 53 /min Olga Spears [facility] Work Phone: Comment on above: Pattern: Regular 04-07-2013 10:31-0400 Pulse Oximetry 95 % Olga Spears [facility] Work Phone: Comment on above: Room air 04-07-2013 10:31-0400 Respiratory Rate 18 /min Olga Spears [facility] Work Phone: Comment on above: Pattern: Unlabored 10-04-2012 09:34-0400 BMI (Body Mass Index) 32.75 kg/m2 Olga Spears [facility] Work Phone: 10-04-2012 09:34-0400 Body Temperature 97.8 [degF] Olga Spears [facility] Work Phone: Comment on above: Method: Oral 10-04-2012 09:34-0400 Body weight 105.[address] Work Phone: 10-04-2012 09:34-0400 BP Diastolic 62 mm[Hg] Olga Spears [facility] Work Phone: Comment on above: Patient Position: Sitting; Cuff Location : Left Arm; Cuff Size: Large 10-04-2012 09:34-0400 BP Systolic 122 mm[Hg] Olga Spears [facility] Work Phone: Comment on above: Patient Position: Sitting; Cuff Location : Left Arm; Cuff Size: Large 10-04-2012 09:34-0400 BSA (Body Surface Area) 2.[address] Work Phone: 10-04-2012 09:34-0400 [facility]: 10-04-2012 09:34-0400 Pulse (Heart Rate) 64 /min Olga Spears [facility] Work Phone: Comment on above: Pattern: Regular 10-04-2012 09:34-0400 Respiratory Rate 20 /min Olga Spears [facility] Work Phone: Comment on above: Pattern: Unlabored 02-05-2012 09:52-0400 BMI (Body Mass Index) 31.6 kg/m2 Olga Spears [facility] Work Phone: 02-05-2012 09:52-0400 Body weight 102.[address] Work Phone: 02-05-2012 09:52-0400 BP Diastolic 78 mm[Hg] Olga Spears [facility] Work Phone: Comment on above: Patient Position: Sitting; Cuff Location : Left Arm; Cuff Size: Large 02-05-2012 09:52-0400 BP Systolic 110 mm[Hg] Olga Spears [facility] Work Phone: Comment on above: Patient Position: Sitting; Cuff Location : Left Arm; Cuff Size: Large 02-05-2012 09:52-0400 BSA (Body Surface Area) 2.[address] [facility] Work Phone: 02-05-2012 09:52-0400 Height 179.[address] Work Phone: 02-05-2012 09:52-0400 Pulse (Heart Rate) 60 /min Olga Spears [facility] Work Phone: Comment on above: Pattern: Regular 02-05-2012 09:52-0400 Respiratory Rate 16 /min Olga Spears [facility] Work Phone: Comment on above: Pattern: Unlabored 06-12-2011 11:11-0500 BMI (Body Mass Index) 31.68 kg/m2 Olga Spears [facility] Work Phone: 06-12-2011 11:11-0500 Body Temperature 97.9 [degF] Olga Spears [facility] Work Phone: Comment on above: Method: Oral 06-12-2011 11:11-0500 Body weight 102.[address] Work Phone: 06-12-2011 11:11-0500 BP Diastolic 80 mm[Hg] Olga Spears [facility] Work Phone: Comment on above: Patient Position: Sitting; Cuff Location : Left Arm; Cuff Size: Large 06-12-2011 11:11-0500 BP Systolic 124 mm[Hg] Olga Separs [facility] Work Phone: Comment on above: Patient Position: Sitting; Cuff Location : Left Arm; Cuff Size: Large 06-12-2011 11:11-0500 BSA (Body Surface Area) 2.[address] Work Phone: 06-12-2011 11:11-0500 Height 179.[address] [facility] Work Phone: 06-12-2011 11:11-0500 Pulse (Heart Rate) 72 /min Olga Spears [facility] Work Phone: Comment on above: Pattern: Regular 06-12-2011 11:11-0500 Respiratory Rate 20 /min Olga Spears [facility] Work Phone: Comment on above: Pattern: Unlabored 06-01-2011 13:40-0500 BMI (Body Mass Index) 32.16 kg/m2 Olga [facility] Work Phone: 06-01-2011 13:40-0500 Body Temperature 98.4 [degF] Olga Spears [facility] Work Phone: Comment on above: Method: Oral 06-01-2011 13:40-0500 Body weight 103.[address] Work Phone: 06-01-2011 13:40-0500 BP Diastolic 76 mm[Hg] Olga Spears [facility] Work Phone: Comment on above: Patient Position: Sitting; Cuff Location : Left Arm; Cuff Size: Standard 06-01-2011 13:40-0500 BP Systolic 116 mm[Hg] Olga Spears [facility] Work Phone: Comment on above: Patient Position: Sitting; Cuff Location : Left Arm; Cuff Size: Standard 06-01-2011 13:40-0500 BSA (Body Surface Area) 2.[address] [facility] Work Phone: 06-01-2011 13:40-0500 Height 179.[address] [facility] Work Phone: 06-01-2011 13:40-0500 Pulse (Heart Rate) 62 /min Olga Spears [facility] Work Phone: Comment on above: Pattern: Regular 06-01-2011 13:40-0500 Pulse Oximetry 95 % Olga Spears [facility] Work Phone: Comment on above: Room air 06-01-2011 13:40-0500 Respiratory Rate 17 /min Olga Spears [facility] Work Phone: 10-27-2010 13:45-0400 BMI (Body Mass Index) 32.16 kg/m2 Olga Gardner [facility] Work Phone: 10-27-2010 13:45-0400 Body Temperature 96.5 [degF] Olga Spears [facility] Work Phone: 10-27-2010 13:45-0400 Body weight 103.[address] Work Phone: 10-27-2010 13:45-0400 BP Diastolic 78 mm[Hg] Olga Spears [facility] Work Phone: Comment on above: Patient Position: Sitting; Cuff Location : Left Arm; Cuff Size: Large 10-27-2010 13:45-0400 BP Systolic 120 mm[Hg] Olga Spears [facility] Work Phone: Comment on above: Patient Position: Sitting; Cuff Location : Left Arm; Cuff Size: Large 10-27-2010 13:45-0400 BSA (Body Surface Area) 2.[address] [facility] Work Phone: 10-27-2010 13:45-0400 Height 179.[address] [facility] Work Phone: 10-27-2010 13:45-0400 Pulse (Heart Rate) 68 /min Olga Spears [facility] Work Phone: Comment on above: Pattern: Regular 10-27-2010 13:45-0400 Pulse Oximetry 94 % Olga Spears [facility] Work Phone: Comment on above: Room air 10-27-2010 13:45-0400 Respiratory Rate 20 /min Olga Spears [facility] Work Phone: Comment on above: Pattern: Unlabored 08-28-2010 09:21-0500 BMI (Body Mass Index) 29.72 kg/m2 Olga Spears [facility] Work Phone: 08-28-2010 09:21-0500 Body Temperature 97.2 [degF] Olga Spears [facility] Work Phone: Comment on above: Method: Oral 08-28-2010 09:21-0500 Body weight 102.[address] [facility] Work Phone: 08-28-2010 09:21-0500 BP Diastolic 78 mm[Hg] Olga Spears [facility] Work Phone: Comment on above: Patient Position: Sitting; Cuff Location : Left Arm; Cuff Size: Large 08-28-2010 09:21-0500 BP Systolic 122 mm[Hg] Olga Spears [facility] Work Phone: Comment on above: Patient Position: Sitting; Cuff Location : Left Arm; Cuff Size: Large 08-28-2010 09:21-0500 BSA (Body Surface Area) 2.[address] [facility] Work Phone: 08-28-2010 09:21-0500 Height 185.[address] [facility] Work Phone: 08-28-2010 09:21-0500 Pulse (Heart Rate) 60 /min Olga Spears [facility] Work Phone: Comment on above: Pattern: Regular 08-28-2010 09:21-0500 Respiratory Rate 18 /min Olga Spears [facility] Work Phone: Comment on above: Pattern: Unlabored 04-25-2010 11:07-0400 Body Temperature 97.3 [degF] Olga Spears [facility] Work Phone: Comment on above: Method: Oral 04-25-2010 11:07-0400 Body weight 100.[address] [facility] Work Phone: 04-25-2010 11:07-0400 BP Diastolic 82 mm[Hg] Olga Spears [facility] Work Phone: Comment on above: Patient Position: Sitting; Cuff Location : Left Arm; Cuff Size: Standard 04-25-2010 11:07-0400 BP Systolic 126 mm[Hg] Olga Spears [facility] Work Phone: Comment on above: Patient Position: Sitting; Cuff Location : Left Arm; Cuff Size: Standard 04-25-2010 11:07-0400 Pulse (Heart Rate) 60 /min Olga Spears [facility] Work Phone: Comment on above: Pattern: Regular 04-25-2010 11:07-0400 Respiratory Rate 16 /min Olga Spears [facility] Work Phone: Comment on above: Pattern: Unlabored 01-10-2010 10:37-0400 BMI (Body Mass Index) 29.58 kg/m2 Olga Gardner [facility] Work Phone: 01-10-2010 10:37-0400 Body weight 101.[address] [facility] Work Phone: 01-10-2010 10:37-0400 BP Diastolic 72 mm[Hg] Olga Spears [facility] Work Phone: Comment on above: Patient Position: Sitting; Cuff Location : Left Arm; Cuff Size: Large 01-10-2010 10:37-0400 BP Systolic 128 mm[Hg] Olga Spears [facility] Work Phone: Comment on above: Patient Position: Sitting; Cuff Location : Left Arm; Cuff Size: Large 01-10-2010 10:37-0400 BSA (Body Surface Area) 2.[address] [facility] Work Phone: 01-10-2010 10:37-0400 Height 185.[address] [facility] Work Phone: 01-10-2010 10:37-0400 Pulse (Heart Rate) 64 /min Olga Spears [facility] Work Phone: Comment on above: Pattern: Regular 01-10-2010 10:37-0400 Respiratory Rate 20 /min Olga Spears [facility] Work Phone: Comment on above: Pattern: Unlabored 10-25-2009 09:57-0400 BMI (Body Mass Index) 29.5 kg/m2 Olga Gardner [facility] Work Phone: 10-25-2009 09:57-0400 Body weight 101.41 kg Olga Spears [facility] Internal Medicine Work Phone: 10-25-2009 09:57-0400 BP Diastolic 82 mm[Hg] Olga Spears [facility] Internal Medicine Work Phone: Comment on above: Patient Position: Sitting; Cuff Location : Left Arm; Cuff Size: Large 10-25-2009 09:57-0400 BP Systolic 122 mm[Hg] Olga Spears [facility] Internal Medicine Work Phone: Comment on above: Patient Position: Sitting; Cuff Location : Left Arm; Cuff Size: Large 10-25-2009 09:57-0400 BSA (Body Surface Area) 2.[address] Internal Medicine Work Phone: 10-25-2009 09:57-0400 Height 185.[address] Internal Medicine Work Phone: 10-25-2009 09:57-0400 Pulse (Heart Rate) 60 /min Olga Spears [facility] Internal Medicine Work Phone: Comment on above: Pattern: Regular 10-25-2009 09:57-0400 Respiratory Rate 20 /min Olga Spears [facility] Internal Medicine Work Phone: Comment on above: Pattern: Unlabored 04-25-2009 10:36-0400 BMI (Body Mass Index) 30.09 kg/m2 Olga Spears [facility] Internal Medicine Work Phone: 04-25-2009 10:36-0400 Body weight 103.[address] Internal Medicine Work Phone: 04-25-2009 10:36-0400 BP Diastolic 82 mm[Hg] Olga Spears [facility] Internal Medicine Work Phone: Comment on above: Patient Position: Sitting; Cuff Location : Left Arm; Cuff Size: Standard 04-25-2009 10:36-0400 BP Systolic 128 mm[Hg] [facility]: Comment on above: Patient Position: Sitting; Cuff Location : Left Arm; Cuff Size: Standard 04-25-2009 10:36-0400 BSA (Body Surface Area) 2.[address] Internal Medicine Work Phone: 04-25-2009 10:36-0400 Head Circumference 0 [facility]: 04-25-2009 10:36-0400 Height 185.[address] Internal Medicine Work Phone: 04-25-2009 10:36-0400 Pulse (Heart Rate) 60 /min Olga Spears [facility] Internal Medicine Work Phone: Comment on above: Pattern: Regular 04-25-2009 10:36-0400 Respiratory Rate 18 /min Olga Spears [facility] Internal Medicine Work Phone: Comment on above: Pattern: Unlabored 03-01-2009 10:56-0400 BMI (Body Mass Index) 29.27 kg/m2 Olga Spears [facility] Internal Medicine Work Phone: 03-01-2009 10:56-0400 Body weight 99.[address] Internal Medicine Work Phone: 03-01-2009 10:56-0400 BP Diastolic 84 mm[Hg] Olga Spears [facility] Internal Medicine Work Phone: Comment on above: Patient Position: Sitting; Cuff Location : Left Arm; Cuff Size: Large 03-01-2009 10:56-0400 BP Systolic 118 mm[Hg] Olga Spears [facility] Internal Medicine Work Phone: Comment on above: Patient Position: Sitting; Cuff Location : Left Arm; Cuff Size: Large 03-01-2009 10:56-0400 BSA (Body Surface Area) 2.[address] Internal Medicine Work Phone: 03-01-2009 10:56-0400 Head Circumference [address] Internal Medicine Work Phone: 03-01-2009 10:56-0400 Height 184.[address] Internal Medicine Work Phone: 03-01-2009 10:56-0400 Pulse (Heart Rate) 64 /min Olga Spears [facility] Internal Medicine Work Phone: Comment on above: Pattern: Regular 03-01-2009 10:56-0400 Respiratory Rate 20 /min Olga Spears [facility] Internal Medicine Work Phone: Comment on above: Pattern: Unlabored 02-22-2009 11:02-0400 BMI (Body Mass Index) 29.27 kg/m2 Olga Spears [facility] Internal Medicine Work Phone: 02-22-2009 11:02-0400 Body weight 99.[address] Internal Medicine Work Phone: 02-22-2009 11:02-0400 BP Diastolic 80 mm[Hg] Olga Spears [facility] Internal Medicine Work Phone: Comment on above: Patient Position: Sitting; Cuff Location : Left Arm; Cuff Size: Large 02-22-2009 11:02-0400 BP Systolic 128 mm[Hg] Olga Spears [facility] Internal Medicine Work Phone: Comment on above: Patient Position: Sitting; Cuff Location : Left Arm; Cuff Size: Large 02-22-2009 11:02-0400 BSA (Body Surface Area) 2.[address] Internal Medicine Work Phone: 02-22-2009 11:02-0400 Head Circumference [address] Internal Medicine Work Phone: 02-22-2009 11:02-0400 Height 184.[address] Internal Medicine Work Phone: 02-22-2009 11:02-0400 Pulse (Heart Rate) 72 /min Olga Spears [facility] Internal Medicine Work Phone: Comment on above: Pattern: Regular 02-22-2009 11:02-0400 Respiratory Rate 20 /min Olga Spears [facility] Internal Medicine Work Phone: Comment on above: Pattern: Unlabored 02-18-2009 12:09-0400 Body weight 100.[address] Internal Medicine Work Phone: 02-18-2009 12:09-0400 BP Diastolic 86 mm[Hg] Olga Spears [facility] Internal Medicine Work Phone: Comment on above: Patient Position: Sitting; Cuff Location : Left Arm; Cuff Size: Large 02-18-2009 12:09-0400 BP Systolic 130 mm[Hg] [facility] Work Phone: Comment on above: Patient Position: Sitting; Cuff Location : Left Arm; Cuff Size: Large 02-18-2009 12:09-0400 Head Circumference 0 cm Olga Spears [facility] Work Phone: 02-18-2009 12:09-0400 Height 0 cm Olga [facility] Work Phone: 02-18-2009 12:09-0400 Pulse (Heart Rate) 68 /min Olga [facility] Work Phone: Comment on above: Pattern: Regular 02-18-2009 12:09-0400 Respiratory Rate 18 /min Olga Spears [facility] Work Phone: Comment on above: Pattern: Unlabored 01-21-2009 09:58-0400 Body weight 100.25 kg Olga Spears [facility] Work Phone: 01-21-2009 09:58-0400 BP Diastolic 94 mm[Hg] Olga [facility] Work Phone: Comment on above: Patient Position: Sitting; Cuff Location : Left Arm; Cuff Size: Standard 01-21-2009 09:58-0400 BP Systolic 136 mm[Hg] Olga [facility] Work Phone: Comment on above: Patient Position: Sitting; Cuff Location : Left Arm; Cuff Size: Standard 01-21-2009 09:58-0400 Head Circumference 0 cm Olga [facility]ars [facility] Work Phone: 01-21-2009 09:58-0400 Height 0 cm Olga [facility] Work Phone: 01-21-2009 09:58-0400 Pulse (Heart Rate) 68 /min Olga [facility] Work Phone: Comment on above: Pattern: Regular 01-21-2009 09:58-0400 Respiratory Rate 16 /min Olga [facility] Work Phone: Comment on above: Pattern: Unlabored 01-04-2009 09:14-0400 Body weight [address] Internal Medicine Work Phone: 01-04-2009 09:14-0400 BP Diastolic 84 mm[Hg] Olga Spears [facility] Internal Medicine Work Phone: Comment on above: Patient Position: Standing; Cuff Locatio n: Left Arm; Cuff Size: Standard 01-04-2009 09:14-0400 BP Systolic 110 mm[Hg] Olga Spears [facility] Internal Medicine Work Phone: Comment on above: Patient Position: Standing; Cuff Locatio n: Left Arm; Cuff Size: Standard 01-04-2009 09:14-0400 Head Circumference 0 [facility]: 01-04-2009 09:14-0400 Height 0 [facility]: 01-04-2009 09:14-0400 Pulse (Heart Rate) 74 /min Olga Spears [facility] Internal Medicine Work Phone: Comment on above: Pattern: Regular 01-04-2009 09:13-0400 Body weight [address] Medicine Work Phone: 01-04-2009 09:13-0400 BP Diastolic 100 mm[Hg] [facility]: Comment on above: Patient Position: Supine; Cuff Location: Left Arm; Cuff Size: Standard Patient Position: Si tting; Cuff Location: Left Arm; Cuff Size: Standard 01-04-2009 09:13-0400 BP Systolic 134 mm[Hg] [facility] Work [facility]: Comment on above: Patient Position: Supine; Cuff Location: Left Arm; Cuff Size: Standard 01-04-2009 09:13-0400 BP Systolic 140 mm[Hg] [facility] Work [facility]: Comment on above: Patient Position: Sitting; Cuff Location : Left Arm; Cuff Size: Standard 01-04-2009 09:13-0400 Head Circumference [address] Medicine Work Phone: 01-04-2009 09:13-0400 Height [address] Work Phone: 01-04-2009 09:13-0400 Pulse (Heart Rate) 64 /min Olga Spears [facility] Work Phone: Comment on above: Pattern: Regular 01-04-2009 09:13-0400 Pulse (Heart Rate) 66 /min Olga Spears [facility] Internal Medicine Work Phone: Comment on above: Pattern: Regular 01-04-2009 09:13-0400 Respiratory Rate 16 /min Olga Spears [facility] Internal Medicine Work Phone: Comment on above: Pattern: Unlabored 07-02-2008 15:59-0500 BMI (Body Mass Index) 29.27 kg/m2 Olga Spears [facility] Internal Medicine Work Phone: 07-02-2008 15:59-0500 Body Temperature 96.9 [degF] Olga Spears [facility] Work Phone: Comment on above: Method: Oral 07-02-2008 15:59-0500 Body weight 99.[address] Medicine Work Phone: 07-02-2008 15:59-0500 BP Diastolic 78 mm[Hg] [facility] Work [facility]: Comment on above: Patient Position: Sitting; Cuff Location : Left Arm; Cuff Size: Large 07-02-2008 15:59-0500 BP Systolic 128 mm[Hg] Olga Spears [facility] Work Phone: Comment on above: Patient Position: Sitting; Cuff Location : Left Arm; Cuff Size: Large 07-02-2008 15:59-0500 BSA (Body Surface Area) 2.[address] Work Phone: 07-02-2008 15:59-0500 Head Circumference 0 cm [facility] Work Phone: 07-02-2008 15:59-0500 Height 184.[address] Work Phone: 07-02-2008 15:59-0500 Pulse (Heart Rate) 64 /min Olga Spears [facility] Internal Medicine Work Phone: Comment on above: Pattern: Regular 07-02-2008 15:59-0500 Respiratory Rate 20 /min Olga Spears [facility] Work Phone: Comment on above: Pattern: Unlabored 09-23-2007 13:21-0400 BMI (Body Mass Index) 29.27 kg/m2 Olga Spears [facility] Internal Medicine Work Phone: 09-23-2007 13:21-0400 Body weight 99.[address] Work Phone: 09-23-2007 13:21-0400 BP Diastolic 82 mm[Hg] Olga Spears [facility] Internal [facility] Work Phone: Comment on above: Patient Position: Sitting; Cuff Location : Right Arm; Cuff Size: Large 09-23-2007 13:21-0400 BP Systolic 128 mm[Hg] [facility] Work [facility]: Comment on above: Patient Position: Sitting; Cuff Location : Right Arm; Cuff Size: Large 09-23-2007 13:21-0400 BSA (Body Surface Area) 2.[address] Internal Medicine Work Phone: 09-23-2007 13:21-0400 Head Circumference [address] Medicine Work Phone: 09-23-2007 13:21-0400 Height 184.[address] Medicine Work Phone: 09-23-2007 13:21-0400 Pulse (Heart Rate) 72 /min Olga Spears [facility] Internal Medicine Work Phone: Comment on above: Pattern: Regular 09-23-2007 13:21-0400 Respiratory Rate 16 /min Olga Spears [facility] Internal Medicine Work Phone: Comment on above: Pattern: Unlabored 09-05-2007 17:14-0400 BMI (Body Mass Index) 29.09 kg/m2 Olga Gardner [facility] Internal Medicine Work Phone: 09-05-2007 17:14-0400 Body Temperature 99.2 [degF] Olga Spears [facility] Internal Medicine Work Phone: Comment on above: Method: Oral 09-05-2007 17:14-0400 Body weight 99.[address] Work Phone: 09-05-2007 17:14-0400 BP Diastolic 76 mm[Hg] Olga Spears [facility] Internal Medicine Work Phone: Comment on above: Patient Position: Sitting; Cuff Location : Left Arm; Cuff Size: Standard 09-05-2007 17:14-0400 BP Systolic 122 mm[Hg] Olga Spears [facility] Internal Medicine Work Phone: Comment on above: Patient Position: Sitting; Cuff Location : Left Arm; Cuff Size: Standard 09-05-2007 17:14-0400 BSA (Body Surface Area) 2.[address] [facility] Internal Medicine Work Phone: 09-05-2007 17:14-0400 Head Circumference [address] Work Phone: 09-05-2007 17:14-0400 Height 184.[address] Internal Medicine Work Phone: 09-05-2007 17:14-0400 Pulse (Heart Rate) 72 /min Olga Spears [facility] Internal Medicine Work Phone: Comment on above: Pattern: Regular 09-05-2007 17:14-0400 Respiratory Rate 20 /min Olga Spears [facility] Internal Medicine Work Phone: Comment on above: Pattern: Unlabored 11-29-2006 14:39-0400 BMI (Body Mass Index) 29.09 kg/m2 [facility] Work Phone: 11-29-2006 14:39-0400 Body Temperature 97.9 [degF] Olga Spears [facility] Internal Medicine Work Phone: Comment on above: Method: Oral 11-29-2006 14:39-0400 Body weight 99.[address] Internal Medicine Work Phone: 11-29-2006 14:39-0400 BP Diastolic 82 mm[Hg] Olga Spears [facility] Internal Medicine Work Phone: Comment on above: Patient Position: Sitting; Cuff Location : Left Arm; Cuff Size: Standard 11-29-2006 14:39-0400 BP Systolic 124 mm[Hg] Olga Spears [facility] Internal Medicine Work Phone: Comment on above: Patient Position: Sitting; Cuff Location : Left Arm; Cuff Size: Standard 11-29-2006 14:39-0400 BSA (Body Surface Area) 2.[address] Internal Medicine Work Phone: 11-29-2006 14:39-0400 Head Circumference [address] Internal Medicine Work Phone: 11-29-2006 14:39-0400 Height 184.[address] Internal Medicine Work Phone: 11-29-2006 14:39-0400 Pulse (Heart Rate) 88 /min Olga Spears [facility] Internal Medicine Work Phone: Comment on above: Pattern: Regular 11-29-2006 14:39-0400 Respiratory Rate 20 /min Olga Spears [facility] Internal Medicine Work Phone: Comment on above: Pattern: Unlabored 10-29-2006 12:04-0400 BMI (Body Mass Index) 29.76 kg/m2 Olga Spears [facility] Internal Medicine Work Phone: 10-29-2006 12:04-0400 Body Temperature 97.9 [degF] Olga Spears [facility] Internal Medicine Work Phone: Comment on above: Method: Oral 10-29-2006 12:04-0400 Body weight 101.61 kg Olga Roberts Internal Medicine Work Phone: 10-29-2006 12:04-0400 BP Diastolic 86 mm[Hg] Olga Spears [facility] Internal Medicine Work Phone: Comment on above: Patient Position: Sitting; Cuff Location : Left Arm; Cuff Size: Standard 10-29-2006 12:04-0400 BP Systolic 160 mm[Hg] Olga Spears [facility] Internal Medicine Work Phone: Comment on above: Patient Position: Sitting; Cuff Location : Left Arm; Cuff Size: Standard 10-29-2006 12:04-0400 BSA (Body Surface Area) 2.[address] Internal Medicine Work Phone: 10-29-2006 12:04-0400 Head Circumference [address] Internal [facility] Work Phone: 10-29-2006 12:04-0400 Height 184.[address] Internal Medicine Work Phone: 10-29-2006 12:04-0400 Pulse (Heart Rate) 68 /min Olga Spaers [facility] Internal [facility] Work Phone: Comment on above: Pattern: Regular 10-29-2006 12:04-0400 Respiratory Rate 16 /min Olga Spears [facility] Internal Medicine Work Phone: Comment on above: Pattern: Unlabored 04-23-2006 13:12-0400 Body Temperature 98.7 [degF] Olga Spears [facility] Internal Medicine Work Phone: Comment on above: Method: Undefined 04-23-2006 13:12-0400 Body weight 99.[address] Internal Medicine Work Phone: 04-23-2006 13:12-0400 BP Diastolic 82 mm[Hg] Olga Spears [facility] Internal Medicine Work Phone: Comment on above: Patient Position: Sitting; Cuff Location : Right Arm; Cuff Size: Standard 04-23-2006 13:12-0400 BP Systolic 118 mm[Hg] Olga Spears [facility] Internal Medicine Work Phone: Comment on above: Patient Position: Sitting; Cuff Location : Right Arm; Cuff Size: Standard 04-23-2006 13:120400 Head Circumference 0 [facility] Work Phone: 04-23-2006 13:120400 Height [address] Work Phone: 04-23-2006 13:12-0400 Pulse (Heart Rate) 72 /[facility] Work Phone: Comment on above: Pattern: Regular 04-23-2006 13:12-0400 Respiratory Rate 16 /min Olga Spears [facility] Internal [facility] Work Phone: Comment on above: Pattern: Undefined Encounters Encounter Date Encounter Type Care Provider Facility Start: 01-04-2025 End: 01-04-[address] Reema Myers MD Work Phone: -Sleep Lab Start: 01-04-2025 End: 01-04-2025 Patient encounter procedure LIUDMILA Sesay -Sleep Lab Work Phone: Start: 01-04-2025 End: 01-04-2025 ambulatory [facility] Facility:[facility] Start: 12-26-2024 ambulatory [facility] Start: 12-26-2024 Non-patient / Non-visit Dr. Matthew Dodd MD -[facility] Start: 12-25-2024 End: 12-25-[address] Reema Myers MD Work Phone: -Cardiovascular Services Start: 12-25-2024 End: 12-25-2024 Patient encounter procedure Rick TOWNSEND -Cardiovascular Services Work Phone: Start: 12-25-2024 End: 12-25-2024 ambulatory [facility] Facility:[facility] Start: 12-25-2024 Non-patient / Non-visit Dr. Matthew Dodd MD -[facility] Start: 12-13-2024 End: 12-13-2024 Patient encounter procedure LIUDMILA Sesay -[place] [facility] Work Phone: Start: 12-13-2024 End: 12-13-[address] Reema Myers MD Work Phone: [place] [facility] Work Phone: Start: 10-23-2024 End: 10-23-2024 Patient encounter procedure Jacqueline Sullivan [employer]-C -Cat Scan [facility] Work Phone: Start: 10-23-2024 End: 10-23-2024 ambulatory [facility] Facility:[facility] Start: 09-26-2024 End: 09-26-2024 Emergency department patient visit [facility] Start: 08-30-[address] Gloria Coleman MD -[facility] Start: 08-30-2024 End: 08-30-[address] Tamie Coleman MD -[facility] Work Phone: Start: 08-30-2024 End: 08-30-2024 ambulatory [facility] Facility:[facility] Start: 08-16-2024 End: 08-16-2024 Patient encounter procedure Buck Larsen PA -Laboratory Work Phone: Start: 08-16-2024 End: 08-16-2024 ambulatory [facility] Start: 08-09-2024 End: [facility] Start: 07-10-2024 ambulatory [facility] Start: 06-15-2024 End: 06-15-2024 ambulatory [facility] Start: 06-06-2024 End: [facility] Start: 05-18-2024 End: [facility] Start: 05-08-2024 End: 05-08-2024 ambulatory [facility] Start: 04-13-2024 ambulatory [facility] Facility: [facility] Start: 04-12-2024 End: 04-12-2024 ambulatory Reema Miedel Facility:[facility] Start: 04-10-2024 End: 04-10-2024 ambulatory Reema Miedel Facility:[facility] Start: 04-04-2024 End: 04-04-2024 ambulatory Reema Miel Facility:[facility] Start: 03-02-2024 End: 03-02-2024 ambulatory Reema Miedel Facility:[facility] Start: 02-10-2024 End: 02-10-2024 ambulatory Reema Miedel Facility:[facility] Start: 02-02-2024 End: 02-02-2024 ambulatory Reema Miedel Facility:[facility] Start: 01-24-2024 End: 01-24-2024 ambulatory Reema Miedel Facility:[facility] Start: 11-06-2023 Non-patient / Non-visit Dr. Reema Myers Work Phone: [facility] Work Phone: Start: 11-05-2023 Non-patient / Non-visit Dr. Reema Myers Work Phone: [facility] Work Phone: Start: 11-05-2023 Non-patient / Non-visit Dr. Reema Myers Work Phone: [facility] Start: 11-04-2023 Non-patient / Non-visit Dr. Reema Myers Work Phone: [facility] Start: 11-04-2023 End: 11-06-2023 Evaluation and management of inpatient Dr. Reema Myers Work Phone: [facility] 3 Work Phone: Start: 11-01-2023 End: 11-01-[address] Reema Myers Work Phone: [facility] Work Phone: Start: 11-01-2023 End: 11-01-[address] Reema Myers Work Phone: [facility]-Sleep Lab Work Phone: Start: 10-21-2023 Non-patient / Non-visit Dr. Reema Myers Work Phone: [facility] Start: 10-21-2023 End: 10-21-[address] Reema Myers Work Phone: [facility] Work Phone: Start: 10-21-2023 End: 10-21-[address] [facility] Start: 10-20-2023 Non-patient / Non-visit Dr. Reema Myers Work Phone: [facility] Start: 10-20-2023 End: 10-20-2023 Admission to same day surgery center Dr. Reema Myers Work Phone: [facility]-Endoscopy Work Phone: Start: 10-20-2023 End: 10-20-[address] Reema Myers Work Phone: [facility] Work Phone: Start: 09-29-2023 End: 09-29-[address] Reema Myers Work Phone: [facility] Work Phone: Start: 09-27-2023 End: 09-27-[address] Reema Myers Work Phone: [facility] Work Phone: Start: 09-27-2023 End: 09-27-[address] Reema Myers Work Phone: [facility]-Sleep Lab Work Phone: Start: 09-17-2023 End: 09-17-[address] Reema Myers Work Phone: [facility] Work Phone: Start: 09-17-2023 End: 09-17-[address] Reema Myers Work Phone: [facility]-Cat Scan, [facility] Work Phone: Start: 09-13-2023 End: 09-13-[address] Reema Myers Work Phone: [facility] Work Phone: Start: 09-13-2023 End: 09-13-[address] Reema Myers Work Phone: [facility]-Laboratory, Specimen Work Phone: Start: 09-10-2023 End: 09-10-[address] Reema Myers Work Phone: [facility] Work Phone: Start: 09-10-2023 End: 09-10-[address] Reema Myers Work Phone: [facility]-Sleep Lab Work Phone: Start: 09-09-2023 End: 09-09-[address] Reema Myers Work Phone: [facility] Work Phone: Start: 09-09-2023 End: 09-09-[address] Reema Myers Work Phone: [facility] Work Phone: Start: 08-20-2023 End: 08-20-[address] Reema Myers Work Phone: [facility] Work Phone: Start: 08-20-2023 End: 08-20-[address] Reema Myers Work Phone: [facility] Work Phone: Start: 08-13-2023 End: 08-13-[address] [facility] Work Phone: Start: 07-09-2023 End: 07-09-[address] Reema Myers Work Phone: [facility] Work Phone: Start: 07-09-2023 End: 07-09-[address] Reema Myers Work Phone: [facility], [facility] Work Phone: Start: 07-01-2023 End: 07-01-[address] [facility] Work Phone: Start: 06-30-2023 Non-patient / Non-visit Dr. Reema Myers Work Phone: [facility] Start: 06-29-2023 End: 06-29-[address] Reema Myers Work Phone: [facility] Work Phone: Start: 06-29-2023 End: 06-29-[address] Reema Myers Work Phone: [facility]Ne[facility] Work Phone: Start: 06-27-2023 Non-patient / Non-visit Dr. Reema Myers Work Phone: [facility] Start: 06-25-2023 End: 06-25-[address] Reema Myers Work Phone: [facility] Work Phone: Start: 06-25-2023 End: 06-25-[address] Reema Myers Work Phone: [facility] Work Phone: Start: 06-24-2023 End: 06-24-[address] Reema Myers Work Phone: [facility] Work Phone: Start: 06-24-2023 End: 06-24-[address] Reema Myers Work Phone: [facility], [facility] Work Phone: Start: 02-04-2023 End: 02-04-[address] Reema Myers Work Phone: [facility] Work Phone: Start: 02-04-2023 End: 02-04-[address] Reema Myers Work Phone: [facility] Work Phone: Start: 02-02-2023 End: 02-02-[address] Reema Myers Work Phone: [facility] Work Phone: Start: 11-26-2022 End: 11-26-[address] Reema Myers Work Phone: [facility] Work Phone: Start: 05-27-2022 Non-patient / Non-visit Dr. Reema Myers Work Phone: [facility] Start: 05-27-2022 End: 05-27-2022 Admission to same day surgery center Dr. Reema Myers Work Phone: [facility] Services/Special Procedures Start: 05-27-2022 End: 05-27-[address] Reema Myers Work Phone: [facility] Work Phone: Start: 05-25-2022 Non-patient / Non-visit Dr. Reema Myers Work Phone: [facility] Start: 05-13-2022 End: 05-13-[address] Reema yMers Work Phone: [facility] Start: 05-06-2022 Non-patient / Non-visit Dr. Reema Myers Work Phone: [facility] Start: 05-06-2022 Non-patient / Non-visit Dr. Reema Myers Work Phone: [facility] Start: 05-06-2022 End: 05-06-2022 Admission to same day surgery center Dr. Reema Myers Work Phone: [facility] Start: 05-06-2022 End: 05-06-[address] Reema Myers Work Phone: [facility] Work Phone: Start: 04-09-2022 End: 04-09-[address] Reema Myers Work Phone: [facility] Start: 02-09-2022 End: 02-09-[address] Reema Myers Work Phone: [facility] Start: 02-02-2022 Non-patient / Non-visit Dr. Reema Myers Work Phone: [facility] Start: 02-02-2022 End: 02-02-2022 Admission to same day surgery center Dr. Reema Myers Work Phone: [facility]Special Procedures Start: 01-26-2022 End: 01-26-[address] Reema Myers Work Phone: [facility] Start: 11-13-2021 Non-patient / Non-visit Dr. Reema Myers Work Phone: [facility] Start: 11-13-2021 End: 11-13-[address] Reema Myers Work Phone: [facility] Start: 10-31-2021 End: 10-31-[address] Reema Myers Work Phone: [facility] Start: 10-30-2021 Non-patient / Non-visit Dr. Reema Myers Work Phone: [facility] Start: 05-20-2015 End: 05-20-2015 Office outpatient visit 25 minutes Olga Spears [facility] Start: 01-18-2015 End: 01-26-2015 Office outpatient visit 5 minutes Olga Spears [facility] Start: 01-16-2015 End: 01-16-2015 Office outpatient visit 25 minutes Olga Roberts [facility] Start: 07-18-2014 End: 07-18-2014 Office outpatient visit 25 minutes Olga Roberts [facility] Start: 04-13-2013 End: 04-13-2013 Phone Encounter Olga Spears [facility] Start: 04-12-2013 End: 04-12-2013 Phone Encounter Olga Roberts [facility] Start: 04-07-2013 End: 04-07-2013 Patient encounter procedure Olga Tory [facility] Start: 10-04-2012 End: 10-04-2012 Patient encounter procedure Olga Tory [facility] Start: 02-05-2012 End: 02-05-2012 Patient encounter procedure Olgaannette Perezon [facility] Start: 06-12-2011 End: 06-12-2011 Patient encounter procedure Olga Tory [facility] Start: 06-01-2011 End: 06-01-2011 Annotation/Addendum Olga Spears [facility] Start: 06-01-2011 End: 06-01-2011 Office outpatient visit [address] [facility] Start: 10-27-2010 End: 10-27-2010 Patient encounter procedure Olga Tory [facility] Start: 08-28-2010 End: 08-28-2010 Patient encounter procedure Olga Tory [facility] Start: 04-25-2010 End: 04-25-2010 Patient encounter procedure Olga Tory [facility] Start: 01-10-2010 End: 01-10-2010 Patient encounter procedure Olga Tory [facility] Start: 10-25-2009 End: 10-25-2009 Patient encounter procedure Olga Tory [facility] Start: 04-25-2009 End: 04-25-2009 Patient encounter procedure Olga Tory [facility] Start: 03-01-2009 End: 03-01-2009 Office outpatient visit [address] [facility] Start: 02-22-2009 End: 02-22-2009 Office outpatient visit [address] [facility] Start: 02-18-2009 End: 02-18-2009 Office outpatient visit [address] [facility] Start: 01-21-2009 End: 01-21-2009 Historical Summary Olga Roberts [facility] Start: 01-21-2009 End: 01-21-2009 Office outpatient visit [address] [facility] Start: 01-04-2009 End: 01-07-2009 Patient encounter procedure Olga Spears [facility] Start: 07-02-2008 End: 07-02-2008 Patient encounter procedure Olga Spears [facility] Start: 09-23-2007 End: 09-23-2007 Office outpatient visit [address] [facility] Start: 09-05-2007 End: 09-05-2007 Patient encounter procedure Olga Spears [facility] Start: 04-12-2007 End: 04-12-2007 Historical Summary Olga Spears [facility] Start: 11-29-2006 End: 11-29-2006 Office outpatient visit [address] [facility] Start: 11-25-2006 End: 11-25-2006 Historical Summary Olag Spears [facility] Start: 10-29-2006 End: 10-31-2006 Office outpatient visit [address] [facility] Start: 04-23-2006 End: 04-23-2006 Office outpatient visit [address] [facility] Start: 03-23-2006 End: 03-23-2006 Historical Summary Olga Spears [facility] Procedures Date Procedure Procedure Detail Performing Clinician Start: 12-25-2024 Cardiovascular stres s test using pharmacologic stress agent Dr. Reema Myers MD Work Phone: Start: 10-23-2024 CT of chest without contrast [...] and Bladder Comments: See Note; NOTES: [facility] Imaging Services [address] [place] [id number] Kidney and Bladder MR#: [id number] Acct: [id number] Name: ANJUM SERRANO Rep #: [id number] : 1945 M 72 From: Roni Hackett DO PCP: Olga Spears DO Status: [facility] CLI Study: Kidney and Bladder Date of Exam: 12/17/17 Exam# [id number] Ordering Dr: Grecia Swain APPLICATION SECURITY ARCHITECT-C STUDY: RENAL ULTRASOUND - COMPLETE REASON FOR [...] CC: Olga Spears DO; Grecia Swain NP Brake Repair Supervisor: Signed Olga Spears Work Phone: Start: 08-31-2015 End: 08-31-2015 Operative Report Comments: See Note; NOTES: [facility] Medical Records Department [address] [place] [address] Operative Report MR#: [id number] Acct: [id number] Name: ANJUM SERRANO Rep #: [id number] : 1945 70 From: Almas Villegas MD PCP: Olga Spears DO Status: [facility] DATE OF SERVICE: 08/30/2015 [...] filled with water-soluble lubricant, dilated to 28 [place]ican and then a 26-[place]ican resectoscopic sheath was inserted. Then, using the [...] condition. Almas Villegas MD T: NTS JOB: [id number] 08/31/15 1157 <Electronically signed by Almas Villegas MD> Date Almas Villegas MD Cosigner Signature (If Indicated): Date CC: Olga Spears DO; Almas Villegas MD Date Dictated: 08/30/151325 Date Transcribed: 08/30/151325 Brake Repair Supervisor: Signed Olga Spears Start: 08-31-2015 End: 08-31-2015 Discharge Instruction Comments: See Note; NOTES: [facility] Medical Records Department [address] [place] [address] Instructions for Home/Discharge Instructions 08/31/15 1150 MR#: [id number] Acct: [id number] Name: ANJUM SERRANO Rep #: [id number] : 1945 70 From: Almas Villegas MD PCP: Olga Spears DO Status: [facility] Discharge Diet: No Restrictions [...] Please Follow Up With: Almas Villegas - [phone] When: CALL SOON FOR AN APPT IN ABOUT 2 WKS, NO CHANGES, ADDITIONS TO HOME MEDS 08/31/15 1154 <Electronically signed by Almas Villegas MD> Date Almas Villegas MD CC: Olga Martini Start: 08-26-2015 End: 08-26-2015 12 lead ECG Comments: See Note; NOTES: [facility] Cardiovascular Services [address] [place] [address] EKG - [facility] 08/23/151424 MR#: [id number] Acct: [id number] Name: ANJUM SERRANO Rep #: [id number] : 1945 70 From: Almas Rodriguez MD Attending Dr: Almas Villegas MD Status: PRE SDC Ordering Dr: Almas Villegas MD Date: 08/23/15 Location: [facility] Sex: M C Admitted: Test Reason : Blood Pressure : / mmHG Vent. Rate : 058 BPM Atrial Rate : 058 BPM P-R Int : 192 ms QRS Dur : 098 ms QT Int : 408 ms P-R-T Axes : 045 066 062 degrees QTc Int : 400 ms Sinus bradycardia Otherwise normal ECG Confirmed by KARI VELASQUEZ, ALMAS ([id number]), editor publications GIDEON MESA ([id number]) on 08/26/2015 1:30:14 PM Referred By: RODOLFO VILLEGAS Confirmed By:ALMAS RODRIGUEZ MD 08/26/15 1330 Date Almas Rodriguez MD CC: Olga Spears DO; Almas Rodriguez MD Date Dictated: 08/23/151424 Date Transcribed: 08/23/151424 Brake Repair Supervisor: Signed Olga Spears Work Phone: Start: 01-16-2015 End: 01-16-2015 Spmtry w/vc expiratory keira w/wo mxml vol vntj _ Olga Spears Work Phone: Comment on above: obtruction present Start: 07-18-2014 End: 07-18-2014 Spmtry w/vc expiratory keira w/wo mxml vol vntj _ Olga Tory Work Phone: Comment on above: mild obstruction - a sx Sigmoidoscopy Sigmoidoscopy Olga espinoza Comment on above: 1997 Plan of Treatment Date Care Activity Detail Author Start: 01-04-2025 [facility] Start: 11-06-2023 Patient discharge [facility] Start: 11-05-2023 Referral to occupati onal therapist [facility] Start: 11-05-2023 Referral to service [facility] Start: 11-05-2023 Colonoscopy Colonoscopy,EG D (Not Applicable) [facility] Start: 11-05-2023 Partial thromboplast in time, activated [facility] Start: 11-05-2023 Prothrombin time [facility] Start: 11-05-2023 Blood chemistry [facility] Start: 11-05-2023 Application of intermittent pneumatic compression device [facility] Start: 11-04-2023 Following clinical pathway protocol [facility] Start: 11-04-2023 Transfusion of blood product [facility] Start: 11-04-2023 Consultation [facility] Start: 11-04-2023 Ambulation without limitation [facility] Start: 11-04-2023 Following clinical pathway protocol [facility] Start: 11-04-2023 Incentive spirometry [facility] Start: 11-04-2023 Inhalation therapy procedure [facility] Start: 11-04-2023 Introduction of urin prosper catheter [facility] Start: 11-04-2023 Taking patient vital signs [facility] Start: 11-04-2023 [facility] Start: 11-04-2023 Administration of bl ood product [facility] Start: 11-04-2023 Leukocyte reduced re d blood cells [facility] Start: 11-04-2023 End: 11-04-2023 [facility] Start: 11-04-2023 Admission procedure [facility] Start: 11-04-2023 End: 11-04-2023 Administration of blood product [facility] Start: 10-20-2023 Colonoscopy w/biopsy single/multiple COLONOSCOPY AND BIOPSY [facility] Start: 10-20-2023 Colsc flx w/rmvl of tumor polyp lesion snare tq COLONOSCOPY W/LESION REMOVAL [facility] Start: 10-20-2023 Egd transoral biopsy single/multiple EGD BIOPSY SINGLE/MULTIPLE [facility] Start: 10-20-2023 Patient discharge [facility] Start: 05-20-2015 Patient Education Flu (Influen za) *: flu shot [facility] Work Phone: Start: 05-20-2015 Provider Instruction s for Treatment [facility] Work Phone: Start: 05-20-2015 Assay of prostate specific antigen total PSA (PROSTATE SPECIFIC ANTIGEN) (V76.44) [facility] Work Phone: Start: 05-20-2015 Lipid panel LIPID PANEL (63736) [facility] Work Phone: Start: 05-20-2015 TSH Qn TSH (74081) [facility] Work Phone: Start: 05-20-2015 Urnls dip stick/tabl et reagent auto microscopy URINALYSIS, W/ MICRO (68793) [facility] Work Phone: Start: 05-20-2015 Urine albumin quantitative MICROALBUMIN: CREATININE RATIO (96833) AND (37106) [facility] Work Phone: Start: 05-20-2015 Comprehensive metabo lic panel METABOLIC PANEL, COMPREHENSIVE (12117) [facility] Work Phone: Start: 05-20-2015 Blood count complete auto&auto difrntl wbc CBC W/AUTO DIFF WBC (54021) [facility] Work Phone: Start: 01-26-2015 Provider Instruction s for Treatment *Colon Cancer Screening [facility] Work Phone: Start: 01-16-2015 TSH Qn TSH (45176) [facility] Work Phone: Start: 01-16-2015 Urnls dip stick/tabl et reagent auto microscopy URINALYSIS, W/ MICRO (39220) [facility] Work Phone: Start: 01-16-2015 Urine albumin quantitative MICROALBUMIN: CREATININE RATIO (43970) AND (31384) [facility] Work Phone: Start: 01-16-2015 Comprehensive metabo lic panel METABOLIC PANEL, COMPREHENSIVE (64975) [facility] Work Phone: Start: 01-16-2015 Lipid panel LIPID PANEL (91359) [facility] Work Phone: Start: 01-16-2015 Blood count complete auto&auto difrntl wbc CBC W/AUTO DIFF WBC (18658) [facility] Work Phone: Start: 01-16-2015 [...] Work Phone: Start: 07-18-2014 TSH Qn TSH (38576) [facility] Work Phone: Start: 07-18-2014 Urnls dip stick/tabl et reagent auto microscopy URINALYSIS, W/ MICRO (84718) [facility] Work Phone: Start: 07-18-2014 Urine albumin quantitative MICROALBUMIN: CREATININE RATIO (39409) AND (64160) [facility] Work Phone: Start: 07-18-2014 Comprehensive metabo lic panel METABOLIC PANEL, COMPREHENSIVE (19939) [facility] Work Phone: Start: 07-18-2014 Lipid panel LIPID PANEL (95765) [facility] Work Phone: Start: 07-18-2014 Blood count complete auto&auto difrntl wbc CBC W/AUTO DIFF WBC (53394) [facility] Work Phone: Start: 07-18-2014 Blood occult fecal h gb deter ia qual feces 1-3 FECAL OCCULT- Tubes sent home (00800) [facility] Work Phone: Start: 07-18-2014 Assay of prostate specific antigen total PSA (PROSTATE SPECIFIC ANTIGEN) (V76.44) [facility] Work Phone: Start: 04-13-2013 PSA TOTAL +%FREE [phone] (14985) PSA TOTAL +%FREE 061399 (36668) [facility] Work Phone: Start: 04-12-2013 Lipid panel Lipid Panel (49734) [facility] Work Phone: Start: 04-07-2013 Patient Education Flu (Influen za) *: flu shot [facility] Work Phone: Start: 04-07-2013 Provider Instruction s for Treatment [facility] Work Phone: Start: 04-07-2013 Blood occult fecal h gb deter ia qual feces 1-3 FECAL OCCULT- Tubes sent home (22493) [facility] Work Phone: Start: 10-04-2012 [...] 11-06-2010 Hepatic function panel HEPATIC FUNCTION PANEL (01273) [facility] Work Phone: Start: 11-06-2010 Lipid panel LIPID PANEL (79803) [facility] Work Phone: Start: 10-27-2010 [...] Work Phone: Start: 04-25-2010 TSH Qn TSH (13315) [facility] Work Phone: Start: 04-25-2010 Urnls dip stick/tabl et reagent auto microscopy URINALYSIS, W/ MICRO (43188) [facility] Work Phone: Start: 04-25-2010 Urine albumin quantitative MICROALBUMIN: CREATININE RATIO (73755) AND (18178) [facility] Work Phone: Start: 04-25-2010 Comprehensive metabo lic panel METABOLIC PANEL, COMPREHENSIVE (87662) [facility] Work Phone: Start: 04-25-2010 Blood count manual c ell count each CBC WITH MANUAL DIFF (82566) [facility] Work Phone: Start: 04-25-2010 Lipid panel LIPID PANEL (28082) [facility] Work Phone: Start: 01-10-2010 Provider Instruction s for Treatment [facility] Work Phone: Start: 01-10-2010 Lipid panel LIPID PANEL (77483) [facility] Work Phone: Comment on above: DO IN 6 MONTHS Start: 10-25-2009 Provider Instruction s for Treatment [facility] Work Phone: Start: 10-25-2009 TSH Qn TSH (50591) [facility] Work Phone: Start: 10-25-2009 Urnls dip stick/tabl et reagent auto microscopy URINALYSIS, W/ MICRO (05799) [facility] Work Phone: Start: 10-25-2009 Urine albumin quantitative MICROALBUMIN: CREATININE RATIO (86138) AND (00911) [facility] Work Phone: Start: 10-25-2009 Comprehensive metabo lic panel METABOLIC PANEL, COMPREHENSIVE (70586) [facility] Work Phone: Start: 10-25-2009 Lipid panel LIPID PANEL (02355) [facility] Work Phone: Start: 10-25-2009 Blood count manual c ell count each CBC WITH MANUAL DIFF (79090) [facility] Work Phone: Start: 04-25-2009 Provider Instruction s for Treatment [facility] Work Phone: Start: 04-25-2009 Hepatic function panel HEPATIC FUNCTION PANEL (32686) [facility] Work Phone: Start: 04-25-2009 Lipid panel LIPID PANEL (09618) [facility] Work Phone: Comment on above: do in 3 months Start: 02-22-2009 Provider Instruction s for Treatment Reviewed Lab [facility] Work Phone: Start: 02-22-2009 Blood gases any combination ph pco2 po2 co2 hco3 BLOOD GAS PH PCO2 PO2 H/CO2 (ABG) (68993) [facility] Work Phone: Start: 07-02-2008 Provider Instruction s for Treatment [facility] Work Phone: Start: 09-23-2007 Provider Instruction s for Treatment [facility] Work Phone: Start: 09-23-2007 TSH Qn TSH (66738) [facility] Work Phone: Start: 09-23-2007 Hepatic function panel HEPATIC FUNCTION PANEL (66050) [facility] Work Phone: Start: 09-23-2007 Lipid panel LIPID PANEL (73461) [facility] Work Phone: Start: 09-05-2007 Provider Instruction s for Treatment [facility] Work Phone: Start: 10-29-2006 Provider Instruction s for Treatment [facility] Work Phone: Start: 10-29-2006 Glucose [Mass/Vol] Glucose, PP /2 Hour (26364) [facility] Work Phone: Start: 04-23-2006 Assay of prostate specific antigen total PSA (PROSTATE SPECIFIC ANTIGEN) (44220) [facility] Work Phone: Start: 04-23-2006 TSH Qn TSH (64880) [facility] Work Phone: Start: 04-23-2006 Lipid panel LIPID PANEL (96192) [facility] Work Phone: Start: 04-23-2006 Hepatic function panel HEPATIC FUNCTION PANEL (18774) [facility] Work Phone: Anion gap measurement [facility] BUN/Creatinine ratio [facility] Calcium [Mass/volume ] in Serum or Plasma [facility] Carbon dioxide, tota l [Moles/volume] in Serum or Plasma [facility] Cardioversion [facility] Work Phone: CBC W Auto Different ial panel - Blood [facility] Chloride [Moles/volu me] in Serum or Plasma [facility] Colonoscopy [facility] Creatinine [Moles/volume] in Serum or Plasma [facility] CT Chest [facility] CT Chest WO contrast [facility] CT Chest WO contrast [facility] Erythrocyte mean corpuscular volume determination [facility] Glucose [Mass/volume ] in Serum or Plasma [facility] Hematocrit [Volume Fraction] of Blood [facility] Hematocrit [Volume Fraction] of Blood [facility] Hemoglobin [Mass/vol ume] in Blood [facility] Hemoglobin [Mass/vol ume] in Blood [facility] INR in Blood by Coagulation assay [facility] Leukocytes [#/volume ] in Blood [facility] Mean corpuscular hemoglobin concentration determination [facility] Mean corpuscular hemoglobin determination [facility] Measurement of renal function [facility] Neutrophil count [facility] Neutrophil percent differential count [facility] Patient referral [facility] Work Phone: Platelets [#/volume] in Blood [facility] Potassium [Moles/vol ume] in Serum or Plasma [facility] Red blood cell count [facility] Red cell distributio n width determination [facility] Sodium [Moles/volume ] in Serum or Plasma [facility] Urea nitrogen [Mass/volume] in Serum or Plasma [facility] Work Phone: [...] Phone: [facility] Work Phone: [facility] Immunizations Immunization Date Immunization Notes Care Provider Fa cili 05-11-2023 Covid (Spikevax) Dr. Reema Myers Work Phone: [facility] 05-11-2023 RSV Adult BiValent (Abrysvo) Dr. Reema Myers Work Phone: [facility] 03-25-2023 Influenza High-Dose Quadrivalent Dr. Reema Myers Work Phone: [facility] 04-22-2022 Covid Pfizer Bivalen t Booster Dr. Reema Myers Work Phone: [facility] 04-07-2022 influenza, injectabl e, quadrivalent, preservative free Dr. Reema Myers Work Phone: [facility] 10-27-2021 Covid (Pfizer) Dr. Reema cervantes Work Phone: [facility] 03-27-2021 Covid (Pfizer) Dr. Reema cervantes Work Phone: [facility] 08-21-2020 Covid (Pfizer) Dr. Reema cervantes Work Phone: [facility] 08-02-2020 Covid (Pfizer) Dr. Reema cervantes Work Phone: [facility] 08-01-2019 Influenza, high dose seasonal Dr. Reema Myers MD Work Phone: [facility] 08-01-2019 influenza, high dose seasonal, preservative-free Dr. Reema Myers Work Phone: [facility] 07-04-2009 novel [id number], preservative-free, injectable Dr. Reema Myers Work Phone: [facility] 03-01-2009 influenza, seasonal, injectable Olga Tory 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 [id number] Unknown Unknown [id number] Unknown [id number] 2.16.8 40.1.617932.3.579.2.462 Unknown [id number] 2.16.8 40.1.921494.3.579.2.462 Unknown [id number] 2.16.8 40.1.025278.3.579.2.462 Unknown [id number] 2.16.8 40.1.860819.3.579.2.462 Unknown [id number] 2.16.8 40.1.298527.3.579.2.462 Unknown [id number] 2.16.8 40.1.180473.3.579.2.462 Unknown [id number] 2.16.8 40.1.121221.3.579.2.462 Unknown [id number] 2.16.8 40.1.681043.3.579.2.462 Unknown [id number] 2.16.8 40.1.925878.3.579.2.462 Unknown [id number] 2.16.8 40.1.973558.3.579.2.462 Unknown [id number] 2.16.8 40.1.700488.3.579.2.462 Unknown [id number] 2.16.8 40.1.682900.3.579.2.462 Unknown [id number] 2.16.8 40.1.700114.3.579.2.462 Unknown [id number] 2.16.8 40.1.606790.3.579.2.462 Unknown [id number] 2.16.8 40.1.621776.3.579.2.462 Unknown [id number] 2.16.8 40.1.349572.3.579.2.462 Unknown [id number] 2.16.8 40.1.421795.3.579.2.462 Unknown [id number] 2.16.8 40.1.075174.3.579.2.462 Unknown [id number] 2.16.8 40.1.410658.3.579.2.462 Unknown [id number] 2.16.8 40.1.268806.3.579.2.462 Unknown [id number] 2.16.8 40.1.481187.3.579.2.462 Unknown [id number] 2.16.8 40.1.616615.3.579.2.462 Unknown [id number] 2.16.8 40.1.943838.3.579.2.462 Unknown [id number] 2.16.8 40.1.016530.3.579.2.462 Social History Date Type Detail Facility Alcohol Use Alcohol Use [facility] Work Phone: Comment on above: Drinks wine, Drinks beer. 1 glass wine with dinner and couple beers a week 6-8 cups coffee qd Self-employed Inactive , lives with spouse Smokes < 1 pack of c igarettes per day, recently fell off the wagon started again 01-04-09 Tobacco use: Tobacco use: [facility] Work Phone: Comment on above: 06/12/11 Start: 10-31-2021 End: 11-04-2023 Tobacco smoking status NHIS Unknown if ever smoked [facility] Start: 05-31-2019 Cigarettes [facility] Start: 1945 Sex Assigned At Male [facility] Start: 08-09-2024 Tobacco smoking stat us AKIS Ex-smoker (finding) [facility] Medical Equipment Procedure Code Equipment Code Equipment Origin al Text Equipment Identifier Dates Blood Sugar Diagnostic (Onetouch Verio Test Strips) strip Start: 07-10-2024 End: 07-10-2024 Blood Sugar Diagnostic (Onetouch Verio Test Strips) strip Start: 07-10-2024 End: 07-10-2024 Blood Sugar Diagnostic (Onetouch Verio Test Strips) strip Start: 07-10-2024 End: 07-10-2024 Goals Date Patient Goal Desired Activity /State Functional Status Date Assessment Result Facility 11-06-2023 Functional status Ambulates;Bedside Commo [facility] Work Phone: 11-05-2023 Functional status Ambulates;Bedside Commo [facility] Work Phone: Mental Status Date Assessment Result Facility 11-06-2023 Cognitive function Appropriate;[facility] Work Phone: 11-04-2023 Cognitive function Appropriate;[facility] Work Phone: 10-20-2023 Cognitive function Voice/Name [facility] Work Phone: Clinical Notes 03-14-2021 to 12-13-2024 Note Date & Type Note Facility 12-13-2024 Evaluation note Diagnosis Onset Date Resolution Central sleep apnea acute December 13, 2024 2:06pm Lung nodule acute December 13 2:06pm COPD (chronic obstructive pulmonary disease) chronic December 13, 2024 2:06pm [facility] Work Phone: 1(424) 893-996103-05-2025 Evaluation note* Diagnosis Onset Date Resolution Status Admit Date Iron deficiency anemia due t o chronic blood loss chronic August 30 1:01pm Central sleep apnea acute December 13, 2024 2:06pm Lung nodule acute December 13 2:06pm COPD (chronic obstructive pulmonary disease) chronic December 13 2:06pm [facility] Work Phone: 1(246) 980-717005-11-2024 Progress note Author Amber Fang [facility] November 06, 2023 11:23am Note Date/Time November 06, 2023 11:24 am [facility] Medical Records Department [address] [place] [address] Progress Note - Hospitalist 11/06/23 1116 MR#: [id number] Acct: [id number] Name: ANJUM SERRANO Rep #:[id number] : 1945 78 From: Amber Fang DO PCP: Dr. Reema Myers MD Status:ADM IN Location: [facility] QX087-2 Reason for Visit Reason for Visit: Shortness of breath Subjective Subjective No complaints at this time. Nursing is at the bedside and notes his blood pressure is systolic 107 and he has metoprolol 50 mg do. At this point the patient states he is unclear why he is on 50 mg. He is not sure why his cleaning manager increase the dose. I reviewed the most [...] primary service Charges/Coding Visit Charges Inpatient E&M: 89992 Subs Hosp L2 11/06/23 1123 <Electronically signed by Amber Fang DO> Cosigner Signature (if applicable): CC: ~ Signed [facility] Work Phone: 1(585) 685-949505-11-2024 Progress note Author Shawn Moore [facility] November 06, 2023 11:17am Note Date/Time November 06, 2023 10:00 am [facility] Medical Records Department [facility] [place] [address] Progress Note - Surgery 11/06/23 1000 MR#: [id number] Acct: [id number] Name: ANJUM SERRANO Rep #:[id number] : 1945 78 From: Shawn Couch PCP: Dr. Reema Myers MD Status:ADM IN Location: [facility] [id number] Subjective Subjective Patient seen and examined during [...] Moore MD General Surgery Endocrine Surgery Pager: [facility] [address] [place] [address], [address] [place] [address] Office: [phone] Charges/Coding Visit Charges Inpatient E&M: 54899 Subs Hosp L2 11/06/23 1117 <Electronically signed by Shawn Moore MD> Cosigner Signature (if applicable): CC: ~ Signed [facility] Work Phone: 1(176) 996-327605-10-2024 Progress note Author Amber Fang [facility] November 05, 2023 5:34pm Note Date/Time November 05, 2023 8:56a m [facility] Medical Records Department [address] [place] [address] Progress Note - Hospitalist 11/05/23 0849 MR#: [id number] Acct: [id number] Name: ANJUM SERRANO Rep #:[id number] : 1945 78 From: Amber Fang DO PCP: Dr. Reema Myers MD Status:ADM IN Location: [place] 437287-1 Reason for Visit Reason for Visit: Shortness [...] 11/05/23 23:59 23:59 23:59 Intake Total 2401 2400 / 2400 Output Total 500 / 500 Balance 1901 1900 / 1900 Lab / Micro Data 11/05/23 07:20 11/05/23 07:20 Labs: Laboratory Results - last 24 hr 11/04/23 13:45: WBC 8.7, RBC 1.94 L, Hgb 5.5 L*, Hct 19.2 L, MCV 99.0 H, MCH 28.4, MCHC 28.6 L, RDW Std Deviation 61.5 H, RDW Coeff of Christina 17.2 H, Plt Count 160, MPV 10.9, Immature Gran % (Auto) APPLICATION SECURITY ARCHITECT, Neut % (Auto) APPLICATION SECURITY ARCHITECT, Lymph % (Auto) APPLICATION SECURITY ARCHITECT, [place] % (Auto) APPLICATION SECURITY ARCHITECT, Eos % (Auto) APPLICATION SECURITY ARCHITECT, Baso % (Auto) APPLICATION SECURITY ARCHITECT, Absolute Neuts (auto) 6.1, Absolute Lymphs (auto) 1.00, Total Counted 100, Neutrophils % (Manual) 68, Band Neutrophils % 2, Lymphocytes % (Manual) 12 L, Monocytes % (Manual) 4, Eosinophils % (Manual) 5, Basophils % (Manual) 2 H, Metamyelocytes % 3 H, Myelocytes % 1 H, Promyelocytes % 3 H, Nucleated RBC % APPLICATION SECURITY ARCHITECT, Diff Path Review May , Platelet Estimate ADEQUATE, RBC Morphology NORM C+C, [...] Myelocytes % 4 H, Diff Path Review October, Platelet Estimate ADEQUATE, RBC Morphology N CHROM, [...] primary service Charges/Coding Visit Charges Inpatient E&M: 16637 Subs Hosp L2 11/05/23 1734 <Electronically signed by Amber Fang DO> Rigoigner Signature (if applicable): CC: ~ Signed [facility] Work Phone: 1(795) 139-453405-10-2024 Procedure [facility] 11-05-2023 Procedure [facility]05-10-2024 Procedure note [facility]05-10-2024 Procedure [facility] 11-05-2023 Progress note Author Lilly Navarrete [facility] November 05, 2023 7:47am Note Date/Time November 05, 2023 7:46a m [facility] Medical Records Department [address] [place] [address] Progress Note - Surgery 11/05/23 0744 MR#: [id number] Acct: [id number] Name: ANJUM SERRAON Rep #:[id number] : 1945 78 From: Lilly Navarrete MD PCP: Dr. Reema Myers MD Status:ADM IN Location: [place] [address]-1 Subjective Subjective Patient tolerated prep well clear [...] 11/05/23 23:59 23:59 23:59 Intake Total 2401 2400 / 2400 Output Total 500 / 500 Balance 1901 1900 / 190 Lab / Micro Data 11/05/23 00:15 11/04/23 13:45 Labs: Laboratory Results - last 24 hr 11/04/23 13:45: WBC 8.7, RBC 1.94 L, Hgb 5.5 L*, Hct 19.2 L, MCV 99.0 H, MCH 28.4, MCHC 28.6 L, RDW Std Deviation 61.5 H, RDW Coeff of Christina 17.2 H, Plt Count 160, MPV 10.9, Immature Gran % (Auto) APPLICATION SECURITY ARCHITECT, Neut % (Auto) APPLICATION SECURITY ARCHITECT, Lymph % (Auto) APPLICATION SECURITY ARCHITECT, [place] % (Auto) APPLICATION SECURITY ARCHITECT, Eos % (Auto) APPLICATION SECURITY ARCHITECT, Baso % (Auto) APPLICATION SECURITY ARCHITECT, Absolute Neuts (auto) 6.1, Absolute Lymphs (auto) 1.00, Total Counted 100, Neutrophils % (Manual) 68, Band Neutrophils % 2, Lymphocytes % (Manual) 12 L, Monocytes % (Manual) 4, Eosinophils % (Manual) 5, Basophils % (Manual) 2 H, Metamyelocytes % 3 H, Myelocytes % 1 H, Promyelocytes % 3 H, Nucleated RBC % APPLICATION SECURITY ARCHITECT, Diff Path Review October, Platelet Estimate ADEQUATE, [...] cells?AM labs pending Lilly Navarrete M.D. Pager: [phone] [facility] [address] [place] [address], [facility], [address] [place] [address] Office: [phone] 11/05/23 0711 <Electronically signed by Lilly Navarrete MD> Cosigner Signature (if applicable): CC: ~ Signed [facility] Work Phone: 1(210) 482-941905-10-2024 Consult note [facility] November 04, 2023 10:15pm Note Date/Time November 04, 2023 2:30pm [facility] Medical Records Department [address] [place] [address] Consultation - Hospitalist 11/04/23 1430 MR#: [id number] Acct: [id number] Name: ANJUM SERRANO Rep #:[id number] : 1945 78 From: Freddie anderson DO PCP: Dr. Reema Myers MD Status:ADM [facility] Assessment & Plan Assessment/Plan (1) Acute GI bleeding: (2) Anemia: PLAN: Plan Patient is an 78-year-old male who presented [facility] ED on 11/04/2023 with worsening shortness [...] 2. A-fib on Eliquis ? Follows with [facility]. Home medications of amiodarone 200 [...] is a 78 M who presented to [facility] ED on 11/04/2023 with worsening shortness [...] under general surgery service for further management. [facility] Medical History Alcohol use Anemia Arthritis Back [...] 160, MPV 10.9, Immature Gran % (Auto) APPLICATION SECURITY ARCHITECT, Neut % (Auto) APPLICATION SECURITY ARCHITECT, Lymph % (Auto) APPLICATION SECURITY ARCHITECT, [place] % (Auto) APPLICATION SECURITY ARCHITECT, Eos % (Auto) APPLICATION SECURITY ARCHITECT, Baso % (Auto) APPLICATION SECURITY ARCHITECT, Nucleated RBC % APPLICATION SECURITY ARCHITECT, Sodium 140, Potassium 4.3, Chloride 109 H, [...] EDT , Charges/Coding Visit Charges Inpatient E&M: 31442 Subs Hosp L2 11/04/23 2215 <Electronically signed by Freddie christine DO> Cosigner Signature (if applicable): CC: Dr. Reema Myers MD~ Signed [facility] Work Phone: 1([phone]) 507-480105-09-2024 Discharge summary Author Fitz Denney [facility] November 04, 2023 4:41pm Note Date/Time November 04, 2023 1:00pm [facility] Medical Records Department [address] [place] [address] Emergency Department Summary 11/04/23 MR#: [id number] Acct: [id number] Name: ANJUM SERRANO Rep #:[id number] : [...] going on a long car ride to [place]. He denies any fevers, chills, chest pain, abdominal pain, nausea, or vomiting. PFSH <KRISTIAN Lyons - Last Filed: 11/04/23 15:19> PFS Medical History Alcohol use Anemia Arthritis Back [...] Ox 93 Oxygen Delivery Method Room Air [facility] <KRISTIAN Lyons - Last Filed: 11/04/23 15:19> [facility] Narrative Medical decision making narrative: Patient presenting [...] 160 MPV 10.9 Immature Gran % (Auto) APPLICATION SECURITY ARCHITECT Neut % (Auto) APPLICATION SECURITY ARCHITECT Lymph % (Auto) APPLICATION SECURITY ARCHITECT [place] % (Auto) APPLICATION SECURITY ARCHITECT Eos % (Auto) APPLICATION SECURITY ARCHITECT Baso % (Auto) APPLICATION SECURITY ARCHITECT Absolute Neuts (auto) 6.1 Absolute Lymphs (auto) 1.00 Total Counted 100 Neutrophils % (Manual) 68 Band Neutrophils % 2 Lymphocytes % (Manual) 12 L Monocytes % (Manual) 4 Eosinophils % (Manual) 5 Basophils % (Manual) 2 H Metamyelocytes % 3 H Myelocytes % 1 H Promyelocytes % 3 H Nucleated RBC % APPLICATION SECURITY ARCHITECT Diff Path Review May foll Platelet Estimate [...] Denney, DO - Last Filed: 11/04/23 16:41> MDM MDM Narrative Medical decision making narrative: Patient [...] condition. This patient was seen with a PA/APPLICATION SECURITY ARCHITECT Individually assessed they patient including history and physical. I have reviewed everything on the chart that is availableand agree with the documentation provided by the PA/APPLICATION SECURITY ARCHITECT including discussion about the assessment, treatment plan, [...] 160 MPV 10.9 Immature Gran % (Auto) APPLICATION SECURITY ARCHITECT Neut % (Auto) APPLICATION SECURITY ARCHITECT Lymph % (Auto) APPLICATION SECURITY ARCHITECT [place] % (Auto) APPLICATION SECURITY ARCHITECT Eos % (Auto) APPLICATION SECURITY ARCHITECT Baso % (Auto) APPLICATION SECURITY ARCHITECT Absolute Neuts (auto) 6.1 Absolute Lymphs (auto) 1.00 Total Counted 100 Neutrophils % (Manual) 68 Band Neutrophils % 2 Lymphocytes % (Manual) 12 L Monocytes % (Manual) 4 Eosinophils % (Manual) 5 Basophils % (Manual) 2 H Metamyelocytes % 3 H Myelocytes % 1 H Promyelocytes % 3 H Nucleated RBC % APPLICATION SECURITY ARCHITECT Diff Path Review May foll Platelet Estimate [...] Signed: Brian Duran MD at 13:38 EDT Reading Location ID and State: [address] [place] [address] , Service support , Discharge Plan Dx/Rx/DC Orders Clinical Impression: Leg edema, Shortness of breath, longterm current use of anticoagulant, Longstanding persistent atrial fibrillation, Acute GI bleeding Disposition Disposition: Acute Care Hospital [facility] What to do if you have Problems For any increased pain, shortness of breath, bleeding, nausea or vomiting, chestpain, or any unexpected problems, contact your Primary Care Provider. Call [facility] ([phone]) or report to the closest Emergency Room. Call 911 if necessary. 11/04/23 1519 <Electronically signed by Rhea TOWNSEND> Cosigner Signature (if applicable): 11/04/23 1641 <Electronically signed by Fitz Denney DO> CC: Dr. Reema Myers MD ~ Signed [facility] Work Phone: 1(943) 616-420505-09-2024 History and physical note Author Marcela Lassiter [facility] November 04, 2023 3:52pm Note Date/Time November 04, 2023 3:48pm [facility] Medical Records Department [address] [place] [address] History & Physical Exam 11/04/23 1530 MR#: [id number] Acct: [id number] Name: ANJUM SERRANO Rep #:[id number] : [...] is 5.5 upon admission. BNP is 254.7. [facility] Medical History Alcohol use Anemia Arthritis Back [...] 160, MPV 10.9, Immature Gran % (Auto) APPLICATION SECURITY ARCHITECT, Neut % (Auto) APPLICATION SECURITY ARCHITECT, Lymph % (Auto) APPLICATION SECURITY ARCHITECT, [place] % (Auto) APPLICATION SECURITY ARCHITECT, Eos % (Auto) APPLICATION SECURITY ARCHITECT, Baso % (Auto) APPLICATION SECURITY ARCHITECT, Absolute Neuts (auto) 6.1, Absolute Lymphs (auto) 1.00, Total Counted 100, Neutrophils % (Manual) 68, Band Neutrophils % 2, Lymphocytes % (Manual) 12 L, Monocytes % (Manual) 4, Eosinophils % (Manual) 5, Basophils % (Manual) 2 H, Metamyelocytes % 3 H, Myelocytes % 1 H, Promyelocytes % 3 H, Nucleated RBC % APPLICATION SECURITY ARCHITECT, Diff Path Review October, Platelet Estimate ADEQUATE, [...] Charges/Coding Visit Charges Office Visits / Consults: 31784 IP Consult L3 11/04/23 9791 <Electronically signed by Marcela TOWNSEND PA-C> Cosigner Signature (if applicable): CC: MOLLY Lassiter; Dr. Reema Myers MD~ Signed [facility] Work Phone: 1(903) 763-178805-09-2024 History and physical note Author Marcela Lassiter [facility] November 04, 2023 3:52pm Note Date/Time November 04, 2023 3:48pm [facility] Medical Records Department [address] [place] [address] History & Physical Exam 11/04/23 1530 MR#: [id number] Acct: [id number] Name: ANJUM SERRANO Rep #:[id number] : [...] is 5.5 upon admission. BNP is 254.7. [facility] Medical History Alcohol use Anemia Arthritis Back [...] 160, MPV 10.9, Immature Gran % (Auto) APPLICATION SECURITY ARCHITECT, Neut % (Auto) APPLICATION SECURITY ARCHITECT, Lymph % (Auto) APPLICATION SECURITY ARCHITECT, [place] % (Auto) APPLICATION SECURITY ARCHITECT, Eos % (Auto) APPLICATION SECURITY ARCHITECT, Baso % (Auto) APPLICATION SECURITY ARCHITECT, Absolute Neuts (auto) 6.1, Absolute Lymphs (auto) 1.00, Total Counted 100, Neutrophils % (Manual) 68, Band Neutrophils % 2, Lymphocytes % (Manual) 12 L, Monocytes % (Manual) 4, Eosinophils % (Manual) 5, Basophils % (Manual) 2 H, Metamyelocytes % 3 H, Myelocytes % 1 H, Promyelocytes % 3 H, Nucleated RBC % APPLICATION SECURITY ARCHITECT, Diff Path Review May foll, Platelet Estimate [...] Signed: Brian Duran MD at 13:38 EDT Reading Location ID and State: [facility] / [place] , Service support , Assessment & Plan Assessment/Plan (1) Acute [...] Charges/Coding Visit Charges Office Visits / Consults: 51345 IP Consult L3 11/04/23 0416 <Electronically signed by Marcela TOWNSEND PA-C> Cosigner Signature (if applicable): CC: MOLLY Lassiter; Dr. Reema Myers MD~ Signed [facility] Work Phone: 1(678) 326-722605-09-2024 Discharge summary Author Fitz Олег [facility] November 04, 2023 4:41pm Note Date/Time November 04, 2023 1:00pm [facility] Medical Records Department [address] [place] [address] Emergency Department Summary 11/04/23 MR#: [id number] Acct: [id number] Name: ANJUM SERRANO Rep #:[id number] : [...] going on a long car ride to [place]. He denies any fevers, chills, chest pain, abdominal pain, nausea, or vomiting. PFSH <KRISTIAN Lyons - Last Filed: 11/04/23 15:19> [facility] Medical History Alcohol use Anemia Arthritis Back [...] Ox 93 Oxygen Delivery Method Room Air [facility] <KRISTIAN Lyons - Last Filed: 11/04/23 15:19> [facility] Narrative Medical decision making narrative: Patient presenting [...] 160 MPV 10.9 Immature Gran % (Auto) APPLICATION SECURITY ARCHITECT Neut % (Auto) APPLICATION SECURITY ARCHITECT Lymph % (Auto) APPLICATION SECURITY ARCHITECT [place] % (Auto) APPLICATION SECURITY ARCHITECT Eos % (Auto) APPLICATION SECURITY ARCHITECT Baso % (Auto) APPLICATION SECURITY ARCHITECT Absolute Neuts (auto) 6.1 Absolute Lymphs (auto) 1.00 Total Counted 100 Neutrophils % (Manual) 68 Band Neutrophils % 2 Lymphocytes % (Manual) 12 L Monocytes % (Manual) 4 Eosinophils % (Manual) 5 Basophils % (Manual) 2 H Metamyelocytes % 3 H Myelocytes % 1 H Promyelocytes % 3 H Nucleated RBC % APPLICATION SECURITY ARCHITECT Diff Path Review May foll Platelet Estimate [...] Denney, DO - Last Filed: 11/04/23 16:41> [facility] MDM Narrative Medical decision making narrative: Patient [...] condition. This patient was seen with a PA/APPLICATION SECURITY ARCHITECT Individually assessed they patient including history and physical. I have reviewed everything on the chart that is availableand agree with the documentation provided by the PA/APPLICATION SECURITY ARCHITECT including discussion about the assessment, treatment plan, [...] 160 MPV 10.9 Immature Gran % (Auto) APPLICATION SECURITY ARCHITECT Neut % (Auto) APPLICATION SECURITY ARCHITECT Lymph % (Auto) APPLICATION SECURITY ARCHITECT [place] % (Auto) APPLICATION SECURITY ARCHITECT Eos % (Auto) APPLICATION SECURITY ARCHITECT Baso % (Auto) APPLICATION SECURITY ARCHITECT Absolute Neuts (auto) 6.1 Absolute Lymphs (auto) 1.00 Total Counted 100 Neutrophils % (Manual) 68 Band Neutrophils % 2 Lymphocytes % (Manual) 12 L Monocytes % (Manual) 4 Eosinophils % (Manual) 5 Basophils % (Manual) 2 H Metamyelocytes % 3 H Myelocytes % 1 H Promyelocytes % 3 H Nucleated RBC % APPLICATION SECURITY ARCHITECT Diff Path Review May foll Platelet Estimate [...] Clinical Impression: Leg edema, Shortness of breath, 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 Call [facility] ([phone]) or report to the closest Emergency Room. Call 911 if necessary. 11/04/23 1519 <Electronically signed by Rhea TOWNSEND> Cosigner Signature (if applicable): 11/04/23 1641 <Electronically signed by Fitz Denney DO> CC: Dr. Reema Myers MD ~ Signed [facility] Work Phone: 1(281) 121-624204-24-2024 Procedure [facility] 10-20-2023 Procedure [facility]04-24-2024 Procedure note [facility]04-24-2024 Procedure [facility] 06-30-2023 Procedure [facility]12-31-2023 Procedure note [facility]09-17-2021 Evaluation note* Diagnosis Onset Date Resolution Status Dizziness acute Fatigue acute New onset atrial fibrillation March 14, 2021 acute Essential hypertension chron ic Hyperlipidemia chronic [facility] Work Phone: 1(151) 346-658109-17-2021 Evaluation note* Diagnosis Onset Date Resolution Status Dizziness acute Fatigue acute New onset atrial fibrillation March 14, 2021 acute Essential hypertension chron ic Hyperlipidemia chronic Longstanding persistent atrial fibrillation acute Essential hypertension chron ic Hyperlipidemia chronic Longstanding persistent atrial fibrillation acute [facility] Work Phone: 1(245) 380-432509-17-2021 Evaluation note* Diagnosis Onset Date Resolution Status Daytime hypersomnia acute Lung nodule acute COPD (chronic obstructive pulmonary disease) chronic New onset atrial fibrillation March 14, 2021 chronic Anemia acute Acute GI bleeding acute Leg edema acute longterm current use of anticoagulant acute Longstanding persistent atrial fibrillation acute Shortness of breath acute [facility] Work Phone: 1(302) 559-444709-17-2021 Evaluation note* Diagnosis Onset Date Resolution Status Daytime hypersomnia acute Lung nodule acute COPD (chronic obstructive pulmonary disease) chronic New onset atrial fibrillation March 14, 2021 chronic Anemia acute Acute GI bleeding acute Anemia acute 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 Exertional dyspnea acute Leg edema acute Longstanding persistent atrial fibrillation acute Shortness of breath acute [facility] Work Phone: Evaluation note* Diagnosis Onset Date Resolution Status Longstanding persistent atrial fibrillation acute Essential hypertension chron ic Hyperlipidemia chronic Longstanding persistent atrial fibrillation acute Longstanding persistent atrial fibrillation acute Essential hypertension chron ic Hyperlipidemia chronic [facility] Work Phone: Evaluation note* Diagnosis Onset Date Resolution Status Longstanding persistent atrial fibrillation acute Longstanding persistent atrial fibrillation acute Essential hypertension chron ic Hyperlipidemia chronic Longstanding persistent atrial fibrillation acute [facility] Work Phone: Evaluation note* Diagnosis Onset Date Resolution Status Longstanding persistent atrial fibrillation acute Essential hypertension chron ic Hyperlipidemia chronic [facility] Work Phone: Evaluation noteNo assessment information available [facility] Work Phone: Evaluation note* Diagnosis Onset Date Resolution Status Longstanding persistent atrial fibrillation acute COPD (chronic obstructive pulmonary disease) chronic Nicotine dependence, cigarettes, in remission chronic [facility] Work Phone: Evaluation note* Diagnosis Onset Date Resolution Status Longstanding persistent atrial fibrillation acute COPD (chronic obstructive pulmonary disease) chronic Nicotine dependence, cigarettes, in remission chronic Daytime hypersomnia acute Lung nodule acute COPD (chronic obstructive pulmonary disease) chronic New onset atrial fibrillation March 14, 2021 chronic [facility] Work Phone: Evaluation note* Diagnosis Onset Date Resolution Status Longstanding persistent atrial fibrillation acute COPD (chronic obstructive pulmonary disease) chronic Nicotine dependence, cigarettes, in remission chronic Daytime hypersomnia acute Lung nodule acute COPD (chronic obstructive pulmonary disease) chronic New onset atrial fibrillation March 14, 2021 chronic Anemia acute [facility] Work Phone: History and physical note Author Lilly Navarrete [facility] October 20, 2023 8:03am Note Date/Time October 20, 2023 8:0 3am [facility] Medical Records Department [address] [place] [id number] History & Physical Exam 10/20/23 0803 MR#: [id number] Acct: [id number] Name: ANJUM SERRANO Rep #:[id number] : 1945 78 From: Lilly Navarrete MD PCP: Dr. Reema Myers MD Status:[facility] Location: [place] [address] History and Physical Date of Admission: 10/20/23 Date of Service: 09/29/23 MR#: [id number] Acct: [id number] Name: ANJUM SERRANO Rep #: [id number] : 1945 Provider: Dr. Lilly Navarrete MD Age/Sex: 78/M Location: [facility] Status: Signed Intake Vital Signs 08/13/2407:29 09/28/2412:59 [...] 09/09/23 [Rx Confirmed 09/29/23] PFSH Medical History (Reviewed 08/13/23 @ 14:05 by Lisa Madrigal APPLICATION SECURITY ARCHITECT, APPLICATION SECURITY ARCHITECT-C) BPH (benign prostatic hyperplasia) Cataracts, bilateral Essential [...] healthy appearing, comfortable and no acute distress HENMT Head: normocephalic and atraumatic Neck Neck: supple [...] MiraLAX Dulcolax prep. Lilly Navarrete M.D. Pager: [phone] [facility] [address] [place] [address], [facility], [address] [place] [address] Office: [phone] Coding Level of Care Code Off vis,new,level [...] MD; Dr. Lilly Navarrete MD ~* Signed [facility] Work Phone: Reason for referral (narrative)No [facility] for [facility]: Instructions Name Dates Details [...] No July 3:15pm Living Will No June 07, 019 4:04pm Power of Rotary Drier No June 07, 2019 4:04pm Advance Directive Response Recorded Date/ Time Advance Directives on File Yes 2021 10:58am Name of Medical Power of Rotary Drier Nan Ignacioo n- February 02, 2022 10:58am Advance Directives Yes February 02 022 10:58am Living Will Yes February 02, 2022 10:58am Power of Rotary Drier Yes February 02 10:58am Advance Directive Response Recorded Date/ Time Advance Directives on File Yes 2021 9:58am Name of Medical Power of Rotary Drier Nan Ignacioo n- February 02, 2022 9:58am Advance Directives No May 06, 2022 10:43am Living Will No May 06 10:43am Power of Rotary Drier No May 06, 2022 10:43am Advance Directive Response Recorded Date/ Time Advance Directives on File Yes Katherine t 2021 9:58am Name of Medical Power of Rotary Drier Nan Montano n- February 02, 2022 9:58am Advance Directives No April 10:42am Living Will No May 27 10:42am Power of Rotary Drier No May 27, 2022 10:42am Advance Directive Response Recorded Date/ Time Advance Directives No February 03 6:23pm Living Will No February 03, 2023 6:23pm Power of Rotary Drier No February 03 6:23pm Advance Directive Response Recorded Date/ Time Advance Directives No February 03 5:23pm Living Will No February 03, 2023 5:23pm Power of Rotary Drier No February 03 5:23pm Advance Directive Response Recorded Date/ Time Name of Medical Power of Rotary Drier SPOUSE October 19, 2023 8:46am Advance Directives No February 03 6:23pm Living Will Yes October 19, 2023 8:46am Power of Rotary Drier Yes October 18 8:46am Advance Directive Response Recorded Date/ Time Name of Medical Power of Rotary Drier SPOUSE October 19, 2023 8:46am Name of Medical Power of Rotary Drier November 04, 2023 3:20pm Advance Directives No February 03 6:23pm Living Will Yes November 04, 2023 3: 20pm Power of Rotary Drier Yes November 04, 2023 3:20pm Advance Directive Response Recorded Date/ Time Name of Medical Power of Rotary Drier SPOUSE October 19, 2023 8:46am Name of Medical Power of Rotary Drier November 04, 2023 6:23pm Advance Directives No February 03 6:23pm Living Will Yes November 04, 2023 6: 23pm Power of Rotary Drier Yes November 04, 2023 6:23pm Advance Directive Response Recorded Date/ Time Living Will Yes November 04, 2023 6: 23pm Do you have a Healthcare Power of Rotary Drier? Yes November 04, 2023 6:23pm Advance Directives No February 03 6:23pm Advance Directive Response Recorded Date/ Time Advance Directives No February 03 6:23pm Chief Complaint and Reason for Visit Chief Complaint Amb Documentation 6 M FU/WE RS FROM MOVIE EDITOR 4/5 E-ORDER Reason for Visit Dizziness Fatigue New onset atrial fibrillation Essential hypertension Hyperlipidemia Chief Complaint Amb Documentation 6 M FU/WE RS FROM MOVIE EDITOR 4/5 E-ORDER DIZZINESS Reason for Visit Dizziness Fatigue New onset atrial fibrillation Essential hypertension Hyperlipidemia Chief Complaint Amb Documentation 6 M FU/WE RS FROM MOVIE EDITOR 4/5 E-ORDER DIZZINESS 2-3 MO F/U PERSISTENT [...] fibrillation Anemia Acute GI bleeding Leg edema longterm current use of anticoagulant Longstanding persistent atrial [...] atrial fibrillation Anemia Acute GI bleeding Anemia longterm current use of anticoagulant Exertional dyspnea Leg [...] atrial fibrillation Anemia Acute GI bleeding Anemia longterm current use of anticoagulant Exertional dyspnea Leg [...] pulmonary dise ase) December 13, 2024 2:06pm Chief Complaint Admit Date 6 MO - LABS August 30, 2024 1:01 pm 3 MO - LABS August 30, 2024 1:15 pm LUNG NODULE October 23, 2024 6:5 0pm 6 M FU December 13, 2024 2:06 pm FATIGUE, SOB, CORONARY CALCIFICATION ON REG CT December 25, 2024 6:35am FATIGUE, SOB, CORONARY CALCIFICATION ON REG CT December 26, 2024 6:41am Chief Complaint Admit Date LUNG NODULE October 23, 2024 6:5 0pm 6 M FU December 13, 2024 2:06 pm FATIGUE, SOB, CORONARY CALCIFICATION ON REG CT December 25, 2024 12:00am FATIGUE, SOB, CORONARY CALCIFICATION ON REG CT December 25, 2024 6:35am FATIGUE, SOB, CORONARY CALCIFICATION ON REG CT December 26, 2024 6:41am G47.31 - Primary central sleep apnea Dec 1:00pm Reason for Visit Admit Date Central sleep apnea December 13, 2024 2:06 pm Lung nodule December 13, 2024 2:06 pm COPD (chronic obstructive pulmonary dise ase) December 13, 2024 2:06pm Additional Source Comments (unrecognized sect ion and content) No Status Records FoundNo Status Records FoundNo Status Records FoundNo Status Records Found INFORMATION SOURCE (unrecogn ized section and content) DATE CREATED AUTHOR 02/26/2019 Merged with [facility] DATE CREATED AUTHOR AUTHOR'S ORGANIZ ATION 03/31/2020 Merged with [facility] DATE CREATED AUTHOR AUTHOR'S ORGANIZ ATION 09/29/2024 [facility] DATE CREATED AUTHOR AUTHOR'S ORGANIZ ATION 01/15/2025 [facility] Goals (unrecognized section and content) [...] Provider, Referrin g Provider Active Lisa Madrigal APPLICATION SECURITY ARCHITECT, APPLICATION SECURITY ARCHITECT-C Attending Provider Active Team Status: Inactive Member Role Status Dates Dr. Reema Myers MD Primary Care Provider Active Lisa Madrigal APPLICATION SECURITY ARCHITECT, APPLICATION SECURITY ARCHITECT-C Attending Provider, Referrin g Provider Active Team Status: Active Member Role Status Dates Dr. Reema Myers MD Primary Care Provider Active Lisa Madrigal APPLICATION SECURITY ARCHITECT, APPLICATION SECURITY ARCHITECT-C Attending Provider, Referrin g Provider Active Team [...] Fitz Denney , DO Emergency Provider Active Marcela TOWNSEND PA-C [...] Status: Active Member Role Status Dates Dr. Reeam Myers MD Primary Care Provider Active Dr. [...] End: October 23, 2024 Lisa Madrigal NP, APPLICATION SECURITY ARCHITECT-C Other Provider Active Start: October 23, 2024 End: October 23, 2024 Jacqueline Sullivan NP-C Attending Provider Active Start: October 23, 2024 End: October 23, 2024 Jacqueline Sullivan NP-C Referring Provider Active Start: October 23, 2024 End: October 23, 2024 Team Status: Inactive Member Role Status Dates Dr. Reema Myers MD Referring Provider Active Start: December 13, 2024 End: December 13, 2024 Payal Sesay NP-C Attending Provider Active Start: December 13, 2024 End: December 13, 2024 Team Status: Active Member Role/Relationship Status Dates Dr. Reema Myers MD Primary Care Provider Active Team Status: Inactive Member Role/Relationship Status Dates Dr. Reema Myers MD Primary Care Provider Active Start: August 30, 2024 End: August 30, 2024 Dr. Reema Myers MD Referring Provider Active Start: August 30, 2024 End: August 30, 2024 Dr. Tamie Coleman MD Attending Provider Active Start: August 30, 2024 End: August 30, 2024 Team Status: Active Member Role/Relationship Status Dates Dr. Reema Myers MD Primary Care Provider Active Start: August 30, 2024 Dr. Tamie Coleman MD Attending Provider Active Start: August 30, 2024 Dr. Tamie Coleman MD Referring Provider Active Start: August 30, 2024 Team Status: Inactive Member Role/Relationship Status Dates Dr. Reema Myers MD Primary Care Provider Active Start: October 23, 2024 End: October 23, 2024 Lisa Madrigal NP, APPLICATION SECURITY ARCHITECT-C Other Provider Active Start: October 23, 2024 End: October 23, 2024 Jacqueline Sullivan NP-C Attending Provider Active Start: October 23, 2024 End: October 23, 2024 Jacqueline Sullivan NP-C Referring Provider Active Start: October 23, 2024 End: October 23, 2024 Team Status: Inactive Member Role/Relationship Status Dates Dr. Reema Myers MD Referring Provider Active Start: December 13, 2024 End: December 13, 2024 Payal Sesay APPLICATION SECURITY ARCHITECT-C Attending Provider Active Start: December 13, 2024 End: December 13, 2024 Team Status: Inactive Member Role/Relationship Status Dates Rick TOWNSEND PA Attending Provider Active Start: December 25, 2024 End: December 25, 2024 Rick TOWNSEND, PA Referring Provider Active Start: December 25, 2024 End: December 25, 2024 Dr. Reema Myers MD Primary Care Provider Active Start: December 25, 2024 End: December 25, 2024 Team Status: Active Member Role/Relationship Status Dates Rick TOWNSEND, PA Referring Provider Active Start: December 26, 2024 Rick TOWNSEND, PA Other Provider Active Start: December 26, 2024 Dr. Reeam Myers MD Primary Care Provider Active Start: December 26, 2024 Dr. Matthew Dodd MD Attending Provider Active S tart: December 26, 2024 Team Status: Inactive Member Role/Relationship Status Dates Dr. Reema Myers MD Primary Care Provider Active Start: October 23, 2024 End: October 23, 2024 Lisa Madrigal NP, APPLICATION SECURITY ARCHITECT-C Other Provider Active Start: October 23, 2024 End: October 23, 2024 Jacqueline Sullivan APPLICATION SECURITY ARCHITECT-C Attending Provider Active Start: October 23, 2024 End: October 23, 2024 Jacqueline Sullivan APPLICATION SECURITY ARCHITECT-C Referring Provider Active Start: October 23, 2024 End: October 23, 2024 Team Status: Inactive Member Role/Relationship Status Dates Dr. Reema Myers MD Referring Provider Active Start: December 13, 2024 End: December 13, 2024 Payal Sesay NP-C Attending Provider Active Start: December 13, 2024 End: December 13, 2024 Team Status: Active Member Role/Relationship Status Dates Dr. Reema Myers MD Primary Care Provider Active Start: December 25, 2024 Dr. Matthew Dodd MD Attending Provider Active S tart: December 25, 2024 Rick Mccormack PA, PA Referring Provider Active Start: December 25, 2024 Team Status: Inactive Member Role/Relationship Status Dates Rick TOWNSEND, PA Attending Provider Active Start: December 25, 2024 End: December 25, 2024 Rick Mccormack PA, PA Referring Provider Active Start: December 25, 2024 End: December 25, 2024 Dr. Reema Myers MD Primary Care Provider Active Start: December 25, 2024 End: December 25, 2024 Team Status: Active Member Role/Relationship Status Dates Rick Mccormack PA, PA Referring Provider Active Start: December 26, 2024 Rick Mccormack PA, PA Other Provider Active Start: December 26, 2024 Dr. Reema Myers MD Primary Care Provider Active Start: December 26, 2024 Dr. Matthew Dodd MD Attending Provider Active S tart: December 26, 2024 Team Status: Inactive Member Role/Relationship Status Dates SHIRA Bonilla Attending Provider Active Start: January 04, 2025 End: January 04, 2025 SHIRA Bonilla Referring Provider Active Start: January 04, 2025 End: January 04, 2025 Dr. Reema Myers MD Primary Care Provider Active Start: January 04, 2025 End: January 04, 2025 FOR RECORDS PERTAINING TO PATIENTS WHO ARE [...] BE BASED ON THE PRIMARY CLINICAL RECORDS. [facility] [employer] [facility]. provides no warranty or guarantee of the accuracy or completeness of information in this document.
--- OUTSIDE RECORDS SUMMARY | 2025-01-17 20:32 | XMS RPT_ITS | CCD ---
Author Organization [facility] CliniSyil Care Team Providers Care Chemists Name Role Phone Olga Spears Unavailable Erin Mccracken Unavailable Unavailable Anika Umana Unavailable Unavailable Unavailable Unavailable Dr. Reema Myers Primary Care Provider [phone] CLINICAL BIOSTATISTICIAN, CLINICAL BIOSTATISTICIAN-C Erin Attending Provider Dr. Reema Myers Referring Provider [phone] Patel Luna Attending Provider Skyler CLINICAL BIOSTATISTICIAN, CLINICAL BIOSTATISTICIAN-C Erin Referring Provider KRISTIAN Buckley Attending Provider [...] Ruth Bravo Attending Provider Unavailable Skyler NUR, CLINICAL BIOSTATISTICIAN-C Erin Attending Provider Dr. Reema Myers Primary Care Provider [phone] Reema Myers Referring Provider Dr. Matthew Dodd Attending Provider [place] Rick Peterson Attending Provider Dr. Reema Myers Primary Care Provider [phone] Reema Myers Referring Provider Dr. Reema Myers Other Provider Dr. Ramesh Whittington Attending Provider Dr. Chemo Aldrich Attending Provider Rohan CLINICAL BIOSTATISTICIAN, CLINICAL BIOSTATISTICIAN-C Lisa Attending Provider Dr. Reema Myers Primary Care Provider [phone] Dr. Reema Myers Referring Provider Dr. Reema Myers Other Provider Dr. Ramesh Whittington Attending Provider Dr. Chemo Aldrich Attending Provider Rohan CLINICAL BIOSTATISTICIAN, CLINICAL BIOSTATISTICIAN-C Lisa Attending Provider [phone] Dr. Lilly Navarrete Attending Provider Dr. Lilly Navarrete Other Provider Dr. Reema Myers Primary Care Provider [phone] Reema Myers Referring Provider Dr. Reema Myers Other Provider Dr. Ramesh Whittington Attending Provider Dr. Matthew Dodd Attending Provider Dr. Reema Myers Primary Care Provider Dr. Reema Myers Referring Provider Dr. Fitz Denney Emergency Provider Maikol TOWNSEDN PA-C Marcela Attending Provider Dr. Fitz Denney Emergency Provider [phone] Roberto Husseinit Provider Dr. Roberto Hussein [...] Other Provider Nate NUR-CJacqueline Attending Provider Nate CLINICAL BIOSTATISTICIAN-CJacqueline Referring Provider Lázaro NUR-CPayal Attending Provider Dr. Reema Myers MD Primary Care Provider Rick Buckley Attending Provider [phone] Rick Buckley Referring Provider [phone] Rick Buckley Other Provider Ju VELASQUEZ, Dr. Castro Attending Provider [phone] Louis VELASQUEZ, Dr. Benavidez Primary Care Provider Louis VELASQUEZ, Dr. Benavidez Referring Provider Ju VELASQUEZ, Dr. Castro Attending Provider [phone] Rick Bukcley Referring Provider [phone] Lázaro NUR-CPayal Referring [...] Care Unavailable Lisa Madrigal Attending Unavailable Miedel, Erema Referring Unavailable Chet, Tariq Attending Unavailable Miedel, [...] Unavailable Miedel, Reema Primary Care Unavailable Tamie Coleman Attending Unavailable Miedel, Reema Primary Care Unavailable [...] DO, DO, Kathleen Start : 18-Feb-2015 Active Kingston-3 Fatty Acids-Fish Oil (20 sources) Start: 05-31-2019 Kingston-3 Fatty Acids-Fish Oil Active 3 EACH PO TWICE A DAY May 31, 2019 11:06am Start: 05-31-2019 Kingston-3 Fatty Acids-Fish Oil Active 3 EACH PO TWICE A DAY May 31, 2019 12:00am Start: 05-31-2019 Kingston-3 Fatty Acids-Fish Oil Active 3 EACH PO [...] 31, 2019 1:00am June 07, 2019 2:07pm [facility] azithromycin 250 mg oral tablet (3 sources) [...] Quantity: 14 {Tablet} Refills: 0 Ordered: 02-Jul-2008 EIMLY Payne Start : 02-Jul-2008 End : 04-Jan-2009 [...] Start : 29-Apr-2011 End : 05-Feb-2012 Discontinued Kingston-3 Fatty Acids-Fish Oil 1 EACH capsule (3 sources) Start: 05-31-2019 End: 05-18-2024 Kingston-3 Fatty Acids-Fish Oil 1 EACH capsule Discontinued 3 NMA PO TWICE A DAY May 31, 2019 1:00am May 18, 2024 3:27pm supplement Start: 05-31-2019 End: 05-18-2024 Kingston-3 Fatty Acids-Fish Oil 1 EACH capsule Discontinued [...] coronary artery; Translations: [Atherosclerotic heart disease of [place] coronary artery without angina pectoris] Onset: 5 [...] sources) Long-term current use of anticoagulant; Translations: [intermediate frame tender (current) use of 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] 02-02-2023 Episodic Other aftercare (19 sources) Drug therapy finding; Translations: [Other group home (current) drug therapy] 02-04-2023 Episodic Other aftercare (3 sources) correction (current) use of 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; Translations: [Long-term (current) [...] By: Matthew Dodd on 12-26-2024 Study report [facility] [address] [place] [address] MR#: [id number] Acct: [id number] Name: ANJUM SERRANO Rep #: [id number] [...] test. Preserved ejection fraction. 12/26/24641 Date _ Matthew Dodd MD CC: Dr. Reema Myers MD; KRISTIAN Steen ~ Date Dictated: 12/26/24640 Date Transcribed: 12/26/24640 Summer Camp Counselor: [place] Signed [facility] Work Phone: Stress Reporton 12-26-2024 Stress Report [facility] [address] [place] [address] MR#: [id number] Acct: [id number] Name: ANJUM SERRANO Rep #: [id number] : 1945 79 From: Matthew Dodd MD [...] Steen Date Dictated: 12/26/24640 Date Transcribed: 12/26/24640 Summer Camp Counselor: [place] Signed Normal [facility] Pulmonary Visit Reporton Pulmonary Visit Report [facility] Pulmonary Medicine of [address] [place] [address] OFFICE VISIT Date of Service: 12/13/24 MR#: [id number] Acct: [id number] Name: ANJUM SERRANO Rep #: [id number] [...] Reasons: 6 M FU Chief Complaint: thyrotoxicosis Multimedia Engineer Required: No DME Vendor: [employer] Accompanied by: Self Is patient in pain?: No Allergies No Known Allergies Allergy (Verified 12/13/24 14:15) Medications ???Medication ???Instructions ???Recorded ???Confirmed ???Type atorvastatin 40 mg tablet 40 mg PO QHS 03/18/21 12/13/24 His tory docusate sodi (more content not included)... Normal [facility] Chest without Contraston Chest without Contrast [facility] Services [address] [place] [address] Chest without Contrast MR#: [id number] Acct: [id number] Name: SERRANOANJUM MCCONNELLD Rep #: [id number] : 1945 M 79 From: William Peter MD PCP: Dr. Reema Myers MD Status: REG CLI Study: Chest without Contrast Date of Exam: 10/23/24 Exam# [id number] Ordering Dr: Lisa Madrigal NP CLINICAL BIOSTATISTICIAN-C PROCEDURE: CHEST WITHOUT CONTRAST 10/23/2024 REASON FOR [...] is present No active disease. Reading Location: [facility] CC: CLINICAL BIOSTATISTICIAN-C Lisa Madrigal; Dr. Reema Myers MD Summer Camp Counselor: Signed Normal [facility] BETA-HYDROXYBUTYRATEon 09-26 BETA-HYDROXYBUTYRATE 0.1 mmol/L Normal 0.0-0.3 [facility] Comment on above: Performed By: #### 4 [id number] #### [facility] [address] [place], [place] [address] Jose Francisco Olmstead M.D. [id number] CBC WITH AUTO DIFFERENTIALon 09-26-2024 AUTO NRBC 0.0 % Normal [facility] Comment on above: Performed By: #### L [id number] #### [facility] [address] [place], [place] [address] Jose Francisco Olmstead M.D. [id number] AUTO NRBC ABS COUNT 0.00 K/mcL Normal 0.00-0.00 [facility] Comment on above: Performed By: #### L [id number] #### LAB [address] [place] [address] Jose Francisco Olmstead M.D. [id number] Erythrocyte distribution width (RBC) [Ratio] 13.6 % Normal 11.6-14.8 [facility] Comment on above: Performed By: #### L [id number] #### [facility] [address] [place] [address] Jose Francisco Olmstead M.D. [id number] Hematocrit (Bld) [Volume fraction] 42.2 % Normal 41.0-53.0 [facility] Comment on above: Performed By: #### L [id number] #### LAB [address] [place] [address] Jose Francisco Olmstead M.D. [id number] Hemoglobin (Bld) [Mass/Vol] 14.0 g/dL Normal 13.5-17.5 [facility] Comment on above: Performed By: #### L [id number] #### [facility] [address] [place] [address] Jose Francisco Olmstead M.D. [id number] MCH (RBC) [Entitic mass] 33.7 pg Normal 26.0-34.0 [facility] Comment on above: Performed By: #### L [id number] #### LAB [address] [place] [address] Jose Francisco Olmstead M.D. [id number] MCV (RBC) [Entitic vol] 101.7 fL High 80.0-100.0 [facility] Comment on above: Performed By: #### L [id number] #### [facility] [address] [place] [address] Jose Francisco Olmstead M.D. [id number] MEAN CORPUSCULAR HEMOGLOBIN CONC 33.2 g/dL Normal 31.0-37.0 [facility] Comment on above: Performed By: #### L [id number] #### [facility] [address] [place] [address] Jose Francisco Olmstead M.D. [id number] Platelet mean volume (Bld) [Entitic vol] 11.4 fL Normal 9.4-12.4 [facility] Comment on above: Performed By: #### L [id number] #### [facility] [address] [place] [address] Jose Francisco Olmstead M.D. [id number] Platelets (Bld) [#/Vol] 142 10*3/uL Low 150-400 [facility] Comment on above: Performed By: #### L [id number] #### [facility] [address] [place] [address] Jose Francisco Olmstead M.D. [id number] RBC (Bld) [#/Vol] 4.15 10*6/uL Low 4.50-5.90 [facility] Comment on above: Performed By: #### L [id number] #### [facility] [address] [place] [address] Jose Francisco Olmstead M.D. [id number] WBC (Bld) [#/Vol] 7.87 10*3/uL Normal 4.50-11.00 [facility] Comment on above: Performed By: #### L [id number] #### [facility] [address] [place] [address] Jose Francisco Olmstead M.D. [id number] COMPREHENSIVE METABOLIC PANE Fahad 09-26-2024 Albumin [Mass/Vol] 4.4 g/dL Normal 3.2-5.2 [facility] Comment on above: Order Comment: [facility] has implemented the eGFR calculation approach that does not have a coefficient for race that conforms to the NKF-ASN Task Force Recommendations. Performed By: #### 4 6126 #### [facility] [address] [place] [address] Jose Francisco Olmstead M.D. [id number] ALP [Catalytic activity/Vol] 64 U/L Normal 40-150 [facility] Comment on above: Order Comment: [facility] has implemented the eGFR calculation approach that does not have a coefficient for race that conforms to the NKF-ASN Task Force Recommendations. Performed By: #### 4 6126 #### LAB [address] [place] [address] Jose Francisco Olmstead M.D. [id number] ALT [Catalytic activity/Vol] 42 U/L Normal 0-50 U/L [facility] Comment on above: Order Comment: [facility] has implemented the eGFR calculation approach that does not have a coefficient for race that conforms to the NKF-ASN Task Force Recommendations. Performed By: #### 4 6126 #### LAB [address] [place] [address] Jose Francisco Olmstead M.D. [id number] Anion gap [Moles/Vol] 19 mmol/L Normal 10-20 [facility] Comment on above: Order Comment: [facility] has implemented the eGFR calculation approach that does not have a coefficient for race that conforms to the NKF-ASN Task Force Recommendations. Performed By: #### 4 6126 #### LAB [address] [place] [address] Jose Francisco Olmstead M.D. [id number] AST [Catalytic activity/Vol] 21 U/L Normal 0-50 U/L [facility] Comment on above: Order Comment: [facility] has implemented the eGFR calculation approach that does not have a coefficient for race that conforms to the NKF-ASN Task Force Recommendations. Performed By: #### 4 6126 #### LAB [address] [place] [address] Jose Francisco Olmstead M.D. [id number] Bilirubin [Mass/Vol] 0.8 mg/dL Normal 0.0-1.3 [facility] Comment on above: Order Comment: [facility] has implemented the eGFR calculation approach that does not have a coefficient for race that conforms to the NKF-ASN Task Force Recommendations. Performed By: #### 4 6126 #### LAB [address] [place] [address] Jose Francisco Olmstead M.D. [id number] Calcium [Mass/Vol] 9.3 mg/dL Normal 8.4-10.2 [facility] Comment on above: Order Comment: [facility] has implemented the eGFR calculation approach that does not have a coefficient for race that conforms to the NKF-ASN Task Force Recommendations. Performed By: #### 4 6126 #### LAB [address] [place] [id number] Jose Francisco Olmstead M.D. [id number] Chloride [Moles/Vol] 100 mmol/L Normal 98-108 [facility] Comment on above: Order Comment: [facility] has implemented the eGFR calculation approach that does not have a coefficient for race that conforms to the NKF-ASN Task Force Recommendations. Performed By: #### 4 6126 #### LAB [address] [place] [address] Jose Francisco Olmstead M.D. [id number] Creatinine [Mass/Vol] 1.24 mg/dL Normal 0.80-1.30 [facility] Comment on above: Order Comment: [facility] has implemented the eGFR calculation approach that does not have a coefficient for race that conforms to the NKF-ASN Task Force Recommendations. Performed By: #### 4 6126 #### LAB [address] [place] [address] Jose Francisco Olmstead M.D. [id number] EGFR 58 mL/min/1.73 m2 Low >=60 [facility] Comment on above: Order Comment: [facility] has implemented the eGFR calculation approach that does not have a coefficient for race that conforms to the NKF-ASN Task Force Recommendations. Result Comment: Lisa mated GFR was calculated using the 2020 CKD-EPI creatinine equation. Performed By: #### 4 6126 #### LAB [address] [place] [address] Jose Francisco Olmstead M.D. [id number] Glucose [Mass/Vol] 365 mg/dL High 65-99 [facility] Comment on above: Order Comment: [facility] has implemented the eGFR calculation approach that does not have a coefficient for race that conforms to the NKF-ASN Task Force Recommendations. Performed By: #### 4 6126 #### LAB [address] [place] [address] Jose Francisco Olmstead M.D. [id number] HCO3 (Bld) [Moles/Vol] 24 mmol/L Normal 21-32 [facility] Comment on above: Order Comment: [facility] has implemented the eGFR calculation approach that does not have a coefficient for race that conforms to the NKF-ASN Task Force Recommendations. Performed By: #### 4 6126 #### LAB [address] [place] [address] Jose Francisco Olmstead M.D. [id number] Potassium [Moles/Vol] 4.5 mmol/L Normal 3.5-5.1 [facility] Comment on above: Order Comment: [facility] has implemented the eGFR calculation approach that does not have a coefficient for race that conforms to the NKF-ASN Task Force Recommendations. Performed By: #### 4 6126 #### LAB [address] [place] [address] Jose Francisco Olmstead M.D. [id number] Protein [Mass/Vol] 6.5 g/dL Normal 6.0-8.0 [facility] Comment on above: Order Comment: [facility] has implemented the eGFR calculation approach that does not have a coefficient for race that conforms to the NKF-ASN Task Force Recommendations. Performed By: #### 4 6126 #### LAB [address] [place] [address] Jose Francisco Olmstead M.D. [id number] Sodium [Moles/Vol] 138 mmol/L Normal 135-145 [facility] Comment on above: Order Comment: [facility] has implemented the eGFR calculation approach that does not have a coefficient for race that conforms to the NKF-ASN Task Force Recommendations. Performed By: #### 4 6126 #### LAB [address] [place] [address] Jose Francisco Olmstead M.D. [id number] Urea nitrogen [Mass/Vol] 22 mg/dL Normal 8-25 [facility] Comment on above: Order Comment: [facility] has implemented the eGFR calculation approach that does not have a coefficient for race that conforms to the NKF-ASN Task Force Recommendations. Performed By: #### 4 6126 #### LAB [address] [place], [place] [address] Jose Francisco Olmstead M.D. [id number] Urea nitrogen/Creatinine [Mass ratio] 17.7 mg/mg Normal 10.0-20.0 [facility] Comment on above: Order Comment: [facility] has implemented the eGFR calculation approach that does not have a coefficient for race that conforms to the NKF-ASN Task Force Recommendations. Performed By: #### 4 6126 #### LAB [address] [place], [place] [address] Jose Francisco Olmstead M.D. [id number] ED Prov Noteon 09-26-2024 ED Prov Note ED PROVIDER NOTE [facility] EM[facility]ENC[facility] NAME: Anjum Serrano AGE: 79 y.o. : 1945 VISIT DATE: 09/26/2024 CSN: [id number] PCP: Reema Myers MD Chief Complaint Patient [...] was referred to this ED by his [place] provider of record for hyperglycemia. Reports blood sugar at that office was 419. Patient has no history of diabetes. He denies any complaints at this time. He does report that he recently had a cough and just finished several days of prednisone therapy yesterday. Differential diagnosis include (more content not included)... Normal [facility] MANUAL DIFFERENTIALon 2024 BASOPHILS - ABS (DIFF) 0.00 K/mcL Normal 0.00-0.30 [facility] Comment on above: Performed By: #### 4 5405 #### LAB [address] [place] [address] Jose Francisco Olmstead M.D. [id number] BASOPHILS - REL (DIFF) 0.0 % Normal [facility] Comment on above: Performed By: #### 4 5456 #### LAB [address] [place] [address] Jose Francisco Olmstead M.D. [id number] EOSINOPHILS - ABS (DIFF) 0.00 K/mcL Normal 0.00-0.50 [facility] Comment on above: Performed By: #### 4 5456 #### LAB [address] [place] [address] Jose Francisco Olmstead M.D. [id number] EOSINOPHILS - REL (DIFF) 0.0 % [facility] Comment on above: Performed By: #### 4 5488 #### LAB [address] [place] [address] Jose Francisco Olmstead M.D. [id number] LYMPHOCYTES - ABS (DIFF) 1.34 K/mcL Normal 0.90-4.00 [facility] Comment on above: Performed By: #### 4 2456 #### LAB [address] [place] [address] Jose Francisco Olmstead M.D. [id number] LYMPHOCYTES - REL (DIFF) 17.0 % [facility] Comment on above: Performed By: #### 4 5142 #### LAB [address] [place] [address] Jose Francisco Olmstead M.D. [id number] METAMYELOCYTES-REL (DIFF) 1.0 % [facility] Comment on above: Performed By: #### 4 0195 #### LAB [address] [place] [address] Jose Francisco Olmstead M.D. [id number] MONOCYTES - ABS (DIFF) 0.55 K/mcL Normal 0.30-0.90 [facility] Comment on above: Performed By: #### 4 5456 #### LAB [address] [place] [id number] Jose Francisco Olmstead M.D. [id number] MONOCYTES - REL (DIFF) 7.0 % Normal [facility] Comment on above: Performed By: #### 4 5456 #### LAB [address] [place] [address] Jose Francisco Olmstead M.D. [id number] MYELOCYTES RELATIVE PERCENT 5.0 % [facility] Comment on above: Performed By: #### 4 5456 #### LAB [address] [place] [address] Jose Francisco Olmstead M.D. [id number] NEUTROPHILS - ABS (DIFF) 5.98 K/mcL Normal 1.70-7.00 [facility] Comment on above: Performed By: #### 4 5456 #### LAB [address] [place] [address] Jose Francisco Olmstead M.D. [id number] NEUTROPHILS - REL (DIFF) 70.0 % [facility] Comment on above: Performed By: #### 4 5456 #### LAB [address] [place] [address] Jose Francisco Olmstead M.D. [id number] MORPHOLOGYon 09-26-2024 OVAL SCAN Few [facility] Comment on above: Performed By: #### L AB295 #### [facility] [address] [place] [address] Jose Francisco Olmstead M.D. [id number] PLATELET ESTIMATE Decreased Abnormal Normal [facility] Comment on above: Performed By: #### L AB295 #### [facility] [address] [place] [address] Jose Francisco Olmstead M.D. [id number] POLY SCAN [facility] Comment on above: Performed By: #### L AB295 #### [facility] [address] [place] [address] Jose Francisco Olmstead M.D. [id number] RBC MORPH SCAN See Comment Normal [facility] Comment on above: Result Comment: RBC Indices confirmed with manual peripheral smear review. Performed By: #### L AB295 #### [facility] [address] [place], [place] [address] Jose Francisco Olmstead M.D. [id number] POC GLUCOSE - [facility] 025 Glucose [Mass/Vol] 187 mg/dL High [address] [place] [address] Comment on above: Performed By: #### 4 6932 #### [facility] [address] [place] [address] Jose Francisco Olmstead M.D. [id number] Glucose [Mass/Vol] 331 mg/dL High [address] [place] [address] Comment on above: Performed By: #### 4 6932 #### LAB [address] [place], [place] [address] Jose Francisco Olmstead M.D. [id number] Absolute lymphocyte countOrd ered By: Tamie Coleman on 08-30-2024 Lymphocytes Auto (Unsp spec) [#/Vol] 1.01 10*3/uL 0.83-4.51 [facility] Absolute neutrophil countOrd ered By: Tamie Coleman on 08-30-2024 Neutrophils (Bld) [#/Vol] 3.4 10*3/uL 2.0-7.7 [facility] Automated lymphocyte count a s percentage of total leukocytesOrdered By: Tamie Coleman on 08-30-2024 Lymphocytes/100 WBC Auto (Unsp spec) 17.3 % Low 19-41 [facility] Basophil percentageOrdered B y: Tamie Coleamn on 08-30-2024 Basophils/100 WBC (Bld) 0.5 % 0-1 [facility] CBC W/Diff, Automatedon Absolute Lymph 1.01 X10 3/uL Normal 0.83-4.51 [facility] Comment on above: Order Comment: DR Jericho ROSENBERG ORDERED TSH, FT4ALL OTHER LABS ARE FOR DR COLEMAN Performed By: #### L 506.0400, L100.0100, L501.9520, L503.6550, L503.6030, L100.9950 ####[facility] [address] [place], [address] Absolute Neut 3.4 X10 3/uL Normal 2.0-7.7 [facility] Comment on above: Order Comment: DR Jericho ROSENBERG ORDERED TSH, FT4ALL OTHER LABS ARE FOR DR COLEMAN Performed By: #### L 506.0400, L100.0100, L501.9520, L503.6550, L503.6030, L100.9950 ####[facility] [address] [place], [address] Basophils/100 WBC (Bld) 0.5 % Normal 0-1 [facility] Comment on above: Order Comment: DR Jericho ROSENBERG ORDERED TSH, FT4ALL OTHER LABS ARE FOR DR COLEMAN Performed By: #### L 506.0400, L100.0100, L501.9520, L503.6550, L503.6030, L100.9950 ####[facility] [address] [place], [address] Eosinophils/100 WBC (Bld) 9.4 % High 0-5 [facility] Comment on above: Order Comment: DR Jericho ROSENBERG ORDERED TSH, FT4ALL OTHER LABS ARE FOR DR COLEMAN Performed By: #### L 506.0400, L100.0100, L501.9520, L503.6550, L503.6030, L100.9950 ####[facility] [address] [place], [address] Erythrocyte distribution width (RBC) [Ratio] 13.1 % Normal 11.6-14.6 [facility] Comment on above: Order Comment: DR Jericho ROSENBERG ORDERED TSH, FT4ALL OTHER LABS ARE FOR DR COLEMAN Performed By: #### L 506.0400, L100.0100, L501.9520, L503.6550, L503.6030, L100.9950 ####[facility] [address] [place], [address] Hematocrit (Bld) [Volume fraction] 40.9 % Normal 40-54 [facility] Comment on above: Order Comment: DR Jericho ROSENBERG ORDERED TSH, FT4ALL OTHER LABS ARE FOR DR COLEMAN Performed By: #### L 506.0400, L100.0100, L501.9520, L503.6550, L503.6030, L100.9950 ####[facility] [address] [place], [address] Hemoglobin (Bld) [Mass/Vol] 13.7 g/dL Normal 13.0-16.5 [facility] Comment on above: Order Comment: DR Jericho ROSENBERG ORDERED TSH, FT4ALL OTHER LABS ARE FOR DR COLEMAN Performed By: #### L 506.0400, L100.0100, L501.9520, L503.6550, L503.6030, L100.9950 ####[facility] [address] [place], [address] IG% 4.300 High 0.0-0.9 [facility] Comment on above: Order Comment: DR Jericho ROSENBERG ORDERED TSH, FT4ALL OTHER LABS ARE FOR DR COLEMAN Result Comment: IG% - Immature Granulocytes (promyelocytes, myelocytes and metamyelocytes) > 1% indicates that a LEFT SHIFT is Present. Performed By: #### L 506.0400, L100.0100, L501.9520, L503.6550, L503.6030, L100.9950 ####[facility] [address] [place], [place], [address] Lymphocytes/100 WBC (Bld) 17.3 % Low 19-41 [facility] Comment on above: Order Comment: DR Jericho ROSENBERG ORDERED TSH, FT4ALL OTHER LABS ARE FOR DR COLEMAN Performed By: #### L 506.0400, L100.0100, L501.9520, L503.6550, L503.6030, L100.9950 ####[facility] [address] [place], [address] MCH (RBC) [Entitic mass] 34.0 pg High 27.0-32.0 [facility] Comment on above: Order Comment: DR Jericho ROSENBERG ORDERED TSH, FT4ALL OTHER LABS ARE FOR DR COLEMAN Performed By: #### L 506.0400, L100.0100, L501.9520, L503.6550, L503.6030, L100.9950 ####[facility] [address] [place], [address] MCHC (RBC) [Mass/Vol] 33.5 g/dL Normal 32-[address] [facility] Comment on above: Order Comment: DR Jericho ROSENBERG ORDERED TSH, FT4ALL OTHER LABS ARE FOR DR COLEMAN Performed By: #### L 506.0400, L100.0100, L501.9520, L503.6550, L503.6030, L100.9950 ####[facility] [address] [place], [address] MCV (RBC) [Entitic vol] 101.5 fL High 80-94 [facility] Comment on above: Order Comment: DR Jericho ROSENBERG ORDERED TSH, FT4ALL OTHER LABS ARE FOR DR COLEMAN Performed By: #### L 506.0400, L100.0100, L501.9520, L503.6550, L503.6030, L100.9950 ####[facility] [address] [place], [address] Monocytes/100 WBC (Bld) 9.4 % Normal 0-10 [facility] Comment on above: Order Comment: DR Jericho ROSENBERG ORDERED TSH, FT4ALL OTHER LABS ARE FOR DR COLEMAN Performed By: #### L 506.0400, L100.0100, L501.9520, L503.6550, L503.6030, L100.9950 ####[facility] [address] [place], [address] Neutrophils/100 WBC (Bld) 59.1 % Normal 47-70 [facility] Comment on above: Order Comment: DR Jericho ROSENBERG ORDERED TSH, FT4ALL OTHER LABS ARE FOR DR COLEMAN Performed By: #### L 506.0400, L100.0100, L501.9520, L503.6550, L503.6030, L100.9950 ####[facility] [address] [place], [address] Nucleated RBC (Bld) [#/Vol] 0.3 10*3/uL Normal 0-5 [facility] Comment on above: Order Comment: DR Jericho ROSENBERG ORDERED TSH, FT4ALL OTHER LABS ARE FOR DR COLEMAN Performed By: #### L 506.0400, L100.0100, L501.9520, L503.6550, L503.6030, L100.9950 ####[facility] [address] [place], [address] Platelet mean volume (Bld) [Entitic vol] 11.4 fL Normal 6.2-12.0 [facility] Comment on above: Order Comment: DR Jericho ROSENBERG ORDERED TSH, FT4ALL OTHER LABS ARE FOR DR COLEMAN Performed By: #### L 506.0400, L100.0100, L501.9520, L503.6550, L503.6030, L100.9950 ####[facility] [address] [place], [address] Platelets (Bld) [#/Vol] 114 10*3/uL Low 150-450 [facility] Comment on above: Order Comment: DR Jericho ROSENBERG ORDERED TSH, FT4ALL OTHER LABS ARE FOR DR COLEMAN Performed By: #### L 506.0400, L100.0100, L501.9520, L503.6550, L503.6030, L100.9950 ####[facility] [address] [place], [address] RBC (Bld) [#/Vol] 4.03 10*6/uL Low 4.6-6.2 [facility] Comment on above: Order Comment: DR Jericho ROSENBERG ORDERED TSH, FT4ALL OTHER LABS ARE FOR DR COLEMAN Performed By: #### L 506.0400, L100.0100, L501.9520, L503.6550, L503.6030, L100.9950 ####[facility] [address] [place], [address] RDW SD 48.6 fl High 35.1-43.9 [facility] Comment on above: Order Comment: DR Jericho ROSENBERG ORDERED TSH, FT4ALL OTHER LABS ARE FOR DR COLEMAN Performed By: #### L 506.0400, L100.0100, L501.9520, L503.6550, L503.6030, L100.9950 ####[facility] [address] [place], [address] WBC (Bld) [#/Vol] 5.8 10*3/uL Normal 4.4-11.0 [facility] Comment on above: Order Comment: DR Jericho ROSENBERG ORDERED TSH, FT4ALL OTHER LABS ARE FOR DR COLEMAN Performed By: #### L 506.0400, L100.0100, L501.9520, L503.6550, L503.6030, L100.9950 ####[facility] [address] [facility] [place], [address] Eosinophil percentageOrdered By: Tamie Coleman on 08-30-2024 Eosinophils/100 WBC (Bld) 9.4 % High 0-5 [facility] Erythrocyte distribution wid th ratioOrdered By: Tamie Coleman on 08-30-2024 Erythrocyte distribution width (RBC) [Ratio] 13.1 % 11.6-14.6 [facility] Erythrocyte distribution wid th standard deviationOrdered By: Tamie Coleman on 08-30-2024 Erythrocyte distribution width (RBC) [Ratio] 48.6 fl High 35.1-43.9 [facility] Ferritinon 08-30-2024 Ferritin [Mass/Vol] 50 ng/mL Normal 37-417 [facility] Comment on above: Order Comment: DR Jericho ROSENBERG ORDERED TSH, FT4ALL OTHER LABS ARE FOR DR COLEMAN Performed By: #### L 506.0400, L100.0100, L501.9520, L503.6550, L503.6030, L100.9950 ####[facility] [address] [place], [place], [id number] Hematocrit Auto (Bld) [Volum e fraction]Ordered By: Tamie Coleman on 08-30-2024 Hematocrit (Bld) [Volume fraction] 40.9 % 40-54 [facility] Hemoglobin measurementOrdere d By: Tamie Coleman on 08-30-2024 Hemoglobin (Bld) [Mass/Vol] 13.7 g/dL 13.0-16.5 [facility] Immature granulocytes/100 WB C Auto (Bld)Ordered By: Tamie Coleman on 08-30-2024 Immature granulocytes/100 WBC (Bld) 4.300 % High 0.0-0.9 [facility] Comment on above: IG% - Immature Granu locytes (promyelocytes, myelocytes and metamyelocytes) > 1% indicates that a LEFT SHIFT is Present. Iron measurement (mass/mass) Ordered By: Tamie Coleman on 08-30-2024 Iron (Unsp spec) [Mass/Mass] 67 ug/dL 65-175 [facility] Iron+Iron Binding Capacityon 08-30-2024 Iron [Mass/Vol] 67 ug/dL Normal 65-175 [facility] Comment on above: Order Comment: DR Jericho ROSENBERG ORDERED TSH, FT4ALL OTHER LABS ARE FOR DR COLEMAN Performed By: #### L 506.0400, L100.0100, L501.9520, L503.6550, L503.6030, L100.9950 ####[facility] [address] [place], [place], [id number]) IRON SATURATION 18.0 Normal 15.0-55.0 [facility] Comment on above: Order Comment: DR Jericho ROSENBERG ORDERED TSH, FT4ALL OTHER LABS ARE FOR DR COLEMAN Performed By: #### L 506.0400, L100.0100, L501.9520, L503.6550, L503.6030, L100.9950 ####[facility] [address] [place], [address] TIBC 378 ug/dL Normal 250-450 [facility] Comment on above: Order Comment: DR Jericho ROSENBERG ORDERED TSH, FT4ALL OTHER LABS ARE FOR DR COLEMAN Performed By: #### L 506.0400, L100.0100, L501.9520, L503.6550, L503.6030, L100.9950 ####[facility] [address] [place], [address] UIBC 311 ug/dL Normal 228-428 [facility] Comment on above: Order Comment: DR Jericho ROSENBERG ORDERED TSH, FT4ALL OTHER LABS ARE FOR DR COLEMAN Performed By: #### L 506.0400, L100.0100, L501.9520, L503.6550, L503.6030, L100.9950 ####[facility] [address] [facility] [place], [address] MCV (mean corpuscular volume ) determinationOrdered By: Tamie Coleman on 08-30-2024 MCV (RBC) [Entitic vol] 101.5 fL High 80-94 [facility] Mean corpuscular hemoglobin (MCH) determinationOrdered By: Tamie Coleman on 08-30-2024 MCH (RBC) [Entitic mass] 34.0 pg High 27.0-32.0 [facility] Mean corpuscular hemoglobin concentration (MCHC) determinationOrdered By: Tamie Coleman on 08-30-2024 MCHC (RBC) [Mass/Vol] 33.5 g/dL 32-[address] [facility] Mean platelet volume determi nationOrdered By: Tamie Coleman on 08-30-2024 Platelet mean volume (Bld) [Entitic vol] 11.4 fL 6.2-12.0 [facility] Monocyte percentageOrdered B y: Tamie Coleman on 08-30-2024 Monocytes/100 WBC (Bld) 9.4 % 0-10 [facility] Neutrophil percentageOrdered By: Tamie Coleman on 08-30-2024 Neutrophils/100 WBC (Bld) 59.1 % 47-70 [facility] No Panel InformationOrdered By: Tamie Coleman on 08-30-2024 Unsaturated Iron Binding Capacity 311 ug/dL 228-428 [facility] Nucleated red blood cell per centageOrdered By: Tamie Coleman on 08-30-2024 Nucleated RBC/100 WBC (Bld) [Ratio] 0.3 % 0-5 [facility] Oncology Visit Reporton Oncology Visit Report [facility] [address] [place] [address] OFFICE VISIT Date of Service: 08/30/24 1402 MR#: [id number] Acct: [id number] Name: OFELIAANJUM SIMMONS Rep #: [id number] : 1945 From: Tamie Coleman MD Age/Sex: 79/M Location: [facility] Status: Signed HPI Subjective Chief Complaint thyrotoxicosis [...] previous smo (more content not included)... Normal [facility] Platelet countOrdered By: Carla Coleman on 08-30-2024 Platelets (Bld) [#/Vol] 114 10*3/uL Low 150-450 [facility] RBC Auto (Bld) [#/Vol]Ordere d By: Tamie Coleman on 08-30-2024 RBC (Bld) [#/Vol] 4.03 10*6/uL Low 4.6-6.2 [facility] Retic Panelon 08-30-2024 IM RET FRACTION 21.90 High 3.00-15.90 [facility] Comment on above: Order Comment: DR Jericho ROSENBERG ORDERED TSH, FT4ALL OTHER LABS ARE FOR DR COLEMAN Performed By: #### L 506.0400, L100.0100, L501.9520, L503.6550, L503.6030, L100.9950 ####[facility] [address] [place], [place], [id number] RET-HE 38.0 pg High 30-35 [facility] Comment on above: Order Comment: DR Jericho ROSENBERG ORDERED TSH, FT4ALL OTHER LABS ARE FOR DR COELMAN Performed By: #### L 506.0400, L100.0100, L501.9520, L503.6550, L503.6030, L100.9950 ####[facility] [address] [place], [address] Retic Count 2.79 High 0.5-1.5 [facility] Comment on above: Order Comment: DR Jericho ROSENBERG ORDERED TSH, FT4ALL OTHER LABS ARE FOR DR COLEMAN Performed By: #### L 506.0400, L100.0100, L501.9520, L503.6550, L503.6030, L100.9950 ####[facility] [address] [place], [address] Reticulocyte hemoglobin equi valent (RET-He) measurementOrdered By: Tamie Coleman on 08-30-2024 Hemoglobin (Reticulocytes) [Entitic mass] 38.0 pg High 30-35 [facility] Reticulocytes Auto (Bld) [#/ Vol]Ordered By: Tamie Coleman on 08-30-2024 Reticulocytes/100 RBC (Bld) 2.79 % High 0.5-1.5 [facility] Serum or plasma ferritin sandra surement (mass/volume)Ordered By: Tamie Coleman on 08-30-2024 Ferritin [Mass/Vol] 50 ng/mL 37-417 [facility] Serum or plasma iron saturat ion measurement (mass fraction)Ordered By: Tamie Coleman on 08-30-2024 Iron saturation [Mass fraction] 18.0 % 15.0-55.0 [facility] T4 Free Directon 08-30-2024 T4 FREE DIRECT 1.10 ng/dL Normal 0.76-1.46 [facility] Comment on above: Order Comment: DR Jericho ROSENBERG ORDERED TSH, FT4ALL OTHER LABS ARE FOR DR COLEMAN Performed By: #### L 506.0400, L100.0100, L501.9520, L503.6550, L503.6030, L100.9950 ####[facility] [address] [place], [place], [id number] T4 freeOrdered By: Tariq Rosenberg on 08-30-2024 Free T4 [Mass/Vol] 1.10 ng/dL 0.76-1.46 [facility] TSH DL <= 0.005 mIU/L QnOrde red By: Tariq Rosenberg on 08-30-2024 TSH Qn 2.840 uIU/mL 0.300-4.200 [facility] Thyroid Stim Hormone (TSH)on 08-30-2024 TSH 2.840 uIU/mL Normal 0.300-4.200 [facility] Comment on above: Order Comment: DR Jericho ROSENBERG ORDERED TSH, FT4 ALL OTHER LABS ARE FOR DR COLEMAN Performed By: #### L 506.0400, L100.0100, L501.9520, L503.6550, L503.6030, L100.9950 #### [facility] [address] [place], [place], [id number] White blood cell (WBC) count Ordered By: Tamie Coleman on 08-30-2024 WBC (Bld) [#/Vol] 5.8 10*3/uL 4.4-11.0 [facility] High density lipoprotein (HD L) measurementOrdered By: Buck Larsen on 08-16-2024 Cholesterol in HDL [Mass/Vol] 55 mg/dL >40 [facility] Comment on above: The drugs N-Acetylcy steine and Metamizole may falsely depress this assay. Reference Range HDL <40 mg/dL Low HDL Cholesterol HDL >or= 60 mg/dL High HDL Cholesterol Lipid Profileon 08-16-2024 Cholesterol [Mass/Vol] 149 mg/dL Normal 200 [facility] Comment on above: Result Comment: <200 mg/dL Desirable 200-240 mg/dL Borderline >240 mg/dL High Risk Performed By: Madelin### L 500.4100 ####[facility] [address] [place], [address] Cholesterol in HDL [Mass/Vol] 55 mg/dL Normal [facility] Comment on above: Result Comment: The drugs N-Acetylcysteine and Metamizole may falsely depress this assay. Reference Range HDL <40 mg/dL Low HDL Cholesterol HDL >or= 60 mg/dL High HDL Cholesterol Performed By: #### L 500.4100 ####[facility] [address] [place], [address] Cholesterol in LDL [Mass/Vol] 69 mg/dL Normal 0-130 [facility] Comment on above: Performed By: #### L 500.4100 ####[facility] [address] [place], [address] Cholesterol in VLDL [Mass/Vol] 25 mg/dL Normal 5-40 [facility] Comment on above: Performed By: #### L 500.4100 ####[facility] [address] [place], [address] Triglyceride [Mass/Vol] 123 mg/dL Normal [facility] Comment on above: Result Comment: The drugs N-Acetylcysteine and Metamizole may falsely depress this assay. Serum Triglycerides Reference Interval Normal <150 mg/dL Borderline high 150 - 199 mg/dL High 200 - 499 mg/dL Very High > or = 500 mg/dL Performed By: #### L 500.4100 ####[facility] [address] [place], [address] Low density lipoprotein (LDL ) cholesterol measurementOrdered By: Buck Larsen on 08-16-2024 Cholesterol in LDL [Mass/Vol] 69 mg/dL 0-130 [facility] Serum or plasma cholesterol measurement (mass/volume)Ordered By: Buck Larsen on 08-16-2024 Cholesterol [Mass/Vol] 149 mg/dL <200 [facility] Comment on above: <200 mg/dL Desirable 200-240 mg/dL Borderline >240 mg/dL High Risk Triglycerides measurementOrd ered By: Buck Larsen on 08-16-2024 Triglyceride [Mass/Vol] 123 mg/dL <199 [facility] Comment on above: The drugs N-Acetylcy steine and Metamizole may falsely depress this assay.Serum Triglycerides Reference Interval Normal <150 mg/dL Borderline high 150 - 199 mg/dL High 200 - 499 mg/dL Very High > or = 500 mg/dL Very low density lipoprotein (VLDL) cholesterol measurementOrdered By: Buck Larsen on 08-16-2024 Very low density lipoprotein (VLDL) cholesterol measurement 25 mg/dL 5-40 [facility] Cardiology Visit Reporton Cardiology Visit Report [facility] [place] [address] OFFICE VISIT Date of Service: 08/09/24 MR#: [id number] Acct: [id number] Name: ANJUM SERRANO Rep #: [id number] : 1945 Provider: KRISTIAN Weinstein Age/Sex: 79/M Location: [facility] Status: Signed HPI HPI History of [...] 94 Intake Visit Reasons: 6 M FU Multimedia Engineer Required: No Is patient in pain?: No [...] (Reviewed 06/06/24 @ 08:39 by Lisa Madrigal CLINICAL BIOSTATISTICIAN, CLINICAL BIOSTATISTICIAN-C) Hx of right cataract extraction Hx of [...] audible wheeze (more content not included)... Normal [facility] Endocrinology Visit Reporton 07-10-2024 Endocrinology Visit Report [facility] [address] [place] [address] OFFICE VISIT Date of Service: 07/10/24 MR#: [id number] Acct: [id number] Name: ANJUM SERRANO Rep #: [id number] : 1945 Provider: Kristen Oleary Age/Sex: 78/M Location: [facility] Status: Signed Intake Vital Signs 04/10/24 11:05 [...] (Reviewed 06/06/24 @ 08:39 by Lisa Madrigal CLINICAL BIOSTATISTICIAN, CLINICAL BIOSTATISTICIAN-C) Thyrotoxicosis Iron deficiency anemia due to chronic [...] Rosario Signature: Date (if applicable) CC: Normal [facility] Free T3on 06-15-2024 Free T3 [Mass/Vol] 1.8 pg/mL Low 2.18-3.98 [facility] Comment on above: Performed By: #### L 506.0400, L501.66346, L501.9520 ####[facility] [address] [place], [place], [id number] T4 Free Directon 06-15-2024 T4 FREE DIRECT 1.03 ng/dL Normal 0.76-1.46 [facility] Comment on above: Performed By: #### L 506.0400, L501.52416, L501.9520 ####[facility] [address] [place], [place], [id number] Thyroid Stim Hormone (TSH)on 06-15-2024 TSH 2.090 uIU/mL Normal 0.358-3.740 [facility] Comment on above: Performed By: #### L 506.0400, L501.33799, L501.9520 ####[facility] [address] [place], [place], [address] Pulmonary Visit Reporton Pulmonary Visit Report [facility] [address] [place] [address] OFFICE VISIT Date of Service: 06/06/24 MR#: [id number] Acct: [id number] Name: ANJUM SERRANO Rep #: [id number] [...] air Intake Visit Reasons: 4 M FU Multimedia Engineer Required: No DME Vendor: pap- Accompanied by: [...] you fallen in the past year?: Yes [facility] Medical History (Reviewed 06/06/24 @ 08:39 by Lisa Madrigal CLINICAL BIOSTATISTICIAN, CLINICAL BIOSTATISTICIAN-C) Thyrotoxicosis Iron deficiency anemia due to chronic [...] (Reviewed 06/06/24 @ 08:39 by Lisa Madrigal CLINICAL BIOSTATISTICIAN, CLINICAL BIOSTATISTICIAN-C) Hx of right cataract extraction Hx of left cataract extraction History of transurethral resection of prostate History of appendectomy Family History (Reviewed 06/06/24 @ 08:39 by Lisa Madrigal CLINICAL BIOSTATISTICIAN, CLINICAL BIOSTATISTICIAN-C) Mother Heart disease Hyperte (more content not included)... Normal [facility] Endocrinology Visit Reporton 05-18-2024 Endocrinology Visit Report [facility] [address] [place] [address] OFFICE VISIT Date of Service: 05/18/24 MR#: [id number] Acct: [id number] Name: ANJUM SERRANO Rep #: [id number] : 1945 Provider: Kristen Oleary Age/Sex: 78/M Location: [facility] Status: Signed Intake Vital Signs 04/10/24 11:05 [...] bilaterally Co (more content not included)... Normal [facility] Free T3on 05-08-2024 Free T3 [Mass/Vol] 1.8 pg/mL Low 2.18-3.98 [facility] Comment on above: Performed By: #### L 506.0400, L501.92242, L501.9520 ####[facility] [address] [place], [address] T4 Free Directon 05-08-2024 T4 FREE DIRECT 1.21 ng/dL Normal 0.76-1.46 [facility] Comment on above: Performed By: #### L 506.0400, L501.82092, L501.9520 ####[facility] [address] [place], [address] Thyroid Stim Hormone (TSH)on 05-08-2024 TSH Qn m[IU]/L Low 0.358-3.740 [facility] Comment on above: Performed By: #### L 506.0400, L501.95183, L501.9520 ####[facility] [address] [place], [address] Thyroid Uptake Single or Mul ton 04-12-2024 Thyroid Uptake Single or Mult [facility] [address] [place] [address] Thyroid Uptake Single or Mult MR#: [id number] Acct: [id number] Name: ANJUM SERRANO Rep #: [id number] : 1945 M 78 From: William Arango PCP: Dr. Reema Myers MD Status: REG CLI Study: Thyroid Uptake Single or Mult Date of Exam: 1 Exam# [id number] Ordering [place]: [place] [id number] CLINICAL: 78-year-old male with history of clinical [...] Pending Final Proof Editing CC: Dr. Reema Myesr MD Summer [employer] Counselor: Signed Normal [facility] Endocrinology Visit Reporton 04-10-2024 Endocrinology Visit Report [facility] [address] [place] [address] OFFICE VISIT Date of Service: 04/10/24 MR#: [id number] Acct: [id number] Name: ANJUM SERRANO Rep #: [id number] : 1945 Provider: Kristen Oleary Age/Sex: 78/M Location[place] [facility] Status: Signed Intake Vital Signs 03/02/24 14:27 [...] Const Gener (more content not included)... Normal [facility] Thyroid Antibodieson 024 TG AB < 1.0 Normal 0.0-0.9 [facility] Comment on above: Result Comment: Thyr oglobulin Antibody measured by Lalitha Emely Methodology It should be noted that the presence of thyroglobulin antibodies may not be pathogenic nor diagnostic, especially at very low levels. The assay patient access representative has found that four percent of individuals without evidence of thyroid disease or autoimmunity will have positive TgAb levels up to 4 IU/mL. Performed at: [address] [id number] [employer] Driver: Prince Ho PhD, Phone: [phone] Performed By: #### L 501.68075, L501.9520, L506.0400, L3300.6750 #### [facility] [address] [facility] [place], [address] THYR PEROX AB < 9 Normal 0-34 [facility] Comment on above: Performed By: #### L 501.70222, L501.9520, L506.0400, L3300.6750 #### [facility] [address] [place], [address] Free T3on 04-04-2024 Free T3 [Mass/Vol] 8.1 pg/mL High 2.18-3.98 [facility] Comment on above: Performed By: #### L 501.35369, L501.9520, L506.0400, L3300.6750 #### [facility] [address] [facility] [place], [address] T4 Free Directon 04-04-2024 T4 FREE DIRECT 3.60 ng/dL High 0.76-1.46 [facility] Comment on above: Performed By: #### L 501.82006, L501.9520, L506.0400, L3300.6750 #### [facility] [address] [place], [address] Thyroid Stim Hormone (TSH)on 04-04-2024 TSH Qn m[IU]/L Low 0.358-3.740 [facility] Comment on above: Performed By: #### L 501.61499, L501.9520, L506.0400, L3300.6750 #### [facility] [address] [place], [address] CBC W/Diff, Automatedon 09-0 5-2023 Absolute Lymph 0.88 X10 3/uL Normal 0.83-4.51 [facility] Comment on above: Performed By: #### L 100.0100, L503.6550, L503.6030, L503.0105 ####[facility] [address] [place], [address] Absolute Neut 2.4 X10 3/uL Normal 2.0-7.7 [facility] Comment on above: Performed By: #### L 100.0100, L503.6550, L503.6030, L503.0105 ####[facility] [address] [place], [address] Basophils/100 WBC (Bld) 1.3 % High 0-1 [facility] Comment on above: Performed By: #### L 100.0100, L503.6550, L503.6030, L503.0105 ####[facility] [address] [place], [address] Eosinophils/100 WBC (Bld) 9.7 % High 0-5 [facility] Comment on above: Performed By: #### L 100.0100, L503.6550, L503.6030, L503.0105 ####[facility] [address] [place], [address] Erythrocyte distribution width (RBC) [Ratio] 16.2 % High 11.6-14.6 [facility] Comment on above: Performed By: #### L 100.0100, L503.6550, L503.6030, L503.0105 ####[facility] [address] [place], [address] Hematocrit (Bld) [Volume fraction] 34.0 % Low 40-54 [facility] Comment on above: Performed By: #### L 100.0100, L503.6550, L503.6030, L503.0105 ####[facility] [address] [place], [address] Hemoglobin (Bld) [Mass/Vol] 11.0 g/dL Low 13.0-16.5 [facility] Comment on above: Performed By: #### L 100.0100, L503.6550, L503.6030, L503.0105 ####[facility] [address] [place], [address] IG% 4.300 High 0.0-0.9 [facility] Comment on above: Result Comment: IG% - Immature Granulocytes (promyelocytes, myelocytes and metamyelocytes) > 1% indicates that a LEFT SHIFT is Present. Performed By: #### L 100.0100, L503.6550, L503.6030, L503.0105 ####[facility] [address] [place], [address] Lymphocytes/100 WBC (Bld) 19.8 % Normal 19-41 [facility] Comment on above: Performed By: #### L 100.0100, L503.6550, L503.6030, L503.0105 ####[facility] [address] [place], [address] MCH (RBC) [Entitic mass] 32.4 pg High 27.0-32.0 [facility] Comment on above: Performed By: #### L 100.0100, L503.6550, L503.6030, L503.0105 ####[facility] [facility] [address] [place], [address] MCHC (RBC) [Mass/Vol] 32.4 g/dL Normal 32-[address] [facility] Comment on above: Performed By: #### L 100.0100, L503.6550, L503.6030, L503.0105 ####[facility] [address] [place], [address] MCV (RBC) [Entitic vol] 100.0 fL High 80-94 [facility] Comment on above: Performed By: #### L 100.0100, L503.6550, L503.6030, L503.0105 ####[facility] [address] [place], [address] Monocytes/100 WBC (Bld) 10.6 % High 0-10 [facility] Comment on above: Performed By: #### L 100.0100, L503.6550, L503.6030, L503.0105 ####[facility] [address] [place], [address] Neutrophils/100 WBC (Bld) 54.3 % Normal 47-70 [facility] Comment on above: Performed By: #### L 100.0100, L503.6550, L503.6030, L503.0105 ####[facility] [address] [place], [address] Nucleated RBC (Bld) [#/Vol] 0.4 10*3/uL Normal 0-5 [facility] Comment on above: Performed By: #### L 100.0100, L503.6550, L503.6030, L503.0105 ####[facility] [address] [place], [address] Platelet mean volume (Bld) [Entitic vol] 10.2 fL Normal 6.2-12.0 [facility] Comment on above: Performed By: #### L 100.0100, L503.6550, L503.6030, L503.0105 ####[facility] [address] [place], [address] Platelets (Bld) [#/Vol] 135 10*3/uL Low 150-450 [facility] Comment on above: Performed By: #### L 100.0100, L503.6550, L503.6030, L503.0105 ####[facility] [address] [place], [address] RBC (Bld) [#/Vol] 3.40 10*6/uL Low 4.6-6.2 [facility] Comment on above: Performed By: #### L 100.0100, L503.6550, L503.6030, L503.0105 ####[facility] [address] [place], [address] RDW SD 57.2 fl High 35.1-43.9 [facility] Comment on above: Performed By: #### L 100.0100, L503.6550, L503.6030, L503.0105 ####[facility] [address] [place], [address] WBC (Bld) [#/Vol] 4.5 10*3/uL Normal 4.4-11.0 [facility] Comment on above: Performed By: #### L 100.0100, L503.6550, L503.6030, L503.0105 ####[facility] [address] [place], [address] Ferritinon 03-02-2024 Ferritin [Mass/Vol] 28 ng/mL Normal 26-388 [facility] Comment on above: Performed By: #### L 100.0100, L503.6550, L503.6030, L503.0105 ####[facility] [address] [place], [address] Iron+Iron Binding Capacityon 03-02-2024 Iron [Mass/Vol] 93 ug/dL Normal 65-175 [facility] Comment on above: Performed By: #### L 100.0100, L503.6550, L503.6030, L503.0105 ####[facility] [address] [place], [address] IRON SATURATION 24.2 Normal 15.0-55.0 [facility] Comment on above: Performed By: #### L 100.0100, L503.6550, L503.6030, L503.0105 ####[facility] [address] [place], [address] TIBC 384 ug/dL Normal 250-450 [facility] Comment on above: Performed By: #### L 100.0100, L503.6550, L503.6030, L503.0105 ####[facility] [address] [place], [address] Oncology Visit Reporton Oncology Visit Report [facility] [address] [place] [address] OFFICE VISIT Date of Service: 03/02/24 1419 MR#: [id number] Acct: [id number] Name: ANJUM SERRANO Rep #: [id number] : 1945 From: Tamie Coleman MD Age/Sex: 78/M Location: [facility] Status: Signed HPI Subjective Date of Service [...] black discoloration of the stool since then. [facility] Medical History Iron deficiency anemia due to [...] 7.0 L (more content not included)... Normal [facility] Vitamin B12on 03-02-2024 Cobalamin (Vitamin B12) [Mass/Vol] 1092 pg/mL High 211-911 [facility] Comment on above: Performed By: #### L 100.0100, L503.6550, L503.6030, L503.0105 ####[facility] [address] [place], [address] Vitamin B12 measurementOrder ed By: Tamie Coleman on 03-02-2024 Cobalamin (Vitamin B12) [Mass/Vol] 1092 pg/mL High 211-911 [facility] Cardiology Visit Reporton Cardiology Visit Report [facility] [address] [place], [place] [address] OFFICE VISIT Date of Service: 02/10/24 MR#: [id number] Acct: [id number] Name: ANJUM SERRANO Rep #: [id number] : 1945 Provider: SHIRA ray Age/Sex: 78/M Location: [facility] Status: Signed HPI [facility] History of Present Illness Details: [...] 94 Intake Visit Reasons: 3 M FU Multimedia Engineer Required: No Is patient in pain?: No [...] for dizzine (more content not included)... Normal [facility] Gastroenterology Visit Repor ton 02-10-2024 Gastroenterology Visit Report [facility] [address] [place] [address] OFFICE VISIT Date of Service: 02/10/24 MR#: [id number] Acct: [id number] Name: ANJUM SERRANO Rep #: [id number] : 1945 Provider: Kaushal Jarvis DO Age/Sex: 78/M Location: [facility] [place] Status: Signed Intake Vital Signs 11/09/23 [...] 8.15.24 pt reports that since returning from [place] 2 weeks ago he has been feeling [...] Appearance: average body habitus and well nourished HENUT Head: normal to inspection Ears: hearing grossly normal bilaterally Nose: external nose normal Face and sinus: normal facial exam Mouth: oral mucosae normal Throat: posterior oropharynx normal Eyes General: appearance normal, both eyes and all related structures Neck Neck: normal visual inspection Chest Chest palpation inspection: normal inspection of the chest and normal palpatio (more content not included)... Normal [facility] Pulmonary Visit Reporton Pulmonary Visit Report [facility] [address] [facility] [place] [address] OFFICE VISIT Date of Service: 02/02/24 MR#: [id number] Acct: [id number] Name: ANJUM SERRANO Rep #: [id number] : 1945 Provider: SHIRA Madrigal Age/Sex: 78/M Location: [facility] Status: Signed Assessment and Plan Assessment and [...] 0RF Plan Details Follow Up: 4 Months ([facility]) HPI 3 M FU Chief Complaint: Routine [...] did improve, however he did travel to [facility] and became symptomatic upon his return. He also reports wheezing. He denies any chest tightness, chest pain or palpitations. He denies any fever, chills or body aches. He reports excellent compliance with his PAP device. He does admit that he did not take it to [facility] on vacation, this explains the 1 week [...] Reasons: 3 M FU Chief Complaint: anemia Multimedia Engineer Required: No DME Vendor: pap- Accompanied by: [...] tablet S (more content not included)... Normal [facility] CBC W/Diff, Automatedon 12-27 Anisocytosis Ql (Bld) 2+ Normal [facility] Comment on above: Performed By: #### L 503.2903, L100.0100, L503.6030 ####[facility] [address] [place], [address] Ferritinon 01-24-2024 Ferritin [Mass/Vol] 36 ng/mL Normal 26-388 [facility] Comment on above: Performed By: #### L 503.6550, L100.0100, L503.6030 ####[facility] [address] [place], [address] Iron+Iron Binding Capacityon 01-24-2024 Iron [Mass/Vol] 59 ug/dL Low 65-175 [facility] Comment on above: Performed By: #### L 503.6550, L100.0100, L503.6030 ####[facility] [address] [place], [address] IRON SATURATION 15.6 Normal 15.0-55.0 [facility] Comment on above: Performed By: #### L 503.6550, L100.0100, L503.6030 ####[facility] [address] [place], [address] TIBC 377 ug/dL Normal 250-450 [facility] Comment on above: Performed By: #### L 503.6550, L100.0100, L503.6030 ####[facility] [address] [place], [address] Absolute lymphocyte countOrd ered By: Shawn Moore on 11-06-2023 Lymphocytes Auto (Unsp spec) [#/Vol] 0.97 10*3/uL 0.83-4.51 [facility] Basophil percentageOrdered B y: Shawn Moore on 11-06-2023 Basophil percentage Not Reportable [facility] Hemoglobin (Bld) [Mass/Vol] 7.4 g/dL 13.0-16.5 [facility] Neutrophils (Bld) [#/Vol] 4.2 10*3/uL 2.0-7.7 [facility] WBC (Bld) [#/Vol] 6.1 10*3/uL 4.4-11.0 [facility] Blood band neutrophil count as percentage of total leukocytesOrdered By: Shawn Moore on 11-06-2023 Band form neutrophils/100 WBC (Bld) 2 % 0-5 [facility] Blood basophils/100 leukocyt esOrdered By: Lilly Navarrete on 11-06-2023 Basophils/100 WBC (Bld) 1 % 0-1 [facility] Blood eosinophils/100 leukoc ytesOrdered By: Shawn Moore on 11-06-2023 Eosinophils/100 WBC (Bld) 5 % 0-5 [facility] Blood lymphocytes/100 leukoc ytesOrdered By: Shawn Moore on 11-06-2023 Lymphocytes/100 WBC (Bld) 16 % 19-41 [facility] Blood metamyelocytes/100 ken kocytesOrdered By: Shawn Moore on 11-06-2023 Metamyelocytes/100 WBC (Bld) 2 % 0-1 [facility] Blood monocytes/100 leukocyt esOrdered By: Shawn Moore on 11-06-2023 Monocytes/100 WBC (Bld) 5 % 0-10 [facility] Blood platelet adequacy dete ction by light microscopyOrdered By: Shawn Moore on 11-06-2023 Platelets LM Ql (Bld) SLT DEC ADEQ [facility] Blood polychromasia detectio n by light microscopyOrdered By: Lilly Navarrete on 11-06-2023 Polychromasia LM Ql (Bld) 2+ [facility] Blood segmented neutrophils/ 100 leukocytesOrdered By: Shawn Moore on 11-06-2023 Segmented neutrophils/100 WBC (Bld) 66 % 47-70 [facility] Determination of erythrocyte mean corpuscular volume (MCV)Ordered By: Shawn Moore on 11-06-2023 MCV (RBC) [Entitic vol] 95.0 fL 80-94 [facility] Erythrocyte distribution wid th ratioOrdered By: Shawn Moore on 11-06-2023 Erythrocyte distribution width (RBC) [Ratio] 17.0 % 11.6-14.6 [facility] Erythrocyte distribution wid th standard deviationOrdered By: Shawn Moore on 11-06-2023 Erythrocyte distribution width (RBC) [Entitic vol] 58.3 fL 35.1-43.9 [facility] Hematocrit Auto (Bld) [Volum e fraction]Ordered By: Shawn Moore on 11-06-2023 Hematocrit (Bld) [Volume fraction] 24.5 % 40-54 [facility] Laboratory - Hematology and Cell countsOrdered By: Shawn Moore on 11-06-2023 MCH (RBC) [Entitic mass] 28.7 pg 27.0-32.0 [facility] MCHC (RBC) [Mass/Vol] 30.2 g/dL 32-[address] [facility] Myelocytes/100 WBC (Bld) 4 % 0-0 [facility] Platelet mean volume (Bld) [Entitic vol] 10.4 fL 6.2-12.0 [facility] Platelets (Bld) [#/Vol] 138 10*3/uL 150-450 [facility] Laboratory - Hematology and Cell countsOrdered By: Lilly Navarrete on 11-06-2023 Anisocytosis Ql (Bld) 2+ [facility] Ovalocyte detectionOrdered B y: Lilly Navarrete on 11-06-2023 Ovalocytes LM Ql (Bld) 2+ [facility] RBC Auto (Bld) [#/Vol]Ordere d By: Shawn Moore on 11-06-2023 RBC (Bld) [#/Vol] 2.58 10*6/uL 4.6-6.2 [facility] Red blood cell stomatocyte d etectionOrdered By: Lilly Navarrete on 11-06-2023 Stomatocytes LM Ql (Bld) RARE [facility] Review by pathologistOrdered By: Shawn Moore on 11-06-2023 Pathologist review Marcos (Unsp spec) [Interp] October [facility] Total cell countOrdered By: Shawn Moore on 11-06-2023 Cells counted Molgen (Bld/Tiss) [#] 100 MANUAL DIFF [facility] Absolute lymphocyte countOrd ered By: Roberto Hussein on 11-05-2023 Lymphocytes Auto (Unsp spec) [#/Vol] 1.27 10*3/uL 0.83-4.51 [facility] Activated partial thrombopla stin time (aPTT) in platelet poor plasma by coagulation aOrdered By: Gilberto Aquino on 11-05-2023 aPTT Coag (PPP) [Time] 26.8 s 24.1-36.2 [facility] Basophil percentageOrdered B y: Roberto Hussein on 11-05-2023 Basophil percentage Not Reportable [facility] Chloride [Moles/Vol] 111 mmol/L 98-107 [facility] Glucose [Mass/Vol] 112 mg/dL 74-106 [facility] Comment on above: Fasting Glucose resu lt from 100 to 125 mg/dL suggests IMPAIRED HOMEOSTASIS per A.D.A. criteria. Hemoglobin (Bld) [Mass/Vol] 7.6 g/dL 13.0-16.5 [facility] Neutrophils (Bld) [#/Vol] 4.7 10*3/uL 2.0-7.7 [facility] Potassium [Moles/Vol] 3.9 mmol/L 3.5-5.[address] [facility] Sodium [Moles/Vol] 141 mmol/L 136-145 [facility] WBC (Bld) [#/Vol] 7.5 10*3/uL 4.4-11.0 [facility] Basophil percentageOrdered B y: Gilberto Aquino on 11-05-2023 Bilirubin [Mass/Vol] 0.90 mg/dL 0.20-1.00 [facility] Comment on above: For patients on eltr ombopag therapy, use of [employer] TBIL is not recommended. Protein [Mass/Vol] 6.4 g/dL 6.4-8.2 [facility] Blood band neutrophil count as percentage of total leukocytesOrdered By: Roberto Hussein on 11-05-2023 Band form neutrophils/100 WBC (Bld) 3 % 0- [facility] Blood eosinophils/100 leukoc ytesOrdered By: Roberto Hussein on 11-05-2023 Eosinophils/100 WBC (Bld) 6 % 0-5 [facility] Blood lymphocytes/100 leukoc ytesOrdered By: Roberto Hussein on 11-05-2023 Lymphocytes/100 WBC (Bld) 17 % 19-41 [facility] Blood metamyelocytes/100 ken kocytesOrdered By: Roberto Hussein on 11-05-2023 Metamyelocytes/100 WBC (Bld) 2 % 0-1 [facility] Blood monocytes/100 leukocyt esOrdered By: Roberto Hussein on 11-05-2023 Monocytes/100 WBC (Bld) 9 % 0-10 [facility] Blood platelet adequacy dete ction by light microscopyOrdered By: Roberto Hussein on 11-05-2023 Platelets LM Ql (Bld) ADEQUATE ADEQ [facility] Blood segmented neutrophils/ 100 leukocytesOrdered By: Roberto Hussein on 11-05-2023 Segmented neutrophils/100 WBC (Bld) 59 % 47-70 [facility] Determination of erythrocyte mean corpuscular volume (MCV)Ordered By: Roberto Hussein on 11-05-2023 MCV (RBC) [Entitic vol] 94.4 fL 80-94 [facility] Direct bilirubinOrdered By: Gilberto Aquino on 11-05-2023 Bilirubin.direct [Mass/Vol] 0.25 mg/dL 0.00-0.30 [facility] Erythrocyte distribution wid th ratioOrdered By: Roberto Hussein on 11-05-2023 Erythrocyte distribution width (RBC) [Ratio] 17.7 % 11.6-14.6 [facility] Erythrocyte distribution wid th standard deviationOrdered By: Roberto Hussein on 11-05-2023 Erythrocyte distribution width (RBC) [Entitic vol] 59.3 fL 35.1-43.9 [facility] Hematocrit Auto (Bld) [Volum e fraction]Ordered By: Roberto Hussein on 11-05-2023 Hematocrit (Bld) [Volume fraction] 25.2 % 40-54 [facility] Laboratory - Chemistry and C hemistry - challengeOrdered By: Gilberto Aquino on 11-05-2023 ALP [Catalytic activity/Vol] 47 U/L 45-117 [facility] ALT [Catalytic activity/Vol] 19 U/L 16-61 [facility] Globulin (S) [Mass/Vol] 3.2 g/dL 2.2-4.2 [facility] Laboratory - Chemistry and C hemistry - challengeOrdered By: Roberto Hussein on 11-05-2023 CO2 [Moles/Vol] 26.0 mmol/L 21.0-32.0 [facility] Urea nitrogen/Creatinine [Mass ratio] 12.7 mg/mg 10-20 [facility] Laboratory - CoagulationOrde red By: Gilberto Aquino on 05-10-2024 INR Coag (Bld) [Relative time] 1.2 {INR} [facility] PT Coag (PPP) [Time] 15.5 s 11.7-14.9 [facility] Laboratory - Hematology and Cell countsOrdered By: Roberto Hussein on 11-05-2023 Anisocytosis Ql (Bld) 1+ [facility] MCH (RBC) [Entitic mass] 28.5 pg 27.0-32.0 [facility] MCHC (RBC) [Mass/Vol] 30.2 g/dL 32-[address] [facility] Comment on above: Delta: 28.6 on 11/03-1345 Myelocytes/100 WBC (Bld) 4 % 0-0 [facility] Platelet mean volume (Bld) [Entitic vol] 10.4 fL 6.2-12.0 [facility] Platelets (Bld) [#/Vol] 150 10*3/uL 150-450 [facility] No Panel InformationOrdered By: Roberto Hussein on 11-05-2023 Estimated Creatinine Clearance Calc 69.35 ml/min [facility] Estimated GFR (MDRD) Amer 83 mL/min >60 [facility] Comment on above: GFR Calc Estimated GFR (MDRD) Non-Af Amer 68 mL/min >60 [facility] Comment on above: Non- GFR Calc RBC Auto (Bld) [#/Vol]Ordere d By: Roberto Hussein on 11-05-2023 RBC (Bld) [#/Vol] 2.67 10*6/uL 4.6-6.2 [facility] RBC morphologyOrdered By: Negrita Hussein on 11-05-2023 RBC morphology finding Nom (Bld) N CHROM NORMAL NORM C&C [facility] Review by pathologistOrdered By: Roberto Hussein on 11-05-2023 Pathologist review Marcos (Unsp spec) [Interp] May foll [facility] Serum or plasma calcium aditya urement (mass/volume)Ordered By: Roberto Hussein on 11-05-2023 Calcium [Mass/Vol] 8.4 mg/dL 8.5-10.1 [facility] Serum or plasma creatinine m easurement (mass/volume)Ordered By: Roberto Hussein on 11-05-2023 Creatinine [Mass/Vol] 1.10 mg/dL 0.70-1.[address] [facility] Comment on above: The validity of the calculated GFR & GFRAA in patients over 70 years has not been determined. Clinical correlation is essential. Serum or plasma urea nitroge n measurement (mass/volume)Ordered By: Roberto Hussein on 11-05-2023 Urea nitrogen [Mass/Vol] 14 mg/dL 7-18 [facility] Thin prep Papanicolaou smear with manual screeningOrdered By: Gilberto Aquino on 11-05-2023 Thin prep Papanicolaou smear with manual screening 3.2 g/dL 3.2-5.0 [facility] Thin prep Papanicolaou smear with manual screening 11 U/L 15-37 [facility] Thin prep Papanicolaou smear with manual screeningOrdered By: Roberto Hussein on 11-05-2023 Thin prep Papanicolaou smear with manual screening 4 5-15 [facility] Total cell countOrdered By: Roberto Hussein on 11-05-2023 Cells counted Molgen (Bld/Tiss) [#] 100 MANUAL DIFF [facility] Absolute lymphocyte countOrd ered By: Rhea Rao on 11-04-2023 Lymphocytes Auto (Unsp spec) [#/Vol] 1.00 10*3/uL 0.83-4.51 [facility] Comment on above: Previous reported re sult: 1.12 X10^3/uLEdited by: BETTE on 11/04/23:1406 Automated lymphocyte count a s percentage of total leukocytesOrdered By: Rhea Rao on 11-04-2023 Lymphocytes/100 WBC Auto (Unsp spec) CLINICAL BIOSTATISTICIAN [facility] Comment on above: Previous reported re sult: 12.9 %Edited by: BETTE on 11/04/23:1406 Basophil percentageOrdered B y: Rhea Rao on 11-04-2023 Basophil percentage CLINICAL BIOSTATISTICIAN [facility] Comment on above: Previous reported re sult: 60.8 %Edited by: BETTE on 11/04/23:1406 Previous reported re sult: 10.5 %Edited by: BETTE on 11/04/23:1406 Previous reported re sult: 7.8 %Edited by: BETTE on 11/04/23:1406 Previous reported re sult: 0.6 %Edited by: BETTE on 11/04/23:1406 Bilirubin [Mass/Vol] 0.50 mg/dL 0.20-1.00 [facility] Comment on above: For patients on eltr ombopag therapy, use of [employer] TBIL is not recommended. Chloride [Moles/Vol] 109 mmol/L 98-107 [facility] Glucose [Mass/Vol] 165 mg/dL 74-106 [facility] Comment on above: Fasting Glucose resu lt greater than or equal to 126 mg/dL suggests DIABETES MELLITUS per A.D.A. criteria. Hemoglobin (Bld) [Mass/Vol] 5.5 g/dL 13.0-16.5 [facility] Comment on above: RESULTS CALLED TO GEOFF 11/04/23 1404 Denia Grace.REPORT READ BACK BY DANIS. Neutrophils (Bld) [#/Vol] 6.1 10*3/uL 2.0-7.7 [facility] Comment on above: Previous reported re sult: 5.3 X10^3/uLEdited by: BETTE on 11/04/23:140 Potassium [Moles/Vol] 4.3 mmol/L 3.5-5.[address] [facility] Protein [Mass/Vol] 6.5 g/dL 6.4-8.2 [facility] Sodium [Moles/Vol] 140 mmol/L 136-145 [facility] WBC (Bld) [#/Vol] 8.7 10*3/uL 4.4-11.0 [facility] Blood band neutrophil count as percentage of total leukocytesOrdered By: Rhea Rao on 11-04-2023 Band form neutrophils/100 WBC (Bld) 2 % 0-5 [facility] Blood basophils/100 leukocyt esOrdered By: Rhea Rao on 11-04-2023 Basophils/100 WBC (Bld) 2 % 0-1 [facility] Blood eosinophils/100 leukoc ytesOrdered By: Rhea Rao on 11-04-2023 Eosinophils/100 WBC (Bld) 5 % 0-5 [facility] Blood lymphocytes/100 leukoc ytesOrdered By: Rhea Rao on 11-04-2023 Lymphocytes/100 WBC (Bld) 12 % 19-41 [facility] Blood metamyelocytes/100 ken kocytesOrdered By: Rhea Rao on 11-04-2023 Metamyelocytes/100 WBC (Bld) 3 % 0-1 [facility] Blood monocytes/100 leukocyt esOrdered By: Rhea Rao on 11-04-2023 Monocytes/100 WBC (Bld) 4 % 0-10 [facility] Blood platelet adequacy dete ction by light microscopyOrdered By: Rhea Rao on 11-04-2023 Platelets LM Ql (Bld) ADEQUATE ADEQ [facility] Blood promyelocytes/100 leuk ocytesOrdered By: Rhea Rao on 11-04-2023 Promyelocytes/100 WBC (Bld) 3 % 0-0 [facility] Blood segmented neutrophils/ 100 leukocytesOrdered By: Rhea Rao on 11-04-2023 Segmented neutrophils/100 WBC (Bld) 68 % 47-70 [facility] Determination of erythrocyte mean corpuscular volume (MCV)Ordered By: Rhea Rao on 11-04-2023 MCV (RBC) [Entitic vol] 99.0 fL 80-94 [facility] Erythrocyte distribution wid th ratioOrdered By: Rhea Rao on 11-04-2023 Erythrocyte distribution width (RBC) [Ratio] 17.2 % 11.6-14.6 [facility] Erythrocyte distribution wid th standard deviationOrdered By: Rhea Rao on 11-04-2023 Erythrocyte distribution width (RBC) [Entitic vol] 61.5 fL 35.1-43.9 [facility] Hematocrit Auto (Bld) [Volum e fraction]Ordered By: Rhea Rao on 11-04-2023 Hematocrit (Bld) [Volume fraction] 19.2 % 40-54 [facility] Immature granulocytes/100 WB C Auto (Bld)Ordered By: Rhea Rao on 11-04-2023 Immature granulocytes/100 WBC (Bld) CLINICAL BIOSTATISTICIAN [facility] Comment on above: Previous reported re sult: 7.400 %Edited by: BETTE on 11/04/23:1406IG% - Immature Granulocytes (promyelocytes, myelocytes and metamyelocytes) > 1% indicates that a LEFT SHIFT is Present. Laboratory - Chemistry and C hemistry - challengeOrdered By: Rhea Rao on 11-04-2023 Albumin/Globulin [Mass ratio] 1.0 {ratio} 0.9-2.4 [facility] ALP [Catalytic activity/Vol] 46 U/L 45-117 [facility] ALT [Catalytic activity/Vol] 21 U/L 16-61 [facility] CO2 [Moles/Vol] 26.0 mmol/L 21.0-32.0 [facility] Globulin (S) [Mass/Vol] 3.3 g/dL 2.2-4.2 [facility] Natriuretic peptide B (Bld) [Mass/Vol] 254.7 pg/mL 0-100 [facility] Urea nitrogen/Creatinine [Mass ratio] 18.8 mg/mg 10-20 [facility] Laboratory - Hematology and Cell countsOrdered By: Rhea Rao on 11-04-2023 MCH (RBC) [Entitic mass] 28.4 pg 27.0-32.0 [facility] MCHC (RBC) [Mass/Vol] 28.6 g/dL 32-[address] [facility] Myelocytes/100 WBC (Bld) 1 % 0-0 [facility] Platelet mean volume (Bld) [Entitic vol] 10.9 fL 6.2-12.0 [facility] Platelets (Bld) [#/Vol] 160 10*3/uL 150-450 [facility] Lower GI hemoglobin IA Ql (S tl)Ordered By: Rhea Rao on 11-04-2023 Stool Occult Blood (FANNY) Positive [facility] No Panel InformationOrdered By: Rhea Rao on 11-04-2023 Estimated GFR (MDRD) Amer 77 mL/min >60 [facility] Comment on above: GFR Calc Estimated GFR (MDRD) Non-Af Amer 64 mL/min >60 [facility] Comment on above: Non- GFR Calc Nucleated Red Blood Cells % CLINICAL BIOSTATISTICIAN [facility] Comment on above: Previous reported re sult: 1.2 %Edited by: BETTE on 11/04/23:1406 Troponin I High Sensitivity 11 pg/mL 3.0-78.0 [facility] Comment on above: Please Note: New Laila t Units and Gender Specific Reference Ranges. For more information see Policy Stat Procedure [employer] High Sensitivity Troponin (TNIH) and attachments. RBC Auto (Bld) [#/Vol]Ordere d By: Rhea Rao on 11-04-2023 RBC (Bld) [#/Vol] 1.94 10*6/uL 4.6-6.2 [facility] RBC morphologyOrdered By: Isa Rao on 11-04-2023 RBC morphology finding Nom (Bld) NORM C+C NORMAL NORM C&C [facility] Review by pathologistOrdered By: Rhea Rao on 11-04-2023 Pathologist review Marcos (Unsp spec) [Interp] October [facility] Serum or plasma calcium aditya urement (mass/volume)Ordered By: Rhea Roa on 11-04-2023 Calcium [Mass/Vol] 8.7 mg/dL 8.5-10.1 [facility] Serum or plasma creatinine m easurement (mass/volume)Ordered By: Rhea Rao on 11-04-2023 Creatinine [Mass/Vol] 1.17 mg/dL 0.70-1.[address] [facility] Comment on above: The validity of the calculated GFR & GFRAA in patients over 70 years has not been determined. Clinical correlation is essential. Serum or plasma urea nitroge n measurement (mass/volume)Ordered By: Rhea Rao on 11-04-2023 Urea nitrogen [Mass/Vol] 22 mg/dL 7-18 [facility] Thin prep Papanicolaou smear with manual screeningOrdered By: Rhea Rao on 11-04-2023 Thin prep Papanicolaou smear with manual screening 3.2 g/dL 3.2-5.0 [facility] Thin prep Papanicolaou smear with manual screening 13 U/L 15-37 [facility] Thin prep Papanicolaou smear with manual screening 5 5-15 [facility] Total cell countOrdered By: Rhea Rao on 11-04-2023 Cells counted Molgen (Bld/Tiss) [#] 100 MANUAL DIFF [facility] Lower GI hemoglobin IA Ql (S tl)Ordered By: Rick Mccormack on 09-13-2023 Stool Occult Blood (FANNY) Positive [facility] Absolute lymphocyte countOrd ered By: Rick Torresonnell on 09-09-2023 Lymphocytes Auto (Unsp spec) [#/Vol] 1.33 10*3/uL 0.83-4.51 [facility] Comment on above: Previous reported re sult: 0.92 X10^3/uLEdited by: DOM on 09/09/23:1442 AMENDED REPORT 09/09/231441 Absolute Lymph previously reported as: 0.92 X10^3/uL Automated lymphocyte count a s percentage of total leukocytesOrdered By: Rick Mccormack on 09-09-2023 Lymphocytes/100 WBC Auto (Unsp spec) CLINICAL BIOSTATISTICIAN [facility] Comment on above: Previous reported re sult: 13.0 %Edited by: DOM on 09/09/23:1441 AMENDED REPORT 09/09/23 144 LY% previously reported as: 13.0 L % Basophil percentageOrdered B y: Rick Mccormack on 09-09-2023 Basophil percentage CLINICAL BIOSTATISTICIAN [facility] Comment on above: Previous reported re [...] 0.7 % Chloride [Moles/Vol] 108 mmol/L 98-107 [facility] Glucose [Mass/Vol] 143 mg/dL 74-106 [facility] Comment on above: Fasting Glucose resu lt greater than or equal to 126 mg/dL suggests DIABETES MELLITUS per A.D.A. criteria. Hemoglobin (Bld) [Mass/Vol] 9.8 g/dL 13.0-16.5 [facility] Neutrophils (Bld) [#/Vol] 4.5 10*3/uL 2.0-7.7 [facility] Comment on above: Previous reported re sult: 4.0 X10^3/uLEdited by: DOM on 09/09/23:1442 AMENDED REPORT 09/09/23 1442 Absolute Neut previously reported as: 4.0 X10^3/uL Potassium [Moles/Vol] 4.1 mmol/L 3.5-5.[address] [facility] Sodium [Moles/Vol] 140 mmol/L 136-145 [facility] WBC (Bld) [#/Vol] 7.1 10*3/uL 4.4-11.0 [facility] Blood eosinophils/100 leukoc ytesOrdered By: Rick Mccormack on 09-09-2023 Eosinophils/100 WBC (Bld) 10 % 0-5 [facility] Blood lymphocytes/100 leukoc ytesOrdered By: Rick Mccormack on 09-09-2023 Lymphocytes/100 WBC (Bld) 19 % 19-41 [facility] Blood metamyelocytes/100 ken kocytesOrdered By: Rick Mccormack on 09-09-2023 Metamyelocytes/100 WBC (Bld) 2 % 0-1 [facility] Blood monocytes/100 leukocyt esOrdered By: Rick Mccormack on 09-09-2023 Monocytes/100 WBC (Bld) 4 % 0-10 [facility] Blood platelet adequacy dete ction by light microscopyOrdered By: Rick Mccormack on 09-09-2023 Platelets LM Ql (Bld) ADEQUATE ADEQ [facility] Blood segmented neutrophils/ 100 leukocytesOrdered By: Rick Mccormack on 09-09-2023 Segmented neutrophils/100 WBC (Bld) 64 % 47-70 [facility] Determination of erythrocyte mean corpuscular volume (MCV)Ordered By: Rick Mccormack on 09-09-2023 MCV (RBC) [Entitic vol] 99.4 fL 80-94 [facility] Erythrocyte distribution wid th ratioOrdered By: Rick Mccormack on 09-09-2023 Erythrocyte distribution width (RBC) [Ratio] 16.8 % 11.6-14.6 [facility] Erythrocyte distribution wid th standard deviationOrdered By: Rick Mccormack on 09-09-2023 Erythrocyte distribution width (RBC) [Entitic vol] 61.6 fL 35.1-43.9 [facility] Hematocrit Auto (Bld) [Volum e fraction]Ordered By: Rick Mccormack on 09-09-2023 Hematocrit (Bld) [Volume fraction] 31.6 % 40-54 [facility] Immature granulocytes/100 WB C Auto (Bld)Ordered By: Rick Mccormack on 09-09-2023 Immature granulocytes/100 WBC (Bld) CLINICAL BIOSTATISTICIAN [facility] Comment on above: Previous reported re sult: 6.000 %Edited by: DOM on 09/09/23:1442 AMENDED REPORT 09/09/23 1442 IM GRAN % previously reported as: 6.000 H % IG% - Immature Granulocytes (promyelocytes, myelocytes and metamyelocytes) > 1% indicates that a LEFT SHIFT is Present. Laboratory - Chemistry and C hemistry - challengeOrdered By: Rick Mccormack on 09-09-2023 CO2 [Moles/Vol] 26.0 mmol/L 21.0-32.0 [facility] Natriuretic peptide B (Bld) [Mass/Vol] 228.6 pg/mL 0-100 [facility] Urea nitrogen/Creatinine [Mass ratio] 14.3 mg/mg 10-20 [facility] Laboratory - Hematology and Cell countsOrdered By: Rick Mccormack on 09-09-2023 MCH (RBC) [Entitic mass] 30.8 pg 27.0-32.0 [facility] MCHC (RBC) [Mass/Vol] 31.0 g/dL 32-[address] [facility] Myelocytes/100 WBC (Bld) 1 % 0-0 [facility] Nucleated RBC/100 WBC (Bld) [Ratio] 0.7 % 0-5 [facility] Platelet mean volume (Bld) [Entitic vol] 10.8 fL 6.2-12.0 [facility] Platelets (Bld) [#/Vol] 178 10*3/uL 150-450 [facility] No Panel InformationOrdered By: Rick Mccormack on 09-09-2023 Estimated GFR (MDRD) Amer 76 mL/min >60 [facility] Comment on above: GFR Calc Estimated GFR (MDRD) Non-Af Amer 63 mL/min >60 [facility] Comment on above: Non- GFR Calc RBC Auto (Bld) [#/Vol]Ordere d By: Rick Mccormack on 09-09-2023 RBC (Bld) [#/Vol] 3.18 10*6/uL 4.6-6.2 [facility] RBC morphologyOrdered By: Letty Mccormack on 09-09-2023 RBC morphology finding Nom (Bld) NORM C+C NORMAL NORM C&C [facility] Review by pathologistOrdered By: Rick Mccormack on 09-09-2023 Pathologist review Marcos (Unsp spec) [Interp] Reviewed [facility] Comment on above: Previous reported re sult: Tatum sullivan Edited by: RGOCHACE on 09/10/23:1607Macrocytic anemia.Clinical correlation necessary.Randell Blanchard M.D. 09/10/23 AMENDED REPORT 09/10/23 1607 PATH REV previously reported as: Tatum sullivan Serum or plasma calcium aditya urement (mass/volume)Ordered By: Rick Mccormack on 09-09-2023 Calcium [Mass/Vol] 8.7 mg/dL 8.5-10.1 [facility] Serum or plasma creatinine m easurement (mass/volume)Ordered By: Rick Mccormack on 09-09-2023 Creatinine [Mass/Vol] 1.19 mg/dL 0.70-1.[address] [facility] Comment on above: The validity of the calculated GFR & GFRAA in patients over 70 years has not been determined. Clinical correlation is essential. Serum or plasma urea nitroge n measurement (mass/volume)Ordered By: Rick Mccormack on 09-09-2023 Urea nitrogen [Mass/Vol] 17 mg/dL 7-18 [facility] Thin prep Papanicolaou smear with manual screeningOrdered By: Rick Mccormack on 09-09-2023 Thin prep Papanicolaou smear with manual screening 6 5-15 [facility] Total cell countOrdered By: Rick Mccormack on 09-09-2023 Cells counted Molgen (Bld/Tiss) [#] 100 MANUAL DIFF [facility] Basophil percentageOrdered B y: Matthew Dodd on 02-02-2023 Chloride [Moles/Vol] 106 mmol/L 98-107 [facility] Glucose [Mass/Vol] 163 mg/dL 74-106 [facility] Comment on above: Fasting Glucose resu lt greater than or equal to 126 mg/dL suggests DIABETES MELLITUS per A.D.A. criteria. Potassium [Moles/Vol] 4.1 mmol/L 3.5-5.[address] [facility] Sodium [Moles/Vol] 138 mmol/L 136-145 [facility] WBC (Bld) [#/Vol] 11.3 10*3/uL 4.4-11.0 [facility] Blood erythrocytes count (nu mber/volume)Ordered By: Matthew Dodd on 02-02-2023 RBC (Bld) [#/Vol] 4.41 10*6/uL 4.6-6.2 [facility] Blood hemoglobin measurement (mass/volume)Ordered By: Matthew Dodd on 02-02-2023 Hemoglobin (Bld) [Mass/Vol] 14.7 g/dL 13.0-16.5 [facility] Blood platelet mean volumeOr dered By: Matthew Dodd on 02-02-2023 Platelet mean volume (Bld) [Entitic vol] 10.7 fL 6.2-12.0 [facility] Determination of erythrocyte mean corpuscular volume (MCV)Ordered By: Matthew Dodd on 02-02-2023 MCV (RBC) [Entitic vol] 98.0 fL 80-94 [facility] Hematocrit Auto (Bld) [Volum e fraction]Ordered By: Matthew Dodd on 02-02-2023 Hematocrit (Bld) [Volume fraction] 43.2 % 40-54 [facility] Laboratory - Chemistry and C hemistry - challengeOrdered By: Matthew Dodd on 02-02-2023 CO2 [Moles/Vol] 27.0 mmol/L 21.0-32.0 [facility] Natriuretic peptide B (Bld) [Mass/Vol] 115.4 pg/mL 0-100 [facility] Urea nitrogen/Creatinine [Mass ratio] 13.9 mg/mg 10-20 [facility] Laboratory - Hematology and Cell countsOrdered By: Matthew Dodd on 02-02-2023 Erythrocyte distribution width (RBC) [Entitic vol] 53.0 fL 35.1-43.9 [facility] Erythrocyte distribution width (RBC) [Ratio] 14.6 % 11.6-14.6 [facility] MCH (RBC) [Entitic mass] 33.3 pg 27.0-32.0 [facility] MCHC Auto (RBC) [Mass/Vol]Or dered By: Matthew Dodd on 02-02-2023 MCHC (RBC) [Mass/Vol] 34.0 g/dL 32-[address] [facility] No Panel InformationOrdered By: Matthew Dodd on 02-02-2023 Estimated GFR (MDRD) Amer 85 mL/min >60 [facility] Comment on above: GFR Calc Estimated GFR (MDRD) Non-Af Amer 70 mL/min >60 [facility] Comment on above: Non- GFR Calc Platelets bldOrdered By: Kobe Dodd on 02-02-2023 Platelets (Bld) [#/Vol] 224 10*3/uL 150-450 [facility] Serum or plasma calcium aditya urement (mass/volume)Ordered By: Matthew Dodd on 02-02-2023 Calcium [Mass/Vol] 8.9 mg/dL 8.5-10.1 [facility] Serum or plasma creatinine m easurement (mass/volume)Ordered By: Matthew Dodd on 02-02-2023 Creatinine [Mass/Vol] 1.08 mg/dL 0.70-1.[address] [facility] Comment on above: The validity of the calculated GFR & GFRAA in patients over 70 years has not been determined. Clinical correlation is essential. Serum or plasma urea nitroge n measurement (mass/volume)Ordered By: Matthew Dodd on 02-02-2023 Urea nitrogen [Mass/Vol] 15 mg/dL 7-18 [facility] Thin prep Papanicolaou smear with manual screeningOrdered By: Matthew Ju on 02-02-2023 Thin prep Papanicolaou smear with manual screening 5 5-15 [facility] Basophil percentageon 2021 Chloride [Moles/Vol] 107 mmol/L 98-107 [facility] Work Phone: Glucose [Mass/Vol] 198 mg/dL 74-106 [facility] Work Phone: Comment on above: Fasting Glucose resu lt greater than or equal to 126 mg/dL suggests DIABETES MELLITUS per A.D.A. criteria. Potassium [Moles/Vol] 4.2 mmol/L 3.5-5.[address] [facility] Work Phone: Sodium [Moles/Vol] 145 mmol/L 136-145 [facility] Work Phone: Laboratory - Chemistry and C hemistry - challengeon 04-27-2022 CO2 [Moles/Vol] 30.0 mmol/L 21.0-32.0 [facility] Work Phone: Urea nitrogen/Creatinine [Mass ratio] 13.1 mg/mg 10-20 [facility] Work Phone: No Panel Informationon 04-27 Estimated GFR (MDRD) Amer 74 mL/min >60 [facility] Work Phone: Comment on above: GFR Calc Estimated GFR (MDRD) Non-Af Amer 61 mL/min >60 [facility] Work Phone: Comment on above: Non- GFR Calc Serum or plasma calcium aditya urement (mass/volume)on 04-27-2022 Calcium [Mass/Vol] 9.2 mg/dL 8.5-10.1 [facility] Work Phone: Serum or plasma creatinine m easurement (mass/volume)on 04-27-2022 Creatinine [Mass/Vol] 1.22 mg/dL 0.70-1.[address] [facility] Work Phone: Comment on above: The validity of the calculated GFR & GFRAA in patients over 70 years has not been determined. Clinical correlation is essential. Serum or plasma urea nitroge n measurement (mass/volume)on 04-27-2022 Urea nitrogen [Mass/Vol] 16 mg/dL 7-18 [facility] Work Phone: Thin prep Papanicolaou smear with manual screeningon 04-27-2022 Thin prep Papanicolaou smear with manual screening 8 5-15 [facility] Work Phone: Basophil percentageon 2021 Chloride [Moles/Vol] 110 mmol/L 98-107 [facility] Work Phone: Glucose [Mass/Vol] 98 mg/dL 74-106 [facility] Work Phone: Potassium [Moles/Vol] 4.3 mmol/L 3.5-5.[address] [facility] Work Phone: Sodium [Moles/Vol] 142 mmol/L 136-145 [facility] Work Phone: Laboratory - Chemistry and C hemistry - challengeon 01-30-2022 CO2 [Moles/Vol] 28.0 mmol/L 21.0-32.0 [facility] Work Phone: Urea nitrogen/Creatinine [Mass ratio] 15.2 mg/mg 10-20 [facility] Work Phone: No Panel Informationon 01-30 Estimated Creatinine Clearance Calc 65.53 ml/min [facility] Work Phone: Estimated GFR (MDRD) Amer 88 mL/min >60 [facility] Work Phone: Comment on above: GFR Calc Estimated GFR (MDRD) Non-Af Amer 73 mL/min >60 [facility] Work Phone: Comment on above: Non- GFR Calc Serum or plasma calcium aditya urement (mass/volume)on 01-30-2022 Calcium [Mass/Vol] 9.0 mg/dL 8.5-10.1 [facility] Work Phone: Serum or plasma creatinine m easurement (mass/volume)on 01-30-2022 Creatinine [Mass/Vol] 1.05 mg/dL 0.70-1.[address] [facility] Work Phone: Comment on above: The validity of the calculated GFR & GFRAA in patients over 70 years has not been determined. Clinical correlation is essential. Serum or plasma urea nitroge n measurement (mass/volume)on 01-30-2022 Urea nitrogen [Mass/Vol] 16 mg/dL 7-18 [facility] Work Phone: Thin prep Papanicolaou smear with manual screeningon 01-30-2022 Thin prep Papanicolaou smear with manual screening 4 5-15 [facility] Work Phone: Absolute lymphocyte counton 10-31-2021 Lymphocytes Auto (Unsp spec) [#/Vol] 1.47 10*3/uL 0.83-4.51 [facility] Work Phone: Basophil percentageon 2021 Basophils/100 WBC (Bld) 1.1 % 0-1 [facility] Work Phone: Chloride [Moles/Vol] 109 mmol/L 98-107 [facility] Work Phone: Eosinophils/100 WBC (Bld) 6.6 % 0-5 [facility] Work Phone: Glucose [Mass/Vol] 119 mg/dL 74-106 [facility] Work Phone: Comment on above: Fasting Glucose resu lt from 100 to 125 mg/dL suggests IMPAIRED HOMEOSTASIS per A.D.A. criteria. Neutrophils (Bld) [#/Vol] 3.8 10*3/uL 2.0-7.7 [facility] Work Phone: Neutrophils/100 WBC (Bld) 57.7 % 47-70 [facility] Work Phone: Potassium [Moles/Vol] 4.1 mmol/L 3.5-5.1 [facility] Work Phone: Sodium [Moles/Vol] 141 mmol/L 136-145 [facility] Work Phone: WBC (Bld) [#/Vol] 6.7 10*3/uL 4.4-11.0 [facility] Work Phone: Blood erythrocytes count (nu mber/volume)on 10-31-2021 RBC (Bld) [#/Vol] 4.08 10*6/uL 4.6-6.2 [facility] Work Phone: Blood hemoglobin measurement (mass/volume)on 10-31-2021 Hemoglobin (Bld) [Mass/Vol] 13.0 g/dL 13.0-16.5 [facility] Work Phone: Blood lymphocytes/100 leukoc yteson 10-31-2021 Lymphocytes/100 WBC (Bld) 22.1 % 19-41 [facility] Work Phone: Blood monocytes/100 leukocyt eson 10-31-2021 Monocytes/100 WBC (Bld) 8.7 % 0-10 [facility] Work Phone: Blood platelet mean volumeon 10-31-2021 Platelet mean volume (Bld) [Entitic vol] 10.8 fL 6.2-12.0 [facility] Work Phone: Determination of erythrocyte mean corpuscular volume (MCV)on 10-31-2021 MCV (RBC) [Entitic vol] 97.5 fL 80-94 [facility] Work Phone: Hematocrit Auto (Bld) [Volum e fraction]on 10-31-2021 Hematocrit (Bld) [Volume fraction] 39.8 % 40-54 [facility] Work Phone: Laboratory - Chemistry and C hemistry - challengeon 10-31-2021 CO2 [Moles/Vol] 29.0 mmol/L 21.0-32.0 [facility] Work Phone: Free T4 [Mass/Vol] 1.01 ng/dL 0.76-1.46 [facility] Work Phone: Urea nitrogen/Creatinine [Mass ratio] 14.5 mg/mg 10-20 [facility] Work Phone: Laboratory - Hematology and Cell countson 10-31-2021 Erythrocyte distribution width (RBC) [Entitic vol] 52.8 fL 35.1-43.9 [facility] Work Phone: Erythrocyte distribution width (RBC) [Ratio] 14.7 % 11.6-14.6 [facility] Work Phone: Immature granulocytes/100 WBC (Bld) 3.800 % 0.0-0.9 [facility] Work Phone: Comment on above: IG% - Immature Granu locytes (promyelocytes, myelocytes and metamyelocytes) > 1% indicates that a LEFT SHIFT is Present. MCH (RBC) [Entitic mass] 31.9 pg 27.0-32.0 [facility] Work Phone: Nucleated RBC/100 WBC (Bld) [Ratio] 0 % 0-5 [facility] Work Phone: MCHC Auto (RBC) [Mass/Vol]on 10-31-2021 MCHC (RBC) [Mass/Vol] 32.7 g/dL 32-[address] [facility] Work Phone: No Panel Informationon 10-31 Estimated GFR (MDRD) Amer 78 mL/min >60 [facility] Work Phone: Comment on above: GFR Calc Estimated GFR (MDRD) Non-Af Amer 64 mL/min >60 [facility] Work Phone: Comment on above: Non- GFR Calc Thyroid Stimulating Hormone (TSH) 1.68 uIU/mL 0.358-3.74 [facility] Work Phone: Platelets bldon 10-31-2021 Platelets (Bld) [#/Vol] 161 10*3/uL 150-450 [facility] Work Phone: Serum or plasma calcium aditya urement (mass/volume)on 10-31-2021 Calcium [Mass/Vol] 8.7 mg/dL 8.5-10.1 [facility] Work Phone: Serum or plasma creatinine m easurement (mass/volume)on 10-31-2021 Creatinine [Mass/Vol] 1.17 mg/dL 0.70-1.[address] [facility] Work Phone: Comment on above: The validity of the calculated GFR & GFRAA in patients over 70 years has not been determined. Clinical correlation is essential. Serum or plasma urea nitroge n measurement (mass/volume)on 10-31-2021 Urea nitrogen [Mass/Vol] 17 mg/dL 7-18 [facility] Work Phone: Thin prep Papanicolaou smear with manual screeningon 10-31-2021 Thin prep Papanicolaou smear with manual screening 3 5-15 [facility] Work Phone: HEPATIC FUNCTION PANELon Albumin [Mass/Vol] 4.3 g/dL Normal 3.4 - 5.0 [facility] Comment on above: Performed By: #### H EPFP #### [address] [address] ALP [Catalytic activity/Vol] 52 U/L Normal 33 - 136 [facility] Comment on above: Performed By: #### H EPFP #### [address] [address] ALT [Catalytic activity/Vol] 22 U/L Normal 10 - 52 [facility] Comment on above: Result Comment: Shantell ents treated with Sulfasalazine may generate falsely decreased results for ALT. Performed By: #### H EPFP #### [address] [address] AST [Catalytic activity/Vol] 15 U/L Normal 9 - 39 [facility] Comment on above: Performed By: #### H EPFP #### [address] [address] Bilirubin [Mass/Vol] 0.7 mg/dL Normal 0.0 - 1.2 [facility] Comment on above: Performed By: #### H EPFP #### [address] [address] Bilirubin.direct [Mass/Vol] 0.1 mg/dL Normal 0.0 - 0.3 [facility] Comment on above: Performed By: #### H EPFP #### [address] [address] Protein [Mass/Vol] 6.4 g/dL Normal 6.4 - 8.2 [facility] Comment on above: Performed By: #### H EPFP #### [address] [address] CBC AND DIFFERENTIALon 02-28 Basophils (Bld) [#/Vol] 0.00 10*3/uL Normal 0.00 - 0.10 [facility] Comment on above: Performed By: #### C BCDF #### [address] [address] Basophils/100 WBC (Bld) 0.5 % Normal 0.0 - 2.0 [facility] Comment on above: Performed By: #### C BCDF #### [address] [address] Eosinophils (Bld) [#/Vol] 0.60 10*3/uL High 0.00 - 0.40 [facility] Comment on above: Performed By: #### C BCDF #### [address] [address] Eosinophils/100 WBC (Bld) 10.1 % Normal 0.0 - 6.0 [facility] Comment on above: Performed By: #### C BCDF #### [address] [address] Erythrocyte distribution width (RBC) [Ratio] 15.4 % High 11.5 - 14.5 [facility] Comment on above: Performed By: #### C BCDF #### [address] [address] Hematocrit (Bld) [Volume fraction] 48.7 % Normal 41.0 - 52.0 [facility] Comment on above: Performed By: #### C BCDF #### [address] [address] Hemoglobin (Bld) [Mass/Vol] 16.3 g/dL Normal 13.5 - 17.5 [facility] Comment on above: Performed By: #### C BCDF #### [address] [address] Lymphocytes (Bld) [#/Vol] 1.30 10*3/uL Normal 0.80 - 3.00 [facility] Comment on above: Performed By: #### C BCDF #### [address] [address] Lymphocytes/100 WBC (Bld) 21.9 % Normal 13.0 - 44.0 [facility] Comment on above: Performed By: #### C BCDF #### [address] [address] MCHC (RBC) [Mass/Vol] 33.5 g/dL Normal 32.0 - 36.0 [facility] Comment on above: Performed By: #### C BCDF #### [address] [address] MCV (RBC) [Entitic vol] 99 fL Normal 80 - 100 [facility] Comment on above: Performed By: #### C BCDF #### [address] [address] Monocytes (Bld) [#/Vol] 0.50 10*3/uL Normal 0.05 - 0.80 [facility] Comment on above: Performed By: #### C BCDF #### [address] [address] Monocytes/100 WBC (Bld) 8.0 % Normal 2.0 - 10.0 [facility] Comment on above: Performed By: #### C BCDF #### [address] [address] Neutrophils (Bld) [#/Vol] 3.60 10*3/uL Normal 1.60 - 5.50 [facility] Comment on above: Result Comment: Perc ent differential counts (%) should be interpreted in the context of the absolute cell counts (cells/L). Performed By: #### C BCDF #### [address] [address] Neutrophils/100 WBC (Bld) 59.5 % Normal 40.0 - 80.0 [facility] Comment on above: Performed By: #### C BCDF #### [address] [address] Nucleated RBC/100 WBC (Bld) [Ratio] 0.1 /100 WBC Normal [facility] Comment on above: Performed By: #### C BCDF #### [address] [address] Platelets (Bld) [#/Vol] 157 10*3/uL Normal 150 - 450 [facility] Comment on above: Performed By: #### C BCDF #### [address] [address] RBC (Bld) [#/Vol] 4.93 x10E12/L Normal 4.50 - 5.90 [facility] Comment on above: Performed By: #### C BCDF #### [address] [address] WBC (Bld) [#/Vol] 6.0 10*3/uL Normal 4.4 - 11.3 [facility] Comment on above: Performed By: #### C BCDF #### [address] [address] COMPREHENSIVE PANELon 2019 Albumin [Mass/Vol] 4.4 g/dL Normal 3.4 - 5.0 [facility] Comment on above: Performed By: #### C MP #### [address] [address] ALP [Catalytic activity/Vol] 51 U/L Normal 33 - 136 [facility] Comment on above: Performed By: #### C MP #### [address] [address] ALT [Catalytic activity/Vol] 21 U/L Normal 10 - 52 [facility] Comment on above: Result Comment: Shantell ents treated with Sulfasalazine may generate falsely decreased results for ALT. Performed By: #### C MP #### [place] [id number] Anion gap [Moles/Vol] 10 mmol/L Normal 10 - 20 [facility] Comment on above: Performed By: #### C MP #### [place] [address] AST [Catalytic activity/Vol] 18 U/L Normal 9 - 39 [facility] Comment on above: Performed By: #### C MP #### [place] [address] Bilirubin [Mass/Vol] 0.7 mg/dL Normal 0.0 - 1.2 [facility] Comment on above: Performed By: #### C MP #### [place] [address] Calcium [Mass/Vol] 9.3 mg/dL Normal 8.6 - 10.3 [facility] Comment on above: Performed By: #### C MP #### [place] [address] Chloride [Moles/Vol] 109 mmol/L High 98 - 107 [facility] Comment on above: Performed By: #### C MP #### [place] [address] Creatinine [Mass/Vol] 0.92 mg/dL Normal 0.50 - 1.30 [facility] Comment on above: Performed By: #### C MP #### [place] [address] GFR- AM. >60 Normal >60 [facility] Comment on above: Result Comment: CALC ULATIONS OF ESTIMATED GFR ARE PERFORMED USING THE MDRD STUDY EQUATION FOR THE IDMS-TRACEABLE CREATININE METHODS. CLIN CHEM 2007;53:766-72 Performed By: #### C MP #### [place] [address] GFR-NON AM. >60 Normal >60 [facility] Comment on above: Performed By: #### C MP #### [address] [address] Glucose [Mass/Vol] 118 mg/dL High 74 - 99 [facility] Comment on above: Performed By: #### C MP #### [address] [address] HCO3 (Bld) [Moles/Vol] 28 mmol/L Normal 21 - 32 [facility] Comment on above: Performed By: #### C MP #### [address] [address] Potassium [Moles/Vol] 4.1 mmol/L Normal 3.5 - 5.3 [facility] Comment on above: Performed By: #### C MP #### [address] [address] Protein [Mass/Vol] 6.5 g/dL Normal 6.4 - 8.2 [facility] Comment on above: Performed By: #### C MP #### [address] [address] Sodium [Moles/Vol] 143 mmol/L Normal 136 - 145 [facility] Comment on above: Performed By: #### C MP #### [address] [address] Urea nitrogen [Mass/Vol] 14 mg/dL Normal 6 - 23 [facility] Comment on above: Performed By: #### C MP #### [address] [address] HEMOGLOBIN A1Con 02-29-2020 HbA1c (Bld) [Mass fraction] 128 MG/DL Normal [facility] Comment on above: Performed By: #### H BA1E #### [address] [address] HbA1c (Bld) [Mass fraction] 6.1 % Normal [facility] Comment on above: Result Comment: Diag nosis of Diabetes-Adults Non-Diabetic: < or = 5.6% Increased risk for developing diabetes: 5.7-6.4% Diagnostic of diabetes: > or = 6.5% . Monitoring of Diabetes Age (y) Therapeutic Goal (%) Adults: >18 <7.0 Pediatrics: 13-18 <7.5 7-12 <8.0 0- 6 7.5-8.5 [employer]. Diabetes Care 33(S1), Jun 2009. Performed By: #### H BA1E #### [address] [address] LIPID PANEL (CORONARY RISK 2 )on 02-29-2020 Cholesterol [Mass/Vol] 169 mg/dL Normal 0 - 199 [facility] Comment on above: Result Comment: . AGE [...] dosing. Performed By: #### L IPID #### [address] [address] Cholesterol in HDL [Mass/Vol] 44.0 mg/dL Normal [facility] Comment on above: Result Comment: . AGE VERY LOW LOW NORMAL HIGH 0-19 Y < 35 < 40 40-45 ---- 20-24 Y ---- < 40 >45 ---- >24 Y ---- < 40 40-60 >60 . Performed By: #### L IPID #### [address] [address] Cholesterol in LDL [Mass/Vol] 103 mg/dL High 0 - 99 [facility] Comment on above: Result Comment: . NEAR BORD AGE DESIRABLE OPTIMAL HIGH HIGH VERY HIGH 0-19 Y 0 - 109 --- 110-129 >/= 130 ---- 20-24 Y 0 - 119 --- 120-159 >/= 160 ---- >24 Y 0 - 99 100-129 130-159 160-189 >/=190 . Performed By: #### L IPID #### [place] [address] Cholesterol in VLDL [Mass/Vol] 22 mg/dL Normal 0 - 40 [facility] Comment on above: Performed By: #### L IPID #### [place] [address] Cholesterol.total/Chol esterol in HDL [Mass ratio] 3.8 {ratio} Normal [facility] Comment on above: Result Comment: REF VALUES DESIRABLE < 3.4 HIGH RISK > 5.0 Performed By: #### L IPID #### [place] [address] Triglyceride [Mass/Vol] 110 mg/dL Normal 0 - 149 [facility] Comment on above: Result Comment: . AGE [...] dosing. Performed By: #### L IPID #### [place] [address] .Manual Abson 02-24-2019 Segs Abs Man 4.69 10x3/ Normal 1.4-6.5 [facility] Comment on above: Order Comment: Order Added by Discern Expert. Performed By: #### 3 [id number] #### CY Adhikari [address] [place], [place] [address] Basophil Abs Man 0.0 10x3/ Normal 0.0-0.2 [facility] Comment on above: Order Comment: Order Added by Discern Expert. Performed By: #### 3 [id number] #### CY Adhikari [facility] [place] [address] Eos Abs Man 0.3 10x3/ Normal 0.0-0.5 [facility] Comment on above: Order Comment: Order Added by Discern Expert. Performed By: #### 3 [id number] #### CY DiazHemo [address] [place] [address] Lymph Abs Man 1.3 10x3/ Normal 1.2-3.4 [facility] Comment on above: Order Comment: Order Added by Discern Expert. Performed By: #### 3 [id number] #### CY DiazHemo [address] [place] [address] Mower Abs Man 0.3 10x3/ Normal 0.0-0.7 [facility] Comment on above: Order Comment: Order Added by Discern Expert. Performed By: #### 3 [id number] #### CY DiazHemo [address] [place] [address] CBC w/ Auto Diffon 9 Erythrocyte distribution width (RBC) [Ratio] 14.7 % High 11.5-14.5 [facility] Comment on above: Performed By: #### 2 284252 #### CY DiazHemo [facility] [place] [address] Hematocrit (Bld) [Volume fraction] 48.5 % Normal 42.0-52.0 [facility] Comment on above: Performed By: #### 2 [id number] #### CYElder DiazHemo [address] [place] [address] Hemoglobin (Bld) [Mass/Vol] 16.4 g/dL Normal 13.5-18.0 [facility] Comment on above: Performed By: #### 2 752291 #### CY DiazHemo [address] [place] [address] MCH (RBC) [Entitic mass] 32.8 pg High 27.0-31.0 [facility] Comment on above: Performed By: #### 2 231938 #### CY DiazHemo [address] [place] [address] MCHC (RBC) [Mass/Vol] 33.8 g/dL Normal 33.0-37.0 [facility] Comment on above: Performed By: #### 2 803507 #### CY RemHemo [address] [place] [address] MCV (RBC) [Entitic vol] 97.2 fL Normal 78.0-100.0 [facility] Comment on above: Performed By: #### 2 749327 #### CY RemHemo [address] [place] [address] Platelet mean volume (Bld) [Entitic vol] 10.0 fL Normal 7.4-11.0 [facility] Comment on above: Performed By: #### 2 430008 #### CY RemHemo [address] [place] [address] Platelets (Bld) [#/Vol] 157 E3/mcL Normal 130-400 [facility] Comment on above: Performed By: #### 2 560498 #### CY RemHemo [facility] [place] [address] RBC (Bld) [#/Vol] 4.99 E6/mcL Normal 3.90-6.10 [facility] Comment on above: Performed By: #### 2 128877 #### CY RemHemo [facility] [place] [address] WBC (Bld) [#/Vol] 6.7 E3/mcL Normal 3.6-11.0 [facility] Comment on above: Performed By: #### 2 612251 #### CY RemHemo [address] [place] [address] CMPon 02-24-2019 Albumin [Mass/Vol] 4.2 g/dL Normal 3.4-5.0 [facility] Comment on above: Performed By: #### 2 [id number] #### CY Datalink [facility] [place] [address] Albumin/Globulin [Mass ratio] 2.1 {ratio} High 1.1-1.9 [facility] Comment on above: Performed By: #### 2 590774 #### CY Datalink [facility] [place] [address] Alk Phos 48 Int._Unit/L Normal 33-136 [facility] Comment on above: Performed By: #### 2 248660 #### CY Datalink [address] [place] [address] ALT [Catalytic activity/Vol] 22 Int._Unit/L Normal 10-52 [facility] Comment on above: Performed By: #### 2 598846 #### CY Datalink [address] [place] [address] Anion gap [Moles/Vol] 10 mmol/L Normal 10-20 [facility] Comment on above: Performed By: #### 2 717685 #### CY Datalink [address] [place] [address] AST [Catalytic activity/Vol] 18 Int._Unit/L Normal 9-39 [facility] Comment on above: Performed By: #### 2 744790 #### CY Datalink [address] [place] [address] Bili Total 0.82 mg/dL Normal 0.00-1.20 [facility] Comment on above: Performed By: #### 2 327993 #### CY [employer]atalink [address] [place] [address] Calcium [Mass/Vol] 9.1 mg/dL Normal 8.6-10.3 [facility] Comment on above: Performed By: #### 2 352895 #### CY [employer]ink [address] [place] [address] Chloride [Moles/Vol] 110 mmol/L High 98-107 [facility] Comment on above: Performed By: #### 2 086340 #### CY [employer]atalink [address] [place] [address] CO2 [Moles/Vol] 25.0 mmol/L Normal 21.0-32.0 [facility] Comment on above: Performed By: #### 2 560676 #### CY [employer]atalink [address] [place] [address] Creatinine [Mass/Vol] 0.8 mg/dL Normal 0.5-1.3 [facility] Comment on above: Performed By: #### 2 524655 #### CY [employer] [address] [place] [address] Globulin (S) [Mass/Vol] 2.0 g/dL Normal 2.0-4.0 [facility] Comment on above: Performed By: #### 2 145619 #### CY [employer]ink [address] [place] [address] Glucose [Mass/Vol] 122 mg/dL High 70-99 [facility] Comment on above: Performed By: #### 2 669527 #### CY [employer]ink [address] [place] [address] Potassium [Moles/Vol] 3.8 mmol/L Normal 3.5-5.3 [facility] Comment on above: Performed By: #### 2 242365 #### CY [employer]ink [address] [place] [address] Protein [Mass/Vol] 6.2 g/dL Low 6.4-8.2 [facility] Comment on above: Performed By: #### 2 102922 #### CY [employer]ink [address] [place] [address] Sodium [Moles/Vol] 141 mmol/L Normal 136-145 [facility] Comment on above: Performed By: #### 2 869070 #### CY [employer]atalink [address] [place] [address] Urea nitrogen [Mass/Vol] 14 mg/dL Normal 6-23 [facility] Comment on above: Performed By: #### 2 551201 #### CY [employer]ink [address] [place] [address] Urea nitrogen/Creatinine [Mass ratio] 17.5 ratio Normal 5.4-30.0 [facility] Comment on above: Performed By: #### 2 525326 #### CY [employer]ink [address] [place] [address] Lipid Profileon 02-24-2019 Cholesterol [Mass/Vol] 159 mg/dL Normal 0-199 [facility] Comment on above: Result Comment: TOTA L CHOLEESTEROL: <200 NORMAL 200 - 239 BORDERLINE HIGH >240 HIGH Performed By: #### 3 [id number] #### CY Datalink [address] [place] [address] Cholesterol in HDL [Mass/Vol] 52 mg/dL Normal 40-60 [facility] Comment on above: Performed By: #### 3 6834255 #### CY Datalink [address] [place] [address] Cholesterol in LDL [Mass/Vol] 76 mg/dL Normal 0-130 [facility] Comment on above: Result Comment: <100 OPTIMAL 100-129 NEAR / ABOVE OPTIMAL 130-159 BORDERLINE HIGH 160-189 HIGH >190 VERY HIGH CALC LDL NOT VALID WHEN TRIGLYCERIDE IS >400 MG/DL Performed By: #### 3 1198124 #### CY Datalink [facility] [place] [address] Cholesterol in VLDL [Mass/Vol] 31 mg/dL Normal 0-40 [facility] Comment on above: Performed By: #### 3 4647818 #### CY Datalink [facility] [place] [address] Triglyceride [Mass/Vol] 156 mg/dL High 0-149 [facility] Comment on above: Result Comment: AGE DESIRABLE BORDERLINE HIGH 91 D - 9 Y 0 - 74 75 - 99 > 100 10 - 19 Y 0 - 89 90 - 129 > 130 20 -24 Y 0 - 114 115 - 149 > 150 > 25 0 - 149 150 - 199 200 - 499 Performed By: #### 3 [id number] #### CY [employer]atalink [address] [place] [address] Manual Diffon 02-24-2019 Basophil Man 0 % Normal 0-1 [facility] Comment on above: Order Comment: Order Added by Discern Expert. Performed By: #### 2 312954 #### CY RemHemo [address] [place] [address] Eosinophils/100 WBC (Bld) 5 % Normal 0-5 [facility] Comment on above: Order Comment: Order Added by Discern Expert. Performed By: #### 2 523395 #### CY RemHemo [address] [place] [address] Lymphocytes/100 WBC (Bld) 20 % Normal 14-48 [facility] Comment on above: Order Comment: Order Added by Discern Expert. Performed By: #### 2 103166 #### CY RemHemo [address] [place] [address] Monocyte Man 5 % Normal 1-11 [facility] Comment on above: Order Comment: Order Added by Discern Expert. Performed By: #### 2 713799 #### CY RemHemo [address] [place] 2150405 RBC morphology finding Nom (Bld) NORMAL Normal [facility] Comment on above: Order Comment: Order Added by Discern Expert. Performed By: #### 2 436933 #### CY RemHemo [address] [place] 2150405 Segs Man 70 % Normal 37-75 [facility] Comment on above: Order Comment: Order Added by Discern Expert. Performed By: #### 2 835402 #### CY RemHemo [address] [place] 2150405 eGFRon 02-24-2019 GFR/1.73 sq M predicted among non-blacks MDRD (S/P/Bld) [Vol rate/Area] mL/min/{1.73_m2} Normal [facility] Comment on above: Order Comment: Order added by Discern Expert. Performed By: #### 1 [id number] #### CY [employer] [address] [place] [address] zzplt morphon 02-24-2019 Platelet morphology finding Nom (Bld) NORMAL Normal [facility] Comment on above: Performed By: #### 9 [id number] #### CY RemHemo [facility] [place] [address] Platelets (Bld) [#/Vol] NORMAL Normal [facility] Comment on above: Performed By: #### 9 [id number] #### CY RemHemo [facility] [place] 2150405 Blood Glucose , Office ([phone])Ordered By: Erin Mccracken on 05-20-2015 Glucose Glucometer (BldC) [Moles/Vol] 175 1 Normal [facility] Work Phone: HgA1C , Office ([phone])Ordere d By: Erin Mccracken on 05-20-2015 HbA1c (Bld) [Mass fraction] 6.0 % Normal 4.6 - 7.1 [facility] Work Phone: OCCULT BLOOD FECES SCREEN ([phone])on 01-18-2015 Hemoglobin.gastrointes tinal Ql (Stl) negitive Normal [facility] Work Phone: HgA1C , Office ([phone])on HbA1c (Bld) [Mass fraction] 6.1 % Normal 4.6 - 7.1 [facility] Work Phone: CBC WITH MANUAL DIFF ([phone]) Ordered By: Video Tape Editor on 04-07-2013 Basophils (Bld) [#/Vol] 0.0 {x10E3/uL} Normal 0.0-0.2 [facility] Work Phone: Comment on above: PATIENT WAS FASTINGP ERFORMED BY: [facility] Nlhefb0199 [facility] [id number] Information: [id number] Basophils/100 WBC (Bld) 0 % Normal 0-3 [facility] Work Phone: Comment on above: PATIENT WAS FASTINGP ERFORMED BY: [facility] Lpimeo7767 [facility] [id number] Information: [id number] Eosinophils (Bld) [#/Vol] 0.4 {x10E3/uL} Normal 0.0-0.4 [facility] Work Phone: Comment on above: PATIENT WAS FASTINGP ERFORMED BY: [facility] Dxoppc0006 [facility] [id number] Information: [id number] Eosinophils/100 WBC (Bld) 6 % Abnormal 0-5 [facility] Work Phone: Comment on above: PATIENT WAS FASTINGP ERFORMED BY: [facility] Gurxwz2060 [facility] [id number] Information: [id number] Erythrocyte distribution width (RBC) [Ratio] 13.8 % Normal 12.3-15.4 [facility] Work Phone: Comment on above: PATIENT WAS FASTINGP ERFORMED BY: [facility] Giqmra4476 [facility] [id number] Information: [id number] Hematocrit (Bld) [Volume fraction] 48.4 % Normal 37.5-51.0 [facility] Work Phone: Comment on above: PATIENT WAS FASTINGP ERFORMED BY: [place] [id number] [facility] [id number] Information: [id number] Hemoglobin (Bld) [Mass/Vol] 16.6 g/dL Normal 12.6-17.7 [facility] Work Phone: Comment on above: PATIENT WAS FASTINGP ERFORMED BY: [address] [id number] Information: [id number] Immature granulocytes (Bld) [#/Vol] 0.0 {x10E3/uL} Normal 0.0-0.1 [facility] Work Phone: Comment on above: PATIENT WAS FASTINGP ERFORMED BY: [address] [id number] Information: [id number] Immature granulocytes/100 WBC (Bld) 0 % Normal 0-2 [facility] Work Phone: Comment on above: PATIENT WAS FASTINGP ERFORMED BY: [address] [id number] Information: [id number] Lymphocytes (Bld) [#/Vol] 1.9 {x10E3/uL} Normal 0.7-3.1 [facility] Work Phone: Comment on above: PATIENT WAS FASTINGP ERFORMED BY: [address] [id number] Information: [id number] Lymphocytes/100 WBC (Bld) 28 % Normal 14-46 [facility] Work Phone: Comment on above: PATIENT WAS FASTINGP ERFORMED BY: [address] [id number] Information: [id number] MCH (RBC) [Entitic mass] 32.0 pg Normal 26.6-33.0 [facility] Work Phone: Comment on above: PATIENT WAS FASTINGP ERFORMED BY: [facility] Pxsxhd4752 [facility] [id number] Information: [id number],[id number] MCHC (RBC) [Mass/Vol] 34.3 g/dL Normal 31.5-35.7 [facility] Work Phone: Comment on above: PATIENT WAS FASTINGP ERFORMED BY: [address] [id number] Information: [id number] MCV (RBC) [Entitic vol] 93 fL Normal 79-97 [facility] Work Phone: Comment on above: PATIENT WAS FASTINGP ERFORMED BY: [address] [id number] Information: [id number] Monocytes (Bld) [#/Vol] 0.5 {x10E3/uL} Normal 0.1-0.9 [facility] Work Phone: Comment on above: PATIENT WAS FASTINGP ERFORMED BY: [address] [id number] Information: [id number] Monocytes/100 WBC (Bld) 7 % Normal 4-12 [facility] Work Phone: Comment on above: PATIENT WAS FASTINGP ERFORMED BY: [place] [id number] [facility] [id number] Information: [id number] Neutrophils (Bld) [#/Vol] 3.9 {x10E3/uL} Normal 1.4-7.0 [facility] Work Phone: Comment on above: PATIENT WAS FASTINGP ERFORMED BY: [place] [id number] [facility] [id number] Information: [id number] Neutrophils/100 WBC (Bld) 59 % Normal 40-74 [facility] Work Phone: Comment on above: PATIENT WAS FASTINGP ERFORMED BY: LARON LabCodarlene ParraUfjtmo6836 [facility] [place] [id number] Information: [id number] Platelets (Bld) [#/Vol] 228 {x10E3/uL} Normal 155-379 [facility] Work Phone: Comment on above: PATIENT WAS FASTINGP ERFORMED BY: CB [facility] Haknsx1928 [facility] [id number] Information: [id number] RBC (Bld) [#/Vol] 5.19 {x10E6/uL} Normal 4.14-5.80 [facility] Work Phone: Comment on above: PATIENT WAS FASTINGP ERFORMED BY: LARON [facility] Ltgdbh4780 [facility] [id number] Information: [id number] WBC (Bld) [#/Vol] 6.7 {x10E3/uL} Normal 3.4-10.8 [facility] Work Phone: Comment on above: PATIENT WAS FASTINGP ERFORMED BY: LARON KaylieCodarlene ParraDgttbf2000 [facility] [id number] Information: [id number] LIPID PANEL ([id number])Ordered B y: Video Tape Editor on 04-07-2013 Cholesterol [Mass/Vol] 199 mg/dL Normal 100-199 [facility] Work Phone: Comment on above: PATIENT WAS FASTINGP ERFORMED BY: LARON [facility] Qpieuo7450 Leon [facility] [place] [id number] Cholesterol in HDL [Mass/Vol] 57 mg/dL Normal [facility] Work Phone: Comment on above: According to ATP-III Guidelines, HDL-C >59 mg/dL is considered anegative risk factor for CHD. PATIENT WAS FASTINGP ERFORMED BY: LARON [facility] Scsecl1796 [address] [facility] [place] [id number] Cholesterol in LDL [Mass/Vol] 111 mg/dL Abnormal 0-99 [facility] Work Phone: Comment on above: PATIENT WAS FASTINGP ERFORMED BY: LARON LabCodarlene Wfanar0491 Leon RoadDublin [place] [id number] Cholesterol in LDL/Cholesterol in HDL [Mass ratio] 1.9 {ratio_units} Normal 0.0-3.6 [facility] Work Phone: Comment on above: PATIENT WAS FASTINGP ERFORMED BY: LARON LabCodarlene YuAbkhvk7865 Leon RoadDublin [place] [id number] Cholesterol in VLDL [Mass/Vol] 31 mg/dL Normal 5-40 [facility] Work Phone: Comment on above: PATIENT WAS FASTINGP ERFORMED BY: LARON LabEstefanidarlene Lqrsth3570 Leon RoadDublin [place] [id number] Triglyceride [Mass/Vol] 154 mg/dL Abnormal 0-149 [facility] Work Phone: Comment on above: PATIENT WAS FASTINGP ERFORMED BY: LARON LabEstefani Xmegrf8379 Leon RoadDublin [place] [id number] METABOLIC PANEL, COMPREHENSI VE ([id number])Ordered By: Video Tape Editor on 04-07-2013 Albumin [Mass/Vol] 4.7 g/dL Normal 3.6-4.8 [facility] Work Phone: Comment on above: PATIENT WAS FASTINGP ERFORMED BY: LARON [facility] Lkhtyr2264 [address] RoadDublin [place] [id number] Albumin/Globulin [Mass ratio] 2.0 {ratio} Normal 1.1-2.5 [facility] Work Phone: Comment on above: PATIENT WAS FASTINGP ERFORMED BY: LARON [facility] Ypwilk3820 [address] RoadDublin [place] [id number] ALP [Catalytic activity/Vol] 59 [iU]/L Normal 44-103 [facility] Work Phone: Comment on above: PATIENT WAS FASTINGP ERFORMED BY: LARON [facility] Gsyyzs9073 [address] RoadDublin [place] [id number] ALT [Catalytic activity/Vol] 30 [iU]/L Normal 0-44 [facility] Work Phone: Comment on above: PATIENT WAS FASTINGP ERFORMED BY: LARON [facility] Yfnecp7837 [address] RoadDublin [place] [id number] AST [Catalytic activity/Vol] 25 [iU]/L Normal 0-40 [facility] Work Phone: Comment on above: PATIENT WAS FASTINGP ERFORMED BY: CB [facility] Ayjkhy4141 [address] RoadDublin [place] [id number] Bilirubin [Mass/Vol] 0.8 mg/dL Normal 0.0-1.2 [facility] Work Phone: Comment on above: PATIENT WAS FASTINGP ERFORMED BY: LARON [facility] Fihnio6921 [address] RoadDublin [place] [id number] Calcium [Mass/Vol] 9.9 mg/dL Normal 8.6-10.2 [facility] Work Phone: Comment on above: PATIENT WAS FASTINGP ERFORMED BY: [facility] Ywpybe8984 [address] RoadD[address] [place] [id number] Chloride [Moles/Vol] 103 mmol/L Normal 97-108 [facility] Work Phone: Comment on above: PATIENT WAS FASTINGP ERFORMED BY: [facility] Xgqspd4786 [address] RoadD[address] [place] [id number] CO2 [Moles/Vol] 24 mmol/L Normal 19-28 [facility] Work Phone: Comment on above: PATIENT WAS FASTINGP ERFORMED BY: CB [facility] Oixqwp7573 [address] Road[address] [place] [id number] Creatinine [Mass/Vol] 1.07 mg/dL Normal 0.76-1.27 [facility] Work Phone: Comment on above: PATIENT WAS FASTINGP ERFORMED BY: CB [facility] Xbixio6676 [address] RoadD[address] [place] [id number] GFR/1.73 sq M predicted among blacks CKD-EPI (S/P/Bld) [Vol rate/Area] 81 mL/min/1.73 Normal [facility] Internal Medicine Work Phone: Comment on above: PATIENT WAS FASTINGP ERFORMED BY: LARON [facility] Tunnmo6193 Leon RoadDublin [place] [id number] GFR/1.73 sq M predicted among non-blacks CKD-EPI (S/P/Bld) [Vol rate/Area] 70 mL/min/1.73 Normal [facility] Internal Medicine Work Phone: Comment on above: PATIENT WAS FASTINGP ERFORMED BY: LARON [facility] Itwpou9513 Leon RoadDublin [place] [id number] Globulin (S) [Mass/Vol] 2.3 g/dL Normal 1.5-4.5 [facility] Internal Medicine Work Phone: Comment on above: PATIENT WAS FASTINGP ERFORMED BY: LARON [facility] Jxuizj3705 Leon RoadDublin [place] [id number] Glucose [Mass/Vol] 88 mg/dL Normal 65-99 [facility] Internal Medicine Work Phone: Comment on above: PATIENT WAS FASTINGP ERFORMED BY: [facility] Niytvx9531 [address] RoadDublin [place] [id number] Potassium [Moles/Vol] 4.3 mmol/L Normal 3.5-5.2 [facility] Internal Medicine Work Phone: Comment on above: PATIENT WAS FASTINGP ERFORMED BY: [facility] Buqvtx7012 Leon RoadDublin [place] [id number] Protein [Mass/Vol] 7.0 g/dL Normal 6.0-8.5 [facility] Internal Medicine Work Phone: Comment on above: PATIENT WAS FASTINGP ERFORMED BY: [facility] Eyigfe3480 Leon RoadDublin [place] [id number] Sodium [Moles/Vol] 141 mmol/L Normal 134-144 [facility] Internal Medicine Work Phone: Comment on above: PATIENT WAS FASTINGP ERFORMED BY: [facility] Hnwyco7358 Leon RoadDublin [place] [id number] Urea nitrogen [Mass/Vol] 14 mg/dL Normal 8-27 [facility] Work Phone: Comment on above: PATIENT WAS FASTINGP ERFORMED BY: LARON [employer] Kqbtit2872 [facility]Critical [facility] hospital [id number] Urea nitrogen/Creatinine [Mass ratio] 13 mg/mg Normal 10-22 [facility] Work Phone: Comment on above: PATIENT WAS FASTINGP ERFORMED BY: [employer]space Wxxfiv9651 [facility]lyCritical access hospital [id number] MICROALBUMINOrdered By: Syst em Telecommunication Operator on 04-07-2013 Albumin DL <= 20 mg/L (U) [Mass/Vol] 20.4 ug/mL Abnormal 0.0-17.0 [facility] Work Phone: Comment on above: PATIENT WAS FASTINGP ERFORMED BY: [employer] Xrltfg7097 [facility]Critical access hospital [id number] Albumin/Creatinine (U) [Mass ratio] 16.1 {mg/g_creat} Normal 0.0-30.0 [facility] Work Phone: Comment on above: PATIENT WAS FASTINGP ERFORMED BY: Celect Ndtult3134 [facility]lyCritical access hospital [id number] Creatinine (U) [Mass/Vol] 126.7 mg/dL Normal 22.0-328.0 [facility] Work Phone: Comment on above: PATIENT WAS FASTINGP ERFORMED BY: Celect Hbjodj3841 Leon [facility]Northern [facility] [id number] PSA (PROSTATE SPECIFIC ANTIG EN) (V76.44)Ordered By: Video Tape Editor on 04-07-2013 Prostate specific Ag [Mass/Vol] 4.9 ng/mL Abnormal 0.0-4.0 [facility] Work Phone: Comment on above: Jolanta ECLIA methodol ogy. .According to the [place] [employer], Serum PSA shoulddecrease and remain [...] py; PATIENT WAS FASTINGPERFORMED BY: CB [facility] Psdfmo0055 Leon RoadDublin [place] [id number] TSH (38691)Ordered By: [employer] m Telecommunication Operator on 04-07-2013 TSH Qn 1.790 {uIU/mL} Normal 0.450-4.500 Comprehen sive Internal Medicine Work Phone: Comment on above: PATIENT WAS FASTINGP ERFORMED BY: CB [facility] Cgjgus0626 Leon RoadDublin [place] [id number] URINALYSIS, W/ MICRO (26048) Ordered By: Video Tape Editor on 04-07-2013 Appearance (U) Clear Normal Comprehens kurtis Internal Medicine Work Phone: Comment on above: PATIENT WAS FASTINGP ERFORMED BY: CB [facility] Ptjcro4664 Leon RoadDublin [place] [id number] Bilirubin Ql (U) Negative Normal Comprehe nsive Internal Medicine Work Phone: Comment on above: PATIENT WAS FASTINGP ERFORMED BY: CB [facility] Zkmdxa4509 Leon RoadDublin [place] [id number] Color (U) Yellow Normal [facility] Work Phone: Comment on above: PATIENT WAS FASTINGP ERFORMED BY: CB [facility] Ammqtr9116 Leon RoadDublin [place] [id number] Glucose Ql (U) Negative Normal Comprehens kurtis Internal Medicine Work Phone: Comment on above: PATIENT WAS FASTINGP ERFORMED BY: CB [facility] Eaxwkx5011 Leon RoadDublin [place] [id number] Hemoglobin Ql (U) Negative Normal Compreh ensive Internal Medicine Work Phone: Comment on above: PATIENT WAS FASTINGP ERFORMED BY: CB [facility] Hpjdap5322 Leon RoadDublin [place] [id number] Ketones Ql (U) Negative Normal Comprehens kurtis Internal Medicine Work Phone: Comment on above: PATIENT WAS FASTINGP ERFORMED BY: LARON [facility] Jsrthi0343 Leon RoadDublin [place] [id number] Leukocyte esterase Test strip Ql (U) Negative Normal [facility] Work Phone: Comment on above: PATIENT WAS FASTINGP ERFORMED BY: LARON LabWestley YuQguzkc0828 Leon RoadDublin [place] [id number] Microscopic observation LM Nom (Urine sed) MICRON Normal [facility] Work Phone: Comment on above: Microscopic follows if indicated. PATIENT WAS FASTINGP ERFORMED BY: LARON LabCodarlene YuQelitd3127 Leon RoadDublin [place] [id number] Microscopic observation LM Nom (Urine sed) See below: Normal [facility] Work Phone: Comment on above: PATIENT WAS FASTINGP ERFORMED BY: LARON Yulin6370 [address] RoadDublin [place] [id number] Nitrite Ql (U) Negative Normal Comprehens kurtis Internal Medicine Work Phone: Comment on above: PATIENT WAS FASTINGP ERFORMED BY: LARON Yulin6370 [address] RoadDublin [place] [id number] pH (U) 6.5 [pH] Normal 5.0-7.5 [facility] Work Phone: Comment on above: PATIENT WAS FASTINGP ERFORMED BY: LARON Yulin6370 [address] RoadDublin [place] [id number] Protein Ql (U) Negative Normal Comprehens kurtis Internal Medicine Work Phone: Comment on above: PATIENT WAS FASTINGP ERFORMED BY: LARON [facility] Lyjqtk7986 Leon RoadDublin [place] [id number] Specific gravity (U) [Rel density] 1.019 1 Normal 1.005-1.030 [facility] Work Phone: Comment on above: PATIENT WAS FASTINGP ERFORMED BY: LARON [facility] Fwphha0001 Leon RoadDublin [place] [id number] Urobilinogen Test strip (U) [Mass/Vol] 1.0 mg/dL Normal 0.0-1.9 Comprehensi Internal Medicine Work Phone: Comment on above: PATIENT WAS FASTINGP ERFORMED BY: LARON [facility]6370 [facility] [id number] CBC WITH MANUAL DIFF (01328) Ordered By: Video Tape Editor on 02-05-2012 Basophils (Bld) [#/Vol] 0.0 {x10E3/uL} Normal 0.0-0.2 [facility] Work Phone: Comment on above: PATIENT NOT FASTINGP ERFORMED BY: [address] [id number] Information: [id number] Basophils/100 WBC (Bld) 0 % Normal 0-3 [facility] Work Phone: Comment on above: PATIENT NOT FASTINGP ERFORMED BY: [address] [id number] Information: [id number] Eosinophils (Bld) [#/Vol] 0.7 {x10E3/uL} Abnormal 0.0-0.4 [facility] Work Phone: Comment on above: PATIENT NOT FASTINGP ERFORMED BY: [place]lieAdam [place] 8227870 [facility] [id number] Information: [id number] Eosinophils/100 WBC (Bld) 9 % Abnormal 0-7 [facility] Work Phone: Comment on above: PATIENT NOT FASTINGP ERFORMED BY: [place] 8767370 [facility] [id number] Information: [id number] Erythrocyte distribution width (RBC) [Ratio] 14.2 % Normal 12.3-15.4 [facility] Work Phone: Comment on above: PATIENT NOT FASTINGP ERFORMED BY: [place] [id number] [facility] [id number] Information: [id number],G15977 Hematocrit (Bld) [Volume fraction] 51.3 % Abnormal 37.5-51.0 [facility] Work Phone: Comment on above: PATIENT NOT FASTINGP ERFORMED BY: LARON Yulin6370 [facility] [id number] Information: [id number],Q46744 Hemoglobin (Bld) [Mass/Vol] 17.7 g/dL Normal 12.6-17.7 [facility] Work Phone: Comment on above: PATIENT NOT FASTINGP ERFORMED BY: LARON Garcia Msildf[address] [id number] Information: [id number],[id number] Immature granulocytes (Bld) [#/Vol] 0.0 {x10E3/uL} Normal 0.0-0.1 [facility] Work Phone: Comment on above: PATIENT NOT FASTINGP ERFORMED BY: [address] [id number] Information: 907525,[id number] Immature granulocytes/100 WBC (Bld) 0 % Normal 0-2 [facility] Work Phone: Comment on above: PATIENT NOT FASTINGP ERFORMED BY: LARON Garcia Ehqrwx9371 [facility] [id number] Information: 208207,[id number] Lymphocytes (Bld) [#/Vol] 1.8 {x10E3/uL} Normal 0.7-4.5 [facility] Work Phone: Comment on above: PATIENT NOT FASTINGP ERFORMED BY: [place] [id number] [facility] [id number] Information: 707108,[id number] Lymphocytes/100 WBC (Bld) 25 % Normal 14-46 [facility] Work Phone: Comment on above: PATIENT NOT FASTINGP ERFORMED BY: LARON [place] [id number] [facility] [id number] Information: [id number],[id number] MCH (RBC) [Entitic mass] 32.4 pg Normal 26.6-33.0 [facility] Work Phone: Comment on above: PATIENT NOT FASTINGP ERFORMED BY: LARON Parra6370 [facility] [id number] Information: [id number] MCHC (RBC) [Mass/Vol] 34.5 g/dL Normal 31.5-35.7 [facility] prehensive Internal Medicine Work Phone: Comment on above: PATIENT NOT FASTINGP ERFORMED BY: LARON Parra6370 [facility] [id number] Information: 625398,[id number] MCV (RBC) [Entitic vol] 94 fL Normal 79-97 [facility] Work Phone: Comment on above: PATIENT NOT FASTINGP ERFORMED BY: LARON uYlin6370 [facility] [id number] Information: 540396,[id number] Monocytes (Bld) [#/Vol] 0.7 {x10E3/uL} Normal 0.1-1.0 [facility] Work Phone: Comment on above: PATIENT NOT FASTINGP ERFORMED BY: LARON Parra6370 [facility] [id number] Information: 258817,[id number] Monocytes/100 WBC (Bld) 9 % Normal 4-13 [facility] Work Phone: Comment on above: PATIENT NOT FASTINGP ERFORMED BY: LARON Garcia Fboiys8223 [facility] [id number] Information: [id number],[id number] Neutrophils (Bld) [#/Vol] 4.0 {x10E3/uL} Normal 1.8-7.8 [facility] Work Phone: Comment on above: PATIENT NOT FASTINGP ERFORMED BY: LARON Yulin6370 [facility] [id number] Information: [id number] Neutrophils/100 WBC (Bld) 57 % Normal 40-74 [facility] Work Phone: Comment on above: PATIENT NOT FASTINGP ERFORMED BY: LARON [facility] Dlzsse1030 Leon RoadDublin [place] [id number] Information: [id number],[id number] Platelets (Bld) [#/Vol] 217 {x10E3/uL} Normal 140-415 [facility] Internal Medicine Work Phone: Comment on above: PATIENT NOT FASTINGP ERFORMED BY: CB [facility] Fgfjed5966 [address] RoadDublin [place] [id number] Information: [id number],[id number] RBC (Bld) [#/Vol] 5.47 {x10E6/uL} Normal 4.14-5.80 [facility] Internal Medicine Work Phone: Comment on above: PATIENT NOT FASTINGP ERFORMED BY: LARON LottCodarlene YuJztmgv9069 Leon RoadDublin [place] [id number] Information: 528694,Y69463 WBC (Bld) [#/Vol] 7.2 {x10E3/uL} Normal 4.0-10.5 [facility] Internal Medicine Work Phone: Comment on above: PATIENT NOT FASTINGP ERFORMED BY: LARON LabCodarlene ParraLfxync1170 Leon Roadblin [place] [id number] Information: [id number],[id number] LIPID PANEL (65333)Ordered B y: Video Tape Editor on 02-05-2012 Cholesterol [Mass/Vol] 181 mg/dL Normal 100-199 [facility] Internal Medicine Work Phone: Comment on above: PATIENT NOT FASTINGP ERFORMED BY: CB [facility] Dyfihr0500 [address] RoadDublin [place] [id number] Cholesterol in HDL [Mass/Vol] 47 mg/dL Normal [facility] Internal Medicine Work Phone: Comment on above: According to ATP-III Guidelines, HDL-C >59 mg/dL is considered anegative risk factor for CHD. PATIENT NOT FASTINGP ERFORMED BY: CB [facility] Zrssjr3417 Leon RoadDublin [place] [id number] Cholesterol in LDL [Mass/Vol] 98 mg/dL Normal 0-99 [facility] Work Phone: Comment on above: PATIENT NOT FASTINGP ERFORMED BY: LARON [facility] Erjwjx7545 Leon RoadDublin [place] [id number] Cholesterol in LDL/Cholesterol in HDL [Mass ratio] 2.1 {ratio_units} Normal 0.0-3.6 [facility] Work Phone: Comment on above: PATIENT NOT FASTINGP ERFORMED BY: CB [facility] Bailrs7073 Leon RoadDublin [place] [id number] Cholesterol in VLDL [Mass/Vol] 36 mg/dL Normal 5-40 [facility] Work Phone: Comment on above: PATIENT NOT FASTINGP ERFORMED BY: LARON [facility] Ziphfe0328 Leon RoadDublin [place] [id number] Triglyceride [Mass/Vol] 179 mg/dL Abnormal 0-149 [facility] Work Phone: Comment on above: PATIENT NOT FASTINGP ERFORMED BY: LARON [facility] Ytjwof8983 Leon Roadblin [place] [id number] METABOLIC PANEL, COMPREHENSI VE (65393)Ordered By: Video Tape Editor on 02-05-2012 Albumin [Mass/Vol] 4.4 g/dL Normal 3.6-4.8 [facility] Internal Medicine Work Phone: Comment on above: PATIENT NOT FASTINGP ERFORMED BY: LARON [facility] Nvrhok2474 Leon RoadDublin [place] [id number] Albumin/Globulin [Mass ratio] 1.9 {ratio} Normal 1.1-2.5 [facility] Work Phone: Comment on above: PATIENT NOT FASTINGP ERFORMED BY: CB [facility] Acxpgm4974 Leon RoadDublin [place] [id number] ALP [Catalytic activity/Vol] 62 [iU]/L Normal 25-160 [facility] Work Phone: Comment on above: PATIENT NOT FASTINGP ERFORMED BY: CB [facility] Welawp3892 Leon RoadDublin [place] [id number] ALT [Catalytic activity/Vol] 28 [iU]/L Normal 0-55 [facility] Internal Medicine Work Phone: Comment on above: PATIENT NOT FASTINGP ERFORMED BY: CB [facility] Pfyogb8876 Leon RoadDublin [place] [id number] AST [Catalytic activity/Vol] 23 [iU]/L Normal 0-40 [facility] Internal Medicine Work Phone: Comment on above: PATIENT NOT FASTINGP ERFORMED BY: CB [facility] Csshdy4482 Leon RoadDublin [place] [id number] Bilirubin [Mass/Vol] 0.7 mg/dL Normal 0.0-1.2 [facility] Work Phone: Comment on above: PATIENT NOT FASTINGP ERFORMED BY: CB [facility] Ipsxkp6658 Leon RoadDublin [place] [id number] Calcium [Mass/Vol] 9.3 mg/dL Normal 8.6-10.2 [facility] Internal Medicine Work Phone: Comment on above: PATIENT NOT FASTINGP ERFORMED BY: CB [facility] Mbsekf4366 Leon RoadDublin [place] [id number] Chloride [Moles/Vol] 105 mmol/L Normal 97-108 [facility] Work Phone: Comment on above: PATIENT NOT FASTINGP ERFORMED BY: CB [facility] Dokfqh2154 Leon RoadDublin [place] [id number] CO2 [Moles/Vol] 23 mmol/L Normal 20-32 [facility] Internal Medicine Work Phone: Comment on above: PATIENT NOT FASTINGP ERFORMED BY: CB [facility] Fkrdyf1815 [address] RoadDublin [place] [id number] Creatinine [Mass/Vol] 1.04 mg/dL Normal 0.76-1.27 [facility] Internal Medicine Work Phone: Comment on above: PATIENT NOT FASTINGP ERFORMED BY: CB [facility] Srbkew7961 [address] RoadDublin [place] [id number] GFR/1.73 sq M predicted among blacks CKD-EPI (S/P/Bld) [Vol rate/Area] 85 mL/min/1.73 Normal [facility] Internal Medicine Work Phone: Comment on above: PATIENT NOT FASTINGP ERFORMED BY: CB [facility] Ssyasb6398 [address] RoadDublin [place] [id number] GFR/1.73 sq M predicted among non-blacks CKD-EPI (S/P/Bld) [Vol rate/Area] 73 mL/min/1.73 Normal [facility] Internal Medicine Work Phone: Comment on above: PATIENT NOT FASTINGP ERFORMED BY: CB [facility] Ynehvz7022 Leon RoadDublin [place] [id number] Globulin (S) [Mass/Vol] 2.3 g/dL Normal 1.5-4.5 [facility] Internal Medicine Work Phone: Comment on above: PATIENT NOT FASTINGP ERFORMED BY: CB [facility] Mlbqdf4710 Leon RoadDublin [place] [id number] Glucose [Mass/Vol] 86 mg/dL Normal 65-99 [facility] Internal Medicine Work Phone: Comment on above: PATIENT NOT FASTINGP ERFORMED BY: CB [facility] Pnaevr4633 [address] RoadDublin [place] [id number] Potassium [Moles/Vol] 4.1 mmol/L Normal 3.5-5.2 [facility] Internal Medicine Work Phone: Comment on above: PATIENT NOT FASTINGP ERFORMED BY: CB [facility] Zkvxyr0439 Leon RoadDublin [place] [id number] Protein [Mass/Vol] 6.7 g/dL Normal 6.0-8.5 [facility] Internal Medicine Work Phone: Comment on above: PATIENT NOT FASTINGP ERFORMED BY: CB [facility] Myliyu9749 Leon RoadDublin [place] [id number] Sodium [Moles/Vol] 142 mmol/L Normal 134-144 [facility] Internal Medicine Work Phone: Comment on above: PATIENT NOT FASTINGP ERFORMED BY: CB [facility] Fmlyhj7963 El[address] RoadDublin [place] [id number] Urea nitrogen [Mass/Vol] 12 mg/dL Normal 8-27 [facility] Work Phone: Comment on above: PATIENT NOT FASTINGP ERFORMED BY: LARON Parra6370 [facility] [id number] Urea nitrogen/Creatinine [Mass ratio] 12 mg/mg Normal 10-22 [facility] Work Phone: Comment on above: PATIENT NOT FASTINGP ERFORMED BY: LARON LabWestley Parra6370 [facility] [id number] MICROALBUMINOrdered By: Syst em Telecommunication Operator on 02-05-2012 Albumin DL <= 20 mg/L (U) [Mass/Vol] 21.3 ug/mL Abnormal 0.0-17.0 [facility] Work Phone: Comment on above: PATIENT NOT FASTINGP ERFORMED BY: LARON Richard Okafdf5366 [facility] [id number] Albumin/Creatinine (U) [Mass ratio] 18.1 {mg/g_creat} Normal 0.0-30.0 [facility] Work Phone: Comment on above: PATIENT NOT FASTINGP ERFORMED BY: LARON Richard Yulin6370 [address] [facility] [id number] Creatinine (U) [Mass/Vol] 117.9 mg/dL Normal 22.0-328.0 [facility] Work Phone: Comment on above: PATIENT NOT FASTINGP ERFORMED BY: LARON Jose Fmummz5155 [facility] [id number] TSH (98450)Ordered By: Syste m Telecommunication Operator on 02-05-2012 TSH Qn 1.960 {uIU/mL} Normal 0.450-4.500 Comprehen sive Internal Medicine Work Phone: Comment on above: PATIENT NOT FASTINGP ERFORMED BY: LARON LabEstefanidarlene Ktlpte1200 [address] [facility] [id number] URINALYSIS, W/ MICRO (18113) Ordered By: Video Tape Editor on 02-05-2012 Appearance (U) Clear Normal Comprehens kurtis Internal Medicine Work Phone: Comment on above: PATIENT NOT FASTINGP ERFORMED BY: LARON [facility] Xuvuln6192 [address] RoadDublin [place] [id number] Bilirubin Ql (U) Negative Normal Comprehe nsive Internal Medicine Work Phone: Comment on above: PATIENT NOT FASTINGP ERFORMED BY: LARON [facility] Erlsqs4542 [address] RoadDublin [place] [id number] Color (U) Yellow Normal [facility] Work Phone: Comment on above: PATIENT NOT FASTINGP ERFORMED BY: CB [facility] Nguqpz1161 [address] RoadDublin [place] [id number] Glucose Ql (U) Negative Normal Comprehens kurtis Internal Medicine Work Phone: Comment on above: PATIENT NOT FASTINGP ERFORMED BY: LARON [facility] Sbhbgp1795 [address] RoadDublin [place] [id number] Hemoglobin Ql (U) Negative Normal Compreh ensive Internal Medicine Work Phone: Comment on above: PATIENT NOT FASTINGP ERFORMED BY: LARON [facility] Xelejj8153 [address] RoadDublin [place] [id number] Ketones Ql (U) Negative Normal Comprehens kurtis Internal Medicine Work Phone: Comment on above: PATIENT NOT FASTINGP ERFORMED BY: LARON [facility] Lwluzg9966 Leon RoadDublin [place] [id number] Leukocyte esterase Test strip Ql (U) Negative Normal [facility] Work Phone: Comment on above: PATIENT NOT FASTINGP ERFORMED BY: CB [facility] Oawaek7231 Leon RoadDublin [place] [id number] Microscopic observation LM Nom (Urine sed) MICRON Normal [facility] Work Phone: Comment on above: Microscopic follows if indicated. PATIENT NOT FASTINGP ERFORMED BY: LARON [facility] Nlzyhf9951 Leon RoadDublin [place] [id number] Microscopic observation LM Nom (Urine sed) See below: Normal [facility] Work Phone: Comment on above: PATIENT NOT FASTINGP ERFORMED BY: CB [facility] Djmvuk7675 Leon RoadDublin [place] [id number] Nitrite Ql (U) Negative Normal Comprehens kurtis Internal Medicine Work Phone: Comment on above: PATIENT NOT FASTINGP ERFORMED BY: LARON LabWestley YuJlrair2364 [facility] [id number] pH (U) 6.5 [pH] Normal 5.0-7.5 [facility] Work Phone: Comment on above: PATIENT NOT FASTINGP ERFORMED BY: LARON LabCodarlene YuAjckts3979 [facility] [id number] Protein Ql (U) Negative Normal Comprehens kurtis Internal Medicine Work Phone: Comment on above: PATIENT NOT FASTINGP ERFORMED BY: LARON Yulin6370 [facility] [id number] Specific gravity (U) [Rel density] 1.016 1 Normal 1.005-1.030 [facility] Work Phone: Comment on above: PATIENT NOT FASTINGP ERFORMED BY: LARON Garcia Howirw7395 [facility] [id number] Urobilinogen Test strip (U) [Mass/Vol] 0.2 mg/dL Normal 0.0-1.9 Comprehensi Internal Medicine Work Phone: Comment on above: PATIENT NOT FASTINGP ERFORMED BY: L[facility]ON [facility] Rouxye7151 [facility] [id number] Glucose, PP/2 Hour (38123)Or dered By: Video Tape Editor on 01-22-2010 Glucose 2 Hr post meal [Mass/Vol] 134 mg/dL Normal 65-139 [facility] Work Phone: Comment on above: SOON POSSIBLE; PATIENT WAS FASTINGPERFORMED BY: LARON [facility]Ex[facility] Qxtaho6974 [facility] [id number] Information: [id number] 75G DRAWN@ 1030AM CARBON MONOXIDE (01986)Order ed By: Andie Erazo on 04-19-2009 Carboxyhemoglobin (Bld) [Mass fraction] 5.3 % Abnormal 0.0-1.9 Comprehens kurtis Internal Medicine Work Phone: Comment on above: Environmental Exposu re: Nonsmokers <2.0 Smokers <9.0 Occupational Exposure: LINDA 3.5 . Detection Limit = 0.1 PATIENT NOT FASTINGP ERFORMED BY: [employer] [address] [id number] CBC (Auto) (18327)Ordered By : Andie Erazo on 04-19-2009 Erythrocyte distribution width (RBC) [Ratio] 14.4 % Normal 11.7-15.0 [facility] Internal Medicine Work Phone: Comment on above: PATIENT NOT FASTINGC linical Information: [id number] PERFORMED BY: [employer] [address] [id number] Hematocrit (Bld) [Volume fraction] 51.5 % Abnormal 36.0-50.0 [facility] Internal Medicine Work Phone: Comment on above: PATIENT NOT FASTINGC linical Information: [id number] PERFORMED BY: [employer] [address] [id number] Hemoglobin (Bld) [Mass/Vol] 17.3 g/dL Abnormal 12.5-17.0 [facility] Internal Medicine Work Phone: Comment on above: PATIENT NOT FASTINGC linical Information: [id number] PERFORMED BY: [employer] [id number] MCH (RBC) [Entitic mass] 32.3 pg Normal 27.0-34.0 [facility] Internal Medicine Work Phone: Comment on above: PATIENT NOT FASTINGC linical Information: [id number] PERFORMED BY: [employer] [id number] MCHC (RBC) [Mass/Vol] 33.6 g/dL Normal 32.0-36.0 [facility] Internal Medicine Work Phone: Comment on above: PATIENT NOT FASTINGC linical Information: [id number] PERFORMED BY: [facility] [id number] MCV (RBC) [Entitic vol] 96 fL Normal 80-98 [facility] Work Phone: Comment on above: PATIENT NOT FASTINGC linical Information: [id number] PERFORMED BY: [employer] [id number] Platelets (Bld) [#/Vol] 203 {x10E3/uL} Normal 140-415 [facility] Work Phone: Comment on above: PATIENT NOT FASTINGC linical Information: [id number] PERFORMED BY: [employer] [id number] RBC (Bld) [#/Vol] 5.36 {x10E6/uL} Normal 4.10-5.60 [facility] Internal Medicine Work Phone: Comment on above: PATIENT NOT FASTINGC linical Information: [id number] PERFORMED BY: [employer] [id number] WBC (Bld) [#/Vol] 5.8 {x10E3/uL} Normal 4.0-10.5 [facility] Internal Medicine Work Phone: Comment on above: PATIENT NOT FASTINGC linical Information: [id number] PERFORMED BY: [employer] [id number] HEPATIC FUNCTION PANEL (8007 6)Ordered By: Andie Erazo on 04-19-2009 Albumin [Mass/Vol] 4.6 g/dL Normal 3.6-4.8 [facility] Internal Medicine Work Phone: Comment on above: PATIENT NOT FASTINGP ERFORMED BY: [employer] [id number] ALP [Catalytic activity/Vol] 70 [iU]/L Normal 25-160 [facility] Internal Medicine Work Phone: Comment on above: PATIENT NOT FASTINGP ERFORMED BY: [employer] [id number] ALT [Catalytic activity/Vol] 36 [iU]/L Normal 0-55 [facility] Work Phone: Comment on above: PATIENT NOT FASTINGP ERFORMED BY: [facility] [id number] AST [Catalytic activity/Vol] 24 [iU]/L Normal 0-40 [facility] Work Phone: Comment on above: PATIENT NOT FASTINGP ERFORMED BY: Lab[address] [id number] Bilirubin [Mass/Vol] 0.6 mg/dL Normal 0.1-1.2 [facility] Internal Medicine Work Phone: Comment on above: PATIENT NOT FASTINGP ERFORMED BY: Lab[address] [id number] Bilirubin.direct [Mass/Vol] 0.14 mg/dL Normal 0.00-0.40 [facility] Work Phone: Comment on above: PATIENT NOT FASTINGP ERFORMED BY: Lab[address] [id number] Protein [Mass/Vol] 7.1 g/dL Normal 6.0-8.5 [facility] Internal Medicine Work Phone: Comment on above: PATIENT NOT FASTINGP ERFORMED BY: [employer] [id number] Lipid Panel ([id number])Ordered B y: Andie Erazo on 04-19-2009 Cholesterol [Mass/Vol] 248 mg/dL Abnormal 100-199 [facility] Internal Medicine Work Phone: Comment on above: PATIENT NOT FASTINGP ERFORMED BY: Lab[address] [id number] Cholesterol in HDL [Mass/Vol] 46 mg/dL Normal [facility] Work Phone: Comment on above: According to ATP-III Guidelines, HDL-C >59 mg/dL is considered anegative risk factor for CHD. PATIENT NOT FASTINGP ERFORMED BY: BN [facility] [address] [id number] Cholesterol in LDL [Mass/Vol] 158 mg/dL Abnormal 0-99 [facility] Work Phone: Comment on above: PATIENT NOT FASTINGP ERFORMED BY: [employer] [address] [id number] Cholesterol in LDL/Cholesterol in HDL [Mass ratio] 3.4 {ratio_units} Normal 0.0-3.6 [facility] Work Phone: Comment on above: PATIENT NOT FASTINGP ERFORMED BY: [employer] [id number] Cholesterol in VLDL [Mass/Vol] 44 mg/dL Abnormal 5-40 [facility] Work Phone: Comment on above: PATIENT NOT FASTINGP ERFORMED BY: [employer] [id number] Triglyceride [Mass/Vol] 219 mg/dL Abnormal 0-149 [facility] Work Phone: Comment on above: PATIENT NOT FASTINGP ERFORMED BY: [employer] [address] [id number] CARBON MONOXIDE ([id number])Order ed By: Olga Spears on 02-18-2009 Carboxyhemoglobin (Bld) [Mass fraction] 8.7 % Abnormal 0.0-1.9 [facility] Internal Medicine Work Phone: Comment on above: Environmental Exposu re: Nonsmokers <2.0 Smokers <9.0 Occupational Exposure: LINDA 3.5 . Detection Limit = 0.1 PATIENT NOT FASTINGP ERFORMED BY: [employer] [id number] CBC WITH MANUAL DIFF (02463) Ordered By: Olga Spears on 02-18-2009 Basophils (Bld) [#/Vol] 0.0 {x10E3/uL} Normal 0.0-0.2 [facility] Work Phone: Comment on above: PATIENT NOT FASTINGC linical Information: ADD [id number] PERFORMED BY: [employer] [address] [id number] Basophils/100 WBC (Bld) 0 % Normal 0-3 [facility] Work Phone: Comment on above: PATIENT NOT FASTINGC linical Information: ADD [id number],[id number] PERFORMED BY: [employer] [address] [id number] Eosinophils (Bld) [#/Vol] 0.6 {x10E3/uL} Abnormal 0.0-0.4 [facility] Work Phone: Comment on above: PATIENT NOT FASTINGC linical Information: ADD [id number],[id number] PERFORMED BY: [employer] [address] [id number] Eosinophils/100 WBC (Bld) 8 % Abnormal 0-7 [facility] Work Phone: Comment on above: PATIENT NOT FASTINGC linical Information: ADD 955659,[id number] PERFORMED BY: [employer] [address] [id number] Erythrocyte distribution width (RBC) [Ratio] 14.3 % Normal 11.7-15.0 [facility] Work Phone: Comment on above: PATIENT NOT FASTINGC linical Information: ADD [id number],[id number] PERFORMED BY: [employer] [address] [id number] Hematocrit (Bld) [Volume fraction] 52.8 % Abnormal 36.0-50.0 [facility] Work Phone: Comment on above: PATIENT NOT FASTINGC linical Information: ADD [id number],[id number] PERFORMED BY: [employer] [address] [id number] Hemoglobin (Bld) [Mass/Vol] 18.0 g/dL Abnormal 12.5-17.0 [facility] Work Phone: Comment on above: PATIENT NOT FASTINGC linical Information: ADD [id number],[id number] PERFORMED BY: [employer] [address] [id number] Lymphocytes (Bld) [#/Vol] 1.7 {x10E3/uL} Normal 0.7-4.5 [facility] Work Phone: Comment on above: PATIENT NOT FASTINGC linical Information: ADD [id number],[id number] PERFORMED BY: [employer] [address] [id number] Lymphocytes/100 WBC (Bld) 24 % Normal 14-46 [facility] Work Phone: Comment on above: PATIENT NOT FASTINGC linical Information: ADD 833158,[id number] PERFORMED BY: [employer] [address] [id number] MCH (RBC) [Entitic mass] 32.7 pg Normal 27.0-34.0 [facility] Internal Medicine Work Phone: Comment on above: PATIENT NOT FASTINGC linical Information: ADD [id number],[id number] PERFORMED BY: [employer] [address] [id number] MCHC (RBC) [Mass/Vol] 34.2 g/dL Normal 32.0-36.0 [facility] Internal Medicine Work Phone: Comment on above: PATIENT NOT FASTINGC linical Information: ADD 407653,[id number] PERFORMED BY: [employer] [address] [id number] MCV (RBC) [Entitic vol] 96 fL Normal 80-98 [facility] Work Phone: Comment on above: PATIENT NOT FASTINGC linical Information: ADD [id number] PERFORMED BY: [employer] [address] [id number] Monocytes (Bld) [#/Vol] 0.4 {x10E3/uL} Normal 0.1-1.0 [facility] Internal Medicine Work Phone: Comment on above: PATIENT NOT FASTINGC linical Information: ADD 569415,[id number] PERFORMED BY: [employer] [address] [id number] Monocytes/100 WBC (Bld) 6 % Normal 4-13 [facility] Work Phone: Comment on above: PATIENT NOT FASTINGC linical Information: ADD 990838,[id number] PERFORMED BY: [employer] [address] [id number] Neutrophils (Bld) [#/Vol] 4.3 {x10E3/uL} Normal 1.8-7.8 [facility] Work Phone: Comment on above: PATIENT NOT FASTINGC linical Information: ADD [id number],[id number] PERFORMED BY: [employer] [address] [id number] Neutrophils/100 WBC (Bld) 62 % Normal 40-74 [facility] Work Phone: Comment on above: PATIENT NOT FASTINGC linical Information: ADD [id number],[id number] PERFORMED BY: [employer] [address] [id number] Platelets (Bld) [#/Vol] 189 {x10E3/uL} Normal 140-415 [facility] Work Phone: Comment on above: PATIENT NOT FASTINGC linical Information: ADD [id number] PERFORMED BY: [employer] [address] [id number] RBC (Bld) [#/Vol] 5.51 {x10E6/uL} Normal 4.10-5.60 [facility] Internal Medicine Work Phone: Comment on above: PATIENT NOT FASTINGC linical Information: ADD 783390,[id number] PERFORMED BY: [employer] [address] [id number] WBC (Bld) [#/Vol] 7.0 {x10E3/uL} Normal 4.0-10.5 [facility] Internal Medicine Work Phone: Comment on above: PATIENT NOT FASTINGC linical Information: ADD 939561,[id number] PERFORMED BY: [employer] [id number] METABOLIC PANEL, COMPREHENSI VE (55152)Ordered By: Olga Spears on 02-18-2009 Albumin [Mass/Vol] 4.5 g/dL Normal 3.6-4.8 [facility] Internal Medicine Work Phone: Comment on above: PATIENT NOT FASTINGP ERFORMED BY: BN [facility] [address] [id number] Albumin/Globulin [Mass ratio] 1.8 {ratio} Normal 1.1-2.5 [facility] Work Phone: Comment on above: PATIENT NOT FASTINGP ERFORMED BY: BN [facility] Cs[address]cag[address] [id number] ALP [Catalytic activity/Vol] 76 [iU]/L Normal 25-160 [facility] Work Phone: Comment on above: PATIENT NOT FASTINGP ERFORMED BY: BN [facility] Sub[address]pgjbx[address] [id number] ALT [Catalytic activity/Vol] 41 [iU]/L Normal 0-55 [facility] Work Phone: Comment on above: PATIENT NOT FASTINGP ERFORMED BY: BN [facility] Meep[address]cojm[address] [id number] AST [Catalytic activity/Vol] 27 [iU]/L Normal 0-40 [facility] Work Phone: Comment on above: PATIENT NOT FASTINGP ERFORMED BY: BN [facility] I[address]un[address] [id number] Bilirubin [Mass/Vol] 0.8 mg/dL Normal 0.1-1.2 [facility] Internal Medicine Work Phone: Comment on above: PATIENT NOT FASTINGP ERFORMED BY: BN [facility] [address] [id number] Calcium [Mass/Vol] 9.8 mg/dL Normal 8.5-10.6 [facility] Internal Medicine Work Phone: Comment on above: PATIENT NOT FASTINGP ERFORMED BY: BN [facility] U[address]fer[address] [id number] Chloride [Moles/Vol] 105 mmol/L Normal 97-108 [facility] Work Phone: Comment on above: PATIENT NOT FASTINGP ERFORMED BY: [employer] [id number] CO2 [Moles/Vol] 24 mmol/L Normal 20-32 [facility] Internal Medicine Work Phone: Comment on above: PATIENT NOT FASTINGP ERFORMED BY: [employer] [address] [id number] Creatinine [Mass/Vol] 1.20 mg/dL Normal 0.76-1.27 [facility] Work Phone: Comment on above: PATIENT NOT FASTINGP ERFORMED BY: [employer] [id number] GFR/1.73 sq M predicted among blacks MDRD (S/P/Bld) [Vol rate/Area] mL/min/{1.73_m2} Normal [facility] Work Phone: Comment on above: Note: Persistent red uction for 3 months or more in an eGFR<60 mL/min/1.73 m2 defines CKD. Patients with eGFR values>/=60 mL/min/1.73 m2 may also have CKD if evidence of persistentproteinuria is present. Additional information may be found [email or web address]. PATIENT NOT FASTINGP ERFORMED BY: [employer] [id number] GFR/1.73 sq M.predicted MDRD (S/P/Bld) [Vol rate/Area] mL/min/{1.73_m2} Normal [facility] Work Phone: Comment on above: PATIENT NOT FASTINGP ERFORMED BY: [employer] [address] [id number] Globulin (S) [Mass/Vol] 2.5 g/dL Normal 1.5-4.5 [facility] Work Phone: Comment on above: PATIENT NOT FASTINGP ERFORMED BY: [employer] [address] [id number] Glucose [Mass/Vol] 89 mg/dL Normal 65-99 [facility] Internal Medicine Work Phone: Comment on above: PATIENT NOT FASTINGP ERFORMED BY: BN [facility] [address] [id number] Potassium [Moles/Vol] 4.3 mmol/L Normal 3.5-5.2 [facility] Internal Medicine Work Phone: Comment on above: PATIENT NOT FASTINGP ERFORMED BY: BN [facility] [address] [id number] Protein [Mass/Vol] 7.0 g/dL Normal 6.0-8.5 [facility] Internal Medicine Work Phone: Comment on above: PATIENT NOT FASTINGP ERFORMED BY: BN [facility] [address] [id number] Sodium [Moles/Vol] 140 mmol/L Normal 135-145 [facility] Internal Medicine Work Phone: Comment on above: PATIENT NOT FASTINGP ERFORMED BY: BN [facility] [address] [id number] Urea nitrogen [Mass/Vol] 14 mg/dL Normal 5-26 [facility] Internal Medicine Work Phone: Comment on above: PATIENT NOT FASTINGP ERFORMED BY: BN [facility] Jbbrtagjez7400 [facility] [id number] Urea nitrogen/Creatinine [Mass ratio] 12 mg/mg Normal 8-27 [facility] Internal Medicine Work Phone: Comment on above: PATIENT NOT FASTINGP ERFORMED BY: BN [facility] [address] [id number] PSA (PROSTATE SPECIFIC ANTIG EN) (V76.44)Ordered By: Olga Spears on 02-18-2009 Prostate specific Ag [Mass/Vol] 2.8 ng/mL Normal 0.0-4.0 [facility] Internal Medicine Work Phone: Comment on above: Jolanta ECLIA methodol ogy. .According to the [place] [employer], PSA should beundetectable after radical prostatectomy. A PSA of less than0.5 ng/mL (or undetectable) is not likely to be associated withdisease recurrence within five years of treatment.Values obtained with different assay methods or kits cannot be usedinterchangeably. Results cannot be interpreted as absolute evidenceof the presence or absence of malignant disease. PATIENT NOT FASTINGP ERFORMED BY: [employer] Cqucgkexwx3111 [facility] [id number] TSH ([id number])Ordered By: Estrellita Spears on 02-18-2009 TSH Qn 1.960 {uIU/mL} Normal 0.450-4.500 [facility] Internal Medicine Work Phone: Comment on above: Effective January 282008, TSH will be changing to the [employer] ECLIA methodology. The reference interval will be [...] - 4.500 PATIENT NOT FASTINGP ERFORMED BY: [employer] Carnraxdgb2854 [facility] [id number] CBC WITH MANUAL DIFF (40537) Ordered By: Andie Erazo on 01-04-2009 Basophils (Bld) [#/Vol] 0.0 {x10E3/uL} Normal 0.0-0.2 [facility] Work Phone: Comment on above: PATIENT WAS FASTINGC linical Information: ADD DRAW FEE 761762 ADD J 72560 PERFORMED BY: [employer]70 [facility] [id number] Basophils/100 WBC (Bld) 0 % Normal 0-3 [facility] Work Phone: Comment on above: PATIENT WAS FASTINGC linical Information: ADD DRAW FEE 552594 ADD J 31064 PERFORMED BY: [employer]70 [facility] [id number] Eosinophils (Bld) [#/Vol] 0.6 {x10E3/uL} Abnormal 0.0-0.4 [facility] Work Phone: Comment on above: PATIENT WAS FASTINGC linical Information: ADD DRAW FEE 370881 ADD J 20643 PERFORMED BY: [place] [id number] [facility] [id number] Eosinophils/100 WBC (Bld) 9 % Abnormal 0-7 [facility] Work Phone: Comment on above: PATIENT WAS FASTINGC linical Information: ADD DRAW FEE 236045 ADD J PERFORMED BY: [address] [id number] Erythrocyte distribution width (RBC) [Ratio] 14.5 % Normal 11.7-15.0 [facility] Work Phone: Comment on above: PATIENT WAS FASTINGC linical Information: ADD DRAW FEE 081011 ADD J PERFORMED BY: [address] [id number] Hematocrit (Bld) [Volume fraction] 52.7 % Abnormal 36.0-50.0 [facility] Work Phone: Comment on above: PATIENT WAS FASTINGC linical Information: ADD DRAW FEE 469892 ADD J PERFORMED BY: [place] [id number] [facility] [id number] Hemoglobin (Bld) [Mass/Vol] 17.7 g/dL Abnormal 12.5-17.0 [facility] Work Phone: Comment on above: PATIENT WAS FASTINGC linical Information: ADD DRAW FEE 493807 ADD J 49243 PERFORMED BY: [address] [id number] Lymphocytes (Bld) [#/Vol] 1.5 {x10E3/uL} Normal 0.7-4.5 [facility] Work Phone: Comment on above: PATIENT WAS FASTINGC linical Information: ADD DRAW FEE 055138 ADD J 71734 PERFORMED BY: [address] [id number] Lymphocytes/100 WBC (Bld) 23 % Normal 14-46 [facility] Internal Medicine Work Phone: Comment on above: PATIENT WAS FASTINGC linical Information: ADD DRAW FEE 204910 ADD J 16290 PERFORMED BY: [facility]6370 [facility] [id number] MCH (RBC) [Entitic mass] 32.5 pg Normal 27.0-34.0 [facility] Internal Medicine Work Phone: Comment on above: PATIENT WAS FASTINGC linical Information: ADD DRAW FEE 120444 ADD J 79452 PERFORMED BY: [address] [id number] MCHC (RBC) [Mass/Vol] 33.6 g/dL Normal 32.0-36.0 [facility] Internal Medicine Work Phone: Comment on above: PATIENT WAS FASTINGC linical Information: ADD DRAW FEE 427615 ADD J 20267 PERFORMED BY: [address] [id number] MCV (RBC) [Entitic vol] 97 fL Normal 80-98 [facility] Internal Medicine Work Phone: Comment on above: PATIENT WAS FASTINGC linical Information: ADD DRAW FEE 168079 ADD J 71783 PERFORMED BY: [address] [id number] Monocytes (Bld) [#/Vol] 0.4 {x10E3/uL} Normal 0.1-1.0 [facility] Internal Medicine Work Phone: Comment on above: PATIENT WAS FASTINGC linical Information: ADD DRAW FEE 693847 ADD J 52299 PERFORMED BY: [address] [id number] Monocytes/100 WBC (Bld) 6 % Normal 4-13 [facility] Work Phone: Comment on above: PATIENT WAS FASTINGC linical Information: ADD DRAW FEE 275494 ADD J 09996 PERFORMED BY: [address] [id number] Neutrophils (Bld) [#/Vol] 4.0 {x10E3/uL} Normal 1.8-7.8 [facility] Internal Medicine Work Phone: Comment on above: PATIENT WAS FASTINGC linical Information: ADD DRAW FEE 019073 ADD J 88924 PERFORMED BY: [employer] Jdbfly4177 [facility] [id number] Neutrophils/100 WBC (Bld) 62 % Normal 40-74 [facility] Internal Medicine Work Phone: Comment on above: PATIENT WAS FASTINGC linical Information: ADD DRAW FEE 894623 ADD J 40654 PERFORMED BY: [employer] Rweaib[address] [id number] Platelets (Bld) [#/Vol] 211 {x10E3/uL} Normal 140-415 [facility] Internal Medicine Work Phone: Comment on above: Please note refere nce interval change PATIENT WAS FASTINGC linical Information: ADD DRAW FEE 411251 ADD J 51254 PERFORMED BY: L[employer]ON [employer] Elagtm9642 [facility] [id number] RBC (Bld) [#/Vol] 5.44 {x10E6/uL} Normal 4.10-5.60 [facility] Internal Medicine Work Phone: Comment on above: PATIENT WAS FASTINGC linical Information: ADD DRAW FEE 767092 ADD J 24025 PERFORMED BY: [employer] Popgzc8913 [facility] [id number] WBC (Bld) [#/Vol] 6.5 {x10E3/uL} Normal 4.0-10.5 [facility] Internal Medicine Work Phone: Comment on above: PATIENT WAS FASTINGC linical Information: ADD DRAW FEE 274369 ADD J 75497 PERFORMED BY: [employer] Kapymc4776 [facility] [id number] LIPID PANEL (78901)Ordered B y: Andie Kacey on 01-04-2009 Cholesterol [Mass/Vol] 225 mg/dL Abnormal 100-199 [facility] Internal Medicine Work Phone: Comment on above: PATIENT WAS FASTINGP ERFORMED BY: [facility] Gaggfv0703 [facility] [id number] Cholesterol in HDL [Mass/Vol] 46 mg/dL Normal [facility] Work Phone: Comment on above: According to ATP-III Guidelines, HDL-C >59 mg/dL is considered anegative risk factor for CHD. PATIENT WAS FASTINGP ERFORMED BY: [facility] Diqchu8546 [facility] [id number] Cholesterol in LDL [Mass/Vol] 140 mg/dL Abnormal 0-99 [facility] Work Phone: Comment on above: PATIENT WAS FASTINGP ERFORMED BY: [facility] Nrinvt5376 [facility] [id number] Cholesterol in LDL/Cholesterol in HDL [Mass ratio] 3.0 {ratio_units} Normal 0.0-3.6 [facility] Work Phone: Comment on above: PATIENT WAS FASTINGP ERFORMED BY: [facility] Tyzqil2455 [facility] [id number] Cholesterol in VLDL [Mass/Vol] 39 mg/dL Normal 5-40 [facility] Work Phone: Comment on above: PATIENT WAS FASTINGP ERFORMED BY: [facility] Jclfzf5233 [facility] [id number] Triglyceride [Mass/Vol] 196 mg/dL Abnormal 0-149 [facility] Work Phone: Comment on above: PATIENT WAS FASTINGP ERFORMED BY: [facility] Nuixkf9530 [facility] [id number] METABOLIC PANEL, COMPREHENSI VE ([id number])Ordered By: Andie Erazo on 01-04-2009 Albumin [Mass/Vol] 4.6 g/dL Normal 3.6-4.8 [facility] Internal Medicine Work Phone: Comment on above: PATIENT WAS FASTINGP ERFORMED BY: [facility] Ajgiwx8006 [facility] [id number] Albumin/Globulin [Mass ratio] 1.8 {ratio} Normal 1.1-2.5 [facility] Work Phone: Comment on above: PATIENT WAS FASTINGP ERFORMED BY: L[facility]6370 [facility] [id number] ALP [Catalytic activity/Vol] 79 [iU]/L Normal 25-160 [facility] Work Phone: Comment on above: PATIENT WAS FASTINGP ERFORMED BY: L[employer]ON [place] [id number] [facility] [id number] ALT [Catalytic activity/Vol] 33 [iU]/L Normal 0-55 [facility] Work Phone: Comment on above: PATIENT WAS FASTINGP ERFORMED BY: LARON [facility]6[address] [facility] [id number] AST [Catalytic activity/Vol] 24 [iU]/L Normal 0-40 [facility] Work Phone: Comment on above: PATIENT WAS FASTINGP ERFORMED BY: LARON [facility] Xmbhyg4964 [facility] [id number] Bilirubin [Mass/Vol] 0.7 mg/dL Normal 0.1-1.2 [facility] Work Phone: Comment on above: PATIENT WAS FASTINGP ERFORMED BY: LARON [facility]6370 [facility] [id number] Calcium [Mass/Vol] 10.0 mg/dL Normal 8.5-10.6 [facility] Internal Medicine Work Phone: Comment on above: PATIENT WAS FASTINGP ERFORMED BY: [facility]6370 [facility] [id number] Chloride [Moles/Vol] 103 mmol/L Normal 97-108 [facility] Work Phone: Comment on above: PATIENT WAS FASTINGP ERFORMED BY: [facility]6[address] [facility] [id number] CO2 [Moles/Vol] 23 mmol/L Normal 20-32 [facility] Internal Medicine Work Phone: Comment on above: PATIENT WAS FASTINGP ERFORMED BY: [facility]6370 [facility] [id number] Creatinine [Mass/Vol] 1.23 mg/dL Normal 0.76-1.27 [facility] Internal Medicine Work Phone: Comment on above: PATIENT WAS FASTINGP ERFORMED BY: LARON [facility]6370 [facility] [id number] GFR/1.73 sq M predicted among blacks MDRD (S/P/Bld) [Vol rate/Area] mL/min/{1.73_m2} Normal [facility] Work Phone: Comment on above: Note: Persistent red uction for 3 months or more in an eGFR<60 mL/min/1.73 m2 defines CKD. Patients with eGFR values>/=60 mL/min/1.73 m2 may also have CKD if evidence of persistentproteinuria is present. Additional information may be found [email or web address]. PATIENT WAS FASTINGP ERFORMED BY: [facility]6[address] [facility] [id number] GFR/1.73 sq M.predicted MDRD (S/P/Bld) [Vol rate/Area] 59 mL/min/{1.73_m2} Abnormal Comprehensiv e Internal Medicine Work Phone: Comment on above: PATIENT WAS FASTINGP ERFORMED BY: [facility]6[address] [facility] [id number] Globulin (S) [Mass/Vol] 2.5 g/dL Normal 1.5-4.5 [facility] Internal Medicine Work Phone: Comment on above: PATIENT WAS FASTINGP ERFORMED BY: [facility] [id number] Glucose [Mass/Vol] 98 mg/dL Normal 65-99 [facility] Internal Medicine Work Phone: Comment on above: PATIENT WAS FASTINGP ERFORMED BY: [facility]6[address] [facility] [id number] Potassium [Moles/Vol] 4.3 mmol/L Normal 3.5-5.2 [facility] Internal Medicine Work Phone: Comment on above: PATIENT WAS FASTINGP ERFORMED BY: CB [facility] [id number] [facility] [place] [id number] Protein [Mass/Vol] 7.1 g/dL Normal 6.0-8.5 [facility] Internal Medicine Work Phone: Comment on above: PATIENT WAS FASTINGP ERFORMED BY: CB [facility] [id number] Leon [facility] [id number] Sodium [Moles/Vol] 141 mmol/L Normal 135-145 [facility] Internal Medicine Work Phone: Comment on above: PATIENT WAS FASTINGP ERFORMED BY: CB [facility] [id number] Leon [facility] [id number] Urea nitrogen [Mass/Vol] 11 mg/dL Normal 5-26 [facility] Internal Medicine Work Phone: Comment on above: PATIENT WAS FASTINGP ERFORMED BY: CB [facility] [id number] Leon [facility] [id number] Urea nitrogen/Creatinine [Mass ratio] 9 mg/mg Normal 8-27 [facility] Internal Medicine Work Phone: Comment on above: PATIENT WAS FASTINGP ERFORMED BY: LARON [facility] Alfeoz3169 [facility] [id number] MICROALBUMINOrdered By: Andie Erazo on 01-04-2009 Albumin DL <= 20 mg/L (U) [Mass/Vol] 25.9 ug/mL Abnormal 0.0-17.0 [facility] Work Phone: Comment on above: PATIENT WAS FASTINGP ERFORMED BY: CB [facility] [id number] [facility] [place] [id number] Albumin/Creatinine DL <= 20 mg/L (U) [Mass ratio] 15.3 {ug/mg_creat} Normal 0.0-30.0 [facility] Work Phone: Comment on above: PATIENT WAS FASTINGP ERFORMED BY: CB [facility] [id number] Leon [facility] [id number] Creatinine (U) [Mass/Vol] 169.4 mg/dL Normal 22.0-328.0 [facility] Work Phone: Comment on above: PATIENT WAS FASTINGP ERFORMED BY: [facility] [id number] [facility] [id number] TSH ([id number])Ordered By: Andie Erazo on 01-04-2009 TSH Qn 1.340 {uIU/mL} Normal 0.450-4.500 [facility] Internal Medicine Work Phone: Comment on above: PATIENT WAS FASTINGP ERFORMED BY: [facility] [id number] [facility] [id number] Vital Signs Date Time Vital Sign Value Performing Clinician Facility 12-13-2024 08:20-0400 Body mass index (BMI) [Ratio] 30.4 kg/m2 Dr. Reema Myers MD Work Phone: [facility] 12-13-2024 08:20-0400 Body temperature 97.4 [degF] Dr. Reema Myers MD Work Phone: [facility] 12-13-2024 08:20-0400 Body weight 104.[address] Remea Myers MD Work Phone: [facility] 12-13-2024 08:20-0400 Diastolic blood pressure 64 mm[Hg] Dr. Reema Myers MD Work Phone: [facility] 12-13-2024 08:20-0400 Heart rate 74 /min Dr. Reema Myers MD Work Phone: [facility] 12-13-2024 08:20-0400 Respiratory rate 16 /min Dr. Reema Myers MD Work Phone: [facility] 12-13-2024 08:20-0400 SaO2% (BldA) [Mass fraction] 93 % Dr. Reema Myers MD Work Phone: [facility] 12-13-2024 08:20-0400 Systolic blood pressure 95 mm[Hg] Dr. Reema Myers MD Work Phone: [facility] 08-30-2024 14:04-0500 Body height 185.[address] Reema Myers MD Work Phone: [facility] 08-30-2024 14:03-0500 Body mass index (BMI) [Ratio] 31.4 kg/m2 Dr. Reema Myers MD Work Phone: [facility] 08-30-2024 14:03-0500 Body temperature 97.8 [degF] Dr. Reema Myers MD Work Phone: [facility] 08-30-2024 14:03-0500 Body weight 107.[address] Reema Myers MD Work Phone: [facility] 08-30-2024 14:03-0500 Diastolic blood pressure 72 mm[Hg] Dr. Reema Myers MD Work Phone: [facility] 08-30-2024 14:03-0500 Heart rate 99 /min Dr. Reema Myers MD Work Phone: [facility] 08-30-2024 14:03-0500 Respiratory rate 16 /min Dr. Reema Myers MD Work Phone: [facility] 08-30-2024 14:03-0500 SaO2% (BldA) [Mass fraction] 93 % Dr. Reema Myers MD Work Phone: [facility] 08-30-2024 14:03-0500 Systolic blood pressure 110 mm[Hg] Dr. Reema Myers MD Work Phone: [facility] 11-06-2023 16:04-0400 Body temperature 98.6 [degF] Dr. Reema Myers Work Phone: [facility] 11-06-2023 16:04-0400 Diastolic blood pressure 76 mm[Hg] Dr. Reema Myers Work Phone: [facility] 11-06-2023 16:04-0400 Heart rate 80 /min Dr. Reema Myers Work Phone: [facility] 11-06-2023 16:04-0400 Respiratory rate 18 /min Dr. Reema Myers Work Phone: [facility] 11-06-2023 16:04-0400 SaO2% (BldA) [Mass fraction] 98 % Dr. Reema Myers Work Phone: [facility] 11-06-2023 16:04-0400 Systolic blood pressure 119 mm[Hg] Dr. Reema Myers Work Phone: [facility] 11-05-2023 15:19-0400 Body height 185.[address] Reema Myers Work Phone: [facility] 11-05-2023 15:19-0400 Body weight [address] Reema Myers Work Phone: [facility] 11-05-2023 08:04-0400 Body height 185.[address] Reema Myers Work Phone: [facility] 11-05-2023 08:04-0400 Body mass index (BMI) [Ratio] 31.6 kg/m2 Dr. Reema Myers Work Phone: [facility] 11-05-2023 08:04-0400 Body weight [address] Reema Myers Work Phone: [facility] 11-05-2023 07:58-0400 Body temperature 97.6 [degF] Dr. Reema Myesr Work Phone: [facility] 11-05-2023 07:58-0400 Diastolic blood pressure 71 mm[Hg] Dr. Reema Myers Work Phone: [facility] 11-05-2023 07:58-0400 Heart rate 63 /min Dr. Reema Myers Work Phone: [facility] 11-05-2023 07:58-0400 Respiratory rate 18 /min Dr. Reema Myers Work Phone: [facility] 11-05-2023 07:58-0400 SaO2% (BldA) [Mass fraction] 98 % Dr. Reema Myers Work Phone: [facility] 11-05-2023 07:58-0400 Systolic blood pressure 113 mm[Hg] Dr. Reema Myers Work Phone: [facility] 11-04-2023 21:38-0400 Inhaled oxygen flow rate 2 L/min Dr. Reema Myers Work Phone: [facility] 11-04-2023 17:30-0400 Body temperature 97.9 [degF] Dr. Reema Myers Work Phone: [facility] 11-04-2023 17:30-0400 Diastolic blood pressure 58 mm[Hg] Dr. Reema Myers Work Phone: [facility] 11-04-2023 17:30-0400 Heart rate 65 /min Dr. Reema Myers Work Phone: [facility] 11-04-2023 17:30-0400 Respiratory rate 18 /min Dr. Reema Myers Work Phone: [facility] 11-04-2023 17:30-0400 SaO2% (BldA) [Mass fraction] 98 % Dr. Reema Myers Work Phone: [facility] 11-04-2023 17:30-0400 Systolic blood pressure 90 mm[Hg] Dr. Reema Myers Work Phone: [facility] 11-04-2023 14:58-0400 Body mass index (BMI) [Ratio] 22.3 kg/m2 Dr. Reema Myers Work Phone: [facility] 11-04-2023 14:58-0400 Body weight 76.[address] Reema Myers Work Phone: [facility] 11-04-2023 12:16-0400 Body height 185.[address] Reema Myers Work Phone: [facility] 10-20-2023 09:07-0400 Body temperature 96.7 [degF] Dr. Reema Myers Work Phone: [facility] 10-20-2023 09:07-0400 Diastolic blood pressure 67 mm[Hg] Dr. Reema Myers Work Phone: [facility] 10-20-2023 09:07-0400 Heart rate 72 /min Dr. Reema Myers Work Phone: [facility] 10-20-2023 09:07-0400 Respiratory rate 16 /min Dr. Reema Myers Work Phone: [facility] 10-20-2023 09:07-0400 SaO2% (BldA) [Mass fraction] 94 % Dr. Reema Myers Work Phone: [facility] 10-20-2023 09:07-0400 Systolic blood pressure 108 mm[Hg] Dr. Reema Myers Work Phone: [facility] 10-20-2023 07:54-0400 Body height 185.[address] Reema Myers Work Phone: [facility] 10-20-2023 07:54-0400 Body mass index (BMI) [Ratio] 31.1 kg/m2 Dr. Reema Myers Work Phone: [facility] 10-20-2023 07:54-0400 Body weight [address] Reema Myers Work Phone: [facility] 09-29-2023 13:59-0400 Body height 185.[address] Reema Myers Work Phone: [facility] 09-29-2023 13:59-0400 Body mass index (BMI) [Ratio] 32.3 kg/m2 Dr. Reema Myers Work Phone: [facility] 09-29-2023 13:59-0400 Body weight 111.[address] Reema Myers Work Phone: [facility] 09-29-2023 13:59-0400 Diastolic blood pressure 67 mm[Hg] Dr. Reema Myers Work Phone: [facility] 09-29-2023 13:59-0400 Heart rate 73 /min Dr. Reema Myers Work Phone: [facility] 09-29-2023 13:59-0400 Respiratory rate 17 /min Dr. Reema Myers Work Phone: [facility] 09-29-2023 13:59-0400 SaO2% (BldA) [Mass fraction] 95 % Dr. Reema Myers Work Phone: [facility] 09-29-2023 13:59-0400 Systolic blood pressure 101 mm[Hg] Dr. Reema Myers Work Phone: [facility] 08-13-2023 08:29-0500 Body height 185.[address] Reema Myers Work Phone: [facility] 08-13-2023 08:29-0500 Body mass index (BMI) [Ratio] 30.7 kg/m2 Dr. Reema Myers Work Phone: [facility] 08-13-2023 08:29-0500 Body temperature 97.8 [degF] Dr. Reema Myers Work Phone: [facility] 08-13-2023 08:29-0500 Body weight 105.[address] Reema Myers Work Phone: [facility] 08-13-2023 08:29-0500 Diastolic blood pressure 83 mm[Hg] Dr. Reema Myers Work Phone: [facility] 08-13-2023 08:29-0500 Heart rate 76 /min Dr. Reema Myers Work Phone: [facility] 08-13-2023 08:29-0500 Respiratory rate 18 /min Dr. Reema Myers Work Phone: [facility] 08-13-2023 08:29-0500 SaO2% (BldA) [Mass fraction] 95 % Dr. Reema Myers Work Phone: [facility] 08-13-2023 08:29-0500 Systolic blood pressure 124 mm[Hg] Dr. Reema Myers Work Phone: [facility] 07-01-2023 11:33-0500 Body height 185.[address] Reema Myers Work Phone: [facility] 07-01-2023 11:33-0500 Body mass index (BMI) [Ratio] 29.9 kg/m2 Dr. Reema Myers Work Phone: [facility] 07-01-2023 11:33-0500 Body temperature 96.9 [degF] Dr. Reema Myers Work Phone: [facility] 07-01-2023 11:33-0500 Body weight 103.[address] Reema Myers Work Phone: [facility] 07-01-2023 11:33-0500 Diastolic blood pressure 68 mm[Hg] Dr. Reema Myers Work Phone: [facility] 07-01-2023 11:33-0500 Heart rate 84 /min Dr. Reema Myers Work Phone: [facility] 07-01-2023 11:33-0500 Respiratory rate 18 /min Dr. Reema Myers Work Phone: [facility] 07-01-2023 11:33-0500 SaO2% (BldA) [Mass fraction] 94 % Dr. Reema Myers Work Phone: [facility] 07-01-2023 11:33-0500 Systolic blood pressure 107 mm[Hg] Dr. Reema Myers Work Phone: [facility] 06-29-2023 12:40-0500 Body height 185.[address] Remea Myers Work Phone: [facility] 06-29-2023 12:40-0500 Body weight 99.[address] Reema Myers Work Phone: [facility] 06-29-2023 12:40-0500 Heart rate 77 /min Dr. Reema Myers Work Phone: [facility] 06-29-2023 12:40-0500 SaO2% (BldA) [Mass fraction] 94 % Dr. Reema Myers Work Phone: [facility] 02-03-2023 18:23-0400 Body height 185.[address] Reema Myers Work Phone: [facility] 11-26-2022 08:58-0400 Body weight 106.[address] Reema Myers Work Phone: [facility] 11-26-2022 08:58-0400 Diastolic blood pressure 73 mm[Hg] Dr. Reema Myers Work Phone: [facility] 11-26-2022 08:58-0400 Heart rate 79 /min Dr. Reema Myers Work Phone: [facility] 11-26-2022 08:58-0400 Respiratory rate 24 /min Dr. Reema Myers Work Phone: [facility] 11-26-2022 08:58-0400 Systolic blood pressure 113 mm[Hg] Dr. Reema Myers Work Phone: [facility] 05-27-2022 10:42-0500 Body height 185.[address] Reema Myers Work Phone: [facility] Work Phone: 05-27-2022 10:42-0500 Body weight 108.[address] Reema Myers Work Phone: [facility] Work Phone: 05-26-2022 08:04-0500 Body mass index (BMI) [Ratio] 31.5 kg/m2 Dr. Reema Myers Work Phone: [facility] Work Phone: 05-06-2022 10:43-0500 Body height 185.[address] Reema Myers Work Phone: [facility] Work Phone: 05-06-2022 10:43-0500 Body weight 108.[address] Reema Myers Work Phone: [facility] Work Phone: 05-05-2022 08:53-0500 Body mass index (BMI) [Ratio] 31.5 kg/m2 Dr. Reema Myers Work Phone: [facility] Work Phone: 04-09-2022 15:50-0400 Body mass index (BMI) [Ratio] 31.5 kg/m2 Dr. Reema Myers Work Phone: [facility] Work Phone: 04-09-2022 15:50-0400 Body weight 108.[address] Reema Myers Work Phone: [facility] Work Phone: 04-09-2022 15:50-0400 Diastolic blood pressure 83 mm[Hg] Dr. Reema Myers Work Phone: [facility] Work Phone: 04-09-2022 15:50-0400 Heart rate 73 /min Dr. Reema Myers Work Phone: [facility] Work Phone: 04-09-2022 15:50-0400 Respiratory rate 18 /min Dr. Reema Myers Work Phone: [facility] Work Phone: 04-09-2022 15:50-0400 SaO2% (BldA) [Mass fraction] 95 % Dr. Reema Myers Work Phone: [facility] Work Phone: 04-09-2022 15:50-0400 Systolic blood pressure 131 mm[Hg] Dr. Reema Myers Work Phone: [facility] Work Phone: 02-09-2022 11:24-0400 Diastolic blood pressure 80 mm[Hg] Dr. Reema Myers Work Phone: [facility] Work Phone: 02-09-2022 11:24-0400 Heart rate 81 /min Dr. Reema Myers Work Phone: [facility] Work Phone: 02-09-2022 11:24-0400 Respiratory rate 18 /min Dr. Reema Myers Work Phone: [facility] Work Phone: 02-09-2022 11:24-0400 Systolic blood pressure 126 mm[Hg] Dr. Reema Myers Work Phone: [facility] Work Phone: 02-02-2022 10:58-0400 Body height 185.[address] Reema Myers Work Phone: [facility] Work Phone: 02-02-2022 10:58-0400 Body weight 106.[address] Reema Myers Work Phone: [facility] Work Phone: 01-30-2022 08:38-0400 Body mass index (BMI) [Ratio] 30.9 kg/m2 Dr. Reema Myers Work Phone: [facility] Work Phone: 01-26-2022 15:14-0400 Body mass index (BMI) [Ratio] 31 kg/m2 Dr. Reema Myers Work Phone: [facility] Work Phone: 01-26-2022 15:14-0400 Body weight 106.[address] Reema Myers Work Phone: [facility] Work Phone: 01-26-2022 15:14-0400 Diastolic blood pressure 62 mm[Hg] Dr. Reema Myers Work Phone: [facility] Work Phone: 01-26-2022 15:14-0400 Heart rate 76 /min Dr. Reema Myers Work Phone: [facility] Work Phone: 01-26-2022 15:14-0400 Respiratory rate 16 /min Dr. Reema Myers Work Phone: [facility] Work Phone: 01-26-2022 15:14-0400 Systolic blood pressure 108 mm[Hg] Dr. Reema Myers Work Phone: [facility] Work Phone: 10-31-2021 14:54-0400 Body mass index (BMI) [Ratio] 31.5 kg/m2 Dr. Reema Myers Work Phone: [facility] Work Phone: 10-31-2021 14:54-0400 Body weight 108.[address] Reema Myers Work Phone: [facility] Work Phone: 10-31-2021 14:54-0400 Diastolic blood pressure 77 mm[Hg] Dr. Reema Myers Work Phone: [facility] Work Phone: 10-31-2021 14:54-0400 Heart rate 85 /min Dr. Reema Myers Work Phone: [facility] Work Phone: 10-31-2021 14:54-0400 Respiratory rate 18 /min Dr. Reema Myers Work Phone: [facility] Work Phone: 10-31-2021 14:54-0400 SaO2% (BldA) [Mass fraction] 95 % Dr. Reema Myers Work Phone: [facility] Work Phone: 10-31-2021 14:54-0400 Systolic blood pressure 121 mm[Hg] Dr. Reema Myesr Work Phone: [facility] Work Phone: 10-31-2021 14:54-0400 Body height 185.[address] Reema Myers Work Phone: [facility] Work Phone: 10-31-2021 14:54-0400 Body mass index (BMI) [Ratio] 31.5 kg/m2 Dr. Reema Myers Work Phone: [facility] Work Phone: 10-31-2021 14:54-0400 Body weight 108.[address] Reema Myers Work Phone: [facility] Work Phone: 10-31-2021 14:54-0400 Diastolic blood pressure 77 mm[Hg] Dr. Reema Myers Work Phone: [facility] Work Phone: 10-31-2021 14:54-0400 Heart rate 85 /min Dr. Reema Myers Work Phone: [facility] Work Phone: 10-31-2021 14:54-0400 Respiratory rate 18 /min Dr. Reema Myers Work Phone: [facility] Work Phone: 10-31-2021 14:54-0400 SaO2% (BldA) [Mass fraction] 95 % Dr. Reema Myers Work Phone: [facility] Work Phone: 10-31-2021 14:54-0400 Systolic blood pressure 121 mm[Hg] Dr. Reema Myers Work Phone: [facility] Work Phone: 05-20-2015 10:55-0500 BMI (Body Mass Index) 32.34 kg/m2 Olga Spears [facility] Internal Medicine Work Phone: 05-20-2015 10:55-0500 Body Temperature 97.6 [degF] Olga Spears [facility] Internal Medicine Work Phone: Comment on above: Method: Oral 05-20-2015 10:55-0500 Body weight 104.44 kg Olga Spears [facility] Internal Medicine Work Phone: 05-20-2015 10:55-0500 BP Diastolic 70 mm[Hg] Olga Spears [facility] Medicine Work Phone: Comment on above: Patient Position: Sitting; Cuff Location : Left Arm; Cuff Size: Large 05-20-2015 10:55-0500 BP Systolic 115 mm[Hg] Olga Spears [facility] Internal Medicine Work Phone: Comment on above: Patient Position: Sitting; Cuff Location : Left Arm; Cuff Size: Large 05-20-2015 10:55-0500 BSA (Body Surface Area) 2.23 m2 Olga Spears [facility] Internal Medicine Work Phone: 05-20-2015 10:55-0500 Height 179.71 cm Olga Spears [facility] Medicine Work Phone: 05-20-2015 10:55-0500 Pulse (Heart Rate) 57 /min Olga Spears [facility] Medicine Work Phone: Comment on above: Pattern: Regular 05-20-2015 10:55-0500 Pulse Oximetry 96 % Olga Spears [facility] Medicine Work Phone: Comment on above: Room air 05-20-2015 10:55-0500 Respiratory Rate 18 /min Olga Spears [facility] Medicine Work Phone: Comment on above: Pattern: Unlabored 01-16-2015 15:15-0400 BMI (Body Mass Index) 33.18 kg/m2 Olga Spears [facility] Work Phone: 01-16-2015 15:15-0400 Body Temperature 97.9 [degF] Olga Spears [facility] Work Phone: Comment on above: Method: Temporal 01-16-2015 15:15-0400 Body weight 107.16 kg Olga Spears [facility] Work Phone: 01-16-2015 15:15-0400 BP Diastolic 62 mm[Hg] Olga Spears [facility] Work Phone: Comment on above: Patient Position: Sitting; Cuff Location : Left Arm; Cuff Size: Standard 01-16-2015 15:15-0400 BP Systolic 132 mm[Hg] Olga Spears [facility] Work Phone: Comment on above: Patient Position: Sitting; Cuff Location : Left Arm; Cuff Size: Standard 01-16-2015 15:15-0400 BSA (Body Surface Area) 2.26 m2 Olga Spears [facility] Work Phone: 01-16-2015 15:15-0400 Height 179.71 cm Olga Spears [facility] Work Phone: 01-16-2015 15:15-0400 Pulse (Heart Rate) 65 /min Olga Spears [facility] Work Phone: Comment on above: Pattern: Regular 01-16-2015 15:15-0400 Pulse Oximetry 96 % Olga Spears [facility] Work Phone: Comment on above: Room air 01-16-2015 15:15-0400 Respiratory Rate 18 /min Olga Spears [facility] Work Phone: Comment on above: Pattern: Unlabored 07-18-2014 12:04-0500 BMI (Body Mass Index) 33.34 kg/m2 Olga Spears [facility] Work Phone: Comment on above: hearing impairedhas an eye doc but don't know the name DR. Carr 07-18-2014 12:04-0500 Body Temperature 97.3 [degF] Olga Spears [facility] Work Phone: Comment on above: Method: Oral hearing impairedhas an eye doc but don't know the name DR. Carr 07-18-2014 12:04-0500 Body weight 107.67 kg Olga Spears [facility] Work Phone: Comment on above: hearing impairedhas an eye doc but don't know the name DR. Carr 07-18-2014 12:04-0500 BP Diastolic 72 mm[Hg] Olga Spears [facility] Work Phone: Comment on above: Patient Position: Sitting; Cuff Location : Left Arm; Cuff Size: Large hearing impairedhas an eye doc but don't know the name DR. Carr 07-18-2014 12:04-0500 BP Systolic 110 mm[Hg] Olga Perezon [facility] Internal Medicine Work Phone: Comment on above: Patient Position: Sitting; Cuff Location : Left Arm; Cuff Size: Large hearing impairedhas an eye doc but don't know the name DR. Carr 07-18-2014 12:04-0500 BSA (Body Surface Area) 2.26 m2 Olga Perezon [facility] Medicine Work Phone: Comment on above: hearing impairedhas an eye doc but don't know the name DR. Carr 07-18-2014 12:04-0500 Height 179.71 cm Olga Perezon [facility] Work Phone: Comment on above: hearing impairedhas an eye doc but don't know the name DR. Carr 07-18-2014 12:04-0500 Pulse (Heart Rate) 50 /min Olga Tory [facility] Medicine Work Phone: Comment on above: Pattern: Regular hearing impairedhas an eye doc but don't know the name DR. Carr 07-18-2014 12:04-0500 Pulse Oximetry 97 % Olga Tory [facility] Medicine Work Phone: Comment on above: Room air hearing impairedhas an eye doc but don't know the name DR. Carr 07-18-2014 12:04-0500 Respiratory Rate 18 /min Olga Tory [facility] Medicine Work Phone: Comment on above: Pattern: Unlabored hearing impairedhas an eye doc but don't know the name DR. Carr 04-07-2013 [id number] BMI (Body Mass Index) 32.31 kg/m2 Olga Tory [facility] Work Phone: 04-07-2013 [id number] Body weight 104.33 kg Olga Spears [facility] Work Phone: 04-07-2013 10:31-0400 BP Diastolic 82 mm[Hg] Olga Spears [facility] Work Phone: Comment on above: Patient Position: Sitting; Cuff Location : Left Arm; Cuff Size: Large 04-07-2013 10:31-0400 BP Systolic 120 mm[Hg] Olga Spears [facility] Work Phone: Comment on above: Patient Position: Sitting; Cuff Location : Left Arm; Cuff Size: Large 04-07-2013 10:31-0400 BSA (Body Surface Area) 2.23 m2 Olga Spears [facility] Work Phone: 04-07-2013 10:31-0400 Height 179.71 cm Olga Spears [facility] Work Phone: 04-07-2013 10:31-0400 Pulse (Heart Rate) 53 /min Olga Spears [facility] Work Phone: Comment on above: Pattern: Regular 04-07-2013 10:31-0400 Pulse Oximetry 95 % Olga Spears [facility] Work Phone: Comment on above: Room air 04-07-2013 10:31-0400 Respiratory Rate 18 /min Olga Spears [facility] Work Phone: Comment on above: Pattern: Unlabored 10-04-2012 09:34-0400 BMI (Body Mass Index) 32.75 kg/m2 Olga Spears [facility] Medicine Work Phone: 10-04-2012 09:34-0400 Body Temperature 97.8 [degF] Olga Spears [facility] Internal Medicine Work Phone: Comment on above: Method: Oral 10-04-2012 09:34-0400 Body weight 105.77 kg Olga Spears [facility] Internal Medicine Work Phone: 10-04-2012 09:34-0400 BP Diastolic 62 mm[Hg] Olga Spears [facility] Internal Medicine Work Phone: Comment on above: Patient Position: Sitting; Cuff Location : Left Arm; Cuff Size: Large 10-04-2012 09:34-0400 BP Systolic 122 mm[Hg] Olga Spears [facility] Internal Medicine Work Phone: Comment on above: Patient Position: Sitting; Cuff Location : Left Arm; Cuff Size: Large 10-04-2012 09:34-0400 BSA (Body Surface Area) 2.25 m2 Olga Spears [facility] Internal Medicine Work Phone: 10-04-2012 09:34-0400 Height 179.71 cm [facility] Work Phone: 10-04-2012 09:34-0400 Pulse (Heart Rate) 64 /min Olga Spears [facility] Internal Medicine Work Phone: Comment on above: Pattern: Regular 10-04-2012 09:34-0400 Respiratory Rate 20 /min Olga Spears [facility] Internal Medicine Work Phone: Comment on above: Pattern: Unlabored 02-05-2012 09:52-0400 BMI (Body Mass Index) 31.6 kg/m2 Olga Spears [facility] Internal Medicine Work Phone: 02-05-2012 09:52-0400 Body weight 102.06 kg Olga Spears [facility] Internal Medicine Work Phone: 02-05-2012 09:52-0400 BP Diastolic 78 mm[Hg] Olga Spears [facility] Internal Medicine Work Phone: Comment on above: Patient Position: Sitting; Cuff Location : Left Arm; Cuff Size: Large 02-05-2012 09:52-0400 BP Systolic 110 mm[Hg] Olga Spears [facility] Internal Medicine Work Phone: Comment on above: Patient Position: Sitting; Cuff Location : Left Arm; Cuff Size: Large 02-05-2012 09:52-0400 BSA (Body Surface Area) 2.21 m2 Olga Spears [facility] Internal Medicine Work Phone: 02-05-2012 09:52-0400 Height 179.71 cm Olga Spears [facility] Internal Medicine Work Phone: 02-05-2012 09:52-0400 Pulse (Heart Rate) 60 /min Olga Spears [facility] Internal Medicine Work Phone: Comment on above: Pattern: Regular 02-05-2012 09:52-0400 Respiratory Rate 16 /min Olga Spears [facility] Internal Medicine Work Phone: Comment on above: Pattern: Unlabored 06-12-2011 11:11-0500 BMI (Body Mass Index) 31.68 kg/m2 Olga Spears [facility] Internal Medicine Work Phone: 06-12-2011 11:11-0500 Body Temperature 97.9 [degF] Olga Spears [facility] Internal Medicine Work Phone: Comment on above: Method: Oral 06-12-2011 11:11-0500 Body weight 102.32 kg Olga Spears [facility] Internal Medicine Work Phone: 06-12-2011 11:11-0500 BP Diastolic 80 mm[Hg] Olga Spears [facility] Internal Medicine Work Phone: Comment on above: Patient Position: Sitting; Cuff Location : Left Arm; Cuff Size: Large 06-12-2011 11:11-0500 BP Systolic 124 mm[Hg] Olga Spears [facility] Internal Medicine Work Phone: Comment on above: Patient Position: Sitting; Cuff Location : Left Arm; Cuff Size: Large 06-12-2011 11:11-0500 BSA (Body Surface Area) 2.21 m2 Olga Spears [facility] Internal Medicine Work Phone: 06-12-2011 11:11-0500 Height 179.71 cm Olga Spears [facility] Internal Medicine Work Phone: 06-12-2011 11:11-0500 Pulse (Heart Rate) 72 /min Olga Spears [facility] Internal Medicine Work Phone: Comment on above: Pattern: Regular 06-12-2011 11:11-0500 Respiratory Rate 20 /min Olga Spears [facility] Internal Medicine Work Phone: Comment on above: Pattern: Unlabored 06-01-2011 13:40-0500 BMI (Body Mass Index) 32.16 kg/m2 Olga [facility] Internal Medicine Work Phone: 06-01-2011 13:40-0500 Body Temperature 98.4 [degF] Olga Spears [facility] Internal Medicine Work Phone: Comment on above: Method: Oral 06-01-2011 13:40-0500 Body weight 103.87 kg Olga Spears [facility] Internal Medicine Work Phone: 06-01-2011 13:40-0500 BP Diastolic 76 mm[Hg] Olga Spears [facility] Internal Medicine Work Phone: Comment on above: Patient Position: Sitting; Cuff Location : Left Arm; Cuff Size: Standard 06-01-2011 13:40-0500 BP Systolic 116 mm[Hg] Olga Spears [facility] Internal Medicine Work Phone: Comment on above: Patient Position: Sitting; Cuff Location : Left Arm; Cuff Size: Standard 06-01-2011 13:40-0500 BSA (Body Surface Area) 2.23 m2 Olga Spears [facility] Internal Medicine Work Phone: 06-01-2011 13:40-0500 Height 179.71 cm Olga Spears [facility] Internal Medicine Work Phone: 06-01-2011 13:40-0500 Pulse (Heart Rate) 62 /min Olga Spears [facility] Internal Medicine Work Phone: Comment on above: Pattern: Regular 06-01-2011 13:40-0500 Pulse Oximetry 95 % lOga Spears [facility] Internal Medicine Work Phone: Comment on above: Room air 06-01-2011 13:40-0500 Respiratory Rate 17 /min Olga Spears [facility] Internal Medicine Work Phone: 10-27-2010 13:45-0400 BMI (Body Mass Index) 32.16 kg/m2 Olga Gardner [facility] Internal Medicine Work Phone: 10-27-2010 13:45-0400 Body Temperature 96.5 [degF] Olga Spears [facility] Internal Medicine Work Phone: 10-27-2010 13:45-0400 Body weight 103.87 kg Olga Spears [facility] Internal Medicine Work Phone: 10-27-2010 13:45-0400 BP Diastolic 78 mm[Hg] Olga Spears [facility] Internal Medicine Work Phone: Comment on above: Patient Position: Sitting; Cuff Location : Left Arm; Cuff Size: Large 10-27-2010 13:45-0400 BP Systolic 120 mm[Hg] Olga Spears [facility] Internal Medicine Work Phone: Comment on above: Patient Position: Sitting; Cuff Location : Left Arm; Cuff Size: Large 10-27-2010 13:45-0400 BSA (Body Surface Area) 2.23 m2 Olga Spears [facility] Internal Medicine Work Phone: 10-27-2010 13:45-0400 Height 179.71 cm Olga Spears [facility] Internal Medicine Work Phone: 10-27-2010 13:45-0400 Pulse (Heart Rate) 68 /min Olga Spears [facility] Internal Medicine Work Phone: Comment on above: Pattern: Regular 10-27-2010 13:45-0400 Pulse Oximetry 94 % Olga Spears [facility] Internal Medicine Work Phone: Comment on above: Room air 10-27-2010 13:45-0400 Respiratory Rate 20 /min Olga Spears [facility] Internal Medicine Work Phone: Comment on above: Pattern: Unlabored 08-28-2010 09:21-0500 BMI (Body Mass Index) 29.72 kg/m2 Olga Spears [facility] Internal Medicine Work Phone: 08-28-2010 09:21-0500 Body Temperature 97.2 [degF] Olga Spears [facility] Internal Medicine Work Phone: Comment on above: Method: Oral 08-28-2010 09:21-0500 Body weight 102.17 kg Olga Spears [facility] Internal Medicine Work Phone: 08-28-2010 09:21-0500 BP Diastolic 78 mm[Hg] Olga Spears [facility] Internal Medicine Work Phone: Comment on above: Patient Position: Sitting; Cuff Location : Left Arm; Cuff Size: Large 08-28-2010 09:21-0500 BP Systolic 122 mm[Hg] Olga Spears [facility] Internal Medicine Work Phone: Comment on above: Patient Position: Sitting; Cuff Location : Left Arm; Cuff Size: Large 08-28-2010 09:21-0500 BSA (Body Surface Area) 2.26 m2 Olga Spears [facility] Internal Medicine Work Phone: 08-28-2010 09:21-0500 Height 185.42 cm Olga Spears [facility] Internal Medicine Work Phone: 08-28-2010 09:21-0500 Pulse (Heart Rate) 60 /min Olga Spears [facility] Internal Medicine Work Phone: Comment on above: Pattern: Regular 08-28-2010 09:21-0500 Respiratory Rate 18 /min Olga Spears [facility] Internal Medicine Work Phone: Comment on above: Pattern: Unlabored 04-25-2010 11:07-0400 Body Temperature 97.3 [degF] Olga Spears [facility] Internal Medicine Work Phone: Comment on above: Method: Oral 04-25-2010 11:07-0400 Body weight 100.25 kg Olga Spears [facility] Internal Medicine Work Phone: 04-25-2010 11:07-0400 BP Diastolic 82 mm[Hg] Olga Spears [facility] Internal Medicine Work Phone: Comment on above: Patient Position: Sitting; Cuff Location : Left Arm; Cuff Size: Standard 04-25-2010 11:07-0400 BP Systolic 126 mm[Hg] Olga Spears [facility] Internal Medicine Work Phone: Comment on above: Patient Position: Sitting; Cuff Location : Left Arm; Cuff Size: Standard 04-25-2010 11:07-0400 Pulse (Heart Rate) 60 /min Olga Spears [facility] Internal Medicine Work Phone: Comment on above: Pattern: Regular 04-25-2010 11:07-0400 Respiratory Rate 16 /min Olga Spears [facility] Internal Medicine Work Phone: Comment on above: Pattern: Unlabored 01-10-2010 10:37-0400 BMI (Body Mass Index) 29.58 kg/m2 Olga [facility] Internal Medicine Work Phone: 01-10-2010 10:37-0400 Body weight 101.69 kg Olga Spears [facility] Internal Medicine Work Phone: 01-10-2010 10:37-0400 BP Diastolic 72 mm[Hg] Olga Spears [facility] Internal Medicine Work Phone: Comment on above: Patient Position: Sitting; Cuff Location : Left Arm; Cuff Size: Large 01-10-2010 10:37-0400 BP Systolic 128 mm[Hg] Olga Spears [facility] Internal Medicine Work Phone: Comment on above: Patient Position: Sitting; Cuff Location : Left Arm; Cuff Size: Large 01-10-2010 10:37-0400 BSA (Body Surface Area) 2.26 m2 Olga Spears [facility] Internal Medicine Work Phone: 01-10-2010 10:37-0400 Height 185.42 cm Olga Spears [facility] Internal Medicine Work Phone: 01-10-2010 10:37-0400 Pulse (Heart Rate) 64 /min Olga Spears [facility] Internal Medicine Work Phone: Comment on above: Pattern: Regular 01-10-2010 10:37-0400 Respiratory Rate 20 /min Olga Spears [facility] Internal Medicine Work Phone: Comment on above: Pattern: Unlabored 10-25-2009 09:57-0400 BMI (Body Mass Index) 29.5 kg/m2 Olga [facility] Internal Medicine Work Phone: 10-25-2009 09:57-0400 Body weight 101.41 kg Olga Spears [facility] Internal Medicine Work Phone: 10-25-2009 09:57-0400 BP Diastolic 82 mm[Hg] Olga Spears [facility] Internal Medicine Work Phone: Comment on above: Patient Position: Sitting; Cuff Location : Left Arm; Cuff Size: Large 10-25-2009 09:57-0400 BP Systolic 122 mm[Hg] Olga Spears [facility] Internal Medicine Work Phone: Comment on above: Patient Position: Sitting; Cuff Location : Left Arm; Cuff Size: Large 10-25-2009 09:57-0400 BSA (Body Surface Area) 2.26 m2 Olga Spears [facility] Internal Medicine Work Phone: 10-25-2009 09:57-0400 Height 185.42 cm Olga Spears [facility] Internal Medicine Work Phone: 10-25-2009 09:57-0400 Pulse (Heart Rate) 60 /min Olga Spears [facility] Internal Medicine Work Phone: Comment on above: Pattern: Regular 10-25-2009 09:57-0400 Respiratory Rate 20 /min Olga Spears [facility] Internal Medicine Work Phone: Comment on above: Pattern: Unlabored 04-25-2009 10:36-0400 BMI (Body Mass Index) 30.09 kg/m2 Olga Spears [facility] Internal Medicine Work Phone: 04-25-2009 10:36-0400 Body weight 103.45 kg Olga Spears [facility] Internal Medicine Work Phone: 04-25-2009 10:36-0400 BP Diastolic 82 mm[Hg] Olga Spears [facility] Internal Medicine Work Phone: Comment on above: Patient Position: Sitting; Cuff Location : Left Arm; Cuff Size: Standard 04-25-2009 10:36-0400 BP Systolic 128 mm[Hg] [facility] Work Phone: Comment on above: Patient Position: Sitting; Cuff Location : Left Arm; Cuff Size: Standard 04-25-2009 10:36-0400 BSA (Body Surface Area) 2.28 m2 Olga Spears [facility] Internal Medicine Work Phone: 04-25-2009 10:36-0400 Head Circumference 0 cm [facility] Work Phone: 04-25-2009 10:36-0400 Height 185.42 cm Olga Spears [facility] Internal Medicine Work Phone: 04-25-2009 10:36-0400 Pulse (Heart Rate) 60 /min Olga Spears [facility] Internal Medicine Work Phone: Comment on above: Pattern: Regular 04-25-2009 10:36-0400 Respiratory Rate 18 /min Olga Spears [facility] Internal Medicine Work Phone: Comment on above: Pattern: Unlabored 03-01-2009 10:56-0400 BMI (Body Mass Index) 29.27 kg/m2 Olga Spears [facility] Internal Medicine Work Phone: 03-01-2009 10:56-0400 Body weight 99.96 kg Olga Spears [facility] Internal Medicine Work Phone: 03-01-2009 10:56-0400 BP Diastolic 84 mm[Hg] Olga Spears [facility] Internal Medicine Work Phone: Comment on above: Patient Position: Sitting; Cuff Location : Left Arm; Cuff Size: Large 03-01-2009 10:56-0400 BP Systolic 118 mm[Hg] Olga Spears [facility] Internal Medicine Work Phone: Comment on above: Patient Position: Sitting; Cuff Location : Left Arm; Cuff Size: Large 03-01-2009 10:56-0400 BSA (Body Surface Area) 2.24 m2 Olga Spears [facility] Internal Medicine Work Phone: 03-01-2009 10:56-0400 Head Circumference 0 cm Olga Spears [facility] Internal Medicine Work Phone: 03-01-2009 10:56-0400 Height 184.78 cm Olga Spears [facility] Internal Medicine Work Phone: 03-01-2009 10:56-0400 Pulse (Heart Rate) 64 /min Olga Spears [facility] Internal Medicine Work Phone: Comment on above: Pattern: Regular 03-01-2009 10:56-0400 Respiratory Rate 20 /min Olga Spears [facility] Internal Medicine Work Phone: Comment on above: Pattern: Unlabored 02-22-2009 11:02-0400 BMI (Body Mass Index) 29.27 kg/m2 Olga Spears [facility] Internal Medicine Work Phone: 02-22-2009 11:02-0400 Body weight 99.96 kg Olga Spears [facility] Internal Medicine Work Phone: 02-22-2009 11:02-0400 BP Diastolic 80 mm[Hg] Olga Spears [facility] Internal Medicine Work Phone: Comment on above: Patient Position: Sitting; Cuff Location : Left Arm; Cuff Size: Large 02-22-2009 11:02-0400 BP Systolic 128 mm[Hg] Olga Spears [facility] Internal Medicine Work Phone: Comment on above: Patient Position: Sitting; Cuff Location : Left Arm; Cuff Size: Large 02-22-2009 11:02-0400 BSA (Body Surface Area) 2.24 m2 Olga Spears [facility] Internal Medicine Work Phone: 02-22-2009 11:02-0400 Head Circumference 0 cm Olga Spears [facility] Internal Medicine Work Phone: 02-22-2009 11:02-0400 Height 184.78 cm Olga Spears [facility] Internal Medicine Work Phone: 02-22-2009 11:02-0400 Pulse (Heart Rate) 72 /min Olga Spears [facility] Internal Medicine Work Phone: Comment on above: Pattern: Regular 02-22-2009 11:02-0400 Respiratory Rate 20 /min Olga Spears [facility] Internal Medicine Work Phone: Comment on above: Pattern: Unlabored 02-18-2009 12:09-0400 Body weight 100.25 kg Olga Spears [facility] Internal Medicine Work Phone: 02-18-2009 12:09-0400 BP Diastolic 86 mm[Hg] Olga Spears [facility] Internal Medicine Work Phone: Comment [...] 09:14-0400 Body weight 0 kg Olga Spears [facility] Internal Medicine Work Phone: 01-04-2009 09:14-0400 BP Diastolic 84 mm[Hg] Olga Spears [facility] Internal Medicine Work Phone: Comment on above: Patient Position: Standing; Cuff Locatio n: Left Arm; Cuff Size: Standard 01-04-2009 09:14-0400 BP Systolic 110 mm[Hg] Olga Spears [facility] Internal Medicine Work Phone: Comment on above: Patient Position: Standing; Cuff Locatio n: Left Arm; Cuff Size: Standard 01-04-2009 09:14-0400 Head Circumference 0 cm [facility] Work Phone: 01-04-2009 09:14-0400 Height 0 cm [facility] Work Phone: 01-04-2009 09:14-0400 Pulse (Heart Rate) 74 /min Olga Spears [facility] Internal Medicine Work Phone: Comment on above: Pattern: Regular 01-04-2009 09:13-0400 Body weight 0 kg Olga Spears [facility] Internal Medicine Work Phone: 01-04-2009 09:13-0400 BP Diastolic 100 mm[Hg] [facility] Work Phone: Comment on above: Patient Position: Supine; Cuff Location: Left Arm; Cuff Size: Standard Patient Position: Si tting; Cuff Location: Left Arm; Cuff Size: Standard 01-04-2009 09:13-0400 BP Systolic 134 mm[Hg] [facility] Work Phone: Comment on above: Patient Position: Supine; Cuff Location: Left Arm; Cuff Size: Standard 01-04-2009 09:13-0400 BP Systolic 140 mm[Hg] [facility] Work Phone: Comment on above: Patient Position: Sitting; Cuff Location : Left Arm; Cuff Size: Standard 01-04-2009 09:13-0400 Head Circumference 0 cm Olga Spears [facility] Internal Medicine Work Phone: 01-04-2009 09:13-0400 Height 0 cm Olga Spears [facility] Internal Medicine Work Phone: 01-04-2009 09:13-0400 Pulse (Heart Rate) 64 /min Olga Spears [facility] Internal Medicine Work Phone: Comment on above: Pattern: Regular 01-04-2009 09:13-0400 Pulse (Heart Rate) 66 /min Olga Spears [facility] Internal Medicine Work Phone: Comment on above: Pattern: Regular 01-04-2009 09:13-0400 Respiratory Rate 16 /min Olga Spears [facility] Internal Medicine Work Phone: Comment on above: Pattern: Unlabored 07-02-2008 15:59-0500 BMI (Body Mass Index) 29.27 kg/m2 Olga Spears [facility] Internal Medicine Work Phone: 07-02-2008 15:59-0500 Body Temperature 96.9 [degF] Olga Spears [facility] Internal Medicine Work Phone: Comment on above: Method: Oral 07-02-2008 15:59-0500 Body weight 99.96 kg Olga Spears [facility] Internal Medicine Work Phone: 07-02-2008 15:59-0500 BP Diastolic 78 mm[Hg] [facility] Work Phone: Comment on above: Patient Position: Sitting; Cuff Location : Left Arm; Cuff Size: Large 07-02-2008 15:59-0500 BP Systolic 128 mm[Hg] Olga Spears [facility] Internal Medicine Work Phone: Comment on above: Patient Position: Sitting; Cuff Location : Left Arm; Cuff Size: Large 07-02-2008 15:59-0500 BSA (Body Surface Area) 2.24 m2 Olga Spears [facility] Internal Medicine Work Phone: 07-02-2008 15:59-0500 Head Circumference 0 cm [facility] Work Phone: 07-02-2008 15:59-0500 Height 184.78 cm Olga Spears [facility] Internal Medicine Work Phone: 07-02-2008 15:59-0500 Pulse (Heart Rate) 64 /min Olga Spears [facility] Internal Medicine Work Phone: Comment on above: Pattern: Regular 07-02-2008 15:59-0500 Respiratory Rate 20 /min Olga Spears [facility] Internal Medicine Work Phone: Comment on above: Pattern: Unlabored 09-23-2007 13:21-0400 BMI (Body Mass Index) 29.27 kg/m2 Olga Spears [facility] Internal Medicine Work Phone: 09-23-2007 13:21-0400 Body weight 99.96 kg Olga Spears [facility] Internal Medicine Work Phone: 09-23-2007 13:21-0400 BP Diastolic 82 mm[Hg] Olga Spears [facility] Internal Medicine Work Phone: Comment on above: Patient Position: Sitting; Cuff Location : Right Arm; Cuff Size: Large 09-23-2007 13:21-0400 BP Systolic 128 mm[Hg] [facility] Work Phone: Comment on above: Patient Position: Sitting; Cuff Location : Right Arm; Cuff Size: Large 09-23-2007 13:21-0400 BSA (Body Surface Area) 2.24 m2 Olga Spears [facility] Internal Medicine Work Phone: 09-23-2007 13:21-0400 Head Circumference 0 cm Olga Spears [facility] Internal Medicine Work Phone: 09-23-2007 13:21-0400 Height 184.78 cm Olga Spears [facility] Internal Medicine Work Phone: 09-23-2007 13:21-0400 Pulse (Heart Rate) 72 /min Olga Spears [facility] Internal Medicine Work Phone: Comment on above: Pattern: Regular 09-23-2007 13:21-0400 Respiratory Rate 16 /min Olga Spears [facility] Internal Medicine Work Phone: Comment on above: Pattern: Unlabored 09-05-2007 17:14-0400 BMI (Body Mass Index) 29.09 kg/m2 Olga Gardner [facility] Internal Medicine Work Phone: 09-05-2007 17:14-0400 Body Temperature 99.2 [degF] Olga Spears [facility] Internal Medicine Work Phone: Comment on above: Method: Oral 09-05-2007 17:14-0400 Body weight 99.34 kg Olga Spears [facility] Internal Medicine Work Phone: 09-05-2007 17:14-0400 BP Diastolic 76 mm[Hg] Olga Spears [facility] Internal Medicine Work Phone: Comment on above: Patient Position: Sitting; Cuff Location : Left Arm; Cuff Size: Standard 09-05-2007 17:14-0400 BP Systolic 122 mm[Hg] Olga Spears [facility] Internal Medicine Work Phone: Comment on above: Patient Position: Sitting; Cuff Location : Left Arm; Cuff Size: Standard 09-05-2007 17:14-0400 BSA (Body Surface Area) 2.23 m2 Olga Spears [facility] Internal Medicine Work Phone: 09-05-2007 17:14-0400 Head Circumference 0 cm Olga Spears [facility] Internal Medicine Work Phone: 09-05-2007 17:14-0400 Height 184.78 cm Olga Spears [facility] Internal Medicine Work Phone: 09-05-2007 17:14-0400 Pulse (Heart Rate) 72 /min Olga Spears [facility] Internal Medicine Work Phone: Comment on above: Pattern: Regular 09-05-2007 17:14-0400 Respiratory Rate 20 /min Olga Spears [facility] Internal Medicine Work Phone: Comment on above: Pattern: Unlabored 11-29-2006 14:39-0400 BMI (Body Mass Index) 29.09 kg/m2 [facility] Work Phone: 11-29-2006 14:39-0400 Body Temperature 97.9 [degF] Olga Spears [facility] Internal Medicine Work Phone: Comment on above: Method: Oral 11-29-2006 14:39-0400 Body weight 99.34 kg Olga Spears [facility] Internal Medicine Work Phone: 11-29-2006 14:39-0400 BP Diastolic 82 mm[Hg] Olga Spears [facility] Internal Medicine Work Phone: Comment on above: Patient Position: Sitting; Cuff Location : Left Arm; Cuff Size: Standard 11-29-2006 14:39-0400 BP Systolic 124 mm[Hg] Olga Spears [facility] Internal Medicine Work Phone: Comment on above: Patient Position: Sitting; Cuff Location : Left Arm; Cuff Size: Standard 11-29-2006 14:39-0400 BSA (Body Surface Area) 2.23 m2 Olga Spears [facility] Internal Medicine Work Phone: 11-29-2006 14:39-0400 Head Circumference 0 cm Olga Spears [facility] Internal Medicine Work Phone: 11-29-2006 14:39-0400 Height 184.78 cm Olga Spears [facility] Internal Medicine Work Phone: 11-29-2006 14:39-0400 Pulse (Heart Rate) 88 /min Olga Spears [facility] Internal Medicine Work Phone: Comment on above: Pattern: Regular 11-29-2006 14:39-0400 Respiratory Rate 20 /min Olga Spears [facility] Internal Medicine Work Phone: Comment on above: Pattern: Unlabored 10-29-2006 12:04-0400 BMI (Body Mass Index) 29.76 kg/m2 Olga Spears [facility] Internal Medicine Work Phone: 10-29-2006 12:04-0400 Body Temperature 97.9 [degF] Olga Spears [facility] Internal Medicine Work Phone: Comment on above: Method: Oral 10-29-2006 12:04-0400 Body weight 101.61 kg Olga Roberts Internal Medicine Work Phone: 10-29-2006 12:04-0400 BP Diastolic 86 mm[Hg] [facility] Internal Medicine Work Phone: Comment on above: Patient Position: Sitting; Cuff Location : Left Arm; Cuff Size: Standard 10-29-2006 12:04-0400 BP Systolic 160 mm[Hg] Olga Spears [facility] Internal Medicine Work Phone: Comment on above: Patient Position: Sitting; Cuff Location : Left Arm; Cuff Size: Standard 10-29-2006 12:04-0400 BSA (Body Surface Area) 2.25 m2 Olga Spears [facility] Internal Medicine Work Phone: 10-29-2006 12:04-0400 Head Circumference 0 cm Olga Spears [facility] Internal Medicine Work Phone: 10-29-2006 12:04-0400 Height 184.78 cm Olga Spears [facility] Internal Medicine Work Phone: 10-29-2006 12:04-0400 Pulse (Heart Rate) 68 /min Olga Spears [facility] Internal Medicine Work Phone: Comment on above: Pattern: Regular 10-29-2006 12:04-0400 Respiratory Rate 16 /min Olga Spears [facility] Internal Medicine Work Phone: Comment on above: Pattern: Unlabored 04-23-2006 13:12-0400 Body Temperature 98.7 [degF] Olga Spears [facility] Internal Medicine Work Phone: Comment on above: Method: Undefined 04-23-2006 13:12-0400 Body weight 99.54 kg Olga Spears [facility] Internal Medicine Work Phone: 04-23-2006 13:12-0400 BP Diastolic 82 mm[Hg] Olga Spears [facility] Internal Medicine Work Phone: Comment on above: Patient Position: Sitting; Cuff Location : Right Arm; Cuff Size: Standard 04-23-2006 13:12-0400 BP Systolic 118 mm[Hg] Olga Spears [facility] Internal Medicine Work Phone: Comment on above: Patient Position: Sitting; Cuff Location : Right Arm; Cuff Size: Standard 04-23-2006 13:120400 Head Circumference 0 cm [facility] Work Phone: 04-23-2006 13:120400 Height 0 cm Olga Spears [facility] Internal Medicine Work Phone: 04-23-2006 13:12-0400 Pulse (Heart Rate) 72 /min [facility] Work Phone: Comment on above: Pattern: Regular 04-23-2006 13:12-0400 Respiratory Rate 16 /min Olga Spears [facility] Internal Medicine Work Phone: Comment on above: Pattern: Undefined Encounters Encounter Date Encounter Type Care Provider Facility Start: 01-04-2025 End: 01-04-[address] Reema Myers MD Work Phone: -Sleep Lab Start: 01-04-2025 End: 01-04-2025 Patient encounter procedure LIUDMILA Sesay -Sleep Lab Work Phone: Start: 01-04-2025 End: 01-04-2025 ambulatory [facility] Facility:[facility] Start: 12-26-2024 ambulatory [facility]: [facility] Start: 12-26-2024 Non-patient / Non-visit Dr. Matthew Dodd MD -[facility] Start: 12-25-2024 End: 12-25-[address] Reema Myers MD Work Phone: -Cardiovascular Services Start: 12-25-2024 End: 12-25-2024 Patient encounter procedure Rick TOWNSEND -Cardiovascular Services Work Phone: Start: 12-25-2024 End: 12-25-2024 ambulatory [facility] Facility:[facility] Start: 12-25-2024 Non-patient / Non-visit Dr. Matthew Dodd MD -[facility] Start: 12-13-2024 End: 12-13-2024 Patient encounter procedure LIUDMILA Sesay -[facility] Work Phone: Start: 12-13-2024 End: 12-13-[address] Reema Myers MD Work Phone: [facility] Work Phone: Start: 10-23-2024 End: 10-23-2024 Patient encounter procedure Jacqueline Sullivan CLINICAL BIOSTATISTICIAN-C -Cat Scan [facility] Work Phone: Start: 10-23-2024 End: 10-23-2024 ambulatory [facility] Facility:[facility] Start: 09-26-2024 End: 09-26-2024 Emergency department patient visit [facility] Start: 08-30-[address] Gloria Coleman MD -[facility] Start: 08-30-2024 End: 08-30-[address] Tamie Coleman MD -[facility] Work Phone: Start: 08-30-2024 End: 08-30-2024 ambulatory [facility] Facility:[facility] Start: 08-16-2024 End: 08-16-2024 Patient encounter procedure Buck Larsen PA -Laboratory Work Phone: Start: 08-16-2024 End: 08-16-2024 ambulatory [facility] Facility:[facility] Start: 08-09-2024 End: 08-09-2024 [facility] Start: 07-10-2024 ambulatory [facility]: [facility] Start: 06-15-2024 End: 06-15-2024 ambulatory [facility] Facility:[facility] Start: 06-06-2024 End: 06-06-[facility] Start: 05-18-2024 End: 05-18-2024 [facility] Start: 05-08-2024 End: 05-08-2024 [facility]ulatory [facility] Start: 04-13-2024 ambulatory [facility] Facility: [facility] Start: 04-12-2024 End: 04-12-2024 ambulatory Reema Miedel Facility:[facility] Start: 04-10-2024 End: 04-10-2024 ambulatory Reema Miedel [facility] Start: 04-04-2024 End: 04-04-2024 ambulatory Reema Miel Facility:[facility] Start: 03-02-2024 End: 03-02-2024 ambulatory Reema Miedel [facility] Start: 02-10-2024 End: 02-10-2024 ambulatory Reema Miedel [facility] Start: 02-02-2024 End: 02-02-2024 ambulatory Reema Miedel [facility] Start: 01-24-2024 End: 01-24-2024 ambulatory Reema Miedel Facility:[facility] Start: 11-06-2023 Non-patient / Non-visit Dr. Reema Myers Work Phone: [facility] Inpatient Physicians Work Phone: Start: 11-05-2023 Non-patient / Non-visit Dr. Reema Myers Work Phone: [facility] Work Phone: Start: 11-05-2023 Non-patient / Non-visit Dr. Reema Myers Work Phone: [facility] Start: 11-04-2023 Non-patient / Non-visit Dr. Reema Myers Work Phone: [facility] Start: 11-04-2023 End: 11-06-2023 Evaluation and management of inpatient Dr. Reema Myers Work Phone: [facility]-Medical Surgical 3 Work Phone: Start: 11-01-2023 End: 11-01-[address] Reema Myers Work Phone: [facility] Work Phone: Start: 11-01-2023 End: 11-01-[address] Reema Myers Work Phone: [facility]-Sleep Lab Work Phone: Start: 10-21-2023 Non-patient / Non-visit Dr. Reema Myers Work Phone: [facility] Start: 10-21-2023 End: 10-21-[address] Reema Myers Work Phone: [facility] Work Phone: Start: 10-21-2023 End: 10-21-[address] [facility] Start: 10-20-2023 Non-patient / Non-visit Dr. Reema Myers Work Phone: [facility] Start: 10-20-2023 End: 10-20-2023 Admission to same day surgery center Dr. Reema Myers Work Phone: [facility]-Endoscopy Work Phone: Start: 10-20-2023 End: 10-20-[address] Reema Myers Work Phone: [facility] Work Phone: Start: 09-29-2023 End: 09-29-[address] Reema Myers Work Phone: [facility] Work Phone: Start: 09-27-2023 End: 09-27-[address] Reema Myers Work Phone: [facility] Work Phone: Start: 09-27-2023 End: 09-27-[address] Reema Myers Work Phone: [facility]-Sleep Lab Work Phone: Start: 09-17-2023 End: 09-17-[address] Reema Myers Work Phone: [facility] Work Phone: Start: 09-17-2023 End: 09-17-[address] Reema Myers Work Phone: [facility]-Cat Scan, [facility] Work Phone: Start: 09-13-2023 End: 09-13-[address] Reema Myers Work Phone: [facility] Work Phone: Start: 09-13-2023 End: 09-13-[address] Reema Myers Work Phone: [facility]-Laboratory, Specimen Work Phone: Start: 09-10-2023 End: 09-10-[address] Reema Myers Work Phone: [facility] Work Phone: Start: 09-10-2023 End: 09-10-[address] Reema Myers Work Phone: [facility]-Sleep Lab Work Phone: Start: 09-09-2023 End: 09-09-[address] Reema Myers Work Phone: [facility] Work Phone: Start: 09-09-2023 End: 09-09-[address] Reema Myers Work Phone: [facility]-Laboratory Work Phone: Start: 08-20-2023 End: 08-20-[address] Reema Myers Work Phone: [facility] Work Phone: Start: 08-20-2023 End: 08-20-[address] Reema Myers Work Phone: [facility]-Sleep Lab Work Phone: Start: 08-13-2023 End: 08-13-[address] [facility] Work Phone: Start: 07-09-2023 End: 07-09-[address] Reeam Myers Work Phone: [facility] Work Phone: Start: 07-09-2023 End: 07-09-[address] Reema Myers Work Phone: [facility]-Cat Scan, [facility] Work Phone: Start: 07-01-2023 End: 07-01-[address] [facility] Work Phone: Start: 06-30-2023 Non-patient / Non-visit Dr. Reema Myers Work Phone: [facility] Start: 06-29-2023 End: 06-29-[address] Reema Myers Work Phone: [facility] Work Phone: Start: 06-29-2023 End: 06-29-[address] Reema Myers Work Phone: [facility]-Pulmonary Services/Neurology Work Phone: Start: 06-27-2023 Non-patient / Non-visit Dr. Reema Myers Work Phone: [facility] Start: 06-25-2023 End: 06-25-[address] Reema Myers Work Phone: [facility] Work Phone: Start: 06-25-2023 End: 06-25-[address] Reema Myers Work Phone: [facility]-Pulmonary Services/Neurology Work Phone: Start: 06-24-2023 End: 06-24-[address] Reema Myers Work Phone: [facility] Work Phone: Start: 06-24-2023 End: 06-24-[address] Reema Myers Work Phone: [facility]-Radiology, [facility] Work Phone: Start: 02-04-2023 End: 02-04-[address] Reema Myers Work Phone: [facility] Work Phone: Start: 02-04-2023 End: 02-04-[address] Reema Myers Work Phone: [facility] Work Phone: Start: 02-02-2023 End: 02-02-[address] Reema Myers Work Phone: [facility]-Laboratory Work Phone: Start: 11-26-2022 End: 11-26-[address] Reema Myers Work Phone: [facility] Work Phone: Start: 05-27-2022 Non-patient / Non-visit Dr. Reema Myers Work Phone: [facility] Start: 05-27-2022 End: 05-27-2022 Admission to same day surgery center Dr. Reema Myers Work Phone: [facility]/Special Procedures Start: 05-27-2022 End: 05-27-[address] Reema Myers Work Phone: [facility] Work Phone: Start: 05-25-2022 Non-patient / Non-visit Dr. Reema Myers Work Phone: [facility] Start: 05-13-2022 End: 05-13-[address] Reema Myers Work Phone: [facility] Start: 05-06-2022 Non-patient / Non-visit Dr. Reema Myers Work Phone: [facility] Start: 05-06-2022 Non-patient / Non-visit Dr. Reema Myers Work Phone: [facility] Start: 05-06-2022 End: 05-06-2022 Admission to same day surgery center Dr. Reema Myers Work Phone: [facility]/Special Procedures Start: 05-06-2022 End: 05-06-[address] Reema Myers Work Phone: [facility] Work Phone: Start: 04-09-2022 End: 04-09-[address] Reema Myers Work Phone: [facility] Start: 02-09-2022 End: 02-09-[address] Reema Myers Work Phone: [facility] Start: 02-02-2022 Non-patient / Non-visit Dr. Reema Myers Work Phone: [facility] Start: 02-02-2022 End: 02-02-2022 Admission to same day surgery center Dr. Reema Myers Work Phone: [facility]/Special Procedures Start: 01-26-2022 End: 01-26-[address] Reema Myers Work Phone: [facility] Start: 11-13-2021 Non-patient / Non-visit Dr. Reema Myers Work Phone: [facility] Start: 11-13-2021 End: 11-13-[address] Reema Myers Work Phone: [facility]-Cardiovascular Services Start: 10-31-2021 End: 10-31-[address] Reema Myers Work Phone: [facility] Start: 10-30-2021 Non-patient / Non-visit Dr. Reema Myers Work Phone: [facility] Start: 05-20-2015 End: 05-20-2015 Office outpatient visit 25 minutes Olga [facility]ars [facility] Start: 01-18-2015 End: 01-26-2015 Office outpatient visit 5 minutes Olga Spe[facility] Start: 01-16-2015 End: 01-16-2015 Office outpatient visit 25 minutes Olga Roberts [facility] Start: 07-18-2014 End: 07-18-2014 Office outpatient visit 25 minutes Olga Roberts [facility] Start: 04-13-2013 End: 04-13-2013 Phone Encounter Olga Spears [facility] Manager al Medicine Start: 04-12-2013 End: 04-12-2013 Phone Encounter Olga Roberts [facility] Business Development [facility] Medicine Start: 04-07-2013 End: 04-07-2013 Patient encounter procedure Olga Tory [facility] Internal Medicine Start: 10-04-2012 End: 10-04-2012 Patient encounter procedure Olga Tory [facility] Internal Medicine Start: 02-05-2012 End: 02-05-2012 Patient encounter procedure Olgaannette Perezon [facility] Internal Medicine Start: 06-12-2011 End: 06-12-2011 Patient encounter procedure Olga Tory [facility] Internal Medicine Start: 06-01-2011 End: 06-01-2011 Annotation/Addendum Olga Spears [facility] Senior Business Development Manager al Medicine Start: 06-01-2011 End: 06-01-2011 Office outpatient visit 15 minutes Olga Spears [facility] Internal Medicine Start: 10-27-2010 End: 10-27-2010 Patient encounter procedure Olga Tory [facility] Internal Medicine Start: 08-28-2010 End: 08-28-2010 Patient encounter procedure Olga Tory [facility] Internal Medicine Start: 04-25-2010 End: 04-25-2010 Patient encounter procedure Olga Tory [facility] Internal Medicine Start: 01-10-2010 End: 01-10-2010 Patient encounter procedure Olga Tory [facility] Internal Medicine Start: 10-25-2009 End: 10-25-2009 Patient encounter procedure Olga Tory [facility] Internal Medicine Start: 04-25-2009 End: 04-25-2009 Patient encounter procedure Olga Tory [facility] Internal Medicine Start: 03-01-2009 End: 03-01-2009 Office outpatient visit 25 minutes Olga Spears [facility] Internal Medicine Start: 02-22-2009 End: 02-22-2009 Office outpatient visit 10 minutes Olga Spears [facility] Internal Medicine Start: 02-18-2009 End: 02-18-2009 Office outpatient visit 25 minutes Olga Spears [facility] Internal Medicine Start: 01-21-2009 End: 01-21-2009 Historical Summary Olga Roberts [facility] Start: 01-21-2009 End: 01-21-2009 Office outpatient visit 15 minutes Olga Spears [facility] Internal Medicine Start: 01-04-2009 End: 01-07-2009 Patient encounter procedure Olga Spears [facility] Internal Medicine Start: 07-02-2008 End: 07-02-2008 Patient encounter procedure Olga Spears [facility] Internal Medicine Start: 09-23-2007 End: 09-23-2007 Office outpatient visit 25 minutes Olga Spears [facility] Internal Medicine Start: 09-05-2007 End: 09-05-2007 Patient encounter procedure Olga Spears [facility] Internal Medicine Start: 04-12-2007 End: 04-12-2007 Historical Summary Olga Spears [facility] Senior Business Development Manager al Medicine Start: 11-29-2006 End: 11-29-2006 Office outpatient visit 10 minutes Olga Spears [facility] Internal Medicine Start: 11-25-2006 End: 11-25-2006 Historical Summary Olga Spears [facility] Senior Business Development Manager al Medicine Start: 10-29-2006 End: 10-31-2006 Office outpatient visit 25 minutes Olga Spears [facility] Internal Medicine Start: 04-23-2006 End: 04-23-2006 Office outpatient visit 25 minutes Olga Spears [facility] Internal Medicine Start: 03-23-2006 End: 03-23-2006 Historical Summary Olga Spears [facility] Senior Business Development Manager al Medicine Procedures Date Procedure Procedure Detail [...] Kidney and Bladder Comments: See Note; NOTES: [facility] Imaging Services [address] [place] [id number] Kidney and Bladder MR#: [id number] Acct: [id number] Name: ANJUM SERRANO Rep #: [id number] : 1945 M 72 From: Roni Hackett DO PCP: Olga Spears DO Status: [facility] CLI Study: Kidney and Bladder Date of Exam: 12/17/17 Exam# [id number] Ordering Dr: Grecia Swian CLINICAL BIOSTATISTICIAN-C STUDY: RENAL ULTRASOUND - COMPLETE REASON FOR [...] CC: Olga Spears DO; Grecia Swain NP Summer Camp Counselor: Signed Olga Spears Work Phone: Start: 08-31-2015 End: 08-31-2015 Operative Report Comments: See Note; NOTES: [facility] Medical Records Department [address] [place] [address] Operative Report MR#: [id number] Acct: [id number] Name: ANJUM SERRANO Rep #: [id number] : 1945 70 From: Almas Villegas MD PCP: Olga Spears DO Status: REG [facility] DATE OF SERVICE: 08/30/2015 DATE [...] filled with water-soluble lubricant, dilated to 28 [place] and then a 26-[place] resectoscopic sheath was inserted. Then, using the [...] condition. Almas Villegas MD T: NTS JOB: [id number] 08/31/15 1151 <Electronically signed by Almas Villegas MD> Date Almas Villegas MD Cosigner Signature (If Indicated): Date CC: Olga Spears DO; Almas Villegas MD Date Dictated: 08/30/151325 Date Transcribed: 08/30/151325 Summer Camp Counselor: Signed Olga Spears Start: 08-31-2015 End: 08-31-2015 Discharge Instruction Comments: See Note; NOTES: [facility] Medical Records Department [address] [place] [address] Instructions for Home/Discharge Instructions 08/31/15 1150 MR#: [id number] Acct: [id number] Name: ANJUM SERRANO Rep #: [id number] : 1945 70 From: Almas Villegas MD PCP: Olga Spears DO Status: REG [facility] Discharge Diet: No Restrictions - [...] Please Follow Up With: Almas Villegas - [phone] When: CALL SOON FOR AN APPT IN ABOUT 2 WKS, NO CHANGES, ADDITIONS TO HOME MEDS 08/31/15 1154 <Electronically signed by Almas Villegas MD> Date Almas Villegas MD CC: Olga Martini Start: 08-26-2015 End: 08-26-2015 12 lead ECG Comments: See Note; NOTES: [facility] Cardiovascular Services [address] [place] [address] EKG - [facility] 08/23/151424 MR#: [id number] Acct: [id number] Name: ANJUM SERRANO Rep #: [id number] : 1945 70 From: Almas Rodriguez MD Attending Dr: Almas Villegas MD Status: PRE SDC Ordering Dr: Almas Villegas MD Date: 08/23/15 Location: [facility] Sex: M C Admitted: Test Reason : Blood Pressure : / mmHG Vent. Rate : 058 BPM Atrial Rate : 058 BPM P-R Int : 192 ms QRS Dur : 098 ms QT Int : 408 ms P-R-T Axes : 045 066 062 degrees QTc Int : 400 ms Sinus bradycardia Otherwise normal ECG Confirmed by KARI VELASQUEZ, ALMAS ([id number]), newspaper managing editor GIDEON MESA ([id number]) on 08/26/2015 1:30:14 PM Referred By: RODOLFO VILLEGAS Confirmed By:ALMAS RODRIGUEZ MD 08/26/15 1330 Date Almas Rodriguez MD CC: Olga Spears DO; Almas Rodriguez MD Date Dictated: 08/23/151424 Date Transcribed: 08/23/151424 Summer Camp Counselor: Signed Olga Spears Work Phone: Start: 01-16-2015 [...] Date Care Activity Detail Author Start: 01-04-2025 [facility] Start: 11-06-2023 Patient discharge [facility] Start: 11-05-2023 Referral to occupati onal therapist [facility] Start: 11-05-2023 Referral to service [facility] Start: 11-05-2023 Colonoscopy Colonoscopy,EG D (Not Applicable) [facility] Start: 11-05-2023 Partial thromboplast in time, activated [facility] Start: 11-05-2023 Prothrombin time [facility] Start: 11-05-2023 Blood chemistry [facility] Start: 11-05-2023 Application of intermittent pneumatic compression device [facility] Start: 11-04-2023 Following clinical pathway protocol [facility] Start: 11-04-2023 Transfusion of blood product [facility] Start: 11-04-2023 Consultation [facility] Start: 11-04-2023 Ambulation without limitation [facility] Start: 11-04-2023 Following clinical pathway protocol [facility] Start: 11-04-2023 Incentive spirometry [facility] Start: 11-04-2023 Inhalation therapy procedure [facility] Start: 11-04-2023 Introduction of urin prosper catheter [facility] Start: 11-04-2023 Taking patient vital signs [facility] Start: 11-04-2023 [facility] Start: 11-04-2023 Administration of bl ood product [facility] Start: 11-04-2023 Leukocyte reduced re d blood cells [facility] Start: 11-04-2023 End: 11-04-2023 [facility] Start: 11-04-2023 Admission procedure [facility] Start: 11-04-2023 End: 11-04-2023 Administration of blood product [facility] Start: 10-20-2023 Colonoscopy w/biopsy single/multiple COLONOSCOPY AND BIOPSY [facility] Start: 10-20-2023 Colsc flx w/rmvl of tumor polyp lesion snare tq COLONOSCOPY W/LESION REMOVAL [facility] Start: 10-20-2023 Egd transoral biopsy single/multiple EGD BIOPSY SINGLE/MULTIPLE [facility] Start: 10-20-2023 Patient discharge [facility] Start: 05-20-2015 Patient Education Flu (Influen za) *: flu shot [facility] Work Phone: Start: 05-20-2015 Provider Instruction s for Treatment [facility] Work Phone: Start: 05-20-2015 Assay of prostate specific antigen total PSA (PROSTATE SPECIFIC ANTIGEN) (V76.44) [facility] Work Phone: Start: 05-20-2015 Lipid panel LIPID PANEL (37544) [facility] Internal Medicine Work Phone: Start: 05-20-2015 TSH Qn TSH (79016) [facility] Work Phone: Start: 05-20-2015 Urnls dip stick/tabl et reagent auto microscopy URINALYSIS, W/ MICRO (31912) [facility] Work Phone: Start: 05-20-2015 Urine albumin quantitative MICROALBUMIN: CREATININE RATIO (46874) AND (90579) [facility] Work Phone: Start: 05-20-2015 Comprehensive metabo lic panel METABOLIC PANEL, COMPREHENSIVE (22977) [facility] Work Phone: Start: 05-20-2015 Blood count complete auto&auto difrntl wbc CBC W/AUTO DIFF WBC (11889) [facility] Work Phone: Start: 01-26-2015 Provider Instruction s for Treatment *Colon Cancer Screening [facility] Work Phone: Start: 01-16-2015 TSH Qn TSH (90868) [facility] Work Phone: Start: 01-16-2015 Urnls dip stick/tabl et reagent auto microscopy URINALYSIS, W/ MICRO (78529) [facility] Work Phone: Start: 01-16-2015 Urine albumin quantitative MICROALBUMIN: CREATININE RATIO (14697) AND (24548) [facility] Work Phone: Start: 01-16-2015 Comprehensive metabo lic panel METABOLIC PANEL, COMPREHENSIVE (02130) [facility] Work Phone: Start: 01-16-2015 Lipid panel LIPID PANEL (73548) [facility] Work Phone: Start: 01-16-2015 Blood count complete auto&auto difrntl wbc CBC W/AUTO DIFF WBC (13728) [facility] Work Phone: Start: 01-16-2015 [...] Work Phone: Start: 07-18-2014 TSH Qn TSH (49459) [facility] Work Phone: Start: 07-18-2014 Urnls dip stick/tabl et reagent auto microscopy URINALYSIS, W/ MICRO (46833) [facility] Work Phone: Start: 07-18-2014 Urine albumin quantitative MICROALBUMIN: CREATININE RATIO (23139) AND (27594) [facility] Work Phone: Start: 07-18-2014 Comprehensive metabo lic panel METABOLIC PANEL, COMPREHENSIVE (14197) [facility] Work Phone: Start: 07-18-2014 Lipid panel LIPID PANEL (93571) [facility] Work Phone: Start: 07-18-2014 Blood count complete auto&auto difrntl wbc CBC W/AUTO DIFF WBC (56153) [facility] Work Phone: Start: 07-18-2014 Blood occult fecal h gb deter ia qual feces 1-3 FECAL OCCULT- Tubes sent home (27032) [facility] Work Phone: Start: 07-18-2014 Assay of prostate specific antigen total PSA (PROSTATE SPECIFIC ANTIGEN) (V76.44) [facility] Work Phone: Start: 04-13-2013 PSA TOTAL +%FREE [phone] (23570) PSA TOTAL +%FREE 542741 (45928) [facility] Work Phone: Start: 04-12-2013 Lipid panel Lipid Panel (05385) [facility] Work Phone: Start: 04-07-2013 Patient Education Flu (Influen za) *: flu shot [facility] Work Phone: Start: 04-07-2013 Provider Instruction s for Treatment [facility] Work Phone: Start: 04-07-2013 Blood occult fecal h gb deter ia qual feces 1-3 FECAL OCCULT- Tubes sent home (11025) [facility] Work Phone: Start: 10-04-2012 [...] 11-06-2010 Hepatic function panel HEPATIC FUNCTION PANEL (45836) [facility] Work Phone: Start: 11-06-2010 Lipid panel LIPID PANEL (84794) [facility] Work Phone: Start: 10-27-2010 [...] Work Phone: Start: 04-25-2010 TSH Qn TSH (48700) [facility] Work Phone: Start: 04-25-2010 Urnls dip stick/tabl et reagent auto microscopy URINALYSIS, W/ MICRO (76515) [facility] Work Phone: Start: 04-25-2010 Urine albumin quantitative MICROALBUMIN: CREATININE RATIO (59521) AND (94577) [facility] Work Phone: Start: 04-25-2010 Comprehensive metabo lic panel METABOLIC PANEL, COMPREHENSIVE (92407) [facility] Work Phone: Start: 04-25-2010 Blood count manual c ell count each CBC WITH MANUAL DIFF (26411) [facility] Work Phone: Start: 04-25-2010 Lipid panel LIPID PANEL (07177) [facility] Work Phone: Start: 01-10-2010 Provider Instruction s for Treatment [facility] Work Phone: Start: 01-10-2010 Lipid panel LIPID PANEL (98558) [facility] Work Phone: Comment on above: DO IN 6 MONTHS Start: 10-25-2009 Provider Instruction s for Treatment [facility] Work Phone: Start: 10-25-2009 TSH Qn TSH (66731) [facility] Work Phone: Start: 10-25-2009 Urnls dip stick/tabl et reagent auto microscopy URINALYSIS, W/ MICRO (09072) [facility] Work Phone: Start: 10-25-2009 Urine albumin quantitative MICROALBUMIN: CREATININE RATIO (29390) AND (44341) [facility] Work Phone: Start: 10-25-2009 Comprehensive metabo lic panel METABOLIC PANEL, COMPREHENSIVE (55821) [facility] Work Phone: Start: 10-25-2009 Lipid panel LIPID PANEL (93473) [facility] Work Phone: Start: 10-25-2009 Blood count manual c ell count each CBC WITH MANUAL DIFF (24131) [facility] Work Phone: Start: 04-25-2009 Provider Instruction s for Treatment [facility] Work Phone: Start: 04-25-2009 Hepatic function panel HEPATIC FUNCTION PANEL (69138) [facility] Work Phone: Start: 04-25-2009 Lipid panel LIPID PANEL (88872) [facility] Work Phone: Comment on above: do in 3 months Start: 02-22-2009 Provider Instruction s for Treatment Reviewed Lab [facility] Work Phone: Start: 02-22-2009 Blood gases any combination ph pco2 po2 co2 hco3 BLOOD GAS PH PCO2 PO2 H/CO2 (ABG) (95698) [facility] Work Phone: Start: 07-02-2008 Provider Instruction s for Treatment [facility] Work Phone: Start: 09-23-2007 Provider Instruction s for Treatment [facility] Work Phone: Start: 09-23-2007 TSH Qn TSH (91825) [facility] Work Phone: Start: 09-23-2007 Hepatic function panel HEPATIC FUNCTION PANEL (35270) [facility] Work Phone: Start: 09-23-2007 Lipid panel LIPID PANEL (47305) [facility] Work Phone: Start: 09-05-2007 Provider Instruction s for Treatment [facility] Work Phone: Start: 10-29-2006 Provider Instruction s for Treatment [facility] Work Phone: Start: 10-29-2006 Glucose [Mass/Vol] Glucose, PP /2 Hour (90802) [facility] Work Phone: Start: 04-23-2006 Assay of prostate specific antigen total PSA (PROSTATE SPECIFIC ANTIGEN) (03013) [facility] Work Phone: Start: 04-23-2006 TSH Qn TSH (67383) [facility] Work Phone: Start: 04-23-2006 Lipid panel LIPID PANEL (89468) [facility] Work Phone: Start: 04-23-2006 Hepatic function panel HEPATIC FUNCTION PANEL (13960) [facility] Work Phone: Anion gap measurement [facility] BUN/Creatinine ratio [facility] Calcium [Mass/volume ] in Serum or Plasma [facility] Carbon dioxide, tota l [Moles/volume] in Serum or Plasma [facility] Cardioversion [facility] Work Phone: CBC W Auto Different ial panel - Blood [facility] Chloride [Moles/volu me] in Serum or Plasma [facility] Colonoscopy [facility] Creatinine [Moles/volume] in Serum or Plasma [facility] CT Chest [facility] CT Chest WO contrast [facility] CT Chest WO contrast [facility] Erythrocyte mean corpuscular volume determination [facility] Glucose [Mass/volume ] in Serum or Plasma [facility] Hematocrit [Volume Fraction] of Blood [facility] Hematocrit [Volume Fraction] of Blood [facility] Hemoglobin [Mass/vol ume] in Blood [facility] Hemoglobin [Mass/vol ume] in Blood [facility] INR in Blood by Coagulation assay [facility] Leukocytes [#/volume ] in Blood [facility] Mean corpuscular hemoglobin concentration determination [facility] Mean corpuscular hemoglobin determination [facility] Measurement of renal function [facility] Neutrophil count [facility] Neutrophil percent differential count [facility] Patient referral [facility] Work Phone: Platelets [#/volume] in Blood [facility] Potassium [Moles/vol ume] in Serum or Plasma [facility] Red blood cell count [facility] Red cell distributio n width determination [facility] Sodium [Moles/volume ] in Serum or Plasma [facility] Urea nitrogen [Mass/volume] in Serum or Plasma [facility] Work Phone: [...] Phone: [facility] Work Phone: [facility] Immunizations Immunization Date Immunization Notes Care Provider Fa cili 05-11-2023 Covid (Spikevax) Dr. Reema Myers Work Phone: [facility] 05-11-2023 RSV Adult BiValent (Abrysvo) Dr. Reema Myers Work Phone: [facility] 03-25-2023 Influenza High-Dose Quadrivalent Dr. Reema Myers Work Phone: [facility] 04-22-2022 Covid Pfizer Bivalen t Booster Dr. Reema Myers Work Phone: [facility] 04-07-2022 influenza, injectabl e, quadrivalent, preservative free Dr. Reema Myers Work Phone: [facility] 10-27-2021 Covid (Pfizer) Dr. Reema cervantes Work Phone: [facility] 03-27-2021 Covid (Pfizer) Dr. Reema cervantes Work Phone: [facility] 08-21-2020 Covid (Pfizer) Dr. Reema cervantes Work Phone: [facility] 08-02-2020 Covid (Pfizer) Dr. Reema cervantes Work Phone: [facility] 08-01-2019 Influenza, high dose seasonal Dr. Reema Myers MD Work Phone: [facility] 08-01-2019 influenza, high dose seasonal, preservative-free Dr. Reema Myers Work Phone: [facility] 07-04-2009 novel [id number], preservative-free, injectable Dr. Reema Myers Work Phone: [facility] 03-01-2009 influenza, seasonal, injectable Olga Tory [facility] Senior Business Development Manager ca Medicine Work Phone: Comment on above: Given in right delto idLot # [id number] 4PExpire 10/2009[facility] Payers Date Payer Category Payer Unknown [id number] 18 2023 Self-pay [id number] 2023 Unknown [id number] 2008 Medicare [id number] 1945 Unknown [id number] 2.16. [id number] Unknown Unknown [id number] Unknown [id number] 2.16.8 40.1.218343.3.579.2.462 Unknown [id number] 2.16.8 40.1.554144.3.579.2.462 Unknown [id number] 2.16.8 40.1.213353.3.579.2.462 Unknown [id number] 2.16.8 40.1.861546.3.579.2.462 Unknown [id number] 2.16.8 40.1.997743.3.579.2.462 Unknown [id number] 2.16.8 40.1.837318.3.579.2.462 Unknown [id number] 2.16.8 40.1.451877.3.579.2.462 Unknown [id number] 2.16.8 40.1.763990.3.579.2.462 Unknown [id number] 2.16.8 40.1.673504.3.579.2.462 Unknown [id number] 2.16.8 40.1.500977.3.579.2.462 Unknown [id number] 2.16.8 40.1.428008.3.579.2.462 Unknown [id number] 2.16.8 40.1.186034.3.579.2.462 Unknown [id number] 2.16.8 40.1.383050.3.579.2.462 Unknown [id number] 2.16.8 40.1.514439.3.579.2.462 Unknown [id number] 2.16.8 40.1.813112.3.579.2.462 Unknown [id number] 2.16.8 40.1.694423.3.579.2.462 Unknown [id number] 2.16.8 40.1.808167.3.579.2.462 Unknown [id number] 2.16.8 40.1.341645.3.579.2.462 Unknown [id number] 2.16.8 40.1.630972.3.579.2.462 Unknown [id number] 2.16.8 40.1.290035.3.579.2.462 Unknown [id number] 2.16.8 40.1.924225.3.579.2.462 Unknown [id number] 2.16.8 40.1.681477.3.579.2.462 Unknown [id number] 2.16.8 40.1.530711.3.579.2.462 Unknown [id number] 2.16.8 40.1.442276.3.579.2.462 Social History Date Type Detail Facility Alcohol [...] smoking status NHIS Unknown if ever smoked [facility] Start: 05-31-2019 Cigarettes [facility] Start: 1945 Sex Assigned At Male W [facility] Start: 08-09-2024 Tobacco smoking stat us DEIS Ex-smoker (finding) [facility] Medical Equipment Procedure Code Equipment Code [...] Result Facility 11-06-2023 Functional status Ambulates;Bedside Commo [facility] Work Phone: 11-05-2023 Functional status Ambulates;Bedside Commo [facility] Work Phone: Mental Status Date Assessment Result Facility 11-06-2023 Cognitive function Appropriate;[facility] Work Phone: 11-04-2023 Cognitive function Appropriate;[facility] Work Phone: 10-20-2023 Cognitive function Voice/Name [facility] Work Phone: Clinical Notes 03-14-2021 to 12-13-2024 Note Date & Type Note Facility 12-13-2024 Evaluation note Diagnosis Onset Date Resolution Central sleep apnea acute December 13, 2024 2:06pm Lung nodule acute December 13 2:06pm COPD (chronic obstructive pulmonary disease) chronic December 13, 2024 2:06pm [facility] Work Phone: 1(339) 309-247803-05-2025 Evaluation note* Diagnosis Onset Date Resolution Status Admit Date Iron deficiency anemia due t o chronic blood loss chronic August 30 1:01pm Central sleep apnea acute December 13, 2024 2:06pm Lung nodule acute December 13 2:06pm COPD (chronic obstructive pulmonary disease) chronic December 13 2:06pm [facility] Work Phone: 1(316) 501-874005-11-2024 Progress note Author Amber Fang [facility] November 06, 2023 11:23am Note Date/Time November 06, 2023 11:24 am [facility] Medical Records Department [address] [place] [address] Progress Note - Hospitalist 11/06/23 1116 MR#: [id number] Acct: [id number] Name: ANJUM SERRANO Rep #:[id number] : 1945 78 From: Amber Fang DO PCP: Dr. Reema Myers MD Status:ADM IN Location: MS3 II032-9 Reason for Visit Reason for Visit: Shortness of breath Subjective Subjective No complaints at this time. Nursing is at the bedside and notes his blood pressure is systolic 107 and he has metoprolol 50 mg do. At this point the patient states he is unclear why he is on 50 mg. He is not sure why his marine engineering consultant increase the dose. I reviewed the most [...] primary service Charges/Coding Visit Charges Inpatient E&M: 39452 Subs Hosp L2 11/06/23 1123 <Electronically signed by Amber Fang DO> Cosigner Signature (if applicable): CC: ~ Signed [facility] Work Phone: 1(265) 507-864805-11-2024 Progress note Author Shawn Moore [facility] November 06, 2023 11:17am Note Date/Time November 06, 2023 10:00 am [facility] Medical Records Department [facility] [place] [address] Progress Note - Surgery 11/06/23 1000 MR#: [id number] Acct: [id number] Name: ANJUM SERRANO Rep #:[id number] : 1945 78 From: Shawn Couch PCP: Dr. Reema Myers MD Status:ADM IN Location: [facility] [id number] Subjective Subjective Patient seen and examined during [...] Moore MD General Surgery Endocrine Surgery Pager: [facility] [address] [place] [address], [address] [place] [address] Office: [phone] Charges/Coding Visit Charges Inpatient E&M: 51360 Subs Hosp L2 11/06/23 1117 <Electronically signed by Shawn Moore MD> Cosigner Signature (if applicable): CC: ~ Signed [facility] Work Phone: 1(595) 491-148605-10-2024 Progress note Author Amber Fang [facility] November 05, 2023 5:34pm Note Date/Time November 05, 2023 8:56a m [facility] Medical Records Department [address] [place] [address] Progress Note - Hospitalist 11/05/23 0849 MR#: [id number] Acct: [id number] Name: ANJUM SERRANO Rep #:[id number] : 1945 78 From: Amber Fang DO PCP: Dr. Reema Myers MD Status:ADM IN Location: [place] 445867-1 Reason for Visit Reason for Visit: Shortness [...] 160, MPV 10.9, Immature Gran % (Auto) CLINICAL BIOSTATISTICIAN, Neut % (Auto) CLINICAL BIOSTATISTICIAN, Lymph % (Auto) CLINICAL BIOSTATISTICIAN, Mower % (Auto) CLINICAL BIOSTATISTICIAN, Eos % (Auto) CLINICAL BIOSTATISTICIAN, Baso % (Auto) CLINICAL BIOSTATISTICIAN, Absolute Neuts (auto) 6.1, Absolute Lymphs (auto) 1.00, Total Counted 100, Neutrophils % (Manual) 68, Band Neutrophils % 2, Lymphocytes % (Manual) 12 L, Monocytes % (Manual) 4, Eosinophils % (Manual) 5, Basophils % (Manual) 2 H, Metamyelocytes % 3 H, Myelocytes % 1 H, Promyelocytes % 3 H, Nucleated RBC % CLINICAL BIOSTATISTICIAN, Diff Path Review May , Platelet Estimate [...] primary service Charges/Coding Visit Charges Inpatient E&M: 36596 Subs Hosp L2 11/05/23 1734 <Electronically signed by Amber Fang DO> Rigoigner Signature (if applicable): CC: ~ Signed [facility] Work Phone: 1(699) 138-337705-10-2024 Procedure [facility] 11-05-2023 Procedure [facility]05-10-2024 Procedure note [facility]05-10-2024 Procedure [facility] 11-05-2023 Progress note Author Lilly Navarrete [facility] November 05, 2023 7:47am Note Date/Time November 05, 2023 7:46a m [facility] Medical Records Department [address] [place] [address] Progress Note - Surgery 11/05/23 0744 MR#: [id number] Acct: [id number] Name: ANJUM SERRANO Rep #:[id number] : 1945 78 From: Lilly Navarrete MD PCP: Dr. Reema Myers MD Status:ADM IN Location: [place] [address]-1 Subjective Subjective Patient tolerated prep well clear [...] 160, MPV 10.9, Immature Gran % (Auto) CLINICAL BIOSTATISTICIAN, Neut % (Auto) CLINICAL BIOSTATISTICIAN, Lymph % (Auto) CLINICAL BIOSTATISTICIAN, Mower % (Auto) CLINICAL BIOSTATISTICIAN, Eos % (Auto) CLINICAL BIOSTATISTICIAN, Baso % (Auto) CLINICAL BIOSTATISTICIAN, Absolute Neuts (auto) 6.1, Absolute Lymphs (auto) 1.00, Total Counted 100, Neutrophils % (Manual) 68, Band Neutrophils % 2, Lymphocytes % (Manual) 12 L, Monocytes % (Manual) 4, Eosinophils % (Manual) 5, Basophils % (Manual) 2 H, Metamyelocytes % 3 H, Myelocytes % 1 H, Promyelocytes % 3 H, Nucleated RBC % CLINICAL BIOSTATISTICIAN, Diff Path Review October, Platelet Estimate ADEQUATE, [...] cells?AM labs pending Lilly Navarrete M.D. Pager: [phone] [facility] [address] [place] [address], [facility], [address] [place] [address] Office: [phone] 11/05/23 0735 <Electronically signed by Lilly Navarrete MD> Cosigner Signature (if applicable): CC: ~ Signed [facility] Work Phone: 1(903) 326-482005-10-2024 Consult note [facility] November 04, 2023 10:15pm Note Date/Time November 04, 2023 2:30pm [facility] Medical Records Department [address] [place] [address] Consultation - Hospitalist 11/04/23 1430 MR#: [id number] Acct: [id number] Name: ANJUM SERRANO Rep #:[id number] : 1945 78 From: Freddie anderson DO PCP: Dr. Reema Myers MD Status:ADM [facility] Assessment & Plan Assessment/Plan (1) Acute GI bleeding: (2) Anemia: PLAN: Plan Patient is an 78-year-old male who presented [facility] ED on 11/04/2023 with worsening shortness [...] 2. A-fib on Eliquis ? Follows with [facility]. Home medications of amiodarone 200 [...] is a 78 M who presented to [facility] ED on 11/04/2023 with worsening shortness [...] under general surgery service for further management. [facility] Medical History Alcohol use Anemia Arthritis Back [...] 160, MPV 10.9, Immature Gran % (Auto) CLINICAL BIOSTATISTICIAN, Neut % (Auto) CLINICAL BIOSTATISTICIAN, Lymph % (Auto) CLINICAL BIOSTATISTICIAN, Mower % (Auto) CLINICAL BIOSTATISTICIAN, Eos % (Auto) CLINICAL BIOSTATISTICIAN, Baso % (Auto) CLINICAL BIOSTATISTICIAN, Nucleated RBC % CLINICAL BIOSTATISTICIAN, Sodium 140, Potassium 4.3, Chloride 109 H, [...] EDT , Charges/Coding Visit Charges Inpatient E&M: 45103 Subs Hosp L2 11/04/23 2215 <Electronically signed by Freddie christine DO> Cosigner Signature (if applicable): CC: Dr. Reema Myers MD~ Signed [facility] Work Phone: 1(213) 807-747405-09-2024 Discharge summary Author Fitz Denney [facility] November 04, 2023 4:41pm Note Date/Time November 04, 2023 1:00pm [facility] Medical Records Department [address] [place] [address] Emergency Department Summary 11/04/23 MR#: [id number] Acct: [id number] Name: ANJUM SERRANO Rep #:[id number] : [...] going on a long car ride to [place]. He denies any fevers, chills, chest pain, [...] Ox 93 Oxygen Delivery Method Room Air [facility] <KRISTIAN Lyons - Last Filed: 11/04/23 15:19> [facility] Narrative Medical decision making narrative: Patient presenting [...] 160 MPV 10.9 Immature Gran % (Auto) CLINICAL BIOSTATISTICIAN Neut % (Auto) CLINICAL BIOSTATISTICIAN Lymph % (Auto) CLINICAL BIOSTATISTICIAN Mower % (Auto) CLINICAL BIOSTATISTICIAN Eos % (Auto) CLINICAL BIOSTATISTICIAN Baso % (Auto) CLINICAL BIOSTATISTICIAN Absolute Neuts (auto) 6.1 Absolute Lymphs (auto) 1.00 Total Counted 100 Neutrophils % (Manual) 68 Band Neutrophils % 2 Lymphocytes % (Manual) 12 L Monocytes % (Manual) 4 Eosinophils % (Manual) 5 Basophils % (Manual) 2 H Metamyelocytes % 3 H Myelocytes % 1 H Promyelocytes % 3 H Nucleated RBC % CLINICAL BIOSTATISTICIAN Diff Path Review May foll Platelet Estimate [...] condition. This patient was seen with a PA/CLINICAL BIOSTATISTICIAN Individually assessed they patient including history and physical. I have reviewed everything on the chart that is availableand agree with the documentation provided by the PA/CLINICAL BIOSTATISTICIAN including discussion about the assessment, treatment plan, [...] 160 MPV 10.9 Immature Gran % (Auto) CLINICAL BIOSTATISTICIAN Neut % (Auto) CLINICAL BIOSTATISTICIAN Lymph % (Auto) CLINICAL BIOSTATISTICIAN Mower % (Auto) CLINICAL BIOSTATISTICIAN Eos % (Auto) CLINICAL BIOSTATISTICIAN Baso % (Auto) CLINICAL BIOSTATISTICIAN Absolute Neuts (auto) 6.1 Absolute Lymphs (auto) 1.00 Total Counted 100 Neutrophils % (Manual) 68 Band Neutrophils % 2 Lymphocytes % (Manual) 12 L Monocytes % (Manual) 4 Eosinophils % (Manual) 5 Basophils % (Manual) 2 H Metamyelocytes % 3 H Myelocytes % 1 H Promyelocytes % 3 H Nucleated RBC % CLINICAL BIOSTATISTICIAN Diff Path Review May foll Platelet Estimate [...] 13:38 EDT Reading Location ID and State: [address] [place] [address] , Service support , Discharge Plan Dx/Rx/DC Orders Clinical Impression: Leg edema, Shortness of breath, correction current use of anticoagulant, Longstanding persistent atrial fibrillation, Acute GI bleeding Disposition Disposition: Acute Care Hospital [facility] What to do if you have Problems For any increased pain, shortness of breath, bleeding, nausea or vomiting, chestpain, or any unexpected problems, contact your Primary Care Provider. Call [facility] ([phone]) or report to the closest Emergency Room. Call 911 if necessary. 11/04/23 1519 <Electronically signed by Rhea TOWNSEND> Cosigner Signature (if applicable): 11/04/23 1641 <Electronically signed by Fitz Denney DO> CC: Dr. Reema Myers MD ~ Signed [facility] Work Phone: 1(396) 572-921705-09-2024 History and physical note Author Marcela Lassiter [facility] November 04, 2023 3:52pm Note Date/Time November 04, 2023 3:48pm [facility] Medical Records Department [address] [place] [address] History & Physical Exam 11/04/23 1530 MR#: [id number] Acct: [id number] Name: ANJUM SERRANO Rep #:[id number] : [...] is 5.5 upon admission. BNP is 254.7. [facility] Medical History Alcohol use Anemia Arthritis Back [...] 160, MPV 10.9, Immature Gran % (Auto) CLINICAL BIOSTATISTICIAN, Neut % (Auto) CLINICAL BIOSTATISTICIAN, Lymph % (Auto) CLINICAL BIOSTATISTICIAN, Mower % (Auto) CLINICAL BIOSTATISTICIAN, Eos % (Auto) CLINICAL BIOSTATISTICIAN, Baso % (Auto) CLINICAL BIOSTATISTICIAN, Absolute Neuts (auto) 6.1, Absolute Lymphs (auto) 1.00, Total Counted 100, Neutrophils % (Manual) 68, Band Neutrophils % 2, Lymphocytes % (Manual) 12 L, Monocytes % (Manual) 4, Eosinophils % (Manual) 5, Basophils % (Manual) 2 H, Metamyelocytes % 3 H, Myelocytes % 1 H, Promyelocytes % 3 H, Nucleated RBC % CLINICAL BIOSTATISTICIAN, Diff Path Review October, Platelet Estimate ADEQUATE, [...] Charges/Coding Visit Charges Office Visits / Consults: 23825 IP Consult L3 11/04/23 1343 <Electronically signed by Marcela TOWNSEND PA-C> Cosigner Signature (if applicable): CC: MOLLY Lassiter; Dr. Reema Myers MD~ Signed [facility] Work Phone: 1(842) 317-834805-09-2024 History and physical note Author Marcela Lassiter [facility] November 04, 2023 3:52pm Note Date/Time November 04, 2023 3:48pm [facility] Medical Records Department [address] [place] [address] History & Physical Exam 11/04/23 1530 MR#: [id number] Acct: [id number] Name: ANJUM SERRANO Rep #:[id number] : [...] is 5.5 upon admission. BNP is 254.7. [facility] Medical History Alcohol use Anemia Arthritis Back [...] 160, MPV 10.9, Immature Gran % (Auto) CLINICAL BIOSTATISTICIAN, Neut % (Auto) CLINICAL BIOSTATISTICIAN, Lymph % (Auto) CLINICAL BIOSTATISTICIAN, Mower % (Auto) CLINICAL BIOSTATISTICIAN, Eos % (Auto) CLINICAL BIOSTATISTICIAN, Baso % (Auto) CLINICAL BIOSTATISTICIAN, Absolute Neuts (auto) 6.1, Absolute Lymphs (auto) 1.00, Total Counted 100, Neutrophils % (Manual) 68, Band Neutrophils % 2, Lymphocytes % (Manual) 12 L, Monocytes % (Manual) 4, Eosinophils % (Manual) 5, Basophils % (Manual) 2 H, Metamyelocytes % 3 H, Myelocytes % 1 H, Promyelocytes % 3 H, Nucleated RBC % CLINICAL BIOSTATISTICIAN, Diff Path Review May foll, Platelet Estimate [...] and State: [facility] / [place] , Service support , Assessment & Plan [...] Charges/Coding Visit Charges Office Visits / Consults: 50756 IP Consult L3 11/04/23 4927 <Electronically signed by Marcela TOWNSEND PA-C> Cosigner Signature (if applicable): CC: MOLLY Lassiter; Dr. Reema Myers MD~ Signed [facility] Work Phone: 1(171) 474-325805-09-2024 Discharge summary Author Fitz Олег [facility] November 04, 2023 4:41pm Note Date/Time November 04, 2023 1:00pm [facility] Medical Records Department [address] [place] [address] Emergency Department Summary 11/04/23 MR#: [id number] Acct: [id number] Name: ANJUM SERRANO Rep #:[id number] : 1945 78 From: Rhea TOWNSEND PCP: Dr. Reema Myers MD Status:REG ER Location: ED HPI <KRISTIAN yLons - Last Filed: 11/04/23 15:19> History of [...] going on a long car ride to [place]. He denies any fevers, chills, chest pain, abdominal pain, nausea, or vomiting. PFSH <KRISTIAN Lyons - Last Filed: 11/04/23 15:19> [facility] Medical History Alcohol use Anemia Arthritis Back [...] Ox 93 Oxygen Delivery Method Room Air [facility] <KRISTIAN Lyons - Last Filed: 11/04/23 15:19> [facility] Narrative Medical decision making narrative: Patient presenting [...] 160 MPV 10.9 Immature Gran % (Auto) CLINICAL BIOSTATISTICIAN Neut % (Auto) CLINICAL BIOSTATISTICIAN Lymph % (Auto) CLINICAL BIOSTATISTICIAN Mower % (Auto) CLINICAL BIOSTATISTICIAN Eos % (Auto) CLINICAL BIOSTATISTICIAN Baso % (Auto) CLINICAL BIOSTATISTICIAN Absolute Neuts (auto) 6.1 Absolute Lymphs (auto) 1.00 Total Counted 100 Neutrophils % (Manual) 68 Band Neutrophils % 2 Lymphocytes % (Manual) 12 L Monocytes % (Manual) 4 Eosinophils % (Manual) 5 Basophils % (Manual) 2 H Metamyelocytes % 3 H Myelocytes % 1 H Promyelocytes % 3 H Nucleated RBC % CLINICAL BIOSTATISTICIAN Diff Path Review May foll Platelet Estimate [...] Denney, DO - Last Filed: 11/04/23 16:41> [facility] MDM Narrative Medical decision making narrative: [...] condition. This patient was seen with a PA/CLINICAL BIOSTATISTICIAN Individually assessed they patient including history and physical. I have reviewed everything on the chart that is availableand agree with the documentation provided by the PA/CLINICAL BIOSTATISTICIAN including discussion about the assessment, treatment plan, [...] 160 MPV 10.9 Immature Gran % (Auto) CLINICAL BIOSTATISTICIAN Neut % (Auto) CLINICAL BIOSTATISTICIAN Lymph % (Auto) CLINICAL BIOSTATISTICIAN Mower % (Auto) CLINICAL BIOSTATISTICIAN Eos % (Auto) CLINICAL BIOSTATISTICIAN Baso % (Auto) CLINICAL BIOSTATISTICIAN Absolute Neuts (auto) 6.1 Absolute Lymphs (auto) 1.00 Total Counted 100 Neutrophils % (Manual) 68 Band Neutrophils % 2 Lymphocytes % (Manual) 12 L Monocytes % (Manual) 4 Eosinophils % (Manual) 5 Basophils % (Manual) 2 H Metamyelocytes % 3 H Myelocytes % 1 H Promyelocytes % 3 H Nucleated RBC % CLINICAL BIOSTATISTICIAN Diff Path Review May foll Platelet Estimate [...] Clinical Impression: Leg edema, Shortness of breath, intermediate frame tender current use of anticoagulant, Longstanding persistent atrial fibrillation, Acute GI bleeding Disposition Disposition: Acute Care Hospital [facility] What to do if you have Problems For any increased pain, shortness of breath, bleeding, nausea or vomiting, chestpain, or any unexpected problems, contact your Primary Care Provider. Call [facility] ([phone]) or report to the closest Emergency Room. Call 911 if necessary. 11/04/23 1519 <Electronically signed by Rhea TOWNSEND> Cosigner Signature (if applicable): 11/04/23 1641 <Electronically signed by Fitz Denney DO> CC: Dr. Reema Myers MD ~ Signed [facility] Work Phone: 1(403) 317-449004-24-2024 Procedure [facility] 10-20-2023 Procedure [facility]04-24-2024 Procedure note [facility]04-24-2024 Procedure [facility] 06-30-2023 Procedure [facility]12-31-2023 Procedure note [facility]09-17-2021 Evaluation note* Diagnosis Onset Date Resolution Status Dizziness acute Fatigue acute New onset atrial fibrillation March 14, 2021 acute Essential hypertension chron ic Hyperlipidemia chronic [facility] Work Phone: 1(514) 605-292009-17-2021 Evaluation note* Diagnosis Onset Date Resolution Status Dizziness acute Fatigue acute New onset atrial fibrillation March 14, 2021 acute Essential hypertension chron ic Hyperlipidemia chronic Longstanding persistent atrial fibrillation acute Essential hypertension chron ic Hyperlipidemia chronic Longstanding persistent atrial fibrillation acute [facility] Work Phone: 1(239) 147-270309-17-2021 Evaluation note* Diagnosis Onset Date Resolution Status Daytime hypersomnia acute Lung nodule acute COPD (chronic obstructive pulmonary disease) chronic New onset atrial fibrillation March 14, 2021 chronic Anemia acute Acute GI bleeding acute Leg edema acute correction current use of anticoagulant acute Longstanding persistent atrial fibrillation acute Shortness of breath acute [facility] Work Phone: 1([phone]) 993-889209-17-2021 Evaluation note* Diagnosis Onset Date Resolution Status Daytime hypersomnia acute Lung nodule acute COPD (chronic obstructive pulmonary disease) chronic New onset atrial fibrillation March 14, 2021 chronic Anemia acute Acute GI bleeding acute Anemia acute intermediate frame tender current use of anticoagulant acute Exertional dyspnea acute Leg edema acute Longstanding persistent atrial fibrillation acute Shortness of breath acute [facility] Work Phone: Evaluation note* Diagnosis Onset Date Resolution Status Longstanding persistent atrial fibrillation acute Essential hypertension chron ic Hyperlipidemia chronic Longstanding persistent atrial fibrillation acute Longstanding persistent atrial fibrillation acute Essential hypertension chron ic Hyperlipidemia chronic [facility] Work Phone: Evaluation note* Diagnosis Onset Date Resolution Status Longstanding persistent atrial fibrillation acute Longstanding persistent atrial fibrillation acute Essential hypertension chron ic Hyperlipidemia chronic Longstanding persistent atrial fibrillation acute [facility] Work Phone: Evaluation note* Diagnosis Onset Date Resolution Status Longstanding persistent atrial fibrillation acute Essential hypertension chron ic Hyperlipidemia chronic [facility] Work Phone: Evaluation noteNo assessment information available [facility] Work Phone: Evaluation note* Diagnosis Onset Date Resolution Status Longstanding persistent atrial fibrillation acute COPD (chronic obstructive pulmonary disease) chronic Nicotine dependence, cigarettes, in remission chronic [facility] Work Phone: Evaluation note* Diagnosis Onset Date Resolution Status Longstanding persistent atrial fibrillation acute COPD (chronic obstructive pulmonary disease) chronic Nicotine dependence, cigarettes, in remission chronic Daytime hypersomnia acute Lung nodule acute COPD (chronic obstructive pulmonary disease) chronic New onset atrial fibrillation March 14, 2021 chronic [facility] Work Phone: Evaluation note* Diagnosis Onset Date Resolution Status Longstanding persistent atrial fibrillation acute COPD (chronic obstructive pulmonary disease) chronic Nicotine dependence, cigarettes, in remission chronic Daytime hypersomnia acute Lung nodule acute COPD (chronic obstructive pulmonary disease) chronic New onset atrial fibrillation March 14, 2021 chronic Anemia acute [facility] Work Phone: History and physical note Author Lilly Navarrete [facility] October 20, 2023 8:03am Note Date/Time October 20, 2023 8:0 3am [facility] Medical Records Department [address] [place] [address] History & Physical Exam 10/20/23 0803 MR#: [id number] Acct: [id number] Name: ANJUM SERRANO Rep #:[id number] : 1945 78 From: Lilly Navarrete MD PCP: Dr. Reema Myers MD Status:[facility] Location: [place] [address] History and Physical Date of Admission: 10/20/23 Date of Service: 09/29/23 MR#: [id number] Acct: [id number] Name: ANJUM SERRANO Rep #: [id number] : 1945 Provider: Dr. Lilly Navarrete MD Age/Sex: 78/M Location: [facility] Status: Signed Intake Vital Signs 08/13/2407:29 09/28/2412:59 [...] (Reviewed 08/13/23 @ 14:05 by Lisa Madrigal CLINICAL BIOSTATISTICIAN, CLINICAL BIOSTATISTICIAN-C) BPH (benign prostatic hyperplasia) Cataracts, bilateral Essential [...] MiraLAX Dulcolax prep. Lilly Navarrete M.D. Pager: [phone] [facility] [address] [place] [address], [facility] [place] [facility], [address] [place] [address] Office: [phone] Coding Level of Care Code Off vis,new,level [...] MD; Dr. Lilly Navarrete MD ~* Signed [facility] Work Phone: Reason for referral (narrative)No [facility] Work [facility]: Instructions Name Dates Details How [...] No June 07, 019 4:04pm Power of Fish Flipper No June 07, 2019 4:04pm Advance Directive Response Recorded Date/ Time Advance Directives on File Yes 2021 10:58am Name of Medical Power of Fish Flipper Nan Ignacioo n- February 02, 2022 10:58am Advance Directives Yes February 02 022 10:58am Living Will Yes February 02, 2022 10:58am Power of Fish Flipper Yes February 02 10:58am Advance Directive Response Recorded Date/ Time Advance Directives on File Yes 2021 9:58am Name of Medical Power of Fish Flipper Nan Ignacioo n- February 02, 2022 9:58am Advance Directives No May 06, 2022 10:43am Living Will No May 06 10:43am Power of Fish Flipper No May 06, 2022 10:43am Advance Directive Response Recorded Date/ Time Advance Directives on File Yes Katherine t 2021 9:58am Name of Medical Power of Fish Flipper Nan Montano n- February 02, 2022 9:58am Advance Directives No April 10:42am Living Will No May 27 10:42am Power of Fish Flipper No May 27, 2022 10:42am Advance Directive Response Recorded Date/ Time Advance Directives No February 03 6:23pm Living Will No February 03, 2023 6:23pm Power of Fish Flipper No February 03 6:23pm Advance Directive Response Recorded Date/ Time Advance Directives No February 03 5:23pm Living Will No February 03, 2023 5:23pm Power of Fish Flipper No February 03 5:23pm Advance Directive Response Recorded Date/ Time Name of Medical Power of Fish Flipper SPOUSE October 19, 2023 8:46am Advance Directives No February 03 6:23pm Living Will Yes October 19, 2023 8:46am Power of Fish Flipper Yes October 18 8:46am Advance Directive Response Recorded Date/ Time Name of Medical Power of Fish Flipper SPOUSE October 19, 2023 8:46am Name of Medical Power of Fish Flipper November 04, 2023 3:20pm Advance Directives No February 03 6:23pm Living Will Yes November 04, 2023 3: 20pm Power of Fish Flipper Yes November 04, 2023 3:20pm Advance Directive Response Recorded Date/ Time Name of Medical Power of Fish Flipper SPOUSE October 19, 2023 8:46am Name of Medical Power of Fish Flipper November 04, 2023 6:23pm Advance Directives No February 03 6:23pm Living Will Yes November 04, 2023 6: 23pm Power of Fish Flipper Yes November 04, 2023 6:23pm Advance Directive Response Recorded Date/ Time Living Will Yes November 04, 2023 6: 23pm Do you have a Healthcare Power of Fish Flipper? Yes November 04, 2023 6:23pm Advance Directives No February 03 6:23pm Advance Directive Response Recorded Date/ Time Advance Directives No February 03 6:23pm Chief Complaint and Reason for Visit Chief Complaint Amb Documentation 6 M FU/WE RS FROM ONCOLOGY CONSULTANT 4/5 E-ORDER Reason for Visit Dizziness Fatigue New onset atrial fibrillation Essential hypertension Hyperlipidemia Chief Complaint Amb Documentation 6 M FU/WE RS FROM ONCOLOGY CONSULTANT 4/5 E-ORDER DIZZINESS Reason for Visit Dizziness Fatigue New onset atrial fibrillation Essential hypertension Hyperlipidemia Chief Complaint Amb Documentation 6 M FU/WE RS FROM ONCOLOGY CONSULTANT 4/5 E-ORDER DIZZINESS 2-3 MO F/U PERSISTENT [...] fibrillation Anemia Acute GI bleeding Leg edema correction current use of anticoagulant Longstanding persistent atrial [...] atrial fibrillation Anemia Acute GI bleeding Anemia correction current use of anticoagulant Exertional dyspnea Leg [...] atrial fibrillation Anemia Acute GI bleeding Anemia correction current use of anticoagulant Exertional dyspnea Leg [...] section and content) DATE CREATED AUTHOR 02/26/[address] [facility] DATE CREATED AUTHOR AUTHOR'S ORGANIZ ATION 03/31/[address] [facility] DATE CREATED AUTHOR AUTHOR'S ORGANIZ ATION 09/29/2024 [facility] DATE CREATED AUTHOR AUTHOR'S ORGANIZ ATION 01/15/2025 [facility] Goals (unrecognized section and content) Goals may [...] Provider, Referrin g Provider Active Lisa Madrigal CLINICAL BIOSTATISTICIAN, CLINICAL BIOSTATISTICIAN-C Attending Provider Active Team Status: Inactive Member Role Status Dates Dr. Reema Myers MD Primary Care Provider Active Lisa Madrigal CLINICAL BIOSTATISTICIAN, CLINICAL BIOSTATISTICIAN-C Attending Provider, Referrin g Provider Active Team Status: Active Member Role Status Dates Dr. Reema Myers MD Primary Care Provider Active Lisa Madrigal CLINICAL BIOSTATISTICIAN, CLINICAL BIOSTATISTICIAN-C Attending Provider, Referrin g Provider Active Team [...] , DO Other Provider Active Dr. Amber aFng , DO Other Provider Active Dr. Shawn [...] End: October 23, 2024 Lisa Madrigal NP, CLINICAL BIOSTATISTICIAN-C Other Provider Active Start: October 23, 2024 [...] End: October 23, 2024 Lisa Madrigal NP, CLINICAL BIOSTATISTICIAN-C Other Provider Active Start: October 23, 2024 End: October 23, 2024 Jacqueline Sullivan NP-C Attending Provider Active Start: October 23, 2024 End: October 23, 2024 Jacqueline Sullivan NP-C Referring Provider Active Start: October 23, 2024 End: October 23, 2024 Team Status: Inactive Member Role/Relationship Status Dates Dr. Reema Myers MD Referring Provider Active Start: December 13, 2024 End: December 13, 2024 Payal Sesay CLINICAL BIOSTATISTICIAN-C Attending Provider Active Start: December 13, 2024 [...] End: October 23, 2024 Lisa Madrigal NP, CLINICAL BIOSTATISTICIAN-C Other Provider Active Start: October 23, 2024 End: October 23, 2024 Jacqueline Sullivan CLINICAL BIOSTATISTICIAN-C Attending Provider Active Start: October 23, 2024 End: October 23, 2024 Jacqueline Sullivan CLINICAL BIOSTATISTICIAN-C Referring Provider Active Start: October 23, 2024 [...] PRIMARY CLINICAL RECORDS. [facility] [employer] [facility]. provides no warranty or guarantee of the accuracy or completeness of information in this document.
[2025-01-17] MEDS: Pantoprazole Sodium 80 MG in 0.9% Normal Saline (50mL Bag) 15 ML 420 MG IV BOLUS (22:06)
[2025-01-18] VITALS (12 sets, daily range): BP systolic 91–117; BP diastolic 60–71; PULSE 69–101; RESP 14–18; TEMP 36.4–36.7; O2SAT 97–100; BMI 31.4
[2025-01-18 03:47] LABS: Hematocrit 24.8 % (40-54); Hemoglobin 7.9 g/dL (13.0-16.5); Mean Corp Hgb Conc 31.9 g/dL (32-36); Mean Corpuscular Volume 99.2 fL (80-94); Mean Platelet Vol. 11.3 fl (6.2-12.0); POSITIVE COUNT YES; POSITIVE MORPHOLOGY YES; Platelet Count 113 K/mm3 (150-450); RBC Distribution Width CV 19.0 % (11.6-14.6); RBC Distribution Width SD 66.4 fl (35.1-43.9); Red Blood Count 2.50 M/mm3 (4.6-6.2); White Blood Count 5.2 K/mm3 (4.4-11.0)
[2025-01-18 04:01] LABS: Prothrombin Time (Protime)PT. 14.9 SECONDS (11.7-14.9)
[2025-01-18 04:05] LABS: Anion Gap 10 (5-15); BUN 20 mg/dL (4-19); BUN/Creat Ratio 21.8 RATIO (10-20); Calcium,Total 8.2 mg/dL (7.6-11.0); Carbon Dioxide 21.7 mmol/L (21.0-32.0); Chloride 108 mmol/L (98-108); Estimated Creatinine Clearance 78.84 ml/min (50-250); Glucose 94 mg/dL (70-99); Potassium 3.9 mmol/L (3.3-5.1)
[2025-01-18 04:08] LABS: Differential Indicated MANUAL DIFF
[2025-01-18 04:46] LABS: Neutrophil-Band 4 % (0-5); Neutrophil-Segmented 60 % (47-70); Total Cells Counted 100 (MANUAL DIFF)
[2025-01-18 04:47] LABS: Anisocytosis RARE
--- NOTE | 2025-01-18 09:00 | EKG12_ITS ---
Test Reason : Blood Pressure : */* mmHG Vent. Rate : 78 BPM Atrial Rate : * BPM P-R Int : * ms QRS Dur : 96 ms QT Int : 392 ms P-R-T Axes : * 31 14 degrees QTcB Int : 446 ms Atrial fibrillation Abnormal ECG When compared with ECG of 04-Nov-2023 12:58, No significant change was found Confirmed by NANCY VELASQUEZ, PADMINI ([id number]), makeup editor ANTHONY LICEA ([id number]) on 01/19/2025 1:19:36 PM Referred By: Isai Fitzpatrick Confirmed By: PADMINI CRUZ MD
[2025-01-18 09:29] LABS: Hematocrit 24.4 % (40-54); Hemoglobin 7.7 g/dL (13.0-16.5)
--- NOTE | 2025-01-18 11:22 | CASEMGMT ---
Dx: Symptomatic Anemia, Concern for GI Bleed LACE: 2 6-Clicks: 23 Medical record reviewed and patient evaluated for identification of discharge planning needs. Based on this review, at this time criteria are not present to indicate a need for discharge planning. Will remain available to assist with discharge planning needs as identified or requested.
[2025-01-18] MEDS: Lactated Ringers 1,000 ML 15 ML IV (11:48)
--- NOTE | 2025-01-18 12:06 | EX.PCM.CON.G ---
HPI Consult Data Date of Consult: 01/18/25 HPI Narrative Reason for Consultation: Anemia HPI Narrative: ANJUM GILBERT, is a 79-year-old male presented to the ED with fatigue, weakness and abnormal labs. He has a past medical history of chronic anemia, atrial fibrillation on Eliquis. , had workup for GI bleeding which was negative last year. He had an upper lower endoscopy by Dr. Shawn Moore. He has received blood transfusions in the past was sent in by his primary care provider for hemoglobin of 7 today. Upon recheck his hemoglobin was down to 6. He states that over the last 3 to 4 days he has felt very weak, tired, and short of breath. He denies any chest pain, and he always has dark stool because he is on iron. He states he has had 2 colonoscopies, and even swallowed a camera, and they have not found any source of GI bleeding but he received blood transfusion last year for the same problem. Since he was feeling weak and tired again, he called his primary care provider to have blood work performed. He had it done this morning and he was called and told that he had a hemoglobin of 7 and that he needed to come to the emergency department. He denies any exacerbating or alleviating factors. [facility] Medical History Thyrotoxicosis Iron deficiency anemia due to chronic blood loss Wears hearing aid Wears glasses Alcohol use Burning pain Arthritis Self-catheterizes urinary bladder Prostate disease Anemia High cholesterol Restless legs Back pain Syncope Difficulty swallowing COPD (chronic obstructive pulmonary disease) Shortness of breath on exertion History of pain when walking History of edema History of echocardiogram History of stress test Cardiology follow-up encounter History of cardioversion Obesity New onset atrial fibrillation (03/14/21) BPH (benign prostatic hyperplasia) Tobacco dependence Essential hypertension Hyperlipidemia Home Medications ?Medication ?Instructions ?Recorded ?Last Taken ?Type atorvastatin 40 mg tablet 40 mg PO QHS 03/18/21 01/16/25 History docusate sodium 100 mg capsule 100 mg PO BID 07/01/23 01/17/25 History metoprolol tartrate 25 mg tablet 25 mg PO BID 01/11/24 01/17/25 History apixaban 2.5 mg tablet (Eliquis) 2.5 mg PO BID 03/06/24 01/17/25 History sitagliptin phosphate 50 mg tablet 50 mg PO DAILY Control sugar level 12/13/24 01/16/25 History finasteride 5 mg tablet 5 mg PO DAILY 01/17/25 01/16/25 History Allergy/AdvReac Type Severity Reaction Status Date / Time No Known Allergies Allergy Verified 01/17/25 19:43 Family History Mother Heart disease Hypertension Thyroid disorder Father Heart disease Brother Hypertension Surgical History Hx of right cataract extraction Hx of left cataract extraction History of transurethral resection of prostate History of appendectomy Social History household members: spouse housing: house Smoking Status: Former smoker quit date: 02/26/21 alcohol intake: current alcohol intake frequency: a few times a month ROS Constitutional Constitutional: Denies fatigue, fever(s), poor appetite, weight gain or weight loss Gastrointestinal Gastrointestinal: Denies belching, bloating, change in bowel habits, change in stool character, chewing difficulty, coffee ground emesis, constipation, cramping, diarrhea, dyspepsia, dysphagia, early satiety, excessive flatus, fecal incontinence, heartburn, hematemesis, hematochezia, hemorrhoids, loose stools, melena, nausea, odynophagia, rectal bleeding, tenesmus, vomiting or weight changes Physical Exam Const alert, oriented x3, no apparent distress and healthy appearing General Appearance: cooperative GI normal to inspection, nondistended, normoactive bowel sounds, soft to palpation, non-tender and non-distended Percussion: normal to percussion Rectal Exam: deferred Lab / Micro Data 01/18/25 09:00 01/18/25 03:31 Labs: Laboratory Results - last 24 hr 01/17/25 17:35: Blood Type O POSITIVE, Antibody Screen NEGATIVE, Crossmatch See Detail 01/17/25 17:43: WBC 5.4, RBC 1.89 L, Hgb 6.2 L, Hct 20.5 L, MCV 108.5 H, MCH 32.8 H, MCHC 30.2 L, RDW Std Deviation 60.0 H, RDW Coeff of Christina 15.4 H, Plt Count 128 L, MPV 11.5 01/17/25 18:09: Sodium 139, Potassium 4.4, Chloride 107, Carbon Dioxide 22.8, Anion Gap 10, BUN 26 H, Creatinine 1.09, Estim Creat Clear Calc 67.93, Est GFR (MDRD) Non-Af 68, BUN/Creatinine Ratio 23.5 H, Glucose 107 H, Calcium 8.3 01/18/25 03:31: WBC 5.2, RBC 2.50 L, Hgb 7.9 L, Hct 24.8 L, MCV 99.2 H D, MCH 31.6, MCHC 31.9 L D, RDW Std Deviation 66.4 H, RDW Coeff of Christina 19.0 H, Plt Count 113 L, MPV 11.3, Neut % (Auto) Not Reportable, Absolute Neuts (auto) 3.3, Absolute Lymphs (auto) 1.29, Total Counted 100, Neutrophils % (Manual) 60, Band Neutrophils % 4, Lymphocytes % (Manual) 25, Monocytes % (Manual) 2, Eosinophils % (Manual) 3, Metamyelocytes % 1, Myelocytes % 5 H, Platelet Estimate SLT DEC, Anisocytosis RARE, PT 14.9, INR 1.1, Sodium 140, Potassium 3.9, Chloride 108, Carbon Dioxide 21.7, Anion Gap 10, BUN 20 H, Creatinine 0.92, Estim Creat Clear Calc 78.84, Est GFR (MDRD) Non-Af 84, BUN/Creatinine Ratio 21.8 H, Glucose 94, Calcium 8.2 01/18/25 06:42: POC Glucose 91 01/18/25 09:00: Hgb 7.7 L, Hct 24.4 L Micro: Microbiology 01/17/25 18:28 Stool Stool Occult Blood (FANNY) - Final Occult Blood Positive Assessment & Plan Assessment/Plan (1) Symptomatic anemia: PLAN: Plan # 79-year-old gentleman on Eliquis secondary to history of atrial fibrillation with symptomatic anemia with concern for GI bleed. Patient will undergo an upper endoscopy to evaluate upper GI tract. He was explained alternatives, risk and benefits include not withstanding bleeding, infection, sepsis, perforation, need for emergent . He will have an ASA of 3. Charges/Coding Visit Charges Inpatient E&M: 88594 Init Hosp L3
--- NOTE | 2025-01-18 12:17 | PCM.PRE.AN2 ---
ASA Classification* ASA Classification ASA Classification: 3 Assessment & Plan Anesthesia* Anesthesia Assessment Anesthesia Assessment: Discussed sedation and/or anesthesia options, risks, benefits, and alternatives with patient/parents/legal guardian/POA. Questions invited. The patient/parents/legal guardian/POA seems to understand and agrees to proceed with anesthesia plan. Reviewed the physical assessment, medical history, allergy history and patient home medications list prior to surgery/procedure/anesthetic and documented any changes. Performed airway and anesthesia risk assessments. Anesthesia Type Anesthesia Type: MAC History Source History Obtained from:: Patient and Chart Anesthesia Focused Assessment* Temperature: 97.9 F Pulse Rate: 70 Blood Pressure: 102/60 Respiratory Rate: 14 Pulse Ox: 98 Airway Assessment Mouth opens: >3 cm Mallampati Score: II Labs Anesthesia Preop lab: CBC WBC 5.2 K/mm3 (4.4-11.0) 01/18/25 03:01/18/25 RBC 2.50 M/mm3 (4.6-6.2) L 01/18/25 03:01/18/25 Hgb 7.7 g/dL (13.0-16.5) L 01/18/25 09:00 01/18/25 Hct 24.4 % (40-54) L 01/18/25 09:00 01/18/25 Plt Count 113 K/mm3 (150-450) L 01/18/25 03:31 01/18/25 CHEMISTRY Potassium 3.9 mmol/L (3.3-5.1) 01/18/25 03:01/18/25 Sodium 140 mmol/L (133-145) 01/18/25 03:01/18/25 BUN 20 mg/dL (4-19) H 01/18/25 03:31 01/18/25 Creatinine 0.92 mg/dL (0.70-1.20) 01/18/25 03:01/18/25 Glucose 94 mg/dL (70-99) 01/18/25 03:01/18/25 POC Glucose 91 mg/dL (74-106) 01/18/25 06:42 01/18/25 TSH 2.840 uIU/mL (0.300-4.200) 08/30/24 13:04 08/30/24 COAG PT 14.9 SECONDS (11.7-14.9) 01/18/25 03:31 01/18/25 Pre-Assessment Diagnosis/Proposed Procedure Planned Operative Procedure(s): EGD Anesthesia History Anesthesia History - disk sharpener: Anesthesia History - disk sharpener Hx Hospitalization No 10/19/23 08:46 Any Problems With Anesthesia No 11/05/23 05:08 Cholinesterase deficiency No 11/05/23 05:08 You/Your Family Experience No 11/05/23 05:08 fever (hyperthermia) with Relationship Recent Exposure to Contagious No 11/05/23 05:08 Disease Does patient have nerve No 11/05/23 05:08 stimulator Patient instructed to have device shut off --Does patient have Pacemaker No 01/18/25 07:34 or ICD? When Was Last Pacemaker Check QUESTION #4 FULL TEXT: You/Your Family Experience fever (hyperthermia) with Anesthesia Last Oral Intake Last Oral intake: Last Oral Intake NPO since 00:00 01/18/25 07:34 Meds taken in AM with sips of water? Meds patient instructed to take am of surgery PONV PONV - disk sharpener: PONV - disk sharpener Female HX of Motion Sickness HX of N/V After Surgery Non-Smoker Duration of Surgery greater than 60 minutes Number of Risk Factors PONV Score Height & Weight Height & Weight: Anesthesia: Height & Weight Height 6 ft 01/18/25 11:25 Weight: 104.9 kg 01/18/25 11:25 Body Mass Index (BMI) 31.4 01/18/25 07:34 Respiratory Assessment Respiratory Assessment - disk sharpener: Respiratory Tract Infection Hx - disk sharpener Hx Respiratory Tract Infection No 11/05/23 05:08 STOP Sleep Apnea STOP Sleep Apnea - disk sharpener: STOP Sleep Apnea - disk sharpener Hx Hypertension No 01/17/25 21:21 Hx Sleep Apnea Yes 01/17/25 21:21 CPAP Yes 01/17/25 21:21 BIPAP No 01/17/25 21:21 Do you snore loudly (louder than talking or can be heard Do you often feel tired/ fatigued/ sleepy during daytime? Has anyone observed you stop breathing during sleep? STOP Results Positive 01/17/25 21:21 QUESTION #5 FULL TEXT : Do you snore loudly (louder than talking or can be heard through closed doors)? 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 Specify any problems Hx of Preganancy in last 3 N/A 01/17/25 21:21 Months Nurse Filling Out Transfusion AREAD 01/17/25 21:21 & Questions: Date: 01/17/25 01/17/25 21:21 Time: 21:27 01/17/25 21:21 Patient unable to answer at this time (ie. confused, unrespo /Reproduction History /Reproductive History - disk sharpener: /Reproductive Hx- disk sharpener Hx Now Gestational Age (in weeks): EDC: Hx Hx Para Hx Section SAB No 11/05/23 05:08 Active Medications Active Medications: Current Medications Generic Name Dose Route Start Last Admin Trade Name Freq PRN Reason Stop Dose Admin Acetaminophen 650 mg 01/17/25 21:02 Acetaminophen 325 Mg Tablet PO Q6H PRN PRN Pain 1-10 Or Fever >100.7 Albuterol Sulfate 2.5 mg 01/17/25 21:02 Albuterol 2.5 Mg/3 Ml Vial.Neb. INHALATION Q2H PRN PRN SOB &/OR WHEEZING Atorvastatin Calcium 40 mg 01/17/25 22:00 01/17/25 22:50 Atorvastatin Calcium 40 Mg Tablet PO 40 mg QHS DANIELLE Administration Docusate Sodium 100 mg 01/17/25 22:00 01/18/25 11:40 Docusate Sodium 100 Mg Capsule PO Not Given BID DANIELLE Finasteride 5 mg 01/18/25 10:00 Finasteride 5 Mg Tablet PO DAILY DANIELLE Glucagon 1 mg 01/17/25 21:02 Glucagon 1 Mg/Ml Syringe IM X1 PRN HYPOGLYCEMIA Protocol Dextrose 250 mls @ 0 mls/hr 01/17/25 21:02 Dextrose 10%-Water IV .Q0M PRN HYPOGLYCEMIA Protocol As Directed Pantoprazole Sodium 40 mg/ 100 mls @ 300 mls/hr 01/18/25 10:00 Sodium Chloride IV Q12 DANIELLE Sodium Chloride 250 mls @ 15 mls/hr 01/17/25 21:32 IV .[id number] PRN Saline Flush Sodium Chloride 250 mls @ 15 mls/hr 01/17/25 21:32 IV .[id number] PRN Additional IVPB Infusion Lactated Ringer's 1,000 mls @ 15 mls/hr 01/18/25 12:00 01/18/25 11:48 IV 15 mls/hr .Q48H DANIELLE Administration Insulin Human Lispro 0 unit 01/18/25 07:00 01/18/25 06:53 Insulin Lispro 100 Unit/Ml Insuln.Pen SC Not Given TIDAC [facility] Protocol Melatonin 10 mg 01/17/25 21:02 Melatonin 3 Mg Tablet PO QHS PRN PRN INSOMNIA Metoprolol Tartrate 12.5 mg 01/17/25 22:00 01/18/25 11:40 Metoprolol Tartrate 25 Mg Tablet PO Not Given BID [facility] Protocol Ondansetron HCl 4 mg 01/17/25 21:02 Ondansetron 4 Mg/2 Ml Vial IV Q8H PRN PRN NAUSEA/VOMITING Sodium Chloride 10 - 40 ml 01/17/25 21:32 0.9% Saline Lock 10 Ml Syringe IV UD PRN SALINE FLUSH PFSH Medical History Thyrotoxicosis Iron deficiency anemia due to chronic blood loss Wears hearing aid Wears glasses Alcohol use Burning pain Arthritis Self-catheterizes urinary bladder Prostate disease Anemia High cholesterol Restless legs Back pain Syncope Difficulty swallowing COPD (chronic obstructive pulmonary disease) Shortness of breath on exertion History of pain when walking History of edema History of echocardiogram History of stress test Cardiology follow-up encounter History of cardioversion Obesity New onset atrial fibrillation (03/14/21) BPH (benign prostatic hyperplasia) Tobacco dependence Essential hypertension Hyperlipidemia Home Medications ?Medication ?Instructions ?Recorded ?Last Taken ?Type atorvastatin 40 mg tablet 40 mg PO QHS 03/18/21 01/16/25 History docusate sodium 100 mg capsule 100 mg PO BID 07/01/23 01/17/25 History metoprolol tartrate 25 mg tablet 25 mg PO BID 01/11/24 01/17/25 History apixaban 2.5 mg tablet (Eliquis) 2.5 mg PO BID 03/06/24 01/17/25 History sitagliptin phosphate 50 mg tablet 50 mg PO DAILY Control sugar level 12/13/24 01/16/25 History finasteride 5 mg tablet 5 mg PO DAILY 01/17/25 01/16/25 History Allergy/AdvReac Type Severity Reaction Status Date / Time No Known Allergies Allergy Verified 01/17/25 19:43 Family History Mother Heart disease Hypertension Thyroid disorder Father Heart disease Brother Hypertension Surgical History Hx of right cataract extraction Hx of left cataract extraction History of transurethral resection of prostate History of appendectomy Social History household members: spouse housing: house Smoking Status: Former smoker quit date: 02/26/21 alcohol intake: current alcohol intake frequency: a few times a month Review of Systems (Anesthesia) ROS Narrative System reviewed and no additional complaints, except as documented.
--- NOTE | 2025-01-18 12:47 | OP.EGD_ITS ---
Patient Name: Aj Serrano Procedure Date: 01/18/2025 12:20 PM Date of : 1945 Age: 79 Procedure: Upper GI endoscopy Indications: Iron deficiency anemia, Suspected upper gastrointestinal bleeding Providers: Kaushal Jarvis DO Medicines: Monitored Anesthesia Care Patient Profile: This is an 79 year old male. Refer to note in patient chart for documentation of history and physical. Patient has symptoms. Complications: No immediate complications. Procedure: Pre-Anesthesia Assessment: - Prior to the procedure, a History and Physical was performed, and patient medications and allergies were reviewed. The patient is competent. The risks and benefits of the procedure and the sedation options and risks were discussed with the patient. All questions were answered and informed consent was obtained. Patient identification and proposed procedure were verified by the physician in the pre-procedure area. Mental Status Examination: alert and oriented. Airway Examination: normal oropharyngeal airway and neck mobility. Respiratory Examination: clear to auscultation. CV Examination: normal. Prophylactic Antibiotics: The patient does not require prophylactic antibiotics. Prior Anticoagulants: The patient has taken Eliquis (apixaban), last dose was 1 day prior to procedure. ASA Grade Assessment: II - A patient with mild systemic disease. After reviewing the risks and benefits, the patient was deemed in satisfactory condition to undergo the procedure. The anesthesia plan was to use monitored anesthesia care (MAC). Immediately prior to administration of medications, the patient was re-assessed for adequacy to receive sedatives. The heart rate, respiratory rate, oxygen saturations, blood pressure, adequacy of pulmonary ventilation, and response to care were monitored throughout the procedure. The physical status of the patient was re-assessed after the procedure. After obtaining informed consent, the endoscope was passed under direct vision. Throughout the procedure, the patient's blood pressure, pulse, and oxygen saturations were monitored continuously. The Colonoscope was introduced through the mouth, and advanced to the jejunum. Small bowel enteroscopy was deemed necessary. The upper GI endoscopy was accomplished without difficulty. The patient tolerated the procedure well. Scope In: 12:29:33 PM Scope Out: 12:36:15 PM Total Procedure Duration Time 0 hours 6 minutes 42 seconds Findings: The examined esophagus was normal. No gross lesions were noted in the entire examined stomach. No gross lesions were noted in the entire examined duodenum. A few 5 mm angiodysplastic lesions without bleeding were found in the jejunum. Coagulation for bleeding prevention using heater probe was successful. Estimated blood loss was minimal. Impression: - Normal esophagus. - No gross lesions in the entire stomach. - No gross lesions in the entire examined duodenum. - A few non-bleeding angiodysplastic lesions in the jejunum. Treated with a heater probe. - No specimens collected. Recommendation: - Resume regular diet. - Continue present medications. Procedure Code(s): --- Professional --- 03816, Small intestinal endoscopy, enteroscopy beyond second portion of duodenum, not including ileum; with control of bleeding (eg, injection, bipolar cautery, unipolar cautery, laser, heater probe, stapler, plasma pastry artist) CPT copyright 2021 [employer]. All rights reserved. The codes documented in this report are preliminary and upon ladies' locker room attendant review may be revised to meet current compliance requirements. Kaushal Jarvis DO 01/18/2025 12:46:41 PM This report has been signed electronically. Number of Addenda: 0 Note Initiated On: 01/18/2025 12:20 PM
--- NOTE | 2025-01-18 12:49 | PCM.POST.ANE ---
Anesthesia: Postop Eval I Current Vital Signs Temperature: 97.7 F Pulse Rate: 79 Blood Pressure: 106/71 Respiratory Rate: 14 Pulse Ox: 97 Oxygen Delivery Method: Room Air Assessment Airway patent: Yes Spontaneous unlabored respirations: Yes Mental status: Asleep nausea: No Vomiting: No Anesthesia Complication: No Fluid Hydration Crystalloid volume administer (ml): 300 Total IV fluid infused: 300 Progress Note Anesthesia document: Postop Eval 1 completed: Yes
[2025-01-18] MEDS: Sodium Ferric Gluconat/Sucrose 250 MG in 0.9% Normal Saline (250mL Bag) 250 ML 135 MG IV (14:17)
[2025-01-18 15:32] LABS: Hematocrit 23.8 % (40-54); Hemoglobin 7.5 g/dL (13.0-16.5)
--- NOTE | 2025-01-18 20:30 | PCM.PN.HOSP ---
Reason for Visit Chief Complaint: Shortness of breath, weak, lightheaded Subjective Subjective Patient was seen and examined today, his last hemoglobin at around 12 noon today was 7.5, patient underwent an EGD which showed a normal esophagus, no gross lesions in the entire stomach, no gross lesions in the duodenum, there were few nonbleeding angiodysplastic lesions in the jejunum which were treated with a heater probe. Patient's lab will be rechecked tomorrow. Objective Data Objective Data Vital Signs: Vital Signs Temp Pulse Resp BP Pulse Ox O2 Del Method O2 Flow Rate 97.7 F L 76 16 94/64 100 Room Air 2 01/18/25 12:55 01/18/25 12:55 01/18/25 12:55 01/18/25 12:55 01/18/25 12:55 01/18/25 12:55 01/18/25 12:50 Oxygen Flow Rate (L/min) 2 Oxygen Delivery Method Room Air Weight: 104.9 kg Body Mass Index (BMI) 31.4 Intake & Output: Intake and Output for Last 24 Hours 01/16/25 01/17/25 01/18/25 23:59 23:59 23:59 Intake Total 435 / 885 1520 / 1520 Output Total 1152 / 1152 Balance 435 / -265 368 / 368 Lab / Micro Data 01/19/25 06:25 01/18/25 03:31 Labs: Laboratory Results - last 24 hr 01/17/25 17:35: Blood Type O POSITIVE, Antibody Screen NEGATIVE, Crossmatch See Detail 01/18/25 03:31: WBC 5.2, RBC 2.50 L, Hgb 7.9 L, Hct 24.8 L, MCV 99.2 H D, MCH 31.6, MCHC 31.9 L D, RDW Std Deviation 66.4 H, RDW Coeff of Christina 19.0 H, Plt Count 113 L, MPV 11.3, Neut % (Auto) Not Reportable, Absolute Neuts (auto) 3.3, Absolute Lymphs (auto) 1.29, Total Counted 100, Neutrophils % (Manual) 60, Band Neutrophils % 4, Lymphocytes % (Manual) 25, Monocytes % (Manual) 2, Eosinophils % (Manual) 3, Metamyelocytes % 1, Myelocytes % 5 H, Platelet Estimate SLT DEC, Anisocytosis RARE, PT 14.9, INR 1.1, Sodium 140, Potassium 3.9, Chloride 108, Carbon Dioxide 21.7, Anion Gap 10, BUN 20 H, Creatinine 0.92, Estim Creat Clear Calc 78.84, Est GFR (MDRD) Non-Af 84, BUN/Creatinine Ratio 21.8 H, Glucose 94, Calcium 8.2 01/18/25 06:42: POC Glucose 91 01/18/25 09:00: Hgb 7.7 L, Hct 24.4 L 01/18/25 13:10: POC Glucose 99 01/18/25 14:46: Hgb 7.5 L, Hct 23.8 L 01/18/25 17:30: POC Glucose 106 Micro: Microbiology 01/17/25 18:28 Stool Stool Occult Blood (FANNY) - Final Occult Blood Positive Physical Exam Const alert, oriented x3, no apparent distress and healthy appearing General Appearance: cooperative, well kempt and well developed Orientation / Consciousness: awake, oriented to person, oriented to place and oriented to time HEENT normocephalic, head/scalp atraumatic and moist oral mucous membranes Eyes PERRL, EOMs intact bilaterally and conjunctivae normal Neck supple, no JVD, thyroid normal and no carotid bruits General: trachea midline Resp normal respiratory effort, no retractions, no use of accessory muscles and clear to auscultation bilaterally Auscultation: Negative for rales, rhonchi or wheezes Cardio S1 normal heart sound, S2 normal heart sound, no murmurs, no rub and no gallops Cardio Narrative: Heart rate and rhythm is irregular GI normal to inspection, nondistended, normoactive bowel sounds, soft to palpation, non-tender and non-distended Extremity no clubbing, cyanosis or edema Skin no rashes or lesions noted General Skin Exam: no breakdown Neuro oriented x3, CN's II-XII intact bilaterally, moves all extremities, no focal motor deficits and no sensory deficits noted Sensorium / Orientation: awake and alert Speech: speech normal Psych affect normal Assessment & Plan Assessment/Plan (1) Symptomatic anemia: PLAN: Plan 1. Acute symptomatic anemia requiring blood transfusion from angiodysplastic lesions in the jejunum, exacerbated by use of Eliquis-treated with a heater probe, patient will remain on the same medications and will be reevaluated for discharge tomorrow #2 chronic atrial fibrillation-patient's Eliquis is being held due to his bleeding #3 essential hypertension-patient will remain on his present medication #4 chronic use of anticoagulant due to atrial fibrillation-again patient will remain off Eliquis for now Total clinical time spent by myself addressing the patient's medical issues, reviewing all of his data, and collaborating with patient's care team: 35 minutes Charges/Coding Visit Charges Inpatient E&M: 87780 Subs Hosp L2
[2025-01-18] MEDS: Pantoprazole Sodium 40 MG in 0.9% Normal Saline (100mL MB+) 100 ML 300 MG IV (22:53)
[2025-01-18] MEDS: MELATONIN 3 MG TABLET 10 MG PO (23:15)
[2025-01-19] VITALS (7 sets, daily range): BP systolic 102–113; BP diastolic 68–72; PULSE 73–90; RESP 16–18; TEMP 36.2–36.9; O2SAT 95–96
[2025-01-19 06:46] LABS: Differential Indicated MANUAL DIFF; Hematocrit 23.9 % (40-54); Hemoglobin 7.4 g/dL (13.0-16.5); Mean Corp Hgb Conc 31.0 g/dL (32-36); Mean Corpuscular Volume 103.0 fL (80-94); Mean Platelet Vol. 11.9 fl (6.2-12.0); POSITIVE COUNT YES; POSITIVE MORPHOLOGY YES; Platelet Count 113 K/mm3 (150-450); RBC Distribution Width CV 19.8 % (11.6-14.6); RBC Distribution Width SD 72.3 fl (35.1-43.9); Red Blood Count 2.32 M/mm3 (4.6-6.2); White Blood Count 5.5 K/mm3 (4.4-11.0)
[2025-01-19 07:49] LABS: Neutrophil-Segmented 73 % (47-70); Total Cells Counted 100 (MANUAL DIFF)
[2025-01-19 07:50] LABS: Anisocytosis 1+; Polychromasia 2+
[2025-01-19] MEDS: 0.9% Saline Lock 10 ML Syringe IV (08:57)
[2025-01-19] MEDS: Pantoprazole Sodium 40 MG in 0.9% Normal Saline (100mL MB+) 100 ML 300 MG IV (09:04)
--- NOTE | 2025-01-19 10:58 | DCINST_ITS ---
Discharge Instructions DC O2, CPAP, BIPAP needs Home O2 Discharge instructions: No Dressing / Incision Discharge Activity: Return to Normal Activity Follow Up Care Test Results: Test results from this visit will be discussed in further detail at your follow- up appointment, if applicable. Discharge Plan Admission Admit Date/Time: 01/17/25 18:42 Primary Reason for Your Visit: Upper GI bleed from AVM Attending Provider: Maninder Cooper Primary Care Provider: Reema Myers Consulting Providers: Wen Ortega Discharge Orders/Prescriptions Prescriptions: New pantoprazole [Protonix] 40 mg tablet,delayed release (DR/EC) 40 mg PO DAILY Qty: 30 0RF Continued atorvastatin 40 mg tablet 40 mg PO QHS docusate sodium 100 mg capsule 100 mg PO BID sitagliptin phosphate 50 mg tablet 50 mg PO DAILY finasteride 5 mg tablet 5 mg PO DAILY metoprolol tartrate 25 mg tablet 25 mg PO BID Held Eliquis 2.5 mg tablet 2.5 mg PO BID Hold Instructions: Resume on 01/22/25. Hold Eliquis until 01/22/2025 and then resume it Referrals / Follow Up: Reema Myers MD [Primary Care Provider] - See Referral Note (In 1 week, have her order another CBC on you) Disposition Disposition (needs filled in before D/C Order can be placed): Home, Self Care
--- NOTE | 2025-01-19 11:13 | DS.PCM_ITS ---
Providers Date of Admission: 01/17/25 Date of Discharge: 01/19/25 Primary Care Physician: Dr. Reema Myers MD Consultations 01/17/25 21:02 Consult: Gastroenterology Routine Consulting Provider: [facility] Reason for Consult: hgb 6.2, concern for GIB EMERGENT Consult: No MD Notified: Yes Date Notified: 01/17/25 Time Notified: 06:47 Method of Notification: Text Reason For Visit: SYMPTOMATIC ANEMIA, CONCERN FOR GI BLEED Diagnosis Discharge Diagnosis (1) Symptomatic anemia: Status: Acute Code(s): D64.9 - Anemia, unspecified Plan 1. Acute symptomatic anemia requiring blood transfusion from angiodysplastic lesions in the jejunum, exacerbated by use of Eliquis-treated with a heater probe, patient will remain on the same medications and will be reevaluated for discharge tomorrow #2 chronic atrial fibrillation-patient's Eliquis is being held due to his bleeding #3 essential hypertension-patient will remain on his present medication #4 chronic use of anticoagulant due to atrial fibrillation-again patient will remain off Eliquis for now Medications at Discharge Home Medications atorvastatin 40 mg tablet 40 mg PO QHS 03/18/21 docusate sodium 100 mg capsule 100 mg PO BID 07/01/23 metoprolol tartrate 25 mg tablet 25 mg PO BID 01/11/24 apixaban 2.5 mg tablet (Eliquis) 2.5 mg PO BID 03/06/24 Held on 01/19/25. Instructions: Resume on 01/22/25. Hold Eliquis until 01/22/2025 and then resume it sitagliptin phosphate 50 mg tablet 50 mg PO DAILY Control sugar level 12/13/24 finasteride 5 mg tablet 5 mg PO DAILY 01/17/25 pantoprazole 40 mg tablet,delayed release (Protonix) 40 mg PO DAILY #30 tabs 01/19/25 Hospital Course Operations None Procedures Blood transfusion and EGD Summary of Care Provided Minutes Spent on Discharge: 31 Hospital Course: This 79-year-old white male was seen in the emergency room at [facility] with complaints of generalized weakness and shortness of breath. He had a past history of blood transfusions in the past due to suspected GI bleeding. Patient had hemoglobin done today and his hemoglobin was 7. Patient states he has been worked up in the past for GI bleeds with 2 colonoscopies and a capsule endoscopy and they have not found any source of GI bleeding. Patient was admitted to PCU, he was transfused packed red blood cells and his hemoglobin was monitored. Patient underwent an EGD which revealed angiodysplastic lesions in the jejunum, these were not bleeding but were treated with a heater probe. Patient was kept off his Eliquis. On 01/19/2025, patient was seen and examined: On examination he appeared in good health and spirits. Vital signs as documented. Skin warm and dry and without overt rashes. Neck without JVD, neck was supple, trachea midline, thyroid was normal. Lungs clear bilaterally, normal air movement was noted. Heart exam notable for irregular rhythm, normal sounds and absence of murmurs, rubs or gallops. Abdomen unremarkable and without evidence of organomegaly, masses, or abdominal aortic enlargement. Bowel sounds are present, abdomen is not distended. Extremities nonedematous, no cyanosis was noted, no clubbing was noted. Neuro: Cranial nerves II through XII are grossly intact, no focal motor deficits were noted, sensation to light touch and pinprick intact, motor exam 5/5 throughout. Psych: Patient is alert and oriented x3, he does not appear anxious or depressed, he does not appear agitated. Patient appears stable for discharge home on 01/19/2025. Weight / BMI Weight Weight: 104.9 kg Body Mass Index (BMI) 31.4 ABG / Lab / Microbiology Data 01/19/25 06:25 01/18/25 03:31 Laboratory: Laboratory Results - last 24 hr 01/18/25 13:10: POC Glucose 99 01/18/25 14:46: Hgb 7.5 L, Hct 23.8 L 01/18/25 17:30: POC Glucose 106 01/19/25 06:00: POC Glucose 95 01/19/25 06:25: WBC 5.5, RBC 2.32 L, Hgb 7.4 L, Hct 23.9 L, MCV 103.0 H, MCH 31.9, MCHC 31.0 L, RDW Std Deviation 72.3 H, RDW Coeff of Christina 19.8 H, Plt Count 113 L, MPV 11.9, Neut % (Auto) Not Reportable, Absolute Neuts (auto) 4.0, A bsolute Lymphs (auto) 0.50 L, Total Counted 100, Neutrophils % (Manual) 73 H, L ymphocytes % (Manual) 9 L, Monocytes % (Manual) 6, Eosinophils % (Manual) 7 H, Basophils % (Manual) 1, Metamyelocytes % 3 H, Myelocytes % 1 H, Diff Path Review May foll, Platelet Estimate SLT DEC, Plt Morphology Comment LARGE, Polychromasia 2+, Anisocytosis 1+, Ovalocytes 1+ Microbiology: Microbiology 01/17/25 18:28 Stool Stool Occult Blood (FANNY) - Final Occult Blood Positive D/C Instructions DC O2, CPAP, BIPAP Needs Home O2 Discharge instructions: No Meaningful Use Info Meaningful Use Meaningful Use Diagnoses (Choose all that apply): None applicable Discharge Plan Admission Admit Date/Time: 01/17/25 18:42 Primary Reason for Your Visit: Upper GI bleed from AVM Attending Provider: Maninder Cooper Primary Care Provider: Reema Myers Consulting Providers: Wen Ortega Discharge Orders/Prescriptions Prescriptions: New pantoprazole [Protonix] 40 mg tablet,delayed release (DR/EC) 40 mg PO DAILY Qty: 30 0RF Continued atorvastatin 40 mg tablet 40 mg PO QHS docusate sodium 100 mg capsule 100 mg PO BID sitagliptin phosphate 50 mg tablet 50 mg PO DAILY finasteride 5 mg tablet 5 mg PO DAILY metoprolol tartrate 25 mg tablet 25 mg PO BID Held Eliquis 2.5 mg tablet 2.5 mg PO BID Hold Instructions: Resume on 01/22/25. Hold Eliquis until 01/22/2025 and then resume it Referrals / Follow Up: Reema Myers MD [Primary Care Provider] - See Referral Note (In 1 week, have her order another CBC on you) Disposition Disposition (needs filled in before D/C Order can be placed): Home, Self Care Charges/Coding Visit Charges Inpatient E&M: 43514 Disch Hosp >30min
--- NOTE | 2025-01-19 11:38 | CASEMGMT ---
Patient has order for discharge. RN CM in to discuss needs at discharge. Patient denies needs or help at discharge. Patient had no further questions or concerns.
== END 2025-01-19 12:28 | disposition home or self-care (01) | DRG 378 ==
LOC: ED 19:05 → PCU 20:25
PROVIDERS: Internal Medicine Gastroenterology; Admitting Provider Internal Medicine; Emergency Provider Emergency Medicine; PCP Family Medicine; Referring Provider Emergency Medicine; Visit Provider Internal Medicine
PROC: 0DJ08ZZ Inspection of Upper Intestinal Tract, Via Natural or Artificial Opening Endoscopic (ICD-10-PCS; CPT 43235; principal; 2025-01-18 12:25)
DX: K92.2 Gastrointestinal hemorrhage, unspecified (principal); D68.32 Hemorrhagic disorder due to extrinsic circulating 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; N13.8 Other obstructive and reflux uropathy; E11.9 Type 2 diabetes mellitus without complications; D50.0 Iron deficiency anemia secondary to blood loss (chronic); E78.00 Pure hypercholesterolemia, unspecified; J44.9 Chronic obstructive pulmonary disease, unspecified; I10 Essential (primary) hypertension; I48.0 Paroxysmal atrial fibrillation; K31.819 Angiodysplasia of stomach and duodenum without bleeding; Z79.4 Long term (current) use of insulin; T45.515A Adverse effect of 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, initial encounter; N40.1 Benign prostatic hyperplasia with lower urinary tract symptoms; Z79.01 Long term (current) use of 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; Z79.899 Other long term (current) drug therapy; Z87.891 Personal history of nicotine dependence
CPT/HCPCS: 36415; 80048; 82274; 82962; 83880; 85014; 85018; 85025; 85027; 85610; 86850; 86900; 86901; 93005; 99283; C1889; P9016; P9040; A4216; J2405; J2916

== ENCOUNTER → 2025-01-17 | Outpatient (CLI) | payer MEDICARE, OTHER, SELFPAY ==
[2025-01-17 13:56] LABS: Hematocrit 23.6 % (40-54); Hemoglobin 7.2 g/dL (13.0-16.5); Mean Corp Hgb Conc 30.5 g/dL (32-36); Mean Corpuscular Volume 111.3 fL (80-94); Mean Platelet Vol. 12.2 fl (6.2-12.0); POSITIVE COUNT YES; POSITIVE MORPHOLOGY YES; Platelet Count 139 K/mm3 (150-450); RBC Distribution Width CV 15.5 % (11.6-14.6); RBC Distribution Width SD 61.6 fl (35.1-43.9); Red Blood Count 2.12 M/mm3 (4.6-6.2); White Blood Count 6.3 K/mm3 (4.4-11.0)
[2025-01-17 13:58] LABS: Differential Indicated MANUAL DIFF
[2025-01-17 14:35] LABS: Anion Gap 10 (5-15); BUN 25 mg/dL (4-19); BUN/Creat Ratio 25.0 RATIO (10-20); Calcium,Total 8.5 mg/dL (7.6-11.0); Carbon Dioxide 22.3 mmol/L (21.0-32.0); Chloride 107 mmol/L (98-108); Glucose 104 mg/dL (70-99); Potassium 4.1 mmol/L (3.3-5.1); Pro- Brain NATRIURETIC PEPTIDE 596 pg/mL (<=1800)
[2025-01-17 14:44] LABS: Neutrophil-Band 5 % (0-5); Neutrophil-Segmented 63 % (47-70); Total Cells Counted 100 (MANUAL DIFF)
[2025-01-17 14:45] LABS: Hypochromasia 1+
== END | disposition home or self-care (01) ==
LOC: LAB 12:49
PROVIDERS: PCP Family Medicine; Referring Provider Family Medicine; Visit Provider Family Medicine
DX: I48.91 Unspecified atrial fibrillation (principal); J44.9 Chronic obstructive pulmonary disease, unspecified; R73.01 Impaired fasting glucose; K92.2 Gastrointestinal hemorrhage, unspecified
CPT/HCPCS: 36415; 80048; 83880; 85025

== ENCOUNTER → 2025-01-25 | Outpatient (CLI) | payer MEDICARE, OTHER, SELFPAY ==
[2025-01-25 18:05] LABS: Hematocrit 31.0 % (40-54); Hemoglobin 9.1 g/dL (13.0-16.5); Mean Corp Hgb Conc 29.4 g/dL (32-36); Mean Corpuscular Volume 105.1 fL (80-94); Mean Platelet Vol. 11.8 fl (6.2-12.0); POSITIVE COUNT YES; POSITIVE MORPHOLOGY YES; Platelet Count 126 K/mm3 (150-450); RBC Distribution Width CV 17.1 % (11.6-14.6); RBC Distribution Width SD 65.8 fl (35.1-43.9); Red Blood Count 2.95 M/mm3 (4.6-6.2); White Blood Count 3.6 K/mm3 (4.4-11.0)
[2025-01-25 18:37] LABS: Differential Indicated MANUAL DIFF
[2025-01-25 18:42] LABS: Ferritin 49 ng/mL (37-417)
[2025-01-26 00:06] LABS: Neutrophil-Band 5 % (0-5); Neutrophil-Segmented 49 % (47-70); Total Cells Counted 100 (MANUAL DIFF)
[2025-01-26 00:13] LABS: Anisocytosis 2+
[2025-01-26 00:14] LABS: Polychromasia 1+
== END | disposition home or self-care (01) ==
LOC: BFHLAB 16:16
PROVIDERS: PCP Family Medicine; Visit Provider Family Medicine
DX: K92.2 Gastrointestinal hemorrhage, unspecified (principal)
CPT/HCPCS: 36415; 82728; 85025

== ENCOUNTER 2025-04-27 11:03 | Emergency (ER) | payer MEDICARE, OTHER, SELFPAY ==
[2025-04-27] VITALS (10 sets, daily range): BP systolic 86–103; BP diastolic 38–65; PULSE 69–80; RESP 12–20; TEMP 36.4–36.6; O2SAT 98–100; BMI 30.4
--- NOTE | 2025-04-27 11:35 | EX.ED.DYSGE1 ---
HPI History of Present Illness Chief Complaint: Abn Labs Narrative Narrative: Patient is an 79-year-old male presenting to the emergency department for anemia that was noted outpatient on his labs done by the ME. He reports it was 7.7. Patient has a past medical history of thyrotoxicosis, sleep apnea, dark stools, A-fib on Eliquis, hypertension, hyperlipidemia and GI bleeds that have been worked up extensively with both EGDs and colonoscopies as well as a tagged red blood cell. Was most recently here in December for a GI bleed for which he was admitted due to significant drop in his hemoglobin. Patient states that when his hemoglobin is low he develops lightheadedness and shortness of breath intermittently. States this is present today. He denies any recent fever, chills, chest pain, abdominal pain, nausea, vomiting, diarrhea. States that his stools have been dark and tarry however states that he does take iron supplements. Denies any dysuria or hematuria. Denies any hemoptysis or hematemesis. Sees Dr. Jarvis, GI outpatient. Prior similar symptoms: Yes [facility] Medical History Symptomatic anemia Generalized weakness GI bleeding SOB (shortness of breath) Anemia requiring transfusions Thyrotoxicosis Iron deficiency anemia due to chronic blood loss Wears hearing aid Wears glasses Alcohol use Burning pain Arthritis Self-catheterizes urinary bladder Prostate disease Anemia High cholesterol Restless legs Back pain Syncope Difficulty swallowing COPD (chronic obstructive pulmonary disease) Shortness of breath on exertion History of pain when walking History of edema History of echocardiogram History of stress test Cardiology follow-up encounter History of cardioversion Obesity New onset atrial fibrillation (03/14/21) BPH (benign prostatic hyperplasia) Tobacco dependence Essential hypertension Hyperlipidemia Home Medications ?Medication ?Instructions ?Recorded ?Last Taken ?Type atorvastatin 40 mg tablet 40 mg PO QHS 03/18/21 01/16/25 History docusate sodium 100 mg capsule 100 mg PO BID 07/01/23 01/17/25 History metoprolol tartrate 25 mg tablet 25 mg PO BID 01/11/24 01/17/25 History apixaban 2.5 mg tablet (Eliquis) 2.5 mg PO BID 03/06/24 01/17/25 History Held on 01/19/25. Instructions: Resume on 01/22/25. Hold Eliquis until 01/22/2025 and then resume it sitagliptin phosphate 50 mg tablet 50 mg PO DAILY Control sugar level 12/13/24 01/16/25 History finasteride 5 mg tablet 5 mg PO DAILY 01/17/25 01/16/25 History pantoprazole 40 mg tablet,delayed 40 mg PO DAILY #30 tabs 01/19/25 Unknown Rx release (Protonix) albuterol sulfate 2.5 mg/3 mL 2.5 mg inhalation Q6H PRN 03/21/25 Unknown History (0.083 %) solution for nebulization albuterol sulfate 90 mcg/actuation 2 puff inhalation 6XD PRN 03/21/25 Unknown History aerosol inhaler (Ventolin HFA) budesonide 160 mcg-glycopyr 9 2 inh inhalation BID #10.7 grams 03/21/25 Unknown Rx mcg-formot 4.8 mcg/actuation HFA inhaler (Breztri Aerosphere) temazepam 15 mg capsule 15 mg PO QHS PRN 03/21/25 Unknown History ASV - Adaptive Servo Ventilation 04/09/25 Unknown History ([facility] INFORMATIONAL USE ONLY) Allergy/AdvReac Type Severity Reaction Status Date / Time No Known Allergies Allergy Verified 03/21/25 13:04 Family History Mother Heart disease Hypertension Thyroid disorder Father Heart disease Brother Hypertension Surgical History Hx of right cataract extraction Hx of left cataract extraction History of transurethral resection of prostate History of appendectomy Social History household members: spouse housing: house Smoking Status: Former smoker quit date: 02/26/21 alcohol intake: current alcohol intake frequency: a few times a month ROS ROS ED ROS Narrative see HPI EXAM Physical Exam Narrative Exam Narrative: Vital signs: Reviewed General: Alert and orientedx3. No acute distress HEENT: Head is normocephalic and atraumatic, sinuses nontender, pupils equal round and reactive. Nares are patent. Oropharynx and throat exams normal. Neck: Supple without lymphadenopathy nontender Cardiovascular: Regular rate and rhythm, no murmurs. No rubs or gallops. Normal S1 and S2 Respiratory: Clear to auscultation bilaterally. No wheezes, rales, rhonchi Abdominal: Soft and nontender. Normal bowel sounds. No guarding or rebound. Nonsurgical abdomen Extremities: No tenderness. No bruising. Normal range of motion. Normal sensation. Skin: Pallor of skin. No rash or redness. The rest of the physical exam is unremarkable Const Vital Signs: 04/27/25 11:04 04/27/25 11:38 04/27/25 12:17 Temperature 97.8 F Temperature Source Oral Pulse Rate 69 70 Respiratory Rate 18 12 Respiratory Pattern Normal Blood Pressure 103/38 L 86/55 L Blood Pressure Mean 59 65 Pulse Ox 100 100 Oxygen Delivery Method Room Air 04/27/25 12:42 04/27/25 12:46 04/27/25 13:53 Temperature 98 F Temperature Source Oral Pulse Rate 78 73 Respiratory Rate 16 18 Respiratory Pattern Blood Pressure 89/50 L 98/65 103/60 Blood Pressure Mean 63 76 74 Pulse Ox 100 98 Oxygen Delivery Method Room Air Room Air 04/27/25 14:00 04/27/25 14:08 04/27/25 15:08 Temperature 98 F 97.6 F L Temperature Source Oral Oral Pulse Rate 79 73 80 Respiratory Rate 20 H 18 18 Respiratory Pattern Blood Pressure 96/53 L 102/58 L 101/61 Blood Pressure Mean 67 72 74 Pulse Ox 98 98 98 Oxygen Delivery Method Room Air 04/27/25 15:47 04/27/25 15:49 Temperature 98 F Temperature Source Pulse Rate 70 70 Respiratory Rate 20 H 20 H Respiratory Pattern Blood Pressure 100/59 L 100/59 L Blood Pressure Mean 72 72 Pulse Ox 98 98 Oxygen Delivery Method MDM MDM MDM Narrative Medical decision making narrative: Patient is an 79-year-old male presenting to the emergency department for anemia on outpatient labs. Patient was seen and examined. Vitals are stable. He is not tachycardic, pulse is 69. Initial blood pressure slightly soft at 103/38. Patient resting bed comfortably no acute distress. Differential includes but is not limited to: Upper versus lower GI bleed, chronic anemia from iron deficiency or various other causes. CBC, BMP and type and screen was sent. GI note from 01/18/2025 was reviewed and shows a normal esophagus, no gross lesions in the stomach or duodenum. There were a few nonbleeding angiodysplastic lesions in the jejunum which were treated with heater probe. Last colonoscopy was done 11/05/2023 and showed nonbleeding external and internal hemorrhoids. Normal ileum. CBC with leukopenia which was present in December as well as acute on chronic anemia of 7.1. Thrombocytopenia of 122. Evidence of abnormal cell lines including an elevated blast cell however only 1%. BMP with no significant abnormalities. Patient was typed and screened for 1 unit. Informed consent was obtained. Patient was given 1 unit of PRBC and tolerated well. I did speak with Dr. Jarvis GI, who reviewed his past colonoscopy and EGD states he most likely does not need these repeated. Recommended outpatient tagged red blood cell study. Given the abnormal CBC I did recommend the patient follow-up with terminal system operator who he has seen before only once though for further workup. Patient and at bedside were updated on the findings. He is feeling improved after PRBC. Stable BP has been slightly low but maps in the 70s. Patient discharged from the Emergency Department. I do not feel that the patient's evaluation reveals any acute reason for admission at this time. I instructed them to either follow-up with their primary care physician or promptly return to the Emergency Department for reevaluation should symptoms worsen or new symptoms develop. I explained what symptoms would indicate the need to return to the emergency department. Shared decision making was used. The patient voiced understanding of the treatment plan and is agreeable with it. Clinical impression Acute on chronic anemia Thrombocytopenia Leukopenia History & Record Review Discussion w/independent historian: Patient and Significant other Additional record(s) reviewed:: Prior inpatient record, Prior ED visit and Prior labs Lab Data Attestation: I reviewed the patient's lab results. Labs: Laboratory Results - last 24 hr 04/27/25 04/27/25 04/27/25 11:45 12:03 13:35 WBC 3.5 L RBC 2.19 L Hgb 7.1 L Hct 25.0 L MCV 114.2 H MCH 32.4 H MCHC 28.4 L RDW Std Deviation 65.7 H RDW Coeff of Christina 15.9 H Plt Count 122 L MPV 12.6 H Neut % (Auto) Not Reportable Absolute Neuts (auto) 2.3 Absolute Lymphs (auto) 0.67 L Total Counted 100 Neutrophils % (Manual) 65 Band Neutrophils % 1 Lymphocytes % (Manual) 20 Monocytes % (Manual) 4 Eosinophils % (Manual) 1 Metamyelocytes % Not Reportable Myelocytes % 4 H Promyelocytes % 4 H Blast Cells % 1 H* Nucleated RBCs/100 WBC 4 Diff Path Review Reviewed Platelet Estimate SLT DEC Polychromasia RARE Anisocytosis 1+ PT 15.9 H INR 1.2 APTT 30.3 Sodium Cancelled 141 Potassium Cancelled 4.0 Chloride Cancelled 110 H Carbon Dioxide Cancelled 23.8 Anion Gap Cancelled 7 BUN Cancelled 23 H Creatinine Cancelled 0.87 Estim Creat Clear Calc Cancelled 82.13 Est GFR (MDRD) Non-Af Cancelled 87 BUN/Creatinine Ratio Cancelled 26.4 H Glucose Cancelled 106 H Calcium Cancelled 8.4 Blood Type Cancelled O POSITIVE Antibody Screen Cancelled NEGATIVE Crossmatch See Detail Discharge Plan Triage Chief Complaint: Abn Labs ED Provider: Kika Han Dx/Rx/DC Orders Clinical Impression: Acute on chronic anemia, Thrombocytopenia Instructions: Anemia, Thrombocytopenia Prescriptions: No Action atorvastatin 40 mg tablet 40 mg PO QHS docusate sodium 100 mg capsule 100 mg PO BID sitagliptin phosphate 50 mg tablet 50 mg PO DAILY temazepam 15 mg capsule 15 mg PO QHS PRN albuterol sulfate 2.5 mg /3 mL (0.083 %) solution for nebulization 2.5 mg inhalation Q6H PRN albuterol sulfate [Ventolin HFA] 90 mcg/actuation HFA aerosol inhaler 2 puff inhalation 6XD PRN Breztri Aerosphere 160-9-4.8 mcg/actuation HFA aerosol inhaler 2 inh inhalation BID Qty: 10.7 11RF (DME) ASV - Adaptive Servo Ventilation ([facility] INFORMATIONAL USE ONLY) See Rx Instructions .ROUTE .MEDSUPPLY Rx Instructions: ASV EEP 8, PSMAX- 17, PSMIN 6 DME- FRESHAIRE MASK- LARGE RESMED F20 FULL FACE MASK finasteride 5 mg tablet 5 mg PO DAILY pantoprazole [Protonix] 40 mg tablet,delayed release (DR/EC) 40 mg PO DAILY Qty: 30 0RF metoprolol tartrate 25 mg tablet 25 mg PO BID Eliquis 2.5 mg tablet 2.5 mg PO BID Primary Care Provider: Reema Myers Referrals: Reema Myers MD [Primary Care Provider, Family Practice] Tamie Coleman MD [Med Staff - Active Staff, Oncology] - As soon as possible FriendKaushal DO [Med Staff - Active Staff, Gastroenterology] - As soon as possible Activity Restrictions/Additional Instructions: I would recommend that you follow-up with the GI doctor and terminal system operator below as soon as possible for further workup and management. If you develop any worsening symptoms including fatigue, weakness, lightheadedness, shortness of breath or bleeding in your stool you need to return to the emergency department immediately. Print Language: Yi Disposition Disposition: Home, Self Care
[2025-04-27 11:57] LABS: Hematocrit 25.0 % (40-54); Hemoglobin 7.1 g/dL (13.0-16.5); Mean Corp Hgb Conc 28.4 g/dL (32-36); Mean Corpuscular Volume 114.2 fL (80-94); Mean Platelet Vol. 12.6 fl (6.2-12.0); POSITIVE COUNT YES; POSITIVE DIFFERENTIAL YES; POSITIVE MORPHOLOGY YES; Platelet Count 122 K/mm3 (150-450); RBC Distribution Width CV 15.9 % (11.6-14.6); RBC Distribution Width SD 65.7 fl (35.1-43.9); Red Blood Count 2.19 M/mm3 (4.6-6.2); White Blood Count 3.5 K/mm3 (4.4-11.0)
[2025-04-27 11:59] LABS: Differential Indicated MANUAL DIFF
[2025-04-27 12:08] LABS: Partial Thromboplast Time 30.3 Seconds (24.1-36.2); Prothrombin Time (Protime)PT. 15.9 SECONDS (11.7-14.9)
[2025-04-27 12:24] LABS: Neutrophil-Band 1 % (0-5); Neutrophil-Segmented 65 % (47-70); Nucleated Red Bld Cells,Manual 4 % (0-5); Total Cells Counted 100 (MANUAL DIFF)
[2025-04-27 12:26] LABS: Anisocytosis 1+; Polychromasia RARE
[2025-04-27 14:09] LABS: Anion Gap 7 (5-15); BUN 23 mg/dL (4-19); BUN/Creat Ratio 26.4 RATIO (10-20); Calcium,Total 8.4 mg/dL (7.6-11.0); Carbon Dioxide 23.8 mmol/L (21.0-32.0); Chloride 110 mmol/L (98-108); Estimated Creatinine Clearance 82.13 ml/min (50-250); Glucose 106 mg/dL (70-99); Potassium 4.0 mmol/L (3.3-5.1)
== END 2025-04-27 16:12 | disposition home or self-care (01) ==
PROVIDERS: Emergency Provider Student in an Organized Health Care Education/Training Program; PCP Family Medicine; Visit Provider Student in an Organized Health Care Education/Training Program
DX: R79.89 Other specified abnormal findings of blood chemistry (principal); J44.9 Chronic obstructive pulmonary disease, unspecified; I48.91 Unspecified atrial fibrillation; D64.9 Anemia, unspecified; Z87.891 Personal history of nicotine dependence; E78.00 Pure hypercholesterolemia, unspecified; I10 Essential (primary) hypertension; D69.6 Thrombocytopenia, unspecified; Z79.01 Long term (current) use of 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; Z79.899 Other long term (current) drug therapy; N40.0 Benign prostatic hyperplasia without lower urinary tract symptoms; Z79.51 Long term (current) use of inhaled steroids; Z98.41 Cataract extraction status, right eye; Z98.42 Cataract extraction status, left eye; Z90.49 Acquired absence of other specified parts of digestive tract; D72.819 Decreased white blood cell count, unspecified
CPT/HCPCS: 36430; 80048; 85025; 85610; 85730; 86850; 86900; 86901; 99284; P9016; A4216